=== PATIENT | female | born 1950 | race Caucasian/White ===

== ENCOUNTER 2025-05-13 05:54 | Day surgery (SDC) | payer MEDICARE, MEDICAID, SELFPAY ==
--- NOTE | 2025-05-10 12:17 | EKG12_ITS ---
Test Reason : PREOP Blood Pressure : */* mmHG Vent. Rate : 63 BPM Atrial Rate : 63 BPM P-R Int : 158 ms QRS Dur : 86 ms QT Int : 434 ms P-R-T Axes : 72 12 44 degrees QTcB Int : 444 ms Normal sinus rhythm Normal ECG Confirmed by DENEEN CHU, SUNSHINE ([id number]), sound editor MARIA GUADALUPE GUALLPA ([id number]) on 05/11/2025 8:25:26 AM Referred By: Yung Villatoro Confirmed By: SUNSHINE BROTHERS MD
[2025-05-10 13:34] LABS: Hematocrit 35.2 % (37-47); Hemoglobin 11.2 g/dL (12.0-15.0); Immature Granulocytes Count 0.010 X10^3/uL (0.0-0.0); Mean Corp Hgb Conc 31.8 g/dL (32-36); Mean Corpuscular Volume 93.9 fL (81-99); Mean Platelet Vol. 10.9 fl (6.2-12.0); NRBC Flagged by Analyzer 0 % (0-5); Platelet Count 247 K/mm3 (150-450); RBC Distribution Width CV 14.0 % (11.6-14.6); RBC Distribution Width SD 48.1 fl (35.1-43.9); Red Blood Count 3.75 M/mm3 (4.2-5.4); White Blood Count 6.9 K/mm3 (4.4-11.0)
[2025-05-10 13:59] LABS: AST(SGOT) 32 U/L (<=31); Alanine Aminotransfer ALT/SGPT 22 U/L (<=34); Albumin, Serum 4.1 g/dL (3.4-4.8); Alkaline Phosphatase 115 U/L (35-104); Anion Gap 8 (5-15); BUN 9 mg/dL (4-19); BUN/Creat Ratio 11.4 RATIO (10-20); Calcium,Total 9.2 mg/dL (7.6-11.0); Carbon Dioxide 26.4 mmol/L (21.0-32.0); Chloride 106 mmol/L (98-108); Globulin 2.6 g/dL (2.2-4.2); Glucose 82 mg/dL (70-99); Potassium 4.1 mmol/L (3.3-5.1)
--- NOTE | 2025-05-11 17:47 | PAT.ANE_ITS ---
Pre-Assessment Diagnosis/Proposed Procedure Planned Operative Procedure(s): (R) Osteotomy of the right first digit, Arthrodesis of the right second digit with possible arthroplasty, Right foot hardware removal. 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 When Was Last Pacemaker Check QUESTION #4 FULL TEXT: You/Your Family Experience fever (hyperthermia) with Anesthesia Last Oral Intake Last Oral intake: Last Oral Intake NPO since Meds taken in AM with sips of water? Meds patient instructed to take am of surgery PONV PONV - etl software engineer: PONV - etl software engineer Female Yes 05/09/25 11:43 HX of Motion Sickness No 05/09/25 11:43 HX of N/V After Surgery No 05/09/25 11:43 Non-Smoker Yes 05/09/25 11:43 Duration of Surgery greater No 05/09/25 11:43 than 60 minutes Number of Risk Factors 2 05/09/25 11:43 PONV Score Moderate Risk 05/09/25 11:43 Height & Weight Height & Weight: Anesthesia: Height & Weight Height 5 ft 2 in 08/26/13 13:52 Respiratory Assessment Respiratory Assessment - etl software engineer: Respiratory Tract Infection Hx - etl software engineer Hx Respiratory Tract Infection No 05/09/25 11:43 STOP Sleep Apnea STOP Sleep Apnea - etl software engineer: STOP Sleep Apnea - etl software engineer Hx Hypertension No 05/09/25 11:43 Hx Sleep Apnea No 05/09/25 11:43 CPAP No 08/19/13 11:15 BIPAP No 08/19/13 11:15 Do you snore loudly (louder No 05/09/25 11:43 than talking or can be heard Do you often feel tired/ No 05/09/25 11:43 fatigued/ sleepy during daytime? Has anyone observed you stop No 05/09/25 11:43 breathing during sleep? STOP Results Negative 05/09/25 11:43 QUESTION #5 FULL TEXT : Do you snore loudly (louder than talking or can be heard through closed doors)? 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 Specify any problems Hx of Preganancy in last 3 N/A 05/09/25 11:43 Months Nurse Filling Out Transfusion NBUCHER 05/09/25 11:43 & Questions: Date: 05/09/25 05/09/25 11:43 Time: 11:44 05/09/25 11:43 Patient unable to answer at this time (ie. confused, unrespo /Reproduction History /Reproductive History - etl software engineer: /Reproductive Hx- etl software engineer Hx Now No 05/09/25 11:43 Gestational Age (in weeks): EDC: Hx Hx Para Hx Section SAB No 05/09/25 11:43 Does the father of the baby or his family experience fever w Father of the baby Malignant Hypertension history comment [facility] Medical History (Updated 05/09/25 @ 11:52 by Krystle Hassan) Wears glasses Depression Anxiety Arthritis Wears dentures History of hiatal hernia History of IBS Non-smoker History of stress test Cardiology follow-up encounter Home Medications ?Medication ?Instructions ?Recorded ?Last Taken ?Type Bifidobacterium longum 10 million 10,000,000 cell PO D AILY 05/09/25 Unknown History cell capsule (Align (B.longum)) citalopram 40 mg tablet 40 mg PO DAILY 05/09/25 Unkn own History hydroxyzine HCl 25 mg tablet 25 mg PO TID PRN anxiety 05/09/25 Unknown History metoprolol succinate 25 mg 25 mg PO DAILY 12/15/25 Unk nown History tablet,extended release 24 hr pregabalin 100 mg capsule 100 mg PO TID 05/09/25 Unkno wn History vit C 250 mg-vit E 90 mg-zinc 40 1 tab PO BID 05/09/25 Unknown History mg-copper 1 [id number] capsule ([facility] AREDS-2) Allergy/AdvReac Type Severity Reaction Status Date / Time No Known Allergies Allergy Verified 05/09/25 11:36 Surgical History (Updated 05/09/25 @ 11:52 by Krystle Hassan) History of bilateral cataract extraction History of esophagogastroduodenoscopy (EGD) History of colonoscopy History of cholecystectomy History of ankle surgery History of back surgery History of foot surgery (~2021) History of brachioplasty (~2013) Social History Smoking Status: Never smoker Audit: Pertinent Findings Pertinent Findings EKG Perinent findings: 05/10/2025. Normal sinus rhythm Stress test pertinent findings: January 17, 2023. EF of 76%. No evidence for inducible ischemia. No evidence of scarred myocardium. Consult pertinent findings: 12/05/2022. Dr. Goss?cardiology. 1. Palpitations-likely secondary to PVCs. Continue Toprol-XL. 2. Generalized anxiety disorder?on Wellbutrin. 3. Dyspnea on exertion-questionable anginal equivalent. Holter monitor indicated a 2% burden. Will proceed with a nuclear stress test. Additional pertinent findings: August 2022. Holter monitor. Sinus rhythm. Occasional PVCs equals 2% burden. Sinus tachycardia for 18% of the time. 2 runs of nonsustained supraventricular tachycardia. Recommendation Anesthesia Recommendation Anesthesia recommendation: OPTIMIZED for anesthesia
[2025-05-13] VITALS (8 sets, daily range): BP systolic 90–145; BP diastolic 57–94; PULSE 68–80; RESP 12–18; TEMP 36.6–36.8; O2SAT 95–96; BMI 25.0
--- OUTSIDE RECORDS SUMMARY | 2025-05-13 05:58 | XMS RPT_ITS | CCD ---
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 Name Role Phone RODERICK HIDALGO Unavailable Unavailable CHAY PRECIADO Unavailable Unavailable ESTEFANY PRECIADO Unavailable Unavailable CHAY PRECIADO Unavailable Unavailable ESTEFANY PRECIADO Unavailable Unavailable ESTEFANY PRECIADO Primary Care Unavailable CHARITY HUANG Attending Unavailable CHARITY HUANG Admitting Unavailable Estefany Preciado MD Primary Care Provider Estefany Preciado MD Primary Care Provider Franko Wiley DO Unavailable Roderick Hidalgo DO Unavailable [phone] Dorita Cabrera DO Unavailable Chay Preciado MD Unavailable Estefany Preciado MD Unavailable Gagan Goodrich MD Unavailable SasEben ferreira DO Unavailable [phone] [place], [place] Unavailable Sagar Stout DO Unavailable Markel BARAHONA, Elis Unavailable Unavailable Markel BARAHONA, Elis Unavailable Unavailable Roderick Hidalgo DO Unavailable Moc, [place] Unavailable Estefany Preciado MD Primary Care Provider Franko Wiley DO Unavailable Roderick Hidalgo DO Unavailable Deborah DOE Dorita Unavailable Chay Preciado MD Unavailable Estefany Preciado MD Unavailable [phone] Gagan Goodrich MD Unavailable Sashanna DO River Unavailable [phone] [place], [place] Unavailable Girish DO Sagar K Unavailable GwenRoderick kan DO Unavailable [phone] [place], [place] Unavailable Markel BARAHONA, Elis Unavailable Unavailable Franko Wiley DO Unavailable [phone] Roderick Hidalgo DO Unavailable Deborah DOE Dorita Unavailable Chay Preciado MD Unavailable Estefany Preciado MD Unavailable [phone] Gagan Goodrich MD Unavailable Dakota Eben DOE Unavailable [phone] Girish DOE Sagar K Unavailable [place], [place] Unavailable Markel BARAHONA, Elis Unavailable Unavailable FRANKO MAURO Admitting Unavailable FRANKO MAURO Attending Unavailable ESTEFANY PRECIADO Primary Care Unavailable Ny DO, [place] [facility] Primary Care [facility] er PROVIDER, UNKNOWN Referring Unavailable PROVIDER, UNKNOWN Primary Care Unavailable [facility] er Susan King RN Unavailable Unavailable Estefany Preciado MD Primary Care Provider [facility] [place] [facility] Primary Care Unavai lable [facility], [facility] Referring Unav[place]able [place], [facility] Primary Care Unavai lable SELF Referring Unavailable DEVORAH SALAZAR Attending Unavailable [facility], [place] Primary Care Unavai labSTEPHEN Egan Referring Unavailable [facility], [facility] Primary Care Unavai PÉREZ Tovar Attending Unavailable STEPHEN RIZO Referring Unavailable [place], [facility] Primary [facility] UnaSTEPHEN Lima Referring Unavailable [place], [facility] Primary Care STEPHEN Paulino Referring Unavailable [place] WRIGHT Referring Unavailable [place], [facility] Primary Care UnaSTEPHEN Lima Referring Unavailable [place] [facility] [place] [facility] Primary Care Unavai labkaren SANTIAGO CAITLIN Y Attending Unavailable STEPHEN RIZO Referring Unavailable [place], [facility] Primary Care [place] [facility] Referring [place]able [place], [facility] Primary Care STEPHEN Paulino Referring Unavailable [place], [facility] Care Unavai labCAITLIN Dawson Y Referring Unavailable [place], [facility] Primary Care DEVORAH Keita Referring Unavailable [place] [facility] Primary Care UnavaCAITLIN Hylton Y Referring Unavailable [place] [facility] Primary Care DEVORAH Keita Referring Unavailable KALKADEVORAH Referring Unavailable [place] [facility] Primary Care [place]as[place]able [place] [facility] Primary Care ZI Colbert [facility] ZI Colbert Referring Unavailable [place] [facility] Primary Care [place]able [place] [facility] Referring [place]able [place] [facility] Primary Care DEVORAH Keita Referring Unavailable [place] [facility] Primary Care DEVORAH Keita Referring Unavailable MADAN WEBER Attending Unavailable [place] [facility] Primary Care DEVORAH Keita Referring Unavailable [place] [facility] Primary Care ZI Colbert Referring Unavailable Yung Villatoro Attending Unavailable JACK, CAITLIN Y Referring Unavailable [place] [facility] Primary Care Unavai labJELANI DawsonA Y Referring Unavailable [place] [facility] Primary Care UnavaDEVORAH Coleman Referring Unavailable [place] [facility] [place] [facility] Primary Care Unavai lable [facility] [place] [facility] Attending [place]able [place] [facility] Primary Care WILLAM Mejia Attending Unavailable ZI STANTON Referring Unavailable [place] [facility] Primary Care [place]able [place] [facility] Primary Care STEPHEN Paulino Attending Unavailable ZI STANTON Attending Unavailable [facility] Primary Care WILLAM Mejia Attending Unavailable ZI STANTON Referring Unavailable [place] [facility] Primary Care WILLAM Mejia Attending Unavailable ZI STANTON Referring [place]available [place] [facility] Primary [place] [facility] Primary Care STEPHEN Paulino Attending Unavailable [facility] Primary Care STEPHEN Paulino Attending Unavailable WILLAM MCHUGH Attending Unavailable ZI STANTON Referring Unavailable [place] [facility] Primary Care [place]able [place] [facility] Primary Care ZI Colbert Attending Unavailable ZI STANTON Referring Unavailable WILLAM MCHUGH Attending Unavailable [facility] Primary Care ZI Colbert Referring Unavailable [facility] Primary Care EBEN Umanzor Referring Unavailable ZI STANTON Attending Unavailable [facility] Attending Kipi lable [facility], [facility] Primary Care STEPHEN Paulino Attending Unavailable [facility] Primary Care ZI Colbert Referring Unavailable [facility] Primary Care WILLAM Mejia Attending Unavailable [facility] Primary Care STEPHEN Paulino Attending Unavailable [facility] Primary Care [place] [facility] Attending [place]able [place] [facility] Primary Care [place] [facility] Attending [place] [facility] Primary Care Unavai lable JEISON, WILLAM Attending Unavailable ZI STANTON Referring Unavailable [place] [facility] Primary [facility] kassie Medications Current Medications Medication Drug Class(es) Dates Sig (Normalized) Sig (Original) TYSHAWN B.LONGUM, 10 million cell cap (20 sources) Start: 12-28-2024 take 1 capsule by mouth once daily ALIGN, B.LONGUM, 10 million cell cap TAKE ONE CAPSULE BY MOUTH EVERY DAY 42 capsule 1 12/28/2024 Active Start: 09-27-2024 End: 12-28-2024 take 1 capsule by mouth once daily ALIGN, B.LONGUM, 10 million cell cap TAKE ONE CAPSULE BY MOUTH EVERY DAY 42 capsule 1 09/27/2024 12/28/2024 Discontinued Start: 09-27-2024 take 1 capsule by mo [facility] once daily ALIGN, B.LONGUM, 10 million cell cap TAKE ONE CAPSULE BY MOUTH EVERY DAY 42 capsule 1 09/27/2024 Active amoxicillin 500 mg oral capsule (20 sources) Penicillin-class Antibacterial Start: 09-22-2024 amoxicillin (AMOXIL) 500 mg capsule 09/22/2024 Active ascorbic acid 500 mg oral tablet (20 sources) Vitamin C Start: 02-14-2023 take 1 tablet by mouth once daily in the evening ascorbic acid, vitamin C, (VITAMIN C) 500 mg tablet Take 1 tablet by mouth once daily. 30 tablet 02/14/2023 3:01 PM EDT 02/14/2023 Active Comment on above: Take 1 tablet by sadia once daily. atorvastatin 20 mg oral tablet (20 sources) HMG-CoA Reductase Inhibitor Start: 07-02-2024 End: 07-02-2025 take 1 tablet by mouth once daily atorvastatin (LIPITOR) 20 mg tablet Indications: Lipids abnormal Take 1 tablet by mouth once daily. 90 tablet 3 07/02/2024 07/02/2025 Active bifidobacterium infantis 4 mg oral capsule (20 sources) Start: 01-14-2023 End: 06-21-2024 take 1 capsule by mouth once daily Bifidobacterium Infantis (ALIGN, B.INFANTIS,) 4 mg cap Indications: Other irritable bowel syndrome Take 1 capsule by mouth once daily. 42 capsule 1 06/21/2024 Active Comment on above: Take 1 capsule by mo ut once daily. take one capsule by mouth once daily budesonide 3 mg delayed release oral capsule (4 sources) Corticosteroid Start: 11-19-2022 End: 02-11-2023 take 3 capsules by mouth once daily, then take 2 capsules by mouth once daily, then take 1 capsule by mouth once daily budesonide, enteric coated (ENTOCORT EC) 3 mg 24 hr capsule Indications: Lymphocytic colitis Take 3 capsules by mouth once daily for 56 days, THEN 2 capsules once daily for 14 days, THEN 1 capsule once daily for 14 days. 210 capsule 0 11/19/2022 02/11/2023 Active Comment on above: Take 3 capsules by m outh once daily for 56 days, THEN 2 capsules once daily for 14 days, THEN 1 capsule once daily for 14 days. chlorhexidine gluconate 1.2 mg/ml mouthwash (20 sources) Start: 09-22-2024 Chlorhexidine Gluconate (PERIDEX) 0.12 % solution 09/22/2024 Active citalopram 20 mg oral tablet (5 sources) Serotonin Reuptake Inhibitor Start: 01-25-2025 End: 05-09-2025 take 1 tablet by mouth once daily, then take 2 tablets by mouth once daily citalopram (CELEXA) 20 mg tablet Take 1 tablet by mouth once daily for 14 days, THEN 2 tablets once daily. 194 tablet 01/25/2025 05/09/2025 Active docusate sodium 50 mg / sennosides, assisted 8.6 mg oral tablet (2 sources) Start: 11-21-2023 End: 12-01-2023 take 1 tablet by mouth twice daily senna-docusate (SENNA-S) 8.6-50 mg per tablet Take 1 tablet by mouth two times a day for 10 days. Hold for loose stool 20 tablet 0 11/21/2023 12/01/2023 Active hydrOXYzine hydrochloride 25 mg oral tablet (20 sources) Antihistamine Start: 03-22-2024 End: 01-28-2025 take 1 tablet by mouth three times daily as needed hydrOXYzine HCl (ATARAX) 25 mg tablet Indications: Anxiety with depression TAKE ONE TABLET BY MOUTH THREE TIMES A DAY NEEDED 90 tablet 01/28/2025 Active Start: 05-31-2023 End: 01-12-2024 take 1 tablet by mouth every eight hours as needed hydrOXYzine HCl (ATARAX) 25 mg tablet Take 1 tablet by mouth three times a day as needed. 30 tablet 2 10/14/2023 01/12/2024 Active Start: 09-04-2022 End: 11-12-2022 take 1 tablet by mouth once daily at bedtime hydrOXYzine HCl (ATARAX) 25 mg tablet Take 1 tablet by mouth daily at bedtime. 30 tablet 09/04/2022 11/12/2022 Discontinued Comment on above: Take 1 tablet by sadia th daily at bedtime. TAKE ONE TABLET BY M OUTH EVERY DAY AT BEDTIME prn ibuprofen 600 mg oral tablet (20 sources) Nonsteroidal Anti-inflammatory Drug Start: 09-22-2024 ibuprofen (MOTRIN) 600 mg tablet 09/22/2024 Active iv contrast (will be provided with radiology test) (3 sources) Start: 08-10-2024 End: 08-11-2024 iv contrast (will be provided with radiology test) MRI LSP Inject, intravenously, once for 1 dose. No IV access, insert saline lock prior to the beginning of sedation, infusion, injection of imaging exam. Discontinue saline lock post exam. If Pt. has a central line or IVAD, may access for administration according to line specific nursing protocol. Once exam is complete flush line and de-access according to line specific nursing protocol in the MR contrast administration guidelines link. 1 Each 08/10/2024 08/11/2024 Active Start: 07-16-2024 End: 07-17-2024 iv contrast (will be provide d with radiology test) Indications: Abnormal liver enzymes , Abnormal results of liver function studies CT LIVER W IVCON Inject, intravenously, once for 1 dose. No IV access, insert saline lock prior to the beginning of sedation, infusion, injection of imaging exam. Discontinue saline lock post exam. If Pt. has a central line or IVAD, may access for administration according to line specific nursing protocol. Once exam is complete flush line and de-access according to line specific nursing protocol in the CT contrast administration guidelines link. 1 Each 07/16/2024 07/17/2024 24 hr metoprolol succinate 25 mg extended release oral tablet (20 sources) beta-Adrenergic Alfonzo Start: 04-15-2024 End: 01-11-2025 take 1 tablet by mouth every hour metoprolol succinate ER (TOPROL XL) 25 mg 24 hr tablet TAKE ONE TABLET BY MOUTH EVERY AFTERNOON 90 tablet 1 01/11/2025 Active Start: 09-25-2022 End: 04-14-2024 take 1 tablet by mouth once daily metoprolol succinate ER (TOPROL XL) 25 mg 24 hr tablet take one tablet by mouth every day 90 tablet 01/15/2024 04/14/2024 Discontinued Comment on above: Take 1 tablet by sadia once daily. take one tablet by [facility] every day oxyCODONE hydrochloride 5 mg oral tablet (2 sources) Opioid Agonist Start: 11-21-2023 End: 11-28-2023 take 1 tablet by mouth every six hours as needed oxyCODONE IR (ROXICODONE) 5 mg immediate release tablet Indications: S/P lumbar fusion Take 1 tablet by mouth every 6 hours as needed for up to 7 days. 28 tablet 0 11/21/2023 11/28/2023 Active vit C/E/Zn/coppr/lutein/aad jennifer (PRESERVISION AREDS-2 ORAL) (20 sources) take 1 tablet by mouth twice daily vit C/E/Zn/coppr/lutein /zeaxan (PRESERVISION AREDS-2 ORAL) Take 1 tablet by mouth twice daily. Active take 1 tablet by sadia twice daily vit C/E/Zn/coppr/lutein/zeaxan (PRESERVI JAYMIE AREDS-2 ORAL) Take 1 tablet by mouth twice daily. 0 Active vit C/E/Zn/coppr /lutein/zeaxan (PRESERVISION AREDS-2 ORAL) Take by mouth. 0 Active Comment on above: Take by mouth. Take 1 tablet by sadia twice daily. Completed/Discontinued Medications Medication Drug Class(es) Dates Sig (Normalized) Sig (Original) acetaminophen 325 mg / oxyCODONE hydrochloride 5 mg oral tablet (10 sources) Opioid Agonist Start: 02-14-2023 End: 08-01-2023 take 1 tablet by mouth every six hours as needed for pain oxyCODONE-acetamin ophen (PERCOCET) 5-325 mg tablet Indications: Postoperative pain Take 1 tablet by mouth every 6 hours as needed for pain. 18 tablet 0 02/14/2023 08/01/2023 Discontinued Comment on above: Take 1 tablet by sadia every 6 hours as needed for pain. ALPRAZolam 0.5 mg disintegrating oral tablet (3 sources) Benzodiazepine Start: 12-03-2024 End: 12-03-2024 ALPRAZolam 0.5 mg dissolvable tablet Indications: ACUTE PROCEDURE-RELATED ANXIETY BRING 2 TABLETS TO PROCEDURE LOCATION ON THE DAY OF PROCEDURE, TO BE ADMINISTERED BY STAFF 1 tablet 12/03/2024 12/03/2024 Discontinued 24 hr buPROPion hydrochloride 150 mg extended release oral tablet (20 sources) Aminoketone Start: 07-11-2021 End: 02-13-2023 take 1 tablet by mouth once daily buPROPion XL (WELLBUTRIN XL) 150 mg 24 hr tablet Take 1 tablet by mouth once daily. 90 tablet 3 08/28/2022 02/13/2023 Discontinued Comment on above: Take 1 tablet by [facility] once daily. 12 hr carBAMazepine 100 mg extended release oral tablet (20 sources) Mood Stabilizer Start: 06-10-2024 End: 09-15-2024 take 1 tablet by mouth twice daily, then take 2 tablets by mouth twice daily carBAMazepine XR (TEGRETOL XR) 100 mg 12 hr tablet Indications: Trigeminal neuralgia Take 1 tablet by mouth two times a day for 7 days, THEN 2 tablets two times a day. 374 tablet 06/10/2024 09/07/2024 Discontinued colestipol hydrochloride 1000 mg oral tablet (4 sources) Bile Acid Sequestrant Start: 10-31-2022 End: 01-29-2023 take 1 tablet by mouth twice daily colestipol (COLESTID) 1 gram tablet Indications: Chronic diarrhea Take 1 tablet by mouth twice daily. 180 tablet 10/31/2022 01/14/2023 Discontinued (Discontinued by Patient) Comment on above: Take 1 tablet by [facility] twice daily. 1 ml dexamethasone phosphate 10 mg/ml injection (2 sources) Corticosteroid Start: 09-23-2024 End: 09-23-2024 dexAMETHasone sodium phosphate 10 mg injection (DECADRON) Start: 09-23-2024 End: 09-23-2024 10 mg, OTHER, ONCE, 1 dose, On [facility] 09/23/24 at 1400, Administer over 5 minutes. dicyclomine hydrochloride 20 mg oral tablet (8 sources) Anticholinergic Start: 09-04-2022 End: 01-14-2023 take 1 tablet by mouth at bedtime dicyclomine (BENTYL) 20 mg tablet Take 1 tablet by mouth before meals and at bedtime. 90 tablet 09/04/2022 01/14/2023 Discontinued (Discontinued by Patient) Comment on above: Take 1 tablet by sadia before meals and at bedtime. DULoxetine 60 mg delayed release oral capsule (20 sources) Serotonin and Norepinephrine Reuptake Inhibitor Start: 07-11-2021 End: 01-25-2025 take 1 capsule by mouth once daily DULoxetine (CYMBALTA) 60 mg capsule TAKE ONE CAPSULE BY MOUTH EVERY DAY 90 capsule 3 08/18/2024 01/25/2025 Discontinued (Course of therapy completed) Comment on above: Take 1 capsule by mo [facility] once daily. 12 hr hyoscyamine sulfate 0.375 mg extended release oral tablet (5 sources) Start: 08-28-2022 End: 09-04-2022 take 1 tablet by mouth twice daily hyoscyamine SR (LEVBID) 0.375 mg 12 hr tablet Take 1 tablet by mouth twice daily. 60 tablet 2 08/28/2022 09/04/2022 Discontinued (Course of therapy completed) Comment on above: Take 1 tablet by sadia twice daily. iohexol 300 mg injection (OMNIPAQUE 300) (4 sources) Start: 01-06-2025 End: 01-06-2025 iohexol 300 mg injection (OMNIPAQUE 300) Start: 01-06-2025 End: 01-06-2025 300 mg, OTHER, ONCE, 1 dose, On Jennifer 01/06/25 at 0830 Start: 09-23-2024 End: 09-23-2024 iohexol 300 mg injection (OM NIPAQUE 300) Start: 09-23-2024 End: 09-23-2024 300 mg, OTHER, ONCE, 1 dose, On Jennifer 09/23/24 at 1400 Lidocaine (6 sources) Antiarrhythmic, Amide Local Anesthetic Start: 01-06-2025 End: 01-06-2025 lidocaine 10 mg/mL (1 %) 100 mg injection (XYLOCAINE) Start: 01-06-2025 End: 01-06-2025 lidocaine 20 mg/mL (2 %) 200 mg injection (XYLOCAINE) Start: 01-06-2025 End: 01-06-2025 200 mg (10 mL), OTHER, ONCE, 1 dose, On Jennifer 01/06/25 at 0830 Start: 01-06-2025 End: 01-06-2025 100 mg (10 mL), OTHER, ONCE, 1 dose, On Jennifer 01/06/25 at 0830 Start: 09-23-2024 End: 09-23-2024 lidocaine (PF) 10 mg/mL (1 % ) 100 mg injection (XYLOCAINE) Start: 09-23-2024 End: 09-23-2024 100 mg, OTHER, ONCE, 1 dose, On Jennifer 09/23/24 at 1400 1 ml methylPREDNISolone acetate 40 mg/ml injection (2 sources) Corticosteroid Start: 01-06-2025 End: 01-06-2025 methylPREDNISolone acetate 40 mg injection (DEPO-Medrol) Start: 01-06-2025 End: 01-06-2025 40 mg, OTHER, ONCE, 1 dose, On Jennifer 01/06/25 at 0830 nabumetone 500 mg oral tablet (14 sources) Nonsteroidal Anti-inflammatory Drug Start: 10-02-2022 End: 01-14-2023 take 1 tablet by mouth twice daily as needed nabumetone (RELAFEN) 500 mg tablet TAKE ONE TABLET BY MOUTH TWICE A DAY NEEDED 60 tablet 1 10/02/2022 01/14/2023 Discontinued (Discontinued by Patient) Start: 07-11-2021 End: 08-28-2022 take 1 tablet by mouth twice daily as needed nabumetone (RELAFEN) 500 mg tablet TAKE ONE TABLET BY MOUTH TWICE A DAY NEEDED 60 tablet 1 06/27/2022 08/28/2022 Discontinued (Course of therapy completed) Comment on above: TAKE ONE TABLET BY M OUTH TWICE A DAY NEEDED Take 1 tablet by sadia th twice daily as needed. nitrofurantoin, macrocrystals 25 mg / nitrofurantoin, monohydrate 75 mg oral capsule (3 sources) Nitrofuran Antibacterial Start: 09-03-19 End: 09-08-19 take 1 capsule by mouth twice daily nitrofurantoin monohydrate and macrocrystal (MACROBID) 100 mg capsule Take 1 capsule by mouth twice daily for 5 days. 10 capsule 0 09/02/2022 09/07/2022 Comment on above: Take 1 capsule by mo [facility] twice daily for 5 days. perflutren lipid microspheres 1.3 mL in NaCl (PF) 0.9% 10 mL injection (DEFINITY) (20 sources) Start: 09-05-19 End: 12-04-19 24 perflutren lipid microspheres 1.3 mL in NaCl (PF) 0.9% 10 mL injection (DEFINITY) predniSONE 10 mg oral tablet (2 sources) Start: 06-10-19 End: 06-21-19 predniSONE (DELTASONE) 10 mg tablet Take 3 tablets by mouth for 3 days, then take 2 tablets by mouth for 3 days, then take 1 tablet by mouth for 3 days. 18 tablet 06/10/2024 06/21/2024 Discontinued pregabalin 100 mg oral capsule (20 sources) Start: 07-21-19 End: 05-03-20 take 1 capsule by mouth three times daily pregabalin (LYRICA) 100 mg capsule Indications: Fibromyalgia Take 1 capsule by mouth three times a day. 270 capsule 3 05/03/2024 09/07/2024 Discontinued Start: 06-12-2023 End: 06-11-2024 take 1 capsule by mouth three times daily pregabalin (LYRICA) 50 mg capsule Indications: Fibromyalgia Take 1 capsule by mouth three times a day. 270 capsule 3 06/12/2023 08/01/2023 Discontinued take 1 capsule by mo [facility] twice daily pregabalin (LYRICA) 75 mg capsule Take 75 mg by mouth two times a day. Active Comment on above: Take 1 capsule by [facility] three times a day. 125 ml sodium chloride 9 mg/ml prefilled syringe (20 sources) Start: 3 End: 4 sodium chloride 0.9 % (flush) 10 mL (BD POSIFLUSH) tiZANidine 2 mg oral tablet (8 sources) Central alpha-2 Adrenergic Agonist Start: 4 End: 4 take 1 tablet by mouth every eight hours as needed tiZANidine (ZANAFLEX) 2 mg tablet Indications: S/P lumbar fusion , Lumbar radiculopathy Take 1 tablet by mouth every 8 hours as needed for up to 21 doses. 21 tablet 0 11/21/2023 12/12/2023 Discontinued Problems Active Problems Problem Classification Problem Date Documented Da te Episodic/Chronic Anxiety disorders (20 sources) Generalized anxiety disorder; Translations: [Generalized anxiety disorder] Onset: 07-11-2021 Resolved: 07-15-2023 07-11-2021 Chronic Cardiac dysrhythmias (20 sources) Multiple premature ventricular complexes; Translations: [Ventricular premature depolarization] Onset: 01-17-2023 12-05-2022 Chronic Conditions associated with dizziness or vertigo (2 sources) Dizziness and giddiness; Translations: [Benign paroxysmal vertigo, unspecified ear] Onset: 03-10-2025 Episodic E Codes: Natural/environment (1 source) Overexertion from prolonged static or awkward postures, initial encounter; Translations: [OVEREXERT PROLNG STAT/AWK PST INIT] Onset: 07-23-2021 Episodic E Codes: Overexertion (1 source) Other slipping, tripping and stumbling without falling, initial encounter; Translations: [OTH SLIP TRIP STUMBL NO FALL INIT] Onset: 07-23-2021 Episodic Esophageal disorders (1 source) Gastro-esophageal reflux disease without esophagitis; Translations: [Gastroesophageal reflux disease, unspecified whether esophagitis present] Onset: 07-05-2024 Chronic Gastritis and duodenitis (20 sources) Chronic gastritis; Translations: [Unspecified chronic gastritis without bleeding] Onset: 07-05-2024 07-05-2024 Chronic Genitourinary symptoms and ill-defined conditions (1 source) Pat hematuria; Translations: [Gross hematuria] Episodic Malaise and fatigue (1 source) Fatigue; Translations: [Other fatigue] Episodic Noninfectious gastroenteritis (4 sources) Lymphocytic colitis; Translations: [Other and unspecified noninfectious gastroenteritis and colitis] 07-08-2023 Chronic Noninfectious gastroenteritis (3 sources) Chronic diarrhea; Translations: [Noninfective gastroenteritis and colitis, unspecified] Episodic Osteoarthritis (20 sources) Degenerative joint disease involving multiple joints; Translations: [Polyosteoarthritis, unspecified] Onset: 08-04-2023 07-15-2023 Chronic Other connective tissue disease (3 sources) Other symptoms and signs involving the musculoskeletal system; Translations: [Other musculoskeletal symptoms referable to limbs] Onset: 07-24-2023 07-24-2023 Episodic Other gastrointestinal disorders (1 source) Irritable bowel syndrome; Translations: [Other irritable bowel syndrome] 06-21-2024 Chronic Other gastrointestinal disorders (2 sources) Esophageal dysphagia; Translations: [Other dysphagia] 06-21-2024 Episodic Other gastrointestinal disorders (1 source) Altered bowel function; Translations: [Change in bowel habit] 01-25-2025 Episodic Other gastrointestinal disorders (1 source) Change in bowel habit; Translations: [Change in bowel habits] Onset: 01-25-2025 Episodic Other liver diseases (3 sources) Alkaline phosphatase raised; Translations: [Abnormal levels of other serum enzymes] 06-21-2024 Episodic Other liver diseases (2 sources) Liver enzymes abnormal; Translations: [Abnormal levels of other serum enzymes] 08-11-2024 Episodic Other nervous system disorders (1 source) Other chronic pain; Translations: [Chronic bilateral low back pain without sciatica] Onset: 02-18-2025 Chronic Other nervous system disorders (1 source) Other acute postprocedural pain; Translations: [Postoperative pain] Onset: 02-14-2023 Episodic Other nervous system disorders (13 sources) Impairment of balance; Translations: [Other abnormalities of gait and mobility] 12-03-2024 Episodic Other nervous system disorders (5 sources) Abnormal gait; Translations: [Unspecified abnormalities of gait and mobility] 01-28-2025 Episodic Other nervous system disorders (2 sources) Unspecified abnormalities of gait and mobility; Translations: [Gait abnormality] Onset: 03-10-2025 Episodic Other nervous system disorders (3 sources) Other abnormalities of gait and mobility; Translations: [Impairment of balance] Onset: 12-03-2024 Episodic Other non-traumatic joint disorders (1 source) Pain in right ankle and joints of right foot; Translations: [PAIN IN RIGHT ANKLE] Onset: 07-23-2021 Episodic Other nutritional; endocrine; and metabolic disorders (3 sources) Obesity; Translations: [Obesity, unspecified] 07-21-2023 Chronic Other nutritional; endocrine; and metabolic disorders (1 source) Body mass index 30+ - obesity; Translations: [Body mass index (BMI) 34.0-34.9, adult] 06-10-2024 Chronic Other nutritional; endocrine; and metabolic disorders (2 sources) Body mass index (BMI) 34.0-34.9, adult; Translations: [Class 1 obesity with body mass index (BMI) of 34.0 to 34.9 in adult, unspecified obesity type, unspecified whether serious comorbidity present] Onset: 06-10-2024 Chronic Other nutritional; endocrine; and metabolic disorders (1 source) Overweight in adulthood with body mass index of 25 or more but less than 30; Translations: [Overweight] 01-25-2025 Episodic Other nutritional; endocrine; and metabolic disorders (1 source) Overweight; Translations: [Overweight with body mass index (BMI) of 25 to 25.9 in adult] Onset: 01-25-2025 Episodic Other nutritional; endocrine; and metabolic disorders (1 source) Body mass index (BMI) 25.0-25.9, adult; Translations: [Overweight with body mass index (BMI) of 25 to 25.9 in adult] Onset: 01-25-2025 Episodic Other screening for suspected conditions (not mental disorders or infectious disease) (20 sources) Patient encounter status; Translations: [Encounter for screening mammogram for malignant neoplasm of breast] Onset: 06-10-2024 Episodic Spondylosis; intervertebral disc disorders; other back problems (18 sources) Inflammation of sacroiliac joint; Translations: [Sacroiliitis, not elsewhere classified] Onset: 10-08-2024 10-08-2024 Chronic Sprains and strains (1 source) Strain of unspecified muscle and tendon at ankle and foot level, right foot, initial encounter; Translations: [STRAIN UNS MANDT ANK FT LEVL RT INIT] Onset: 07-23-2021 Episodic Unclassified (1 source) Unknown / UNK(Unknown) Onset: 04-22-2017 Unclassified (1 source) Acute midline low back pain without sciatica; Translations: [Acute midline low back pain without sciatica] Onset: 07-24-2023 Unclassified (1 source) Chronic bilateral low back pain without sciatica; Translations: [Chronic bilateral low back pain without sciatica] Onset: 02-18-2025 Unclassified (1 source) Class 1 obesity with body mass index (BMI) of 34.0 to 34.9 in adult, unspecified obesity type, unspecified whether serious comorbidity present; Translations: [Class 1 obesity with body mass index (BMI) of 34.0 to 34.9 in adult, unspecified obesity type, unspecified whether serious comorbidity present] Onset: 06-21-2024 Past or Other Problems Problem Classification Problem Date Documented Da te Episodic/Chronic Abdominal hernia (20 sources) Hiatal hernia; Translations: [Diaphragmatic hernia without obstruction or gangrene] Onset: 07-05-2024 07-05-2024 Episodic Cardiac dysrhythmias (20 sources) Palpitations; Translations: [Palpitations] Onset: 12-05-2022 Episodic Other connective tissue disease (20 sources) Pain in right foot; Translations: [Pain in right foot] Onset: 08-28-2022 Resolved: 07-15-2023 Episodic Other connective tissue disease (20 sources) Fibromyalgia; Translations: [Fibromyalgia] Onset: 05-20-2023 05-20-2023 Episodic Other connective tissue disease (20 sources) Recurrent falls ; Translations: [Repeated falls] Onset: 08-04-2023 07-15-2023 Episodic Other connective tissue disease (20 sources) History of lumbar fusion; Translations: [Arthrodesis status] Onset: 11-20-2023 11-20-2023 Episodic Other connective tissue disease (1 source) Repeated falls; Translations: [Recurrent falls while walking] Onset: 08-04-2023 Episodic Other connective tissue disease (1 source) Arthrodesis status; Translations: [S/P lumbar fusion] Onset: 11-20-2023 Episodic Other connective tissue disease (1 source) Fibromyalgia; Translations: [Fibromyalgia] Onset: 05-20-2023 Episodic Other gastrointestinal disorders (2 sources) Other dysphagia; Translations: [Esophageal dysphagia] Onset: 06-24-2024 Episodic Other liver diseases (20 sources) Elevated liver enzymes level; Translations: [Abnormal levels of other serum enzymes] Onset: 05-20-2023 Episodic Other liver diseases (2 sources) Abnormal levels of other serum enzymes; Translations: [Abnormal liver enzymes] Onset: 07-13-2024 Episodic Other lower respiratory disease (1 source) Dyspnea, unspecified Onset: 04-22-2017 Episodic Other lower respiratory disease (20 sources) Dyspnea on exertion; Translations: [Other forms of dyspnea] Onset: 01-17-2023 12-05-2022 Episodic Other nervous system disorders (20 sources) Postoperative pain ; Translations: [Other acute postprocedural pain] Onset: 02-14-2023 Resolved: 07-15-2023 02-14-2023 Episodic Other nervous system disorders (20 sources) Trigeminal neuralgia; Translations: [Trigeminal neuralgia] Onset: 06-20-2024 06-10-2024 Episodic Other nervous system disorders (1 source) Trigeminal neuralgia; Translations: [Trigeminal neuralgia] Onset: 06-20-2024 Episodic Other non-traumatic joint disorders (20 sources) Chronic pain of left upper limb; Translations: [Pain in left shoulder] Onset: 07-11-2021 07-11-2021 Episodic Other non-traumatic joint disorders (20 sources) Joint pain; Translations: [Pain in unspecified joint] Onset: 07-27-2023 07-21-2023 Episodic Spondylosis; intervertebral disc disorders; other back problems (20 sources) Acute low back pain; Translations: [Acute midline low back pain without sciatica] Onset: 07-24-2023 07-24-2023 Episodic Superficial injury; contusion (20 sources) Contusion of coccyx; Translations: [Contusion of lower back and pelvis, initial encounter] Onset: 07-11-2021 Resolved: 07-15-2023 07-11-2021 Episodic Unclassified (1 source) History of lumbar fusion 08-10-2024 Unclassified (2 sources) Patient encounter status 08-31-2024 Results Test Name Value Interpretation Reference Range Facility [facility] 03-31-2025 CNOV Office Visit (AGSPIN E3) BRENT MOSQUEDA ([id number]) 1950 F Date Time Provider Department 03/31/25 11:30 AM WILLAM MCHUGH AGSPINE3 During your visit today, we recorded the following information about you: Willam Mchugh DC 03/31/2025 1:50 PM Signed Chiropractor Progress/Procedure Note Brent Mosqueda is a 74 year old female who presents for Chiropractic follow up for Low Back Pain [facility] 12/22 [facility] Have you noticed any improvement since your last visit? Has had continuous reduction of symptoms since the previous visit. Patient is currently having no pain today. Have you done any home exercises that Dr. Mchugh gave you? None given per insurance coverage What is your response to the home exercises? N/A What aggravates your pain? 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 0/10 How low has your pain level been on the pain scale since your last visit? 0/10 How high has your pain level been on the pain scale since your last visit? /. Since your last visit with Dr. Mchugh have you had any Images or injections? None REVIEW OF SYSTEMS: The patient reports weakness in both legs. PHYSICAL EXAM: The patient is alert and oriented in no acute distress. There is moderate hypertonicity through the lumbar paraspinal muscles. Range of motion: improved Pain on extension and rotation. Motor Strength: reduced Neurovascular intact. Orthopedic testing: NA. Spinal segmental dysfunction: na The patient is alert and oriented in no acute distress. I have confirmed and edited as necessary the HPI and ROS obtained by others. IMPRESSION AND PLAN: (M54.50, G89.29) Chronic bilateral low back pain without sciatica (primary encounter diagnosis) No orders found for this visit on 03/31/25. Treatments: SEATED Acupuncture: 38 minutes, lumbar spine, needles re-inserted every 15 minutes. Time in: 11:34 Time out: 12:34 Plan/Goal: Continue care until goal of standing/walking with less pain, less severe pain overall, and less pain in daily activity. Home Exercise Program has not been given. Return: 2 times, month Patient responded well, instructed to call with problems or concerns, responded well to all treatments. I personally performed treatments/procedures listed. Dr. Willam Mchguh, [place] Referring Provider: ZI STANTON [[id number]] Allergies As of Date: 03/31/2025 (No Known Allergies) Date Reviewed: 03/31/2025 Reviewed by: Kan Flores LMT - Fully Assessed Reason for Visit: Low Back Pain [126] Primary Visit Diagnosis:Chronic bilateral low back pain without sciatica [M54.50, G89.29] Order(s):ACUPUNCT W/O STIMUL 15 MIN [[id number]] Order #: [id number] ACUPUNCT W/O STIMUL ADDL 15M [[id number]] Order #: [id number]: 2 Prescriptions as of 03/31/2025 - hydrOXYzine HCl (ATARAX) 25 mg tablet TAKE ONE TABLET BY MOUTH THREE TIMES A DAY NEEDED - citalopram (CELEXA) 40 mg tablet Take 1 tablet by mouth once daily. - citalopram (CELEXA) 20 mg tablet Take 1 tablet by mouth once daily for 14 days, THEN 2 tablets once daily. - metoprolol succinate ER (TOPROL XL) 25 mg 24 hr tablet TAKE ONE TABLET BY MOUTH EVERY AFTERNOON - ALIGN, B.LONGUM, 10 million cell cap TAKE ONE CAPSULE BY MOUTH EVERY DAY - amoxicillin (AMOXIL) 500 mg capsule - Chlorhexidine Gluconate (PERIDEX) 0.12 % solution - ibuprofen (MOTRIN) 600 mg tablet - pregabalin (LYRICA) 75 mg capsule Take 75 mg by mouth two times a day. - Bifidobacterium Infantis (TYSHAWN B.INFANTSHAHRIAR,) 4 mg cap Take 1 capsule by mouth once daily. - vit C/E/Zn/coppr/lutein/ada jennifer (PRESERVISION AREDS-2 ORAL) Take 1 tablet by mouth twice daily. Problem List As Of Date 03/31/2025 Noted Resolved MERLYN (generalized anxiety disorder) [F41.1] 07/11/2021 07/15/2023 Contusion of coccyx [S30.0XXA] 07/11/2021 07/15/2023 Chronic left shoulder pain [M25.512, G89.29] 07/11/2021 Foot pain, right [M79.671] 08/28/2022 07/15/2023 Palpitations [R00.2] 12/05/2022 VELÁZQUEZ (dyspnea on exertion) [R06.09] 01/17/2023 PVC (premature ventricular contraction) [I49.3] 01/17/2023 Postoperative pain [G89.18] 02/14/2023 07/15/2023 Anxiety with depression [F41.8] 05/20/2023 Fibromyalgia [M79.7] 05/20/2023 Elevated liver enzymes [R74.8] 05/20/2023 Chronic joint pain [M25.50, G89.29] 07/27/2023 Spinal stenosis of lumbar region with neurogeni*07/27/2023 Generalized osteoarthrosis [M15.9] 08/04/2023 Recurrent falls while walking [R29.6] 08/04/2023 Lumbar radiculopathy [M54.16] 08/24/2023 Preop examination [Z01.818] 11/07/2023 S/P lumbar fusion [Z98.1] 11/20/2023 Trigeminal neuralgia [G50.0] 06/20/2024 Elevated LFTs [R79.89] 06/28/2024 Hiatal hernia [K44.9] 07/05/2024 Chronic gastritis without bleeding [K29.50] 07/05/2024 Generalized arthritis [M19.90] 01/30/2025 Arthritis of both hands [M19.041, M19.042] 01/30/2025 G (more content not included)... Normal [facility] CNTHERAPYon 03-17-2025 CNTHERAPY OT/PT/Speech Visit (LDPT) BRENT MOSQUEDA ([id number]) 1950 F Date Time Provider Department 03/17/25 11:30 AM MAGNOLIA BANKS LDPT Date Time Provider Department Center 03/17/2025 11:30 AM [id number], CHRISTI LDPT [facility] Reason for Visit: Physical Therapy [503] Primary Visit Diagnosis:Imbalance [R26.89] Other Visit Diagnoses:Recurrent falls while walking [R29.6] Lumbar radiculopathy [M54.16] Gait abnormality [R26.9] Dizziness [R42] Benign paroxysmal positional vertigo, unspecified laterality [H81.10] Allergies As of Date: 03/17/2025 (No Known Allergies) Date Reviewed: 03/11/2025 Reviewed by: Alejo Ibarra LMT - Fully Assessed Prescriptions as of 03/17/2025 - hydrOXYzine HCl (ATARAX) 25 mg tablet TAKE ONE TABLET BY MOUTH THREE TIMES A DAY NEEDED - citalopram (CELEXA) 40 mg tablet Take 1 tablet by mouth once daily. - citalopram (CELEXA) 20 mg tablet Take 1 tablet by mouth once daily for 14 days, THEN 2 tablets once daily. - metoprolol succinate ER (TOPROL XL) 25 mg 24 hr tablet TAKE ONE TABLET BY MOUTH EVERY AFTERNOON - ALIGN, B.LONGUM, 10 million cell cap TAKE ONE CAPSULE BY MOUTH EVERY DAY - amoxicillin (AMOXIL) 500 mg capsule - Chlorhexidine Gluconate (PERIDEX) 0.12 % solution - ibuprofen (MOTRIN) 600 mg tablet - pregabalin (LYRICA) 75 mg capsule Take 75 mg by mouth two times a day. - Bifidobacterium Infantis (TYSHAWN B.INFANTIS,) 4 mg cap Take 1 capsule by mouth once daily. - vit C/E/Zn/coppr/lutein/ada jennifer (PRESERVISION AREDS-2 ORAL) Take 1 tablet by mouth twice daily. Normal [facility] THERAPY NTon 03-17-2025 THERAPY NT HNO ID: [id number] Author: MAGNOLIA BANKS, PT Service: ? Author Type: Physical Therapist Type: Therapy (PT/OT/Speech/Resp) Filed: 03/17/2025 12:30 Note Text: Program_ID:[id number] Access Code: [email or web address] URL: [email or web address] Date: 03-17-2025 Prepared By: Magnolia Banks Program Notes Exercises - Romberg Stance - 3-5 x daily - 7 x weekly - 1 sets - 3 reps - 30 hold - Tandem Stance with Support - 3-5 x daily - 7 x weekly - 1 sets - 3 reps - 30 hold Normal [facility] CNOVon 03-11-2025 CNOV Office Visit (AGSPIN E3) BRENT MOSQUEDA ([id number]) 1950 F Date Time Provider Department 03/11/25 12:00 PM WILLAM MCHUGH AGSPINE3 During your visit today, we recorded the following information about you: Willam Mchugh DC 03/11/2025 2:02 PM Signed Chiropractor Progress/Procedure Note Brent Mosqueda is a 74 year old female who presents for Chiropractic follow up for Low Back Pain AO 11/22 acu Have you noticed any improvement since your last visit? Less pain for 1-2 days Have you done any home exercises that Dr. Mchugh gave you? None given What is your response to the home exercises? N/A What aggravates your pain? Non-specific ADLs What makes your pain better? Chiro care Current pain level? 2/10 How low has your pain level been on the pain scale since your last visit? 0/10 How high has your pain level been on the pain scale since your last visit? 5/10. Since your last visit with Dr. Mchugh have you had any Images or injections? No REVIEW OF SYSTEMS: The patient reports numbness or tingling. PHYSICAL EXAM: The patient is alert and oriented in no acute distress. There is moderate hypertonicity through the lumbar paraspinal muscles and gluteal muscles. Range of motion: improved Pain on extension, side bend, and rotation. Motor Strength: normal Neurovascular intact. Orthopedic testing: NA. Spinal segmental dysfunction: N/A. The patient is alert and oriented in no acute distress. I have confirmed and edited as necessary the HPI and ROS obtained by others. IMPRESSION AND PLAN: (M54.50, G89.29) Chronic bilateral low back pain without sciatica (primary encounter diagnosis) No orders found for this visit on 03/11/25. Treatments: Acupuncture: 38 minutes, lumbar spine, needles re-inserted every 15 minutes. MASSAGE CHAIR Time in: 12:01 Time out: 12:40 Plan/Goal: Continue care until goal of standing/walking with less pain, less severe pain overall, and less pain in daily activity. Return: 2 times, month Patient responded well, instructed to call with problems or concerns, responded well to all treatments. I personally performed treatments/procedures listed. Dr. Willam Mchugh, [place] Referring Provider: ZI STANTON [[id number]] Allergies As of Date: 03/11/2025 (No Known Allergies) Date Reviewed: 03/11/2025 Reviewed by: Alejo Ibarra LMT - Fully Assessed Reason for Visit: Low Back Pain [126] Primary Visit Diagnosis:Chronic bilateral low back pain without sciatica [M54.50, G89.29] Order(s):ACUPUNCT W/O STIMUL ADDL 15M [[id number]] Order #: [id number]: 2 ACUPUNCT W/O STIMUL 15 MIN [[id number]] Order #: [id number] Prescriptions as of 03/11/2025 - citalopram (CELEXA) 40 mg tablet Take 1 tablet by mouth once daily. - hydrOXYzine HCl (ATARAX) 25 mg tablet TAKE ONE TABLET BY MOUTH THREE TIMES A DAY NEEDED - citalopram (CELEXA) 20 mg tablet Take 1 tablet by mouth once daily for 14 days, THEN 2 tablets once daily. - metoprolol succinate ER (TOPROL XL) 25 mg 24 hr tablet TAKE ONE TABLET BY MOUTH EVERY AFTERNOON - TYSHAWN, B.LONGUM, 10 million cell cap TAKE ONE CAPSULE BY MOUTH EVERY DAY - amoxicillin (AMOXIL) 500 mg capsule - Chlorhexidine Gluconate (PERIDEX) 0.12 % solution - ibuprofen (MOTRIN) 600 mg tablet - pregabalin (LYRICA) 75 mg capsule Take 75 mg by mouth two times a day. - Bifidobacterium Infantis (TYSHAWN, B.INFANTIS,) 4 mg cap Take 1 capsule by mouth once daily. - vit C/E/Zn/coppr/lutein/ada jennifer (PRESERVISION AREDS-2 ORAL) Take 1 tablet by mouth twice daily. Problem List As Of Date 03/11/2025 Noted Resolved MERLYN (generalized anxiety disorder) [F41.1] 07/11/2021 07/15/2023 Contusion of coccyx [S30.0XXA] 07/11/2021 07/15/2023 Chronic left shoulder pain [M25.512, G89.29] 07/11/2021 Foot pain, right [M79.671] 08/28/2022 07/15/2023 Palpitations [R00.2] 12/05/2022 VELÁZQUEZ (dyspnea on exertion) [R06.09] 01/17/2023 PVC (premature ventricular contraction) [I49.3] 01/17/2023 Postoperative pain [G89.18] 02/14/2023 07/15/2023 Anxiety with depression [F41.8] 05/20/2023 Fibromyalgia [M79.7] 05/20/2023 Elevated liver enzymes [R74.8] 05/20/2023 Chronic joint pain [M25.50, G89.29] 07/27/2023 Spinal stenosis of lumbar region with neurogeni*07/27/2023 Generalized osteoarthrosis [M15.9] 08/04/2023 Recurrent falls while walking [R29.6] 08/04/2023 Lumbar radiculopathy [M54.16] 08/24/2023 Preop examination [Z01.818] 11/07/2023 S/P lumbar fusion [Z98.1] 11/20/2023 Trigeminal neuralgia [G50.0] 06/20/2024 Elevated LFTs [R79.89] 06/28/2024 Hiatal hernia [K44.9] 07/05/2024 Chronic gastritis without bleeding [K29.50] 07/05/2024 Generalized arthritis [M19.90] 01/30/2025 Arthritis of both hands [M19.041, M19.042] 01/30/2025 Gait abnormality [R26.9] 03/10/2025 Dizziness [R42] 03/10/2025 Benign paroxysmal positional vertigo [H81.10] 03/10/2025 Imbal (more content not included)... Normal [facility] [id number] 03-10-2025 [id number] HNO ID: [id number] Author: MAGNOLIA BANKS PT Service: ? Author Type: Physical Therapist Type: [id number] Filed: 03/10/2025 18:05 Note Text: [facility] Physical Therapy Plan of Care Certification Patient Name: Brent Mosqueda : 1950 [facility] #: [id number] Date: 03/10/2025 To: Caitlin Santiago MD From Therapist: Magnolia Banks PT RE: Patient Certification/ Recertification Your review, approval and electronic signature are required in order to comply with Payor: [facility] MEDICARE / Plan: [facility] MEDICARE / Product Type: Medicare / regulations. The identified Physical Therapy PLAN OF CARE for the patient is as follows: H81.10 Benign paroxysmal positional vertigo, unspecified laterality (primary encounter diagnosis) R26.9 Gait abnormality M54.16 Lumbar radiculopathy R26.89 Imbalance R42 Dizziness PLAN OF CARE: Assessment: Brent Mosqueda presents with chief complaint of imbalance that interferes with walking, stair negotiation . The patient presents with impairments in balance, overall function, posture, strength, and tissue tenderness. PROMIS? (Patient-Reported Outcomes Measurement Information System) scores were reviewed and identified as within normal limits. Prognosis for therapy is Good due to: current objective clinical presentation . Patient with balance deficits and possible left HC BPPV, cupulolithiasis. Demonstrates vestibular dysfunction with loss of balance with CTSIB testing, cervical spine also to be assessed. The patient will benefit from skilled therapy services to meet the goals established for this plan of care as noted below. Goals for Episode of Care: established 03/10/25 Patient will be able to correct postural deviations independently in order to allow for normal mechanics, to decrease current pain and prevent future recurrence. Patient will perform Romberg stance on firm surface with eyes closed for 30 seconds without LOB. Patient will improve FGA to WNL - no fall risk - in order to perform functional tasks with improved stability. Baseline to be determined next session. Patient will have negative positional testing for BPPV. Patient/family member will be independent in performing self PRT. Patient will verbalize the understanding of the diagnosis BPPV, how to recognize symptoms and what to do if they return. Patient will demonstrate normal active cervical spine range of motion to restore posture and complete ADLS with trace report of dizziness/imbalance. Patient will be independent with home exercise program and progression. Patient will return to prior level of function with all activities of daily living with trace reports of dizziness. Patient will demonstrate the ability to complete VOR in static and dynamic positions with trace report of dizziness. Patient Goals: to not be so wbbly and drunklike. Time Frame for Goals and Treatment : 06/08/25 Planned Interventions, Frequency, and Duration: Current Frequency: 1x/week Duration: 12 weeks Total Number of Visits Planned: 8 Planned Treatment Interventions: Therapeutic exercise (74330), Neuromuscular re-education (45467), Manual therapy (40606), Therapeutic activities (03287), Canalith Repositioning Maneuvers (46483) PLAN FOR NEXT VISIT: retest for HC BPPV and treat with appropriate CRM, assess c-spine and complete FGA Patient demonstrates good understanding of plan of care and treatment. The above goals and plan of care were discussed and agreed upon by patient/family. For further details regarding this patient refer to the Physical Therapy electronically documented visit dated 03/10/2025. Provider Attestation I have reviewed the treatment plan for Brent Mosqueda, [facility]# [id number] for the period of 03/10/25 -- 06/08/25, established on 03/10/2025. Signature certifies the need for therapy services. Normal [facility] CNTHERAPYon 03-10-2025 CNTHERAPY OT/PT/Speech Visit (LDPT) BRENT MOSQUEDA ([id number]) 1950 F Date Time Provider Department 03/10/25 10:00 AM MAGNOLIA BANKS LDPT Date Time Provider Department Center 03/10/2025 10:00 AM [id number], CHRISTI LDPT [facility] Reason for Visit: PT Eval [747] Primary Visit Diagnosis:Benign paroxysmal positional vertigo, unspecified laterality [H81.10] Other Visit Diagnoses:Gait abnormality [R26.9] Lumbar radiculopathy [M54.16] Imbalance [R26.89] Dizziness [R42] Allergies As of Date: 03/10/2025 (No Known Allergies) Date Reviewed: 02/22/2025 Reviewed by: Susan Beth MA - Fully Assessed Prescriptions as of 03/10/2025 - citalopram (CELEXA) 40 mg tablet Take 1 tablet by mouth once daily. - hydrOXYzine HCl (ATARAX) 25 mg tablet TAKE ONE TABLET BY MOUTH THREE TIMES A DAY NEEDED - citalopram (CELEXA) 20 mg tablet Take 1 tablet by mouth once daily for 14 days, THEN 2 tablets once daily. - metoprolol succinate ER (TOPROL XL) 25 mg 24 hr tablet TAKE ONE TABLET BY MOUTH EVERY AFTERNOON - TYSHAWN, B.LONGUM, 10 million cell cap TAKE ONE CAPSULE BY MOUTH EVERY DAY - amoxicillin (AMOXIL) 500 mg capsule - Chlorhexidine Gluconate (PERIDEX) 0.12 % solution - ibuprofen (MOTRIN) 600 mg tablet - pregabalin (LYRICA) 75 mg capsule Take 75 mg by mouth two times a day. - Bifidobacterium Infantis (TYSHAWN B.INFANTSHAHRIAR,) 4 mg cap Take 1 capsule by mouth once daily. - vit C/E/Zn/coppr/lutein/ada jennifer (PRESERVISION AREDS-2 ORAL) Take 1 tablet by mouth twice daily. Normal [facility] CNOVon 03-08-[address] [facility] Office Visit (FPDOYL ) BRENT MOSQUEDA ([id number]) 1950 F Date Time Provider Department 03/08/25 2:30 PM PORTIA CALHOUN FPDOYL During your visit today, we recorded the following information about you: Pulse Blood pressure Weight Height 60/minute 130/60 61.2 kg 1.575 m Portia Calhoun DO 03/13/2025 7:22 PM Signed Subjective The patient is a 74-year-old female with depression, presenting for follow-up and evaluation of citalopram efficacy and side effects. Brent Mosqueda is a 74-year-old female with a history of depression, presenting for follow-up. Depression: - Follow-up visit, last seen 6 weeks ago. - Started on citalopram 40 mg at last visit; reports some improvement in mood. - Experiences brain zaps occasionally, believes they are related to serotonin level fluctuations. - Denies missing doses of medication. - Lives with a narcissist who is very controlling; recent conflicts over personal finances. - Expresses desire to continue current medication for a longer period to assess effectiveness. Weight Loss: - Intentional weight loss from 188 lbs to 135 lbs over 8 months. - Practices intermittent fasting, eating only between 12:00 and 20:00. 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 Rizo REMOVAL GALLBLADDER FAMILY HISTORY Problem Relation Age of Onset other (multiple myeloma) Mother COPD Father No Known Problems Sister No Known Problems Brother No Known Problems Brother Colon Cancer No Family History SOCIAL HISTORY[1] Current Outpatient Medications Medication Sig hydrOXYzine HCl (ATARAX) 25 mg tablet TAKE ONE TABLET BY MOUTH THREE TIMES A DAY NEEDED citalopram (CELEXA) 20 mg tablet Take 1 tablet by mouth once daily for 14 days, THEN 2 tablets once daily. metoprolol succinate ER (TOPROL XL) 25 mg 24 hr tablet TAKE ONE TABLET BY MOUTH EVERY AFTERNOON Deborah VILLAGRAN.LONGUM, 10 million cell cap TAKE ONE CAPSULE BY MOUTH EVERY DAY amoxicillin (AMOXIL) 500 mg capsule Chlorhexidine Gluconate (PERIDEX) 0.12 % solution ibuprofen (MOTRIN) 600 mg tablet pregabalin (LYRICA) 75 mg capsule Take 75 mg by mouth two times a day. Bifidobacterium Infantis (TYSHAWN BCHANTELL,) 4 mg cap Take 1 capsule by mouth once daily. vit C/E/Zn/coppr/lutein/ada jennifer (PRESERVISION AREDS-2 ORAL) Take 1 tablet by mouth twice daily. citalopram (CELEXA) 40 mg tablet Take 1 tablet by mouth once daily. No current facility-administered medications for this visit. Objective BP 130/60 (BP Site: Right Arm, BP Position: Sitting) Pulse 60 Ht 5' 2 (1.575 m) Wt 135 lb (61.2 kg) SpO2 98% BMI 24.69 kg/m? Physical Exam GENERAL: NAD, alert and oriented SKIN: unremarkable, no rash or skin lesions. HEAD: normocephalic EYES: PERRLA, EOMI, conjunctiva clear EARS: external ears normal, canals clear, TM's normal. NOSE/SINUSES: Nares normal. Septum midline. OROPHARYNX: lips, mucosa, and tongue normal, good dentition. No oral lesions noted. NECK: Supple, no lymphadenopathy, normal thyroid, no carotid bruits. LUNGS: Clear to auscultation bilaterally, no wheezes/rhonchi/rales. HEART: Regular rate and rhythm, no murmurs. No ectopy. EXTREMITIES: Normal, No deformities, No skin discoloration, No edema. NEURO: Awake, alert and oriented x3, cranial nerves II-XII grossly intact, normal gait, no involuntary motions Assessment AND Plan 1. Anxiety with depression (F41.8) - On citalopram 40 mg daily; reports some improvement in mood but continues to experience intermittent brain zaps. - Discussed option to change medication; patient prefers to continue current regimen and reassess at a later date. 2. Lumbar radiculopathy (M54.16) 3. Encounter for screening mammogram for malignant neoplasm of breast (Z12.31) - Mammogram performed yesterday. Portia Calhoun, DO Return in about 6 months (around 09/06/2025). Recording using [employer] software for draft documentation of the visit was discussed with the patient/authorized physician representative; all questions welcomed and answered. Patient/authorized physician representative agreed to proceed (more content not included)... Normal [facility] ARIAN SCREENING W TOMOon 03-07 ARIAN SCREENING W TUCKER * * *Final Report* * * DATE OF EXAM: Mar 07 2025 1:46PM [id number] - ARIAN SCREENING W TUCKER / PROCEDURE REASON: Encounter for screening mammogram for breast cancer * * * * Physician Interpretation * * * * RESULT: [facility] [address] [place] [address] #[id number] - ARIAN SCREENING W TUCKER HISTORY: 74 year-old patient presents for screening. Patient is asymptomatic in both breasts. Patient states no personal history of breast cancer. COMPARISON STUDIES: This is a baseline study. MAMMOGRAM TECHNIQUE: The study was acquired using full field digital technology and interpreted from soft copy. Digital Breast Tomosynthesis (DBT) images were obtained and used to assist in the interpretation of this examination. MAMMOGRAM FINDINGS: There are scattered areas of fibroglandular density. No suspicious masses, calcifications or other abnormalities are seen in either breast. IMPRESSION: There is no mammographic evidence of malignancy in either breast. Routine screening mammogram is recommended. Annual mammogram will be due in 1 year. BI-RADS Category 1: Negative RISK: Based on the Tyrer-Cuzick (TC) risk assessment model, this patient has a 1.3% lifetime risk of developing breast cancer, meaning they are at average risk for developing breast cancer. However, this is only an estimate based on available history provided on the patient's questionnaire. We encourage all patients to talk with their providers about these results, further recommendations for managing breast health, and appropriate supplemental screening options if the patient has dense breast tissue. Interpreting Radiologist: Jose Sanchez M.D. Electronically signed on: 03/12/2025 Fiberglass Model Maker: AMARA Transcribe Date/Time: Mar 07 2025 1:26P Dictated by: JOSE SANCHEZ MD This examination was interpreted and the report reviewed and electronically signed by: JOSE SANCHEZ MD on Mar 12 2025 10:31AM EST [id number] Normal [facility] HbA1c (Bld)on 02-24-2025 Average glucose Estimated from glycated hemoglobin (Bld) [Mass/Vol] 105 mg/dL Normal [facility] Comment on above: Order Comment: Speci men Type: BLOOD SPECIMENOrdering Facility: [facility] Address: [address] [place], [place] [address] Result Comment: eAG: (Estimated average glucose) is a calculated value from HgbA1c and is physician representative of the average blood glucose level in the last 2-3 month period. Performed By: #### 5 5454-3 ####[facility] LABCLIA [id number] [place] [address] [place] HbA1c (Bld) [Mass fraction] 5.3 % Normal 4.3-5.6 [facility] Comment on above: Order Comment: Speci men Type: BLOOD SPECIMENOrdering Facility: [facility] Address: [address] [place] [address] Result Comment: Amer ican Diabetes Association guidelines indicate that patients with HgbA1c in the range 5.7-6.4% are at increased risk for development of diabetes, and intervention by lifestyle modification may be beneficial. HgbA1c greater or equal to 6.5% is considered diagnostic of diabetes. Performed By: #### 5 5454-3 ####[facility] LABCLIA [id number] [place] [address] [place] Magnesium SerPl-mCncon 02-24 Magnesium [Mass/Vol] 1.9 mg/dL Normal 1.7-2.3 [facility] Comment on above: Order Comment: Speci men Type: BLOOD SPECIMENOrdering Facility: [facility] Address: [address] [place] [address] Performed By: #### 1 9123-9 ####[facility] [id number] [place] [address] [place] TSH W/REFLEX FT4on 5 TSH Qn 1.980 m[IU]/L Normal 0.270-4.200 [facility] Comment on above: Order Comment: Speci men Type: BLOOD SPECIMENOrdering Facility: [facility] Address: [address] [place] [address] Performed By: #### 2 132-9, TSHRF ####[facility] LABIA [id number] [place] [id number] [place] Vit [facility] Cobalamin (Vitamin B12) [Mass/Vol] 339 pg/mL Normal 232-1245 [facility] Comment on above: Order Comment: Speci men Type: BLOOD SPECIMENOrdering Facility: [facility] Address: [address] [place] [address] Performed By: #### 2 132-9, TSHRF ####[facility] [id number] [place] [id number] [place] CNOVon 02-22-2025 CN[facility] Office Visit (NEURMM ) BRENT MOSQUEDA ([id number]) 1950 F Date Time Provider Department 02/22/25 8:00 AM CAITLIN SANTIAGO NEURMM During your visit today, we recorded the following information about you: Pulse Respiration Blood pressure Weight 64/minute 16/minute 124/75 62.4 kg Caitlin Santiago MD 02/22/2025 5:13 PM Signed 02/16/2025 Sleep Apnea Probability Snores loudly: No Tired, fatigued or sleepy in daytime: Yes Stops breathing or choking/gasping during sleep: No High blood pressure: No Sleep Apnea Probability Score: 28 (Sleep study not recommended) Neurological [place] February 22, 2025 Consultation My final recommendations will be communicated back to the requesting physician by way of shared medical record or letter via US mail. Referring physician:Stephen Aguila Main Level [facility] [id number] Patient presents with: Consult: Abnormality of gait Accompanied by Self. Referred by Stephen Aguila Main [facility] [id number]. HISTORY AND PHYSICAL Brent is a 74-year-old rpcxu-mjhv-eooopass female with a history of cervical and lumbar spine surgery, chronic back and neck pain, and right ankle arthrodesis, presenting for evaluation of chronic imbalance and falls. Brent reports a history of chronic imbalance and unsteady gait for well over a year. She describes difficulty walking in a straight line and frequently needing to push herself off dahl when walking down hallways. She characterizes her gait as walking like a drunk. She also reports intermittent dizziness, which she describes as a swinging sensation rather than true vertigo. The dizziness is not constant and is not associated with any hearing problems, tinnitus, or ear pain. She does not experience dizziness when lying in bed or turning over. She reports frequent falls, sometimes due to imbalance and sometimes due to mechanical factors such as tripping over objects or being knocked over by her dog. The most recent fall due to imbalance occurred a couple of weeks ago. She reports difficulty getting up after falls, though she notes that she is now able to get up off the ground more easily than before. She expresses fear of falling in public and describes her symptoms as very unsettling. She reports that her leg strength is improving, but her walking continues to worsen. Her medical history is significant for chronic back and neck pain, as well as right ankle arthrodesis performed in 2001 following a compound fracture from a horse-riding accident. She also reports numbness in her left foot following surgery approximately 2 years ago. She has a history of hypertension and is currently taking metoprolol 25 mg daily at noon. She previously took Lipitor but discontinued it due to side effects. She also takes Lyrica, which she currently takes in the morning. She has not undergone any nerve testing on her legs and has not participated in vestibular therapy. She has completed physical therapy a couple of times, most recently after her left foot surgery, but has not participated in therapy specifically for balance. She does not use any assistive devices for walking, such as a cane or walker, though she has considered using a walking stick. She reports drinking Pepsi Zero regularly and does not drink much water. She denies any personal or family history of diabetes or neurological disorders. 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 194 tablet 0 metoprolol succinate ER (TOPROL XL) 25 mg 24 hr tablet TAKE ONE TABLET BY MOUTH EVERY AFTERNOON 90 tablet 1 ibuprofen (MOTRIN) 600 mg tablet pregabalin (LYRICA) 75 mg capsule Take 75 mg by mouth two times a day. vit C/E/Zn/coppr/lutein/ada jennifer (PRESERVISION AREDS-2 ORAL) Take 1 tablet by mouth twice daily. ALIGN, B.LONGUM, 10 million cell cap TAKE ONE CAPSULE BY MOUTH EVERY DAY (Patient not taking: Reported on 01/28/2025) 42 capsule 1 amoxicillin (AMOXIL) 500 mg capsule (Patient not taking: Reported on 01/28/2025) Chlorhexidine Gluconate (PERIDEX) 0.12 % solution (Patient not taking: Reported on 02/22/2025) atorvastatin (LIPITOR) 20 mg tablet Take 1 tablet by mouth once daily. 90 tablet 3 Bifidobacterium (more content not included)... Normal [facility] CNOVon 02-18-2025 CNOV Office Visit (AGSPIN E3) BRENT MOSQUEDA ([id number]) 1950 F Date Time Provider Department 02/18/25 1:00 PM WILLAM MCHUGH AGSPINE3 During your visit today, we recorded the following information about you: Willam Mchugh DC 02/18/2025 1:54 PM Signed Chiropractor Progress/Procedure Note Brent Mosqueda is a 74 year old female who presents for Chiropractic follow up for Low Back Pain VN 10/22 ACU Have you noticed any improvement since your last visit? Yes patient states she has had little to no pain at all following visit. Have you done any home exercises that Dr. Mchugh gave you? No What is your response to the home exercises? N/A What aggravates your pain? ADL's What makes your pain better? Chiro care Current pain level? 2/10 How low has your pain level been on the pain scale since your last visit? 0/10 How high has your pain level been on the pain scale since your last visit? 7/10. Since your last visit with Dr. Mchugh have you had any Images or injections? MRI on 02/08 REVIEW OF SYSTEMS: The patient reports numbness or tingling. PHYSICAL EXAM: The patient is alert and oriented in no acute distress. There is mild to moderate hypertonicity through the lumbar paraspinal muscles and gluteal muscles. Range of motion: improved Pain on flexion and extension. Motor Strength: normal Neurovascular intact. Orthopedic testing: NA. Spinal segmental dysfunction: na The patient is alert and oriented in no acute distress. I have confirmed and edited as necessary the HPI and ROS obtained by others. IMPRESSION AND PLAN: (M54.50, G89.29) Chronic bilateral low back pain without sciatica (primary encounter diagnosis) No orders found for this visit on 02/18/25. Treatments: Acupuncture: 38 minutes, lumbar spine, needles re-inserted every 15 minutes. MASSAGE CHAIR Time in: 12:47 Time out: 1:25 Plan/Goal: Continue care until goal of less severe pain overall. Return: 2 times, month Patient responded well, instructed to call with problems or concerns, responded well to all treatments. I personally performed treatments/procedures listed. Dr. Willam Mchugh, TERI Referring Provider: ZI STANTON [[id number]] Allergies As of Date: 02/18/2025 (No Known Allergies) Date Reviewed: 02/18/2025 Reviewed by: Puja Cornejo LMT - Fully Assessed Reason for Visit: Low Back Pain [126] Primary Visit Diagnosis:Chronic bilateral low back pain without sciatica [M54.50, G89.29] Order(s):ACUPUNCT W/O STIMUL 15 MIN [[id number]] Order #: [id number] ACUPUNCT W/O STIMUL ADDL 15M [[id number]] Order #: [id number]: 2 Prescriptions as of 02/18/2025 - hydrOXYzine HCl (ATARAX) 25 mg tablet TAKE ONE TABLET BY MOUTH THREE TIMES A DAY NEEDED - citalopram (CELEXA) 20 mg tablet Take 1 tablet by mouth once daily for 14 days, THEN 2 tablets once daily. - metoprolol succinate ER (TOPROL XL) 25 mg 24 hr tablet TAKE ONE TABLET BY MOUTH EVERY AFTERNOON - ALIGN, B.LONGUM, 10 million cell cap TAKE ONE CAPSULE BY MOUTH EVERY DAY - amoxicillin (AMOXIL) 500 mg capsule - Chlorhexidine Gluconate (PERIDEX) 0.12 % solution - ibuprofen (MOTRIN) 600 mg tablet - pregabalin (LYRICA) 75 mg capsule Take 75 mg by mouth two times a day. - atorvastatin (LIPITOR) 20 mg tablet Take 1 tablet by mouth once daily. - Bifidobacterium Infantis (TYSHAWN, B.INFANTIS,) 4 mg cap Take 1 capsule by mouth once daily. - ascorbic acid, vitamin C, (VITAMIN C) 500 mg tablet Take 1 tablet by mouth once daily. - vit C/E/Zn/coppr/lutein/ada jennifer (PRESERVISION AREDS-2 ORAL) Take 1 tablet by mouth twice daily. Problem List As Of Date 02/18/2025 Noted Resolved MERLYN (generalized anxiety disorder) [F41.1] 07/11/2021 07/15/2023 Contusion of coccyx [S30.0XXA] 07/11/2021 07/15/2023 Chronic left shoulder pain [M25.512, G89.29] 07/11/2021 Foot pain, right [M79.671] 08/28/2022 07/15/2023 Palpitations [R00.2] 12/05/2022 VELÁZQUEZ (dyspnea on exertion) [R06.09] 01/17/2023 PVC (premature ventricular contraction) [I49.3] 01/17/2023 Postoperative pain [G89.18] 02/14/2023 07/15/2023 Anxiety with depression [F41.8] 05/20/2023 Fibromyalgia [M79.7] 05/20/2023 Elevated liver enzymes [R74.8] 05/20/2023 Chronic joint pain [M25.50, G89.29] 07/27/2023 Spinal stenosis of lumbar region with neurogeni*07/27/2023 Generalized osteoarthrosis [M15.9] 08/04/2023 Recurrent falls while walking [R29.6] 08/04/2023 Lumbar radiculopathy [M54.16] 08/24/2023 Preop examination [Z01.818] 11/07/2023 S/P lumbar fusion [Z98.1] 11/20/2023 Trigeminal neuralgia [G50.0] 06/20/2024 Elevated LFTs [R79.89] 06/28/2024 Hiatal hernia [K44.9] 07/05/2024 Chronic gastritis without bleeding [K29.50] 07/05/2024 Generalized arthritis [M19.90] 01/30/2025 Arthritis of both hands [M19.041, M19.042] 01/30/2025 Encounter Status:Closed by WILLAM MCHUGH (more content not included)... [facility] BR[facility] MOSQUEDA ([id number]) 1950 F Date Time Provider Department 02/10/25 DEVORAH SALAZAR GSTNOR During your visit today, we recorded the following information about you: Linette Rizo MA 02/10/2025 11:52 AM Signed PA submitted in Cover my meds for Align. Waiting for response from insurance. STEVO Price Erin M, MA 02/10/2025 2:56 PM Signed Align was denied by insurance. Pt notified Linette Rizo MA Allergies As of Date: 02/10/2025 (No Known Allergies) Date Reviewed: 02/04/2025 Reviewed by: Alejo Ibarra LMT - Fully Assessed Reason for Visit: Medication Authorization [1249] Prescriptions as of 02/10/2025 - hydrOXYzine HCl (ATARAX) 25 mg tablet TAKE ONE TABLET BY MOUTH THREE TIMES A DAY NEEDED - citalopram (CELEXA) 20 mg tablet Take 1 tablet by mouth once daily for 14 days, THEN 2 tablets once daily. - metoprolol succinate ER (TOPROL XL) 25 mg 24 hr tablet TAKE ONE TABLET BY MOUTH EVERY AFTERNOON - ALIGN, B.LONGUM, 10 million cell cap TAKE ONE CAPSULE BY MOUTH EVERY DAY - amoxicillin (AMOXIL) 500 mg capsule - Chlorhexidine Gluconate (PERIDEX) 0.12 % solution - ibuprofen (MOTRIN) 600 mg tablet - pregabalin (LYRICA) 75 mg capsule Take 75 mg by mouth two times a day. - atorvastatin (LIPITOR) 20 mg tablet Take 1 tablet by mouth once daily. - Bifidobacterium Infantis (ALIGN, B.INFANTIS,) 4 mg cap Take 1 capsule by mouth once daily. - ascorbic acid, vitamin C, (VITAMIN C) 500 mg tablet Take 1 tablet by mouth once daily. - vit C/E/Zn/coppr/lutein/ada jennifer (PRESERVISION AREDS-2 ORAL) Take 1 tablet by mouth twice daily. Problem List As Of Date 02/10/2025 Noted Resolved MERLYN (generalized anxiety disorder) [F41.1] 07/11/2021 07/15/2023 Contusion of coccyx [S30.0XXA] 07/11/2021 07/15/2023 Chronic left shoulder pain [M25.512, G89.29] 07/11/2021 Foot pain, right [M79.671] 08/28/2022 07/15/2023 Palpitations [R00.2] 12/05/2022 VELÁZQUEZ (dyspnea on exertion) [R06.09] 01/17/2023 PVC (premature ventricular contraction) [I49.3] 01/17/2023 Postoperative pain [G89.18] 02/14/2023 07/15/2023 Anxiety with depression [F41.8] 05/20/2023 Fibromyalgia [M79.7] 05/20/2023 Elevated liver enzymes [R74.8] 05/20/2023 Chronic joint pain [M25.50, G89.29] 07/27/2023 Spinal stenosis of lumbar region with neurogeni*07/27/2023 Generalized osteoarthrosis [M15.9] 08/04/2023 Recurrent falls while walking [R29.6] 08/04/2023 Lumbar radiculopathy [M54.16] 08/24/2023 Preop examination [Z01.818] 11/07/2023 S/P lumbar fusion [Z98.1] 11/20/2023 Trigeminal neuralgia [G50.0] 06/20/2024 Elevated LFTs [R79.89] 06/28/2024 Hiatal hernia [K44.9] 07/05/2024 Chronic gastritis without bleeding [K29.50] 07/05/2024 Generalized arthritis [M19.90] 01/30/2025 Arthritis of both hands [M19.041, M19.042] 01/30/2025 Encounter Status:Closed by LINETTE RIZO on 02/10/25 Normal [facility] MR Thoracic spine WO contras ton 02-08-2025 IMPRESSION: Preserved vertebral heights. No suspicious marrow signal intensity. No high-grade spinal canal or foraminal stenosis. Anatomic Thoracic/Lumbar Variant: None. L4-5 is considered the level of the iliac crest and assume there are 5 lumbar-type vertebrae. Fiberglass Model Maker: DESTIN Transcribe Date/Time: Feb 08 2025 6:32P Dictated by : ANGELES BARONE MD This examination was interpreted and the report reviewed and electronically signed by: ANGELES BARONE MD on Feb 08 2025 6:47PM [facility] DIVISION OF RADIOLOGY * * *Final Report* * * DATE OF EXAM: Feb 08 2025 4:00PM [facility] 0325 - MRI THORACIC SPINE WO IVCON / PROCEDURE REASON: Gait abnormality * * * * Physician Interpretation * * * * EXAMINATION: MRI THORACIC SPINE WO IVCON CLINICAL HISTORY: Gait abnormality TECHNIQUE: Routine thoracic spine MR protocol. MQ: [id number] COMPARISON: None. RESULT: Counting reference: Craniocervical and lumbosacral junctions. For the purposes of this report, L4-5 is considered the level of the iliac crest and assume there are 5 lumbar-type vertebrae. Anatomic variant: None. Localizer images: Degenerative changes of bilateral glenohumeral joints. Multilevel degenerative changes of the cervical spine. Refer to prior dedicated MRI cervical spine 12/12/2024 redemonstrated evaluation. Degenerative changes of cervical spine. Postsurgical changes and susceptibility artifacts from posterior fusion hardware at L4-L5. Refer to recent dedicated MRI and CT lumbar spine 08/31/2024 for a more detailed evaluation. Parapelvic and cortical T2 signal hyperintensities likely secondary to cysts. These findings could be further with dedicated nonemergent ultrasound studies if clinically appropriate. Alignment: Dextrocurvature of thoracolumbar spine centered at T10-T11. Mild straightening of the normal thoracic kyphosis. Marginal anterolisthesis of T2 over T3. Otherwise, no significant listhesis. Cord: The visualized cord is within normal limits of signal intensity and morphology. Bone marrow signal/fracture: Slight T1/T2 heterogeneous marrow signal intensity likely secondary to decreased osseous mineralization and fatty marrow conversion. T1/T2/STIR hyperintense lesion involving T11 vertebral body (such as sagittal image 10). Corresponding to the trabeculated lesion on prior CT lumbar spine 08/31/2024. No aggressive MR imaging features. 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 In case of high clinical concern continued follow-up with MRI and/or CT to spine could be obtained for reassurance of the stability. T1/T2 hyperintense STIR isointense lesion involving T6 vertebral body (such as sagittal image 10) consistent with that typical intraosseous hemangioma. No evidence of pathologic marrow infiltration. No evidence of prior fracture. Mild endplate marrow edema at T9-T10 on the left, considered degenerative and likely secondary to sclerotic curvature Thoracic paraspinal soft tissues: The paraspinal soft tissues are within normal limits. Canal and foramina: Multilevel mild degenerative changes. No high-grade spinal canal or foraminal stenosis. Multilevel up to mild to moderate foraminal stenosis. DIVISION OF RADIOLOGY Provider, Gilberto Coto [facility] - 02/08/2025 * * *Final Report* * * DATE OF EXAM: Feb 08 2025 4:00PM [facility] 0325 - MRI THORACIC SPINE WO IVCON / PROCEDURE REASON: Gait abnormality * * * * Physician Interpretation * * * * EXAMINATION: MRI THORACIC SPINE WO IVCON CLINICAL HISTORY: Gait abnormality TECHNIQUE: Routine thoracic spine MR protocol. MQ: [id number]_3 COMPARISON: None. RESULT: Counting reference: Craniocervical and lumbosacral junctions. For the purposes of this report, L4-5 is considered the level of the iliac crest and assume there are 5 lumbar-type vertebrae. Anatomic variant: None. Localizer images: Degenerative changes of bilateral glenohumeral joints. Multilevel degenerative changes of the cervical spine. Refer to prior dedicated MRI cervical spine 12/12/2024 redemonstrated evaluation. Degenerative changes of cervical spine. Postsurgical changes and susceptibility artifacts from posterior fusion hardware at L4-L5. Refer to recent dedicated MRI and CT lumbar spine 08/31/2024 for a more detailed evaluation. Parapelvic and cortical T2 signal hyperintensities likely secondary to cysts. These findings could be further with dedicated nonemergent ultrasound studies if clinically appropriate. Alignment: Dextrocurvature of thoracolumbar spine centered at T10-T11. Mild straightening of the normal thoracic kyphosis. Marginal anterolisthesis of T2 over T3. Otherwise, no significant listhesis. Cord: The visualized cord is within normal limits of signal intensity and morphology. Bone marrow signal/fracture: Slight T1/T2 heterogeneous marrow signal intensity likely secondary to decreased osseous mineralization and fatty marrow conversion. T1/T2/STIR hyperintense lesion involving T11 vertebral body (such as sagittal image 10). Corresponding to the trabeculated lesion on prior CT lumbar spine 08/31/2024. No aggressive MR imaging features. 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 In case of high clinical concern continued follow-up with MRI and/or CT to spine could be obtained for reassurance of the stability. T1/T2 hyperintense STIR isointense lesion involving T6 vertebral body (such as sagittal image 10) consistent with that typical intraosseous hemangioma. No evidence of pathologic marrow infiltration. No evidence of prior fracture. Mild endplate marrow edema at T9-T10 on the left, considered degenerative and likely secondary to sclerotic curvature Thoracic paraspinal soft tissues: The paraspinal soft tissues are within normal limits. Canal and foramina: Multilevel mild degenerative changes. No high-grade spinal canal or foraminal stenosis. Multilevel up to mild to moderate foraminal stenosis. IMPRESSION IMPRESSION: Preserved vertebral heights. No suspicious marrow signal intensity. No high-grade spinal canal or foraminal stenosis. Anatomic Thoracic/Lumbar Variant: None. L4-5 is considered the level of the iliac crest and assume there are 5 lumbar-type vertebrae. Fiberglass Model Maker: DESTIN Transcribe Date/Time: Feb 08 2025 6:32P Dictated by : ANGELES BARONE MD This examination was interpreted and the report reviewed and electronically signed by: ANGELES BARONE MD on Feb 08 2025 6:47PM EST [facility] Radiology Study observation (narrative) [facility] MR Thoracic spine WO contras tOrdered By: [facility] Provider on 02-08-2025 [facility] MRI THORACIC SPINE WO IVCONo n 02-08-2025 MRI THORACIC SPINE WO IVCON * * *Final Report* * * DATE OF EXAM: Feb 08 2025 4:00PM [facility] 0325 - MRI THORACIC SPINE WO IVCON / PROCEDURE REASON: Gait abnormality * * * * Physician Interpretation * * * * EXAMINATION: MRI THORACIC SPINE WO IVCON CLINICAL HISTORY: Gait abnormality TECHNIQUE: Routine thoracic spine MR protocol. MQ: [id number]_3 COMPARISON: None. RESULT: Counting reference: Craniocervical and lumbosacral junctions. For the purposes of this report, L4-5 is considered the level of the iliac crest and assume there are 5 lumbar-type vertebrae. Anatomic variant: None. Localizer images: Degenerative changes of bilateral glenohumeral joints. Multilevel degenerative changes of the cervical spine. Refer to prior dedicated MRI cervical spine 12/12/2024 redemonstrated evaluation. Degenerative changes of cervical spine. Postsurgical changes and susceptibility artifacts from posterior fusion hardware at L4-L5. Refer to recent dedicated MRI and CT lumbar spine 08/31/2024 for a more detailed evaluation. Parapelvic and cortical T2 signal hyperintensities likely secondary to cysts. These findings could be further with dedicated nonemergent ultrasound studies if clinically appropriate. Alignment: Dextrocurvature of thoracolumbar spine centered at T10-T11. Mild straightening of the normal thoracic kyphosis. Marginal anterolisthesis of T2 over T3. Otherwise, no significant listhesis. Cord: The visualized cord is within normal limits of signal intensity and morphology. Bone marrow signal/fracture: Slight T1/T2 heterogeneous marrow signal intensity likely secondary to decreased osseous mineralization and fatty marrow conversion. T1/T2/STIR hyperintense lesion involving T11 vertebral body (such as sagittal image 10). Corresponding to the trabeculated lesion on prior CT lumbar spine 08/31/2024. No aggressive MR imaging features. 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 In case of high clinical concern continued follow-up with MRI and/or CT to spine could be obtained for reassurance of the stability. T1/T2 hyperintense STIR isointense lesion involving T6 vertebral body (such as sagittal image 10) consistent with that typical intraosseous hemangioma. No evidence of pathologic marrow infiltration. No evidence of prior fracture. Mild endplate marrow edema at T9-T10 on the left, considered degenerative and likely secondary to sclerotic curvature Thoracic paraspinal soft tissues: The paraspinal soft tissues are within normal limits. Canal and foramina: Multilevel mild degenerative changes. No high-grade spinal canal or foraminal stenosis. Multilevel up to mild to moderate foraminal stenosis. IMPRESSION: Preserved vertebral heights. No suspicious marrow signal intensity. No high-grade spinal canal or foraminal stenosis. Anatomic Thoracic/Lumbar Variant: None. L4-5 is considered the level of the iliac crest and assume there are 5 lumbar-type vertebrae. Fiberglass Model Maker: PSCB Transcribe Date/Time: Feb 08 2025 6:32P Dictated by : ANGELES BARONE MD This examination was interpreted and the report reviewed and electronically signed by: ANGELES BARONE MD on Feb 08 2025 6:47PM EST [id number] Normal [facility] CNOVon 02-04-2025 CNOV Office Visit (AGSPIN E3) BRENT MOSQUEDA ([id number]) 1950 F Date Time Provider Department 02/04/25 1:00 PM WILLAM MCHUGH AGSPINE3 During your visit today, we recorded the following information about you: Willam Mchugh DC 02/04/2025 1:33 PM Signed Chiropractor Progress/Procedure Note Brent Mosqueda is a 74 year old female who presents for Chiropractic follow up for Low Back Pain AO 09/22 acu Have you noticed any improvement since your last visit? Less pain for 1-2 weeks Have you done any home exercises that Dr. Mchugh gave you? None given What is your response to the home exercises? N/A What aggravates your pain? Non-specific ADLs What makes your pain better? Chiro care Current pain level? 0/10 How low has your pain level been on the pain scale since your last visit? 0/10 How high has your pain level been on the pain scale since your last visit? 12/02. Since your last visit with Dr. Mchugh have you had any Images or injections? No REVIEW OF SYSTEMS: The patient reports numbness or tingling. PHYSICAL EXAM: The patient is alert and oriented in no acute distress. There is mild to moderate hypertonicity through the lumbar paraspinal muscles and gluteal muscles. Range of motion: improved Pain on flexion and extension. Motor Strength: normal Neurovascular intact. Orthopedic testing: NA. Spinal segmental dysfunction: na The patient is alert and oriented in no acute distress. I have confirmed and edited as necessary the HPI and ROS obtained by others. IMPRESSION AND PLAN: (M54.50, G89.29) Chronic bilateral low back pain without sciatica (primary encounter diagnosis) No orders found for this visit on 02/04/25. Treatments: Acupuncture: 38 minutes, lumbar spine, needles re-inserted every 15 minutes. MASSAGE CHAIR Time in: 12:48 Time out: 1:30 Plan/Goal: Continue care until goal of standing/walking with less pain, less severe pain overall, and less pain in daily activity. Return: 2 times, month Patient responded well, instructed to call with problems or concerns, responded well to all treatments. I personally performed treatments/procedures listed. Dr. Willam Mchugh DC Referring Provider: ZI STANTON [[id number]] Allergies As of Date: 02/04/2025 (No Known Allergies) Date Reviewed: 02/04/2025 Reviewed by: Alejo Ibarra LMT - Fully Assessed Reason for Visit: Low Back Pain [126] Primary Visit Diagnosis:Chronic bilateral low back pain without sciatica [M54.50, G89.29] Order(s):ACUPUNCT W/O STIMUL ADDL 15M [25448XPM] Order #: [id number]: 2 ACUPUNCT W/O STIMUL 15 MIN [[id number]] Order #: [id number] Prescriptions as of 02/04/2025 - hydrOXYzine HCl (ATARAX) 25 mg tablet TAKE ONE TABLET BY MOUTH THREE TIMES A DAY NEEDED - citalopram (CELEXA) 20 mg tablet Take 1 tablet by mouth once daily for 14 days, THEN 2 tablets once daily. - metoprolol succinate ER (TOPROL XL) 25 mg 24 hr tablet TAKE ONE TABLET BY MOUTH EVERY AFTERNOON - ALIGN, B.LONGUM, 10 million cell cap TAKE ONE CAPSULE BY MOUTH EVERY DAY - amoxicillin (AMOXIL) 500 mg capsule - Chlorhexidine Gluconate (PERIDEX) 0.12 % solution - ibuprofen (MOTRIN) 600 mg tablet - pregabalin (LYRICA) 75 mg capsule Take 75 mg by mouth two times a day. - atorvastatin (LIPITOR) 20 mg tablet Take 1 tablet by mouth once daily. - Bifidobacterium Infantis (ALIGN, B.INFANTIS,) 4 mg cap Take 1 capsule by mouth once daily. - ascorbic acid, vitamin C, (VITAMIN C) 500 mg tablet Take 1 tablet by mouth once daily. - vit C/E/Zn/coppr/lutein/ada jennifer (PRESERVISION AREDS-2 ORAL) Take 1 tablet by mouth twice daily. Problem List As Of Date 02/04/2025 Noted Resolved MERLYN (generalized anxiety disorder) [F41.1] 07/11/2021 07/15/2023 Contusion of coccyx [S30.0XXA] 07/11/2021 07/15/2023 Chronic left shoulder pain [M25.512, G89.29] 07/11/2021 Foot pain, right [M79.671] 08/28/2022 07/15/2023 Palpitations [R00.2] 12/05/2022 VELÁZQUEZ (dyspnea on exertion) [R06.09] 01/17/2023 PVC (premature ventricular contraction) [I49.3] 01/17/2023 Postoperative pain [G89.18] 02/14/2023 07/15/2023 Anxiety with depression [F41.8] 05/20/2023 Fibromyalgia [M79.7] 05/20/2023 Elevated liver enzymes [R74.8] 05/20/2023 Chronic joint pain [M25.50, G89.29] 07/27/2023 Spinal stenosis of lumbar region with neurogeni*07/27/2023 Generalized osteoarthrosis [M15.9] 08/04/2023 Recurrent falls while walking [R29.6] 08/04/2023 Lumbar radiculopathy [M54.16] 08/24/2023 Preop examination [Z01.818] 11/07/2023 S/P lumbar fusion [Z98.1] 11/20/2023 Trigeminal neuralgia [G50.0] 06/20/2024 Elevated LFTs [R79.89] 06/28/2024 Hiatal hernia [K44.9] 07/05/2024 Chronic gastritis without bleeding [K29.50] 07/05/2024 Generalized arthritis [M19.90] 01/30/2025 Arthritis of both hands [M19.041, M19.042] 01/30/2025 Encounter Statu (more content not included)... Normal [facility] CNOVon 01-28-2025 CNOV Office Visit (AGOCMR ) BRENT MOSQUEDA ([id number]) 1950 F Date Time Provider Department 01/28/25 12:45 PM STEPHEN RIZO AGOHeriberto During your visit today, we recorded the following information about you: Pulse Respiration Blood pressure Weight 64/minute 16/minute 112/74 63.3 kg Stephen Rizo DO 01/28/2025 12:58 PM Signed Stephen Rizo DO [facility] Orthopedics - Orthopedic Spine Surgeon [address] [facility] [id number] [facility] [place] [address] Phone: [phone] FAX: [phone] SPINE SURGERY OUTPATIENT CONSULT SERVICE DATE: 01/28/2025 LAST OFFICE VISIT: 10/25/2024 DATE OF : 1950 REFERRING PROVIDER: No referring provider defined for this encounter. CHIEF COMPLAINT: Gait and balance, low back pain HISTORY OF PRESENT ILLNESS Brent Mosqueda is a 74 year old female presenting alone. She has a past medical history of fibromyalgia, arthritis, palpitations, lumbar radiculopathy and hyperlipidemia. She was last evaluated in office on 08/10/2024 for follow-up. She reported worsening pain since participating in physical therapy. She noted pain started in her bilateral sides of low back with radiation to entire bilateral lower extremities, left side worse than right. She stated she felt her left leg was giving out when ambulating. Endorsed bilateral lower extremity weakness. She reported falling down two steps due to her left leg giving out. She stated she was having difficulty sleeping at night due to her leg pain. She noted the worst pain was in her low back. Denied any paresthesia. Denied loss of bowel or bladder function. Radiographic imaging of the lumbar spine displayed an L4-5 posterolateral fusion with hardware in stable position. It was recommended to obtain an MRI of the lumbar spine with and without contrast, in addition to a CT scan of the lumbar spine. It was recommended to follow-up once completed. At her last visit on 09/07/2024 she reported that her symptoms were the same. Continued to have bad low back pain. Stated the back pain was only present when she was up standing and walking. Stated that when she was sitting it was completely gone. Stated that the pain she had in her legs was in her anterior thighs. Stated that she felt weak and she cannot get up off the floor. Stated that physical therapy made her pain significantly worse. I believe her low back pain could be caused by a pseudoarthrosis in her lumbar spine. Her stenosis in her lumbar spine was not severe enough that I am convinced that it was the cause of her symptoms. Recommend pain management consult for injection at L3-4 to see if did not improve her bilateral anterior thigh pain. She will follow-up in 2 weeks after this injection, prompting her visit today. Today she states that her balance continues to get worse. States that she had a recent cervical MRI which ruled out severe stenosis. States that her injections in her low back have greatly improved her low back pain. Denies any radicular symptoms. She presents for imaging review, evaluation and plan of care. PREVIOUS CONSERVATIVE TREATMENTS: Lyrica Flexeril Tylenol Physical Therapy- 06/04/2024, 06/23/2024, 06/25/2024, 06/29/2024 Sacroiliac Joint injection under fluoroscopic guidance BILATERAL SIDES - 01/06/2025 PREVIOUS SURGERY: SURGERY #1: L4-L5 posterior spinal fusion 11/20/2023 PREOPERATIVE SYMPTOMS: Severe bilateral leg pain Smoker: Denies Diabetic: Denies Anticoagulants / Antiplatelets: Denies Occupation: n/a PAST MEDICAL HISTORY Diagnosis Date Arthritis Bug bites scratched open mosquito bites Contact lens/glasses fitting right eye contact for reading Fibromyalgia PCP follows History of cardiovascular stress test normal Hyperlipemia Lumbar radiculopathy 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 Rizo REMOVAL GALLBLADDER FAMILY HISTORY Problem Relation Age of Onset other (multiple myeloma) Mother COPD Father No Known Problems Sister No Known Problems Brother No Known Problems Brother Colon Cancer No Family History SOCIAL HISTORY[1] ALLERGIES No Known Allergies MEDICATIONS: metoprolol succinate ER (TOPROL XL) 25 mg 24 hr tablet TAKE ONE TABLET BY MOUTH EVERY AFTERNOON CECILIA VILLAGRAN, 10 million cell cap TAKE ONE CAPSULE BY MOUTH EVERY DAY hydrOXYzine HCl (ATARAX) 25 mg tablet TAKE ONE TABLET BY MOUTH THREE TIMES A DAY NEEDED amoxicillin (AMOXIL) 500 mg (more content not included)... Normal [facility] CNOVon 01-25-2025 CNOV Office Visit (FPDOYL ) BRENT MOSQUEDA ([id number]) 1950 F Date Time Provider Department 01/25/25 2:15 PM PORTIA CALHOUN During your visit today, we recorded the following information about you: Temperature Pulse Blood pressure Weight 98.6 degrees 72/minute 102/58 64.4 kg Height 1.575 m Portia Calhoun, 01/30/2025 6:46 PM Signed Brent Mosqueda is a 74 year old female here for a Medicare wellness visit. Medicare Health Risk Assessment General Health Very good Exercise: Minutes/Day 0 min Exercise: Days/Week 0 days Alcohol: Daily Use Monthly or less Alcohol: Drinks/Day 1 or 2 Alcohol: 6 or more drinks Never Feel off balance Yes Concerns: Teeth/Dentures Yes Concerns: Sexual function No Troubled by feelings Anxious; Stressed; Lonely Frequency: Eating healthy diet Several days ADLs requiring help None of the above Safety precautions in home/vehicle No Smoke, vape, chews tobacco No Difficulty hearing No Difficulty seeing No Current Providers Specialists: I have reviewed specialist-related care of the patient in the medical record. Medical/Family history review Reviewed and updated problem list, medical/surgical/family /social history, medications, and allergies. Opioid use review Opioid Medications (last 90 days) No data to display Anxiety/Depression screening PHQ-2 Score: 4 (Higher risk for depression. PHQ-9 Recommended) Recommendation: no further intervention at this time Cognitive screening Mini Cog Score: 5 Cognitive screening reviewed and No further action needed (score 3-5). Functional Observation Was the patient's Timed Up AND Go test unsteady or >= 12 seconds? No Advance Care Planning Surrogate decision maker and/or advance care plan documented Measurements BP 102/58 (BP Site: Left Arm, BP Position: Sitting) Pulse 72 Temp 37 ?C (98.6 ?F) Ht 5' 2 (1.575 m) Wt 142 lb (64.4 kg) SpO2 97% BMI 25.97 kg/m? Vision Screening: Follows with optometry/ophthalmology Assessment/Plan Medicare annual wellness visit, subsequent (Z00.00) ASSESSMENT/PLAN: 1. Medicare annual wellness visit, subsequent - ICD9: V70.0, ICD10: Z00.00 (primary diagnosis) - Counseled on healthy diet and regular exercise - Follow up for annual exam in one year 2. Encounter for screening mammogram for breast cancer - ICD9: V76.12, ICD10: Z12.31 - ARIAN SCREENING W TUCKER 3. Change in bowel habits - ICD9: 787.99, ICD10: R19.4 - Chronic, Managed by Gastroenterology. 4. Generalized arthritis - ICD9: 716.90, ICD10: M19.90 5. Anxiety with depression - ICD9: 300.4, ICD10: F41.8 - Chronic. Not managed by medications. - Discontinue Cymbalta at this time and Start Citalopram. - Patient is not suicidal - increased stress at home causing anxiety. 6. Arthritis of both hands - ICD9: 716.94, ICD10: M19.041, M19.042 - managed by ibuprofen as needed 7. Overweight with body mass index (BMI) of 25 to 25.9 in adult - ICD9: 278.02, V85.21, ICD10: E66.3, Z68.25 Portia Calhoun DO Provider Attestation: I, Portia Calhoun DO personally performed the services described in this documentation. All medical record entries made by the scribe were at my direction and in my presence. I have reviewed the chart and discharge instructions (if applicable) and agree that the record reflects my personal performance and is accurate and complete. Electronically Signed: Portia Calhoun DO, January 25, 2025 2:37 PMScribe Attestation: The patient is seen and examined by Dr. Calhoun and the following reflects his/her service. Scribed by Alex Yu January 28, 2025 4:20 PM Portia Calhoun DO 01/25/2025 2:37 PM Signed Screening schedule The following prevention plan is recommended: DTaP,Tdap,Td Vaccine(1 - Tdap) Never done Mammogram Screening Never done Colorectal Cancer Screening due on 11/13/2023 Advance Directive Discussion Never done Medicare Advantage Annual Wellness Visit Never done WHAT YOU CAN DO TO PREVENT FALLS Many falls can be prevented. By making some changes, you can lower your chances of falling. Four things YOU can do to prevent falls for you* and your caregiver 1. Begin a regular exercise program Exercise is one of the most important ways to lower your chances of falling. It makes you stronger and helps you feel better. Exercises that improve balance and coordination (like Jose Luis Chi) are the most helpful. Lack of exercise leads to weakness and increases your chances of falling. Ask your doctor or health care provider about the best type of exercise program for you. 2. Have your health care provider review your medicines Have your doctor or pharmacist review all the medicines you take, even [id number] medicines. As you get older, the way medicines work in your body can change. Some medicines, or combinations of (more content not included)... Normal [facility] CNOVon 01-20-2025 CNOV Office Visit (AGSPIN E3) BRENT MOSQUEDA ([id number]) 1950 F Date Time Provider Department 01/20/25 1:30 PM WILLAM MCHUGH AGSPINE3 During your visit today, we recorded the following information about you: Willam Mchugh DC 01/20/2025 2:31 PM Signed Chiropractor Progress/Procedure Note Brent Mosqueda is a 74 year old female who presents for Chiropractic follow up for Low Back Pain [facility] 08/22 ACU Have you noticed any improvement since your last visit? Had less pain/symptoms for approximately 2 weeks after the previous visit. Have you done any home exercises that Dr. Mchugh gave you? None given per insurance What is your response to the home exercises? N/A What aggravates your pain? 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 0/10 How low has your pain level been on the pain scale since your last visit? 0/10 How high has your pain level been on the pain scale since your last visit? 11/02 Since your last visit with Dr. Mchugh have you had any Images or injections? Yes, images and injections (X-ray dated 01/12/25 and SI Joint injection dated 01/06/25) REVIEW OF SYSTEMS: The patient reports numbness and tingling. PHYSICAL EXAM: The patient is alert and oriented in no acute distress. There is moderate hypertonicity through the lumbar paraspinal muscles and gluteal muscles. Range of motion: improved Pain on flexion and extension. Motor Strength: normal Neurovascular intact. Orthopedic testing: NA. Spinal segmental dysfunction: n/a The patient is alert and oriented in no acute distress. I have confirmed and edited as necessary the HPI and ROS obtained by others. IMPRESSION AND PLAN: (M54.50, G89.29) Chronic bilateral low back pain without sciatica (primary encounter diagnosis) No orders found for this visit on 01/20/25. Treatments: SEATED: Acupuncture: 38 minutes, lumbar spine, needles re-inserted every 15 minutes. Time in: 1:30 Time out: 2:15 Plan/Goal: Continue care until goal of less severe pain overall. Home Exercise Program of None has been given per insurance. Return: 1 time, 4 weeks Patient responded well, instructed to call with problems or concerns, responded well to all treatments. I personally performed treatments/procedures listed. Dr. Willam Mchugh, [place] Referring Provider: ZI STANTON [[id number]] Allergies As of Date: 01/20/2025 (No Known Allergies) Date Reviewed: 01/20/2025 Reviewed by: Kan Flores LMT - Fully Assessed Reason for Visit: Low Back Pain [126] Primary Visit Diagnosis:Chronic bilateral low back pain without sciatica [M54.50, G89.29] Order(s):ACUPUNCT W/O STIMUL 15 MIN [[id number]] Order #: [id number] ACUPUNCT W/O STIMUL ADDL 15M [[id number]] Order #: [id number]: 2 Prescriptions as of 01/20/2025 - metoprolol succinate ER (TOPROL XL) 25 mg 24 hr tablet TAKE ONE TABLET BY MOUTH EVERY AFTERNOON - ALIGN, B.LONGUM, 10 million cell cap TAKE ONE CAPSULE BY MOUTH EVERY DAY - hydrOXYzine HCl (ATARAX) 25 mg tablet TAKE ONE TABLET BY MOUTH THREE TIMES A DAY NEEDED - amoxicillin (AMOXIL) 500 mg capsule - Chlorhexidine Gluconate (PERIDEX) 0.12 % solution - ibuprofen (MOTRIN) 600 mg tablet - pregabalin (LYRICA) 75 mg capsule Take 75 mg by mouth two times a day. - DULoxetine (CYMBALTA) 60 mg capsule TAKE ONE CAPSULE BY MOUTH EVERY DAY - atorvastatin (LIPITOR) 20 mg tablet Take 1 tablet by mouth once daily. - Bifidobacterium Infantis (ALIGN, B.INFANTIS,) 4 mg cap Take 1 capsule by mouth once daily. - ascorbic acid, vitamin C, (VITAMIN C) 500 mg tablet Take 1 tablet by mouth once daily. - vit C/E/Zn/coppr/lutein/ada jennifer (PRESERVISION AREDS-2 ORAL) Take 1 tablet by mouth twice daily. Problem List As Of Date 01/20/2025 Noted Resolved MERLYN (generalized anxiety disorder) [F41.1] 07/11/2021 07/15/2023 Contusion of coccyx [S30.0XXA] 07/11/2021 07/15/2023 Chronic left shoulder pain [M25.512, G89.29] 07/11/2021 Foot pain, right [M79.671] 08/28/2022 07/15/2023 Palpitations [R00.2] 12/05/2022 VELÁZQUEZ (dyspnea on exertion) [R06.09] 01/17/2023 PVC (premature ventricular contraction) [I49.3] 01/17/2023 Postoperative pain [G89.18] 02/14/2023 07/15/2023 Anxiety with depression [F41.8] 05/20/2023 Fibromyalgia [M79.7] 05/20/2023 Elevated liver enzymes [R74.8] 05/20/2023 Chronic joint pain [M25.50, G89.29] 07/27/2023 Spinal stenosis of lumbar region with neurogeni*07/27/2023 Generalized osteoarthrosis [M15.9] 08/04/2023 Recurrent falls while walking [R29.6] 08/04/2023 Lumbar radiculopathy [M54.16] 08/24/2023 Preop examination [Z01.818] 11/07/2023 S/P lumbar fusion [Z98.1] 11/20/2023 Trigeminal neuralgia [G50.0] 06/20/2024 Elevated LFTs [R79.89] 06/28/2024 Hiatal hernia [K44.9] 07/05/2024 Chronic gastritis without bleeding [K29.50] 07/05/2024 En (more content not included)... Normal [facility] XR CERVICAL 2V FLEX/EXTon XR CERVICAL 2V FLEX/EXT * * *Final Report* * * DATE OF EXAM: Jan 12 2025 1:55PM [id number] - XR CERVICAL 2V FLEX/EXT / PROCEDURE REASON: multiple diagnoses * * * * Physician Interpretation * * * * PROCEDURE: Cervical spine INDICATION: Degenerative disc disease, cervical Spinal stenosis of cervical region Impairment of balance .PT STATES ADDITIONAL IMAGING FOR DDD TECHNIQUE: XR CERVICAL 2V FLEX/EXT COMPARISON: 12/13/2024 FINDINGS: Moderate C5-6 and C6-7 degenerative disc disease. Mild L5 degenerative disc disease. Mild C5-C6 retrolisthesis. This is greater with extension and reduces with flexion. Lower facet arthrosis. Prevertebral soft tissues are within normal limits. IMPRESSION: Degenerative changes with mild instability at C5-6 Fiberglass Model Maker: PSCB Transcribe Date/Time: Jan 19 2025 9:08A Dictated by : HILARY BRANCH MD This examination was interpreted and the report reviewed and electronically signed by: HILARY BRANCH MD on Jan 19 2025 9:10AM EST [id number] [facility] BRENT MOSQUEDA ([id number]) 1950 F Date Time Provider Department 01/07/25 [facility] During your visit today, we recorded the following information about you: Cynthia Tsang LPN 01/07/2025 9:39 AM Signed Attempted to call patient to follow-up from procedure, no answer. Message left to return call with any questions or concerns. Cynthia Tsang LPN Allergies As of Date: 01/07/2025 (No Known Allergies) Date Reviewed: 01/06/2025 Reviewed by: Cynthia Tsang LPN - Fully Assessed Reason for Visit: Procedure Follow Up [1139] Cmt: RACHEL SI JOINT INJ Prescriptions as of 01/07/2025 - ALIGN, B.LONGUM, 10 million cell cap TAKE ONE CAPSULE BY MOUTH EVERY DAY - hydrOXYzine HCl (ATARAX) 25 mg tablet TAKE ONE TABLET BY MOUTH THREE TIMES A DAY NEEDED - metoprolol succinate ER (TOPROL XL) 25 mg 24 hr tablet TAKE 1 TABLET BY MOUTH EVERY AFTERNOON - amoxicillin (AMOXIL) 500 mg capsule - Chlorhexidine Gluconate (PERIDEX) 0.12 % solution - ibuprofen (MOTRIN) 600 mg tablet - pregabalin (LYRICA) 75 mg capsule Take 75 mg by mouth two times a day. - DULoxetine (CYMBALTA) 60 mg capsule TAKE ONE CAPSULE BY MOUTH EVERY DAY - atorvastatin (LIPITOR) 20 mg tablet Take 1 tablet by mouth once daily. - Bifidobacterium Infantis (ALIGN, B.INFANTIS,) 4 mg cap Take 1 capsule by mouth once daily. - ascorbic acid, vitamin C, (VITAMIN C) 500 mg tablet Take 1 tablet by mouth once daily. - vit C/E/Zn/coppr/lutein/ada jennifer (PRESERVISION AREDS-2 ORAL) Take 1 tablet by mouth twice daily. Problem List As Of Date 01/07/2025 Noted Resolved MERLYN (generalized anxiety disorder) [F41.1] 07/11/2021 07/15/2023 Contusion of coccyx [S30.0XXA] 07/11/2021 07/15/2023 Chronic left shoulder pain [M25.512, G89.29] 07/11/2021 Foot pain, right [M79.671] 08/28/2022 07/15/2023 Palpitations [R00.2] 12/05/2022 VELÁZQUEZ (dyspnea on exertion) [R06.09] 01/17/2023 PVC (premature ventricular contraction) [I49.3] 01/17/2023 Postoperative pain [G89.18] 02/14/2023 07/15/2023 Anxiety with depression [F41.8] 05/20/2023 Fibromyalgia [M79.7] 05/20/2023 Elevated liver enzymes [R74.8] 05/20/2023 Chronic joint pain [M25.50, G89.29] 07/27/2023 Spinal stenosis of lumbar region with neurogeni*07/27/2023 Generalized osteoarthrosis [M15.9] 08/04/2023 Recurrent falls while walking [R29.6] 08/04/2023 Lumbar radiculopathy [M54.16] 08/24/2023 Preop examination [Z01.818] 11/07/2023 S/P lumbar fusion [Z98.1] 11/20/2023 Trigeminal neuralgia [G50.0] 06/20/2024 Elevated LFTs [R79.89] 06/28/2024 Hiatal hernia [K44.9] 07/05/2024 Chronic gastritis without bleeding [K29.50] 07/05/2024 Encounter Status:Closed by CYNTHIA TSANG on 01/07/25 [facility] CNOVrenetta 12-27-2024 CNOV Office Visit (AGSPIN E3) BRENT MOSQUEDA ([id number]) 1950 F Date Time Provider Department 12/27/24 9:00 AM WILLAM MCHUGH AGSPINE3 During your visit today, we recorded the following information about you: Willam Mchugh DC 12/27/2024 10:09 AM Signed Chiropractor Progress/Procedure Note Brent L Toshamichael is a 74 year old female who presents for Chiropractic follow up for Low Back Pain VN NO LIMIT MP ACU Have you noticed any improvement since your last visit? Yes patient states she got 2 days of pain relief following visit. Have you done any home exercises that Dr. Mchugh gave you? No What is your response to the home exercises? N/A What aggravates your pain? ADL's What makes your pain better? Chiro care Current pain level? 310 How low has your pain level been on the pain scale since your last visit? 2/10 How high has your pain level been on the pain scale since your last visit? /10. Since your last visit with Dr. Mchugh have you had any Images or injections? No REVIEW OF SYSTEMS: The patient reports numbness or tingling. PHYSICAL EXAM: The patient is alert and oriented in no acute distress. There is moderate hypertonicity through the lumbar paraspinal muscles and gluteal muscles. Range of motion: improved Pain on flexion, extension, and rotation. Motor Strength: normal Neurovascular intact. Orthopedic testing: NA. Spinal segmental dysfunction: n/a. The patient is alert and oriented in no acute distress. I have confirmed and edited as necessary the HPI and ROS obtained by others. IMPRESSION AND PLAN: (M54.50, G89.29) Chronic bilateral low back pain without sciatica (primary encounter diagnosis) No orders found for this visit on 12/27/24. Treatments: Acupuncture: 38 minutes, lumbar spine, needles re-inserted every 15 minutes.(Chair position) Time in: 9:00 Time out: 10:07 Plan/Goal: Continue care until goal of less severe pain overall. Return: 2 times, 4 weeks Patient responded well, instructed to call with problems or concerns, responded well to all treatments. I personally performed treatments/procedures listed. Dr. Willam Mchugh, TERI Referring Provider: ZI STANTON [[id number]] Allergies As of Date: 12/27/2024 (No Known Allergies) Date Reviewed: 12/27/2024 Reviewed by: Puja Cornejo LMT - Fully Assessed Reason for Visit: Low Back Pain [126] Primary Visit Diagnosis:Chronic bilateral low back pain without sciatica [M54.50, G89.29] Order(s):ACUPUNCT W/O STIMUL 15 MIN [[id number]] Order #: [id number] ACUPUNCT W/O STIMUL ADDL 15M [[id number]] Order #: [id number]: 2 Prescriptions as of 12/27/2024 - hydrOXYzine HCl (ATARAX) 25 mg tablet TAKE ONE TABLET BY MOUTH THREE TIMES A DAY NEEDED - metoprolol succinate ER (TOPROL XL) 25 mg 24 hr tablet TAKE 1 TABLET BY MOUTH EVERY AFTERNOON - amoxicillin (AMOXIL) 500 mg capsule - Chlorhexidine Gluconate (PERIDEX) 0.12 % solution - ibuprofen (MOTRIN) 600 mg tablet - ALIGN, B.LONGUM, 10 million cell cap TAKE ONE CAPSULE BY MOUTH EVERY DAY - pregabalin (LYRICA) 75 mg capsule Take 75 mg by mouth two times a day. - DULoxetine (CYMBALTA) 60 mg capsule TAKE ONE CAPSULE BY MOUTH EVERY DAY - atorvastatin (LIPITOR) 20 mg tablet Take 1 tablet by mouth once daily. - Bifidobacterium Infantis (ALIGN, B.INFANTIS,) 4 mg cap Take 1 capsule by mouth once daily. - ascorbic acid, vitamin C, (VITAMIN C) 500 mg tablet Take 1 tablet by mouth once daily. - vit C/E/Zn/coppr/lutein/ada jennifer (PRESERVISION AREDS-2 ORAL) Take 1 tablet by mouth twice daily. Problem List As Of Date 12/27/2024 Noted Resolved MERLYN (generalized anxiety disorder) [F41.1] 07/11/2021 07/15/2023 Contusion of coccyx [S30.0XXA] 07/11/2021 07/15/2023 Chronic left shoulder pain [M25.512, G89.29] 07/11/2021 Foot pain, right [M79.671] 08/28/2022 07/15/2023 Palpitations [R00.2] 12/05/2022 VELÁZQUEZ (dyspnea on exertion) [R06.09] 01/17/2023 PVC (premature ventricular contraction) [I49.3] 01/17/2023 Postoperative pain [G89.18] 02/14/2023 07/15/2023 Anxiety with depression [F41.8] 05/20/2023 Fibromyalgia [M79.7] 05/20/2023 Elevated liver enzymes [R74.8] 05/20/2023 Chronic joint pain [M25.50, G89.29] 07/27/2023 Spinal stenosis of lumbar region with neurogeni*07/27/2023 Generalized osteoarthrosis [M15.9] 08/04/2023 Recurrent falls while walking [R29.6] 08/04/2023 Lumbar radiculopathy [M54.16] 08/24/2023 Preop examination [Z01.818] 11/07/2023 S/P lumbar fusion [Z98.1] 11/20/2023 Trigeminal neuralgia [G50.0] 06/20/2024 Elevated LFTs [R79.89] 06/28/2024 Hiatal hernia [K44.9] 07/05/2024 Chronic gastritis without bleeding [K29.50] 07/05/2024 Encounter Status:Closed by WILLAM MCHUGH on 12/27/24 [facility] MR Cervical spine WO contras ton 12-20-2024 IMPRESSION: Multilevel cervical spondylosis with degenerative changes greatest at C5-C6. Linear STIR hyperintensity within the C4-C5 midline cord, favoring artifact given lack of correlate on the remainder of the pulse sequences although early edema or central canal prominence are considered. Mild cord deformity at C5-C6 with slight ventral flattening. Multilevel neural foraminal stenosis as detailed level by level in the body the report. Anatomic Variant: None. Assume 7 cervical vertebrae with counting from the craniocervical junction. Fiberglass Model Maker: DESTIN Transcribe Date/Time: Dec 20 2024 3:21P Dictated by : DELLA BELL MD This examination was interpreted and the report reviewed and electronically signed by: DELLA BELL MD on Dec 20 2024 3:31PM [facility] DIVISION OF RADIOLOGY * * *Final Report* * * DATE OF EXAM: Dec 20 2024 1:31PM [facility] 0297 - MRI CERVICAL SPINE WO IVCON / PROCEDURE REASON: multiple diagnoses * * * * Physician Interpretation * * * * EXAMINATION: MRI CERVICAL SPINE WO IVCON CLINICAL HISTORY: Spinal stenosis of cervical region Impairment of balance TECHNIQUE: Routine cervical spine MR protocol without gadolinium. MQ: [id number] COMPARISON: CT brain 06/16/2023. RESULT: Counting reference: Craniocervical junction. Anatomic Variants: None. Localizer images: Right temporal probably arachnoid cyst anteriorly causing mild mass effect on the anterior temporal lobe. Polypoidal mucosal changes in the maxillary sinuses inferiorly. Alignment: Straightening of the normal cervical lordosis. Minimal anterolisthesis of C4 on C5. Slight retrolisthesis of C5 on C6. Craniocervical junction: Craniocervical junction is normal. Partially of the sella configuration. Mildly prominent retrocerebellar space at the midline. Cord: There is linear STIR hyperintensity within the C4-C5 midline cord favoring artifact given given lack of correlate on sagittal T2 and axial T2 images, less likely representing early edema or central canal prominence. Mild deformity at C5-C6 with slight ventral flattening (series 4, image 10). Bone marrow signal/fracture: No evidence of pathologic marrow infiltration. No evidence of prior fracture. Partial osseous fusion of the articulating facets at C4-C5 on the left Cervical soft tissues: The paraspinal soft tissues are within normal limits. C2-C3: Canal and foramina are patent. C3-C4: Spinal canal is patent. Facet and uncinate hypertrophy contributes to moderate right and mild left neural foraminal stenosis. C4-C5: Spinal canal is patent. Facet and uncinate hypertrophy contributes to mild bilateral neural foraminal stenosis. C5-C6: Disc height loss, endplate spurring/osteophyte complex, and mild dorsal ligamentous infolding causing mild to moderate spinal canal stenosis with preservation of CSF signal intensity along the ventral and dorsal cord. Facet and uncinate hypertrophy contributes to moderate to severe right and up to moderate left neural foraminal stenosis. C6-C7: Disc height loss, endplate spurring, ligamentous and dorsal element hypertrophy causing mild spinal canal stenosis with facet and uncinate hypertrophy contributing to moderate to severe right and mild left neural foraminal stenosis C7-T1: Canal and foramina are patent. DIVISION OF RADIOLOGY Provider, [facility] - 12/20/2024 * * *Final Report* * * DATE OF EXAM: Dec 20 2024 1:31PM [facility] 0297 - MRI CERVICAL SPINE WO IVCON / PROCEDURE REASON: multiple diagnoses * * * * Physician Interpretation * * * * EXAMINATION: MRI CERVICAL SPINE WO IVCON CLINICAL HISTORY: Spinal stenosis of cervical region Impairment of balance TECHNIQUE: Routine cervical spine MR protocol without gadolinium. MQ: [id number] COMPARISON: CT brain 06/16/2023. RESULT: Counting reference: Craniocervical junction. Anatomic Variants: None. Localizer images: Right temporal probably arachnoid cyst anteriorly causing mild mass effect on the anterior temporal lobe. Polypoidal mucosal changes in the maxillary sinuses inferiorly. Alignment: Straightening of the normal cervical lordosis. Minimal anterolisthesis of C4 on C5. Slight retrolisthesis of C5 on C6. Craniocervical junction: Craniocervical junction is normal. Partially of the sella configuration. Mildly prominent retrocerebellar space at the midline. Cord: There is linear STIR hyperintensity within the C4-C5 midline cord favoring artifact given given lack of correlate on sagittal T2 and axial T2 images, less likely representing early edema or central canal prominence. Mild deformity at C5-C6 with slight ventral flattening (series 4, image 10). Bone marrow signal/fracture: No evidence of pathologic marrow infiltration. No evidence of prior fracture. Partial osseous fusion of the articulating facets at C4-C5 on the left Cervical soft tissues: The paraspinal soft tissues are within normal limits. C2-C3: Canal and foramina are patent. C3-C4: Spinal canal is patent. Facet and uncinate hypertrophy contributes to moderate right and mild left neural foraminal stenosis. C4-C5: Spinal canal is patent. Facet and uncinate hypertrophy contributes to mild bilateral neural foraminal stenosis. C5-C6: Disc height loss, endplate spurring/osteophyte complex, and mild dorsal ligamentous infolding causing mild to moderate spinal canal stenosis with preservation of CSF signal intensity along the ventral and dorsal cord. Facet and uncinate hypertrophy contributes to moderate to severe right and up to moderate left neural foraminal stenosis. C6-C7: Disc height loss, endplate spurring, ligamentous and dorsal element hypertrophy causing mild spinal canal stenosis with facet and uncinate hypertrophy contributing to moderate to severe right and mild left neural foraminal stenosis C7-T1: Canal and foramina are patent. IMPRESSION IMPRESSION: Multilevel cervical spondylosis with degenerative changes greatest at C5-C6. Linear STIR hyperintensity within the C4-C5 midline cord, favoring artifact given lack of correlate on the remainder of the pulse sequences although early edema or central canal prominence are considered. Mild cord deformity at C5-C6 with slight ventral flattening. Multilevel neural foraminal stenosis as detailed level by level in the body the report. Anatomic Variant: None. Assume 7 cervical vertebrae with counting from the craniocervical junction. Fiberglass Model Maker: DESTIN Transcribe Date/Time: Dec 20 2024 3:21P Dictated by : DELLA BELL MD This examination was interpreted and the report reviewed and electronically signed by: DELLA BELL MD on Dec 20 2024 3:31PM EST [facility] Radiology Study observation (narrative) [facility] MR Cervical spine WO contras tOrdered By: [facility] Provider on 12-20-2024 [facility] MRI CERVICAL SPINE WO IVCONo n 12-20-2024 MRI CERVICAL SPINE WO IVCON * * *Final Report* * * DATE OF EXAM: Dec 20 2024 1:31PM [id number] - MRI CERVICAL SPINE WO IVCON / PROCEDURE REASON: multiple diagnoses * * * * Physician Interpretation * * * * EXAMINATION: MRI CERVICAL SPINE WO IVCON CLINICAL HISTORY: Spinal stenosis of cervical region Impairment of balance TECHNIQUE: Routine cervical spine MR protocol without gadolinium. MQ: [id number] COMPARISON: CT brain 06/16/2023. RESULT: Counting reference: Craniocervical junction. Anatomic Variants: None. Localizer images: Right temporal probably arachnoid cyst anteriorly causing mild mass effect on the anterior temporal lobe. Polypoidal mucosal changes in the maxillary sinuses inferiorly. Alignment: Straightening of the normal cervical lordosis. Minimal anterolisthesis of C4 on C5. Slight retrolisthesis of C5 on C6. Craniocervical junction: Craniocervical junction is normal. Partially of the sella configuration. Mildly prominent retrocerebellar space at the midline. Cord: There is linear STIR hyperintensity within the C4-C5 midline cord favoring artifact given given lack of correlate on sagittal T2 and axial T2 images, less likely representing early edema or central canal prominence. Mild deformity at C5-C6 with slight ventral flattening (series 4, image 10). Bone marrow signal/fracture: No evidence of pathologic marrow infiltration. No evidence of prior fracture. Partial osseous fusion of the articulating facets at C4-C5 on the left Cervical soft tissues: The paraspinal soft tissues are within normal limits. C2-C3: Canal and foramina are patent. C3-C4: Spinal canal is patent. Facet and uncinate hypertrophy contributes to moderate right and mild left neural foraminal stenosis. C4-C5: Spinal canal is patent. Facet and uncinate hypertrophy contributes to mild bilateral neural foraminal stenosis. C5-C6: Disc height loss, endplate spurring/osteophyte complex, and mild dorsal ligamentous infolding causing mild to moderate spinal canal stenosis with preservation of CSF signal intensity along the ventral and dorsal cord. Facet and uncinate hypertrophy contributes to moderate to severe right and up to moderate left neural foraminal stenosis. C6-C7: Disc height loss, endplate spurring, ligamentous and dorsal element hypertrophy causing mild spinal canal stenosis with facet and uncinate hypertrophy contributing to moderate to severe right and mild left neural foraminal stenosis C7-T1: Canal and foramina are patent. IMPRESSION: Multilevel cervical spondylosis with degenerative changes greatest at C5-C6. Linear STIR hyperintensity within the C4-C5 midline cord, favoring artifact given lack of correlate on the remainder of the pulse sequences although early edema or central canal prominence are considered. Mild cord deformity at C5-C6 with slight ventral flattening. Multilevel neural foraminal stenosis as detailed level by level in the body the report. Anatomic Variant: None. Assume 7 cervical vertebrae with counting from the craniocervical junction. Fiberglass Model Maker: DESTIN Transcribe Date/Time: Dec 20 2024 3:21P Dictated by : DELLA BELL MD This examination was interpreted and the report reviewed and electronically signed by: DELLA BELL MD on Dec 20 2024 3:31PM EST [id number] Normal [facility] XR CERVICAL 4V AP/LAT/OBLon 12-13-2024 XR CERVICAL 4V AP/LAT/OBL * * *Final Report* * * DATE OF EXAM: Dec 13 2024 11:43AM [id number] - XR CERVICAL 4V AP/LAT/OBL / PROCEDURE REASON: multiple diagnoses * * * * Physician Interpretation * * * * PROCEDURE: Cervical spine INDICATION: Spinal stenosis of cervical region Degenerative disc disease, cervical Impairment of balance .PT STATES LOWER BACK WEAKNESS TECHNIQUE: XR CERVICAL 4V AP/LAT/OBL COMPARISON: None FINDINGS: Slight retrolisthesis at C5-6. Moderate to advanced C5-6 and C6-7 degenerative disc disease. Mild bilateral facet arthrosis at multiple levels. Mild right-sided bony neural foraminal narrowing at C5-6 with minimal bony neural foraminal narrowing bilaterally at C6-7. Prevertebral soft tissues are within normal limits. IMPRESSION: Degenerative changes. Fiberglass Model Maker: DESTIN Transcribe Date/Time: Dec 18 2024 3:30P Dictated by : HILARY BRANCH MD This examination was interpreted and the report reviewed and electronically signed by: HILARY BRANCH MD on Dec 18 2024 3:31PM EST [id number] Normal [facility] CNOVon 12-09-2024 CNOV Office Visit (AGSPIN E3) BRENT MOSQUEDA ([id number]) 1950 F Date Time Provider Department 12/09/24 1:00 PM WILLAM MCHUGH AGSPINE3 During your visit today, we recorded the following information about you: Willam Mchugh DC 12/09/2024 2:34 PM Addendum New Patient Chiropractor Progress Note Brent Mosqueda is a 74 year old female who presents today with complaints of low back pain, bilateral radiating leg pain, and bilateral knee pain. She describes the pain as being an intermittent aching and rates the pain as a 7/10. The pain began 3 years ago as a result of no significant SEAN, although patient mentions having a fall from a horse in the . The pain is exacerbated by clothing, ADLs, bending, squatting, twisting, seated to standing, driving (prolonged), and prolonged standing/walking. Previous treatments have included surgery which included spinal surgery fusion L3-L5 dated 2023 , intermittent use of [id number] NSAIDs, Physical therapy, steroid injections, and manipulation . She complains of radiation to the both legs and both knees. She denies numbness, tingling, or electric shocks. She reports occasional popping in spine. She reports difficulty with walking (instability) and muscle weakness in legs. JAB No Limit MP 30 acu (Medicaid) Pain Intensity 2 - The pain is moderate at the moment Personal Care (Washing/Dressing) 0 - I can look after myself normally without causing extra pain Lifting 3 - Pain prevents me from lifting heavy weights but I can manage light/medium weights if conveniently positioned (e.g. on a table) Walking 2 - Pain prevents me from walking more than 1/2 mile Sitting 0 - I can sit in any chair as long as I like Standing 3 - Pain prevents me from standing more than 1/2 hour Sleeping 0 - Pain does not prevent me from sleeping well Sex Life 0 - My sex life is normal and causes no pain Social Life 1 - My social life is normal but increases the degree of pain Traveling 2 - Pain is bad but I manage journeys over 2 hours Total Score 26 Interpretation 21% - 40% - moderate disability HISTORY: FAMILY HISTORY Problem Relation Age of Onset other (multiple myeloma) Mother COPD Father No Known Problems Sister No Known Problems Brother No Known Problems Brother Colon Cancer No Family History Social Connections: Not on file Problem List Noted Noted By Resolved Resolved By Hiatal hernia 07/05/2024 Madan Weber MD No Chronic gastritis without bleeding 07/05/2024 Madan Weber MD No Elevated LFTs 06/28/2024 Portia Calhoun, DO No Trigeminal neuralgia 06/20/2024 Portia Calhoun, DO No S/P lumbar fusion 11/20/2023 Bright Soria MD No Preop examination 11/07/2023 Flaca Tate APRN.FURNACE BUILDER No Lumbar radiculopathy 08/24/2023 Portia Calhoun, DO No Generalized osteoarthrosis 08/04/2023 Sagar Calero, PT No Recurrent falls while walking 08/04/2023 Sagar Calero, PT No Chronic joint pain 07/27/2023 Portia Calhoun, DO No Spinal stenosis of lumbar region with neurogenic claudication 07/27/2023 Portia Calhoun, DO No Anxiety with depression 05/20/2023 Portia Calhoun, DO No Fibromyalgia 05/20/2023 Portia Calhoun, DO No Elevated liver enzymes 05/20/2023 Portia Calhoun, DO No VELÁZQUEZ (dyspnea on exertion) 01/17/2023 Penny Gomez, Auto Specialty Services Manager No PVC (premature ventricular contraction) 01/17/2023 Penny Gomez, Auto Specialty Services Manager No Palpitations 12/05/2022 Leonardo Goss MD No Chronic left shoulder pain 07/11/2021 Estefany Preciado MD No Postoperative pain 02/14/2023 Marcia Cifuentes, DPM 07/15/2023 Rito Adam MD Foot pain, right 08/28/2022 Estefany Preciado MD 07/15/2023 Rito Adam MD MERLYN (generalized anxiety disorder) 07/11/2021 Estefany Preciado MD 07/15/2023 Rito Adam MD Contusion of coccyx 07/11/2021 Estefany Preciado MD 07/15/2023 Rito Adam MD MEDICATIONS: Current Outpatient Medications Medication Sig metoprolol succinate ER (TOPROL XL) 25 mg 24 hr tablet TAKE 1 TABLET BY MOUTH EVERY AFTERNOON amoxicillin (AMOXIL) 500 mg capsule Chlorhexidine Gluconate (PERIDEX) 0.12 % solution (Patient not taking: Reported on 12/03/2024) ibuprofen (MOTRIN) 600 mg tablet TYSHAWN B.LONGUM, 10 million cell cap TAKE ONE CAPSULE BY MOUTH EVERY DAY pregabalin (LYRICA) 75 mg capsule Take 75 mg by mouth two times a day. DULoxetine (CYMBALTA) 60 mg capsule TAKE ONE CAPSULE BY MOUTH EVERY DAY hydrOXYzine HCl (ATARAX) 25 mg tablet TAKE ONE TABLET BY MOUTH THREE TIMES A DAY NEEDED atorvastatin (LIPITOR) 20 mg tablet Take 1 tablet by mouth once daily. Bifidobacterium Infantis (TYSHAWN B.INFANTIS,) 4 mg cap Take 1 capsule by mouth once daily. ascorbic acid, vitamin C, (VITAMIN C) 500 mg tablet Take 1 tablet by mouth once daily. vit C/E/Zn/coppr/lut (more content not included)... Normal [facility] Carlos 12-07-2024 VALN Telephone (AGSPINE2) BRENT MOSQUEDA ([id number]) 1950 F Date Time Provider Department 12/07/24 CYNTHIA MONREAL AGSPINE2 During your visit today, we recorded the following information about you: Cynthia Monreal, TALIB 12/07/2024 12:04 PM Signed INSURANCE CO. ID # GROUP # [id number] DEDUCTIBLE COINSUR. OUT OF POCKET MAX PRIOR AUTH REQU'D LIMITATIONS REFERENCE # SPOKE TO: [employer] MEDICARE/MEDICAID [id number] - - 100% - AFTER ACU VISIT LIMIT NO LIMIT MP 30 ACU [id number] ALEXANDER B Is this a Medicare or Medicaid product? YES Does this follow Medicare guidelines? Yes and No -Medicare will not cover acupuncture when performed by a chiropractor -Medicaid will cover acupuncture when following guidelines listed below Is this a [employer] product? N Does this require clinical submission through [employer]? N Chiropractor: Dr. Mchugh Contracted: Y Chiropractic benefits: In network Are the billable benefits a HARD LIMIT? N If NO, how do we ask for more visits? If a PA is required, where do we send it? : Fax: Mail: Phone: Website: I'm calling today to verify a patient's chiropractic benefits and I have multiple CPT codes I need verified that they are valid and billable by the chiropractor, I also need to know if these codes need prior auth Also inform physician representative that the PHYSICAL THERAPY codes are being billed by a CHIROPRACTOR NOT A PHYSICAL THERAPIST CPT CODE NAME COVERED? 52366 Manual manipulations spine 1-2 Y 24864 53413 Manual manipulations spine 3-4 Manual manipulations spine 5 Y Y 53192 Manual manipulations of extremities Y 86590 Hot/cold packs 55204 Mechanical traction 03077 Electrical stimulation 69621 Therapeutic exercises 27449 Neuromuscular re-education 24847 24546 Dry needling 1-2 Muscles Dry needling 3-4 muscles 92470 Massage therapy 54474 Manual therapy 82748 Acupuncture < 15 minutes Y-LB, NECK, MIGRAINE PAIN ONLY [id number] Acupuncture > 15 minutes Acupuncture with stim < 15 minutes Acupuncture with stim > 15 minutes Y-LB, NECK, MIGRAINE PAIN ONLY Cynthia Monreal LMT Allergies As of Date: 12/07/2024 (No Known Allergies) Date Reviewed: 12/03/2024 Reviewed by: Franko Avalos LPN - Fully Assessed Reason for Visit: Insurance Authorization [[id number]] Cmt: CHIRO 2024 Prescriptions as of 12/07/2024 - metoprolol succinate ER (TOPROL XL) 25 mg 24 hr tablet TAKE 1 TABLET BY MOUTH EVERY AFTERNOON - amoxicillin (AMOXIL) 500 mg capsule - Chlorhexidine Gluconate (PERIDEX) 0.12 % solution - ibuprofen (MOTRIN) 600 mg tablet - ALIGN, B.LONGUM, 10 million cell cap TAKE ONE CAPSULE BY MOUTH EVERY DAY - pregabalin (LYRICA) 75 mg capsule Take 75 mg by mouth two times a day. - DULoxetine (CYMBALTA) 60 mg capsule TAKE ONE CAPSULE BY MOUTH EVERY DAY - hydrOXYzine HCl (ATARAX) 25 mg tablet TAKE ONE TABLET BY MOUTH THREE TIMES A DAY NEEDED - atorvastatin (LIPITOR) 20 mg tablet Take 1 tablet by mouth once daily. - Bifidobacterium Infantis (ALIGN, B.INFANTIS,) 4 mg cap Take 1 capsule by mouth once daily. - ascorbic acid, vitamin C, (VITAMIN C) 500 mg tablet Take 1 tablet by mouth once daily. - vit C/E/Zn/coppr/lutein/ada jennifer (PRESERVISION AREDS-2 ORAL) Take 1 tablet by mouth twice daily. Problem List As Of Date 12/07/2024 Noted Resolved MERLYN (generalized anxiety disorder) [F41.1] 07/11/2021 07/15/2023 Contusion of coccyx [S30.0XXA] 07/11/2021 07/15/2023 Chronic left shoulder pain [M25.512, G89.29] 07/11/2021 Foot pain, right [M79.671] 08/28/2022 07/15/2023 Palpitations [R00.2] 12/05/2022 VELÁZQUEZ (dyspnea on exertion) [R06.09] 01/17/2023 PVC (premature ventricular contraction) [I49.3] 01/17/2023 Postoperative pain [G89.18] 02/14/2023 07/15/2023 Anxiety with depression [F41.8] 05/20/2023 Fibromyalgia [M79.7] 05/20/2023 Elevated liver enzymes [R74.8] 05/20/2023 Chronic joint pain [M25.50, G89.29] 07/27/2023 Spinal stenosis of lumbar region with neurogeni*07/27/2023 Generalized osteoarthrosis [M15.9] 08/04/2023 Recurrent falls while walking [R29.6] 08/04/2023 Lumbar radiculopathy [M54.16] 08/24/2023 Preop examination [Z01.818] 11/07/2023 S/P lumbar fusion [Z98.1] 11/20/2023 Trigeminal neuralgia [G50.0] 06/20/2024 Elevated LFTs [R79.89] 06/28/2024 Hiatal hernia [K44.9] 07/05/2024 Chronic gastritis without bleeding [K29.50] 07/05/2024 Encounter Status:Closed by CYNTHIA MONREAL on 12/07/24 [facility] CNCOon 12-03-2024 CNCO Letter Text [facility] CNOVon 12-03-2024 CNOV Office Visit (STEWARTPIN E3) BRENT MOSQUEDA ([id number]) 1950 F Date Time Provider Department 12/03/24 9:00 AM ZI STANTONRED ROCK3 During your visit today, we recorded the following information about you: Pulse Respiration Normal [facility] CNPNon 12-03-2024 CNPN Telephone (AGSPINE2) PANDABRENT ([id number]) 1950 F Date Time Provider Department 12/03/24 ZI STANTON AGSPINE2 During your visit today, we recorded the following information about you: Lucille Alba MA 12/03/2024 11:47 AM Signed Patient pharmacy called stating that the alprazolam script directions is for 2 tablets and the quantity is for 2 please send a new script. 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] Order(s):ALPRAZolam 0.5 mg dissolvable tabletBRING 2 TABLETS TO PROCEDURE LOCATION ON THE DAY OF PROCEDURE, TO BE ADMINISTERED BY STAFFDisp: 2 tabletRfl: 0 Prescriptions as of 12/03/2024 - ALPRAZolam 0.5 mg dissolvable tablet BRING 2 TABLETS TO PROCEDURE LOCATION ON THE DAY OF PROCEDURE, TO BE ADMINISTERED BY STAFF - metoprolol succinate ER (TOPROL XL) 25 mg 24 hr tablet TAKE 1 TABLET BY MOUTH EVERY AFTERNOON - amoxicillin (AMOXIL) 500 mg capsule - Chlorhexidine Gluconate (PERIDEX) 0.12 % solution - ibuprofen (MOTRIN) 600 mg tablet - ALIGN, B.LONGUM, 10 million cell cap TAKE ONE CAPSULE BY MOUTH EVERY DAY - pregabalin (LYRICA) 75 mg capsule Take 75 mg by mouth two times a day. - DULoxetine (CYMBALTA) 60 mg capsule TAKE ONE CAPSULE BY MOUTH EVERY DAY - hydrOXYzine HCl (ATARAX) 25 mg tablet TAKE ONE TABLET BY MOUTH THREE TIMES A DAY NEEDED - atorvastatin (LIPITOR) 20 mg tablet Take 1 tablet by mouth once daily. - Bifidobacterium Infantis (ALIGN, B.INFANTIS,) 4 mg cap Take 1 capsule by mouth once daily. - ascorbic acid, vitamin C, (VITAMIN C) 500 mg tablet Take 1 tablet by mouth once daily. - vit C/E/Zn/coppr/lutein/ada jennifer (PRESERVISION AREDS-2 ORAL) Take 1 tablet by mouth twice daily. Problem List As Of Date 12/03/2024 Noted Resolved MERLYN (generalized anxiety disorder) [F41.1] 07/11/2021 07/15/2023 Contusion of coccyx [S30.0XXA] 07/11/2021 07/15/2023 Chronic left shoulder pain [M25.512, G89.29] 07/11/2021 Foot pain, right [M79.671] 08/28/2022 07/15/2023 Palpitations [R00.2] 12/05/2022 VELÁZQUEZ (dyspnea on exertion) [R06.09] 01/17/2023 PVC (premature ventricular contraction) [I49.3] 01/17/2023 Postoperative pain [G89.18] 02/14/2023 07/15/2023 Anxiety with depression [F41.8] 05/20/2023 Fibromyalgia [M79.7] 05/20/2023 Elevated liver enzymes [R74.8] 05/20/2023 Chronic joint pain [M25.50, G89.29] 07/27/2023 Spinal stenosis of lumbar region with neurogeni*07/27/2023 Generalized osteoarthrosis [M15.9] 08/04/2023 Recurrent falls while walking [R29.6] 08/04/2023 Lumbar radiculopathy [M54.16] 08/24/2023 Preop examination [Z01.818] 11/07/2023 S/P lumbar fusion [Z98.1] 11/20/2023 Trigeminal neuralgia [G50.0] 06/20/2024 Elevated LFTs [R79.89] 06/28/2024 Hiatal hernia [K44.9] 07/05/2024 Chronic gastritis without bleeding [K29.50] 07/05/2024 Prescriptions ordered this encounter Disp Refills Start End ALPRAZOLAM 0.5 MG DISINTEGRATING TAB* 2 ta* 0 12/03/2024 12/03/2024 Sig: BRING 2 TABLETS TO PROCEDURE LOCATION ON THE DAY OF PROCEDURE, TO BE ADMINISTERED BY STAFF Medications Discontinued During This Encounter Prescriptions - ALPRAZolam 0.5 mg dissolvable tablet (Discontinued) BRING 2 TABLETS TO PROCEDURE LOCATION ON THE DAY OF PROCEDURE, TO BE ADMINISTERED BY STAFF Encounter Status:Closed by LUCILLE ALBA on 12/03/24 [facility] ([id number]) 1950 F Date Time Provider Department 10/25/24 [facility] During your visit today, we recorded the following information about you: Krystle Juárez RN 10/25/2024 2:33 PM Signed Patient contacted the office stating she is not able to be seen by Pain Management until 12/03/2024 and was inqu[address] if Dr. Rizo had any further recommendations. I educated that I would discuss this with Dr. Rizo and follow-up as able. She was very appreciative. BROOKLYN Dalton Nicole C, RN 10/26/2024 11:[address] Rizo aware of patient's pain management appointment on 12/03/2024. Dr. Rizo continues to recommended pain management for an SI joint injection and to follow-up in 2 weeks after injection. Education provided on symptoms that would warrant further evaluation in the ED. Patient voiced understanding. Advised patient to contact our office with new or worsening symptoms. She was appreciative of the assistance. BROOKLYN Dalton Allergies As of Date: 10/25/2024 (No Known Allergies) Date Reviewed: 10/08/2024 Reviewed by: Yenifer Taveras MA - Fully Assessed Prescriptions as of 10/26/2024 - metoprolol succinate ER (TOPROL XL) 25 mg 24 hr tablet TAKE 1 TABLET BY MOUTH EVERY AFTERNOON - amoxicillin (AMOXIL) 500 mg capsule - Chlorhexidine Gluconate (PERIDEX) 0.12 % solution - ibuprofen (MOTRIN) 600 mg tablet - ALIGN, B.LONGUM, 10 million cell cap TAKE ONE CAPSULE BY MOUTH EVERY DAY - pregabalin (LYRICA) 75 mg capsule Take 75 mg by mouth two times a day. - DULoxetine (CYMBALTA) 60 mg capsule TAKE ONE CAPSULE BY MOUTH EVERY DAY - hydrOXYzine HCl (ATARAX) 25 mg tablet TAKE ONE TABLET BY MOUTH THREE TIMES A DAY NEEDED - atorvastatin (LIPITOR) 20 mg tablet Take 1 tablet by mouth once daily. - Bifidobacterium Infantis (ALIGN, B.INFANTIS,) 4 mg cap Take 1 capsule by mouth once daily. - ascorbic acid, vitamin C, (VITAMIN C) 500 mg tablet Take 1 tablet by mouth once daily. - vit C/E/Zn/coppr/lutein/ada jennifer (PRESERVISION AREDS-2 ORAL) Take 1 tablet by mouth twice daily. Problem List As Of Date 10/25/2024 Noted Resolved MERLYN (generalized anxiety disorder) [F41.1] 07/11/2021 07/15/2023 Contusion of coccyx [S30.0XXA] 07/11/2021 07/15/2023 Chronic left shoulder pain [M25.512, G89.29] 07/11/2021 Foot pain, right [M79.671] 08/28/2022 07/15/2023 Palpitations [R00.2] 12/05/2022 VELÁZQUEZ (dyspnea on exertion) [R06.09] 01/17/2023 PVC (premature ventricular contraction) [I49.3] 01/17/2023 Postoperative pain [G89.18] 02/14/2023 07/15/2023 Anxiety with depression [F41.8] 05/20/2023 Fibromyalgia [M79.7] 05/20/2023 Elevated liver enzymes [R74.8] 05/20/2023 Chronic joint pain [M25.50, G89.29] 07/27/2023 Spinal stenosis of lumbar region with neurogeni*07/27/2023 Generalized osteoarthrosis [M15.9] 08/04/2023 Recurrent falls while walking [R29.6] 08/04/2023 Lumbar radiculopathy [M54.16] 08/24/2023 Preop examination [Z01.818] 11/07/2023 S/P lumbar fusion [Z98.1] 11/20/2023 Trigeminal neuralgia [G50.0] 06/20/2024 Elevated LFTs [R79.89] 06/28/2024 Hiatal hernia [K44.9] 07/05/2024 Chronic gastritis without bleeding [K29.50] 07/05/2024 Encounter Status:Closed by KRYSTLE JUÁREZ on 10/25/24 [facility] CNPN Telephone (AGSPINE2) BRENT MOSQUEDA ([id number]) 1950 F Date Time Provider Department 10/25/24 ARNOLDO BARRIOS AGSPINE2 During your visit today, we recorded the following information about you: Saritha Bailon 10/25/2024 9:40 AM Addendum [facility] for for the below information Patient has already had the injection that Dr Rizo ordered- if she wants another injection she needs to be scheduled as a new patient with our department Aisha Casillas 10/25/2024 1:55 PM Signed Brent Mosqueda has been scheduled for an Office visit on 12/03 at 9am , [place] [address] [place] [address]. Aishabay Rosa Allergies As of Date: 10/25/2024 (No Known Allergies) Date Reviewed: 10/08/2024 Reviewed by: Yenifer Taveras MA - Fully Assessed Prescriptions as of 10/26/2024 - metoprolol succinate ER (TOPROL XL) 25 mg 24 hr tablet TAKE 1 TABLET BY MOUTH EVERY AFTERNOON - amoxicillin (AMOXIL) 500 mg capsule - Chlorhexidine Gluconate (PERIDEX) 0.12 % solution - ibuprofen (MOTRIN) 600 mg tablet - ALIGN, B.LONGUM, 10 million cell cap TAKE ONE CAPSULE BY MOUTH EVERY DAY - pregabalin (LYRICA) 75 mg capsule Take 75 mg by mouth two times a day. - DULoxetine (CYMBALTA) 60 mg capsule TAKE ONE CAPSULE BY MOUTH EVERY DAY - hydrOXYzine HCl (ATARAX) 25 mg tablet TAKE ONE TABLET BY MOUTH THREE TIMES A DAY NEEDED - atorvastatin (LIPITOR) 20 mg tablet Take 1 tablet by mouth once daily. - Bifidobacterium Infantis (ALIGN, B.INFANTIS,) 4 mg cap Take 1 capsule by mouth once daily. - ascorbic acid, vitamin C, (VITAMIN C) 500 mg tablet Take 1 tablet by mouth once daily. - vit C/E/Zn/coppr/lutein/ada jennifer (PRESERVISION AREDS-2 ORAL) Take 1 tablet by mouth twice daily. Problem List As Of Date 10/25/2024 Noted Resolved MERLYN (generalized anxiety disorder) [F41.1] 07/11/2021 07/15/2023 Contusion of coccyx [S30.0XXA] 07/11/2021 07/15/2023 Chronic left shoulder pain [M25.512, G89.29] 07/11/2021 Foot pain, right [M79.671] 08/28/2022 07/15/2023 Palpitations [R00.2] 12/05/2022 VELÁZQUEZ (dyspnea on exertion) [R06.09] 01/17/2023 PVC (premature ventricular contraction) [I49.3] 01/17/2023 Postoperative pain [G89.18] 02/14/2023 07/15/2023 Anxiety with depression [F41.8] 05/20/2023 Fibromyalgia [M79.7] 05/20/2023 Elevated liver enzymes [R74.8] 05/20/2023 Chronic joint pain [M25.50, G89.29] 07/27/2023 Spinal stenosis of lumbar region with neurogeni*07/27/2023 Generalized osteoarthrosis [M15.9] 08/04/2023 Recurrent falls while walking [R29.6] 08/04/2023 Lumbar radiculopathy [M54.16] 08/24/2023 Preop examination [Z01.818] 11/07/2023 S/P lumbar fusion [Z98.1] 11/20/2023 Trigeminal neuralgia [G50.0] 06/20/2024 Elevated LFTs [R79.89] 06/28/2024 Hiatal hernia [K44.9] 07/05/2024 Chronic gastritis without bleeding [K29.50] 07/05/2024 Encounter Status:Closed by SARITHA BAILON on 10/25/24 [facility] 10-21-2024 CNPN Telephone (NEAGCLM) BRENT MOSQUEDA ([id number]) 1950 F Date Time Provider Department 10/21/24 STEPHEN RIZO NEAGCLM During your visit today, we recorded the following information about you: Jos Morin 10/21/2024 1:20 PM Signed Patient called in stated she called PM for inj and they were supposed to call patient back to schedule and patient has not heard from them. I informed patient our office is unable to schedule for that department she would have to call the PM she went o for previous inj and schedule with them Allergies As of Date: 10/21/2024 (No Known Allergies) Date Reviewed: 10/08/2024 Reviewed by: Yenifer Taveras MA - Fully Assessed Prescriptions as of 10/21/2024 - metoprolol succinate ER (TOPROL XL) 25 mg 24 hr tablet TAKE 1 TABLET BY MOUTH EVERY AFTERNOON - amoxicillin (AMOXIL) 500 mg capsule - Chlorhexidine Gluconate (PERIDEX) 0.12 % solution - ibuprofen (MOTRIN) 600 mg tablet - ALIGN, B.LONGUM, 10 million cell cap TAKE ONE CAPSULE BY MOUTH EVERY DAY - pregabalin (LYRICA) 75 mg capsule Take 75 mg by mouth two times a day. - DULoxetine (CYMBALTA) 60 mg capsule TAKE ONE CAPSULE BY MOUTH EVERY DAY - hydrOXYzine HCl (ATARAX) 25 mg tablet TAKE ONE TABLET BY MOUTH THREE TIMES A DAY NEEDED - atorvastatin (LIPITOR) 20 mg tablet Take 1 tablet by mouth once daily. - Bifidobacterium Infantis (ALIGN, B.INFANTIS,) 4 mg cap Take 1 capsule by mouth once daily. - ascorbic acid, vitamin C, (VITAMIN C) 500 mg tablet Take 1 tablet by mouth once daily. - vit C/E/Zn/coppr/lutein/ada jennifer (PRESERVISION AREDS-2 ORAL) Take 1 tablet by mouth twice daily. Problem List As Of Date 10/21/2024 Noted Resolved MERLYN (generalized anxiety disorder) [F41.1] 07/11/2021 07/15/2023 Contusion of coccyx [S30.0XXA] 07/11/2021 07/15/2023 Chronic left shoulder pain [M25.512, G89.29] 07/11/2021 Foot pain, right [M79.671] 08/28/2022 07/15/2023 Palpitations [R00.2] 12/05/2022 VELÁZQUEZ (dyspnea on exertion) [R06.09] 01/17/2023 PVC (premature ventricular contraction) [I49.3] 01/17/2023 Postoperative pain [G89.18] 02/14/2023 07/15/2023 Anxiety with depression [F41.8] 05/20/2023 Fibromyalgia [M79.7] 05/20/2023 Elevated liver enzymes [R74.8] 05/20/2023 Chronic joint pain [M25.50, G89.29] 07/27/2023 Spinal stenosis of lumbar region with neurogeni*07/27/2023 Generalized osteoarthrosis [M15.9] 08/04/2023 Recurrent falls while walking [R29.6] 08/04/2023 Lumbar radiculopathy [M54.16] 08/24/2023 Preop examination [Z01.818] 11/07/2023 S/P lumbar fusion [Z98.1] 11/20/2023 Trigeminal neuralgia [G50.0] 06/20/2024 Elevated LFTs [R79.89] 06/28/2024 Hiatal hernia [K44.9] 07/05/2024 Chronic gastritis without bleeding [K29.50] 07/05/2024 Encounter Status:Closed by JOS MORIN on 10/21/24 [facility] CNOVon 10-08-2024 CN Office Visit (AGOR ) BRENT MOSQUEDA ([id number]) 1950 F Date Time Provider Department 10/08/24 11:45 AM STEPHEN RIZO AGOR During your visit today, we recorded the following information about you: Pulse Respiration Blood pressure Weight 80/minute 16/minute 95/63 74.8 kg Stephen Rizo DO 10/08/2024 1:16 PM Signed Stephen Rizo DO [facility] Orthopedics - Orthopedic Spine Surgeon [facility] [id number] [place] [address] Phone: [phone] FAX: [phone] SPINE SURGERY OUTPATIENT CONSULT SERVICE DATE: 10/08/2024 LAST OFFICE VISIT: 09/07/2024 DATE OF : 1950 REFERRING PROVIDER: No referring provider defined for this encounter. CHIEF COMPLAINT: Low back pain, bilateral leg pain HISTORY OF PRESENT ILLNESS Brent Mosqueda is a 74 year old female presenting alone. She has a past medical history of fibromyalgia, arthritis, palpitations, lumbar radiculopathy and hyperlipidemia. Today she reports that her symptoms are the same as previous visit. She continued to have bad low back pain. She stated the back pain was only present when she was up standing and walking. She noted her pain was completely gone when sitting. She reported pain in her anterior thighs. She endorsed weakness in her bilateral lower extremities and stated she felt weak and cannot get up off the floor. She reported physical therapy made her pain significantly worse. CT scan of the lumbar spine displayed possible pseudoarthrosis with loosening of the L5 screws bilaterally. MRI of the lumbar spine displayed mild to moderate canal stenosis L3-4. It was discussed I believed her low back pain could be caused of a pseudoarthrosis in her lumbar spine. It was recommended for pain management consult for an injection at L3-4 and follow-up 2 weeks after the injection. Today she reports that her symptoms are the same. States that the injection gave her very mild relief. She states that she did not notice a huge change in her pain from the injection. Her pain still located on her bilateral low back as a deep pressure which extends down into her legs. This pain does not go past her knees. She presents for evaluation and plan of care. 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 Rizo REMOVAL GALLBLADDER FAMILY HISTORY Problem Relation Age of Onset other (multiple myeloma) Mother COPD Father No Known Problems Sister No Known Problems Brother No Known Problems Brother Colon Cancer No Family History Social History Tobacco Use Smoking status: Never Passive exposure: Never Smokeless tobacco: Never Vaping Use Vaping status: Never Used Substance Use Topics Alcohol use: Not Currently Comment: rare occassion Drug use: Never ALLERGIES No Known Allergies MEDICATIONS: ALIGN, B.LONGUM, 10 million cell cap TAKE ONE CAPSULE BY MOUTH EVERY DAY pregabalin (LYRICA) 75 mg capsule Take 75 mg by mouth two times a day. DULoxetine (CYMBALTA) 60 mg capsule TAKE ONE CAPSULE BY MOUTH EVERY DAY hydrOXYzine HCl (ATARAX) 25 mg tablet TAKE ONE TABLET BY MOUTH THREE TIMES A DAY NEEDED atorvastatin (LIPITOR) 20 mg tablet Take 1 tablet by mouth once daily. (Patient not taking: Reported on 09/23/2024) Bifidobacterium Infantis (TYSHAWN, BMatthewINFANTSHAHRIAR,) 4 mg cap Take 1 capsule by mouth once daily. metoprolol succinate ER (TOPROL XL) 25 mg 24 hr tablet Take 1 tablet by mouth every afternoon. ascorbic acid, vitamin C, (VITAMIN C) 500 mg tablet Take 1 tablet by mouth once daily. vit C/E/Zn/coppr/lutein/ada jennifer (PRESERVISION AREDS-2 ORAL) Take 1 tablet by mouth twice daily. REVIEW OF SYSTEMS Review of Systems OBJECTIVE: There were no vitals taken for this visit. PHYSICAL EXAM GENERAL APPEARANCE: Well nourished, well developed, and no apparent distress. (more content not included)... Normal [facility] 09-24-2024 [facility] Telephone (AGSPINE3) BRENT MOSQUEDA ([id number]) 1950 F Date Time Provider Department 09/24/24 [facility] During your visit today, we recorded the following information about you: Allison Fairchild LPN 09/24/2024 9:45 AM Signed Attempted to contact patient to follow up from procedure. Left a voicemail asking patient to return call if they have any questions or concerns. Allison Fairchild LPN Allergies As of Date: 09/24/2024 (No Known Allergies) Date Reviewed: 09/23/2024 Reviewed by: Cynthia Tsang LPN - Fully Assessed Prescriptions as of 09/24/2024 - pregabalin (LYRICA) 75 mg capsule Take 75 mg by mouth two times a day. - DULoxetine (CYMBALTA) 60 mg capsule TAKE ONE CAPSULE BY MOUTH EVERY DAY - hydrOXYzine HCl (ATARAX) 25 mg tablet TAKE ONE TABLET BY MOUTH THREE TIMES A DAY NEEDED - atorvastatin (LIPITOR) 20 mg tablet Take 1 tablet by mouth once daily. - Bifidobacterium Infantis (ALIGN, B.INFANTIS,) 4 mg cap Take 1 capsule by mouth once daily. - metoprolol succinate ER (TOPROL XL) 25 mg 24 hr tablet Take 1 tablet by mouth every afternoon. - ascorbic acid, vitamin C, (VITAMIN C) 500 mg tablet Take 1 tablet by mouth once daily. - vit C/E/Zn/coppr/lutein/ada jennifer (PRESERVISION AREDS-2 ORAL) Take 1 tablet by mouth twice daily. Problem List As Of Date 09/24/2024 Noted Resolved MERLYN (generalized anxiety disorder) [F41.1] 07/11/2021 07/15/2023 Contusion of coccyx [S30.0XXA] 07/11/2021 07/15/2023 Chronic left shoulder pain [M25.512, G89.29] 07/11/2021 Foot pain, right [M79.671] 08/28/2022 07/15/2023 Palpitations [R00.2] 12/05/2022 VELÁZQUEZ (dyspnea on exertion) [R06.09] 01/17/2023 PVC (premature ventricular contraction) [I49.3] 01/17/2023 Postoperative pain [G89.18] 02/14/2023 07/15/2023 Anxiety with depression [F41.8] 05/20/2023 Fibromyalgia [M79.7] 05/20/2023 Elevated liver enzymes [R74.8] 05/20/2023 Chronic joint pain [M25.50, G89.29] 07/27/2023 Spinal stenosis of lumbar region with neurogeni*07/27/2023 Generalized osteoarthrosis [M15.9] 08/04/2023 Recurrent falls while walking [R29.6] 08/04/2023 Lumbar radiculopathy [M54.16] 08/24/2023 Preop examination [Z01.818] 11/07/2023 S/P lumbar fusion [Z98.1] 11/20/2023 Trigeminal neuralgia [G50.0] 06/20/2024 Elevated LFTs [R79.89] 06/28/2024 Hiatal hernia [K44.9] 07/05/2024 Chronic gastritis without bleeding [K29.50] 07/05/2024 Encounter Status:Closed by ALLISON FAIRCHILD on 09/24/24 [facility] CNCOon 09-16-2024 CNCO Letter Text [facility] CNPNon 09-16-2024 CNPN Telephone (SPAGBA) BRENT MOSQUEDA ([id number]) 1950 F Date Time Provider Department 09/16/24 EBEN JONAS SPAGBA During your visit today, we recorded the following information about you: Jael Andre PSS 09/16/2024 3:01 PM Signed Procedure(s) being scheduled: Bilateral L3-4 TFESI under fluoroscopic guidance 1.Are you diabetic No 2. Are you on any blood thinners? No If yes, does it require a hold? No If yes, was approval letter sent? No 3. Are you taking any aspirin? No 4. Are you currently taking any antibiotics? No If yes, is it prophylactic or for treatment of an infection? 5. Do you have any allergies to latex? No 6. Do you have any allergies to seafood or shellfish? No 7. Do you have any allergies to x-ray dye? No 8. Does this procedure require a nascar driver? Yes If yes, has patient been notified that a nascar driver is needed and must be present at check in? yes 9. Were the pre-procedure instructions explained and provided to the patient? Yes 10. Do you have a pacemaker? No 11. Do you have an internal stimulator of any kind? No If yes, please bring the remote with you to your procedure visit. DIPTI Lincoln Allergies As of Date: 09/16/2024 (No Known Allergies) Date Reviewed: 09/07/2024 Reviewed by: Kayla Barkley MA - Fully Assessed Reason for Visit: Injections [199] Prescriptions as of 09/16/2024 - pregabalin (LYRICA) 75 mg capsule Take 75 mg by mouth two times a day. - DULoxetine (CYMBALTA) 60 mg capsule TAKE ONE CAPSULE BY MOUTH EVERY DAY - hydrOXYzine HCl (ATARAX) 25 mg tablet TAKE ONE TABLET BY MOUTH THREE TIMES A DAY NEEDED - atorvastatin (LIPITOR) 20 mg tablet Take 1 tablet by mouth once daily. - Bifidobacterium Infantis (ALIGN, B.INFANTIS,) 4 mg cap Take 1 capsule by mouth once daily. - metoprolol succinate ER (TOPROL XL) 25 mg 24 hr tablet Take 1 tablet by mouth every afternoon. - ascorbic acid, vitamin C, (VITAMIN C) 500 mg tablet Take 1 tablet by mouth once daily. - vit C/E/Zn/coppr/lutein/ada jennifer (PRESERVISION AREDS-2 ORAL) Take 1 tablet by mouth twice daily. Problem List As Of Date 09/16/2024 Noted Resolved MERLYN (generalized anxiety disorder) [F41.1] 07/11/2021 07/15/2023 Contusion of coccyx [S30.0XXA] 07/11/2021 07/15/2023 Chronic left shoulder pain [M25.512, G89.29] 07/11/2021 Foot pain, right [M79.671] 08/28/2022 07/15/2023 Palpitations [R00.2] 12/05/2022 VELÁZQUEZ (dyspnea on exertion) [R06.09] 01/17/2023 PVC (premature ventricular contraction) [I49.3] 01/17/2023 Postoperative pain [G89.18] 02/14/2023 07/15/2023 Anxiety with depression [F41.8] 05/20/2023 Fibromyalgia [M79.7] 05/20/2023 Elevated liver enzymes [R74.8] 05/20/2023 Chronic joint pain [M25.50, G89.29] 07/27/2023 Spinal stenosis of lumbar region with neurogeni*07/27/2023 Generalized osteoarthrosis [M15.9] 08/04/2023 Recurrent falls while walking [R29.6] 08/04/2023 Lumbar radiculopathy [M54.16] 08/24/2023 Preop examination [Z01.818] 11/07/2023 S/P lumbar fusion [Z98.1] 11/20/2023 Trigeminal neuralgia [G50.0] 06/20/2024 Elevated LFTs [R79.89] 06/28/2024 Hiatal hernia [K44.9] 07/05/2024 Chronic gastritis without bleeding [K29.50] 07/05/2024 Encounter Status:Closed by JAEL ANDRE on 09/16/24 Normal [facility] CNOVon 09-07-2024 CNOV Office Visit (AGOR ) BRENT MOSQUEDA ([id number]) 1950 F Date Time Provider Department 09/07/24 8:15 AM [facility] your visit today, we recorded the following information about you: Pulse Blood pressure Weight Height 66/minute 114/74 79.5 kg 1.575 m Stephen Rizo DO 09/07/2024 9:33 AM Signed Stephen Rizo DO [facility] Orthopedics - Orth[facility] Spine Surgeon [facility] [address] [place] [address] Phone: [phone] ([phone] FAX: [phone] SPINE SURGERY OUTPATIENT CONSULT SERVICE DATE: 09/07/2024 LAST OFFICE VISIT: 08/10/2024 DATE OF : 1950 REFERRING PROVIDER: No referring provider defined for this encounter. CHIEF COMPLAINT: Low back pain, bilateral leg pain SURGERY: L4-L5 posterior spinal fusion 11/20/2023 PREOPERATIVE SYMPTOMS: Severe bilateral leg pain HISTORY OF PRESENT ILLNESS Brent Mosqueda is a 74 year old female presenting alone. She has a past medical history of fibromyalgia, arthritis, palpitations, lumbar radiculopathy and hyperlipidemia. She was last evaluated in office on 08/10/2024 for follow-up. She reported worsening pain since participating in physical therapy. She noted pain started in her bilateral sides of low back with radiation to entire bilateral lower extremities, left side worse than right. She stated she felt her left leg was giving out when ambulating. Endorsed bilateral lower extremity weakness. She reported falling down two steps due to her left leg giving out. She stated she was having difficulty sleeping at night due to her leg pain. She noted the worst pain was in her low back. Denied any paresthesia. Denied loss of bowel or bladder function. Radiographic imaging of the lumbar spine displayed an L4-5 posterolateral fusion with hardware in stable position. It was recommended to obtain an MRI of the lumbar spine with and without contrast, in addition to a CT scan of the lumbar spine. It was recommended to follow-up once completed. Today she reports that her symptoms are the same. Continues to have bad low back pain. States the back pain is only present when she is up standing and walking. States that when she is sitting it is completely gone. States that the pain she has in her legs is in her anterior thighs. States that she feels weak and she cannot get up off the floor. States that physical therapy made her pain significantly worse. She presents for evaluation, image review and plan of care. 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 Rizo REMOVAL GALLBLADDER FAMILY HISTORY Problem Relation Age of Onset other (multiple myeloma) Mother COPD Father No Known Problems Sister No Known Problems Brother No Known Problems Brother Colon Cancer No Family History Social History Tobacco Use Smoking status: Never Passive exposure: Never Smokeless tobacco: Never Vaping Use Vaping status: Never Used Substance Use Topics Alcohol use: Not Currently Comment: rare occassion Drug use: Never ALLERGIES No Known Allergies MEDICATIONS: DULoxetine (CYMBALTA) 60 mg capsule TAKE ONE CAPSULE BY MOUTH EVERY DAY hydrOXYzine HCl (ATARAX) 25 mg tablet TAKE ONE TABLET BY MOUTH THREE TIMES A DAY NEEDED atorvastatin (LIPITOR) 20 mg tablet Take 1 tablet by mouth once daily. Bifidobacterium Infantis (ALIGN, B.INFANTIS,) 4 mg cap Take 1 capsule by mouth once daily. carBAMazepine XR (TEGRETOL XR) 100 mg 12 hr tablet Take 1 tablet by mouth two times a day for 7 days, THEN 2 tablets two times a day. pregabalin (LYRICA) 100 mg capsule Take 1 capsule by mouth three times a day. metoprolol succinate ER (TOPROL XL) 25 mg 24 hr tablet Take 1 tablet by mouth every afternoon. ascorbic acid, vitamin C, (VITAMIN C) 500 mg tablet Take 1 tablet by mouth once daily. vit C/E/Zn/coppr/lutein/ada jennifer (PRESERVISION AREDS-2 ORAL) (more content not included)... Normal [facility] BRENT MOSQUED[facility] ([id number]) 1950 F Date Time Provider Department 09/07/24 EBEN JONAS AGSPINE3 During your visit today, we recorded the following information about you: Elis Alvarez 09/07/2024 9:02 AM Signed Received a referral from Stephen Rizo DO for patient to have Needs an injection at L3-4 Imaging- 08/31/24- Lumbar MRI Anticoag- NONE Please review and advise Elis Alvarez [facility] [place] [id number] [facility] [place] [address] P: [phone] F: [phone] Eben Jonas MD 09/07/2024 11:56 AM Signed Fast Track Injection Request: Referring Surgeon: Stephen Rizo DO, Spine Surgeon Injection Requested: Bilateral L3-4 TFESI under fluoroscopic guidance Imaging reviewed: MRI lumbar Anti-Coagulants: No Relevant Allergies: NKDA Other notable: None Patient appropriate for the requested procedure. Order placed. Staff informed to assist patient with scheduling. Eben Solorzano MD, MD 09/07/2024 11:56 AM Signed Addended by: EBEN JONAS on: 09/07/2024 11:56 AM Modules accepted: Orders Elis Alvarez 09/07/2024 12:49 PM Signed Submitted via [employer] web portal Reference #: [id number] Elis Alvarez 09/09/2024 8:45 AM Signed Checked status- still pending Elis Alvarez 09/14/2024 9:49 AM Signed Checked status- still pending Saritha Bailon 09/14/2024 1:46 PM Signed Pt called to ask about her fast trach injections. I informed the pt that its still pending and someone will reach out to her as soon as we hear back from the insurance. Elis Bolden 09/16/2024 9:27 AM Signed Auth is good. Referral is updated. Patient ok to schedule. [facility] Jael Andre PSS 09/16/2024 2:34 PM Signed Lvm to call back to schedule Jael Andre Seth to Dr. Arnoldo Barrios,PhD, Dr. Earl Rogers DO, Timothy Lyn, TELEVISION NEWS PHOTOGRAPHER,FURNACE BUILDER [facility] P: [phone] / F: [phone] Jael Andre PSS 09/16/2024 3:11 PM Signed Patient is scheduled for 09/[address] [place] [address] Ghulam Andre Seth to Dr. Arnoldo Barrios,PhD, Dr. Earl Rogers DO, Timothy Lyn, TELEVISION NEWS PHOTOGRAPHER,FURNACE BUILDER [facility] P: [phone] / F: [phone] Allergies As of Date: 09/07/2024 (No Known Allergies) Date Reviewed: 09/07/2024 Reviewed by: Kayla Barkley MA - Fully Assessed Reason for Visit: Fast Track [Other] Primary Visit Diagnosis:Lumbar radiculopathy [M54.16] Order(s):PRE-CERT ORDER (AG) [[id number]] Order #: [id number]: 1 Prescriptions as of 09/16/2024 - pregabalin (LYRICA) 75 mg capsule Take 75 mg by mouth two times a day. - DULoxetine (CYMBALTA) 60 mg capsule TAKE ONE CAPSULE BY MOUTH EVERY DAY - hydrOXYzine HCl (ATARAX) 25 mg tablet TAKE ONE TABLET BY MOUTH THREE TIMES A DAY NEEDED - atorvastatin (LIPITOR) 20 mg tablet Take 1 tablet by mouth once daily. - Bifidobacterium Infantis (ALIGN, B.INFANTIS,) 4 mg cap Take 1 capsule by mouth once daily. - metoprolol succinate ER (TOPROL XL) 25 mg 24 hr tablet Take 1 tablet by mouth every afternoon. - ascorbic acid, vitamin C, (VITAMIN C) 500 mg tablet Take 1 tablet by mouth once daily. - vit C/E/Zn/coppr/lutein/ada jennifer (PRESERVISION AREDS-2 ORAL) Take 1 tablet by mouth twice daily. Problem List As Of Date 09/07/2024 Noted Resolved MERLYN (generalized anxiety disorder) [F41.1] 07/11/2021 07/15/2023 Contusion of coccyx [S30.0XXA] 07/11/2021 07/15/2023 Chronic left shoulder pain [M25.512, G89.29] 07/11/2021 Foot pain, right [M79.671] 08/28/2022 07/15/2023 Palpitations [R00.2] 12/05/2022 VELÁZQUEZ (dyspnea on exertion) [R06.09] 01/17/2023 PVC (premature ventricular contraction) [I49.3] 01/17/2023 Postoperative pain [G89.18] 02/14/2023 07/15/2023 Anxiety with depression [F41.8] 05/20/2023 Fibromyalgia [M79.7] 05/20/2023 Elevated liver enzymes [R74.8] 05/20/2023 Chronic joint pain [M25.50, G89.29] 07/27/2023 Spinal stenosis of lumbar region with neurogeni*07/27/2023 Generalized osteoarthrosis [M15.9] 08/04/2023 Recurrent falls while walking [R29.6] 08/04/2023 Lumbar radiculopathy [M54.16] 08/24/2023 Preop examination [Z01.818] 11/07/2023 S/P lumbar fusion [Z98.1] 11/20/2023 Trigeminal neuralgia [G50.0] 06/20/2024 Elevated LFTs [R79.89] 06/28/2024 Hiatal hernia [K44.9] 07/05/2024 Chronic gastritis without bleeding [K29.50] 07/05/2024 Encounter Status:Closed by RIDDLE, ELIS on 09/07/[address] [facility] [address] LUMBAR SPINE WO IVCONon 0 08-31-2024 CT LUMBAR SPINE WO IVCON * * *Final Report* * * DATE OF EXAM: Aug 31 2024 2:15PM [facility] 0[facility] - CT LUMBAR SPINE WO IVCON / PROCEDURE REASON: Radiculopathy of lumbar region * * * * Physician Interpretation * * * * EXAMINATION: CT LUMBAR SPINE WO IVCON CLINICAL HISTORY: Radiculopathy of lumbar region TECHNIQUE: Spiral, high resolution axial unenhanced images were obtained from the thoracolumbar junction to the sacrum with sagittal and coronal planar reconstructions. MQ: CTLSPWO_3 CT Radiation dose: Integrated Dose-Length Product (DLP) for this visit = 1205 mGy*cm. CT Dose Reduction Employed: Automated exposure control(AEC) and iterative recon COMPARISON: Lumbar spine CT 11/20/2023.. RESULT: Counting reference: Lumbosacral junction. For the purposes of this report, L4-5 is considered the level of the iliac crest and assume there are 5 lumbar-type vertebrae. Anatomic variant: None. Postoperative change: There are postoperative findings related to decompressive laminectomy at L4-5 and posterior fusion with transpedicular screws and vertical fusion rods at L4-5. There is subtle lucency around the left L5 transpedicular screw, which may represent loosening. The hardware is intact without fracture. Poultry Scientist (topogram) images: No significant findings. Alignment: There is minimal grade 1 anterolisthesis of L4 on L5. There is minimal retrolisthesis of L2 on L3. There is mild degenerative loss of interval disc space height at L1-L2, L2-3 and L5-S1 with vacuum disc phenomena at L5-S1 and mild degenerative loss at L4-5. Bone marrow /fracture: There is a intraosseous hemangioma in the T11 vertebral body. No evidence of a lytic or blastic process in the visualized spine. No evidence of acute or chronic fracture. Paraspinal soft tissues: The paraspinal soft tissues planes are maintained. Lower thoracic spine: The visualized lower thoracic bony canal and foramina are patent. L1-L2: Canal and foramina are patent. L2-L3: Canal and foramina are patent L3-L4: There is mild diffuse disc bulge and ligamentum flavum thickening resulting in at least mild spinal canal stenosis. There is no significant neural foraminal narrowing. L4-L5: The spinal canal is decompressed and appears patent. There is questionable mild bilateral neural foraminal narrowing, secondary to mild facet arthropathy and mild diffuse disc bulge. L5-S1: There is mild asymmetric diffuse disc bulge resulting in partial effacement of the right subarticular zone, and at least mild left and mild to moderate right neural foraminal narrowing. Sacrum and iliac wings: There is an intraosseous hemangioma in the mid aspect of the L1 sacrum. The visualized sacrum and iliac wings are otherwise within normal limits. IMPRESSION: Postoperative changes and multilevel degenerative changes of the lumbar spine, as detailed. Subtle lucency around the left L5 transpedicular screw, which may represent loosening. The hardware is intact without fracture. Anatomic Lumbar Variant: None. L4-5 is considered the level of the iliac crest and assume there are 5 lumbar-type vertebrae. Fiberglass Model Maker: [facility] Transcribe Date/Time: Aug 31 2024 2:48P Dictated by : LUCILA PICKENS MD This examination was interpreted and the report reviewed and electronically signed by: LUCILA PICKENS MD on Aug 31 2024 3:01PM EST [id number] Normal [facility] CT Lumbar spine WO contrasto n 08-31-2024 IMPRESSION: Postoperative changes and multilevel degenerative changes of the lumbar spine, as detailed. Subtle lucency around the left L5 transpedicular screw, which may represent loosening. The hardware is intact without fracture. Anatomic Lumbar Variant: None. L4-5 is considered the level of the iliac crest and assume there are 5 lumbar-type vertebrae. Fiberglass Model Maker: [facility] Transcribe Date/Time: Aug 31 2024 2:48P Dictated by : LUCILA PICKENS MD This examination was interpreted and the report reviewed and electronically signed by: LUCILA PICKENS MD on Aug 31 2024 3:01PM EST DIVISION OF RADIOLOGY * * *Final Report* * * DATE OF EXAM: Aug 31 2024 2:15PM [facility] 0508 - CT LUMBAR SPINE WO IVCON / PROCEDURE REASON: Radiculopathy of lumbar region * * * * Physician Interpretation * * * * EXAMINATION: CT LUMBAR SPINE WO IVCON CLINICAL HISTORY: Radiculopathy of lumbar region TECHNIQUE: Spiral, high resolution axial unenhanced images were obtained from the thoracolumbar junction to the sacrum with sagittal and coronal planar reconstructions. MQ: CTLSPWO_3 CT Radiation dose: Integrated Dose-Length Product (DLP) for this visit = 1205 mGy*cm. CT Dose Reduction Employed: Automated exposure control(AEC) and iterative recon COMPARISON: Lumbar spine CT 11/20/2023.. RESULT: Counting reference: Lumbosacral junction. For the purposes of this report, L4-5 is considered the level of the iliac crest and assume there are 5 lumbar-type vertebrae. Anatomic variant: None. Postoperative change: There are postoperative findings related to decompressive laminectomy at L4-5 and posterior fusion with transpedicular screws and vertical fusion rods at L4-5. There is subtle lucency around the left L5 transpedicular screw, which may represent loosening. The hardware is intact without fracture. Poultry Scientist (topogram) images: No significant findings. Alignment: There is minimal grade 1 anterolisthesis of L4 on L5. There is minimal retrolisthesis of L2 on L3. There is mild degenerative loss of interval disc space height at L1-L2, L2-3 and L5-S1 with vacuum disc phenomena at L5-S1 and mild degenerative loss at L4-5. Bone marrow /fracture: There is a intraosseous hemangioma in the T11 vertebral body. No evidence of a lytic or blastic process in the visualized spine. No evidence of acute or chronic fracture. Paraspinal soft tissues: The paraspinal soft tissues planes are maintained. Lower thoracic spine: The visualized lower thoracic bony canal and foramina are patent. L1-L2: Canal and foramina are patent. L2-L3: Canal and foramina are patent L3-L4: There is mild diffuse disc bulge and ligamentum flavum thickening resulting in at least mild spinal canal stenosis. There is no significant neural foraminal narrowing. L4-L5: The spinal canal is decompressed and appears patent. There is questionable mild bilateral neural foraminal narrowing, secondary to mild facet arthropathy and mild diffuse disc bulge. L5-S1: There is mild asymmetric diffuse disc bulge resulting in partial effacement of the right subarticular zone, and at least mild left and mild to moderate right neural foraminal narrowing. Sacrum and iliac wings: There is an intraosseous hemangioma in the mid aspect of the L1 sacrum. The visualized sacrum and iliac wings are otherwise within normal limits. DIVISION OF RADIOLOGY Provider, [facility] - 08/31/2024 * * *Final Report* * * DATE OF EXAM: Aug 31 2024 2:15PM [facility] 0508 - CT LUMBAR SPINE WO IVCON / PROCEDURE REASON: Radiculopathy of lumbar region * * * * Physician Interpretation * * * * EXAMINATION: CT LUMBAR SPINE WO IVCON CLINICAL HISTORY: Radiculopathy of lumbar region TECHNIQUE: Spiral, high resolution axial unenhanced images were obtained from the thoracolumbar junction to the sacrum with sagittal and coronal planar reconstructions. MQ: [id number] CT Radiation dose: Integrated Dose-Length Product (DLP) for this visit = 1205 mGy*cm. CT Dose Reduction Employed: Automated exposure control(AEC) and iterative recon COMPARISON: Lumbar spine CT 11/20/2023.. RESULT: Counting reference: Lumbosacral junction. For the purposes of this report, L4-5 is considered the level of the iliac crest and assume there are 5 lumbar-type vertebrae. Anatomic variant: None. Postoperative change: There are postoperative findings related to decompressive laminectomy at L4-5 and posterior fusion with transpedicular screws and vertical fusion rods at L4-5. There is subtle lucency around the left L5 transpedicular screw, which may represent loosening. The hardware is intact without fracture. Poultry Scientist (topogram) images: No significant findings. Alignment: There is minimal grade 1 anterolisthesis of L4 on L5. There is minimal retrolisthesis of L2 on L3. There is mild degenerative loss of interval disc space height at L1-L2, L2-3 and L5-S1 with vacuum disc phenomena at L5-S1 and mild degenerative loss at L4-5. Bone marrow /fracture: There is a intraosseous hemangioma in the T11 vertebral body. No evidence of a lytic or blastic process in the visualized spine. No evidence of acute or chronic fracture. Paraspinal soft tissues: The paraspinal soft tissues planes are maintained. Lower thoracic spine: The visualized lower thoracic bony canal and foramina are patent. L1-L2: Canal and foramina are patent. L2-L3: Canal and foramina are patent L3-L4: There is mild diffuse disc bulge and ligamentum flavum thickening resulting in at least mild spinal canal stenosis. There is no significant neural foraminal narrowing. L4-L5: The spinal canal is decompressed and appears patent. There is questionable mild bilateral neural foraminal narrowing, secondary to mild facet arthropathy and mild diffuse disc bulge. L5-S1: There is mild asymmetric diffuse disc bulge resulting in partial effacement of the right subarticular zone, and at least mild left and mild to moderate right neural foraminal narrowing. Sacrum and iliac wings: There is an intraosseous hemangioma in the mid aspect of the L1 sacrum. The visualized sacrum and iliac wings are otherwise within normal limits. IMPRESSION IMPRESSION: Postoperative changes and multilevel degenerative changes of the lumbar spine, as detailed. Subtle lucency around the left L5 transpedicular screw, which may represent loosening. The hardware is intact without fracture. Anatomic Lumbar Variant: None. L4-5 is considered the level of the iliac crest and assume there are 5 lumbar-type vertebrae. Fiberglass Model Maker: [facility] Transcribe Date/Time: Aug 31 2024 2:48P Dictated by : LUCILA PICKENS MD This examination was interpreted and the report reviewed and electronically signed by: LUCILA PICKENS MD on Aug 31 2024 3:01PM EST [facility] CT Lumbar spine WO contrastO rdered By: [facility] Provider on 08-31-2024 [facility] MR Lumbar spine WO and W con trast Obdulia 08-31-2024 IMPRESSION: Postoperative changes with decompressive laminectomy and fusion L4-L5. Edema and heterogeneous enhancing tissue in the paraspinal subcutaneous tissues, likely postoperative. No organized collection.. Multilevel degenerative changes of lumbar spine, as detailed. Anatomic Lumbar Variant: None. L4-5 is considered the level of the iliac crest and assume there are 5 lumbar-type vertebrae. Fiberglass Model Maker: [facility] Transcribe Date/Time: Aug 31 2024 3:10P Dictated by : WILLIAM CARNEY DO This examination was interpreted and the report reviewed and electronically signed by: LUCILA PICKENS MD on Aug 31 2024 3:48PM [facility] DIVISION OF RADIOLOGY * * *Final Report* * * DATE OF EXAM: Aug 31 2024 2:43PM [facility] 0304 - MRI LUMBAR SPINE WO/W IVCON / PROCEDURE REASON: Radiculopathy of lumbar region * * * * Physician Interpretation * * * * EXAMINATION: MRI LUMBAR SPINE WO/W IVCON CLINICAL HISTORY: Radiculopathy of lumbar region, status post L4-L5 fusion 10/2023 TECHNIQUE: Routine lumbosacral spine MR protocol without gadolinium. MQ: [id number] COMPARISON: Same day CT lumbar spine, 07/24/2023 MRI lumbar spine RESULT: Postoperative change: There is redemonstration of postoperative findings related to L4-L5 decompressive laminectomy and posterior fusion with transpedicular screws and vertical fusion rods, with associated susceptibility. Counting reference: Lumbosacral junction. For the purposes of this report, L4-5 is considered the level of the iliac crest and assume there are 5 lumbar-type vertebrae. Anatomic variant: None. Localizer images: Multiple left greater than right parapelvic cysts. Alignment: Alignment is anatomic. Normal lordosis. Minimal grade 1 anterolisthesis of L4 and L5. Bone marrow signal/fracture: No evidence of pathologic marrow infiltration. No evidence of prior fracture. Vertebral body heights are maintained. Mild disc space height loss at L2-L5 sequential levels and mild to moderate disc height loss at L5-S1. T11 vertebral body hemangioma which is partially imaged. Conus: The conus is within normal limits of signal intensity and morphology. Trace enhancement of the visualized nerve roots beyond the conus, notably the bilateral L4-S1 nerve roots, possibly postsurgical. Paraspinal soft tissues: Ill-defined edema and enhancing soft tissue within the posterior paraspinal subcutaneous tissues adjacent to the surgical bed, with additional intramuscular paraspinal edema spanning inferiorly from L4-S1. No organized collections. Lower thoracic spine: Visualized lower thoracic canal and foramina are patent. L1-L2: Canal and foramina are patent. L2-L3: Canal and foramina are patent. Broad posterior disc bulge and mild facet arthropathy. L3-L4: Posterior disc bulge with facet/ligamentous hypertrophy resulting in mild to moderate spinal canal stenosis, slightly progressed. There is no neural foraminal narrowing. L4-L5: Spinal canal is decompressed and patent. There is mild bilateral neural foraminal narrowing likely due to posterior disc uncovering and diffuse disc bulge as well as facet arthropathy L5-S1: Posterior disc bulge slightly eccentric to the left. This along with facet/ligament hypertrophy and diffuse disc bulge slightly eccentric to the right resulting in partial effacement of the right subarticular zone and contact of the right greater than left S1 descending nerve roots, mild left and mild to moderate right neural foraminal narrowing. No canal stenosis Sacrum and iliac wings: There is an S1 intraosseous hemangioma. The visualized sacrum and iliac wings are otherwise within normal limits. DIVISION OF RADIOLOGY Provider, [facility] - 08/31/2024 * * *Final Report* * * DATE OF EXAM: Aug 31 2024 2:43PM [facility] 0304 - MRI LUMBAR SPINE WO/W IVCON / PROCEDURE REASON: Radiculopathy of lumbar region * * * * Physician Interpretation * * * * EXAMINATION: MRI LUMBAR SPINE WO/W IVCON CLINICAL HISTORY: Radiculopathy of lumbar region, status post L4-L5 fusion 10/2023 TECHNIQUE: Routine lumbosacral spine MR protocol without gadolinium. MQ: [email or web address] COMPARISON: Same day CT lumbar spine, 07/24/2023 MRI lumbar spine RESULT: Postoperative change: There is redemonstration of postoperative findings related to L4-L5 decompressive laminectomy and posterior fusion with transpedicular screws and vertical fusion rods, with associated susceptibility. Counting reference: Lumbosacral junction. For the purposes of this report, L4-5 is considered the level of the iliac crest and assume there are 5 lumbar-type vertebrae. Anatomic variant: None. Localizer images: Multiple left greater than right parapelvic cysts. Alignment: Alignment is anatomic. Normal lordosis. Minimal grade 1 anterolisthesis of L4 and L5. Bone marrow signal/fracture: No evidence of pathologic marrow infiltration. No evidence of prior fracture. Vertebral body heights are maintained. Mild disc space height loss at L2-L5 sequential levels and mild to moderate disc height loss at L5-S1. T11 vertebral body hemangioma which is partially imaged. Conus: The conus is within normal limits of signal intensity and morphology. Trace enhancement of the visualized nerve roots beyond the conus, notably the bilateral L4-S1 nerve roots, possibly postsurgical. Paraspinal soft tissues: Ill-defined edema and enhancing soft tissue within the posterior paraspinal subcutaneous tissues adjacent to the surgical bed, with additional intramuscular paraspinal edema spanning inferiorly from L4-S1. No organized collections. Lower thoracic spine: Visualized lower thoracic canal and foramina are patent. L1-L2: Canal and foramina are patent. L2-L3: Canal and foramina are patent. Broad posterior disc bulge and mild facet arthropathy. L3-L4: Posterior disc bulge with facet/ligamentous hypertrophy resulting in mild to moderate spinal canal stenosis, slightly progressed. There is no neural foraminal narrowing. L4-L5: Spinal canal is decompressed and patent. There is mild bilateral neural foraminal narrowing likely due to posterior disc uncovering and diffuse disc bulge as well as facet arthropathy L5-S1: Posterior disc bulge slightly eccentric to the left. This along with facet/ligament hypertrophy and diffuse disc bulge slightly eccentric to the right resulting in partial effacement of the right subarticular zone and contact of the right greater than left S1 descending nerve roots, mild left and mild to moderate right neural foraminal narrowing. No canal stenosis Sacrum and iliac wings: There is an S1 intraosseous hemangioma. The visualized sacrum and iliac wings are otherwise within normal limits. IMPRESSION IMPRESSION: Postoperative changes with decompressive laminectomy and fusion L4-L5. Edema and heterogeneous enhancing tissue in the paraspinal subcutaneous tissues, likely postoperative. No organized collection.. Multilevel degenerative changes of lumbar spine, as detailed. Anatomic Lumbar Variant: None. L4-5 is considered the level of the iliac crest and assume there are 5 lumbar-type vertebrae. Fiberglass Model Maker: [facility] Transcribe Date/Time: Aug 31 2024 3:10P Dictated by : WILLIAM CARNEY DO This examination was interpreted and the report reviewed and electronically signed by: LUCILA PICKENS MD on Aug 31 2024 3:48PM EST [facility] MR Lumbar spine WO and W con trast IVOrdered By: [facility] Provider on 08-31-2024 [facility] MRI LUMBAR SPINE WO/W IVCONo n 08-31-2024 MRI LUMBAR SPINE WO/W IVCON * * *Final Report* * * DATE OF EXAM: Aug 31 2024 2:43PM [facility] 0304 - MRI LUMBAR SPINE WO/W IVCON / PROCEDURE REASON: Radiculopathy of lumbar region * * * * Physician Interpretation * * * * EXAMINATION: MRI LUMBAR SPINE WO/W IVCON CLINICAL HISTORY: Radiculopathy of lumbar region, status post L4-L5 fusion 10/2023 TECHNIQUE: Routine lumbosacral spine MR protocol without gadolinium. MQ: [email or web address] COMPARISON: Same day CT lumbar spine, 07/24/2023 MRI lumbar spine RESULT: Postoperative change: There is redemonstration of postoperative findings related to L4-L5 decompressive laminectomy and posterior fusion with transpedicular screws and vertical fusion rods, with associated susceptibility. Counting reference: Lumbosacral junction. For the purposes of this report, L4-5 is considered the level of the iliac crest and assume there are 5 lumbar-type vertebrae. Anatomic variant: None. Localizer images: Multiple left greater than right parapelvic cysts. Alignment: Alignment is anatomic. Normal lordosis. Minimal grade 1 anterolisthesis of L4 and L5. Bone marrow signal/fracture: No evidence of pathologic marrow infiltration. No evidence of prior fracture. Vertebral body heights are maintained. Mild disc space height loss at L2-L5 sequential levels and mild to moderate disc height loss at L5-S1. T11 vertebral body hemangioma which is partially imaged. Conus: The conus is within normal limits of signal intensity and morphology. Trace enhancement of the visualized nerve roots beyond the conus, notably the bilateral L4-S1 nerve roots, possibly postsurgical. Paraspinal soft tissues: Ill-defined edema and enhancing soft tissue within the posterior paraspinal subcutaneous tissues adjacent to the surgical bed, with additional intramuscular paraspinal edema spanning inferiorly from L4-S1. No organized collections. Lower thoracic spine: Visualized lower thoracic canal and foramina are patent. L1-L2: Canal and foramina are patent. L2-L3: Canal and foramina are patent. Broad posterior disc bulge and mild facet arthropathy. L3-L4: Posterior disc bulge with facet/ligamentous hypertrophy resulting in mild to moderate spinal canal stenosis, slightly progressed. There is no neural foraminal narrowing. L4-L5: Spinal canal is decompressed and patent. There is mild bilateral neural foraminal narrowing likely due to posterior disc uncovering and diffuse disc bulge as well as facet arthropathy L5-S1: Posterior disc bulge slightly eccentric to the left. This along with facet/ligament hypertrophy and diffuse disc bulge slightly eccentric to the right resulting in partial effacement of the right subarticular zone and contact of the right greater than left S1 descending nerve roots, mild left and mild to moderate right neural foraminal narrowing. No canal stenosis Sacrum and iliac wings: There is an S1 intraosseous hemangioma. The visualized sacrum and iliac wings are otherwise within normal limits. IMPRESSION: Postoperative changes with decompressive laminectomy and fusion L4-L5. Edema and heterogeneous enhancing tissue in the paraspinal subcutaneous tissues, likely postoperative. No organized collection.. Multilevel degenerative changes of lumbar spine, as detailed. Anatomic Lumbar Variant: None. L4-5 is considered the level of the iliac crest and assume there are 5 lumbar-type vertebrae. Fiberglass Model Maker: [employer] Transcribe Date/Time: Aug 31 2024 3:10P Dictated by : WILLIAM CARNEY, DO This examination was interpreted and the report reviewed and electronically signed by: LUCILA PICKENS MD on Aug 31 2024 3:48PM EST [id number] Normal [facility] No Panel Informationon 08-31 Radiology Study observation (narrative) [facility] CT Liver W contrast Obdulia IMPRESSION: No suspicious mass or adenopathy in the abdomen Mild intrahepatic and extrahepatic biliary dilatation. Likely due to prior cholecystectomy Fiberglass Model Maker: [facility] Transcribe Date/Time: Aug 18 2024 1:29P Dictated by : SARAH LENZ MD This examination was interpreted and the report reviewed and electronically signed by: SARAH LENZ MD on Aug 18 2024 1:38PM [facility] DIVISION OF RADIOLOGY * * *Final Report* * * DATE OF EXAM: Aug 11 2024 3:11PM [id number] - CT LIVER W IVCON / PROCEDURE REASON: multiple diagnoses * * * * Physician Interpretation * * * * EXAMINATION: CT ABDOMEN WITH IV CONTRAST (LIVER) CLINICAL HISTORY: Abnormal LFTs TECHNIQUE: Multiphase imaging of the abdomen was performed utilizing IV contrast. Contrast: IV: 125 ml of Omnipaque 350 Oral: none CT Radiation dose: Integrated Dose-length product (DLP) for this visit = 1111 mGy*cm. CT Dose Reduction Employed: Automated exposure control(AEC) and iterative recon COMPARISON: Ultrasound of 09/06/2022. RESULT: Liver: No focal abnormality or mass Pancreas: No mass or duct dilation. Biliary: Cholecystectomy. Mild intrahepatic and extrahepatic biliary dilatation. Common duct is 0.8 cm. Adrenals: No mass. Kidneys: Peripelvic renal cysts left greater than right. No suspicious renal lesion or gross obstructive uropathy GI tract: No dilation or wall thickening. Lymph nodes: No abdominal lymphadenopathy. Mesentery/Peritoneum: No ascites. No mass. Retroperitoneum: No mass. Vasculature: Patent. Atherosclerotic calcifications without aneurysm. SMA and BETTE are patent. Portal vein, splenic vein and superior mesenteric vein are patent. IVC and hepatic veins are patent Bones/Soft Tissues: T11 hemangioma. Bony structures are grossly intact. Pedicle plate and screw device transfixes L4 and L5. Lower thorax: Unremarkable. Localizer images: No additional findings. DIVISION OF RADIOLOGY Provider, [facility] Nnamdi [facility] - 08/18/2024 * * *Final Report* * * DATE OF EXAM: Aug 11 2024 3:11PM [facility] 0548 - CT LIVER W IVCON / PROCEDURE REASON: multiple diagnoses * * * * Physician Interpretation * * * * EXAMINATION: CT ABDOMEN WITH IV CONTRAST (LIVER) CLINICAL HISTORY: Abnormal LFTs TECHNIQUE: Multiphase imaging of the abdomen was performed utilizing IV contrast. Contrast: IV: 125 ml of Omnipaque 350 Oral: none CT Radiation dose: Integrated Dose-length product (DLP) for this visit = 1111 mGy*cm. CT Dose Reduction Employed: Automated exposure control(AEC) and iterative recon COMPARISON: Ultrasound of 09/06/2022. RESULT: Liver: No focal abnormality or mass Pancreas: No mass or duct dilation. Biliary: Cholecystectomy. Mild intrahepatic and extrahepatic biliary dilatation. Common duct is 0.8 cm. Adrenals: No mass. Kidneys: Peripelvic renal cysts left greater than right. No suspicious renal lesion or gross obstructive uropathy GI tract: No dilation or wall thickening. Lymph nodes: No abdominal lymphadenopathy. Mesentery/Peritoneum: No ascites. No mass. Retroperitoneum: No mass. Vasculature: Patent. Atherosclerotic calcifications without aneurysm. SMA and BETTE are patent. Portal vein, splenic vein and superior mesenteric vein are patent. IVC and hepatic veins are patent Bones/Soft Tissues: T11 hemangioma. Bony structures are grossly intact. Pedicle plate and screw device transfixes L4 and L5. Lower thorax: Unremarkable. Localizer images: No additional findings. IMPRESSION IMPRESSION: No suspicious mass or adenopathy in the abdomen Mild intrahepatic and extrahepatic biliary dilatation. Likely due to prior cholecystectomy Fiberglass Model [facility] Transcribe Date/Time: Aug 18 2024 1:29P Dictated by : SARAH LENZ MD This examination was interpreted and the report reviewed and electronically signed by: SARAH LENZ MD on Aug 18 2024 1:38PM EST [facility] CT Liver W contrast IVOrdere d By: [facility] Provider on 08-18-2024 [facility] Carlos [facility]20[facility] BRENT MOSQUEDA ([id number]) 1950 F Date Time Provider Department 08/17/24 DEVORAH SALAZAR GSTNOR During your visit today, we recorded the following information about you: Puneet Gaspar 08/17/2024 9:33 AM Signed Our office received a referral through page hospital portal for a consult for Alkaline phosphatase elevation from Dr. Ny LM Allergies As of Date: 08/17/2024 (No Known Allergies) Date Reviewed: 08/10/2024 Reviewed by: Kayla Barkley MA - Fully Assessed Reason for Visit: Appointment [[id number]] Prescriptions as of 09/01/2024 - DULoxetine (CYMBALTA) 60 mg capsule TAKE ONE CAPSULE BY MOUTH EVERY DAY - hydrOXYzine HCl (ATARAX) 25 mg tablet TAKE ONE TABLET BY MOUTH THREE TIMES A DAY NEEDED - atorvastatin (LIPITOR) 20 mg tablet Take 1 tablet by mouth once daily. - Bifidobacterium Infantis (ALIGN, B.INFANTIS,) 4 mg cap Take 1 capsule by mouth once daily. - carBAMazepine XR (TEGRETOL XR) 100 mg 12 hr tablet Take 1 tablet by mouth two times a day for 7 days, THEN 2 tablets two times a day. - pregabalin (LYRICA) 100 mg capsule Take 1 capsule by mouth three times a day. - metoprolol succinate ER (TOPROL XL) 25 mg 24 hr tablet Take 1 tablet by mouth every afternoon. - ascorbic acid, vitamin C, (VITAMIN C) 500 mg tablet Take 1 tablet by mouth once daily. - vit C/E/Zn/coppr/lutein/ada jennifer (PRESERVISION AREDS-2 ORAL) Take 1 tablet by mouth twice daily. Problem List As Of Date 08/17/2024 Noted Resolved MERLYN (generalized anxiety disorder) [F41.1] 07/11/2021 07/15/2023 Contusion of coccyx [S30.0XXA] 07/11/2021 07/15/2023 Chronic left shoulder pain [M25.512, G89.29] 07/11/2021 Foot pain, right [M79.671] 08/28/2022 07/15/2023 Palpitations [R00.2] 12/05/2022 VELÁZQUEZ (dyspnea on exertion) [R06.09] 01/17/2023 PVC (premature ventricular contraction) [I49.3] 01/17/2023 Postoperative pain [G89.18] 02/14/2023 07/15/2023 Anxiety with depression [F41.8] 05/20/2023 Fibromyalgia [M79.7] 05/20/2023 Elevated liver enzymes [R74.8] 05/20/2023 Chronic joint pain [M25.50, G89.29] 07/27/2023 Spinal stenosis of lumbar region with neurogeni*07/27/2023 Generalized osteoarthrosis [M15.9] 08/04/2023 Recurrent falls while walking [R29.6] 08/04/2023 Lumbar radiculopathy [M54.16] 08/24/2023 Preop examination [Z01.818] 11/07/2023 S/P lumbar fusion [Z98.1] 11/20/2023 Trigeminal neuralgia [G50.0] 06/20/2024 Elevated LFTs [R79.89] 06/28/2024 Hiatal hernia [K44.9] 07/05/2024 Chronic gastritis without bleeding [K29.50] 07/05/2024 Encounter Status:Closed by PUNEET GASPAR on 09/01/24 [facility] 08-13-2024 [facility] BRENT MOSQUEDA ([id number]) 1950 F Date Time Provider Department 08/13/24 PORTIA CALHOUN FPDOYL During your visit today, we recorded the following information about you: Karson Harper 08/13/2024 10:25 AM Signed Consult to Gastroenterology Alkaline phosphatase elevation Confirmation number: [id number] Karson Harper Allergies As of Date: 08/13/2024 (No Known Allergies) Date Reviewed: 08/10/2024 Reviewed by: Kayla Barkley MA - Fully Assessed Reason for Visit: Consult [502] Cmt: Consult to Gastroenterology Alkaline phosphatase elevation Confirmation number: [id number] Prescriptions as of 08/13/2024 - hydrOXYzine HCl (ATARAX) 25 mg tablet TAKE ONE TABLET BY MOUTH THREE TIMES A DAY NEEDED - atorvastatin (LIPITOR) 20 mg tablet Take 1 tablet by mouth once daily. - Bifidobacterium Infantis (ALIGN, B.INFANTIS,) 4 mg cap Take 1 capsule by mouth once daily. - carBAMazepine XR (TEGRETOL XR) 100 mg 12 hr tablet Take 1 tablet by mouth two times a day for 7 days, THEN 2 tablets two times a day. - pregabalin (LYRICA) 100 mg capsule Take 1 capsule by mouth three times a day. - metoprolol succinate ER (TOPROL XL) 25 mg 24 hr tablet Take 1 tablet by mouth every afternoon. - DULoxetine (CYMBALTA) 60 mg capsule Take 1 capsule by mouth once daily. - ascorbic acid, vitamin C, (VITAMIN C) 500 mg tablet Take 1 tablet by mouth once daily. - vit C/E/Zn/coppr/lutein/ada jennifer (PRESERVISION AREDS-2 ORAL) Take 1 tablet by mouth twice daily. Problem List As Of Date 08/13/2024 Noted Resolved MERLYN (generalized anxiety disorder) [F41.1] 07/11/2021 07/15/2023 Contusion of coccyx [S30.0XXA] 07/11/2021 07/15/2023 Chronic left shoulder pain [M25.512, G89.29] 07/11/2021 Foot pain, right [M79.671] 08/28/2022 07/15/2023 Palpitations [R00.2] 12/05/2022 VELÁZQUEZ (dyspnea on exertion) [R06.09] 01/17/2023 PVC (premature ventricular contraction) [I49.3] 01/17/2023 Postoperative pain [G89.18] 02/14/2023 07/15/2023 Anxiety with depression [F41.8] 05/20/2023 Fibromyalgia [M79.7] 05/20/2023 Elevated liver enzymes [R74.8] 05/20/2023 Chronic joint pain [M25.50, G89.29] 07/27/2023 Spinal stenosis of lumbar region with neurogeni*07/27/2023 Generalized osteoarthrosis [M15.9] 08/04/2023 Recurrent falls while walking [R29.6] 08/04/2023 Lumbar radiculopathy [M54.16] 08/24/2023 Preop examination [Z01.818] 11/07/2023 S/P lumbar fusion [Z98.1] 11/20/2023 Trigeminal neuralgia [G50.0] 06/20/2024 Elevated LFTs [R79.89] 06/28/2024 Hiatal hernia [K44.9] 07/05/2024 Chronic gastritis without bleeding [K29.50] 07/05/2024 Encounter Status:Closed by KARSON HARPER on 08/13/24 Normal [facility] ALKALINE PHOSPHATASE ISOENZY MES (P)on 08-11-2024 ALK PHOS BONE % 32.2 % Normal 10.7-68.3 [facility] Comment on above: Order Comment: Speci men Type: BLOOD SPECIMENOrdering Facility: [facility] Address: [address] [place] [address] Performed By: #### A LKISOP ####[facility] [facility] [id number] [place] [address] [place] ALK PHOS LIVER % 67.8 % Normal 26.0-86.2 [facility] Comment on above: Order Comment: Speci men Type: BLOOD SPECIMENOrdering Facility: [facility] Address: [address] [place] [address] Performed By: #### A LKISOP ####[facility] LABCLIA [id number] [place] [address] [place] BONE FRACTION 56.4 U/L High 12.9-52.6 [facility] Comment on above: Order Comment: Speci men Type: BLOOD SPECIMENOrdering Facility: [facility] Address: [address] [place] [address] Performed By: #### A LKISOP ####[facility] LABIA [id number] [place] [address] [place] INTESTINE FRACTION 0.0 U/L Normal 0.0-16.3 [facility] Comment on above: Order Comment: Speci men Type: BLOOD SPECIMENOrdering Facility: [facility] Address: [address] [place] [address] Performed By: #### A LKISOP ####[facility] LABCLIA [id number] [place] [address] [place] LIVER FRACTION 118.7 U/L High 16.0-69.3 [facility] Comment on above: Order Comment: Speci men Type: BLOOD SPECIMENOrdering Facility: [facility] Address: [address] [place] [address] Performed By: #### A LKISOP ####[facility] LABCLIA [id number] [place] [address] [place] Neutrophils/100 WBC (Bld) 0.0 % Normal 0.0-24.2 [facility] Comment on above: Order Comment: Speci men Type: BLOOD SPECIMENOrdering Facility: [facility] Address: [address] [place] [address] Performed By: #### A LKISOP ####[facility] LABCLIA [id number] [place] [address] [place] ALP SerPl-cCncon 08-11-2024 ALP [Catalytic activity/Vol] 175 U/L High 34-123 [facility] Comment on above: Order Comment: Speci men Type: BLOOD SPECIMENOrdering Facility: [facility] Address: [address] [place] [address] Performed By: #### 6 768-6 ####[facility] LABIA [id number] [place] [address] [place] CREATININE BLDon 08-11-2024 Creatinine [Mass/Vol] 0.62 mg/dL Normal 0.58-0.96 [facility] Comment on above: Order Comment: Speci men Type: BLOOD SPECIMENOrdering Facility: [facility] Address: [address] [place] [address] Performed By: #### C RET1 ####[facility] [id number] [place] [address] [place] Creatinine and Glomerular filtration rate.predicted panel (S/P/Bld) 95 mL/min/1.73m??? Normal >=60 [facility] Comment on above: Order Comment: Speci men Type: BLOOD SPECIMENOrdering Facility: [facility] Address: [address] [place] [address] Result Comment: Angelica mated Glomerular Filtration Rate (eGFR) is calculated using the 2020 CKD-EPI creatinine equation. This equation utilizes serum creatinine, sex, and age as parameters. The creatinine assay has traceable calibration to isotope dilution-mass spectrometry. Refer to KDIGO guidelines for clinical interpretation. In patients with unstable renal function, e.g. those with acute kidney injury, the eGFR may not accurately reflect actual GFR. Performed By: #### C RET1 ####[facility] [id number] [place] [address] [place] CT LIVER W IVCONon 5 CT LIVER W IVCON * * *Final Report* * * DATE OF EXAM: Aug 11 2024 3:11PM [facility] 0548 - CT LIVER W IVCON / PROCEDURE REASON: multiple diagnoses * * * * Physician Interpretation * * * * EXAMINATION: CT ABDOMEN WITH IV CONTRAST (LIVER) CLINICAL HISTORY: Abnormal LFTs TECHNIQUE: Multiphase imaging of the abdomen was performed utilizing IV contrast. Contrast: IV: 125 ml of Omnipaque 350 Oral: none CT Radiation dose: Integrated Dose-length product (DLP) for this visit = 1111 mGy*cm. CT Dose Reduction Employed: Automated exposure control(AEC) and iterative recon COMPARISON: Ultrasound of 09/06/2022. RESULT: Liver: No focal abnormality or mass Pancreas: No mass or duct dilation. Biliary: Cholecystectomy. Mild intrahepatic and extrahepatic biliary dilatation. Common duct is 0.8 cm. Adrenals: No mass. Kidneys: Peripelvic renal cysts left greater than right. No suspicious renal lesion or gross obstructive uropathy GI tract: No dilation or wall thickening. Lymph nodes: No abdominal lymphadenopathy. Mesentery/Peritoneum: No ascites. No mass. Retroperitoneum: No mass. Vasculature: Patent. Atherosclerotic calcifications without aneurysm. SMA and BETTE are patent. Portal vein, splenic vein and superior mesenteric vein are patent. IVC and hepatic veins are patent Bones/Soft Tissues: T11 hemangioma. Bony structures are grossly intact. Pedicle plate and screw device transfixes L4 and L5. Lower thorax: Unremarkable. Localizer images: No additional findings. IMPRESSION: No suspicious mass or adenopathy in the abdomen Mild intrahepatic and extrahepatic biliary dilatation. Likely due to prior cholecystectomy Fiberglass Model Maker: PSCB Transcribe Date/Time: Aug 18 2024 1:29P Dictated by : SARAH LENZ MD This examination was interpreted and the report reviewed and electronically signed by: SARAH LENZ MD on Aug 18 2024 1:38PM EST [id number] Normal [facility] CT Liver W contrast Obdulia Radiology Study observation (narrative) [facility] Creatinine and Glomerular fi ltration rate.predicted panel (S/P/Bld)Ordered By: Linda Armstrong on 08-11-2024 Creatinine [Mass/Vol] 0.62 mg/dL 0.58 - 0.96 mg/dL [facility] GFR/1.73 sq M.predicted among non-blacks MDRD (S/P/Bld) [Vol rate/Area] 95 mL/min/{1.73_m2} - PINF [facility] Comment on above: Estimated Glomerular Filtration Rate (eGFR) is calculated using the 2020 CKD-EPI creatinine equation. This equation utilizes serum creatinine, sex, and age as parameters. The creatinine assay has traceable calibration to isotope dilution-mass spectrometry. Refer to KDIGO guidelines for clinical interpretation. In patients with unstable renal function, e.g. those with acute kidney injury, the eGFR may not accurately reflect actual GFR. Interpretation and review of laboratory results Normal [facility] CNOVon 08-10-2024 CNOV Office Visit (AGOCMR ) BRENT MOSQUEDA ([id number]) 1950 F Date Time Provider Department 08/10/24 1:15 PM STEPHEN RIZO [facility] During your visit today, we recorded the following information about you: Pulse Blood pressure Weight Height 74/minute 114/75 82.5 kg 1.575 m Stephen Rizo DO 08/10/2024 2:07 PM Signed Stephen Rizo DO [facility] Orthopedics - Orthopedic Spine Surgeon [address] [facility] [address] [address] [place] [address] Phone: [phone] ([phone]) FAX: [phone] SPINE SURGERY OUTPATIENT CONSULT SERVICE DATE: 08/10/2024 LAST OFFICE VISIT: 05/11/2024 DATE OF : 1950 REFERRING PROVIDER: No referring provider defined for this encounter. CHIEF COMPLAINT: SURGERY: L4-L5 posterior spinal fusion 11/20/2023 PREOPERATIVE SYMPTOMS: severe bilateral leg pain HISTORY OF PRESENT ILLNESS Brent Mosqueda is a 74 year old female presenting alone. She was last evaluated in office on 05/11/2024 for ongoing bilateral low back pain that worsened over the last 3 months. She stated pain started in her bilateral low back with radiation down the anterior aspect of her bilateral thighs extending to the knees. She stated today the lateral aspect of her right hip was most bothersome. She reported the pain was across her back and not centered over the SI joints. She noted her left knee felt weak at times and felt like it was going to give out when ambulating. She denied any loss of bowel or bladder function. She reported treating her symptoms with oral medications with minimal relief. Radiographic imaging of the lumbar spine displayed an L4-5 posterolateral fusion with hardware in stable position. Early fusion mass is seen bilaterally. Radiographic imaging showed early fusion mass forming bilaterally at L4-5. It was discussed that it is still possible she could be developing a pseudoarthrosis at the L4-5 segment. It was recommended for a full course of physical therapy to treat her back pain and bilateral leg pain and to follow-up once completed. Today she reports worsening pain since participating in physical therapy. She notes pain starts in her bilateral low back with radiation to entire bilateral lower extremities, left side worse than right. She states it feels like her left leg is giving out when ambulating. Endorses bilateral lower extremity weakness. She reported falling down 2 steps due to her left leg giving out. She states she is having difficulty sleeping at night due to her leg pain. Denies any paresthesia. Denies loss of bowel or bladder function. She states that the pain starts in her low back and travels down her legs. States that the worst pain is in her low back. She presents for evaluation, image review and plan of care. 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 Rizo REMOVAL GALLBLADDER FAMILY HISTORY Problem Relation Age of Onset other (multiple myeloma) Mother COPD Father No Known Problems Sister No Known Problems Brother No Known Problems Brother Colon Cancer No Family History Social History Tobacco Use Smoking status: Never Passive exposure: Never Smokeless tobacco: Never Vaping Use Vaping status: Never Used Substance Use Topics Alcohol use: Not Currently Comment: rare occassion Drug use: Never ALLERGIES No Known Allergies MEDICATIONS: hydrOXYzine HCl (ATARAX) 25 mg tablet TAKE ONE TABLET BY MOUTH THREE TIMES A DAY NEEDED atorvastatin (LIPITOR) 20 mg tablet Take 1 tablet by mouth once daily. Bifidobacterium Infantis (ALIGN, B.INFANTIS,) 4 mg cap Take 1 capsule by mouth once daily. carBAMazepine XR (TEGRETOL XR) 100 mg 12 hr tablet Take 1 tablet by mouth two times a day for 7 days, THEN 2 tablets two times a day. pregabalin (LYRICA) 100 mg capsule Take 1 capsule by mouth three times a day. metoprolol succinate ER (TOPROL XL) 25 mg 24 hr (more content not included)... Normal [facility] XR LUMBAR 2V AP/LATon 2024 XR LUMBAR 2V AP/LAT * * *Final Report* * * DATE OF EXAM: Aug 10 2024 1:09PM A1X 5229 - XR LUMBAR 2V AP/LAT / PROCEDURE REASON: S/P lumbar fusion * * * * Physician Interpretation * * * * EXAMINATION: XR LUMBAR 2V AP/LAT HISTORY: S/P OP 11/20/2023, increased low back pain, leg weakness ans pain S/P lumbar fusion . COMPARISON: Lumbar spine radiographs 05/11/2024 TECHNIQUE: XR LUMBAR 2V AP/LAT Laterality: NOT APPLICABLE Number of different views (projections): 2 M: XB_1 FINDINGS: Postsurgical changes of L4-5 posterior fusion. Stable alignment. Vertebral body heights are maintained. IMPRESSION: L4-5 fusion. Fiberglass Model Maker: DESTIN Transcribe Date/Time: Aug 13 2024 1:50P Dictated by : JOURDAN ISBELL MD This examination was interpreted and the report reviewed and electronically signed by: JOURDAN ISBELL MD on Aug 13 2024 1:55PM EST [id number] Normal [facility] CNCOon 07-21-2024 CNCO Letter Text Normal [facility] CNPNon 07-19-2024 CNPN Telephone (GSTNOR) BRENT MOSQUEDA ([id number]) 1950 F Date Time Provider Department 07/19/24 DEVORAH SALAZAR During your visit today, we recorded the following information about you: Cyndi Carlin Tech 07/19/2024 4:00 PM Signed Patient would like a call back regarding her lab results. Leann Ling MA 07/20/2024 11:02 AM Signed LVMTCB Leann Ling MA 07/21/2024 10:05 AM Signed LVMTCB Leann Ling MA 07/21/2024 4:18 PM Signed Letter sent Allergies As of Date: 07/19/2024 (No Known Allergies) Date Reviewed: 07/05/2024 Reviewed by: Susan Rao RN - Fully Assessed Reason for Visit: Results [95] Cmt: Lab results Prescriptions as of 07/21/2024 - atorvastatin (LIPITOR) 20 mg tablet Take 1 tablet by mouth once daily. - Bifidobacterium Infantis (ALIGN, B.INFANTIS,) 4 mg cap Take 1 capsule by mouth once daily. - carBAMazepine XR (TEGRETOL XR) 100 mg 12 hr tablet Take 1 tablet by mouth two times a day for 7 days, THEN 2 tablets two times a day. - pregabalin (LYRICA) 100 mg capsule Take 1 capsule by mouth three times a day. - metoprolol succinate ER (TOPROL XL) 25 mg 24 hr tablet Take 1 tablet by mouth every afternoon. - hydrOXYzine HCl (ATARAX) 25 mg tablet take one tablet by mouth three times a day as needed - DULoxetine (CYMBALTA) 60 mg capsule Take 1 capsule by mouth once daily. - ascorbic acid, vitamin C, (VITAMIN C) 500 mg tablet Take 1 tablet by mouth once daily. - vit C/E/Zn/coppr/lutein/ada jennifer (PRESERVISION AREDS-2 ORAL) Take 1 tablet by mouth twice daily. Problem List As Of Date 07/19/2024 Noted Resolved MERLYN (generalized anxiety disorder) [F41.1] 07/11/2021 07/15/2023 Contusion of coccyx [S30.0XXA] 07/11/2021 07/15/2023 Chronic left shoulder pain [M25.512, G89.29] 07/11/2021 Foot pain, right [M79.671] 08/28/2022 07/15/2023 Palpitations [R00.2] 12/05/2022 VELÁZQUEZ (dyspnea on exertion) [R06.09] 01/17/2023 PVC (premature ventricular contraction) [I49.3] 01/17/2023 Postoperative pain [G89.18] 02/14/2023 07/15/2023 Anxiety with depression [F41.8] 05/20/2023 Fibromyalgia [M79.7] 05/20/2023 Elevated liver enzymes [R74.8] 05/20/2023 Chronic joint pain [M25.50, G89.29] 07/27/2023 Spinal stenosis of lumbar region with neurogeni*07/27/2023 Generalized osteoarthrosis [M15.9] 08/04/2023 Recurrent falls while walking [R29.6] 08/04/2023 Lumbar radiculopathy [M54.16] 08/24/2023 Preop examination [Z01.818] 11/07/2023 S/P lumbar fusion [Z98.1] 11/20/2023 Trigeminal neuralgia [G50.0] 06/20/2024 Elevated LFTs [R79.89] 06/28/2024 Hiatal hernia [K44.9] 07/05/2024 Chronic gastritis without bleeding [K29.50] 07/05/2024 Encounter Status:Closed by LEANN LING on 07/21/24 Normal [facility] ALKALINE PHOSPHATASE ISOENZY MES (P)on 07-13-2024 ALK PHOS BONE % 26.4 % Normal 10.7-68.3 [facility] Comment on above: Order Comment: Speci men Type: BLOOD SPECIMENOrdering Facility: [facility] Address: [address] [place] [address] Performed By: #### A LKISOP ####[facility] LABCLIA [id number] [place] [address] [place] ALK PHOS LIVER % 73.6 % Normal 26.0-86.2 [facility] Comment on above: Order Comment: Speci men Type: BLOOD SPECIMENOrdering Facility: [facility] Address: [address] [place] [address] Performed By: #### A LKISOP ####[facility] LABCLIA [id number] [address] [place] BONE FRACTION 45.4 U/L Normal 12.9-52.6 [facility] Comment on above: Order Comment: Speci men Type: BLOOD SPECIMENOrdering Facility: [facility] Address: [address] [place] [address] Performed By: #### A LKISOP ####[facility] LABIA [id number] [place] [address] [place] INTESTINE FRACTION 0.0 U/L Normal 0.0-16.3 [facility] Comment on above: Order Comment: Speci men Type: BLOOD SPECIMENOrdering Facility: [facility] Address: [address] [place] [address] Performed By: #### A LKISOP ####[facility] LABIA [id number] [place] [address] [place] LIVER FRACTION 126.6 U/L High 16.0-69.3 [facility] Comment on above: Order Comment: Speci men Type: BLOOD SPECIMENOrdering Facility: [facility] Address: [address] [place] [address] Performed By: #### A LKISOP ####[facility] LABIA [id number] [address] [place] Neutrophils/100 WBC (Bld) 0.0 % Normal 0.0-24.2 [facility] Comment on above: Order Comment: Speci men Type: BLOOD SPECIMENOrdering Facility: [facility] Address: [address] [place] [address] Performed By: #### A LKISOP ####[facility] LABIA [id number] [place] [address] [place] ALP SerPl-cCncon 07-13-2024 ALP [Catalytic activity/Vol] 174 U/L High 34-123 [facility] Comment on above: Order Comment: Speci men Type: BLOOD SPECIMENOrdering Facility: [facility] Address: [address] [place] [address] Performed By: #### 6 768-6 ####[facility] LABCLIA [id number] [facility] [id number] [place] CNPNon 07-13-2024 CNPN Telephone (AGGASTACC ) BRENT MOSQUEDA ([id number]) 1950 F Date Time Provider Department 07/13/24 [facility] PROVIDER AGGASTACC During your visit today, we recorded the following information about you: Chantell, Joana 07/13/2024 3:30 PM Signed Pt. Update 07.13.24- Gastro. Call left message Note: consult to GI: Abnormal liver enzymes Chantell Joana 07/14/2024 11:29 AM Signed Pt. Update 07.14.24- 2nd call left message Allergies As of Date: 07/13/2024 (No Known Allergies) Date Reviewed: 07/05/2024 Reviewed by: Susan Rao RN - Fully Assessed Reason for Visit: Patient Update [1234] Prescriptions as of 07/14/2024 - atorvastatin (LIPITOR) 20 mg tablet Take 1 tablet by mouth once daily. - Bifidobacterium Infantis (ALIGN, B.INFANTIS,) 4 mg cap Take 1 capsule by mouth once daily. - carBAMazepine XR (TEGRETOL XR) 100 mg 12 hr tablet Take 1 tablet by mouth two times a day for 7 days, THEN 2 tablets two times a day. - pregabalin (LYRICA) 100 mg capsule Take 1 capsule by mouth three times a day. - metoprolol succinate ER (TOPROL XL) 25 mg 24 hr tablet Take 1 tablet by mouth every afternoon. - hydrOXYzine HCl (ATARAX) 25 mg tablet take one tablet by mouth three times a day as needed - DULoxetine (CYMBALTA) 60 mg capsule Take 1 capsule by mouth once daily. - ascorbic acid, vitamin C, (VITAMIN C) 500 mg tablet Take 1 tablet by mouth once daily. - vit C/E/Zn/coppr/lutein/ada jennifer (PRESERVISION AREDS-2 ORAL) Take 1 tablet by mouth twice daily. Problem List As Of Date 07/13/2024 Noted Resolved MERLYN (generalized anxiety disorder) [F41.1] 07/11/2021 07/15/2023 Contusion of coccyx [S30.0XXA] 07/11/2021 07/15/2023 Chronic left shoulder pain [M25.512, G89.29] 07/11/2021 Foot pain, right [M79.671] 08/28/2022 07/15/2023 Palpitations [R00.2] 12/05/2022 VELÁZQUEZ (dyspnea on exertion) [R06.09] 01/17/2023 PVC (premature ventricular contraction) [I49.3] 01/17/2023 Postoperative pain [G89.18] 02/14/2023 07/15/2023 Anxiety with depression [F41.8] 05/20/2023 Fibromyalgia [M79.7] 05/20/2023 Elevated liver enzymes [R74.8] 05/20/2023 Chronic joint pain [M25.50, G89.29] 07/27/2023 Spinal stenosis of lumbar region with neurogeni*07/27/2023 Generalized osteoarthrosis [M15.9] 08/04/2023 Recurrent falls while walking [R29.6] 08/04/2023 Lumbar radiculopathy [M54.16] 08/24/2023 Preop examination [Z01.818] 11/07/2023 S/P lumbar fusion [Z98.1] 11/20/2023 Trigeminal neuralgia [G50.0] 06/20/2024 Elevated LFTs [R79.89] 06/28/2024 Hiatal hernia [K44.9] 07/05/2024 Chronic gastritis without bleeding [K29.50] 07/05/2024 Encounter Status:Closed by JOANA ABDUL on 07/13/24 [facility] CNPN Telephone ([facility]) BRENT MOQSUEDA ([id number]) 1950 F Date Time Provider Department 07/13/24 PORTIA CALHOUN [facility] During your visit today, we recorded the following information about you: Karson Harper 07/13/2024 12:15 PM Signed Consult to Gastroenterology Abnormal liver enzymes Confirmation number: [id number] Karson Harper Allergies As of Date: 07/13/2024 (No Known Allergies) Date Reviewed: 07/05/2024 Reviewed by: Susan Rao, RN - Fully Assessed Reason for Visit: Consult [502] Cmt: Consult to Gastroenterology Abnormal liver enzymes Confirmation number: [id number] Prescriptions as of 07/13/2024 - atorvastatin (LIPITOR) 20 mg tablet Take 1 tablet by mouth once daily. - Bifidobacterium Infantis (ALIGN, B.INFANTIS,) 4 mg cap Take 1 capsule by mouth once daily. - carBAMazepine XR (TEGRETOL XR) 100 mg 12 hr tablet Take 1 tablet by mouth two times a day for 7 days, THEN 2 tablets two times a day. - pregabalin (LYRICA) 100 mg capsule Take 1 capsule by mouth three times a day. - metoprolol succinate ER (TOPROL XL) 25 mg 24 hr tablet Take 1 tablet by mouth every afternoon. - hydrOXYzine HCl (ATARAX) 25 mg tablet take one tablet by mouth three times a day as needed - DULoxetine (CYMBALTA) 60 mg capsule Take 1 capsule by mouth once daily. - ascorbic acid, vitamin C, (VITAMIN C) 500 mg tablet Take 1 tablet by mouth once daily. - vit C/E/Zn/coppr/lutein/ada jennifer (PRESERVISION AREDS-2 ORAL) Take 1 tablet by mouth twice daily. Problem List As Of Date 07/13/2024 Noted Resolved MERLYN (generalized anxiety disorder) [F41.1] 07/11/2021 07/15/2023 Contusion of coccyx [S30.0XXA] 07/11/2021 07/15/2023 Chronic left shoulder pain [M25.512, G89.29] 07/11/2021 Foot pain, right [M79.671] 08/28/2022 07/15/2023 Palpitations [R00.2] 12/05/2022 VELÁZQUEZ (dyspnea on exertion) [R06.09] 01/17/2023 PVC (premature ventricular contraction) [I49.3] 01/17/2023 Postoperative pain [G89.18] 02/14/2023 07/15/2023 Anxiety with depression [F41.8] 05/20/2023 Fibromyalgia [M79.7] 05/20/2023 Elevated liver enzymes [R74.8] 05/20/2023 Chronic joint pain [M25.50, G89.29] 07/27/2023 Spinal stenosis of lumbar region with neurogeni*07/27/2023 Generalized osteoarthrosis [M15.9] 08/04/2023 Recurrent falls while walking [R29.6] 08/04/2023 Lumbar radiculopathy [M54.16] 08/24/2023 Preop examination [Z01.818] 11/07/2023 S/P lumbar fusion [Z98.1] 11/20/2023 Trigeminal neuralgia [G50.0] 06/20/2024 Elevated LFTs [R79.89] 06/28/2024 Hiatal hernia [K44.9] 07/05/2024 Chronic gastritis without bleeding [K29.50] 07/05/2024 Encounter Status:Closed by KARSON HARPER on 07/13/24 Normal [facility] CORTISOL BY LC-MS/MS, SERUM OR PLASMAon 07-13-2024 CORTISOL BY LC-MS/MS, SERUM OR PLASMA 8.2 ug/dL Normal [facility] Comment on above: Order Comment: Speci men Type: BLOOD SPECIMENOrdering Facility: [facility] Address: [facility] [place] [facility] [place] [address] Result Comment: INTE RPRETIVE INFORMATION: Cortisol by LC-MS/MS, Serum or Plasma Adult, Male and Female, Reference Ranges for Cortisol, Serum, ug/dL AM..................... 4.6-20.6 PM..................... 1.8-13.6 Stimulation 30-60 Minutes Post 0.25 mg Cosyntropin IV ....................... Greater than 20.0 Pediatric Reference Ranges for Cortisol, Serum, ug/dL - AM 1-12 months............ 4.6-23.0 1-5 years.............. 6.0-25.0 6-17 years............. 4.6-15.0 Stimulation 30-60 Minutes Post 0.25 mg Cosyntropin IV 1-12 months............ 32.0-60.0 1-5 years.............. 22.0-40.0 6-17 years............. 17.0-28.0 This test was developed and its performance characteristics determined by [employer] It has not been cleared or approved by the [place] Food and Drug Administration. This test was performed in a CLIA certified laboratory and is intended for clinical purposes. Performed By: [facility] [employer] [address] [place] [address] Straight Pin Making Machine Operator: Didier Hendricks MD, PhD CLIA Number: [id number] Performed By: #### P BAN ####[facility] [id number] [place] [address] Hepatic function 2000 panelo n 07-13-2024 Albumin [Mass/Vol] 4.2 g/dL Normal 3.9-4.9 [facility] Comment on above: Order Comment: Speci men Type: BLOOD SPECIMENOrdering Facility: [facility] Address: [address] [place] [address] Performed By: #### 2 4325-3 ####[facility] MARY KATE RUDOLPHTOWNCLIA [id number] [place] [address] [place] ALP [Catalytic activity/Vol] 172 U/L High 34-123 [facility] Comment on above: Order Comment: Speci men Type: BLOOD SPECIMENOrdering Facility: [facility] Address: [address] [place] [address] Performed By: #### 2 4325-3 ####[facility] MARY KATE MILLTOWNCLIA [id number] [place] [address] [place] ALT [Catalytic activity/Vol] 17 U/L Normal 7-38 [facility] Comment on above: Order Comment: Speci men Type: BLOOD SPECIMENOrdering Facility: [facility] Address: [address] [place] [address] Performed By: #### 2 4325-3 ####[facility] ALEXWNCLIA [id number] [place] [address] [place] AST [Catalytic activity/Vol] 21 U/L Normal 13-35 [facility] Comment on above: Order Comment: Speci men Type: BLOOD SPECIMENOrdering Facility: [facility] Address: [address] [place] [address] Performed By: #### 2 4325-3 ####[facility] MARY KATE MILLTOWNCLIA [id number] [place] [address] [place] Bilirubin [Mass/Vol] 0.3 mg/dL Normal 0.2-1.3 [facility] Comment on above: Order Comment: Speci men Type: BLOOD SPECIMENOrdering Facility: [facility] Address: [address] [place] [address] Performed By: #### 2 4325-3 ####[facility] [id number] [place] [address] [place] Bilirubin.conjugated [Mass/Vol] 0.1 mg/dL Normal <0.3 [facility] Comment on above: Order Comment: Speci men Type: BLOOD SPECIMENOrdering Facility: [facility] Address: [address] [place] [address] Performed By: #### 2 4325-3 ####[facility] [id number] [place] [address] [place] Protein [Mass/Vol] 7.2 g/dL Normal 6.3-8.0 [facility] Comment on above: Order Comment: Speci men Type: BLOOD SPECIMENOrdering Facility: [facility] Address: [address] [place] [address] Performed By: #### 2 4325-3 ####[facility] [id number] [place] [address] [place] [id number] 07-05-2024 [id number] HNO ID: [id number] Author: SUSAN RAO RN Service: ? Author Type: Registered Nurse Type: [id number] Filed: 07/05/2024 15:15 Note Text: The patient received a copy of EGD discharge instructions that contain information for how to contact the physician who performed the procedure and when to seek medical care. Normal [facility] ANES POSTPROC EVALon 025 ANES POSTPROC EVAL HNO ID: [id number] Author: SUSAN BELL APRN.CRNA Service: Anesthesiology Author Type: Nurse Duplicating Machine Servicer Type: Anesthesia Postprocedure Evaluation Filed: 07/05/2024 15:11 Note Text: POST ANESTHESIA EVALUATION NOTE : 1950 Procedure Summary Date: 07/05/24 Room / Location: Ambulatory Surgery Anesthesia Start: 1456 Anesthesia Stop: 1511 Procedure: EGD DIAGNOSTIC Diagnosis: Esophageal dysphagia Gastroesophageal reflux disease, unspecified whether esophagitis present (Dysphagia) Scheduled Providers: Madan Weber MD Responsible Provider: Susan Bell APRN.CRNA Anesthesia Type: MAC ASA Status: 2 Anesthesia Type: MAC Last Vitals Vitals Value Taken Time BP 116/66 07/05/24 1510 Temp 36.6 ?C (97.8 ?F) 07/05/24 1510 Pulse 70 07/05/24 1510 Resp 16 07/05/24 1510 SpO2 95 % 07/05/24 1510 Post Anesthesia Patient Status Patient Evaluation: PACU. PACU/ICU Patient Condition: stable. Anticipated Disposition: phase 2 then home. Neurological Status: aware and responsive. Pulmonary Status: breathing comfortably on room air Airway Control: returned to baseline unsupported. Cardiovascular Status: stable. Pain Management: clinically adequate Postoperative Hydration: acceptable. Intraoperative Events: no significant anesthesia events Post Operative Nausea/Vomiting Status: no significant post operative nausea or vomiting Recommendation: continue current plan of care. Anesthesia Observations No Documentation SIGNATURE: Susan Bell APRN.CRNA PATIENT NAME: Brent Mosqueda DATE: July 05, 2024 TIME: 3:11 PM CSN: [id number] Normal [facility] ANE POSTPROC EVAL HNO ID: [id number] Author: SUSAN BELL APRN.CRNA Service: Anesthesiology Author Type: Nurse Duplicating Machine Servicer Type: Anesthesia Postprocedure Evaluation Filed: 07/05/2024 15:11 Note Text: POST ANESTHESIA EVALUATION NOTE : 1950 Procedure Summary Date: 07/05/24 Room / Location: Ambulatory Surgery Anesthesia Start: 1456 Anesthesia Stop: 1510 Procedure: EGD DIAGNOSTIC Diagnosis: Esophageal dysphagia Gastroesophageal reflux disease, unspecified whether esophagitis present (Dysphagia) Scheduled Providers: Madan Weber MD Responsible Provider: Susan Bell APRN.CRNA Anesthesia Type: MAC ASA Status: 2 Anesthesia Type: MAC Last Vitals Vitals Value Taken Time BP 116/66 07/05/24 1511 Temp 97.8 07/05/24 1511 Pulse 64 07/05/24 1511 Resp 15 07/05/24 1511 SpO2 95 07/05/24 1511 [facility] AN POST OP NOTE Anesthesia Observations No Documentation SIGNATURE: Susan Bell APRN.CRNA PATIENT NAME: Brent Mosqueda DATE: July 05, 2024 TIME: 3:11 PM CSN: [id number] Normal [facility] HISTORY PHYSICALon HISTORY PHYSICAL HNO ID: [id number] Author: MADAN WEBER MD Service: Gastroenterology Author Type: Physician Type: H&P Filed: 07/05/2024 14:47 Note Text: Endoscopy pre-operative HANDP HANDP completed prior to the start time of the procedure. IMPRESSION AND PLAN HPI: This is a 74 year old female. For EGD. Hard to push down liquids and solids and pills at times Esophagram showed gerd and small hiatal hernia Pertinent Review of Systems: GI: See HPI All other reviewed and negative other than HPI. PAST MEDICAL HISTORY: 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 [place] PAST SURGICAL HISTORY: PAST SURGICAL HISTORY Procedure Laterality Date ANKLE SURGERY HX Left x3 COLONOSCOPY SCREENING within the last 18 years per patient COLONOSCOPY SCREENING 11/12/2022 Lymphocytic colitis FOOT SURGERY HX Right 01/2023 PAST SURGICAL HISTORY OF 11/20/2023 spinal fusion l4 and l5 Dr. Rizo REMOVAL GALLBLADDER OBJECTIVE: PHYSICAL EXAM: VITALS: BP 130/87 Pulse 85 Temp 36.9 ?C (98.5 ?F) (Temporal) Resp 16 Ht 157.5 cm (5' 2) Wt 85.3 kg (188 lb) SpO2 95% BMI 34.39 kg/m? General appearance: AANDOx3 Respiratory: Normal chest expansion. No audible wheezes. CVS: No shortness of breath, no extremity edema. Regular pulse. Plan: OK to proceed with endoscopy. SIGNATURE: Madan Boo MD PATIENT NAME: Brent Mosqueda Normal [facility] Pathology biopsy report Yuval (Tiss)on 07-05-2024 CASE REPORT Normal [facility] Comment on above: Order Comment: Speci men Type: TISSUE SPECIMEN [facility] Address: [address] [place] [address] Result Comment: Surg ica Pathology Report Case: [id number] Authorizing Provider: Madan Weber MD Collected: 07/05/2024 03:01 PM Ordering Location: Ambulatory Surgery Received: 07/05/2024 08:31 PM Pathologist: Carmen Barker MD Specimens: A) - Stomach, Antrum, Biopsy, r/o H-pylori B) - Esophagus, Distal, Biopsy, r/o EOE C) - Esophagus, Proximal, Biopsy, r/o EOE Performed By: #### 6 6121-5 #### [facility] CLIA [id number] [address] [place] [address] LAB CLIA [id number] [address] [place] [address] STATES OF [facility] DIAGNOSIS COMMENT A. No microorganisms morphologically compatible with Helicobacter pylori are identified on routine H AND E stained slides. Normal [facility] Comment on above: Order Comment: Speci men Type: TISSUE SPECIMEN [facility] Address: [address] [place] [address] Performed By: #### 6 6121-5 #### [facility] CLIA [id number] [address] [place] [address] LAB CLIA [id number] [address] [place] [address] [place] FINAL DIAGNOSIS Normal [facility] Comment on above: Order Comment: Speci men Type: TISSUE SPECIMEN [facility] Address: [address] [place] [address] Result Comment: Vance blandach, antrum, biopsy: - Gastric antral body type mucosa with mild chronic inactive gastritis; see comment. B. Esophagus, distal, biopsy: - Squamous mucosa with no pathologic diagnostic abnormality; negative for intraepithelial eosinophils. C. Esophagus, proximal, biopsy: - Squamous mucosa with no pathologic diagnostic abnormality; negative for intraepithelial eosinophils. at 0950 EST Performed By: #### 6 6121-5 #### [facility] CLIA [id number] [address] [place] [address] [place] [facility] CLIA [id number] [address] [place] [address] [place] FINAL PERFORMING LAB Normal [facility] Comment on above: Order Comment: Speci men Type: TISSUE SPECIMEN [facility] Address: [address] [place] [address] Result Comment: Diag nostic interpretation performed at: [facility], [place] [address] CLIA# [id number] Straight Pin Making Machine Operator: Carmen Barker MD Performed By: #### 6 6121-5 #### [facility] CLIA [id number] [place] [address] [place] [facility] CLIA [id number] [address] [place] [address] [place] GROSS DESCRIPTION Normal [facility] Comment on above: Order Comment: Speci men Type: TISSUE SPECIMEN [facility] Address: [address] [place] [address] Result Comment: A. S tomach, Antrum, Biopsy Received in formalin are two pieces of balderas-brown, soft tissue aggregating to 0.7 x 0.3 x 0.2 cm. Totally submitted in one cassette. B. Esophagus, Distal, Biopsy Received in formalin are multiple pieces of balderas, soft tissue aggregating to 1.2 x 0.3 x 0.2 cm. Totally submitted in one cassette. C. Esophagus, Proximal, Biopsy Received in formalin are multiple pieces of balderas, soft tissue aggregating to 1.0 x 0.4 x 0.1 cm. Totally submitted in one cassette. DL July 06, 2024 1:15 AM Gross examination performed at [facility], [address] [place] [address] Performed By: #### 6 6121-5 #### [facility] CLIA [id number] [place] [address] [place] [facility] CLIA [id number] [address] [place] [address] [place] Upper GI endoscopyon 025 Upper GI endoscopy [facility] Patient Name: Brent Mosqueda Procedure Date: 07/05/2024 2:21 PM Date of : 1950 Admit Type: Outpatient Age: 74 Room: [place] [address] Gender: Female Note Status: Finalized Attending MD: Madan Weber MD, [id number] Procedure: Upper GI endoscopy Indications: Dysphagia Providers: Madan Weber MD Patient Profile: Refer to note in patient chart for documentation of history and physical. Referring Physician: Devorah Salazar (pa) (Referring MD) Medicines: Monitored Anesthesia Care Complications: No immediate complications. Estimated blood loss: Minimal. Requesting Provider: Procedure: Pre-Anesthesia Assessment: - Prior to the procedure, a History and Physical was performed, and patient medications and allergies were reviewed. The patient's tolerance of previous anesthesia was also reviewed. The risks and benefits of the procedure and the sedation options and risks were discussed with the patient. All questions were answered, and informed consent was obtained. Prior Anticoagulants: The patient has taken no anticoagulant or antiplatelet agents. ASA Grade Assessment: See anesthesia record. After reviewing the risks and benefits, the patient was deemed in satisfactory condition to undergo the procedure. After obtaining informed consent, the endoscope was passed under direct vision. Throughout the procedure, the patient's blood pressure, pulse, and oxygen saturations were monitored continuously. The Endoscope was introduced through the mouth, and advanced to the third part of duodenum. I was present and participated during the entire procedure, including non-germain portions, and during the administration and monitoring of Moderate Sedation. The upper GI endoscopy was accomplished without difficulty. The patient tolerated the procedure well. Moderate Sedation: MAC anesthesia was administered by the anesthesia team. Findings: The Z-line was regular and was found 35 cm from the incisors. The examined esophagus was normal. Biopsies were obtained from the proximal and distal esophagus with cold forceps for histology of suspected eosinophilic esophagitis. The pathology specimens from the distal esophagus were placed into Bottle Number 2. The pathology specimens from the proximal esophagus were placed into Bottle Number 3. A 1 cm hiatal hernia was present. The Z-line was at 35 cm and the diaphragmatic pinch was at 36 cm. Patchy mild inflammation characterized by erosions and erythema was found in the gastric body and in the gastric antrum. Biopsies were taken from the antrum with a cold forceps for histology. The pathology specimen was placed into Bottle Number 1. The cardia and gastric fundus were normal on retroflexion. The duodenal bulb, second portion of the duodenum and third portion of the duodenum were normal. Impression: - Z-line regular, 35 cm from the incisors. - Normal esophagus. - 1 cm hiatal hernia. - Gastritis, characterized by erosions and erythema. Biopsied. - Normal duodenal bulb, second portion of the duodenum and third portion of the duodenum. - Biopsies were taken with a cold forceps for evaluation of eosinophilic esophagitis. Recommendation: - Patient has a contact number available for emergencies. The signs and symptoms of potential delayed complications were discussed with the patient. Return to normal activities tomorrow. Written discharge instructions were provided to the patient. - Resume previous diet. - Continue present medications. - Resume anticoagulant medication and antiplatelet medication at prior doses today. Procedure Code(s): --- Professional --- 47192, Esophagogastroduodenosc opy, flexible, transoral; with biopsy, single or multiple CPT copyright 2020 [place] [employer]. All rights reserved. The codes documented in this report are preliminary and upon gun synchronizer review may be revised to meet current compliance requirements. Attending Participation: I was present and participated during the entire procedure from insertion to removal of the endoscope. Scope In: 3:00:48 PM Scope Out: 3:04:01 PM MD Madan Mcintyre MD 07/05/2024 3:07:37 PM This report has been signed electronically by Madan Weber MD Number of Addenda: 0 Note Initiated On: 07/05/2024 2:21 PM Estimated Blood Loss: Estimated blood loss was minimal. Normal [facility] CNTHERAPYon 06-29-2024 CNTHERAPY OT/PT/Speech Visit (PTWS) TOSHABRENT STUBBS ([id number]) 1950 F Date Time Provider Department 06/29/24 2:00 PM POONAM JOHN PTWS Date Time Provider Department [place] 06/29/2024 2:00 PM [id number], MARIAH PTWS Mary Kate Ronni Reason for Visit: Physical Therapy [503] PT Discharge [752] Primary Visit Diagnosis:Lumbar radiculopathy [M54.16] Allergies As of Date: 06/29/2024 (No Known Allergies) Date Reviewed: 06/21/2024 Reviewed by: Denisse Proctor LPN - Fully Assessed Prescriptions as of 03/03/2025 - hydrOXYzine HCl (ATARAX) 25 mg tablet TAKE ONE TABLET BY MOUTH THREE TIMES A DAY NEEDED - citalopram (CELEXA) 20 mg tablet Take 1 tablet by mouth once daily for 14 days, THEN 2 tablets once daily. - metoprolol succinate ER (TOPROL XL) 25 mg 24 hr tablet TAKE ONE TABLET BY MOUTH EVERY AFTERNOON - ALIGN, B.LONGUM, 10 million cell cap TAKE ONE CAPSULE BY MOUTH EVERY DAY - amoxicillin (AMOXIL) 500 mg capsule - Chlorhexidine Gluconate (PERIDEX) 0.12 % solution - ibuprofen (MOTRIN) 600 mg tablet - pregabalin (LYRICA) 75 mg capsule Take 75 mg by mouth two times a day. - atorvastatin (LIPITOR) 20 mg tablet Take 1 tablet by mouth once daily. - Bifidobacterium Infantis (TYSHAWN, B.INFANTIS,) 4 mg cap Take 1 capsule by mouth once daily. - ascorbic acid, vitamin C, (VITAMIN C) 500 mg tablet Take 1 tablet by mouth once daily. - vit C/E/Zn/coppr/lutein/ada jennifer (PRESERVISION AREDS-2 ORAL) Take 1 tablet by mouth twice daily. Normal [facility] ANES PRE-OPon 06-28-2024 ANES PRE-OP HNO ID: [id number] Author: SUSAN BELL APRN.MAINTENANCE OF WAY CLERK Service: Anesthesiology Author Type: Nurse Duplicating Machine Servicer Type: Anesthesia Preprocedure Evaluation Filed: 07/05/2024 14:55 Note Text: ANESTHESIOLOGY DAY OF SURGERY NOTE : 1950 Procedure Information Date/Time: 07/05/24 1430 Scheduled providers: Madan Weber MD Procedure: EGD DIAGNOSTIC Location: Ambulatory Surgery Estimated body mass index is 34.75 kg/m? as calculated from the following: Height as of 06/21/24: 157.5 cm (5' 2). Weight as of 06/21/24: 86.2 kg (190 lb). Most recent hematocrit and potassium results: Hematocrit 40.8 06/17/2024 Potassium 4.2 06/17/2024 Relevant Problems CARDIO (+) VELÁZQUEZ (dyspnea on exertion) (+) PVC (premature ventricular contraction) PULMONARY (+) VELÁZQUEZ (dyspnea on exertion) I - PHYSICAL EVALUATION AIRWAY Patient intubated: No. Tracheostomy tube not present Mallampati: II. TM distance: >3 FB. Neck ROM: full ROM without neurological symptoms. Mouth opening: adequate. Short neck: no. Thick neck: no Microretrognathia/Micro nagthia/Recessed Chin: No DENTAL Dental findings: teeth intact. Dentures, lower: partial. Additional exam findings: no II - ANESTHESIA PLAN ASA Score: 2 Anesthetic Plan: MAC The patient is not a current smoker. NPO Status: adequate Beta Alfonzo Monitoring Plan Monitoring plan: standard ASA. Post Procedure Analgesic Plan Postoperative analgesic plan: parenteral or oral opioids. Informed Consent Anesthetic risks, benefits, alternatives, personnel and consent discussed: yes. Patient / Responsible Republican agrees to proceed: yes Patient / Surrogate agrees to blood products: blood products not planned DNR status not reviewed with patient and/or family prior to surgery. Significant changes in the patient condition since the History and Physical, not otherwise documented in primary service progress note: no. Potential Anesthesia issues that may suggest increased risk of complications or contraindication to planned procedure: none. Discussed the possibility of lip / dental damage: yes No vitals data found for the desired time range. Outpatient Medications as of 07/05/2024 Medication Sig Bifidobacterium Infantis (ALIGN, B.INFANTIS,) 4 mg cap Take 1 capsule by mouth once daily. carBAMazepine XR (TEGRETOL XR) 100 mg 12 hr tablet Take 1 tablet by mouth two times a day for 7 days, THEN 2 tablets two times a day. pregabalin (LYRICA) 100 mg capsule Take 1 capsule by mouth three times a day. metoprolol succinate ER (TOPROL XL) 25 mg 24 hr tablet Take 1 tablet by mouth every afternoon. hydrOXYzine HCl (ATARAX) 25 mg tablet take one tablet by mouth three times a day as needed DULoxetine (CYMBALTA) 60 mg capsule Take 1 capsule by mouth once daily. ascorbic acid, vitamin C, (VITAMIN C) 500 mg tablet Take 1 tablet by mouth once daily. vit C/E/Zn/coppr/lutein/ada jennifer (PRESERVISION AREDS-2 ORAL) Take 1 tablet by mouth twice daily. No current facility-administered medications on file as of 07/05/2024. I have interviewed and examined the patient. I have reviewed the medical record and/or the pre-anesthesia evaluation, pertinent labs, and test results. This contains updated information obtained within 48 hours of Surgery/Procedure. SIGNATURE: Vanessa Nielsen APRN.CRNA PATIENT NAME: Brent Mosqueda DATE: June 28, 2024 TIME: 4:05 PM CSN: [id number] Normal [facility] [id number] 06-25-2024 [id number] HNO ID: [id number] Author: PÉREZ LING PT Service: ? Author Type: Physical Therapist Type: [id number] Filed: 06/25/2024 13:07 Note Text: [facility] Therapy Physical Therapy Plan of Care Certification Patient Name: Brent Mosqueda : 1950 [facility] #: [id number] Date: 06/04/2024 To: Stephen Rizo, DO From Therapist: Pérez Ling PT RE: Patient Certification/ Recertification Your review, approval and electronic signature are required in order to comply with Payor: [facility] MEDICARE / Plan: [facility] MEDICARE / Product Type: Medicare / regulations. The identified Physical Therapy PLAN OF CARE for the patient is as follows: M54.16 Lumbar radiculopathy PLAN OF CARE: Assessment: Brent Mosqueda presents with chief complaint of LBP and BLE pain that interferes with walking, stair negotiation . The patient presents with impairments in ADL's, independence in exercise, joint mobility, overall function, and strength. PROMIS? (Patient-Reported Outcomes Measurement Information System) scores were reviewed and identified as a rehabilitation concern. Prognosis for therapy is Good due to: current objective clinical presentation . Pt demonstrates hypermobility at L3 with poor core control seen via using the [place] Stabilizer cuff. The patient will benefit from skilled therapy services to meet the goals established for this plan of care as noted below. Classification Pain Mechanism Classification: Neuropathic Low Back Pain Classification: Movement Control Goals for Episode of Care: established 06/04/24 Pt will be able to stand/walk for 1 hour without pain [place] in home exercise program. Perform all therapeutic exercises without pain. Pt will report no pain with sleeping Patient Goals: Get rid of the pain Time Frame for Goals and Treatment : 07/30/24 Planned Interventions, Frequency, and Duration: Current Frequency: 1x/week Duration: 8 weeks Total Number of Visits Planned: 8 Planned Treatment Interventions: Therapeutic exercise (80309), Neuromuscular re-education (42818), Manual therapy (68482), Therapeutic activities (78780), Self-usp management (63506), Patient/Family/Caregive r Education PLAN FOR NEXT VISIT: Core stability exercises Patient demonstrates good understanding of plan of care and treatment. The above goals and plan of care were discussed and agreed upon by patient/family. For further details regarding this patient refer to the Physical Therapy electronically documented visit dated 06/04/2024. Provider Attestation I have reviewed the treatment plan for Brent Mosqueda, [facility]# [id number] for the period of 06/04/24 -- 07/09/24, established on 06/04/2024. Signature certifies the need for therapy services. Normal [facility] [id number] HNO ID: [id number] Author: PÉREZ LING PT Service: ? Author Type: Physical Therapist Type: [id number] Filed: 06/25/2024 13:06 Note Text: [facility] Physical Therapy Plan of Care Certification Patient Name: Brent Mosqueda : 1950 [facility] #: [id number] Date: 06/04/2024 To: Stephen Rizo, DO From Therapist: Pérez Ling PT RE: Patient Certification/ Recertification Your review, approval and electronic signature are required in order to comply with Payor: [facility] MEDICARE / Plan: [employer] MEDICARE / Product Type: Medicare / regulations. The identified Physical Therapy PLAN OF CARE for the patient is as follows: M54.16 Lumbar radiculopathy PLAN OF CARE: Assessment: Brent Mosqueda presents with chief complaint of LBP and BLE pain that interferes with walking, stair negotiation . The patient presents with impairments in ADL's, independence in exercise, joint mobility, overall function, and strength. PROMIS? (Patient-Reported Outcomes Measurement Information System) scores were reviewed and identified as a rehabilitation concern. Prognosis for therapy is Good due to: current objective clinical presentation . Pt demonstrates hypermobility at L3 with poor core control seen via using the [place] Stabilizer cuff. The patient will benefit from skilled therapy services to meet the goals established for this plan of care as noted below. Classification Pain Mechanism Classification: Neuropathic Low Back Pain Classification: Movement Control Goals for Episode of Care: established 06/04/24 Pt will be able to stand/walk for 1 hour without pain [place] in home exercise program. Perform all therapeutic exercises without pain. Pt will report no pain with sleeping Patient Goals: Get rid of the pain Time Frame for Goals and Treatment : 07/30/24 Planned Interventions, Frequency, and Duration: Current Frequency: 1x/week Duration: 8 weeks Total Number of Visits Planned: 8 Planned Treatment Interventions: Therapeutic exercise (16549), Neuromuscular re-education (42542), Manual therapy (09766), Therapeutic activities (38882), Self-usp management (12373), Patient/Family/Caregive r Education, Gait Training (23395) PLAN FOR NEXT VISIT: Core stability exercises Patient demonstrates good understanding of plan of care and treatment. The above goals and plan of care were discussed and agreed upon by patient/family. For further details regarding this patient refer to the Physical Therapy electronically documented visit dated 06/04/2024. Provider Attestation I have reviewed the treatment plan for Brent Mosqueda, [facility]# [id number] for the period of 06/04/24 -- 07/09/24, established on 06/04/2024. Signature certifies the need for therapy services. Normal [facility] ANTI-SP100 AND ANTI-GP210 AN TIBODIES, IGGon 06-25-2024 ANTI-GP210 ANTIBODY, IGG 1.8 Units Normal 0.0-24.9 [facility] Comment on above: Order Comment: Gume fagan Type: BLOOD SPECIMENOrdering Facility: [facility] Address: [address] [place] [address] Result Comment: REFE RENCE INTERVAL: Anti-gp210 Antibody, IgG 20.0 Units or less........Negative 20.1-24.9 Units...........Equivocal 25.0 Units or greater.....Positive GP210 IgG antibodies can be detected in patients with primary biliary cholangitis (PBC) and may be of diagnostic relevance in a subset of patients with PBC who are negative for anti-mitochondrial antibodies (AMA). These antibodies have a relatively low sensitivity with excellent specificity for PBC. A negative result does not rule out PBC. Performed By: [employer] [address] [place] [address] Straight Pin Making Machine Operator: Didier Hendricks MD, PhD CLIA Number: [id number] Performed By: #### A NSPGP ####[facility] Avantis Medical SystemsIA [id number] [place] [id number] ANTI-SP100 ANTIBODY, IGG 3.8 Units Normal 0.0-24.9 [facility] Comment on above: Order Comment: Gume fagan Type: BLOOD SPECIMENOrdering Facility: [facility] Address: [address] [place] [address] Result Comment: REFE RENCE INTERVAL: Anti-sp100 Antibody, IgG 20.0 Units or less........Negative 20.1-24.9 Units...........Equivocal 25.0 Units or greater.....Positive SP100 IgG antibodies can be detected in patients with primary biliary cholangitis (PBC) and may be of diagnostic relevance in a subset of patients with PBC who are negative for anti-mitochondrial antibodies (AMA). These antibodies have a relatively low sensitivity with excellent specificity for PBC. A negative result does not rule out PBC. Performed By: #### A NSPGP ####[facility] Avantis Medical SystemsIA [id number] [place] [address] CNTHERAPYon 06-25-2024 CNTHERAPY OT/PT/Speech Visit (PTWS) TOSHABRENT STUBBS ([id number]) 1950 F Date Time Provider Department 06/25/24 8:00 AM POONAM JOHN PTWS Date Time Provider Department [place] 06/25/2024 8:00 AM [id number], MARIAH PTWS Mary Kate [place] Reason for Visit: Physical Therapy [503] Primary Visit Diagnosis:Lumbar radiculopathy [M54.16] Other Visit Diagnosis:Recurrent falls while walking [R29.6] Allergies As of Date: 06/25/2024 (No Known Allergies) Date Reviewed: 06/21/2024 Reviewed by: Denisse Proctor LPN - Fully Assessed Prescriptions as of 06/25/2024 - Bifidobacterium Infantis (ALIGN, B.INFANTIS,) 4 mg cap Take 1 capsule by mouth once daily. - carBAMazepine XR (TEGRETOL XR) 100 mg 12 hr tablet Take 1 tablet by mouth two times a day for 7 days, THEN 2 tablets two times a day. - pregabalin (LYRICA) 100 mg capsule Take 1 capsule by mouth three times a day. - metoprolol succinate ER (TOPROL XL) 25 mg 24 hr tablet Take 1 tablet by mouth every afternoon. - hydrOXYzine HCl (ATARAX) 25 mg tablet take one tablet by mouth three times a day as needed - DULoxetine (CYMBALTA) 60 mg capsule Take 1 capsule by mouth once daily. - ascorbic acid, vitamin C, (VITAMIN C) 500 mg tablet Take 1 tablet by mouth once daily. - vit C/E/Zn/coppr/lutein/ada jennifer (PRESERVISION AREDS-2 ORAL) Take 1 tablet by mouth twice daily. Internet Network Specialist: Therapy (PT/OT/Speech/Resp) ID: [id number] 06/25/2024 8:36 AM Author: POONAM JOHN Signed by POONAM JOHN STRIKER OFF on 06/25/2024 at 8:37 AM Document text: Program_ID:[id number] Access Code: [email or web address] URL: [email or web address] [employer]/ Date: 06-25-2024 Prepared By: Sagar Calero Program Notes Exercises - Supine Double Knee to Chest - 1 x daily - 7 x weekly - 3 sets - 3 reps - Hooklying Single Knee to Chest - 1 x daily - 7 x weekly - 3 sets - 3 reps - Sidelying Hip Abduction - 1 x daily - 7 x weekly - 3 sets - 10 reps - Supine 90/90 Alternating Toe Touch - 1 x daily - 7 x weekly - 3 sets - 10 reps - Bent Knee Fallouts - 1 x daily - 7 x weekly - 3 sets - 10 reps - Supine Transversus Abdominis Bracing - Hands on Ground - 1 x daily - 7 x weekly - 3 sets - 10 reps - Quadruped Cat Cow - 1 x daily - 7 x weekly - 3 sets - 10 reps - Supine Transversus Abdominis Bracing - Hands on Ground - 2-3 x daily - 7 x weekly - 2 sets - 10 reps - Supine Piriformis Stretch with Foot on Ground - 1 x daily - 7 x weekly - 1 sets - 3 reps - Seated Piriformis Stretch - 1 x daily - 7 x weekly - 1 sets - 3 reps Normal [facility] Hepatic function 2000 panelo n 06-25-2024 Albumin [Mass/Vol] 3.9 g/dL Normal 3.9-4.9 [facility] Comment on above: Order Comment: Speci men Type: BLOOD SPECIMENOrdering Facility: [facility] Address: [address] [place] [address] Performed By: #### 2 4325-3 ####[facility] [id number] [place] [address] [place] ALP [Catalytic activity/Vol] 174 U/L High 34-123 [facility] Comment on above: Order Comment: Speci men Type: BLOOD SPECIMENOrdering Facility: [facility] Address: [address] [place] [address] Performed By: #### 2 4325-3 ####[facility] [id number] [place] [address] [place] ALT [Catalytic activity/Vol] 18 U/L Normal 7-38 [facility] Comment on above: Order Comment: Speci men Type: BLOOD SPECIMENOrdering Facility: [facility] Address: [address] [place] [address] Performed By: #### 2 4325-3 ####[facility] [id number] [place] [address] [place] AST [Catalytic activity/Vol] 18 U/L Normal 13-35 [facility] Comment on above: Order Comment: Speci men Type: BLOOD SPECIMENOrdering Facility: [facility] Address: [address] [place] [address] Performed By: #### 2 4325-3 ####[facility] [id number] [place] [address] [place] Bilirubin [Mass/Vol] 0.2 mg/dL Normal 0.2-1.3 [facility] Comment on above: Order Comment: Speci men Type: BLOOD SPECIMENOrdering Facility: [facility] Address: [address] [place], [place] [address] Performed By: #### 2 4325-3 ####[facility] [id number] [place] [address] [place] Bilirubin.conjugated [Mass/Vol] 0.1 mg/dL Normal <0.3 [facility] Comment on above: Order Comment: Speci men Type: BLOOD SPECIMENOrdering Facility: [facility] Address: [address] [place] [address] Performed By: #### 2 4325-3 ####[facility] [id number] [place] [address] [place] Protein [Mass/Vol] 7.0 g/dL Normal 6.3-8.0 [facility] Comment on above: Order Comment: Speci men Type: BLOOD SPECIMENOrdering Facility: [facility] Address: [address] [place] [address] Performed By: #### 2 4325-3 ####[facility] [id number] [address] [place] Mitochondria Ab IF Ql (S)on 06-25-2024 Mitochondria M2 Ab IA Qn (S) 12.7 Units Normal <=20.0 [facility] Comment on above: Order Comment: Speci men Type: BLOOD SPECIMENOrdering Facility: [facility] Address: [address] [place] [address] Performed By: #### 1 7284-1 ####[facility] LABCLIA [id number] [address] Mitochondria M2 Ab Ql (S) Negative Normal Negative [facility] Comment on above: Order Comment: Speci men Type: BLOOD SPECIMENOrdering Facility: [facility] Address: [address] [place] [address] Result Comment: Anti -mitochondrial antibody test is used as an aid in diagnosis of primary biliary cholangitis. Clinical correlation is required. Performed By: #### 1 7284-1 ####[facility] LABCLIA [id number] [place] [address] [place] THERAPY NTon 06-25-2024 THERAPY NT HNO ID: [id number] Author: POONAM JOHN PTA Service: ? Author Type: Veterinarian Epidemiologist Type: Therapy (PT/OT/Speech/Resp) Filed: 06/25/2024 08:37 Note Text: Program_ID:[id number] Access Code: [email or web address] URL: [email or web address]/ Date: 06-25-2024 Prepared By: Sagar Calero Program Notes Exercises - Supine Double Knee to Chest - 1 x daily - 7 x weekly - 3 sets - 3 reps - Hooklying Single Knee to Chest - 1 x daily - 7 x weekly - 3 sets - 3 reps - Sidelying Hip Abduction - 1 x daily - 7 x weekly - 3 sets - 10 reps - Supine 90/90 Alternating Toe Touch - 1 x daily - 7 x weekly - 3 sets - 10 reps - Bent Knee Fallouts - 1 x daily - 7 x weekly - 3 sets - 10 reps - Supine Transversus Abdominis Bracing - Hands on Ground - 1 x daily - 7 x weekly - 3 sets - 10 reps - Quadruped Cat Cow - 1 x daily - 7 x weekly - 3 sets - 10 reps - Supine Transversus Abdominis Bracing - Hands on Ground - 2-3 x daily - 7 x weekly - 2 sets - 10 reps - Supine Piriformis Stretch with Foot on Ground - 1 x daily - 7 x weekly - 1 sets - 3 reps - Seated Piriformis Stretch - 1 x daily - 7 x weekly - 1 sets - 3 reps Normal [facility] US ABD RIGHT UPPER QUADRANTo n 06-25-2024 US ABD RIGHT UPPER QUADRANT * * *Final Report* * * DATE OF EXAM: Jun 25 2024 9:54AM WRU 1032 - US ABD RIGHT UPPER QUADRANT / PROCEDURE REASON: Elevated LFTs * * * * Physician Interpretation * * * * EXAMINATION: RIGHT UPPER QUADRANT ULTRASOUND CLINICAL HISTORY: Elevated LFTs TECHNIQUE: Sonography of the right upper quadrant was performed. Images were obtained and stored in a permanent archive. MQ: URUQ_2 COMPARISON: 09/06/2022 ultrasound. RESULT: Pancreas: Normal sonographic appearance. Portions obscured: tail Liver: Echotexture: Normal, homogeneous. Echogenicity: Normal Surface contour: Smooth Lesions: None. Biliary: No intrahepatic biliary duct dilation. CBD: 0.3 cm at the hilum. Gallbladder: Prior cholecystectomy Right Kidney: No hydronephrosis. Ascites: None. IMPRESSION: Normal sonographic appearance of the right upper quadrant. Fiberglass Model Maker: PSCB Transcribe Date/Time: Jun 25 2024 2:42P Dictated by : SARAH LENZ MD This examination was interpreted and the report reviewed and electronically signed by: SARAH LENZ MD on Jun 25 2024 2:45PM EST [id number] Normal [facility] US Abdomen RUQon 06-25-2024 IMPRESSION: Normal sonographic appearance of the right upper quadrant. Fiberglass Model Maker: PSCDeborah Transcribe Date/Time: Jun 25 2024 2:42P Dictated by : SARAH LENZ MD This examination was interpreted and the report reviewed and electronically signed by: SARAH LENZ MD on Jun 25 2024 2:45PM EST DIVISION OF RADIOLOGY * * *Final Report* * * DATE OF EXAM: Jun 25 2024 9:54AM WRU 1032 - US ABD RIGHT UPPER QUADRANT / PROCEDURE REASON: Elevated LFTs * * * * Physician Interpretation * * * * EXAMINATION: RIGHT UPPER QUADRANT ULTRASOUND CLINICAL HISTORY: Elevated LFTs TECHNIQUE: Sonography of the right upper quadrant was performed. Images were obtained and stored in a permanent archive. MQ: URUQ_2 COMPARISON: 09/06/2022 ultrasound. RESULT: Pancreas: Normal sonographic appearance. Portions obscured: tail Liver: Echotexture: Normal, homogeneous. Echogenicity: Normal Surface contour: Smooth Lesions: None. Biliary: No intrahepatic biliary duct dilation. CBD: 0.3 cm at the hilum. Gallbladder: Prior cholecystectomy Right Kidney: No hydronephrosis. Ascites: None. DIVISION OF RADIOLOGY Provider, [facility] - 06/25/2024 * * *Final Report* * * DATE OF EXAM: Jun 25 2024 9:54AM WRU 1032 - US ABD RIGHT UPPER QUADRANT / PROCEDURE REASON: Elevated LFTs * * * * Physician Interpretation * * * * EXAMINATION: RIGHT UPPER QUADRANT ULTRASOUND CLINICAL HISTORY: Elevated LFTs TECHNIQUE: Sonography of the right upper quadrant was performed. Images were obtained and stored in a permanent archive. MQ: URUQ_2 COMPARISON: 09/06/2022 ultrasound. RESULT: Pancreas: Normal sonographic appearance. Portions obscured: tail Liver: Echotexture: Normal, homogeneous. Echogenicity: Normal Surface contour: Smooth Lesions: None. Biliary: No intrahepatic biliary duct dilation. CBD: 0.3 cm at the hilum. Gallbladder: Prior cholecystectomy Right Kidney: No hydronephrosis. Ascites: None. IMPRESSION IMPRESSION: Normal sonographic appearance of the right upper quadrant. Fiberglass Model Maker: DESTIN Transcribe Date/Time: Jun 25 2024 2:42P Dictated by : SARAH LENZ MD This examination was interpreted and the report reviewed and electronically signed by: SARAH LENZ MD on Jun 25 2024 2:45PM EST [facility] Radiology Study observation (narrative) [facility] US Abdomen RUQOrdered By: Cc f Provider on 06-25-2024 [facility] XR ESOPHAGRAMon 06-24-2024 XR ESOPHAGRAM * * *Final Report* * * DATE OF EXAM: Jun 24 2024 2:58PM AWX 5378 - XR ESOPHAGRAM / PROCEDURE REASON: Esophageal dysphagia * * * * Physician Interpretation * * * * EXAM TITLE: XR ESOPHAGRAM DATE: 06/24/2024 3:13 PM INDICATION: Dysphagia COMPARISON: None. FINDINGS: Fluoroscopy was performed by the radiology physician's commercial loan assistant. 1 minute 31 seconds of fluoroscopy time. 75 images. The patient swallowed barium without difficulty. Esophagus demonstrates normal caliber and motility. There is a small sliding-type hiatal hernia. Gastroesophageal reflux to the level of the upper esophagus was witnessed. No mucosal ulceration. IMPRESSION: Small hiatal hernia. Gastroesophageal reflux to the level of the upper esophagus. Fiberglass Model Maker: [facility] Transcribe Date/Time: Jun 24 2024 3:13P Dictated by : NAN GARG MD This examination was interpreted and the report reviewed and electronically signed by: NAN GARG MD on Jun 24 2024 3:14PM EST [id number] Normal [facility] XR Esophagus Views W contras t Mario 06-24-2024 IMPRESSION: Small hiatal hernia. Gastroesophageal reflux to the level of the upper esophagus. Fiberglass Model Maker: [facility] Transcribe Date/Time: Jun 24 2024 3:13P Dictated by : NAN GARG MD This examination was interpreted and the report reviewed and electronically signed by: NAN GARG MD on Jun 24 2024 3:14PM EST [facility] * * *Final Report* * * DATE OF EXAM: Jun 24 2024 2:58PM AWX 5378 - XR ESOPHAGRAM / PROCEDURE REASON: Esophageal dysphagia * * * * Physician Interpretation * * * * EXAM TITLE: XR ESOPHAGRAM DATE: 06/24/2024 3:13 PM INDICATION: Dysphagia COMPARISON: None. FINDINGS: Fluoroscopy was performed by the radiology physician's commercial loan assistant. 1 minute 31 seconds of fluoroscopy time. 75 images. The patient swallowed barium without difficulty. Esophagus demonstrates normal caliber and motility. There is a small sliding-type hiatal hernia. Gastroesophageal reflux to the level of the upper esophagus was witnessed. No mucosal ulceration. [facility] Provider, [place] Nnamdi Lombard - 06/24/2024 * * *Final Report* * * DATE OF EXAM: Jun 24 2024 2:58PM AWX [id number] - XR ESOPHAGRAM / PROCEDURE REASON: Esophageal dysphagia * * * * Physician Interpretation * * * * EXAM TITLE: XR ESOPHAGRAM DATE: 06/24/2024 3:13 PM INDICATION: Dysphagia COMPARISON: None. FINDINGS: Fluoroscopy was performed by the radiology physician's commercial loan assistant. 1 minute 31 seconds of fluoroscopy time. 75 images. The patient swallowed barium without difficulty. Esophagus demonstrates normal caliber and motility. There is a small sliding-type hiatal hernia. Gastroesophageal reflux to the level of the upper esophagus was witnessed. No mucosal ulceration. IMPRESSION IMPRESSION: Small hiatal hernia. Gastroesophageal reflux to the level of the upper esophagus. Fiberglass Model Maker: [facility] Transcribe Date/Time: Jun 24 2024 3:13P Dictated by : NAN GARG MD This examination was interpreted and the report reviewed and electronically signed by: NAN GARG MD on Jun 24 2024 3:14PM EST [facility] Radiology Study observation (narrative) [facility] XR Esophagus Views W rosemarie garcia POOrdered By: Ccf Provider on 06-24-2024 [facility] CNTHERAPYon 06-23-2024 CNTHERAPY OT/PT/Speech Visit (PTWS) PANDABRENT ([id number]) 1950 F Date Time Provider Department 06/23/24 5:15 PM POONAM JOHN PTWS Date Time Provider Department Center 06/23/2024 5:15 PM [id number], MARIAH PTWS Mary Kate [place] Reason for Visit: Physical Therapy [503] Primary Visit Diagnosis:Lumbar radiculopathy [M54.16] Allergies As of Date: 06/23/2024 (No Known Allergies) Date Reviewed: 06/21/2024 Reviewed by: Denisse Proctor LPN - Fully Assessed Prescriptions as of 06/23/2024 - Bifidobacterium Infantis (ALIGN, B.INFANTIS,) 4 mg cap Take 1 capsule by mouth once daily. - carBAMazepine XR (TEGRETOL XR) 100 mg 12 hr tablet Take 1 tablet by mouth two times a day for 7 days, THEN 2 tablets two times a day. - pregabalin (LYRICA) 100 mg capsule Take 1 capsule by mouth three times a day. - metoprolol succinate ER (TOPROL XL) 25 mg 24 hr tablet Take 1 tablet by mouth every afternoon. - hydrOXYzine HCl (ATARAX) 25 mg tablet take one tablet by mouth three times a day as needed - DULoxetine (CYMBALTA) 60 mg capsule Take 1 capsule by mouth once daily. - ascorbic acid, vitamin C, (VITAMIN C) 500 mg tablet Take 1 tablet by mouth once daily. - vit C/E/Zn/coppr/lutein/ada jennifer (PRESERVISION AREDS-2 ORAL) Take 1 tablet by mouth twice daily. Internet Network Specialist: Therapy (PT/OT/Speech/Resp) ID: [id number] 06/23/2024 5:48 PM Author: POONAM JOHN Signed by POONAM JOHN STRIKER OFF on 06/23/2024 at 5:48 PM Document text: Program_ID:[id number] Access Code: [email or web address] URL: [email or web address]/ Date: 06-23-2024 Prepared By: Sagar Calero Program Notes Exercises - Supine Double Knee to Chest - 1 x daily - 7 x weekly - 3 sets - 3 reps - Hooklying Single Knee to Chest - 1 x daily - 7 x weekly - 3 sets - 3 reps - Sidelying Hip Abduction - 1 x daily - 7 x weekly - 3 sets - 10 reps - Supine 90/90 Alternating Toe Touch - 1 x daily - 7 x weekly - 3 sets - 10 reps - Bent Knee Fallouts - 1 x daily - 7 x weekly - 3 sets - 10 reps - Supine Transversus Abdominis Bracing - Hands on Ground - 1 x daily - 7 x weekly - 3 sets - 10 reps - Quadruped Cat Cow - 1 x daily - 7 x weekly - 3 sets - 10 reps - Supine Transversus Abdominis Bracing - Hands on Ground - 2-3 x daily - 7 x weekly - 2 sets - 10 reps Normal [facility] THERAPY NTon 06-23-2024 THERAPY NT HNO ID: [id number] Author: POONMA JOHN PTA Service: ? Author Type: Veterinarian Epidemiologist Type: Therapy (PT/OT/Speech/Resp) Filed: 06/23/2024 17:48 Note Text: Program_ID:[id number] Access Code: [email or web address] URL: [email or web address]/ Date: 06-23-2024 Prepared By: Sagar Calero Program Notes Exercises - Supine Double Knee to Chest - 1 x daily - 7 x weekly - 3 sets - 3 reps - Hooklying Single Knee to Chest - 1 x daily - 7 x weekly - 3 sets - 3 reps - Sidelying Hip Abduction - 1 x daily - 7 x weekly - 3 sets - 10 reps - Supine 90/90 Alternating Toe Touch - 1 x daily - 7 x weekly - 3 sets - 10 reps - Bent Knee Fallouts - 1 x daily - 7 x weekly - 3 sets - 10 reps - Supine Transversus Abdominis Bracing - Hands on Ground - 1 x daily - 7 x weekly - 3 sets - 10 reps - Quadruped Cat Cow - 1 x daily - 7 x weekly - 3 sets - 10 reps - Supine Transversus Abdominis Bracing - Hands on Ground - 2-3 x daily - 7 x weekly - 2 sets - 10 reps Normal [facility] CNOVon 06-21-2024 CNOV Office Visit (FPDOYL ) BRENT MOSQUEDA ([id number]) 1950 F Date Time Provider Department 06/21/24 4:15 PM PORTIA CALHOUN FPDOYL During your visit today, we recorded the following information about you: Temperature Pulse Blood pressure 98.6 degrees 80/minute 118/66 Portia Calhoun DO 06/28/2024 7:21 PM Signed [facility] DO [address] [place] [address] Date of Evaluation: 06/21/2024 Patient Name: Brent Mosqueda : 1950 Chief Complaint: Patient presents with: Trigeminal Neuralgia: Started taking Tegretol - patient states this is helping Results: Lab results Subjective Ms. Mosqueda is a 73 year old female who presents with the following complaint(s): Patient presents to follow up after starting Tegretol last week. Patient doing well on medication states that pain is almost resolved. Review of Systems Constitutional: Negative for fatigue and unexpected weight change. HENT: Negative for nosebleeds. Eyes: Negative for redness and visual disturbance. Respiratory: Negative for apnea, cough and shortness of breath. Cardiovascular: Negative for chest pain, palpitations and leg swelling. Genitourinary: Negative for hematuria. Neurological: Negative for dizziness, weakness, light-headedness, numbness and headaches. Hematological: Does not bruise/bleed easily. Psychiatric/Behavioral: The patient is not nervous/anxious. 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 Rizo REMOVAL GALLBLADDER FAMILY HISTORY Problem Relation Age of Onset other (multiple myeloma) Mother COPD Father No Known Problems Sister No Known Problems Brother No Known Problems Brother Colon Cancer No Family History Social History Tobacco Use Smoking status: Never Passive exposure: Never Smokeless tobacco: Never Vaping Use Vaping status: Never Used Substance Use Topics Alcohol use: Not Currently Comment: rare occassion Drug use: Never Current Outpatient Medications Medication Sig Bifidobacterium Infantis (ALIGN, B.INFANTIS,) 4 mg cap Take 1 capsule by mouth once daily. carBAMazepine XR (TEGRETOL XR) 100 mg 12 hr tablet Take 1 tablet by mouth two times a day for 7 days, THEN 2 tablets two times a day. pregabalin (LYRICA) 100 mg capsule Take 1 capsule by mouth three times a day. metoprolol succinate ER (TOPROL XL) 25 mg 24 hr tablet Take 1 tablet by mouth every afternoon. hydrOXYzine HCl (ATARAX) 25 mg tablet take one tablet by mouth three times a day as needed DULoxetine (CYMBALTA) 60 mg capsule Take 1 capsule by mouth once daily. ascorbic acid, vitamin C, (VITAMIN C) 500 mg tablet Take 1 tablet by mouth once daily. vit C/E/Zn/coppr/lutein/ada jennifer (PRESERVISION AREDS-2 ORAL) Take 1 tablet by mouth twice daily. No current facility-administered medications for this visit. I have confirmed and edited as necessary the past medical, family and social histories, HPI, and ROS obtained by others. Objective BP 118/66 Pulse 80 Temp 98.6 SpO2 96% Physical Exam Vitals and nursing note reviewed. Constitutional: General: She is not in acute distress. Appearance: Normal appearance. She is well-developed. She is obese. She is not ill-appearing. HENT: Head: Normocephalic. Nose: Nose normal. Mouth/Throat: Pharynx: Oropharynx is clear. Uvula midline. Eyes: General: Lids are normal. Vision grossly intact. Gaze aligned appropriately. Extraocular Movements: Extraocular movements intact. Conjunctiva/sclera: Conjunctivae normal. Pupils: Pupils are equal, round, and reactive to light. Neck: Thyroid: No thyroid mass, thyromegaly or thyroid tenderness. Trachea: Trachea and phonation normal. Cardiovascular: Rate and Rhythm: Normal rate and regular rhythm. Pulses: Normal pulses. Heart sounds: Normal heart sounds. Pulmonary: Effort: Pulmonary effort is normal. Breath sounds: Normal breath sounds. Abdominal: General: Abdomen is flat. Bowel sounds are normal. Palpations: Abdomen is soft. Musculoskeletal: General: Normal range of motion. Right shoulder: Normal. Left shoulder: Normal. Cervical back: Normal, full passive range of motion without pain and neck (more content not included)... Normal [facility] CNOV Office Visit (GSTNOR ) TOSHABRENT STUBBS ([id number]) 1950 F Date Time Provider Department 06/21/24 1:50 PM DEVORAH SALAZAR GSTNOR During your visit today, we recorded the following information about you: Pulse Blood pressure Weight Height 100/minute 122/68 86.2 kg 1.575 m Devorah Salazar PA-C 06/21/2024 2:18 PM Signed CHIEF COMPLAINT: Patient presents with: Lymphocytic colitis: No concerns HPI Brent Mosqueda is a 73 year old female here today for Lymphocytic colitis (No concerns). Surg hx pos for bea. Bms are daily/every several days, soft consistency, no blood. Taking Align daily. Did not start Miralax as needed as recommended last office visit. Admits to chronic issues with dysphagia, states episodes are rare and is not sure exactly how often this occurs. States episodes are worse when she experiences postnasal drainage. Denies gas, bloating, abd pain, N/V, GERD, weight loss. 10/2022 AMA neg 10/2022 Celiac negative Colon 10/2022 Impression: - The examined portion of the ileum was normal. - The entire examined colon is normal. Biopsied. FINAL DIAGNOSIS A. Colon, random, biopsy: -Lymphocytic colitis. US 08/2022 IMPRESSION: Mild right hydronephrosis versus multiple peripelvic cysts. Otherwise normal sonographic appearance of the right upper quadrant. Latest Ref Rng 11/04/2022 Transglutaminase Ab, IgA <20 Units 11 Transglutaminase IgA Qualitative Negative, Test not Indicated Negative Interpretation (Celiac Screen) No serological evidence of celiac disease, however, if celiac disease is clinically suspected and patient is not on gluten-free diet, histological diagnosis may be considered. HLA testing may help with risk assessment. Gliadin Ab, IgA <20 Units 7 Gliad Deamidated IgA Qual Negative, Test not Indicated Negative Mitochondrial Ab Screen Negative Negative Mitochondrial M2 IgG Quantitative <=20.0 Units 11.9 IgA 70 - 400 mg/dL 267 OV 2022 Brent Mosqueda is a 72 year old female here today for Procedure Follow Up (Colon 11/12/22 Labs 11/04/22). Seen last for chronic diarrhea, elevated alk phos. Colon 10/2022 showed MC. Started on Entocort 10/2022 which she is not due to finish until 02/11. Bms are currently 1-2 per week, some intermittent constipation, no blood. Trying to cut back on NSAID usage. Current Outpatient Medications Medication Sig carBAMazepine XR (TEGRETOL XR) 100 mg 12 hr tablet Take 1 tablet by mouth two times a day for 7 days, THEN 2 tablets two times a day. pregabalin (LYRICA) 100 mg capsule Take 1 capsule by mouth three times a day. metoprolol succinate ER (TOPROL XL) 25 mg 24 hr tablet Take 1 tablet by mouth every afternoon. ALIGN 4 mg cap TAKE ONE CAPSULE BY MOUTH ONCE DAILY` hydrOXYzine HCl (ATARAX) 25 mg tablet take one tablet by mouth three times a day as needed DULoxetine (CYMBALTA) 60 mg capsule Take 1 capsule by mouth once daily. ascorbic acid, vitamin C, (VITAMIN C) 500 mg tablet Take 1 tablet by mouth once daily. vit C/E/Zn/coppr/lutein/ada jennifer (PRESERVISION AREDS-2 ORAL) Take 1 tablet by mouth twice daily. No current facility-administered medications for this visit. ALLERGIES No Known Allergies Social History Tobacco Use Smoking status: Never Passive exposure: Never Smokeless tobacco: Never Vaping Use Vaping status: Never Used Substance Use Topics Alcohol use: Not Currently Comment: rare occassion Drug use: Never 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 [place] PAST SURGICAL HISTORY Procedure Laterality Date ANKLE SURGERY HX Left x3 COLONOSCOPY SCREENING within the last 18 years per patient COLONOSCOPY SCREENING 11/12/2022 Lymphocytic colitis FOOT SURGERY HX Right 01/2023 PAST SURGICAL HISTORY OF 11/20/2023 spinal fusion l4 and l5 Dr. Rizo REMOVAL GALLBLADDER FAMILY HISTORY Problem Relation Age of Onset other (multiple myeloma) Mother COPD Father No Known Problems Sister No Known Problems Brother No Known Problems Brother Colon Cancer No Family History REVIEW OF SYSTEMS Review of Systems Respiratory: Positive for choking. All other systems reviewed and are negative. PHYSICAL EXAM BP 122/68 Pulse 100 Ht 157.5 cm (5' 2) Wt 86.2 kg (190 lb) BMI 34.75 kg/m? Physical Exam Constitutional: General: She is not in acute distress. Appearance: Normal appearance. She is normal weight. She is not ill-appearing, toxic-appearing or diaphoretic. HENT: Head: Normocephalic and atraumatic. Nose: Nose normal. Eyes: General: No scleral icterus. Right eye: No discharge. Left eye: No discharge. Extraocular (more content not included)... [facility] (ESTERDOYL) BRENT MOSQUEDA ([id number]) 1950 F Date Time Provider Department 06/21/24 PORTIA CALHOUN FPDOYL During your visit today, we recorded the following information about you: Kavin Frank LPN 06/21/2024 3:39 PM Signed ----- Message from Portia Calhoun DO sent at 06/21/2024 3:24 PM EST ----- Will take statin lipids up Kavin Frank LPN 06/24/2024 8:46 AM Signed Patient was seen in office 06/21/24. Kavin Frank LPN 07/02/2024 8:37 AM Signed Mychart message sent to patient and then patient was seen in office same day after mychart message was sent to patient. See office note from 06/21/24. Anything further. Portia Calhoun DO 07/02/2024 10:28 AM Signed Statin sent Portia Calhoun DO 07/02/2024 10:28 AM Signed Addended by: PORTIA CALHOUN on: 07/02/2024 10:28 AM Modules accepted: Orders Allergies As of Date: 06/21/2024 (No Known Allergies) Date Reviewed: 06/21/2024 Reviewed by: Denisse Proctor LPN - Fully Assessed Reason for Visit: Results [95] Primary Visit Diagnosis:Lipids abnormal [E78.89] Order(s):atorvastatin (LIPITOR) 20 mg tabletTake 1 tablet by mouth once daily.Disp: 90 tabletRfl: 3 LIPID PANEL BASIC [SQLIPB] Order #: [id number] FUTURE HEPATIC FUNCTION PNL [SQHFP] Order #: [id number] FUTURE Prescriptions as of 07/02/2024 - atorvastatin (LIPITOR) 20 mg tablet Take 1 tablet by mouth once daily. - Bifidobacterium Infantis (ALIGN, B.INFANTIS,) 4 mg cap Take 1 capsule by mouth once daily. - carBAMazepine XR (TEGRETOL XR) 100 mg 12 hr tablet Take 1 tablet by mouth two times a day for 7 days, THEN 2 tablets two times a day. - pregabalin (LYRICA) 100 mg capsule Take 1 capsule by mouth three times a day. - metoprolol succinate ER (TOPROL XL) 25 mg 24 hr tablet Take 1 tablet by mouth every afternoon. - hydrOXYzine HCl (ATARAX) 25 mg tablet take one tablet by mouth three times a day as needed - DULoxetine (CYMBALTA) 60 mg capsule Take 1 capsule by mouth once daily. - ascorbic acid, vitamin C, (VITAMIN C) 500 mg tablet Take 1 tablet by mouth once daily. - vit C/E/Zn/coppr/lutein/ada jennifer (PRESERVISION AREDS-2 ORAL) Take 1 tablet by mouth twice daily. Problem List As Of Date 06/21/2024 Noted Resolved MERLYN (generalized anxiety disorder) [F41.1] 07/11/2021 07/15/2023 Contusion of coccyx [S30.0XXA] 07/11/2021 07/15/2023 Chronic left shoulder pain [M25.512, G89.29] 07/11/2021 Foot pain, right [M79.671] 08/28/2022 07/15/2023 Palpitations [R00.2] 12/05/2022 VELÁZQUEZ (dyspnea on exertion) [R06.09] 01/17/2023 PVC (premature ventricular contraction) [I49.3] 01/17/2023 Postoperative pain [G89.18] 02/14/2023 07/15/2023 Anxiety with depression [F41.8] 05/20/2023 Fibromyalgia [M79.7] 05/20/2023 Elevated liver enzymes [R74.8] 05/20/2023 Chronic joint pain [M25.50, G89.29] 07/27/2023 Spinal stenosis of lumbar region with neurogeni*07/27/2023 Generalized osteoarthrosis [M15.9] 08/04/2023 Recurrent falls while walking [R29.6] 08/04/2023 Lumbar radiculopathy [M54.16] 08/24/2023 Preop examination [Z01.818] 11/07/2023 S/P lumbar fusion [Z98.1] 11/20/2023 Trigeminal neuralgia [G50.0] 06/20/2024 Prescriptions ordered this encounter Disp Refills Start End ATORVASTATIN 20 MG TABLET 90 t* 3 07/02/2024 07/02/2025 Route: ORAL Sig: Take 1 tablet by mouth once daily. Encounter Status:Closed by KAVIN FRANK on 06/21/24 Normal [facility] Lipid 1996 panelon 5 Cholesterol [Mass/Vol] 231 mg/dL High NINF - 200 mg/dL [facility] Comment on above: <200 mg/dL, Desirabl e 200-239 mg/dL, Borderline high >239 mg/dL, High Cholesterol in HDL [Mass/Vol] 64 mg/dL 39 - PINF mg/dL [facility] Comment on above: 40-59 mg/dL, Accepta ble >59 mg/dL, High: Negative risk factor for coronary heart disease <40 mg/dL, Low: Positive risk factor for coronary heart disease Cholesterol in LDL [Mass/Vol] 135 mg/dL High NINF - 100 mg/dL [facility] Comment on above: <100 mg/dL, Optimal 100-129 mg/dL, Near optimal/above optimal 130-159 mg/dL, Borderline high 160-189 mg/dL, High >189 mg/dL, Very high Secondary prevention optimal LDL Cholesterol levels are recommended to be < 70 mg/dL Cholesterol in LDL/Cholesterol in HDL [Mass ratio] 2.11 {ratio} NINF - 2.54 [facility] Comment on above: Reference: 1. National Cholesterol Education Program ATP III Guideline At-A-Glance Quick Desk Reference: National Heart, Lung, and Blood [place]. National Institutes of Health. 2001: NIH Publication No. 01-3305. 2. An International Atherosclerosis Society position paper: global recommendations for the management of dyslipidemia: executive summary, Atherosclerosis. 2014: 232(2):410-413. Cholesterol in VLDL [Mass/Vol] 32 mg/dL High NINF - 30 mg/dL [facility] Cholesterol non HDL [Mass/Vol] 167 mg/dL High NINF - 130 mg/dL [facility] Comment on above: <130 mg/dL, Optimal 130-159 mg/dL, Near optimal/above optimal 160-189 mg/dL, Borderline high 190-219 mg/dL, High >219 mg/dL, Very high Secondary prevention optimal non HDL Cholesterol levels are recommended to be <100 mg/dL Cholesterol.total/Cho lesterol in HDL [Mass ratio] 3.61 {ratio} NINF - 5.10 [facility] Fasting Time 12 hrs [facility] Interpretation and review of laboratory results Abnormal [facility] Triglyceride [Mass/Vol] 161 mg/dL High NINF - 150 mg/dL [facility] Comment on above: <150 mg/dL, Normal 150-199 mg/dL, Borderline high 200-499 mg/dL, High >499 mg/dL, Very high [facility] THYROID STIMULATING HORMONEo n 06-18-2024 TSH Qn 2.320 m[IU]/L [facility] TSH Qnon 06-18-2024 Interpretation and review of laboratory results Normal [facility] CBC W Auto Differential pane l (Bld)on 06-17-2024 Basophils (Bld) [#/Vol] 0.09 10*3/uL [facility] Basophils/100 WBC (Bld) 0.8 % [facility] Differential cell count method Nom (Bld) Auto [facility] Eosinophils (Bld) [#/Vol] 0.27 10*3/uL [facility] Eosinophils/100 WBC (Bld) 2.5 % [facility] Erythrocyte distribution width (RBC) [Ratio] 14.8 % 11.5 - 15.0 % [facility] Hematocrit (Bld) [Volume fraction] 40.8 % 36.0 - 46.0 % [facility] Hemoglobin (Bld) [Mass/Vol] 13.7 g/dL 11.5 - 15.5 g/dL [facility] Immature granulocytes (Bld) [#/Vol] 0.04 10*3/uL [facility] Immature granulocytes/100 WBC (Bld) 0.4 % [facility] Lymphocytes (Bld) [#/Vol] 2.36 10*3/uL [facility] Lymphocytes/100 WBC (Bld) 21.6 % [facility] MCH (RBC) [Entitic mass] 29.7 pg 26.0 - 34.0 pg [facility] MCHC (RBC) [Mass/Vol] 33.6 g/dL 30.5 - 36.0 g/dL [facility] MCV (RBC) [Entitic vol] 88.3 fL 80.0 - 100.0 fL [facility] Monocytes (Bld) [#/Vol] 0.85 10*3/uL [facility] Monocytes/100 WBC (Bld) 7.8 % [facility] Neutrophils (Bld) [#/Vol] 7.33 10*3/uL [facility] Neutrophils/100 WBC (Bld) 66.9 % [facility] Nucleated RBC (Bld) [#/Vol] NINF [facility] Nucleated RBC/100 WBC (Bld) [Ratio] 0.0 % /100 WBC [facility] Platelet mean volume (Bld) [Entitic vol] 9.6 fL 9.0 - 12.7 fL [facility] Platelets (Bld) [#/Vol] 286 10*3/uL [facility] RBC (Bld) [#/Vol] 4.62 10*6/uL 3.90 - 5.2 0 m/uL [facility] WBC (Bld) [#/Vol] 10.94 10*3/uL [facility] Basophils (Bld) [#/Vol] 0.09 10*3/uL Normal <0.11 [facility] Comment on above: Order Comment: Speci men Type: BLOOD SPECIMENOrdering Facility: [facility] Address: [address] [place] [address] Performed By: #### 5 7021-8 ####[facility] [id number] [address] [place] Basophils/100 WBC (Bld) 0.8 % Normal [facility] Comment on above: Order Comment: Speci men Type: BLOOD SPECIMENOrdering Facility: [facility] Address: [address] [place] [address] Performed By: #### 5 7021-8 ####[facility] [id number] [address] [place] Differential cell count method Nom (Bld) Auto Normal [facility] Comment on above: Order Comment: Speci men Type: BLOOD SPECIMENOrdering Facility: [facility] Address: [address] [place] [address] Performed By: #### 5 7021-8 ####[facility] [id number] [place] [address] [place] Eosinophils (Bld) [#/Vol] 0.27 10*3/uL Normal <0.46 [facility] Comment on above: Order Comment: Speci men Type: BLOOD SPECIMENOrdering Facility: [facility] Address: [address] [place] [address] Performed By: #### 5 7021-8 ####[facility] [id number] [place] [address] [place] Eosinophils/100 WBC (Bld) 2.5 % Normal [facility] Comment on above: Order Comment: Speci men Type: BLOOD SPECIMENOrdering Facility: [facility] Address: [address] [place] [address] Performed By: #### 5 7021-8 ####[facility] [id number] [place] [address] [place] Erythrocyte distribution width (RBC) [Ratio] 14.8 % Normal 11.5-15.0 [facility] Comment on above: Order Comment: Speci men Type: BLOOD SPECIMENOrdering Facility: [facility] Address: [address] [place] [address] Performed By: #### 5 7021-8 ####[facility] [id number] [place] [address] [place] Hematocrit (Bld) [Volume fraction] 40.8 % Normal 36.0-46.0 [facility] Comment on above: Order Comment: Speci men Type: BLOOD SPECIMENOrdering Facility: [facility] Address: [address] [place] [address] Performed By: #### 5 7021-8 ####[facility] [id number] [place] [address] [place] Hemoglobin (Bld) [Mass/Vol] 13.7 g/dL Normal 11.5-15.5 [facility] Comment on above: Order Comment: Speci men Type: BLOOD SPECIMENOrdering Facility: [facility] Address: [address] [place] [address] Performed By: #### 5 7021-8 ####[facility] [id number] [place] [address] [place] Immature granulocytes (Bld) [#/Vol] 0.04 10*3/uL Normal <0.10 [facility] Comment on above: Order Comment: Speci men Type: BLOOD SPECIMENOrdering Facility: [facility] Address: [address] [place] [address] Performed By: #### 5 7021-8 ####[facility] [id number] [place] [address] [place] Immature granulocytes/100 WBC (Bld) 0.4 % Normal [facility] Comment on above: Order Comment: Speci men Type: BLOOD SPECIMENOrdering Facility: [facility] Address: [address] [place] [address] Performed By: #### 5 7021-8 ####[facility] [id number] [place] [address] [place] Lymphocytes (Bld) [#/Vol] 2.36 10*3/uL Normal 1.00-4.00 [facility] Comment on above: Order Comment: Speci men Type: BLOOD SPECIMENOrdering Facility: [facility] Address: [address] [place] [address] Performed By: #### 5 7021-8 ####[facility] [id number] [place] [address] [place] Lymphocytes/100 WBC (Bld) 21.6 % Normal [facility] Comment on above: Order Comment: Speci men Type: BLOOD SPECIMENOrdering Facility: [facility] Address: [address] [place] [address] Performed By: #### 5 7021-8 ####[facility] [id number] [place] [address] [place] MCH (RBC) [Entitic mass] 29.7 pg Normal 26.0-34.0 [facility] Comment on above: Order Comment: Speci men Type: BLOOD SPECIMENOrdering Facility: [facility] Address: [address] [place] [address] Performed By: #### 5 7021-8 ####[facility] [id number] [place] [address] [place] MCHC (RBC) [Mass/Vol] 33.6 g/dL Normal 30.5-36.0 [facility] Comment on above: Order Comment: Speci men Type: BLOOD SPECIMENOrdering Facility: [facility] Address: [address] [place] [address] Performed By: #### 5 7021-8 ####[facility] [id number] [place] [address] [place] MCV (RBC) [Entitic vol] 88.3 fL Normal 80.0-100.0 [facility] Comment on above: Order Comment: Speci men Type: BLOOD SPECIMENOrdering Facility: [facility] Address: [address] [place] [address] Performed By: #### 5 7021-8 ####[facility] [id number] [place] [address] [place] Monocytes (Bld) [#/Vol] 0.85 10*3/uL Normal <0.87 [facility] Comment on above: Order Comment: Speci men Type: BLOOD SPECIMENOrdering Facility: [facility] Address: [address] [place] [address] Performed By: #### 5 7021-8 ####[facility] [id number] [place] [address] [place] Monocytes/100 WBC (Bld) 7.8 % Normal [facility] Comment on above: Order Comment: Speci men Type: BLOOD SPECIMENOrdering Facility: [facility] Address: [address] [place] [address] Performed By: #### 5 7021-8 ####[facility] [id number] [place] [address] [place] Neutrophils (Bld) [#/Vol] 7.33 10*3/uL Normal 1.45-7.50 [facility] Comment on above: Order Comment: Speci men Type: BLOOD SPECIMENOrdering Facility: [facility] Address: [address] [place] [address] Performed By: #### 5 7021-8 ####[facility] [id number] [place] [address] [place] Neutrophils/100 WBC (Bld) 66.9 % Normal [facility] Comment on above: Order Comment: Speci men Type: BLOOD SPECIMENOrdering Facility: [facility] Address: [address] [place] [address] Performed By: #### 5 7021-8 ####[facility] [id number] [place] [address] [place] Nucleated RBC (Bld) [#/Vol] 10*3/uL Normal <0.01 [facility] Comment on above: Order Comment: Speci men Type: BLOOD SPECIMENOrdering Facility: [facility] Address: [address] [place] [address] Performed By: #### 5 7021-8 ####[facility] [id number] [place] [address] [place] Nucleated RBC/100 WBC (Bld) [Ratio] 0.0 /100 WBC Normal [facility] Comment on above: Order Comment: Speci men Type: BLOOD SPECIMENOrdering Facility: [facility] Address: [address] [place] [address] Performed By: #### 5 7021-8 ####[facility] JOSI [id number] [place] [address] [place] Platelet mean volume (Bld) [Entitic vol] 9.6 fL Normal 9.0-12.7 [facility] Comment on above: Order Comment: Speci men Type: BLOOD SPECIMENOrdering Facility: [facility] Address: [address] [place] [address] Performed By: #### 5 7021-8 ####[facility] RONNINASHVILLELOBITODean [id number] [place] [address] [place] Platelets (Bld) [#/Vol] 286 10*3/uL Normal 150-400 [facility] Comment on above: Order Comment: Speci men Type: BLOOD SPECIMENOrdering Facility: [facility] Address: [address] [place] [address] Performed By: #### 5 7021-8 ####[facility] [id number] [place] [address] [place] RBC (Bld) [#/Vol] 4.62 10*6/uL Normal 3.90-5.20 [facility] Comment on above: Order Comment: Speci men Type: BLOOD SPECIMENOrdering Facility: [facility] Address: [address] [place] [address] Performed By: #### 5 7021-8 ####[facility] [id number] [place] [address] [place] WBC (Bld) [#/Vol] 10.94 10*3/uL Normal 3.70-11.00 [facility] Comment on above: Order Comment: Speci men Type: BLOOD SPECIMENOrdering Facility: [facility] Address: [address] [place] [address] Performed By: #### 5 7021-8 ####[facility] [id number] [place] [id number] [place] Comprehensive metabolic 2000 panelOrdered By: Felicity Lo on 06-17-2024 Albumin [Mass/Vol] 4.2 g/dL 3.9 - 4.9 g/dL [facility] ALP [Catalytic activity/Vol] 130 U/L High 34 - 123 U/L [facility] ALT [Catalytic activity/Vol] 17 U/L 7 - 38 U/L [facility] Anion gap [Moles/Vol] 8 mmol/L 8 - 15 mmol/L [facility] AST [Catalytic activity/Vol] 18 U/L 13 - 35 U/L [facility] Bilirubin [Mass/Vol] 0.3 mg/dL 0.2 - 1 .3 mg/dL [facility] Calcium [Mass/Vol] 8.9 mg/dL 8.5 - 10. 2 mg/dL [facility] Chloride [Moles/Vol] 103 mmol/L 98 - 10 7 mmol/L [facility] CO2 [Moles/Vol] 25 mmol/L 22 - 30 mmol/L [facility] Creatinine [Mass/Vol] 0.77 mg/dL 0.58 - 0.96 mg/dL [facility] GFR/1.73 sq M.predicted among non-blacks MDRD (S/P/Bld) [Vol rate/Area] 83 mL/min/{1.73_m2} - PINF [facility] Comment on above: Estimated Glomerular Filtration Rate (eGFR) is calculated using the 2020 CKD-EPI creatinine equation. This equation utilizes serum creatinine, sex, and age as parameters. The creatinine assay has traceable calibration to isotope dilution-mass spectrometry. Refer to KDIGO guidelines for clinical interpretation. In patients with unstable renal function, e.g. those with acute kidney injury, the eGFR may not accurately reflect actual GFR. Glucose [Mass/Vol] 103 mg/dL High 74 - 99 mg/dL [facility] Comment on above: The [place] Diabete s Association (ADA) provides guidance for cutoff values for fasting glucose and random glucose. The ADA defines fasting as no caloric intake for at least 8 hours. Fasting plasma glucose results between 100 to 125 mg/dL indicate increased risk for diabetes (prediabetes). Fasting plasma glucose results greater than or equal to 126 mg/dL meet the criteria for diagnosis of diabetes. In the absence of unequivocal hyperglycemia, results should be confirmed by repeat testing. In a patient with classic symptoms of hyperglycemia or hyperglycemic crisis, random plasma glucose results greater than or equal to 200 mg/dL meet the criteria for diagnosis of diabetes. Reference: Standards of Medical Care in Diabetes 2016, [place] Diabetes Association. Diabetes Care. 2016.39(Suppl 1). Interpretation and review of laboratory results Abnormal [facility] Potassium [Moles/Vol] 4.2 mmol/L 3.7 - 5.1 mmol/L [facility] Protein [Mass/Vol] 7.2 g/dL 6.3 - 8.0 g/dL [facility] Sodium [Moles/Vol] 136 mmol/L 136 - 144 mmol/L [facility] Urea nitrogen [Mass/Vol] 22 mg/dL High 7 - 21 mg/dL [facility] Comprehensive metabolic 2000 panelon 06-17-2024 Albumin [Mass/Vol] 4.2 g/dL Normal 3.9-4.9 [facility] Comment on above: Order Comment: Speci men Type: BLOOD SPECIMENOrdering Facility: [facility] Address: [address] [place] [address] Performed By: #### 2 4323-8 ####[facility] [id number] [place] [address] [place] ALP [Catalytic activity/Vol] 130 U/L High 34-123 [facility] Comment on above: Order Comment: Speci men Type: BLOOD SPECIMENOrdering Facility: [facility] Address: [address] [place] [address] Performed By: #### 2 4323-8 ####[facility] [id number] [place] [address] [place] ALT [Catalytic activity/Vol] 17 U/L Normal 7-38 [facility] Comment on above: Order Comment: Speci men Type: BLOOD SPECIMENOrdering Facility: [facility] Address: [address] [place] [address] Performed By: #### 2 4323-8 ####[facility] MARY KATE MILLTOWNCLIA [id number] [place] [address] [place] Anion gap [Moles/Vol] 8 mmol/L Normal 8-15 [facility] Comment on above: Order Comment: Speci men Type: BLOOD SPECIMENOrdering Facility: [facility] Address: [address] [place] [address] Performed By: #### 2 4323-8 ####[facility] MILLTOWNCLIA [id number] [place] [address] [place] AST [Catalytic activity/Vol] 18 U/L Normal 13-35 [facility] Comment on above: Order Comment: Speci men Type: BLOOD SPECIMENOrdering Facility: [facility] Address: [address] [place] [address] Performed By: #### 2 4323-8 ####[facility] MILLWNCLIA [id number] [place] [address] [place] Bilirubin [Mass/Vol] 0.3 mg/dL Normal 0.2-1.3 [facility] Comment on above: Order Comment: Speci men Type: BLOOD SPECIMENOrdering Facility: [facility] Address: [facility] [place] [facility] [place] [address] Performed By: #### 2 4323-8 ####[facility] MILLTOWNCLIA [id number] [place] [address] [place] Calcium [Mass/Vol] 8.9 mg/dL Normal 8.5-10.2 [facility] Comment on above: Order Comment: Speci men Type: BLOOD SPECIMENOrdering Facility: [facility] Address: [facility] [place] [facility] [place] [id number] Performed By: #### 2 4323-8 ####[facility] MILLTOWNCLIA [id number] [place] [address] [place] Chloride [Moles/Vol] 103 mmol/L Normal 98-107 [facility] Comment on above: Order Comment: Speci men Type: BLOOD SPECIMENOrdering Facility: [facility] Address: [address] [place] [address] Performed By: #### 2 4323-8 ####[facility] [id number] [place] [address] [place] CO2 [Moles/Vol] 25 mmol/L Normal 22-30 [facility] Comment on above: Order Comment: Speci men Type: BLOOD SPECIMENOrdering Facility: [facility] Address: [address] [place] [address] Performed By: #### 2 4323-8 ####[facility] [id number] [place] [address] [place] Creatinine [Mass/Vol] 0.77 mg/dL Normal 0.58-0.96 [facility] Comment on above: Order Comment: Speci men Type: BLOOD SPECIMENOrdering Facility: [facility] Address: [address] [place] [address] Performed By: #### 2 4323-8 ####[facility] [id number] [place] [address] [facility] Creatinine and Glomerular filtration rate.predicted panel (S/P/Bld) 83 mL/min/1.73m??? Normal >=60 [facility] Comment on above: Order Comment: Speci men Type: BLOOD SPECIMENOrdering Facility: [facility] Address: [address] [place] [address] Result Comment: Angelica mated Glomerular Filtration Rate (eGFR) is calculated using the 2020 CKD-EPI creatinine equation. This equation utilizes serum creatinine, sex, and age as parameters. The creatinine assay has traceable calibration to isotope dilution-mass spectrometry. Refer to KDIGO guidelines for clinical interpretation. In patients with unstable renal function, e.g. those with acute kidney injury, the eGFR may not accurately reflect actual GFR. Performed By: #### 2 4323-8 ####[facility] HOSPITALWNCLIA [id number] [place] [address] [place] Glucose [Mass/Vol] 103 mg/dL High 74-99 [facility] Comment on above: Order Comment: Speci men Type: BLOOD SPECIMENOrdering Facility: [facility] Address: [address] [place] [address] Result Comment: The [place] Diabetes Association (ADA) provides guidance for cutoff values for fasting glucose and random glucose. The ADA defines fasting as no caloric intake for at least 8 hours. Fasting plasma glucose results between 100 to 125 mg/dL indicate increased risk for diabetes (prediabetes). Fasting plasma glucose results greater than or equal to 126 mg/dL meet the criteria for diagnosis of diabetes. In the absence of unequivocal hyperglycemia, results should be confirmed by repeat testing. In a patient with classic symptoms of hyperglycemia or hyperglycemic crisis, random plasma glucose results greater than or equal to 200 mg/dL meet the criteria for diagnosis of diabetes. Reference: Standards of Medical Care in Diabetes 2016, [place] Diabetes Association. Diabetes Care. 2016.39(Suppl 1). Performed By: #### 2 4323-8 ####[facility] [id number] [place] [address] [place] Potassium [Moles/Vol] 4.2 mmol/L Normal 3.7-5.1 [facility] Comment on above: Order Comment: Reggiei men Type: BLOOD SPECIMENOrdering Facility: [facility] Address: [address] [place] [address] Performed By: #### 2 4323-8 ####[facility] [id number] [place] [address] [place] Protein [Mass/Vol] 7.2 g/dL Normal 6.3-8.0 [facility] Comment on above: Order Comment: Reggiei men Type: BLOOD SPECIMENOrdering Facility: [facility] Address: [address] [place] [address] Performed By: #### 2 4323-8 ####[facility] [id number] [place] [address] [place] Sodium [Moles/Vol] 136 mmol/L Normal 136-144 [facility] Comment on above: Order Comment: Speci men Type: BLOOD SPECIMENOrdering Facility: [facility] Address: [address] [place] [address] Performed By: #### 2 4323-8 ####[facility] [id number] [place] [address] [place] Urea nitrogen [Mass/Vol] 22 mg/dL High 7- [facility] Comment on above: Order Comment: Speci men Type: BLOOD SPECIMENOrdering Facility: [facility] Address: [address] [place] [address] Performed By: #### 2 4323-8 ####[facility] [id number] [place] [address] [place] Lipid 1996 panelon 5 Cholesterol [Mass/Vol] 231 mg/dL High <200 [facility] Comment on above: Order Comment: Speci men Type: BLOOD SPECIMENOrdering Facility: [facility] Address: [address] [place] [address] Result Comment: <200 mg/dL, Desirable 200-239 mg/dL, Borderline high >239 mg/dL, High Performed By: #### 2 4331-1 ####[facility] LABCLIA [id number] [place] [address] [place] [facility] [id number] [place] [address] [place]#### 3016-3 ####[facility] LABCLIA [id number] [place] [address] [place] Cholesterol in HDL [Mass/Vol] 64 mg/dL Normal >39 [facility] Comment on above: Order Comment: Speci men Type: BLOOD SPECIMENOrdering Facility: [facility] Address: [facility] [place] [address] Result Comment: 40-5 9 mg/dL, Acceptable >59 mg/dL, High: Negative risk factor for coronary heart disease <40 mg/dL, Low: Positive risk factor for coronary heart disease Performed By: #### 2 4331-1 ####[facility] LABCLIA [id number] [address] [id number] [place] [address] [place]#### 3016-3 ####[facility] LABCLIA [id number] [address] [place] Cholesterol in LDL [Mass/Vol] 135 mg/dL High <100 [facility] Comment on above: Order Comment: Speci men Type: BLOOD SPECIMENOrdering Facility: [facility] Address: [address] [place] [address] Result Comment: <100 mg/dL, Optimal 100-129 mg/dL, Near optimal/above optimal 130-159 mg/dL, Borderline high 160-189 mg/dL, High >189 mg/dL, Very high Secondary prevention optimal LDL Cholesterol levels are recommended to be < 70 mg/dL Performed By: #### 2 4331-1 ####[facility] LABCLIA [id number] [place] [id number] [facility] [id number] [place] [address] [place]#### 3016-3 ####[facility] LABCLIA [id number] [place] [id number] [place] Cholesterol in LDL/Cholesterol in HDL [Mass ratio] 2.11 {ratio} Normal <2.54 [facility] Comment on above: Order Comment: Speci men Type: BLOOD SPECIMENOrdering Facility: [facility] Address: [address] [place] [address] Result Comment: Alia brenner: 1. National Cholesterol Education Program ATP III Guideline At-A-Glance Quick Desk Reference: National Heart, Lung, and Blood [place]. National Institutes of Health. 2001: NIH Publication No. 01-3305. 2. An International Atherosclerosis Society position paper: global recommendations for the management of dyslipidemia: executive summary, Atherosclerosis. 2014: 232(2):410-413. Performed By: #### 2 4331-1 ####[facility] LABCLIA [id number] [address] STATES [facility] [id number] [place] [address] [place]#### 3016-3 ####[facility] LABCLIA [id number] [place] [address] [place] Cholesterol in VLDL [Mass/Vol] 32 mg/dL High <30 [facility] Comment on above: Order Comment: Speci men Type: BLOOD SPECIMENOrdering Facility: [facility] Address: [address] [place] [address] Performed By: #### 2 4331-1 ####[facility] LABCLIA [id number] [address] STATES OF [facility] [id number] [place] [address] [place]#### 3016-3 ####[facility] LABCLIA [id number] [place] [address] [place] Cholesterol non HDL [Mass/Vol] 167 mg/dL High <130 [facility] Comment on above: Order Comment: Speci men Type: BLOOD SPECIMENOrdering Facility: [facility] Address: [address] [place] [address] Result Comment: <130 mg/dL, Optimal 130-159 mg/dL, Near optimal/above optimal 160-189 mg/dL, Borderline high 190-219 mg/dL, High >219 mg/dL, Very high Secondary prevention optimal non HDL Cholesterol levels are recommended to be <100 mg/dL Performed By: #### 2 4331-1 ####[facility] LABCLIA [id number] [place] [id number] [place] [address] [place]#### 3016-3 ####[facility] LABCLIA [id number] [place] [address] [place] Cholesterol.total/Cho lesterol in HDL [Mass ratio] 3.61 {ratio} Normal <5.10 [facility] Comment on above: Order Comment: Speci men Type: BLOOD SPECIMENOrdering Facility: [facility] Address: [address] [place] [address] Performed By: #### 2 4331-1 ####[facility] LABCLIA [id number] [place] [id number] [place] [address] [place]#### 3016-3 ####[facility] LABCLIA [id number] [place] [address] [place] FASTING TIME 12 hrs Normal [facility] Comment on above: Order Comment: Speci men Type: BLOOD SPECIMENOrdering Facility: [facility] Address: [address] [place], [place] [address] Performed By: #### 2 4331-1 ####[facility] LABCLIA [id number] [address]CL[address] [id number] [place] [address] [place]#### 3016-3 ####[facility] LABCLIA [id number] [place] [address] [place] Triglyceride [Mass/Vol] 161 mg/dL High <150 [facility] Comment on above: Order Comment: Speci men Type: BLOOD SPECIMENOrdering Facility: [facility] Address: [address] [place] [address] Result Comment: <150 mg/dL, Normal 150-199 mg/dL, Borderline high 200-499 mg/dL, High >499 mg/dL, Very high Performed By: #### 2 4331-1 ####[facility] LABCLIA [id number] [id number] [place] [address] [place]#### 3016-3 ####[facility] LABCLIA [id number] [place] [address] [place] TSH SerPl-aCncon 06-17-2024 TSH Qn 2.320 m[IU]/L Normal 0.270-4.200 [facility] Comment on above: Order Comment: Speci men Type: BLOOD SPECIMENOrdering Facility: [facility] Address: [address] [place] [address] Performed By: #### 2 4331-1 ####[facility] LABCLIA [id number] [address] [id number] [place] [address] [place]#### 3016-3 ####[facility] LABCLIA [id number] [place] [address] [place] Urinalysis complete panel (U )on 06-17-2024 Bacteria LM.HPF (Urine sed) [#/Area] Negative Negative /HPF [facility] Bilirubin Ql (U) Negative Negative [facility] Clarity (Unsp spec) Clear Clear [facility] Color (U) Yellow Yellow [facility] Epithelial cells LM.HPF (Urine sed) [#/Area] None Seen /HPF [facility] Glucose Test strip (U) [Mass/Vol] Negative Negative [facility] Hemoglobin Ql (U) Negative Negative [facility] Hyaline casts (Urine sed) [#/Area] 0 /[LPF] 0 /LPF [facility] Ketones Ql (U) Negative Negative [facility] Leukocyte esterase Test strip Ql (U) Negative Negative [facility] Nitrite Ql (U) Negative Negative [facility] pH (U) 5.5 [pH] NINF - 8.5 [facility] Protein (U) [Mass/Vol] Negative Negative [facility] RBC LM.HPF (Urine sed) [#/Area] 0-2 /HPF 0-2 /HPF [facility] Specific gravity (U) [Rel density] 1.019 1.005 - 1.030 [facility] Urobilinogen Ql (U) 0.2 EU/dL 0.2-1.0 EU/dL [facility] WBC LM.HPF (Urine sed) [#/Area] 0-5 /HPF 0-5 /HPF [facility] This test was devkeyuro ped and its performance characteristics determined by [facility]'s [facility] Pathology and Laboratory Medicine [place] (RT-PLMI). It has not been cleared or approved by the FDA. RT-PLLA is regulated under CLIA as qualified to perform high-complexity testing. This test is used for clinical purposes. It should not be regarded as investigational or for research. [facility] Bacteria LM.HPF (Urine sed) [#/Area] Negative Normal Negative [facility] Comment on above: Order Comment: Speci men Type: URINE SPECIMENOrdering Facility: [facility] Address: [address] [place] [address] Performed By: #### 2 4356-8 ####[facility] LABCLIA [id number] [place] [address] [place] Bilirubin Ql (U) Negative Normal Negative [facility] Comment on above: Order Comment: Speci men Type: URINE SPECIMENOrdering Facility: [facility] Address: [address] [place] [address] Performed By: #### 2 4356-8 ####[facility] LABCLIA [id number] [place] [address] [place] Clarity (Unsp spec) Clear Normal Clear [facility] Comment on above: Order Comment: Speci men Type: URINE SPECIMENOrdering Facility: [facility] Address: [address] [place] [address] Performed By: #### 2 4356-8 ####[facility] LABCLIA [id number] [place] [address] [place] Color (U) Yellow Normal Yellow [facility] Comment on above: Order Comment: Speci men Type: URINE SPECIMENOrdering Facility: [facility] Address: [address] [place] [address] Performed By: #### 2 4356-8 ####[facility] LABCLIA [id number] [place] [address] [place] Epithelial cells LM.HPF (Urine sed) [#/Area] None Seen Normal [facility] Comment on above: Order Comment: Speci men Type: URINE SPECIMENOrdering Facility: [facility] Address: [address] [place] [address] Performed By: #### 2 4356-8 ####[facility] LABCLIA [id number] [place] [address] [place] Glucose Test strip (U) [Mass/Vol] Negative Normal Negative [facility] Comment on above: Order Comment: Speci men Type: URINE SPECIMENOrdering Facility: [facility] Address: [address] [place] [address] Performed By: #### 2 4356-8 ####[facility] LABCLIA [id number] [place] [address] [place] Hemoglobin Ql (U) Negative Normal Negative [facility] Comment on above: Order Comment: Speci men Type: URINE SPECIMENOrdering Facility: [facility] Address: [address] [place] [address] Performed By: #### 2 4356-8 ####[facility] LABCLIA [id number] [place] [address] [place] Hyaline casts (Urine sed) [#/Area] 0 /[LPF] Normal 0 /LPF [facility] Comment on above: Order Comment: Speci men Type: URINE SPECIMENOrdering Facility: [facility] Address: [address] [place] [address] Performed By: #### 2 4356-8 ####[facility] LABCLIA [id number] [place] [address] [place] Ketones Ql (U) Negative Normal Negative [facility] Comment on above: Order Comment: Speci men Type: URINE SPECIMENOrdering Facility: [facility] Address: [address] [place] [address] Performed By: #### 2 4356-8 ####[facility] LABCLIA [id number] [place] [address] [place] Leukocyte esterase Test strip Ql (U) Negative Normal Negative [facility] Comment on above: Order Comment: Speci men Type: URINE SPECIMENOrdering Facility: [facility] Address: [address] [place] [address] Performed By: #### 2 4356-8 ####[facility] LABCLIA [id number] [place] [address] [place] Nitrite Ql (U) Negative Normal Negative [facility] Comment on above: Order Comment: Speci men Type: URINE SPECIMENOrdering Facility: [facility] Address: [address] [place] [address] Performed By: #### 2 4356-8 ####[facility] LABCLIA [id number] [place] [address] [place] pH (U) 5.5 [pH] Normal <8.5 [facility] Comment on above: Order Comment: Speci men Type: URINE SPECIMENOrdering Facility: [facility] Address: [address] [place] [address] Performed By: #### 2 4356-8 ####[facility] LABIA [id number] [place] [address] [place] Protein (U) [Mass/Vol] Negative Normal Negative [facility] Comment on above: Order Comment: Speci men Type: URINE SPECIMENOrdering Facility: [facility] Address: [address] [place] [address] Performed By: #### 2 4356-8 ####[facility] LABIA [id number] [place] [address] [place] RBC LM.HPF (Urine sed) [#/Area] 0-2 /HPF Normal 0-2 /HPF [facility] Comment on above: Order Comment: Speci men Type: URINE SPECIMENOrdering Facility: [facility] Address: [address] [place] [address] Performed By: #### 2 4356-8 ####[facility] LABIA [id number] [place] [address] [place] Specific gravity (U) [Rel density] 1.019 Normal 1.005-1.030 [facility] Comment on above: Order Comment: Speci men Type: URINE SPECIMENOrdering Facility: [facility] Address: [address] [place] [address] Performed By: #### 2 4356-8 ####[facility] LABIA [id number] [place] [address] [place] Urobilinogen Ql (U) 0.2 EU/dL Normal 0.2-1.0 EU/dL Cl [facility] Comment on above: Order Comment: Speci men Type: URINE SPECIMENOrdering Facility: [facility] Address: [address] [place] [address] Performed By: #### 2 4356-8 ####[facility] LABIA [id number] [place] [address] [place] WBC LM.HPF (Urine sed) [#/Area] 0-5 /HPF Normal 0-5 /HPF [facility] Comment on above: Order Comment: Speci men Type: URINE SPECIMENOrdering Facility: [facility] Address: [address] [place] [address] Performed By: #### 2 4356-8 ####[facility] LABIA [id number] [address] [place] CNOVon 06-10-2024 CNOV Office Visit (FPDOYL ) BRENT MOSQUEDA ([id number]) 1950 F Date Time Provider Department 06/10/24 2:15 PM PORTIA CALHOUN FPDOYL During your visit today, we recorded the following information about you: Temperature Pulse Blood pressure Weight 98.2 degrees 77/minute 130/80 85.3 kg Height 1.575 m Portia Calhoun DO 06/20/2024 10:53 PM Signed [facility] Family Medicine Reji Calhoun DO [address] [place] [address] Date of Evaluation: 06/10/2024 Patient Name: Brent Mosqueda : 1950 Chief Complaint: Patient presents with: Wellness: Yearly. Headache: Sharp pain. Intermittent. Left side. X 1 week Subjective Ms. Mosqueda is a 73 year old female who presents with the following complaint(s): The history is provided by the patient. No sign language instructor was used. Headache This is a new problem. The current episode started more than 1 week ago. The problem has not changed since onset.The headache is associated with nothing. The pain is located in the Left unilateral and temporal region. The quality of the pain is described as sharp (sharp fast ice pick type pain.). The pain is moderate. The pain does not radiate. Pertinent negatives include no palpitations and no shortness of breath. Anxiety Pertinent negatives include no weakness. This is a chronic problem. Progression since onset: Stable. Depression Pertinent negatives include no weakness. This is a chronic problem. Progression since onset: Stable. Review of Systems Constitutional: Negative for fatigue and unexpected weight change. HENT: Negative for nosebleeds. Eyes: Negative for redness and visual disturbance. Respiratory: Negative for apnea, cough and shortness of breath. Cardiovascular: Negative for chest pain, palpitations and leg swelling. Genitourinary: Negative for hematuria. Musculoskeletal: Positive for back pain. Neurological: Positive for headaches. Negative for dizziness, weakness, light-headedness and numbness. Hematological: Does not bruise/bleed easily. Psychiatric/Behavioral: Positive for depression. The patient is nervous/anxious. 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 Rizo REMOVAL GALLBLADDER FAMILY HISTORY Problem Relation Age of Onset other (multiple myeloma) Mother COPD Father No Known Problems Sister No Known Problems Brother No Known Problems Brother Colon Cancer No Family History Social History Tobacco Use Smoking status: Never Passive exposure: Never Smokeless tobacco: Never Vaping Use Vaping status: Never Used Substance Use Topics Alcohol use: Yes Comment: rare occassion Drug use: Never Current Outpatient Medications Medication Sig pregabalin (LYRICA) 100 mg capsule Take 1 capsule by mouth three times a day. metoprolol succinate ER (TOPROL XL) 25 mg 24 hr tablet Take 1 tablet by mouth every afternoon. ALIGN 4 mg cap TAKE ONE CAPSULE BY MOUTH ONCE DAILY` hydrOXYzine HCl (ATARAX) 25 mg tablet take one tablet by mouth three times a day as needed DULoxetine (CYMBALTA) 60 mg capsule Take 1 capsule by mouth once daily. ascorbic acid, vitamin C, (VITAMIN C) 500 mg tablet Take 1 tablet by mouth once daily. vit C/E/Zn/coppr/lutein/ada jennifer (PRESERVISION AREDS-2 ORAL) Take 1 tablet by mouth twice daily. No current facility-administered medications for this visit. I have confirmed and edited as necessary the past medical, family and social histories, HPI, and ROS obtained by others. Objective BP 142/84 Pulse 77 Temp 98.2 Ht 5' 2 (1.58m) Wt 188 lb (85.3kg) SpO2 97% BMI 34.38 kg/(m2). Physical Exam Vitals and nursing note reviewed. Constitutional: General: She is not in acute distress. Appearance: Normal appearance. She is well-developed. She is obese. She is not ill-appearing. HENT: Head: Normocephalic. Nose: Nose normal. Mouth/Throat: Pharynx: Uvula midline. Eyes: General: Lids are normal. Vision grossly intact. Gaze aligned appropriately. Extraocular Movements: Extraocular movements intact. Conjunctiva/sclera: Conjunctivae normal. Pupils: Pupils are equal, round, and reactive to light. Neck: Thyroid: No thyroid mass, thyromegaly or thyr (more content not included)... Normal [facility] CNTHERAPYon 06-04-2024 CNTHERAPY OT/PT/Speech Visit (PTWS) BRENT MOSQUEDA ([id number]) 1950 F Date Time Provider Department 06/04/24 8:00 AM PÉREZ LING PTWS Date Time Provider Department Center 06/04/2024 8:00 AM [id number], COREY PTWS Mary Kate Ronni Reason for Visit: PT Eval [747] Visit Diagnosis:Lumbar radiculopathy [M54.16] Allergies As of Date: 06/04/2024 (No Known Allergies) Date Reviewed: 05/11/2024 Reviewed by: Kayla Barkley MA - Fully Assessed Prescriptions as of 06/25/2024 - Bifidobacterium Infantis (ALIGN, B.INFANTSHAHRIAR,) 4 mg cap Take 1 capsule by mouth once daily. - carBAMazepine XR (TEGRETOL XR) 100 mg 12 hr tablet Take 1 tablet by mouth two times a day for 7 days, THEN 2 tablets two times a day. - pregabalin (LYRICA) 100 mg capsule Take 1 capsule by mouth three times a day. - metoprolol succinate ER (TOPROL XL) 25 mg 24 hr tablet Take 1 tablet by mouth every afternoon. - hydrOXYzine HCl (ATARAX) 25 mg tablet take one tablet by mouth three times a day as needed - DULoxetine (CYMBALTA) 60 mg capsule Take 1 capsule by mouth once daily. - ascorbic acid, vitamin C, (VITAMIN C) 500 mg tablet Take 1 tablet by mouth once daily. - vit C/E/Zn/coppr/lutein/ada jennifer (PRESERVISION AREDS-2 ORAL) Take 1 tablet by mouth twice daily. Normal [facility] CNOVon 05-11-2024 CNOV Office Visit (AGOCMR ) BRENT MOSQUEDA ([id number]) 1950 F Date Time Provider Department 05/11/24 1:30 PM STEPHEN RIZO AGOR During your visit today, we recorded the following information about you: Pulse Blood pressure Weight Height 76/minute 126/77 83.8 kg 1.575 m Stephen Rizo DO 05/11/2024 2:21 PM Signed [facility] DO [facility] Spine Surgeon [address], [place] [address] [address] [place] [address] Phone: [phone] FAX: [phone] SPINE SURGERY OUTPATIENT CONSULT SERVICE DATE: 05/11/2024 LAST OFFICE VISIT: 02/17/2024 DATE OF : 1950 REFERRING PROVIDER: No referring provider defined for this encounter. CHIEF COMPLAINT: Low back pain, bilateral leg pain SURGERY: L4-L5 posterior spinal fusion 11/20/2023 PREOPERATIVE SYMPTOMS: severe bilateral leg pain HISTORY OF PRESENT ILLNESS Brent Mosqueda is a 73 year old female presenting alone. She was last evaluated in office on 02/17/2024 for her 3 month post operative appointment. She reported she continued to improve. She stated she occasionally had leg pain from time to time but it quickly resolved. She noted her constant leg pain resolved. She reported her back pain was continuing to improve. Radiographic imaging of the lumbar spine displayed an L4-5 posterolateral fusion with hardware in stable position. It was discussed for patient to possibly participate in physical therapy, patient stated she did not think she needed t his. It was recommended to follow-up in 3 months for her 6 month appointment prompting today's visit. Today she reports ongoing bilateral low back pain that has worsened over the last 3 months. She states pain starts in her bilateral low back with radiation down the anterior aspect of her bilateral thighs extending to the knees. She states today the lateral aspect of her right hip is most bothersome. She notes her left knee feels weak at times and feels like it is going to give out when ambulating. She denies any loss of bowel or bladder function. She reports treating her symptoms with oral medications with minimal relief. States that the back pain is across her back and not centered over the SI joints. She presents for evaluation, image review and plan of care. 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 Rizo REMOVAL GALLBLADDER FAMILY HISTORY Problem Relation Age of Onset other (multiple myeloma) Mother COPD Father No Known Problems Sister No Known Problems Brother No Known Problems Brother Colon Cancer No Family History Social History Tobacco Use Smoking status: Never Passive exposure: Never Smokeless tobacco: Never Vaping Use Vaping status: Never Used Substance Use Topics Alcohol use: Yes Comment: rare occassion Drug use: Never ALLERGIES No Known Allergies MEDICATIONS: pregabalin (LYRICA) 100 mg capsule Take 1 capsule by mouth three times a day. metoprolol succinate ER (TOPROL XL) 25 mg 24 hr tablet Take 1 tablet by mouth every afternoon. ALIGN 4 mg cap TAKE ONE CAPSULE BY MOUTH ONCE DAILY` hydrOXYzine HCl (ATARAX) 25 mg tablet take one tablet by mouth three times a day as needed DULoxetine (CYMBALTA) 60 mg capsule Take 1 capsule by mouth once daily. ascorbic acid, vitamin C, (VITAMIN C) 500 mg tablet Take 1 tablet by mouth once daily. vit C/E/Zn/coppr/lutein/ada jennifer (PRESERVISION AREDS-2 ORAL) Take 1 tablet by mouth twice daily. REVIEW OF SYSTEMS Review of Systems OBJECTIVE: There were no vitals taken for this visit. PHYSICAL EXAM GENERAL APPEARANCE: Well nourished, well developed, and no apparent distress. NEURO PSYCH: Patient oriented to person, place, and time. Mood pleasant. Benign affect. CARDIOVASCULAR: Palpable pulses. No edema noted. No varicosities. SKIN: Head, neck, trunk, and extremities dry, intact and without lesions. LYMPHATICS: No palpable nodes in axillae areas. Groin exam deferred MUSCULOSKELETAL PALPATION: SPINOUS PROCESS: No pain. PARASP (more content not included)... Normal [facility] XR LUMBAR 2V AP/LATon 2023 XR LUMBAR 2V AP/LAT * * *Final Report* * * DATE OF EXAM: May 11 2024 1:25PM A1X 5229 - XR LUMBAR 2V AP/LAT / PROCEDURE REASON: S/P lumbar fusion * * * * Physician Interpretation * * * * EXAMINATION / TECHNIQUE: XR LUMBAR 2V AP/LAT HISTORY: s/p L4-5 fusion c/o gradually worsening bilat hip pain radiating down both legs, worse now than before surgery S/P lumbar fusion . COMPARISON: 02/16/2024 RESULT: L4-5 posterior spinal hardware is similar to prior. Stable mild lucency adjacent to the right L4 screw and left L5 screw. Lumbar vertebrae demonstrate normal height. Grade 1 retrolisthesis L2-3 and L3-4 and grade 1 anterolisthesis L4-5, unchanged. Disc space narrowing L5-S1. Scattered facet arthrosis. Scattered osteophytes. Right upper quadrant clips. Counting reference: Lumbosacral junction. For the purposes of this report, L4-5 is considered the level of the iliac crest and assume there are 5 lumbar-type vertebrae. Anatomic variant: None. IMPRESSION: Stable mild lucency adjacent to the right L4 screw and left L5 screw. Fiberglass Model Maker: PSCB Transcribe Date/Time: May 15 2024 4:35A Dictated by : DAVI DENNEY MD This examination was interpreted and the report reviewed and electronically signed by: DAVI DENNEY MD on May 15 2024 4:37AM EST [id number] Normal [facility] CONFIRM BLOOD TYPEon 024 ABO group Nom (Bld) A [facility] Rh Nom (Bld) Positive [facility] B. burgdorferi IgG and IgM p vijay (S)on 07-24-2023 B. burgdorferi IgG+IgM Qn (S) Negative Negative [facility] MR Lumbar spine WO contrasto n 07-24-2023 [facility] MRI LUMBAR SPINE WO IVCONon 07-24-2023 MRI LUMBAR SPINE WO IVCON * * *Final Report* * * DATE OF EXAM: Jul 24 2023 7:43PM MDM 0303 - MRI LUMBAR SPINE WO IVCON / PROCEDURE REASON: multiple diagnoses * * * * Physician Interpretation * * * * EXAMINATION: MRI LUMBAR SPINE WO IVCON CLINICAL HISTORY: Leg weakness, bilateral Acute midline low back pain without sciatica Spinal stenosis of lumbar region with neurogenic claudication TECHNIQUE: Routine lumbosacral spine MR protocol without gadolinium. MQ: [id number] COMPARISON: None. RESULT: Counting reference: Lumbosacral junction. For the purposes of this report, L4-5 is considered the level of the iliac crest and assume there are 5 lumbar-type vertebrae. Anatomic variant: None. Localizer images: No additional findings. Alignment: There is anterolisthesis of L4 on 5. Bone marrow signal/fracture: No evidence of pathologic marrow infiltration. Hemangioma at the T11 level noted. Conus: The conus is within normal limits of signal intensity and morphology. Paraspinal soft tissues: Paraspinal soft tissues are unremarkable. Left-sided parapelvic renal cysts noted. Lower thoracic spine: Visualized lower thoracic canal and foramina are patent. T12-L1: There is no significant central canal or foraminal stenosis. L1-L2: Canal and foramina are patent. L2-L3: There is a broad disc bulge and facet arthropathy. There is no significant central canal or foraminal stenosis. L3-L4: There is a slight disc bulge and facet arthropathy. There is no significant central canal stenosis. There is mild left foraminal narrowing. L4-L5: There is degenerative spondylolisthesis with facet arthropathy and ligamentum flavum hypertrophy. There is moderate central spinal canal stenosis. There is mild right and [id number]-[id number] left foraminal narrowing. L5-S1: There is bilateral facet arthropathy and a broad posterior disc protrusion. The disc protrusion abuts but does not appear to compress the traversing S1 nerve roots. There is minimal narrowing of the central canal. There is moderate to severe right and mild left foraminal narrowing. Sacrum and iliac wings: The visualized sacrum and iliac wings are within normal limits. IMPRESSION: 1. Moderate central spinal canal stenosis at L4-5 secondary to degenerative spondylolisthesis, ligamentum flavum hypertrophy and facet hypertrophy. 2. Right foraminal stenosis at L5-S1 3. Broad central disc protrusion at L5-S1 4. Lesser degrees of degenerative changes at other levels as detailed above. Anatomic Lumbar Variant: None. L4-5 is considered the level of the iliac crest and assume there are 5 lumbar-type vertebrae. For this patient, the iliac crests are at the mid L5 level. Fiberglass Model Maker: DESTIN Transcribe Date/Time: Jul 24 2023 11:20P Dictated by : TERE SANABRIA MD This examination was interpreted and the report reviewed and electronically signed by: TERE SANABRIA MD on Jul 24 2023 11:27PM EST [id number] [facility] OPERATIVE NOon 02-19-2023 OPERATIVE NO HNO ID: [id number] Author: Franko Mauro DPM Service: Podiatry Author Type: Physician Type: Operative Report Filed: 02/27/2023 10:08 PM Note Text: [facility] - Operative Notes [facility] 1950 AGE: 72 SEX: F CSN: [id number] [facility]: LOCATION: [place] [address] ATTENDING PHYSICIAN: FRANKO MAURO DATE OF SERVICE: 02/14/2023 PREOPERATIVE DIAGNOSES: 1. Midfoot arthritis multiple joints, right foot. 2. Tarsal bone instability with subluxation. 3. Pain, right foot. 4. Flail joint, right foot. 5. Contracture, right great toe. POSTOPERATIVE DIAGNOSES: 1. Midfoot arthritis multiple joints, right foot. 2. Tarsal bone instability with subluxation. 3. Pain, right foot. 4. Flail joint, right foot. 5. Contracture, right great toe. OPERATION: 1. Midfoot arthrodesis multiple joints, right foot. 2. Tarsal bone subluxation, right foot. 3. [place] bone graft large right calcaneus. 4. Stress views, right foot. 5. Moss bunionectomy with lateral release, right foot. SURGEON: Franko Mauro DPM TRANSFORMER BUILDER: Marcia Cifuentes DPM, PGY-2 ANESTHESIA: General with popliteal block and adductor canal block. HEMOSTASIS: Maintained by pneumatic tourniquet about the right thigh for 1 hour total work time. ESTIMATED BLOOD LOSS: Minimal. MATERIALS: [employer] plates and screws along with SpeedPlate and a 4.0 cannulated screw measuring 40 in length. INJECTABLES: Ten mL of 0.25% Marcaine plain preoperatively. BRIEF INDICATION FOR PROCEDURE: This patient is a very well-known patient of mine at [facility] with a complaint of having a painful right foot deformity. She had an injury when she was younger. She has had a significant hallux abductovalgus deformity that is causing significant pain to her right foot. She has had what appears to be instability or subluxation between the 1st cuneiform and the intermediate cuneiform as seen on x-ray. She was also noted to have tarsal bone instability, a flail joint and midfoot arthritis with subchondral cyst. At this point I recommended surgical intervention since she failed all conservative methods consisting of injections, anti-inflammatories, orthotics, shoe gear modifications and would like to undergo surgical procedure. DESCRIPTION OF PROCEDURE: The patient was seen in the preoperative holding area, chart reviewed and consent was signed. Patient was then taken back to the operating room, placed on the operating table in normal supine position. Once general anesthetic was then obtained, a local block of 0.25% Marcaine plain was injected about the right foot. The patient had a popliteal block and adductor canal block. After this was then performed, the local was then performed. A tourniquet was placed about the right thigh but not yet inflated. At that point then attention was then directed to the right lower extremity in which the timeout was then performed. Esmarch was applied. Tourniquet was inflated to 250 mmHg about the right thigh. Attention was then directed to the lateral aspect of the right calcaneus in which a 2 cm incision was made along the lateral aspect of the calcaneal wall down into including subcutaneous tissue and a puncture wound was then made into the calcaneal wall. After the puncture was then made, I scooped out a significant amount of bone graft as well as a bone trephine was then inserted to remove any other bone grafting of the right calcaneus. After removing this, it was then sent off to the back table to be used at a later date and later in the procedure. At this point then the incision was then flushed and closed with 3-0 Prolene. Attention was then directed to the dorsal aspect of the 1st tarsometatarsal joint in which a 4.5 cm linear longitudinal incision was made along the dorsal aspect of the 1st tarsometatarsal joint, along the dorsal medial aspect of the right foot. It was incised down to including subcutaneous tissue in such a way that we opened up the joint and then then periosteum was reflected off the 1st tarsometatarsal joint. After the periosteum was reflected, then we cut the ligament and then I inserted a sagittal saw to plane the joint. After planing it, there was significant arthritis within the joint. I then released the Lisfranc ligament as well as the lateral side of the 1st metatarsal and the intersection between the 1st metatarsal and the intermediate cuneiform. After releasing it, I then released the plantar ligament to the tarsometaarsal joint and the valgus deformiity and therefore the bone had rotation. At that point I inserted a guide pin to help with rotation. At that point then a Moss bunionectomy was then performed with lateral release. I made a 2 cm incision at the level of the 1st metatarsophalangeal joint at the level of the joint surface, incised at (more content not included)... [facility] ANES POSTPROC EVALon 023 ANES POSTPROC EVAL HNO ID: [id number] Author: Rd Kennedy DO Service: Anesthesiology Author Type: Physician Type: Anesthesia Postprocedure Evaluation Filed: 02/14/2023 2:36 PM Note Text: POST ANESTHESIA EVALUATION NOTE : 1950 Procedure Summary Date: 02/14/23 Room / Location: [place] [address] / OR Anesthesia Start: 1234 Anesthesia Stop: 1409 Procedures: ARTHRODESIS MIDTARSAL MULTIPLE/TRANSVERSE (Right: Foot) GRAFT BONE EXTREMITY LOWER (Right: Foot) INTERNAL FIXATION TARSAL DISLOCATION OPEN (Right: Foot) BUNIONECTOMY MODIFIED MOSS (Right: Foot) Diagnosis: Dislocation of tarsometatarsal joint of right foot, initial encounter Arthritis of right ankle Right ankle pain, unspecified chronicity (Dislocation of tarsometatarsal joint of right foot, initial encounter [S93.324A]) (Arthritis of right ankle [M19.071]) (Right ankle pain, unspecified chronicity [M25.571]) Surgeons: Franko Mauro DPM Responsible Provider: Rd Kennedy DO Anesthesia Type: general, regional ASA Status: 2 Anesthesia Type: general, regional Airway Type: LMA Last Vitals Vitals Value Taken Time BP 126/66 02/14/23 1430 Temp 36.9 ?C (98.4 ?F) 02/14/23 1406 Pulse 79 02/14/23 1434 Resp 18 02/14/23 1430 SpO2 94 % 02/14/23 1434 Vitals shown include unvalidated device data. Post Anesthesia Patient Status Patient Evaluation: PACU. PACU/ICU Patient Condition: stable. Anticipated Disposition: phase 2 then home. Neurological Status: aware and responsive. Pulmonary Status: breathing comfortably on room air Airway Control: returned to baseline unsupported. Cardiovascular Status: stable. Pain Management: clinically adequate Postoperative Hydration: acceptable. Intraoperative Events: no significant anesthesia events Post Operative Nausea/Vomiting Status: no significant post operative nausea or vomiting Recommendation: further care per PACU/ICU/floor team. 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 [place] History of cardiovascular stress test normal Bug bites scratched open mosquito bites Contact lens/glasses fitting right eye contact for reading Pertinent Negatives Comments No pertinent negative medical history recorded Surgical History Current as of 02/14/23 1206 History Comments COLONOSCOPY SCREENING within the last 18 years per patient REMOVAL GALLBLADDER ANKLE SURGERY HX x3 COLONOSCOPY SCREENING Lymphocytic colitis Anesthesia Family History Current as of 02/14/23 1206 Colon Cancer No Family History Substance History Current as of 02/14/23 1206 Smoking Status: Never Passive Exposure: Never Smokeless Tobacco Status: Never Alcohol use: No Drug use: Never lens maker Status? LMP: Unknown lens maker Status: Postmenopausal Other Labs? ?(Last 90 days) ALT AST 20 01/20/23 1213 25 01/20/23 1213 All Postprocedure Notes No postoperative notes have been written. Procedure Information Date/Time: 02/14/23 1035 Procedures: ARTHRODESIS MIDTARSAL MULTIPLE/TRANSVERSE (Right: Foot) GRAFT BONE EXTREMITY LOWER (Right: Foot) INTERNAL FIXATION TARSAL DISLOCATION OPEN (Right: Foot) Location: MR OR 10 / MR OR Surgeons: Franko Mauro DPM Estimated body mass index is 31.2 kg/m? as calculated from the following: Height as of this encounter: 157.5 cm (5' 2). Weight as of this encounter: 77.4 kg (170 lb 9.6 oz). Most recent hematocrit and potassium results: Hematocrit 43.1 08/28/2022 Potassium 4.0 08/28/2022 Relevant Problems CARDIO (+) VELÁZQUEZ (dyspnea on exertion) (+) PVC (premature ventricular contraction) PULMONARY (+) VELÁZQUEZ (dyspnea on exertion) I - PHYSICAL EVALUATION AIRWAY Patient intubated: No. Tracheostomy tube not present Mallampati: II. TM distance: >3 FB. Neck ROM: full ROM without neurological symptoms. Mouth opening: adequate. Short neck: no. Thick neck: no Montano present: no Additional exam findings: yes. CARDIOVASCULAR Rhythm: regular Rate: normal Murmur not present. PULMONARY Breath sounds clear to auscultation. Rhonchi not present. ABDOMINAL Abdomen: soft. Bowel sounds: normal. II - ANESTHESIA PLAN ASA Score: 2 Anesthetic Plan: general and regional Airway type: LMA The patient is not a current smoker. NPO Status: adequate Anesthetic plan additional comments: Right adductor canal nerve block and right popliteal nerve block, for postop pain per surgeon request. . Beta Alfonzo Administration of chronic beta alfonzo medication not planned. Monitoring Plan Monitoring plan: standard ASA. Post Procedure Analgesic Plan Postoperative analgesic plan: parenteral or oral opioids, multimodal analgesia and peripheral nerve block. Informed Consent Anesthetic risks, benefits, alternatives, personnel and consent discussed: yes. Patient / Responsible Republican agrees to proceed: yes Patient / Surrogate agrees to blood products: blood products not planned DNR status not reviewed with patient and/or family prior to surgery. Significant changes in the patient condition since the History and Physical, not otherwise documented in primary service progress note: no. Potential Anesthesia issues that may suggest increased risk of complications or contraindication to planned procedure: none. Discussed the possibility of lip / dental damage: yes Vitals Value Taken Time BP 124/60 02/14/23 1200 Pulse 87 02/14/23 1204 Resp 14 02/14/23 1150 Temp 36.7 ?C (98.1 ?F) 02/14/23 0822 SpO2 89 % 02/14/23 1204 Vitals shown include unvalidated device data. Facility-Administered Medications as of 02/14/2023 Medication Dose Route Frequency - ceFAZolin iv piggyback 2 g in D5W (iso-osmotic) 100 mL (ANCEF) 2 g INTRAVENOUS ONCE - [COMPLETED] lidocaine (PF) 10 mg/mL (1 %) 1-2 mg injection (XYLOCAINE) 0.1-0.2 mL INTRADERMAL PRN - lactated ringers iv infusion 75 mL/hr INTRAVENOUS CONTINUOUS - [COMPLETED] midazolam (PF) 2 mg injection (VERSED) 2 mg INTRAVENOUS ONCE - lidocaine (PF) 10 mg/mL (1 %) 1-2 mg injection (XYLOCAINE) 0.1-0.2 mL INTRADERMAL PRN - lactated ringers iv infusion 30 mL/hr INTRAVENOUS CONTINUOUS Outpatient Medications as of 02/14/2023 Medication Sig - DULoxetine (CYMBALTA) 60 mg capsule Take 1 capsule by mouth once daily. (Patient taking differently: Take 60 mg by mouth every morning.) - [] budesonide, enteric coated (ENTOCORT EC) 3 mg 24 hr capsule Take 3 capsules by mouth once daily for 56 days, THEN 2 capsules once daily for 14 days, THEN 1 capsule once daily for 14 days. I have interviewed and examined the patient. I have reviewed the medical record and (more content not included)... [facility] HISTORY PHYSICALon 3 HISTORY PHYSICAL HNO ID: [id number] Author: aMrcia Cifuentes DPM Service: Podiatry Author Type: Resident Type: HANDP Filed: 02/14/2023 9:01 AM Note Text: Attestation signed by Franko Mauro DPM at 02/14/2023 12:06 PM Patient was seen and evaluated and they understand all risks and complications at hand. HISTORY AND PHYSICAL EXAMINATION SERVICE DATE: 02/14/2023 SERVICE TIME: 9:00 AM PRIMARY CARE PHYSICIAN: Estefany Preciado MD Brent Jasso is a 72yo female who presents to [facility] for outpatient surgical intervention today. Denies any discomfort or pain other than the right foot. Denies N/V/D/C/F/SoB/Abdominal or chest pain today. 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 [place] PAST SURGICAL HISTORY Procedure Laterality Date ANKLE SURGERY HX Left x3 COLONOSCOPY SCREENING within the last 18 years per patient COLONOSCOPY SCREENING 11/12/2022 Lymphocytic colitis REMOVAL GALLBLADDER FAMILY HISTORY Problem Relation Age of Onset Colon Cancer No Family History Social History Tobacco Use Smoking status: Never Passive exposure: Never Smokeless tobacco: Never Vaping Use Vaping Use: Never used Substance Use Topics Alcohol use: No Drug use: Never perflutren lipid microspheres 1.3 mL in NaCl (PF) 0.9% 10 mL injection (DEFINITY), , INTRAVENOUS, DIRECTED PRNOzzy Peter T, MD sodium chloride 0.9 % (flush) 10 mL (BD POSIFLUSH), 10 mL, INTRAVENOUS, DIRECTED PRNOzzy Peter T, MD vit C/E/Zn/coppr/lutein/ada jennifer (PRESERVISION AREDS-2 ORAL), Take 1 tablet by mouth twice daily., Disp: , Rfl: metoprolol succinate ER (TOPROL XL) 25 mg 24 hr tablet, Take 1 tablet by mouth once daily. (Patient taking differently: Take 25 mg by mouth every morning.), Disp: 30 tablet, Rfl: 2, 02/14/2023 DULoxetine (CYMBALTA) 60 mg capsule, Take 1 capsule by mouth once daily. (Patient taking differently: Take 60 mg by mouth every morning.), Disp: 90 capsule, Rfl: 3 Bifidobacterium Infantis (ALIGN) 4 mg cap, Take 1 capsule by mouth once daily., Disp: 42 capsule, Rfl: 1 ALLERGIES No Known Allergies COMPLETE REVIEW OF SYSTEMS: Review of Systems All other systems reviewed and are negative. Objective PHYSICAL EXAM: Physical Exam Vitals reviewed. HENT: Head: Atraumatic. Eyes: Pupils: Pupils are equal, round, and reactive to light. Neurological: Mental Status: She is alert and oriented to person, place, and time. Psychiatric: Behavior: Behavior normal. BP 153/74 Temp 36.7 ?C (98.1 ?F) (Temporal) Resp 17 Ht 157.5 cm (5' 2) Wt 77.4 kg (170 lb 9.6 oz) SpO2 96% BMI 31.20 kg/m? Body mass index is 31.2 kg/m?. DATA: Diagnostic tests reviewed for today's visit: Most recent labs and imaging results. Assessment/Plan Surgical intervention planned for today: Right - ARTHRODESIS MIDTARSAL MULTIPLE/TRANSVERSE Right - GRAFT BONE EXTREMITY LOWER Right - INTERNAL FIXATION TARSAL DISLOCATION OPEN SIGNATURE: Marcia Cifuentes DPM PATIENT NAME: Brent Mosqueda DATE: February 14, 2023 TIME: 9:00 AM [facility] NURSING PROGon 02-14-2023 NURSING PROG HNO ID: [id number] Author: Francy Mahan RN Service: Nursing Author Type: Registered Nurse Type: Nursing Progress Note Filed: 02/14/2023 11:50 AM Note Text: Summary: Blocks Right Popliteal and Adductor Canal Block with ultrasound per Dr. Morin. Tolerated well. [facility] XR FLUOROSCOPYon 02-14-2023 XR FLUOROSCOPY * * *Final Report* * * DATE OF EXAM: Feb 14 2023 1:37PM RHX [id number] - XR FLUOROSCOPY / PROCEDURE REASON: dislocation of transmetatarsal joint of right foot * * * * Physician Interpretation * * * * XR FLUOROSCOPY Ordering Physician: FRANKO MAURO FLUOROSCOPY AND RADIOGRAPHIC UTILIZED IN THE OR Clinical Statement: Dislocation of transmetatarsal joint right foot FINDINGS: 79.1 second fluoroscopy time utilized. A total of 6 5 images were obtained during arthrodesis at the first tarsometatarsal joint with cannulated screw placement extending into the intermediate cuneiform IMPRESSION: Documentation of fluoroscopy and radiographs utilized in the OR. Please see operative report for complete details Fiberglass Model Maker: PSCB Transcribe Date/Time: Feb 14 2023 2:58P Dictated by : EMILY DIAZ MD This examination was interpreted and the report reviewed and electronically signed by: EMILY DIAZ MD on Feb 14 2023 2:59PM EST [id number] [facility] NURSING PROGon 02-13-2023 NURSING PROG HNO ID: [id number] Author: Jose Jimenez RN Service: Nursing Author Type: Registered Nurse Type: Nursing Progress Note Filed: 02/13/2023 5:48 PM Note Text: PRE-PROCEDURE INSTRUCTIONS TO PREPARE FOR YOUR PROCEDURE: Your arrival time for your procedure is 0800. Do NOT eat any solid foods after MIDNIGHT the night prior to your procedure - this includes gum or mints. You can drink clear liquids* up until 0600, which is 2 hours before your arrival time. *Clear liquids = water, carbohydrate drink (sports drink that is clear or yellow in color), Ensure Pre-Surgery (given by AIME or your ), fruit juice without pulp (apple/cranberry), clear tea, black coffee (no cream). NO CARBONATED BEVERAGES AND NO ALCOHOL. Shower the morning of the procedure, put on clean clothes, and have clean sheets for your bed to help prevent infection after your procedure. Leave all valuables such as jewelry including rings, piercings, wallets, and purses at home. Wear comfortable, loose-fitting clothing. If you wear glasses or contacts, please bring a case. SPECIAL INSTRUCTIONS: If instructed, bring your first voided urine specimen with you. If you were provided skin preparation to use prior to your procedure, complete this as directed. If you were provided Ensure Pre-Surgery drink, you need to drink this at NA. This should be consumed quickly (in less than 5 minutes, rather than sipped over time) If you use crutches or a walker, bring them with you. If you have a home CPAP/BIPAP machine, bring it with you. If you were instructed to complete a fleets enema or bowel prep, complete as directed. Bring copy of Living Will/Power of [employer] Technician. Do not smoke or chew. If you use tobacco, quit or at least cut down before surgery. Do not smoke or chew after midnight the day before your surgery. This effects bleeding, infection, healing, and so much more. Do not take any Diet or Herbal Supplements 2 weeks prior to your surgery date. Please notify your physician if there is any change in your physical condition such as a cold, cough, fever, sore throat, or skin irritation near the surgical site. Visitors under the age of 14 are restricted in the Surgery Center. UPON ARRIVAL: Access to [facility] ([facility]) is located on [address] [employer] parking is available for your convenience from 5am-5pm- there is a $5.00 charge for this service. Take the elevators directly inside the entrance to the 1st Floor Surgery Lobby. Sign in at the podium located to the left when you get off the elevators. A payment may be expected at the time of service. One visitor may come back to the preoperative area with you. The preoperative staff will be reviewing your medical history, please let them know if you prefer not to have a visitor with you during this time. Once you are ready for surgery, two visitors at a time are permitted in your preoperative room. [facility] NM CARDIAC PERF STRESS/EXERC ISEon 01-17-2023 [facility] SURGICAL PATHOLOGYOrdered By : Noel Paniagua on 11-13-2022 Case Report Surgical Pathology Report Case: [id number] Authorizing Provider: Shy Barrios MD Collected: 11/12/2022 01:41 PM Ordering Location: Ambulatory Surgery Received: 11/12/2022 09:15 PM Pathologist: Noel Paniagua MD Specimen: COLON BIOPSY, random [facility] Work Phone: FINAL DIAGNOSIS a1yktHPvAIFemJViBQFc NVx kxaDqTAIfvBTfJ2QrjbddIA lrLH6iGF0bxYzbwUCtwFTfD AHoRtLzf0ykg351cJUik1bc ZJWYotoiiCr7qAclW54db9Y 5IxhvX09qpEFfGDV4LRIcRC JlhIMaVOAxJOZ4STUdiCJtM 2xnCJYxNH6oubjmNJnzAVwz PYCrqNV8UNOifDZuR6BeTHY qJUiuCDUsccc0MnQqSb1lyU VyeTcyMFxwYXJkXHBsYWluX NTcFgOiSB6tM89pw92gQLPo edAtbTrkWqvrlXJ3CuvaFYZ oDRb9eDFbm0D9lTjfXSPxcL a6xLJlJOLcam6= [facility] Work Phone: Gross Description n1amtWZcMJEtoRLmDCJs NVx ugmGuYNZwyHLlR5FbqvwrBD afSN2oPH6fbZerwICzzALqN VKiAqFca4tvp057fRLtv7px GZMBmbpctQe6jLanU43jh7A 4ZhsnH84wfWUpHVD4KQDdQU QvtCOfPFHtZUO8KGSosDPmY 2ztXBWuQS7toamyNFimWBxn WRQnyUN4GXHcrXVpF8TwNIT hQDzhMAGytml2DeTcUl7pqQ XgbHbhOTwuQxtuvAqzu2Iut CBcXGlkIDUxMDAwIFxcbmgg FFz5WUWfJSrcsCStJR8rsSz cQzvqrZvrc8QzyXYkGHxqVB HiEPHlILftPGOsX7HVJOEeQ wG1Nek5KjIeRZc1OSn4BH2I XdTbTWPfSxV7Wqx6HrCbIIh 3TNlsHR1UMWGnKVi1YvH2BR I0ZCE6DSg2HPspzOJlAUblF mwgXFxmIEFyaWFsIFxcbmN9 QGWnehXztJpwfV9dJiVyFSU FXdSTN4xCLmTYUG6WC9siwW UaLPCdClUiJnXsGCr1WZJlf X4iHv2daAKrrM6fXCKxRO23 bHRpcGxlIHBpZWNlcyBvZiB 1WC6yLIMyUuTleSpvv6HlJE IkP0UuK7L3lY0nHIYcMEDeV OD2WZYnAUI7PLIpRwOowI9w TN65JKgjsUGenMJalAP7RVH xuJ4wzEyeBCAxe2JalXMmfz 6eTKNcnpiyQFDbT1Dzb7CoG QykaPuuXWCsn37loNDoHh4w yJToCRU0MOMvFHTptNIfRTA DgBidiBGpMNt7ZIVmWWVvtR rbJIS9DE6cXKGnUFOpzNMcD KtrJ0quGFOrIVLyuMMbXQJx peTJZBLjFw6cNJ6xARImEOT 3EcGfIF5bjSDyy9afvDuup6 OzcMWgBM41GLKuhVXnFJC7Z H0ogAdoDAP8 [facility] Work Phone: Performing Lab l0zjpFQrBCJszRGiDoXf MDA aTPTup1vuOXJbqJDtZqIoDr NcZnRuYmpcdWMxXGRlZmYwe 2xfo773fAHdv3jeDXKiEtD9 gZKcXGYzeMKjD325TBOkGTv iq8flw2DnIYIicXVxk0S8UZ ADdcookQr6mPbhN13bi3T4V wdmP9gjIPEtAOCkS4NiTT9s WERjBjt3ILW1FKH2ARXhLVD sA7UtHI3iZUVhdXZbXVp4j3 meyPimYSFzVYB1l2jhYOsip pMmGQ6egi0dtQn9h7iuqnUt GRFfOTAyiJWPBUNiT7TlkLg lHr5jdUg7xHffCugaCUP3As r5XV0exu33pci5wPanGARqm vfjGvZ9CTzzSOMbzywsHCr5 AWthKGCubKQ1QTUyiZGmF4V dVBzwHK0ukia2PWX7OFzuPN HwEbL7ZCOltJXqVHAfkTzsZ Eefl705ZSX1MwEpNF1xR4Ep x5H7eN5ruOOmJNLcmHGmYcV rPSIjhh9ghPVrYKcbu6JfWH N8piD3qOQmuXSjSLHzXH06L dncr9CcKvvjm1LfB16lmTK9 TFkuu8liLP1bYgA3myRmHZn ce3qacE5jAxP0EGgdVP7zLP 7wTSUrjJ4idhktHNGoUmJho mitSCEvhRudccIsLl6gbZhy XZR6WUfiC0fabK4oVrU2PUb mV4bcuT9jOOc6YKxzhOI6JN RvpS5aHG2eivutg9lxPGntF BdfCFJafvO8ghGtBSIieGWd F0IhiR1lMLJrRZ5fgvhyz3u zRYJ6RTowZAAkDIK8AjKjTO Xgl5Psesy1PuYfq5SbkKUmW IwtF80qp162OXPpygMoG3sv bGFpblxwbGFpblxmMFxmczI 0XHFsXHBsYWluXGYxXGZzMj JcbGFuZzEwMzNcaGljaFxmM HnjFgHiBQWxSWrkT5onGqXr LeXnAnVKwIRatk0vdVorQUw lvIJhxNLnqKZ2pO5tGZPcin Rrpf1dLONyhSYMqDJ0FKfjo pUbI3bsxewdZSN1CYJvIWW4 U6hvMWPNyoMkRFTvBAScpIZ qIWEPYBY0TGD2BILuSCQOXW GjCZE6BWK9DBDkWEWxnTBlA HBhclxwYXJkXHBsYWluXGYw OGLkAdYsgKaumI1aYtUoVyY xAkvgNW8yRILzR1hduKZhXF PrIKZcD1yuVpJajZ6czNeeM VxjZjJcZnMyMlxsdHJjaCBM HLXmdmB2l3O1RBvivOUtses mMVxmczIyXGxhbmcxMDMzXG ppA1ikMkDgTYTraEtcDPwzg 2ReQWXkMYAeGmToNSwkNJX0 r4S8VQfghSNddgDLPuFKEQ9 vdBTuuttwRZ6SQmxkLYM5 [facility] Work Phone: [facility] Work Phone: Flexible sigmoidoscopy study on 11-12-2022 [facility] Gastrointestinal Endoscopy Patient Name: Brent Mosqueda Procedure Date: 11/12/2022 1:27 PM Date of : 1950 Admit Type: Outpatient Age: 72 Room: [place] [address] Gender: Female Note Status: Finalized Attending MD: Shy Barrios MD Procedure: Colonoscopy Indications: Chronic diarrhea Providers: Shy Barrios MD Patient Profile: Last Colonoscopy: more than 10 years ago. Referring Physician: Devorah Salazar (pa) (Referring MD) Medicines: Propofol per Anesthesia Complications: No immediate complications. Requesting Provider: Procedure: Pre-Anesthesia Assessment: - Prior to the procedure, a History and Physical was performed, and patient medications and allergies were reviewed. The patient's tolerance of previous anesthesia was also reviewed. The risks and benefits of the procedure and the sedation options and risks were discussed with the patient. All questions were answered, and informed consent was obtained. Prior Anticoagulants: The patient has taken no anticoagulant or antiplatelet agents. ASA Grade Assessment: II - A patient with mild systemic disease. After reviewing the risks and benefits, the patient was deemed in satisfactory condition to undergo the procedure. After I obtained informed consent, the scope was passed under direct vision. Throughout the procedure, the patient's blood pressure, pulse, and oxygen saturations were monitored continuously. The Colonoscope was introduced through the anus and advanced to the cecum, identified by appendiceal orifice and ileocecal valve. I was present and participated during the entire procedure, including non-germain portions, and during the administration and monitoring of Moderate Sedation. The colonoscopy was performed without difficulty. The patient tolerated the procedure well. The quality of the bowel preparation was good. The ileocecal valve, appendiceal orifice, and rectum were photographed. Moderate Sedation: MAC anesthesia was administered by the anesthesia team. Findings: The terminal ileum appeared normal. The colon (entire examined portion) appeared normal. Biopsies for histology were taken with a cold forceps from the random colon biopsies for evaluation of microscopic colitis. Impression: - The examined portion of the ileum was normal. - The entire examined colon is normal. Biopsied. Recommendation: - Resume previous diet. - Continue present medications. - Await pathology results. - Repeat colonoscopy in 10 years for screening purposes. - The patient is not currently taking anticoagulant or antiplatelet agents. - Return to GI office at appointment to be scheduled. - Patient has a contact number available for emergencies. The signs and symptoms of potential delayed complications were discussed with the patient. Return to normal activities tomorrow. Written discharge instructions were provided to the patient. Procedure Code(s): --- Professional --- 53393, Colonoscopy, flexible; with biopsy, single or multiple CPT copyright 2020 [employer] [place] [employer]. All rights reserved. The codes documented in this report are preliminary and upon gun synchronizer review may be revised to meet current compliance requirements. Attending Participation: I personally performed the entire procedure. Scope In: 1:30:17 PM Scope Out: 1:46:38 PM MD Shy Villalta MD 11/12/2022 1:57:57 PM This report has been signed electronically by Shy Barrios MD Number of Addenda: 0 Note Initiated On: 11/12/2022 1:27 PM Estimated Blood Loss: Estimated blood loss: none. PROVATION [facility] Radiology Study observation (narrative) [facility] US ABD RIGHT UPPER QUADRANTo n 09-06-2022 [facility] C-REACTIVE PROTEIN (CRP)on 0 08-28-2022 CRP [Mass/Vol] 0.9 mg/dL High <0.9 mg/dL [facility] CBC W Auto Differential pane l (Bld)on 08-28-2022 Basophils (Bld) [#/Vol] 0.05 10*3/uL <0.11 k/uL [facility] Basophils/100 WBC (Bld) 0.6 % [facility] Differential cell count method Nom (Bld) Auto [facility] Eosinophils (Bld) [#/Vol] 0.25 10*3/uL <0.46 k/uL [facility] Eosinophils/100 WBC (Bld) 3.2 % [facility] Erythrocyte distribution width (RBC) [Ratio] 13.2 % 11.5 - 15.0 % [facility] Hematocrit (Bld) [Volume fraction] 43.1 % 36.0 - 46.0 % [facility] Hemoglobin (Bld) [Mass/Vol] 14.2 g/dL 11.5 - 15.5 g/dL [facility] Immature granulocytes (Bld) [#/Vol] <0.10 k/uL [facility] Immature granulocytes/100 WBC (Bld) 0.3 % [facility] Lymphocytes (Bld) [#/Vol] 2.11 10*3/uL 1.00 - 4.00 k/uL [facility] Lymphocytes/100 WBC (Bld) 26.9 % [facility] MCH (RBC) [Entitic mass] 30.3 pg 26.0 - 34.0 pg [facility] MCHC (RBC) [Mass/Vol] 32.9 g/dL 30.5 - 36.0 g/dL [facility] MCV (RBC) [Entitic vol] 92.1 fL 80.0 - 100.0 fL [facility] Monocytes (Bld) [#/Vol] 1.11 10*3/uL High <0.87 k/uL [facility] Monocytes/100 WBC (Bld) 14.2 % [facility] Neutrophils (Bld) [#/Vol] 4.30 10*3/uL 1.45 - 7.50 k/uL [facility] Neutrophils/100 WBC (Bld) 54.8 % [facility] Nucleated RBC (Bld) [#/Vol] <0.01 k/uL [facility] Nucleated RBC/100 WBC (Bld) [Ratio] 0.0 /100 WBC [facility] Platelet mean volume (Bld) [Entitic vol] 10.5 fL 9.0 - 12.7 fL [facility] Platelets (Bld) [#/Vol] 309 10*3/uL 150 - 400 k/uL [facility] RBC (Bld) [#/Vol] 4.68 10*6/uL 3.90 - 5.2 0 m/uL [facility] WBC (Bld) [#/Vol] 7.84 10*3/uL 3.70 - 11. 00 k/uL [facility] TSH BLDon 08-28-2022 TSH Qn 1.350 m[IU]/L 0.270 - 4.200 mIU/L [facility] VITAMIN B12 BLOODon 08-29-19 Cobalamin (Vitamin B12) [Mass/Vol] 973 pg/mL 232 - 1,245 pg/mL [facility] XR Ankle right 3 viewson XR Ankle right 3 views Right ankle three views HISTORY: Injury, pain No fracture or dislocation. Right foot three views No fracture or dislocation. IMPRESSION: Normal examinations. Report Dictated on Authenticated by: Karel Zaldivar On: 07/16/2021 17:23 Read by: KAREL ZALDIVAR MD, MD Date: 07/16/2021 17:23 [facility] XR Foot Right complete 3 plu s viewson 07-16-2021 XR Foot Right complete 3 plus views Right ankle three views HISTORY: Injury, pain No fracture or dislocation. Right foot three views No fracture or dislocation. IMPRESSION: Normal examinations. Report Dictated on Authenticated by: Karel Zaldivar On: 07/16/2021 17:23 Read by: KAREL ZALDIVAR MD, MD Date: 07/16/2021 17:23 [facility] CHEST 2 VIEWSon 04-22-2017 CHEST 2 VIEWS Performed at [facility] APPROVED BY: NIKOLE ENGEL MD EXAMINATION: CHEST RADIOGRAPH (2 VIEW FRONTAL & LATERAL) Clinical History: Abnormal EKG. Left-sided chest heaviness.M: XC2_3Comparison: None. RESULT: There is hyperinflation of the lungs. The heart is normal in size. There is no pat pulmonary consolidation, pleural effusion, pneumothorax, or pulmonary vascular redistribution. Mild pleural thickening is seen within the costophrenic angles, bilaterally. There is mild scoliosis, osteopenia, and mild multilevel degenerative change seen within the thoracic spine. Surgical clips are incidentally seen within the right upper quadrant. IMPRESSION: No acute pulmonary process is identified. Normal [facility] Comprehensive Panelon 2016 Alanine aminotransferase (ALT) 67 U/L Normal 12-78 [facility] Comment on above: Performed By: #### P 14 ####[facility] [place], [place] [address] Alkaline phosphatase (ALP) 147 U/L High 46-116 [facility] Comment on above: Performed By: #### P 14 ####[facility] [place], [place] [address] Protein 7.1 g/dL Normal 6.4-8.2 [facility] Comment on above: Performed By: #### P 14 ####[facility] [place], [place] [address] Bilirubin Ql (U) 0.5 mg/dL Normal 0.2-1.0 [facility] [place] [facility] Comment on above: Performed By: #### P 14 ####[facility] [place], [place] [address] Aspartate aminotransferase (AST) 40 U/L High 9-37 [facility] Comment on above: Performed By: #### P 14 ####[address] [address] Creatinine 0.73 mg/dL Normal 0.51-0.95 [facility] Comment on above: Performed By: #### P 14 ####[facility] [place], [place] [address] Glucose mass conc 84 mg/dL Normal 70-99 [facility] Comment on above: Performed By: #### P 14 ####[facility] [place], [place] [address] Albumin 3.9 g/dL Normal 3.4-5.0 [facility] Comment on above: Performed By: #### P 14 ####[facility] [place] [address] Anion gap 10 mmol/L Normal 8-16 [facility] Comment on above: Performed By: #### P 14 ####[place] [address] CO2 27 mmol/L Normal 21-32 [facility] Comment on above: Performed By: #### P 14 ####[address] [address] Calcium 8.8 mg/dL Normal 8.5-10.1 [facility] Comment on above: Performed By: #### P 14 ####[place] [address] Urea nitrogen 17 mg/dL Normal 7-18 [facility] Comment on above: Performed By: #### P 14 ####[address] [address] Chloride 106 mmol/L Normal 98-107 [facility] Comment on above: Performed By: #### P 14 ####[address] [address] Potassium molar conc 3.8 mmol/L Normal 3.5-5.1 [facility] Comment on above: Performed By: #### P 14 ####[place] [address] Sodium 139 mmol/L Normal 136-145 [facility] Comment on above: Performed By: #### P 14 ####[place] [address] D-Dimer Quantitativeon 04-22 D-Dimer Quantitative 362 ng/mL(FEU) Normal <450 [facility] Comment on above: Result Comment: The cutoff level recommended for the exclusion of deep veinthrombosis (DVT) or pulmonary embolism (PE) is 450 ng/mL(FEU).It is recommended that DVT or PE exclusion be restricted tosuspected outpatients with a low to moderate pretest probabilitymodel. Performed By: #### S DDM ####[place] [address] Direct Bilirubinon 7 Bilirubin (total) 0.13 mg/dL Normal 0.00-0.20 [facility] Comment on above: Performed By: #### D RACHEL ####[place] [address] Folateon 04-22-2017 Folate 19.10 ng/mL High 3.10-17.50 [facility] Comment on above: Performed By: #### F OL ####[place] [address] Hemogram/Diffon 04-22-2017 Abs Immature Grans 0.01 thou/cmm Normal 0.00-0.05 [facility] Comment on above: Performed By: #### C BCD1 ####[place] [address] Abs. Baso 0.06 thou/cmm Normal 0.01-0.08 [facility] Comment on above: Performed By: #### C BCD1 ####[place] [address] Abs. [place] 0.48 thou/cmm Normal 0.27-0.70 [facility] Comment on above: Performed By: #### C BCD1 ####[place] [address] Abs. Neut 4.35 thou/cmm Normal 1.56-6.13 [facility] Comment on above: Performed By: #### C BCD1 ####[place] [address] Basophils/100 WBC Auto (Bld) 0.9 % Normal [facility] Comment on above: Performed By: #### C BCD1 ####[facility] [place], [place] [address] Eosinophils 0.10 thou/cmm Normal 0.00-0.31 [facility] Comment on above: Performed By: #### C BCD1 ####[address] [address] Eosinophils/100 leukocytes 1.5 % Normal [facility] Comment on above: Performed By: #### C BCD1 ####[address] [address] Erythrocyte distribution width Auto Ratio (RBC) 13.0 % Normal 11.7-14.4 [facility] Comment on above: Performed By: #### C BCD1 ####[address] [address] Erythrocytes (RBC) 4.27 mil/cmm Normal 3.93-5.22 [facility] Comment on above: Performed By: #### C BCD1 ####[address] [address] Hematocrit (HCT) 39.7 % Normal 34.1-44.9 [facility] [place] [facility] Comment on above: Performed By: #### C BCD1 ####[address] [address] Hemoglobin mass conc (Bld) 13.3 g/dL Normal 11.2-15.7 [facility] Comment on above: Performed By: #### C BCD1 ####[address] [address] Immature Grans 0.10 % Normal [facility] Comment on above: Performed By: #### C BCD1 ####[address] [address] Lymphocytes 1.86 thou/cmm Normal 1.18-3.74 [facility] Comment on above: Performed By: #### C BCD1 ####[address] [address] Lymphocytes/100 leukocytes 27.1 % Normal [facility] Comment on above: Performed By: #### C BCD1 ####[facility] [place], [place] [address] MCH 31.1 pg Normal 25.6-32.2 [facility] Comment on above: Performed By: #### C BCD1 ####[facility] [place], [place] [address] MCHC mass conc (RBC) 33.5 % Normal 31.6-34.8 [facility] Comment on above: Performed By: #### C BCD1 ####[address] [address] MCV 93.0 fL Normal 79.4-94.8 [facility] Comment on above: Performed By: #### C BCD1 ####[address] [address] Monocytes/100 leukocytes 7.0 % Normal [facility] Comment on above: Performed By: #### C BCD1 ####[address] [address] Platelet mean volume (PMV) 10.4 fL Normal 9.4-12.3 [facility] Comment on above: Performed By: #### C BCD1 ####[address] [address] Platelets 263 thou/cmm Normal 182-369 [facility] Comment on above: Performed By: #### C BCD1 ####[address] [address] RDW SD 44.2 fl Normal 36.4-46.3 [facility] Comment on above: Performed By: #### C BCD1 ####[address] [address] Seg Neutrophil 63.4 % Normal [facility] Comment on above: Performed By: #### C BCD1 ####[address] [address] WBC (Leukocytes) 6.86 thou/cmm Normal 3.98-10.04 [facility] Comment on above: Performed By: #### C BCD1 ####[facility] [place], [place] [address] Lipid Profileon 04-22-2017 Cholesterol to HDL Ratio 3.1 {ratio} Normal 1.8-5.3 [facility] Comment on above: Performed By: #### L IPD2 ####[facility] [place], [place] [address] HDL Cholesterol 62 mg/dL Normal >40 [facility] Comment on above: Performed By: #### L IPD2 ####[address] [address] LDL Cholesterol 103 mg/dL Normal [facility] Comment on above: Result Comment: No C AD and with fewer than 2 CAD risk factors <160 mg/dlNo CAD but with 2 or more CAD risk factors <130 mg/dlDefinite CAD or other atherosclerotic disease <100 mg/dl Performed By: #### L IPD2 ####[address] [address] LDL to HDL Ratio 1.7 Normal 0.6-3.6 [facility] [place] [facility] Comment on above: Result Comment: LDL, VLDL,LDL/HDL, Invalid if Triglyceride >400 Performed By: #### L IPD2 ####[address] [address] Cholesterol 191 mg/dL Normal 0-199 [facility] Comment on above: Result Comment: <200 [id number] Borderline>240 High Performed By: #### L IPD2 ####[address] [address] Cholesterol in VLDL mass conc 26 mg/dL Normal <50 Desired [facility] Comment on above: Performed By: #### L IPD2 ####[address] [address] Triglyceride 130 mg/dL Normal 0-149 [facility] Comment on above: Result Comment: < 20 0 DesirableResult invalid if not a fasting specimen. Performed By: #### L IPD2 ####[address] [address] MDRD GFRon 04-22-2017 eGFR (non-black) mL/min/{1.73_m2} Normal >60mL/m in/1.7 3m2 [facility] Comment on above: Result Comment: If t he patient is , multiply the result by 1.210. Performed By: #### G FR ####[address] [address] TSH, 3rd generationon 2016 TSH, 3rd generation 1.960 uIU/mL Normal 0.358-3.740 [facility] Comment on above: Performed By: #### T SH3 ####[address] [address] Troponin Ion 04-22-2017 Troponin I.cardiac mass conc ng/mL Normal 0.015-0.045 [facility] Comment on above: Performed By: #### T ROP ####[address] [address] Vitamin B12on 04-22-2017 Cobalamins (Vitamin B12) 369 pg/mL Normal 193-986 [facility] Comment on above: Performed By: #### B 12 ####[address] [address] ECG B/O W INTERP (MED OFFICE ) [facility] Vital Signs Date Time Vital Sign Value Performing Clinician Lynn squires 01-28-2025 12:45-0400 Body mass index (BMI) [Ratio] 25.52 kg/m2 [employer] DO Work Phone: [facility] 01-28-2025 12:45-0400 Body weight 63.3 kg [employer] DO Work Phone: [facility] 01-28-2025 12:45-0400 Diastolic blood pressure 74 mm[Hg] [employer] Phoenix DO Work Phone: [facility] 01-28-2025 12:45-0400 Heart rate 64 /min Stephen Phoenix DO Work Phone: [facility] 01-28-2025 12:45-0400 Respiratory rate 16 /min [employer] DO Work Phone: [facility] 01-28-2025 12:45-0400 SaO2% (BldA) [Mass fraction] 98 % Stephen Phoenix DO Work Phone: [facility] 01-28-2025 12:45-0400 Systolic blood pressure 112 mm[Hg] Stephen Phoenix DO Work Phone: [facility] 01-25-2025 14:10-0400 Body height 157.5 cm Portia Ny DO Work Phone: [facility] 01-25-2025 14:10-0400 Body mass index (BMI) [Ratio] 25.97 kg/m2 [place] Ny DO Work Phone: [facility] 01-25-2025 14:10-0400 Body temperature 98.6 [degF] [place] Ny DO Work Phone: [facility] 01-25-2025 14:10-0400 Body weight 64.41 kg [place] Ny DO Work Phone: [facility] 01-25-2025 14:10-0400 Diastolic blood pressure 58 mm[Hg] [place] Ny DO Work Phone: [facility] 01-25-2025 14:10-0400 Heart rate 72 /min Portia Ny DO Work Phone: [facility] 01-25-2025 14:10-0400 SaO2% (BldA) [Mass fraction] 97 % [place] Ny DO Work Phone: [facility] 01-25-2025 14:10-0400 Systolic blood pressure 102 mm[Hg] [place] Ny DO Work Phone: [facility] 01-06-2025 08:18-0400 Diastolic blood pressure 75 mm[Hg] Zi Tineoskrystyna DO Work Phone: [facility] 01-06-2025 08:18-0400 Heart rate 65 /min Zi Stanton DO Work Phone: [facility] 01-06-2025 08:18-0400 Respiratory rate 16 /min Zi Tineosner DO Work Phone: [facility] 01-06-2025 08:18-0400 SaO2% (BldA) [Mass fraction] 96 % Zi Tineosner DO Work Phone: [facility] 01-06-2025 08:18-0400 Systolic blood pressure 129 mm[Hg] Zi Tineosner DO Work Phone: [facility] 12-03-2024 09:03-0400 Heart rate 68 /min Zi Tineosner DO Work Phone: [facility] 12-03-2024 09:03-0400 Respiratory rate 17 /min Zi Tineosner DO Work Phone: [facility] 12-03-2024 09:03-0400 SaO2% (BldA) [Mass fraction] 99 % Zi Tineosner DO Work Phone: [facility] 10-08-2024 11:34-0400 Body mass index (BMI) [Ratio] 30.16 kg/m2 Stephen Phoenix DO Work Phone: [facility] 10-08-2024 11:34-0400 Body weight 74.8 kg Stephen Phoenix DO Work Phone: [facility] 10-08-2024 11:34-0400 Diastolic blood pressure 63 mm[Hg] Stephen Phoenix DO Work Phone: [facility] 10-08-2024 11:34-0400 Heart rate 80 /min Stephen Phoenix DO Work Phone: [facility] 10-08-2024 11:34-0400 Respiratory rate 16 /min Stephen Phoenix DO Work Phone: [facility] 10-08-2024 11:34-0400 SaO2% (BldA) [Mass fraction] 95 % Stephen Phoenix DO Work Phone: [facility] 10-08-2024 11:34-0400 Systolic blood pressure 95 mm[Hg] Stephen Phoenix DO Work Phone: [facility] 09-23-2024 14:10-0400 Diastolic blood pressure 70 mm[Hg] Zi Tineosner DO Work Phone: [facility] 09-23-2024 14:10-0400 Heart rate 77 /min Zi Tineosner DO Work Phone: [facility] 09-23-2024 14:10-0400 Respiratory rate 18 /min Zi Tineosner DO Work Phone: [facility] 09-23-2024 14:10-0400 SaO2% (BldA) [Mass fraction] 96 % Zi Tineosner DO Work Phone: [facility] 09-23-2024 14:10-0400 Systolic blood pressure 110 mm[Hg] Zi Rivkasner DO Work Phone: [facility] 09-07-2024 08:15-0400 Body height 157.5 cm Stephen Phoenix DO Work Phone: [facility] 09-07-2024 08:15-0400 Body mass index (BMI) [Ratio] 32.06 kg/m2 Stephen Phoenix DO Work Phone: [facility] 09-07-2024 08:15-0400 Body weight 79.5 kg Stephen Phoenix DO Work Phone: [facility] 09-07-2024 08:15-0400 Diastolic blood pressure 74 mm[Hg] Stephen Phoenix DO Work Phone: [facility] 09-07-2024 08:15-0400 Heart rate 66 /min Stephen Phoenix DO Work Phone: [facility] 09-07-2024 08:15-0400 SaO2% (BldA) [Mass fraction] 93 % Stephen Phoenix DO Work Phone: [facility] 09-07-2024 08:15-0400 Systolic blood pressure 114 mm[Hg] Stephen Phoenix DO Work Phone: [facility] 08-10-2024 13:14-0400 Body height 157.5 cm Stephen Phoenix DO Work Phone: [facility] 08-10-2024 13:14-0400 Body mass index (BMI) [Ratio] 33.27 kg/m2 Stephen Phoenix DO Work Phone: [facility] 08-10-2024 13:14-0400 Body weight 82.5 kg Stephen Phoenix DO Work Phone: [facility] 08-10-2024 13:14-0400 Diastolic blood pressure 75 mm[Hg] Stephen Phoenix DO Work Phone: [facility] 08-10-2024 13:14-0400 Heart rate 74 /min Stephen Phoenix DO Work Phone: [facility] 08-10-2024 13:14-0400 SaO2% (BldA) [Mass fraction] 95 % Stephen Phoenix DO Work Phone: [facility] 08-10-2024 13:14-0400 Systolic blood pressure 114 mm[Hg] Stephen Phoenix DO Work Phone: [facility] 06-21-2024 16:23-0500 Body temperature 98.6 [degF] [place] Ny DO Work Phone: [facility] 06-21-2024 16:23-0500 Diastolic blood pressure 66 mm[Hg] [place] Ny DO Work Phone: [facility] 06-21-2024 16:23-0500 Heart rate 80 /min [place] Ny DO Work Phone: [facility] 06-21-2024 16:23-0500 SaO2% (BldA) [Mass fraction] 96 % Portia Ny DO Work Phone: [facility] 06-21-2024 16:23-0500 Systolic blood pressure 118 mm[Hg] [place] Ny DO Work Phone: [facility] 06-21-2024 13:50-0500 Body height 157.5 cm Devorah Salazar PA-C Work Phone: [facility] 06-21-2024 13:50-0500 Body mass index (BMI) [Ratio] 34.75 kg/m2 Devorah Kalka PA-C Work Phone: [facility] 06-21-2024 13:50-0500 Body weight 86.18 kg Devorah Kalka PA-C Work Phone: [facility] 06-21-2024 13:50-0500 Diastolic blood pressure 68 mm[Hg] Devorah Kalka PA-C Work Phone: [facility] 06-21-2024 13:50-0500 Heart rate 100 /min Devorah Kalka PA-C Work Phone: [facility] 06-21-2024 13:50-0500 Systolic blood pressure 122 mm[Hg] Devorah Kalka PA-C Work Phone: [facility] 06-10-2024 14:41-0500 Diastolic blood pressure 80 mm[Hg] Portia Ny DO Work Phone: [facility] 06-10-2024 14:41-0500 Systolic blood pressure 130 mm[Hg] Portia Ny DO Work Phone: [facility] 06-10-2024 14:10-0500 Body height 157.5 cm [place] Ny DO Work Phone: [facility] 06-10-2024 14:10-0500 Body mass index (BMI) [Ratio] 34.39 kg/m2 [place] Ny DO Work Phone: [facility] 06-10-2024 14:10-0500 Body temperature 98.2 [degF] Portia Ny DO Work Phone: [facility] 06-10-2024 14:10-0500 Body weight 85.28 kg Portia Ny DO Work Phone: [facility] 06-10-2024 14:10-0500 Heart rate 77 /min [place] Ny DO Work Phone: [facility] 01-16-2025 14:10-0500 SaO2% (BldA) [Mass fraction] 97 % Portia Schaeferrio DO Work Phone: [facility] 05-11-2024 13:38-0500 Body height 157.5 cm Stephen Phoenix DO Work Phone: [facility] 05-11-2024 13:38-0500 Body mass index (BMI) [Ratio] 33.79 kg/m2 Stephen Phoenix DO Work Phone: [facility] 05-11-2024 13:38-0500 Body weight 83.8 kg Stephen Phoenix DO Work Phone: [facility] 05-11-2024 13:38-0500 Diastolic blood pressure 77 mm[Hg] Stephen Phoenix DO Work Phone: [facility] 05-11-2024 13:38-0500 Heart rate 76 /min Stephen Phoenix DO Work Phone: [facility] 05-11-2024 13:38-0500 SaO2% (BldA) [Mass fraction] 96 % Stephen Phoenix DO Work Phone: [facility] 05-11-2024 13:38-0500 Systolic blood pressure 126 mm[Hg] Stephen Phoenix DO Work Phone: [facility] 02-17-2024 08:48-0400 Body height 157.5 cm Stephen Phoenix DO Work Phone: [facility] 02-17-2024 08:48-0400 Body mass index (BMI) [Ratio] 34.6 kg/m2 Stephen Phoenix DO Work Phone: [facility] 02-17-2024 08:48-0400 Body weight 85.8 kg Stephen Phoenix DO Work Phone: [facility] 02-17-2024 08:48-0400 Diastolic blood pressure 72 mm[Hg] Stephen Phoenix DO Work Phone: [facility] 02-17-2024 08:48-0400 Heart rate 76 /min Stephen Phoenix DO Work Phone: [facility] 02-17-2024 08:48-0400 SaO2% (BldA) [Mass fraction] 96 % Stephen Phoenix DO Work Phone: [facility] 02-17-2024 08:48-0400 Systolic blood pressure 115 mm[Hg] Stephen Phoenix DO Work Phone: [facility] 01-06-2024 14:25-0400 Body height 157.5 cm Stephen Phoenix DO Work Phone: [facility] 01-06-2024 14:25-0400 Body mass index (BMI) [Ratio] 33.11 kg/m2 Stephen Phoenix DO Work Phone: [facility] 01-06-2024 14:25-0400 Body weight 82.1 kg Stephen Phoenix DO Work Phone: [facility] 01-06-2024 14:25-0400 Diastolic blood pressure 83 mm[Hg] Stephen Phoenix DO Work Phone: [facility] 01-06-2024 14:25-0400 Heart rate 73 /min Stephen Phoenix DO Work Phone: [facility] 01-06-2024 14:25-0400 SaO2% (BldA) [Mass fraction] 96 % Stephen Phoenix DO Work Phone: [facility] 01-06-2024 14:25-0400 Systolic blood pressure 132 mm[Hg] Stephen Phoenix DO Work Phone: [facility] 12-09-2023 16:08-0400 Body height 157.5 cm Portia Ny DO Work Phone: [facility] 12-09-2023 16:08-0400 Body mass index (BMI) [Ratio] 33.11 kg/m2 [place] Ny DO Work Phone: [facility] 12-09-2023 16:08-0400 Body weight 82.1 kg Portia Ny DO Work Phone: [facility] 12-09-2023 16:08-0400 Diastolic blood pressure 60 mm[Hg] [place] Ny DO Work Phone: [facility] 12-09-2023 16:08-0400 Heart rate 71 /min [place] Ny DO Work Phone: [facility] 12-09-2023 16:08-0400 SaO2% (BldA) [Mass fraction] 96 % [place] Ny DO Work Phone: [facility] 12-09-2023 16:08-0400 Systolic blood pressure 100 mm[Hg] Portia Ny DO Work Phone: [facility] 12-05-2023 11:12-0400 Body mass index (BMI) [Ratio] 33.71 kg/m2 Stephen Phoenix DO Work Phone: [facility] 12-05-2023 11:12-0400 Body weight 83.6 kg Stephen Phoenix DO Work Phone: [facility] 12-05-2023 11:12-0400 Diastolic blood pressure 72 mm[Hg] Stephen Phoenix DO Work Phone: [facility] 12-05-2023 11:12-0400 Heart rate 68 /min Stephen Phoenix DO Work Phone: [facility] 12-05-2023 11:12-0400 Respiratory rate 16 /min Stephen Phoenix DO Work Phone: [facility] 12-05-2023 11:12-0400 SaO2% (BldA) [Mass fraction] 95 % Stephen Phoenix DO Work Phone: [facility] 12-05-2023 11:12-0400 Systolic blood pressure 114 mm[Hg] Stephen Phoenix DO Work Phone: [facility] 11-07-2023 15:23-0400 Body height 157.5 cm Pst 1 [facility] 11-07-2023 15:23-0400 Body mass index (BMI) [Ratio] 32.92 kg/m2 Pst 1 [facility] 11-07-2023 15:23-0400 Body temperature 98.8 [degF] Pst 1 [facility] 11-07-2023 [id number] Body weight 81.65 kg Pst 1 [facility] 11-07-2023 15:230400 Diastolic blood pressure 73 mm[Hg] Pst 1 [facility] 11-07-2023 15:230400 Heart rate 66 /min Pst 1 [facility] 11-07-2023 15:230400 Respiratory rate 16 /min Pst 1 [facility] 11-07-2023 15:23-0400 SaO2% (BldA) [Mass fraction] 96 % Pst 1 [facility] 11-07-2023 15:230400 Systolic blood pressure 119 mm[Hg] Pst 1 [facility] 10-24-2023 12:13-0400 Body mass index (BMI) [Ratio] 35.08 kg/m2 Stephen Phoenix DO Work Phone: [facility] 10-24-2023 12:13-0400 Body weight 87 kg Stephen Phoenix DO Work Phone: [facility] 10-24-2023 12:13-0400 Diastolic blood pressure 80 mm[Hg] Stephen Phoenix DO Work Phone: [facility] 10-24-2023 12:13-0400 Heart rate 73 /min Stephen Phoenix DO Work Phone: [facility] 10-24-2023 12:13-0400 Respiratory rate 16 /min Stephen Phoenix DO Work Phone: [facility] 10-24-2023 12:13-0400 SaO2% (BldA) [Mass fraction] 94 % Stephen Phoenix DO Work Phone: [facility] 10-24-2023 12:13-0400 Systolic blood pressure 132 mm[Hg] Stephen Phoenix DO Work Phone: [facility] 08-01-2023 10:12-0500 Body height 157.5 cm Stephen Phoenix DO Work Phone: [facility] 08-01-2023 10:12-0500 Body weight 85.4 kg Stephen Phoenix DO Work Phone: [facility] 08-01-2023 10:12-0500 Diastolic blood pressure 77 mm[Hg] Stephen Phoenix DO Work Phone: [facility] 08-01-2023 10:12-0500 Heart rate 67 /min Stephen Phoenix DO Work Phone: [facility] 08-01-2023 10:12-0500 Respiratory rate 16 /min Stephen Phoenix DO Work Phone: [facility] 08-01-2023 10:12-0500 SaO2% (BldA) [Mass fraction] 95 % Stephen Phoenix DO Work Phone: [facility] 08-01-2023 10:12-0500 Systolic blood pressure 124 mm[Hg] Stephen Phoenix DO Work Phone: [facility] 07-21-2023 11:55-0500 Diastolic blood pressure 80 mm[Hg] [place] Ny DO Work Phone: [facility] 07-21-2023 11:55-0500 Systolic blood pressure 136 mm[Hg] [place] Ny DO Work Phone: [facility] 07-21-2023 11:26-0500 Body height 157.5 cm Portia Ny DO Work Phone: [facility] 07-21-2023 11:26-0500 Body temperature 98.2 [degF] [place] Ny DO Work Phone: [facility] 07-21-2023 11:26-0500 Body weight 83.01 kg Portia Ny DO Work Phone: [facility] 07-21-2023 11:26-0500 Heart rate 73 /min Portia Ny DO Work Phone: [facility] [facility] 07-21-2023 11:26-0500 SaO2% (BldA) [Mass fraction] 92 % [place] Ny DO Work Phone: [facility] 07-15-2023 08:28-0500 Body height 157.5 cm Rito Adam MD Work Phone: [facility] 07-15-2023 08:28-0500 Body temperature 98.4 [degF] Rito Adam MD Work Phone: [facility] 07-15-2023 08:28-0500 Body weight 83.96 kg Rito Adam MD Work Phone: [facility] 07-15-2023 08:28-0500 Diastolic blood pressure 59 mm[Hg] Rito Adam MD Work Phone: [facility] 07-15-2023 08:28-0500 Systolic blood pressure 130 mm[Hg] Rito Adam MD Work Phone: [facility] 12-05-2022 09:27-0400 Body height 157.5 cm Leonardo Goss MD Work Phone: [facility] 12-05-2022 09:27-0400 Body weight 72.58 kg Leonardo Goss MD Work Phone: [facility] 12-05-2022 09:27-0400 Diastolic blood pressure 74 mm[Hg] Leonardo Goss MD Work Phone: [facility] 12-05-2022 09:27-0400 Heart rate 66 /min Leonardo Goss MD Work Phone: [facility] 12-05-2022 09:27-0400 Respiratory rate 12 /min Leonardo Goss MD Work Phone: [facility] 12-05-2022 09:27-0400 SaO2% (BldA) [Mass fraction] 96 % Leonardo Goss MD Work Phone: [facility] 12-05-2022 09:27-0400 Systolic blood pressure 125 mm[Hg] Leonardo Goss MD Work Phone: [facility] 11-12-2022 14:06-0400 Diastolic blood pressure 69 mm[Hg] Shy Barrios MD Work Phone: [facility] 11-12-2022 14:06-0400 Heart rate 70 /min Shy Barrios MD Work Phone: [facility] 11-12-2022 14:06-0400 Respiratory rate 16 /min Shy Barrios MD Work Phone: [facility] 11-12-2022 14:06-0400 SaO2% (BldA) [Mass fraction] 95 % Shy Barrios MD Work Phone: [facility] 11-12-2022 14:06-0400 Systolic blood pressure 142 mm[Hg] Shy Barrios MD Work Phone: [facility] 11-12-2022 13:51-0400 Body temperature 97.3 [degF] Shy Barrios MD Work Phone: [facility] 11-12-2022 13:07-0400 Body height 157.5 cm Shy Barrios MD Work Phone: [facility] 11-12-2022 13:07-0400 Body mass index (BMI) [Ratio] 29.08 kg/m2 Shy Barrios MD Work Phone: [facility] 11-12-2022 13:07-0400 Body weight 72.12 kg Shy Barrios MD Work Phone: [facility] 08-28-2022 15:36-0400 Body height 157.5 cm Estefany Preciado MD Work Phone: [facility] 08-28-2022 15:36-0400 Body temperature 97 [degF] Estefany Preciado MD Work Phone: [facility] 08-28-2022 15:36-0400 Body weight 72.58 kg Estefany Preciado MD Work Phone: [facility] 08-28-2022 15:36-0400 Diastolic blood pressure 88 mm[Hg] Estefany Preciado MD Work Phone: [facility] 08-28-2022 15:36-0400 Heart rate 88 /min Estefany Preciado MD Work Phone: [facility] 08-28-2022 15:36-0400 SaO2% (BldA) [Mass fraction] 95 % Estefany Preciado MD Work Phone: [facility] 08-28-2022 15:36-0400 Systolic blood pressure 124 mm[Hg] Estefany Preciado MD Work Phone: [facility] Encounters Encounter Date Encounter Type Care Provider Facility Start: 05-13-2025 ambulatory Yung Villatoro Facilit y:[facility] Start: 03-31-2025 End: 03-31-2025 ambulatory WILLAM JEISON [facility] Start: 03-28-2025 End: 03-28-2025 ambulatory PORTIA JARAD [place] Facility:[facility] Start: 03-17-2025 End: 03-17-2025 ambulatory CAITLIN Y JACK [facility] Start: 03-11-2025 End: 03-11-2025 ambulatory WILLAM JEISON [facility] Start: 03-10-2025 End: 03-10-2025 ambulatory CAITLIN Y JACK [facility] Start: 03-08-2025 End: 03-08-2025 ambulatory PORTIA JARAD [place] Facility[facility] Start: 03-07-2025 ambulatory ASHVILLE GERAR D [place] Facility:[facility] Start: 02-24-2025 End: 02-24-2025 ambulatory A[place] JARAD [place] Facility:[facility] Start: 02-22-2025 End: 02-22-2025 ambulatory A[place] JARAD [place] Facility:[facility] Start: 02-18-2025 End: 02-18-2025 ambulatory WILLAM JEISON Facility[facility] Start: 02-08-2025 ambulatory ASHVILLE GERAR D [place] Facility:[facility] Start: 02-08-2025 End: 02-08-2025 Subsequent hospital visit by physician Mri Radio [facility] Wstr (I-Stat/1.5t) Work Phone: Radiology Comment on above: Gait abnormality [R2 6.9] Start: 02-04-2025 End: 02-04-2025 Patient encounter procedure Willam Mchugh DC Work Phone: [facility] Comment on above: Chronic bilateral lo w back pain without sciatica (Primary Dx) Start: 02-04-2025 End: 02-04-2025 ambulatory ZI STANTON Facility:[facility] Start: 01-28-2025 End: 01-28-2025 Office outpatient visit 15 minutes Stephen Rizo DO Work Phone: [facility] Comment on above: Gait abnormality (Pr imary Dx) Start: 01-28-2025 End: 01-28-2025 ambulatory STEPHEN RIZO [facility] Start: 01-27-2025 End: 01-28-2025 Refill Portiamelissa Calhoun DO Work Phone: [facility] Comment on above: Refill Request Start: 01-25-2025 End: 01-25-2025 ambulatory PORTIA CALHOUN Facility:[facility] Start: 01-25-2025 End: 01-25-2025 Patient encounter procedure Portia Calhoun DO Work Phone: [facility] Comment on above: Medicare annual well ness visit, subsequent (Primary Dx); Encounter for screening mammogram for breast cancer; Change in bowel habits; Generalized arthritis; Anxiety with depression; Arthritis of both hands; Overweight with body mass index (BMI) of 25 to 25.9 in adult Start: 01-20-2025 End: 01-20-2025 ambulatory WILLAM MCHUGH Facility:[facility] Start: 01-20-2025 End: 01-20-2025 Patient encounter procedure Willam Mchugh DC Work Phone: [facility] Comment on above: Chronic bilateral lo w back pain without sciatica (Primary Dx) Start: 01-12-2025 ambulatory PORTIA CALHOUN Facility:[facility] Start: 01-12-2025 End: 01-12-2025 Subsequent hospital visit by physician Brandy [facility] Mary Akte Mob Work Phone: Radiology Comment on above: Degenerative disc di sease, cervical [M50.30] Start: 01-10-2025 End: 01-11-2025 Refill Portiamelissa Calhoun DO Work Phone: [facility] Comment on above: Refill Request Start: 01-07-2025 End: 01-07-2025 Telephone encounter Zi Stanton DO Work Phone: [facility] Comment on above: Procedure Follow Up (RACHEL SI JOINT INJ) Start: 01-06-2025 End: 01-06-2025 Patient encounter procedure Zi Stanton DO Work Phone: [facility] Start: 01-06-2025 End: 01-06-2025 ambulatory Zi Stanton DO Work Phone: [facility] Comment on above: Back Pain; Hip Pain; Leg Pain (Pain to lower back , right hip , radiating down right leg, bialt. knees) Start: 12-28-2024 End: 12-28-2024 Refill Devorah Salazar PA-C Work Phone: [facility] [place] Comment on above: Refill Request Start: 12-27-2024 End: 12-27-2024 ambulatory WILLAM MCHUGH Facility:[facility] Start: 12-27-2024 End: 12-27-2024 Patient encounter procedure Willam Mchugh DC Work Phone: [facility] Comment on above: Chronic bilateral lo w back pain without sciatica (Primary Dx) Start: 12-20-2024 ambulatory PORTIA CALHOUN Facility:[facility] Start: 12-20-2024 End: 12-20-2024 Subsequent hospital visit by physician Mri Radio [facility] Wstr (I-Stat/1.5t) Work Phone: Radiology Comment on above: Spinal stenosis of c ervical region [M48.02] Start: 12-17-2024 End: 12-17-2024 Refill [place] Jaradlety Calhoun DO Work Phone: [facility] [place] Comment on above: Refill Request Start: 12-13-2024 ambulatory PORTIA CALHOUN Facility:[facility] Start: 12-13-2024 End: 12-13-2024 Subsequent hospital visit by physician Brandy [facility] Mary Kate Hobbs Work Phone: Radiology Comment on above: Spinal stenosis of c ervical region [M48.02] Start: 12-09-2024 End: 12-09-2024 Patient encounter procedure Willam Mchugh DC Work Phone: [facility] Comment on above: Chronic bilateral lo w back pain without sciatica (Primary Dx); Impairment of balance; Post laminectomy syndrome Start: 12-09-2024 End: 12-09-2024 ambulatory WILLAM MCHUGH [facility] Start: 12-07-2024 End: 12-07-2024 Telephone encounter Cynthia Monreal LMT [facility] Comment on above: Insurance Authorizat ion (CHIRO 2024) Start: 12-03-2024 End: 12-03-2024 Telephone encounter Zi Stanton DO Work Phone: [facility] Comment on above: Medication Problem Start: 12-03-2024 End: 12-03-2024 Office outpatient new 45 minutes Zi Stanton DO Work Phone: [facility] Comment on above: Spinal stenosis of c ervical region (Primary Dx); Degenerative disc disease, cervical; Impairment of balance; Post laminectomy syndrome; Sacroiliitis Start: 12-03-2024 End: 12-03-2024 ambulatory ZI STANTON Facility[facility] Start: 10-25-2024 End: 10-25-2024 Telephone encounter Arnoldo Barrios MD, PhD Work Phone: [facility] Start: 10-21-2024 End: 10-21-2024 Telephone encounter Stephen Rizo DO Work Phone: [facility] Start: 10-12-2024 End: 10-12-2024 Refill Portia Jarad Calhoun DO Work Phone: [facility] [place] Comment on above: Refill Request Start: 10-08-2024 End: 10-08-2024 Patient encounter procedure Stephen Rizo DO Work Phone: [facility] Comment on above: Sacroiliitis (Primar y Dx) Start: 10-08-2024 End: 10-08-2024 ambulatory [facility] Facility:[facility] Start: 09-27-2024 End: 09-27-2024 Refill Devorah Salazar PA-C Work Phone: [facility] [place] Comment on above: Refill Request Start: 09-24-2024 End: 09-24-2024 Telephone encounter Zi Stanton DO Work Phone: [facility] Start: 09-23-2024 End: 09-23-2024 ambulatory Zi Stanton DO Work Phone: [facility] Comment on above: Procedure (tfesi); B ack Pain (Lower - bilateral - left is worse) Start: 09-23-2024 End: 09-23-2024 Patient encounter procedure Zi Stanton DO Work Phone: [facility] Start: 09-23-2024 End: 09-23-2024 [facility] Start: 09-07-2024 End: 09-07-2024 Telephone encounter Eben Jonas MD Work Phone: [facility] Comment on above: Fast Track Start: 09-07-2024 End: 09-07-2024 Patient encounter procedure Stephen Rizo DO Work Phone: [facility] Comment on above: Radiculopathy, lumba r region (Primary Dx) Start: 09-07-2024 End: 09-07-2024 ambulatory [facility] Facility:[facility] Start: 08-31-2024 End: 10-01-2024 Patient encounter procedure Portia Calhoun DO Work Phone: [facility] Start: 08-31-2024 End: 10-01-2024 ambulatory Portia Calhoun DO Work Phone: [facility] Start: 08-31-2024 End: 08-31-2024 Subsequent hospital visit by physician Mri Radio [facility] Wstr (I-Stat/1.5t) Work Phone: Radiology Comment on above: Radiculopathy of lum bar region [M54.16] Start: 08-20-2024 End: 10-20-2024 Follow-up encounter Devorah Salazar PA-C Work Phone: [facility] [place] Start: 08-17-2024 End: 08-18-2024 Refill Portia Calhoun DO Work Phone: [facility] Comment on above: Refill Request Start: 08-17-2024 End: 09-01-2024 Telephone encounter Devorah Salazar PA-C Work Phone: [facility] [place] Comment on above: Appointment Start: 08-13-2024 End: 08-13-2024 Follow-up encounter Portia Calhoun DO Work Phone: [facility] Comment on above: Results Start: 08-13-2024 End: 08-13-2024 Telephone encounter Portia Calhoun DO Work Phone: [facility] Comment on above: Consult (Consult to Gastroenterology //Alkaline phosphatase elevation //Confirmation number: [id number]/) Start: 08-11-2024 End: 08-11-2024 ambulatory PORTIA CALHOUN Facility:[facility] Start: 08-11-2024 End: 08-11-2024 Subsequent hospital visit by physician Ct [facility] Wstr (I-Stat) Work Phone: [facility] Comment on above: Abnormal liver enzym es [R74.8] Start: 08-10-2024 End: 08-10-2024 Patient encounter procedure Stephen Rizo DO Work Phone: [facility] Comment on above: S/P lumbar fusion (P rimary Dx); Radiculopathy of lumbar region Start: 08-10-2024 End: 08-10-2024 ambulatory PORTIA CALHOUN Facility:[facility] Start: 08-10-2024 End: 08-10-2024 Subsequent hospital visit by physician [facility] 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 Comment on above: S/P lumbar fusion [Z 98.1] Start: 08-01-2024 End: 08-02-2024 Refill Portia Calhoun DO Work Phone: [facility] Comment on above: Refill Request Start: 07-19-2024 End: 07-21-2024 Telephone encounter Devorah Salazar PA-C Work Phone: [facility] [place] Comment on above: Results (Lab results ) Start: 07-13-2024 End: 07-15-2024 E-mail encounter from caregiver Pérez Ling PT Work Phone: [facility] Start: 07-13-2024 End: 09-12-2024 Follow-up encounter Portia Calhoun DO Work Phone: [facility] Comment on above: Consult (GI consult placed for pt /D/t abnormal labs) Start: 07-13-2024 End: 07-13-2024 Telephone encounter Portia Calhoun DO Work Phone: [facility] Comment on above: Consult (Consult to Gastroenterology //Abnormal liver enzymes //Confirmation number: [id number]) Patient Update Start: 07-13-2024 End: 07-15-2024 ambulatory Pérez Ling PT Work Phone: [facility] Comment on above: Physical Therapy Start: 07-12-2024 ambulatory PORTIA YONAS CALHOUN Facility:[facility] Start: 07-07-2024 End: 09-06-2024 Follow-up encounter Madan Weber MD Work Phone: [facility] [place] Start: 07-05-2024 End: 07-05-2024 ambulatory PORTIA JARAD CALHOUN Facility:[facility] Start: 06-29-2024 End: 06-29-2024 ambulatory Poonam John STRIKER OFF Work Phone: [facility] Comment on above: Lumbar radiculopathy (Primary Dx) Start: 06-25-2024 End: 06-25-2024 ambulatory Poonam John STRIKER OFF Work Phone: [facility] Comment on above: Lumbar radiculopathy (Primary Dx); Recurrent falls while walking Start: 06-25-2024 End: 06-25-2024 Subsequent hospital visit by physician [facility] Mob 2 Work Phone: Radiology Comment on above: Elevated LFTs [R79.8 9] Start: 06-24-2024 ambulatory DEVORAH SALAZAR Facility: [facility] Start: 06-24-2024 End: 06-24-2024 Subsequent hospital visit by physician Gi/Gu 1 [facility] Comment on above: Esophageal dysphagia [R13.19] Start: 06-23-2024 End: 06-23-2024 ambulatory Poonam John STRIKER OFF Work Phone: [facility] Comment on above: Lumbar radiculopathy (Primary Dx) Start: 06-21-2024 End: 06-21-2024 Patient encounter procedure Portia Calhoun DO Work Phone: [facility] [place] Comment on above: Trigeminal neuralgia (Primary Dx); Elevated LFTs; Class 1 obesity with body mass index (BMI) of 34.0 to 34.9 in adult, unspecified obesity type, unspecified whether serious comorbidity present Start: 06-21-2024 End: 06-21-2024 ambulatory PORTIA SCHAEFERRIO Facility:[facility] Start: 06-21-2024 End: 06-21-2024 Telephone encounter Portia Calhoun DO Work Phone: [facility] Comment on above: Results Start: 06-21-2024 End: 06-21-2024 ambulatory PORTIA JARAD CAL[place]N Facility:[facility] Start: 06-21-2024 End: 06-21-2024 Patient encounter procedure Devorah Salazar PA-C Work Phone: [facility] [place] Comment on above: Elevated alkaline ph osphatase level (Primary Dx); Other irritable bowel syndrome; Esophageal dysphagia Start: 06-17-2024 End: 06-17-2024 ambulatory PORTIA JARAD CALHOUN Facility:[facility] Start: 06-10-2024 End: 06-10-2024 Patient encounter procedure Portia Calhoun DO Work Phone: [facility] Comment on above: S/P lumbar fusion (P rimary Dx); Anxiety with depression; Lumbar radiculopathy; Fibromyalgia; Trigeminal neuralgia; Screening for hyperlipidemia; Screening for thyroid disorder; BMI 34.0-34.9,adult Start: 06-10-2024 End: 06-10-2024 ambulatory PORTIA CALHOUN Facility:[facility] Start: 06-04-2024 End: 06-04-2024 ambulatory Pérez Ling PT Work Phone: [facility] Comment on above: Lumbar radiculopathy Start: 05-11-2024 End: 05-11-2024 Patient encounter procedure Stephen Rizo DO Work Phone: [facility] Comment on above: Lumbar radiculopathy (Primary Dx) Start: 05-11-2024 End: 05-11-2024 ambulatory STEPHEN RIZO Facility:[facility] Start: 05-11-2024 End: 05-11-2024 Subsequent hospital visit by physician [facility] Comment on above: S/P lumbar fusion [Z 98.1] Start: 05-03-2024 End: 05-03-2024 Refill Portia Calhoun DO Work Phone: [facility] Comment on above: Refill Request Start: 04-14-2024 End: 04-15-2024 ambulatory Portia Calhoun DO [facility] Start: 04-14-2024 End: 04-15-2024 Patient encounter procedure Portia Calhoun DO Work Phone: [facility] Comment on above: Metaprolol Start: 04-06-2024 End: 04-06-2024 Refill [facility] Kalka [facility]-C [facility] Comment on above: Refill Request Start: 03-21-2024 End: 03-22-2024 Refill Portia Calhoun DO Work Phone: [facility] Comment on above: Refill Request Start: 02-17-2024 End: 02-17-2024 Patient encounter procedure Stephen Rizo DO Work Phone: [facility] Comment on above: S/P lumbar fusion (P rimary Dx) Start: 02-16-2024 End: 02-16-2024 Subsequent hospital visit by physician Brandy [facility] Mary Kate Hobbs Work Phone: Radiology Comment on above: S/P lumbar fusion [Z 98.1] Start: 01-14-2024 End: 01-15-2024 Refill Portia Calhoun DO Work Phone: [facility] Comment on above: Refill Request Start: 01-09-2024 Refill Devorah Kalka PA-C [facility] Comment on above: Refill Request Start: 01-06-2024 End: 01-06-2024 Patient encounter procedure Stephen Kenton DO Work Phone: [facility] Comment on above: S/P lumbar fusion (P rimary Dx) Start: 01-05-2024 End: 01-05-2024 Subsequent hospital visit by physician Xr [facility] [place] Mob Work Phone: Radiology Comment on above: S/P lumbar fusion [Z 98.1] Start: 12-29-2023 Telephone encounter Stephen P P reston DO Work Phone: [facility] Comment on above: Appointment Start: 12-12-2023 Refill Stephen Alanis Prest on DO Work Phone: [facility] Comment on above: Refill Request Start: 12-09-2023 End: 12-09-2023 Patient encounter procedure Portia Calhoun DO Work Phone: [facility] [place] Comment on above: S/P lumbar fusion (P rimary Dx); Lumbar radiculopathy; Class 1 obesity with body mass index (BMI) of 33.0 to 33.9 in adult, unspecified obesity type, unspecified whether serious comorbidity present Start: 12-05-2023 End: 12-05-2023 Patient encounter procedure Stephen Alanis Phoenix DO Work Phone: [facility] Comment on above: Lumbar radiculopathy (Primary Dx) Start: 12-04-2023 End: 12-04-2023 Subsequent hospital visit by physician Xr [facility] Mary Kate Hobbs Work Phone: Radiology Comment on above: S/P lumbar fusion [Z 98.1] Start: 12-04-2023 Telephone encounter Stephen P P reston DO Work Phone: [facility] Comment on above: Appointment Start: 11-26-2023 Telephone encounter Stephen P P reston DO Work Phone: [facility] Start: 11-24-2023 ambulatory Susan SHEETS Senior Java J2E[employer] Developer Start: 11-24-2023 Home visit Susan Valente lm, RN AG Senior Java J2Ee Developer Comment on above: Transition Of Care ( AG D/C 11/23/23) Initial phone contact for Transitional Care Management Start: 11-07-2023 End: 11-07-2023 Subsequent hospital visit by physician Brandy Carter [facility] Comment on above: Lumbar radiculopathy [M54.16] Start: 11-07-2023 End: 11-07-2023 Admission to [facility] Bath 1 Pre Surgical Testing Start: 11-07-2023 End: 11-07-[address] 1 Pre Surgical Testing Comment on above: Preop examination (P rimary Dx); Lumbar radiculopathy; Palpitations Start: 11-07-2023 End: 11-07-2023 Preprocedural examination done Pst 1 [facility] Work Phone: Start: 10-27-2023 Orders Only Stephen Kent on DO Work Phone: [facility] Comment on above: Lumbar radiculopathy (Primary Dx) Start: 10-24-2023 End: 10-24-2023 Patient encounter procedure Stephen Rizo DO Work Phone: [facility] Comment on above: Lumbar radiculopathy (Primary Dx) Start: 10-14-2023 ambulatory Portia Calhoun DO Work Phone: [facility] Start: 10-14-2023 Patient encounter procedure Portia Calhoun DO Work Phone: [facility] [place] Comment on above: My Prescriptions for hydroxyzine and metoprolol. Start: 10-13-2023 Refill Portia carter Ny DO Work Phone: [facility] Comment on above: Refill Request Start: 10-06-2023 Refill Devorah Salazar PA-C Work Phone: [facility] [place] Comment on above: Refill Request Start: 09-30-2023 Telephone encounter Stephen martel DO Work Phone: [facility] Comment on above: Director Medical - O ther Start: 09-18-2023 End: 09-18-2023 ambulatory Sagar Olivia [facility] Comment on above: Recurrent falls whil e walking (Primary Dx); Fibromyalgia; Generalized osteoarthrosis Start: 09-11-2023 End: 09-11-2023 ambulatory Sagar Calero [facility] Comment on above: Recurrent falls whil e walking (Primary Dx); Fibromyalgia; Generalized osteoarthrosis Start: 08-28-2023 End: 08-28-2023 ambulatory Sagar Calero [facility] Comment on above: Recurrent falls whil e walking (Primary Dx); Fibromyalgia; Generalized osteoarthrosis Start: 08-22-2023 Refill Portia Calhoun DO Work Phone: [facility] Comment on above: Refill Request (dulo xetine) Start: 08-21-2023 End: 08-21-2023 ambulatory Sagar Olivia [facility] Comment on above: Recurrent falls whil e walking (Primary Dx); Fibromyalgia; Generalized osteoarthrosis Start: 08-04-2023 End: 08-04-2023 ambulatory Sagar Calero [facility] Comment on above: Generalized osteoart hrosis (Primary Dx); Fibromyalgia; Recurrent falls while walking Start: 08-01-2023 Telephone encounter Portia Calhoun DO Work Phone: [facility] [place] Comment on above: Consult (Consult to [facility], spondylosis and allied disorders confirm [id number]) Consult (Consult to spine medical center, spinal stenosis of lumbar region, confirm [id number]) Start: 08-01-2023 End: 08-01-2023 Patient encounter procedure Stephen Rizo DO Work Phone: [facility] Comment on above: Lumbar radiculopathy (Primary Dx) Start: 08-01-2023 End: 08-01-2023 Subsequent hospital visit by physician Brandy Kwan Palliative Medicine Physician [facility] [place] 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 Start: 07-31-2023 Telephone encounter Portia Calhoun DO Work Phone: [facility] Start: 07-24-2023 ambulatory UNKNOWN PROVIDER Facili ty:[facility] Start: 07-24-2023 End: 07-24-2023 Subsequent hospital visit by physician Mri [facility] (1.5t) Radiology Comment on above: Leg weakness, bilate ral [R29.898] Start: 07-21-2023 End: 07-21-2023 Patient encounter procedure Portia Calhoun DO Work Phone: [facility] [place] Comment on above: Fibromyalgia (Primar y Dx); Leg weakness, bilateral; Chronic joint pain; Acute midline low back pain without sciatica; Spinal stenosis of lumbar region with neurogenic claudication; Encounter for screening mammogram for breast cancer; Class 1 obesity with body mass index (BMI) of 33.0 to 33.9 in adult, unspecified obesity type, unspecified whether serious comorbidity present Start: 07-15-2023 End: 07-15-2023 Patient encounter procedure Rito Adam MD Work Phone: [facility] Comment on above: Generalized osteoart hrosis (Primary Dx); Fibromyalgia; Recurrent falls while walking Start: 07-08-2023 Refill Devorah Salazar PA-C Work Phone: [facility] [place] Comment on above: Refill Request Start: 07-03-2023 Refill Susan Padron APRN.CNP Work Phone: [facility] Comment on above: Refill Request Start: 03-25-2023 Refill Adali Grier PA-C Work Phone: [facility] [place] Comment on above: Refill Request Start: 02-14-2023 End: 02-14-2023 ambulatory FRANKO MAURO Facility:[id number] Start: 01-20-2023 Telephone encounter Leonardo Goss MD Work Phone: [facility] [place] Start: 01-17-2023 End: 01-17-2023 Subsequent hospital visit by physician Card Lab [facility] [place] [facility] Comment on above: VELÁZQUEZ (dyspnea on exer tion) [R06.09] Start: 12-24-2022 Refill Estefany Preciado MD Work Phone: [facility] [place] Comment on above: Refill Request Start: 12-05-2022 End: 12-05-2022 Patient encounter procedure Leonardo Goss MD Work Phone: [facility] [place] Comment on above: Palpitations (Primar y Dx); MERLYN (generalized anxiety disorder); VELÁZQUEZ (dyspnea on exertion); PVC (premature ventricular contraction) Start: 11-12-2022 Telephone encounter Estefany Saenz MD Work Phone: [facility] [place] Comment on above: Medication Authoriza tion (hydroxyzine) Start: 11-12-2022 End: 11-12-2022 Subsequent hospital visit by physician Shy Barrios MD Work Phone: Ambulatory Surgery Comment on above: Chronic diarrhea [K5 2.9] Start: 10-02-2022 Refill Adali Grier PA-C Work Phone: Internal Medicine [facility] [place] Comment on above: Refill Request Start: 09-25-2022 Telephone encounter Estefany Saenz MD Work Phone: [facility] [place] Comment on above: Results Start: 09-06-2022 End: 09-06-2022 Subsequent hospital visit by physician [facility] Work Phone: Radiology Comment on above: Elevated liver enzym es [R74.8] Start: 09-04-2022 Telephone encounter Estefany Saenz MD Work Phone: [facility] [place] Comment on above: Results Phlebotomy Start: 08-30-2022 End: 08-30-2022 Nursing evaluation of patient and report Nurse Sonal Singleton [facility] Work Phone: [facility] [place] Comment on above: Palpitations (Primar y Dx) Start: 08-30-2022 Telephone encounter Estefany Saenz MD Work Phone: [facility] Comment on above: Results Start: 08-29-2022 Telephone encounter Estefany Saenz MD Work Phone: [facility] Comment on above: Patient Update Start: 08-28-2022 End: 08-28-2022 Patient encounter procedure Estefany Preciado MD Work Phone: [facility] Comment on above: Macroscopic hematuri a (Primary Dx); Chronic diarrhea; Foot pain, right; Other fatigue; Palpitations Start: 08-23-2022 Refill Estefany Preciado MD Work Phone: [facility] Comment on above: Refill Request Start: 06-27-2022 Refill Laury Magila vy TELEVISION NEWS PHOTOGRAPHER.FURNACE BUILDER Work Phone: [facility] Comment on above: Refill Request Start: 06-19-2022 ambulatory Estefany Preciado MD Work Phone: [facility] Start: 02-22-2022 Refill Laury Magila vy TELEVISION NEWS PHOTOGRAPHER.FURNACE BUILDER Work Phone: [facility] Comment on above: Refill Request Start: 11-06-2021 Refill Estefany Preciado MD Work Phone: [facility] Comment on above: Refill Request Start: 07-16-2021 End: 07-16-2021 [facility] department [facility] Start: 05-02-2017 End: 05-03-2017 Ambulatory [facility] Facility:[facility] Start: 04-22-2017 End: 04-23-2017 Ambulatory [facility] Facility:[facility] Procedures Date Procedure Procedure Detail Performing Clinician Start: 02-08-2025 Mri spinal canal tho racic w/o contrast matrl Stephen Rizo DO Work Phone: Start: 12-20-2024 Mri spinal canal cer vical w/o contrast matrl Zi Stanton DO Work Phone: Start: 08-31-2024 Mri spinal canal lum bar w/o & w/contr matrl Stephen Alanis Phoenix DO Work Phone: Start: 08-31-2024 Ct lumbar spine w/o contrast material Stephen Alanis Phoenix DO Work Phone: Start: 06-25-2024 Us abdominal real ti me w/image limited Portia Jarad Ny DO Work Phone: Start: 06-24-2024 Radiologic exam esop hagus single contrast study Devorah Salazar PA-C Work Phone: Start: 06-17-2024 Lipid 1996 panel - S nuha or Plasma [place] Ny DO Work Phone: Start: 07-24-2023 Mri spinal canal lum bar w/o contrast material [place] Jarad Ny DO Work Phone: Start: 05-16-2023 Lipid 1996 panel - S nuha or Plasma Susan Padron APRN.FURNACE BUILDER Work Phone: Start: 01-17-2023 Myocardial spect mul tiple studies Leonardo Goss MD Work Phone: Start: 12-05-2022 Ecg routine ecg w/le ast 12 lds w/i&r Leonardo Goss MD Work Phone: Start: 11-12-2022 Level iv surg pathol ogy gross&microscopic exam Shy Barrios MD Work Phone: Start: 11-12-2022 Colonoscopy flx dx w /collj spec when pfrmd Devorah Salazar PA-C Work Phone: Start: 11-12-2022 Colonoscopy Estefany marshall MD Work Phone: Start: 09-06-2022 Us abdominal real ti me w/image limited Estefany Preciado MD Work Phone: Start: 08-28-2022 Lipid 1996 panel - S nuha or Plasma Adali Grier PA-C Work Phone: Plan of Treatment Date Care Activity Detail Author Start: 06-17-2029 Lipid panel Lipid Screening [facility] Start: 05-16-2028 Lipid panel Lipid Screening [facility] Start: 08-29-2027 Lipid 1996 panel - Serum or Plasma Lipid Screening [facility] Start: 08-29-2027 LIPID SCREEN LIPID SCREEN [facility] Start: 06-17-2027 Diabetes Screening Diabetes Screening [facility] Start: 11-20-2026 Diabetes Screening Diabetes Screening [facility] Start: 11-06-2026 Diabetes Screening Diabetes Screening [facility] Start: 05-16-2026 Diabetes Screening Diabetes Screening [facility] Start: 01-25-2026 Pneumococcal Vaccine: 50+ (1 of 1 - PCV) Pneumococcal Vaccine: 50+ (1 of 1 - PCV) [facility] Comment on above: Postponed from 2002 (Declined at t his time) Start: 01-25-2026 RSV Vaccine (1 - Risk 60-74 years 1-dose series) RSV Vaccine (1 - Risk 60-74 years 1-dose series) [facility] Comment on above: Postponed from 2012 (Declined at t his time) Start: 01-25-2026 Shingrix Vaccine (1 of 2) Shingrix Vaccine (1 of 2) [facility] Comment on above: Postponed from 2002 (Declined at t his time) Start: 08-28-2025 DIABETES SCREEN DIABETES SCREEN [facility] Start: 08-28-2025 Diabetes Screening Diabetes Screening [facility] Start: 03-28-2025 End: 03-28-2025 Patient encounter procedure 03/28/2025 2:00 PM EST Office Visit Neurology [address] [address] Caitlin Santiago MD [address] [place] [address] Abnormality of Gait and Mobility Neurology Comment on above: Abnormality of Gait and Mobility Start: 03-08-2025 End: 03-08-2025 Patient encounter procedure 03/08/2025 2:30 PM EDT Office Visit [facility] [place] [address] [place] [address] Portia Calhoun DO [address] [place] [address] f/u 6 weeks medication recheck [facility] [place] Comment on above: f/u 6 weeks medication recheck Start: 03-07-2025 End: 03-07-2025 Patient encounter procedure 03/07/2025 1:30 PM EDT Appointment Mammogram [address] [place], [place] [id number] Mammogram Start: 02-22-2025 End: 02-22-2025 Patient encounter procedure 02/22/2025 8:00 AM EDT Office Visit Neurology [address] [id number] Caitlin Santiago MD [address] [place] [address] Abnormality of Gait and Mobility Neurology Comment on above: Abnormality of Gait and Mobility Start: 02-18-2025 End: 02-18-2025 Patient encounter procedure 02/18/2025 1:00 PM EDT Office [facility] [address] [address] Willam Mchugh [place] [address] [address] auc and manip [facility] Comment on above: auc and manip Start: 02-15-2025 End: 02-15-2025 Patient encounter procedure [facility] 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 Comment on above: xrays-GP 6 wk fu with xrays t kori Start: 02-08-2025 End: 02-08-2025 Patient encounter procedure 02/08/2025 3:30 PM EDT Appointment Radiology [address] [place], [place] [address] Gait abnormality [R26.9] Radiology Comment on above: Gait abnormality [R26.9] Start: 02-04-2025 End: 02-04-2025 Patient encounter procedure 02/04/2025 1:00 PM EDT Office Visit [facility] [address] [place] [address] Willam Mchugh [place] [address] [place] [address] acu and manip [facility] Comment on above: acu and manip Start: 01-25-2025 End: 01-25-2025 Patient encounter procedure 01/25/2025 2:15 PM EDT Office Visit [facility] [address] [place] [address] Portia Calhoun [address] [place] [address] medicare wellness [facility] Comment on above: medicare wellness Start: 01-21-2025 End: 01-21-2025 Patient encounter procedure 01/21/2025 1:45 PM EDT Office Visit [facility] [address] [facility] [place] [phone] Stephen Rizo [address] [place] [phone] 2 wk f/u after injection [facility] Comment on above: 2 wk f/u after injection Start: 01-21-2025 End: 01-21-2025 Patient encounter procedure 01/21/2025 8:45 AM EDT Office Visit [facility] [address] [place] [address] Conrado Barba APRN.[facility] [address] [place] [address] INJECTION FOLLOW UP [facility] Comment on above: INJECTION FOLLOW UP Start: 01-20-2025 End: 01-20-2025 Patient encounter procedure 01/20/2025 1:30 PM EDT Office Visit [facility] [address] [place], [place] [phone] Willam Mchugh DC [address] [place], [place] [address] acu and manip [facility] Comment on above: acu and manip Start: 01-18-2025 End: 01-18-2025 Patient encounter procedure 01/18/2025 1:30 PM EDT Office Visit [facility] [address] [place] [address] Portia Calhoun DO [address] [place] [address] medicare wellness [facility] Comment on above: medicare wellness Start: 01-11-2025 End: 01-11-2025 Patient encounter procedure 01/11/2025 2:30 PM EDT Office Visit [facility] [address] [place] [address] Portia Calhoun, DO [address] [place] [address] medicare wellness [facility] Comment on above: medicare wellness Start: 01-06-2025 End: 01-06-2025 Patient encounter procedure 01/06/2025 1:30 PM EDT Office Visit [facility] [address] [place] [address] Willam Mchugh DC [address] [place], [place] [phone] acu and manip [facility] Comment on above: acu and manip Start: 01-06-2025 End: 01-06-2025 ambulatory 01/06/2025 7:50 AM EDT Procedure [facility] [address] [place] [address] Zi Stanton DO [address] [facility] [address] [place] [address] Bilateral SIJ injection [facility] Comment on above: Bilateral SIJ injection Start: 12-23-2024 End: 12-23-2024 Patient encounter procedure [facility] Comment on above: acu and manip acu Start: 12-20-2024 End: 12-20-2024 Patient encounter procedure 12/20/2024 1:30 PM EDT Appointment Radiology [address] [place] [address] Spinal stenosis of cervical region [M48.02] Radiology Comment on above: Spinal stenosis of cervical region [M48. 02] Start: 12-09-2024 End: 12-09-2024 Patient encounter procedure [facility] Comment on above: NEW PATIENT NEW PATIENT *acu/man ip* Start: 12-03-2024 End: 12-03-2024 Patient encounter procedure 12/03/2024 9:00 AM EDT Office Visit [facility] [address] [facility] [address] [place] [address] Zi Stanton DO [address] [facility] [address] [place] [address] new back pain [facility] Comment on above: new back pain Start: 10-08-2024 End: 10-08-2024 Patient encounter procedure 10/08/2024 11:45 AM EDT Office Visit [facility] [address] [place] [address] Stephen Rizo DO [address] [place] [phone] 2 wk fu after injection [facility] Comment on above: 2 wk fu after injection Start: 09-29-2024 End: 09-29-2024 ambulatory 09/29/2024 2:45 PM EDT Results Only Mary Kate Bishopwn [facility] [address] [place] [address] Mary Kate Nielsenn [facility] Start: 09-07-2024 End: 09-07-2024 Patient encounter procedure 09/07/2024 8:15 AM EDT [facility] [address] [address] Stephen Rizo DO [address] [place] [address] follow up after imaging [facility] Comment on above: follow up after imaging Start: 08-31-2024 End: 08-31-2024 Patient encounter procedure 08/31/2024 7:15 AM EDT Office Visit [facility] [address] [address] Stephen Rizo DO [address] [place] [phone] follow up after imaging [facility] Comment on above: follow up after imaging Start: 08-24-2024 End: 08-24-2024 Patient encounter procedure 08/24/2024 9:30 AM EDT Appointment Radiology [address] [place] [address] MRI Radiology Comment on above: MRI Start: 08-24-2024 End: 08-24-2024 Patient encounter procedure 08/24/2024 8:20 AM EDT Appointment Cat Scan [address] [place] [address] CT LUMBAR SPINE WO IVCON Cat Scan Comment on above: CT LUMBAR SPINE WO IVCON Start: 08-11-2024 End: 08-11-2024 Patient encounter procedure 08/11/2024 2:20 PM EDT Appointment Cat Scan [address] [place] [address] Abnormal liver enzymes [R74.8]; Abnormal results of liver function studies [R94.5] Cat Scan Comment on above: Abnormal liver enzymes [R74.8]; Abnormal results of liver function studies [R94.5] Start: 08-10-2024 End: 08-10-2024 Patient encounter procedure [facility] 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 Comment on above: lumbar xr Called left VM to re tong (FL) X 2 Follow-up after 6 weeks of PT XR LUMBAR AP/LAT Start: 07-23-2024 End: 07-23-2024 Patient encounter procedure [facility] Comment on above: Follow-up after 6 weeks of PT Called left VM to re tong (FL) Follow-up after 6 weeks of PT Start: 07-21-2024 Pneumococcal Vaccine: 50+ (1 of 1 - PCV) Pneumococcal Vaccine: 50+ (1 of 1 - PCV) [facility] Comment on above: Postponed from 2002 (Declined at t his time) Start: 07-21-2024 Pneumococcal Vaccine: 65+ (1 of 1 - PCV) Pneumococcal Vaccine: 65+ (1 of 1 - PCV) [facility] Comment on above: Postponed from 2017 (Declined at t his time) Start: 07-21-2024 RSV Vaccine (1 - 1-dose 60+ series) RSV Vaccine (1 - 1-dose 60+ series) [facility] Comment on above: Postponed from 2012 (Declined at t his time) Start: 07-21-2024 RSV Vaccine (1 - Risk 60-74 years 1-dose series) RSV Vaccine (1 - Risk 60-74 years 1-dose series) [facility] Comment on above: Postponed from 2012 (Declined at t his time) Start: 07-21-2024 Shingrix Vaccine (1 of 2) Shingrix Vaccine (1 of 2) [facility] Comment on above: Postponed from 2002 (Declined at t his time) Start: 07-21-2024 Urine microalbumin profile DTaP,Tdap,Td Vaccine (1 - Tdap) [facility] Comment on above: Postponed from 1971 (Declined at t his time) Start: 07-19-2024 LIPID SCREEN LIPID SCREEN [facility] Start: 07-15-2024 End: 07-15-2024 ambulatory 07/15/2024 3:00 PM EST OT/PT/Speech Visit [facility] [address] [place] [address] Pérez Ling, PT [address] [place] [phone] back pain [facility] Comment on above: back pain Start: 07-13-2024 End: 07-13-2024 ambulatory 07/13/2024 3:00 PM EST OT/PT/Speech Visit [facility] [address] [place] [address] Pérez Ling, PT [address] [place] [address] back pain [facility] Comment on above: back pain Start: 07-09-2024 End: 07-09-2024 ambulatory 07/09/2024 2:45 PM EST OT/PT/Speech Visit [facility] [address] [place] [address] Poonam John, STRIKER OFF [address] [place] [address] back pain [facility] Comment on above: back pain Start: 07-06-2024 End: 07-06-2024 ambulatory 07/06/2024 2:00 PM EST OT/PT/Speech Visit [facility] [address] [place] [address] Poonam John, STRIKER OFF [address] [place] [address] back pain [facility] Comment on above: back pain Start: 07-05-2024 End: 07-05-2024 Patient encounter procedure 07/05/2024 2:30 PM EST Appointment Ambulatory Surgery [address] [place] [phone] Madan Weber MD [address] [place] [address] EGD Diagnostic Ambulatory Surgery Comment on above: EGD Diagnostic Start: 07-02-2024 End: 07-02-2024 ambulatory 07/02/2024 2:00 PM EST OT/PT/Speech Visit [facility] [address] [place] [address] oPonam John, [facility] [address] [address] back pain [facility] Comment on above: back pain Start: 06-29-2024 End: 06-29-2024 ambulatory 06/29/2024 2:00 PM EST OT/PT/Speech Visit [facility] [address] [place] [address] Poonam John, [facility] [address] [place] [address] back pain [facility] Comment on above: back pain Start: 06-28-2024 End: 06-28-2024 Anesthesia consultation 06/28/2024 11:59 PM EST Anesthesia Event Ambulatory Surgery [address] [place] [phone] Vanessa Nielsen APRN.MAINTENANCE OF WAY CLERK [address] [place] [address] Ambulatory Surgery Start: 06-25-2024 End: 06-25-2024 Patient encounter procedure 06/25/2024 9:15 AM EST Appointment Radiology [address] [place], [place] [address] US ABD RIGHT UPPER QUADRANT Radiology Comment on above: US ABD RIGHT UPPER QUADRANT Start: 06-25-2024 End: 06-25-2024 ambulatory 06/25/2024 8:00 AM EST OT/PT/Speech Visit [facility] [address] [place] [address] Poonam John, STRIKER OFF [address] [address] back pain [facility] Comment on above: back pain Start: 06-24-2024 End: 06-24-2024 Patient encounter procedure 06/24/2024 2:30 PM EST Appointment [facility] [address] [place] [address] Esophageal dysphagia [R13.19] [facility] Comment on above: Esophageal dysphagia [R13.19] Start: 06-23-2024 End: 06-23-2024 ambulatory 06/23/2024 5:15 PM EST OT/PT/Speech Visit [facility] [address] [place] [address] Poonam John, STRIKER OFF [address] [place] [address] back pain [facility] Comment on above: back pain Start: 06-21-2024 End: 06-21-2024 Patient encounter procedure 06/21/2024 4:15 [place] [address] [place] [address] f/u 1 week medication [facility] Comment on above: f/u 1 week medication Start: 06-21-2024 End: 09-20-2024 ANTI-SP100 AND ANTI-GP210 ANTIBODIES, IGG ANTI-SP100 AND ANTI-GP210 ANTIBODIES, IGG Lab Routine Elevated alkaline phosphatase level Expected: 06/21/2024, Expires: 09/20/2024 [facility] Comment on above: Expected: 06/21/2024, Expires: Start: 06-21-2024 End: 09-20-2024 Hepatic function 2000 panel - Serum or Plasma HEPATIC FUNCTION PNL Lab Routine Elevated alkaline phosphatase level Expected: 06/21/2024, Expires: 09/20/2024 [facility] Work Phone: Comment on above: Expected: 06/21/2024, Expires: Start: 06-21-2024 End: 09-20-2024 Mitochondria Ab [Presence] in Serum by Immunofluorescence MITOCHONDRIAL M2 IGG SERUM Lab Routine Elevated alkaline phosphatase level Expected: 06/21/2024, Expires: 09/20/2024 [facility] Comment on above: Expected: 06/21/2024, Expires: Start: 06-21-2024 End: 06-21-2024 Patient encounter procedure 06/21/2024 1:50 PM EST Office Visit [facility] [place] [address] [place] [address] Devorah Salazar PA-C [address] [place] [place] [address] yearly follow up; mychart request [facility] Comment on above: yearly follow up; mychart request Start: 06-10-2024 End: 06-10-2024 Patient encounter procedure 06/10/2024 2:15 PM EST Office Visit [facility] [address] [place] [address] Portia Calhoun DO [address] [place] [address] f/u 6 months [facility] Comment on above: f/u 6 months Start: 06-04-2024 End: 06-04-2024 ambulatory 06/04/2024 8:00 AM EST OT/PT/Speech Visit [place] [facility] Physical Therapy [address] [place] [address] Pérez Ling, PT [address] [place] [address] Lumbar radiculopathy [M54.16] [facility] [facility] Comment on above: Lumbar radiculopathy [M54.16] Start: 05-26-2024 Advance Directive Discussion Advance Directive Discussion [facility] Start: 05-26-2024 Medicare Advantage Annual Wellness Visit Medicare Advantage Annual Wellness Visit [facility] Start: 05-11-2024 End: 05-11-2024 Patient encounter procedure [facility] [place] 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 [address] [place] [phone] Stephen Rizo DO [address] [place] [phone] 4 week follow up [facility] Comment on above: 4 week follow up Start: 12-09-2023 End: 12-09-2023 Patient encounter procedure 12/09/2023 4:00 PM EDT Office Visit [facility] [place] [address] Portia Calhoun DO [address] [place] [id number] TCM AG D/C 11/23/23 - Lumbar radiculopathy with surgery [facility] Comment on above: TCM AG D/C 11/23/23 - Lumbar radiculopath y with surgery Start: 12-05-2023 End: 12-05-2023 Patient encounter procedure 12/05/2023 11:00 AM EDT Office Visit [facility] [address] [place] [phone] Stephen Rizo P, DO [address] [place] [address] 1st post op [facility] Comment on above: 1st post op Start: 12-04-2023 End: 12-04-2023 Patient encounter procedure 12/04/2023 4:50 PM EDT Appointment Radiology [address] [place] [address] S/P lumbar fusion [Z98.1] Radiology Comment on above: S/P lumbar fusion [Z98.1] Start: 11-20-2023 End: 11-20-2023 Admission to [facility] Comment on above: FUSION LUMBAR POSTERIOR LEVEL 1--L4-5 La minectomy and Fusion Start: 11-20-2023 End: 11-20-2023 Allograft for spine surgery only morselized ALLOGRAFT FOR SPINE SURGERY MORSELIZED Lumbar radiculopathy 11/20/2023 8:00 AM EDT [facility] Start: 11-20-2023 End: 11-20-2023 Arthrodesis posterior/posterolateral lumbar FUSION LUMBAR POSTERIOR LEVEL 1 Lumbar radiculopathy 11/20/2023 8:00 AM EDT [facility] Start: 11-20-2023 End: 11-20-2023 Autograft spine surgery local from same incision AUTOGRAFT FOR SPINE SURGERY ONLY, OBTAINED FROM SAME INCISION Lumbar radiculopathy 11/20/2023 8:00 AM EDT [facility] Start: 11-20-2023 End: 11-20-2023 Corea facetectomy & foramotomy 1 segment lumbar DECOMPRESSION LAMINECTOMY LUMBAR POSTERIOR LEVEL 1 Lumbar radiculopathy 11/20/2023 8:00 AM EDT [facility] Start: 11-20-2023 End: 11-20-2023 Posterior non-segmental instrumentation POSTERIOR NON-SEGMENTAL INSTRUMENTATION FOLLOWING LUMBAR FUSION 1 LEVEL PDFI Lumbar radiculopathy 11/20/2023 8:00 AM EDT [facility] Start: 11-20-2023 End: 11-20-2023 Stereotactic computer assisted px spinal [facility] Start: 11-20-2023 Subsequent hospital visit by physician 11/20/2023 8:00 AM EDT Hospital Encounter [facility] [address] [place] [address] Stephen Rizo, [address] [place] [phone] Lumbar radiculopathy [M54.16] [facility] Comment on above: Lumbar radiculopathy [M54.16] Start: 11-13-2023 Colonoscopy COLONOSCOPY [facility] Start: 11-13-2023 COLORECTAL CANCER SCREENING COLORECTAL CANCER SCREENING [facility] Start: 11-13-2023 Screening for malignant neoplasm of colon [facility] Start: 11-07-2023 End: 11-07-2023 ambulatory 11/07/2023 3:00 PM EDT PAT Pre Surgical Testing [address] [place] [address] sx 11/19 Pre Surgical Testing Comment on above: sx 11/19 Start: 10-24-2023 End: 10-24-2023 Patient encounter procedure 10/24/2023 12:00 PM EDT Office Visit [facility] [address] [place] [phone] Stephen Rizo DO [address] [place] [phone] Lumbar pain follow up [facility] Comment on above: Lumbar pain follow up Start: 09-30-2023 End: 09-30-2023 Patient encounter procedure 09/30/2023 10:45 AM EDT Office Visit [facility] [address] [place] [phone] Stephen Rizo DO [address] [place] [phone] Lum[facility] Comment on above: Lumbar pain follow up Start: 09-25-2023 End: 09-25-2023 ambulatory 09/25/2023 1:15 PM EDT OT/PT/Speech Visit [facility] [address] [place] [address] Sagar Calero, PT : Generalized osteoarthrosis [M15.9 (ICD-10-CM)]; Fibromyalgia [M79.7 (ICD-10-CM)]; Recurrent falls while walking [R29.6 (ICD-10-CM)] [facility] Comment on above: : Generalized osteoarthrosis [M15.9 (ICD -10-CM)]; Fibromyalgia [M79.7 (ICD-10-CM)]; Recurrent falls while walking [R29.6 (ICD-10-CM)] Start: 05-26-2023 Advance Directive Discussion Advance Directive Discussion [facility] Start: 01-24-2023 Influenza vaccination [facility] Start: 09-04-2022 End: 11-04-2022 ALK PHOS ISOENZYM BL ALK PHOS ISOENZYM BL Lab Routine Elevated LFTs Expected: 09/04/2022, Expires: 11/04/2022 [facility] Work Phone: Comment on above: Expected: 09/04/2022, Expires: 3 Start: 08-30-2022 End: 10-30-2022 ALK PHOS ISOENZYM BL ALK PHOS ISOENZYM BL Lab Routine Elevated liver enzymes Expected: 08/30/2022, Expires: 10/30/2022 [facility] Work Phone: Comment on above: Expected: 08/30/2022, Expires: 3 Start: 08-28-2022 End: 10-28-2022 Bacteria identified in Urine by Culture URINE CULTURE Microbiology Routine Macroscopic hematuria Expected: 08/28/2022, Expires: 10/28/2022 [facility] Work Phone: Comment on above: Expected: 08/28/2022, Expires: 3 Start: 08-28-2022 End: 10-28-2022 Comprehensive metabolic 2000 panel - Serum or Plasma [facility] Work Phone: Comment on above: Expected: 08/28/2022, Expires: 3 Start: 08-28-2022 End: 10-28-2022 LIPID PANEL, NONFASTING [facility] Work Phone: Comment on above: Expected: 08/28/2022, Expires: 3 Start: 08-28-2022 End: 10-28-2022 Thyroxine (T4) free [Mass/volume] in Serum or Plasma [facility] Work Phone: Comment on above: Expected: 08/28/2022, Expires: 3 Start: 08-28-2022 End: 10-28-2022 Triiodothyronine (T3) Free [Mass/volume] in Serum or Plasma [facility] Work Phone: Comment on above: Expected: 08/28/2022, Expires: 3 Start: 07-19-2022 DIABETES SCREEN DIABETES SCREEN [facility] Start: 05-26-2022 ADVANCE DIRECTIVE DISCUSSION ADVANCE DIRECTIVE DISCUSSION [facility] Start: 05-26-2022 DEPRESSION ASSESSMENT DEPRESSION ASSESSMENT [facility] Start: 01-24-2022 Influenza vaccination [facility] Start: 05-26-2021 ADVANCE DIRECTIVE DISCUSSION ADVANCE DIRECTIVE DISCUSSION [facility] Start: 05-26-2021 DEPRESSION ASSESSMENT DEPRESSION ASSESSMENT [facility] Start: 2017 BONE DENSITY BONE DENSITY [facility] Start: 2017 Bone Density Screening Bone Density Screening [facility] Start: 2017 Pneumococcal Vaccine: 65+ (1 - PCV) Pneumococcal Vaccine: 65+ (1 - PCV) [facility] Start: 2017 Pneumococcal Vaccine: 65+ (1 of 1 - PCV) Pneumococcal Vaccine: 65+ (1 of 1 - PCV) [facility] Start: 2017 PNEUMOCOCCAL: 65+ (1 - PCV) PNEUMOCOCCAL: 65+ (1 - PCV) [facility] Start: 2012 RSV Vaccine (1 - 1-dose 60+ series) RSV Vaccine (1 - 1-dose 60+ series) [facility] Start: 2012 RSV Vaccine (1 - Risk 60-74 years 1-dose series) RSV Vaccine (1 - Risk 60-74 years 1-dose series) [facility] Start: 2002 Pneumococcal Vaccine: 50+ (1 of 1 - PCV) Pneumococcal Vaccine: 50+ (1 of 1 - PCV) [facility] Start: 2002 SHINGRIX VACCINE (1 of 2) SHINGRIX VACCINE (1 of 2) [facility] Start: 1997 COLOGUARD (FIT-DNA) COLOGUARD (FIT-DNA) [facility] Start: 1997 Colonoscopy COLONOSCOPY [facility] Start: 1997 COLORECTAL CANCER SCREENING COLORECTAL CANCER SCREENING [facility] Start: [address] COLONOGRAPHY [facility] Start: 1997 FECAL OCCULT BLOOD FECAL OCCULT BLOOD [facility] Start: 1997 Screening for malignant neoplasm of colon [facility] Start: 1997 SIGMOIDOSCOPY SIGMOIDOSCOPY [facility] Start: 1992 Mammography [facility] Start: 1992 Screening for malignant neoplasm of breast Mammogram Screening [facility] Start: 1971 Urine microalbumin profile [facility] Start: 1964 Adult depression screening assessment DEPRESSION SCREENING [facility] Start: 1957 COVID-19 VACCINE (#1) COVID-19 VACCINE (#1) [facility] Start: 1952 COVID-19 VACCINE (#1) COVID-19 VACCINE (#1) [facility] Acupuncture 1/> ndle s w/o elec stimj init 15 min ACUPUNCT W/O STIMUL 15 MIN Procedures Routine Chronic bilateral low back pain without sciatica Ordered: 12/09/2024 [facility] Work Phone: Comment on above: Ordered: 12/09/2024 Acupuncture 1/> ndle s w/o elec stimj init 15 min ACUPUNCT W/O STIMUL 15 MIN Procedures Routine Chronic bilateral low back pain without sciatica Ordered: 12/27/2024 [facility] Work Phone: Comment on above: Ordered: 12/27/2024 Acupuncture 1/> ndle s w/o elec stimj init 15 min ACUPUNCT W/O STIMUL 15 MIN Procedures Routine Chronic bilateral low back pain without sciatica Ordered: 01/20/2025 [facility] Work Phone: Comment on above: Ordered: 01/20/2025 Acupuncture 1/> ndle s w/o elec stimj init 15 min ACUPUNCT W/O STIMUL 15 MIN Procedures Routine Chronic bilateral low back pain without sciatica Ordered: 02/04/2025 [facility] Comment on above: Ordered: 02/04/2025 Acupuncture 1/> ndls w/o elec stimj ea 15 min ACUPUNCT W/O STIMUL ADDL 15M Procedures Routine Chronic bilateral low back pain without sciatica Ordered: 12/09/2024 [facility] Comment on above: Ordered: 12/09/2024 Acupuncture 1/> ndls w/o elec stimj ea 15 min ACUPUNCT W/O STIMUL ADDL 15M Procedures Routine Chronic bilateral low back pain without sciatica Ordered: 12/27/2024 [facility] Comment on above: Ordered: 12/27/2024 Acupuncture 1/> ndls w/o elec stimj ea 15 min ACUPUNCT W/O STIMUL ADDL 15M Procedures Routine Chronic bilateral low back pain without sciatica Ordered: 01/20/2025 [facility] Comment on above: Ordered: 01/20/2025 Acupuncture 1/> ndls w/o elec stimj ea 15 min ACUPUNCT W/O STIMUL ADDL 15M Procedures Routine Chronic bilateral low back pain without sciatica Ordered: 02/04/2025 [facility] Work Phone: Comment on above: Ordered: 02/04/2025 ALK PHOS ISOENZYM BL ALK PHOS IS OENZYM BL Lab Routine Elevated LFTs 09/06/2022 2:04 PM EDT [facility] Work Phone: Clostridioides diffi cile toxin genes [Presence] in Stool by LENY with probe detection C. DIFFICILE PCR Lab Routine Chronic diarrhea Ordered: 08/28/2022 [facility] Work Phone: Comment on above: Ordered: 08/28/2022 CT Liver W contrast IV CT LIVER W IVCON Radiology Routine Abnormal liver enzymes Abnormal results of liver function studies 08/11/2024 3:11 PM EDT [facility] Work Phone: End: 09-09-2025 CT Lumbar spine WO contrast CT LUMBAR SPINE WO IVCON Radiology Routine Radiculopathy of lumbar region 1 Occurrences starting 08/10/2024 until 09/09/2025 [facility] Comment on above: 1 Occurrences starting 08/10/2024 until 09/09/2025 End: 09-30-2025 DBT Breast - bilateral screening ARIAN SCREENING W TUCKER Radiology Routine Encounter for screening mammogram for breast cancer 1 Occurrences starting 08/31/2024 until 09/30/2025 [facility] Work Phone: Comment on above: 1 Occurrences starting 08/31/2024 until 09/30/2025 End: 02-24-2026 DBT Breast - bilateral screening ARIAN SCREENING W TUCKER Radiology Routine Encounter for screening mammogram for breast cancer 1 Occurrences starting 01/25/2025 until 02/24/2026 [facility] Work Phone: Comment on above: 1 Occurrences starting 01/25/2025 until 02/24/2026 End: 09-05-2023 Echocardiography ECHO Cardiology Routine Palpitations 1 Occurrences starting 09/04/2022 until 09/05/2023 [facility] Work Phone: Comment on above: 1 Occurrences starting 09/04/2022 until 09/05/2023 ENTERIC BACTERIAL PA QUINTON BY PCR ENTERIC BACTERIAL PANEL BY PCR Lab Routine Chronic diarrhea Ordered: 08/28/2022 [facility] Work Phone: Comment on above: Ordered: 08/28/2022 End: 08-29-2023 HOLTER MONITOR 48 HOUR HOLTER MONITOR 48 HOUR ECG Routine Palpitations 1 Occurrences starting 08/28/2022 until 08/29/2023 [facility] Work Phone: Comment on above: 1 Occurrences starting 08/28/2022 until 08/29/2023 Inject si joint arthrgrphy&/anes/steroid w/bette INJECTION PROCEDURE FOR SACROILIAC Procedures Routine Sacroiliitis Ordered: 10/08/2024 [facility] Work Phone: Comment on above: Ordered: 10/08/2024 Inject si joint arthrgrphy&/anes/steroid w/bette INJECTION PROCEDURE FOR SACROILIAC Procedures Routine Sacroiliitis Ordered: 01/06/2025 [facility] Work Phone: Comment on above: Ordered: 01/06/2025 End: 07-19-2023 ARIAN SCREENING ARIAN SCREENING Radiology Routine Encounter for screening mammogram for breast cancer 1 Occurrences starting 06/19/2022 until 07/19/2023 [facility] Work Phone: Comment on above: 1 Occurrences starting 06/19/2022 until 07/19/2023 End: 08-19-2024 MG Breast Screening ARIAN SCREENING Radiology Routine Encounter for screening mammogram for breast cancer 1 Occurrences starting 07/21/2023 until 08/19/2024 [facility] Work Phone: Comment on above: 1 Occurrences starting 07/21/2023 until 08/19/2024 End: 01-02-2026 MR Cervical spine WO contrast MRI CERVICAL SPINE WO IVCON Radiology Routine Spinal stenosis of cervical region Impairment of balance 1 Occurrences starting 12/03/2024 until 01/02/2026 [facility] Work Phone: Comment on above: 1 Occurrences starting 12/03/2024 until 01/02/2026 End: 09-09-2025 MR Lumbar spine WO and W contrast IV MRI LUMBAR SPINE WO/W IVCON Radiology Routine Radiculopathy of lumbar region 1 Occurrences starting 08/10/2024 until 09/09/2025 [facility] Comment on above: 1 Occurrences starting 08/10/2024 until 09/09/2025 End: 02-27-2026 MR Thoracic spine WO contrast MRI THORACIC SPINE WO IVCON Radiology Routine Gait abnormality 1 Occurrences starting 01/28/2025 until 02/27/2026 [facility] Work Phone: Comment on above: 1 Occurrences starting 01/28/2025 until 02/27/2026 Njx anes&/strd w/img tfrml edrl lmbr/sac 1 lvl INJ TRANSFORAMINAL EPID ANES/STER LS SINGL Procedures Routine Radiculopathy, lumbar region Lumbar radiculopathy Ordered: 09/23/2024 [facility] Work Phone: Comment on above: Ordered: 09/23/2024 End: 01-04-2024 NM CARDIAC PERF STRESS/EXERCISE NM CARDIAC PERF STRESS/EXERCISE Radiology Routine VELÁZQUEZ (dyspnea on exertion) PVC (premature ventricular contraction) 1 Occurrences starting 12/05/2022 until 01/04/2024 [facility] Work Phone: Comment on above: 1 Occurrences starting 12/05/2022 until 01/04/2024 Ova and parasites identified in Unspecified specimen by Light microscopy OVA + PARA MICROSCOPIC Microbiology Routine Chronic diarrhea Ordered: 08/28/2022 [facility] Work Phone: Comment on above: Ordered: 08/28/2022 End: 09-29-2023 US ABD RIGHT UPPER QUADRANT US ABD RIGHT UPPER QUADRANT Radiology Routine Elevated liver enzymes 1 Occurrences starting 08/30/2022 until 09/29/2023 [facility] Work Phone: Comment on above: 1 Occurrences starting 08/30/2022 until 09/29/2023 End: 08-12-2025 US Abdomen RUQ US ABD RIGHT UPPER QUADRANT Radiology Routine Abnormal liver enzymes 1 Occurrences starting 07/13/2024 until 08/12/2025 [facility] Work Phone: Comment on above: 1 Occurrences starting 07/13/2024 until 08/12/2025 End: 02-05-2026 XR Cervical spine 2 or 3 views and (Views W flexion and W extension) XR CERVICAL 2V FLEX/EXT Radiology Routine Degenerative disc disease, cervical Spinal stenosis of cervical region Impairment of balance 1 Occurrences starting 01/06/2025 until 02/05/2026 [facility] Comment on above: 1 Occurrences starting 01/06/2025 until 02/05/2026 XR Cervical spine 2 or 3 views and (Views W flexion and W extension) XR CERVICAL 2V FLEX/EXT Radiology Routine Degenerative disc disease, cervical Spinal stenosis of cervical region Impairment of balance 01/12/2025 1:55 PM EDT [facility] Work Phone: End: 01-02-2026 XR Cervical spine AP and Lateral and oblique XR CERV OTHER 4V AP/LAT/OBL Radiology Routine Spinal stenosis of cervical region Degenerative disc disease, cervical Impairment of balance 1 Occurrences starting 12/03/2024 until 01/02/2026 [facility] Comment on above: 1 Occurrences starting 12/03/2024 until 01/02/2026 XR Cervical spine AP and Lateral and oblique XR CERV OTHER 4V AP/LAT/OBL Radiology Routine Spinal stenosis of cervical region Degenerative disc disease, cervical Impairment of balance 12/13/2024 11:43 AM EDT [facility] Work Phone: XR Chest PA and Lateral XR CHEST 2V FRONTAL/LAT Radiology Routine Lumbar radiculopathy 11/07/2023 4:19 PM EDT [facility] Work Phone: End: 07-21-2025 XR Esophagus Views W contrast PO XR ESOPHAGRAM Radiology Routine Esophageal dysphagia 1 Occurrences starting 06/21/2024 until 07/21/2025 [facility] Comment on above: 1 Occurrences starting 06/21/2024 until 07/21/2025 End: 12-25-2024 XR Lumbar spine AP and Lateral XR LUMBAR LIMITED 2V AP/LAT Radiology Routine S/P lumbar fusion 1 Occurrences starting 11/26/2023 until 12/25/2024 [facility] Work Phone: Comment on above: 1 Occurrences starting 11/26/2023 until 12/25/2024 XR Lumbar spine AP a nd Lateral XR LUMBAR LIMITED 2V AP/LAT Radiology Routine S/P lumbar fusion 12/04/2023 4:54 PM EDT [facility] Work Phone: XR Lumbar spine AP a nd Lateral XR LUMBAR LIMITED 2V AP/LAT Radiology Routine S/P lumbar fusion 01/05/2024 12:48 PM EDT [facility] Work Phone: End: 01-21-2025 XR Lumbar spine AP and Lateral [facility] Work Phone: Comment on above: 1 Occurrences starting 12/23/2023 until 01/21/2025 1 Occurrences starti ng 01/06/2024 until 01/21/2025 End: 03-17-2025 XR Lumbar spine AP and Lateral XR LUMBAR LIMITED 2V AP/LAT Radiology Routine S/P lumbar fusion 1 Occurrences starting 02/17/2024 until 03/17/2025 [facility] Work Phone: Comment on above: 1 Occurrences starting 02/17/2024 until 03/17/2025 XR Lumbar spine AP a nd Lateral XR LUMBAR LIMITED 2V AP/LAT Radiology Routine S/P lumbar fusion 02/16/2024 3:49 PM EDT [facility] Work Phone: XR Lumbar spine AP a nd Lateral XR LUMBAR LIMITED 2V AP/LAT Radiology Routine S/P lumbar fusion 05/11/2024 1:26 PM EST [facility] Work Phone: End: 08-25-2025 XR Lumbar spine AP and Lateral XR LUMBAR LIMITED 2V AP/LAT Radiology Routine S/P lumbar fusion 1 Occurrences starting 07/26/2024 until 08/25/2025 [facility] Work Phone: Comment on above: 1 Occurrences starting 07/26/2024 until 08/25/2025 XR Lumbar spine AP a nd Lateral XR LUMBAR LIMITED 2V AP/LAT Radiology Routine S/P lumbar fusion 08/10/2024 1:09 PM EDT [facility] End: 08-28-2024 XR Lumbar spine Views W flexion and W extension XR LUMBAR MOTION 4V AP/LAT/ FLEX/EXT Radiology Routine 1 Occurrences starting 07/30/2023 until 08/28/2024 [facility] Work Phone: Comment on above: 1 Occurrences starting 07/30/2023 until 08/28/2024 XR Lumbar spine View s W flexion and W extension XR LUMBAR MOTION 4V AP/LAT/ FLEX/EXT Radiology Routine 08/01/2023 10:05 AM EST [facility] Work Phone: [facility] Payers Date Payer Category Payer Self-pay 2021 Medicare (Managed Care) [employer] [id number] 2021 Medicare [id number] 2020 Medicaid MEDICAID [facility] MEDICAID [id number] 2020-Present [phone] [address] [place] [address] Medicaid [id number] 2020 Medicaid [id number] 2017 Medicare MEDICARE MEDICAR E A AND B [id number] 2017-Present [phone] [place] [address] Medicare [id number] 2017 Medicare [id number] 1959 Medicaid [id number] 1959 Medicare [id number] 1952 Unknown [id number] Unknown [id number] Social History Date Type Detail Facility Start: 07-19-2019 End: 02-13-2023 Tobacco smoking status NEIS Never smoked tobacco [facility] Start: 07-19-2019 End: 02-13-2023 Tobacco use and exposure Smokeless tobacco non-user [facility] Start: 07-11-2021 End: 10-31-2022 Alcohol intake Current non-drinker of alcohol (finding) [facility] Start: 1950 Sex Assigned At Not on file C [facility] Start: 12-05-2022 End: 05-11-2024 History of Social function [facility] Start: 12-05-2022 End: 05-11-2024 Tobacco use panel [facility] Start: 04-26-2012 National Score (1-100), lower number is lower risk 79 [facility] Start: 11-07-2023 End: 02-04-2025 Alcohol intake Current drinker of alcohol (finding) [facility] Start: 11-06-2023 Alcohol Comment rare occassion [facility] Has the [employer], or water [employer] threatened to shut off services in your home in past 12Mo No [facility] Work Phone: (I/We) worried shiv garcia (my/our) food would run out before (I/we) got money to buy more. Never true [facility] Start: 06-21-2024 End: 01-06-2025 Alcoholic beverage intake Ex-drinker (finding) [facility] How often to you hav e a drink containing alcohol? Monthly or less [facility] How many standard drinks containing alcohol do you have on a typical day? 1 or 2 [facility] How often do you hav e 6 or more drinks on 1 occasion? Never [facility] Start: 1950 Sex assigned at Female C [facility] Start: 02-07-2025 Gender identity Identifies as female gender (finding) [facility] Start: 02-07-2025 Sexual orientation Heterosexual (louis brewster) [facility] NEGATED: Highlighted rowStart: JESÚS History of tobacco use Passive smoker [facility] Medical Equipment Procedure Code Equipment Code Equipment Origin al Text Equipment Identifier Dates Lapiplasty 4.0mm Headless Screws [id number] Start: 02-14-2023 Lapiplasty Speed plate Rapid Compression Implants [id number] Start: 02-14-2023 Ksl-[id number] Im plant - [id number] Start: 02-14-2023 Lapiplasty Speed plate Rapid Compression Implants [id number] Start: 02-14-2023 Graft Bone Sub D bm Putty Osteosurge - [id number] Start: 11-20-2023 Chips Bone Graft Cancellous Bone 4-10 Mm Container 15 Cc Volume - [id number] Start: 11-20-2023 Graft Bone Sub D bm Putty Osteosurge - [id number] Start: 11-20-2023 Creo Thread 6.5 X 4cm Polyaxial Screw [id number] Start: 11-20-2023 Creo Thread 6.5 X 45mm Polyaxial Screw [id number] Start: 11-20-2023 5.5mm Curved Hung Ti Alloy 4cm [id number] Start: 11-20-2023 Thread Locking C ap Creo [id number] Start: 11-20-2023 Functional Status Date Assessment Result Facility 01-10-2025 Total score [AUDIT-C] 1 01/11/20 8:00 PM Liz Uribe [facility] 01-10-2025 How often to you hav e a drink containing alcohol? Monthly or less 01/10/2025 8:00 PM Liz Uribe Monthly or less [facility] 01-10-[address] inks containing alcohol do you have on a typical day? 1 or 2 01/10/2025 8:00 PM Liz Uribe 1 or 2 [facility] 01-10-2025 How often do you hav e 6 or more drinks on 1 occasion? Never 01/10/2025 8:00 PM Liz Uribe Never [facility] 11-23-2023 Are you deaf, or do you have serious difficulty hearing No 11/23/2023 10:41 AM Meng Merchant RN No [facility] 11-23-2023 Are you blind, or do you have serious difficulty seeing, even when wearing glasses No 11/23/2023 10:41 AM Meng Merchant RN No [facility] 11-23-2023 Do you have serious difficulty walking or climbing stairs No 11/23/2023 10:41 AM Meng Merchant RN No [facility] 11-23-2023 Do you have difficul ty dressing or bathing No 11/23/2023 10:41 AM Meng Merchant RN No [facility] 11-23-2023 Because of a physica l, mental, or emotional condition, do you have difficulty doing errands alone such as visiting a physician's office or shopping Yes 11/23/2023 10:41 AM Meng Merchant RN Yes [facility] Mental Status Date Assessment Result Facility 11-23-2023 Because of a physica l, mental, or emotional condition, do you have serious difficulty concentrating, remembering, or making decisions No 11/23/2023 10:41 AM Meng Merchant RN No [facility] Clinical Notes 11-06-2021 to 03-31-2025 Sj Mcneil, RT(R) - 02/08/2025 3:30 PM Willam Mckeon DC - 02/04/2025 12:48 PM Stephen Choi DO - 01/28/2025 12:45 PM EDTPatient InstructionsPatient Instructions Note Date & Type Note Facility 03-31-2025 Note HNO ID: [id number] Author: WILLAM MCHUGH DC Service: ? Author Type: Chiropractor Type: Progress Notes Filed: 03/31/2025 13:50 Note Text: Chiropractor Progress/Procedure Note Brent Mosqueda is a 74 year old female who presents for Chiropractic follow up for Low Back Pain [facility] 12/22 ACU Have you noticed any improvement since your last visit? Has had continuous reduction of symptoms since the previous visit. Patient is currently having no pain today. Have you done any home exercises that Dr. Mchugh gave you? None given per insurance coverage What is your response to the home exercises? N/A What aggravates your pain? 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 0/10 How low has your pain level been on the pain scale since your last visit? 0/10 How high has your pain level been on the pain scale since your last visit? 6/10. Since your last visit with Dr. Mchugh have you had any Images or injections? None REVIEW OF SYSTEMS: The patient reports weakness in both legs. PHYSICAL EXAM: The patient is alert and oriented in no acute distress. There is moderate hypertonicity through the lumbar paraspinal muscles. Range of motion: improved Pain on extension and rotation. Motor Strength: reduced Neurovascular intact. Orthopedic testing: NA. Spinal segmental dysfunction: na The patient is alert and oriented in no acute distress. I have confirmed and edited as necessary the HPI and ROS obtained by others. IMPRESSION AND PLAN: (M54.50, G89.29) Chronic bilateral low back pain without sciatica (primary encounter diagnosis) No orders found for this visit on 03/31/25. Treatments: SEATED Acupuncture: 38 minutes, lumbar spine, needles re-inserted every 15 minutes. Time in: 11:34 Time out: 12:34 Plan/Goal: Continue care until goal of standing/walking with less pain, less severe pain overall, and less pain in daily activity. Home Exercise Program has not been given. Return: 2 times, month Patient responded well, instructed to call with problems or concerns, responded well to all treatments. I personally performed treatments/procedures listed. Dr. Willam Mchugh, TERI [facility] 03-28-2025 Note HNO ID: [id number] Author: LISA VEGA MD Service: ? Author Type: Physician Type: Progress Notes Filed: 03/28/2025 13:56 Note Text: UNIVERSAL PROTOCOL / SAFETY CHECKLIST Procedure to be Performed: EMG Sign In: A Moment of CARE was completed. Personnel directly involved with the procedure wore the appropriate PPE (Personal Protective Equipment). Patient/Surrogate Stated/Verified: Patient name, Date of , Relevant allergies, and The intended procedure Time Out Communication: Intended patient and procedure match the source documents. Correct side/site marked and visible. Sign Out: SIGN OUT (optional for EMERGENT procedures): Post-procedure follow-up management communicated and Plan of Care Visit completed when applicable. Rafael Vega MD [facility] 03-17-2025 Note HNO ID: [id number] Author: MAGNOLIA BANKS PT Service: ? Author Type: Physical Therapist Type: Progress Notes Filed: 03/17/2025 16:41 Note Text: Episode Visit Count: 2 Therapist That Will Accept/Oversee The Plan Of Care: Surya Banks Start of Care Date: 03/10/25 Onset Date: 03/10/24 Plan of Care Certification Date: 03/10/25 Next Certification Due Date: 06/08/25 Patient Identified by Name and Date of : Yes REHABILITATION AND SPORTS THERAPY PHYSICAL THERAPY TREATMENT NOTE ASSESSMENT: Brent Mosqueda tolerated the session with general imbalance. She demonstrated difficulty with balance static and dynamic in standing. Patient noted with LLD which may be impacting her balance as she stands on left lower extremity with right lower extremity flexed. Imbalance/dizziness symptoms appear cervicagenic but will continue to monitor for BPPV. The patient will continue to benefit from ongoing skilled physical therapy to progress toward set goals. PLAN FOR NEXT VISIT: monitor for BPPV as needed. Address cervical STR and strength deficits, address static and dynamic balance. Assess reponse to heel lift SUBJECTIVE: was able complete short arm virbration. No change in symptoms Pain: Pain Pain Level: 0 Post Treatment Pain Post Treatment Pain Level: No Change OBJECTIVE MEASURES WITH LEVEL OF FUNCTION: Posture / Alignment Posture: Hip asymmetry (LLD noted, stands with R LE flexed, apparent > 1/4 inch LLD with L LE shortened vs R) Positional Testing Right Ear Down: Left beat, Asymptomatic Left Ear Down: Right beat, Asymptomatic [place] Test: Left beat Lean Test: Right beat Positional Test Comments: mild inconsistent nystagmus more likely due to other causes vs true HC BPPV Neurological Screen Finger to Nose: Normal Rapid Alternating Movement: Normal Spine Joint Mobility Upper Cervical Rotation : Bilateral restriction Upper Cervical Flexion: Bilateral restriction UE and Cervical Strength Strength Tested: Cervical Cervical Strength: fair+ Deep Neck Flexor Endurance: 8 sec LE Strength Trunk Strength: fair+ Special Tests - Cervical Vertebral Artery Test: Negative Special Tests Spine and Hip Vertebral Artery Test: Negative Functional Gait Assessment Gait level surface : 3 - Normal- walks 20' no assist device, good speed, no imbalance, normal gait pattern Change in gait speed: 3 - Normal- albe to smoothly change walking speed without loss of balance or gait deivations. Shows significant difference in walking speeds Gait and horizontal head turns: 0 - Severe impairment- performs task with severe disruption of gait, staggers outside 15 path, loses balance, stops, reaches for wall Gait and vertical head turns: 1 - Moderate impairment- performs R/L head turns with moderate change in gait velocity, slows down, staggers but recovers, can continue to walk Gait and pivot: 2 - Mild impairment- pivot turns safely in >3 sec, stops, no loss of balance Step over obstacle: 2 - Mild impairment- is able to step over box, but must slow down and adjust steps to clear box Gait with narrow base of support : 0 - Severe impairment- ambulates less than 4 steps heel to toe or cannot perform without assistance Gait with eyes closed : 1 - Moderate impairment- walks 20', slow speed, abnormal gait pattern, evidence for imbalance, deviates 10-15 outside 12 [address], requires more than 9 sec to ambulate 20 Ambulates backward : 3 - Normal- walks 20' no assist device, good speed, no imbalance, normal gait pattern, deviates no more than 6 outside 12 walk[address] Steps: 2 - Mild impairment- alternating feet, must use rail Functional Gait Assessment Total : 17 TREATMENT: Manual Therapy: 1: supine sub occ release 2: supine B UT release 3: cervical assessmnet per objective measures Skilled Intervention: Manual skills to improve joint mobility, ROM, and decrease pain. Utilized anatomy knowledge of the clinician, and assessment of patient's response to intervention. Therapeutic Activity: 1: fit with heel lift to L shoe due to noted LLD on L, explained impact on standing posture and balance. Skilled Intervention: Education need for heel lift and benfit of symmentrical leg length for improved balance. Neuromuscular Re-Education: 1: *supine head deweights 10 sec 5x 2 2: *modified tandem 30 sec 3: BPPV testing per objective measures 4: balance testing per objective measures Skilled Intervention: Skilled judgment used to assess appropriate program for balance and coordination activity. Ensured patient safety with use of stand by assist to contact guard assist with balance testing. Reviewed and educated patient on additions/changes for home program as noted above with an (*). Provided written instruction for home program to facilitate proper performance and compliance. Correct performance of home program was facilitated with verbal, visual, and tactile cuein (more content not included)... [facility] 03-11-2025 Note HNO ID: [id number] Author: WILLAM MCHUGH DC Service: ? Author Type: Chiropractor Type: Progress Notes Filed: 03/11/2025 14:02 Note Text: Chiropractor Progress/Procedure Note Brent Mosqueda is a 74 year old female who presents for Chiropractic follow up for Low Back Pain [facility] 11/22 acu Have you noticed any improvement since your last visit? Less pain for 1-2 days Have you done any home exercises that Dr. Mchugh gave you? None given What is your response to the home exercises? N/A What aggravates your pain? Non-specific ADLs What makes your pain better? Chiro care Current pain level? 2/10 How low has your pain level been on the pain scale since your last visit? 0/10 How high has your pain level been on the pain scale since your last visit? 10/02. Since your last visit with Dr. Mchugh have you had any Images or injections? No REVIEW OF SYSTEMS: The patient reports numbness or tingling. PHYSICAL EXAM: The patient is alert and oriented in no acute distress. There is moderate hypertonicity through the lumbar paraspinal muscles and gluteal muscles. Range of motion: improved Pain on extension, side bend, and rotation. Motor Strength: normal Neurovascular intact. Orthopedic testing: NA. Spinal segmental dysfunction: N/A. The patient is alert and oriented in no acute distress. I have confirmed and edited as necessary the HPI and ROS obtained by others. IMPRESSION AND PLAN: (M54.50, G89.29) Chronic bilateral low back pain without sciatica (primary encounter diagnosis) No orders found for this visit on 03/11/25. Treatments: Acupuncture: 38 minutes, lumbar spine, needles re-inserted every 15 minutes. MASSAGE CHAIR Time in: 12:01 Time out: 12:40 Plan/Goal: Continue care until goal of standing/walking with less pain, less severe pain overall, and less pain in daily activity. Return: 2 times, month Patient responded well, instructed to call with problems or concerns, responded well to all treatments. I personally performed treatments/procedures listed. Dr. Willam Mchugh, TERI [facility] 03-11-2025 Note HNO ID: [id number] Author: PORTIA CALHOUN, DO Service: ? Author Type: Physician Type: Progress Notes Filed: 03/13/2025 19:22 Note Text: Subjective The patient is a 74-year-old female with depression, presenting for follow-up and evaluation of citalopram efficacy and side effects. Brent Mosqueda is a 74-year-old female with a history of depression, presenting for follow-up. Depression: - Follow-up visit, last seen 6 weeks ago. - Started on citalopram 40 mg at last visit; reports some improvement in mood. - Experiences brain zaps occasionally, believes they are related to serotonin level fluctuations. - Denies missing doses of medication. - Lives with a narcissist who is very controlling; recent conflicts over personal finances. - Expresses desire to continue current medication for a longer period to assess effectiveness. Weight Loss: - Intentional weight loss from 188 lbs to 135 lbs over 8 months. - Practices intermittent fasting, eating only between 12:00 and 20:00. 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 Rizo REMOVAL GALLBLADDER FAMILY HISTORY Problem Relation Age of Onset other (multiple myeloma) Mother COPD Father No Known Problems Sister No Known Problems Brother No Known Problems Brother Colon Cancer No Family History SOCIAL HISTORY[1] Current Outpatient Medications Medication Sig hydrOXYzine HCl (ATARAX) 25 mg tablet TAKE ONE TABLET BY MOUTH THREE TIMES A DAY NEEDED citalopram (CELEXA) 20 mg tablet Take 1 tablet by mouth once daily for 14 days, THEN 2 tablets once daily. metoprolol succinate ER (TOPROL XL) 25 mg 24 hr tablet TAKE ONE TABLET BY MOUTH EVERY AFTERNOON ALIGN, B.LONGUM, 10 million cell cap TAKE ONE CAPSULE BY MOUTH EVERY DAY amoxicillin (AMOXIL) 500 mg capsule Chlorhexidine Gluconate (PERIDEX) 0.12 % solution ibuprofen (MOTRIN) 600 mg tablet pregabalin (LYRICA) 75 mg capsule Take 75 mg by mouth two times a day. Bifidobacterium Infantis (ALIGN, B.INFANTIS,) 4 mg cap Take 1 capsule by mouth once daily. vit C/E/Zn/coppr/lutein/zeaxan (PRESERVISION AREDS-2 ORAL) Take 1 tablet by mouth twice daily. citalopram (CELEXA) 40 mg tablet Take 1 tablet by mouth once daily. No current facility-administered medications for this visit. Objective BP 130/60 (BP Site: Right Arm, BP Position: Sitting) Pulse 60 Ht 5' 2 (1.575 m) Wt 135 lb (61.2 kg) SpO2 98% BMI 24.69 kg/m? Physical Exam GENERAL: NAD, alert and oriented SKIN: unremarkable, no rash or skin lesions. HEAD: normocephalic EYES: PERRLA, EOMI, conjunctiva clear EARS: external ears normal, canals clear, TM's normal. NOSE/SINUSES: Nares normal. Septum midline. OROPHARYNX: lips, mucosa, and tongue normal, good dentition. No oral lesions noted. NECK: Supple, no lymphadenopathy, normal thyroid, no carotid bruits. LUNGS: Clear to auscultation bilaterally, no wheezes/rhonchi/rales. HEART: Regular rate and rhythm, no murmurs. No ectopy. EXTREMITIES: Normal, No deformities, No skin discoloration, No edema. NEURO: Awake, alert and oriented x3, cranial nerves II-XII grossly intact, normal gait, no involuntary motions Assessment AND Plan 1. Anxiety with depression (F41.8) - On citalopram 40 mg daily; reports some improvement in mood but continues to experience intermittent brain zaps. - Discussed option to change medication; patient prefers to continue current regimen and reassess at a later date. 2. Lumbar radiculopathy (M54.16) 3. Encounter for screening mammogram for malignant neoplasm of breast (Z12.31) - Mammogram performed yesterday. Portia Calhoun DO Return in about 6 months (around 09/06/2025). Recording using [employer] software for draft documentation of the visit was discussed with the patient/authorized physician representative; all questions welcomed and answered. Patient/authorized physician representative agreed to proceed [1] Social History Tobacco Use Smoking status: Never Passive exposure: Never Smokeless tobacco: Never Vaping Use Vaping status: Never Used Substance Use Topics Alcohol use: Yes Alcohol/week: 0.0 - 1.0 standard drinks of alcohol Comment: rare occassion Drug use (more content not included)... [facility] 03-10-2025 Note HNO ID: [id number] Author: MAGNOLIA BANKS PT Service: ? Author Type: Physical Therapist Type: Progress Notes Filed: 03/10/2025 18:07 Note Text: Summary: PT eval Episode Visit Count: 1 Therapist That Will Accept/Oversee The Plan Of Care: Surya Banks Start of Care Date: 03/10/25 Onset Date: 03/10/24 Plan of Care Certification Date: 03/10/25 Next Certification Due Date: 06/08/25 Patient Identified by Name and Date of : Yes REHABILITATION AND SPORTS THERAPY PHYSICAL THERAPY EVALUATION PLAN OF CARE: Assessment: Brent Mosqueda presents with chief complaint of imbalance that interferes with walking, stair negotiation . The patient presents with impairments in balance, overall function, posture, strength, and tissue tenderness. PROMIS? (Patient-Reported Outcomes Measurement Information System) scores were reviewed and identified as within normal limits. Prognosis for therapy is Good due to: current objective clinical presentation . Patient with balance deficits and possible left HC BPPV, cupulolithiasis. Demonstrates vestibular dysfunction with loss of balance with CTSIB testing, cervical spine also to be assessed. The patient will benefit from skilled therapy services to meet the goals established for this plan of care as noted below. Goals for Episode of Care: established 03/10/25 Patient will be able to correct postural deviations independently in order to allow for normal mechanics, to decrease current pain and prevent future recurrence. Patient will perform Romberg stance on firm surface with eyes closed for 30 seconds without LOB. Patient will improve FGA to WNL - no fall risk - in order to perform functional tasks with improved stability. Baseline to be determined next session. Patient will have negative positional testing for BPPV. Patient/family member will be independent in performing self PRT. Patient will verbalize the understanding of the diagnosis BPPV, how to recognize symptoms and what to do if they return. Patient will demonstrate normal active cervical spine range of motion to restore posture and complete ADLS with trace report of dizziness/imbalance. Patient will be independent with home exercise program and progression. Patient will return to prior level of function with all activities of daily living with trace reports of dizziness. Patient will demonstrate the ability to complete VOR in static and dynamic positions with trace report of dizziness. Patient Goals: to not be so wbbly and drunklike. Time Frame for Goals and Treatment : 06/08/25 Planned Interventions, Frequency, and Duration: Current Frequency: 1x/week Duration: 12 weeks Total Number of Visits Planned: 8 Planned Treatment Interventions: Therapeutic exercise (37474), Neuromuscular re-education (43246), Manual therapy (39077), Therapeutic activities (40040), Canalith Repositioning Maneuvers (00215) PLAN FOR NEXT VISIT: retest for HC BPPV and treat with appropriate CRM, assess c-spine and complete FGA Patient demonstrates good understanding of plan of care and treatment. The above goals and plan of care were discussed and agreed upon by patient/family. SUBJECTIVE: imbalance and frequent falls reported with some dizziness Patient Goals: to not be so wbbly and drunklike. Functional Limitations: walking, stair negotiation Prior Level of Function: Independent without limitations Relevant History Past Relevant Medical Conditions: Fibromyalgia, Arthritis Past Relevant Surgical Conditions: Spine fusion - Lumbar (lumbar fusion L4/5 2023, L ankle fused years ago.) Intake Information: Prescription present Previous Treatment: Physical Therapy (no vestibular PT) Falls Interview: Two or more falls in the last year (reports ~ 1-2x per month) Falls Intervention: More thorough falls assessment to be performed Concussion History of Concussion: No Vestibular Symptoms present for: years Symptom onset: gradual Dizziness: Yes Description: woozy, light headed Frequency: Intermittent Duration: seconds Symptoms worsened by: bending (standing up) Symptoms improved by: being still Imbalance: Yes Imbalance triggered by: Unstable surface (open hallway at home, veers R sometimes L) Fall Assessment: History of falls Frequency of falls: Monthly When was your most recent fall?: few weeks ago Did the fall occur inside or outside?: inside How did the fall occur?: in the basement, going through items in basement Injuries resulting from fall? : no Dizziness during fall?: unsure How often do you lose your balance?: frequently Nausea: no Motion Sickness: None Headache: No Neck Symptoms: Yes Description: aching Location: posterior neck Location comment: tight muscles, MRI, C5-6 spondylosis, Symptoms wo (more content not included)... [facility] 03-07-2025 Note HNO ID: [id number] Author: JORDAN WARREN Mammo Tech Service: ? Author Type: Jeeper Operator Type: Progress Notes Filed: 03/07/2025 15:22 Note Text: Radiology Service Progress Note PATIENT NAME: Brent Mosqueda DATE OF SERVICE: March 07, 2025 TIME: 3:22 PM PATIENT IDENTITY VERIFICATION COMPLETED USING TWO (2) IDENTIFIERS: Name and Date of confirmed by patient verbally. FALL SCREENING: Has the patient had 2 falls in the last year or 1 fall with injury or currently using an Ambulatory Assistive Device (Walker, Cane, Wheelchair, Crutches, etc.)? No PATIENT GENDER DATA: Assigned female at . status: : No status: NO. PATIENT RELEVANT IMPLANT DATA REVIEWED: Not Applicable PATIENT PRESENTS WITH AN IMPLANTABLE OR ATTACHED NIGHT FILLER: No RADIOLOGY DEPARTMENT: Mammography PERIPHERAL IV DATA: Not applicable SIGNED BY: Natacha Resendiz March 07, 2025 3:22 PM [facility] 03-03-2025 Note HNO ID: [id number] Author: PÉREZ LING, PT Service: ? Author Type: Physical Therapist Type: Progress Notes Filed: 03/03/2025 08:52 Note Text: 03/03/2025 [facility] PHYSICAL THERAPY DISCONTINUANCE OF CARE Plan of Care Period: Start of Care Date: 06/04/24 Last Visit Date: 06/29/2024 Therapy Program: The following is a summary of the interventions provided for this episode of care; Therapeutic exercise and Manual therapy Assessment: Based on most recent visit, patient was progressing as expected toward functional goals based on home exercise program compliance, pain levels, and documented subjective information on progress. Unable to formally assess goal achievement, as patient has not returned to therapy or scheduled additional follow-up appointments. Reason for Discontinuation of Care: Patient has not returned to therapy or scheduled additional follow-up appointments. Pérez Ling PT [facility] 02-22-2025 Note HNO ID: [id number] Author: CAITLIN SANTIAGO MD Service: ? Author Type: Physician Type: Progress Notes Filed: 02/22/2025 17:13 Note Text: 02/16/2025 Sleep Apnea Probability Snores loudly: No Tired, fatigued or sleepy in daytime: Yes Stops breathing or choking/gasping during sleep: No High blood pressure: No Sleep Apnea Probability Score: 28 (Sleep study not recommended) [facility] [place] February 22, 2025 Consultation My final recommendations will be communicated back to the requesting physician by way of shared medical record or letter via US mail. Referring physician:Stephen Aguila [address] [facility] [address] Patient presents with: Consult: Abnormality of gait Accompanied by Self. Referred by [facility] [address] [facility] [id number]. HISTORY AND PHYSICAL Brent is a 74-year-old gmkwq-zodq-zoczbpsd female with a history of cervical and lumbar spine surgery, chronic back and neck pain, and right ankle arthrodesis, presenting for evaluation of chronic imbalance and falls. Brent reports a history of chronic imbalance and unsteady gait for well over a year. She describes difficulty walking in a straight line and frequently needing to push herself off dahl when walking down hallways. She characterizes her gait as walking like a drunk. She also reports intermittent dizziness, which she describes as a swinging sensation rather than true vertigo. The dizziness is not constant and is not associated with any hearing problems, tinnitus, or ear pain. She does not experience dizziness when lying in bed or turning over. She reports frequent falls, sometimes due to imbalance and sometimes due to mechanical factors such as tripping over objects or being knocked over by her dog. The most recent fall due to imbalance occurred a couple of weeks ago. She reports difficulty getting up after falls, though she notes that she is now able to get up off the ground more easily than before. She expresses fear of falling in public and describes her symptoms as very unsettling. She reports that her leg strength is improving, but her walking continues to worsen. Her medical history is significant for chronic back and neck pain, as well as right ankle arthrodesis performed in 2001 following a compound fracture from a horse-riding accident. She also reports numbness in her left foot following surgery approximately 2 years ago. She has a history of hypertension and is currently taking metoprolol 25 mg daily at noon. She previously took Lipitor but discontinued it due to side effects. She also takes Lyrica, which she currently takes in the morning. She has not undergone any nerve testing on her legs and has not participated in vestibular therapy. She has completed physical therapy a couple of times, most recently after her left foot surgery, but has not participated in therapy specifically for balance. She does not use any assistive devices for walking, such as a cane or walker, though she has considered using a walking stick. She reports drinking Pepsi Zero regularly and does not drink much water. She denies any personal or family history of diabetes or neurological disorders. 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 194 tablet 0 metoprolol succinate ER (TOPROL XL) 25 mg 24 hr tablet TAKE ONE TABLET BY MOUTH EVERY AFTERNOON 90 tablet 1 ibuprofen (MOTRIN) 600 mg tablet pregabalin (LYRICA) 75 mg capsule Take 75 mg by mouth two times a day. vit C/E/Zn/coppr/lutein/zeaxan (PRESERVISION AREDS-2 ORAL) Take 1 tablet by mouth twice daily. ALIGN, B.LONGUM, 10 million cell cap TAKE ONE CAPSULE BY MOUTH EVERY DAY (Patient not taking: Reported on 01/28/2025) 42 capsule 1 amoxicillin (AMOXIL) 500 mg capsule (Patient not taking: Reported on 01/28/2025) Chlorhexidine Gluconate (PERIDEX) 0.12 % solution (Patient not taking: Reported on 02/22/2025) atorvastatin (LIPITOR) 20 mg tablet Take 1 tablet by mouth once daily. 90 tablet 3 Bifidobacterium Infantis (ALIGN, B.INFANTIS,) 4 mg cap Take 1 capsule by mouth once daily. (Patient not taking: Reported on 02/22/2025) 42 capsule 1 ascorbic acid, vitamin C, (VITAMIN C) 500 mg tablet Take 1 tablet by mouth once daily. 30 tablet 0 No current facility-administered medicat (more content not included)... [facility] 02-18-2025 Note HNO ID: [id number] Author: WILLAM MCHUGH DC Service: ? Author Type: Chiropractor Type: Progress Notes Filed: 02/18/2025 13:54 Note Text: Chiropractor Progress/Procedure Note Brent Mosqueda is a 74 year old female who presents for Chiropractic follow up for Low Back Pain VN 10/22 ACU Have you noticed any improvement since your last visit? Yes patient states she has had little to no pain at all following visit. Have you done any home exercises that Dr. Mchugh gave you? No What is your response to the home exercises? N/A What aggravates your pain? ADL's What makes your pain better? Chiro care Current pain level? 2/10 How low has your pain level been on the pain scale since your last visit? 0/10 How high has your pain level been on the pain scale since your last visit? 7/10. Since your last visit with Dr. Mchugh have you had any Images or injections? MRI on 02/08 REVIEW OF SYSTEMS: The patient reports numbness or tingling. PHYSICAL EXAM: The patient is alert and oriented in no acute distress. There is mild to moderate hypertonicity through the lumbar paraspinal muscles and gluteal muscles. Range of motion: improved Pain on flexion and extension. Motor Strength: normal Neurovascular intact. Orthopedic testing: NA. Spinal segmental dysfunction: na The patient is alert and oriented in no acute distress. I have confirmed and edited as necessary the HPI and ROS obtained by others. IMPRESSION AND PLAN: (M54.50, G89.29) Chronic bilateral low back pain without sciatica (primary encounter diagnosis) No orders found for this visit on 02/18/25. Treatments: Acupuncture: 38 minutes, lumbar spine, needles re-inserted every 15 minutes. MASSAGE CHAIR Time in: 12:47 Time out: 1:25 Plan/Goal: Continue care until goal of less severe pain overall. Return: 2 times, month Patient responded well, instructed to call with problems or concerns, responded well to all treatments. I personally performed treatments/procedures listed. Dr. Willam Mchugh, [facility] 02-08-2025 History of Presen t illness Narrative Radiology Service Progress Note PATIENT NAME: Brent Mosqueda DATE OF SERVICE: February 08, 2025 TIME: 3:38 PM PATIENT IDENTITY VERIFICATION COMPLETED USING TWO (2) IDENTIFIERS: Name and Date of confirmed by patient verbally. FALL SCREENING: Has the patient had 2 falls in the last year or 1 fall with injury or currently using an Ambulatory Assistive Device (Walker, Cane, Wheelchair, Crutches, etc.)? No PATIENT GENDER DATA: Assigned female at . status: : No status: NO. PATIENT RELEVANT IMPLANT DATA REVIEWED: Yes PATIENT PRESENTS WITH AN IMPLANTABLE OR ATTACHED NIGHT FILLER: No RADIOLOGY DEPARTMENT: MR; Exam(s) Completed: Spine: Thoracic spine. Anesthesia: No. Aromatherapy Administered: No PERIPHERAL IV DATA: Not applicable SIGNED BY: RT Kaycee(R) February 08, 2025 3:38 PM documented in this encounter [facility] 02-08-2025 Note HNO ID: [id number] Author: SJ MCNEIL RT(Heriberto) Service: ? Author Type: Technologist Type: Progress Notes Filed: 02/08/2025 15:39 Note Text: Radiology Service Progress Note PATIENT NAME: Brent Mosqueda DATE OF SERVICE: February 08, 2025 TIME: 3:38 PM PATIENT IDENTITY VERIFICATION COMPLETED USING TWO (2) IDENTIFIERS: Name and Date of confirmed by patient verbally. FALL SCREENING: Has the patient had 2 falls in the last year or 1 fall with injury or currently using an Ambulatory Assistive Device (Walker, Cane, Wheelchair, Crutches, etc.)? No PATIENT GENDER DATA: Assigned female at . status: : No status: NO. PATIENT RELEVANT IMPLANT DATA REVIEWED: Yes PATIENT PRESENTS WITH AN IMPLANTABLE OR ATTACHED NIGHT FILLER: No RADIOLOGY DEPARTMENT: MR; Exam(s) Completed: Spine: Thoracic spine. Anesthesia: No. Aromatherapy Administered: No PERIPHERAL IV DATA: Not applicable SIGNED BY: Sj Mcneil, RT(R) February 08, 2025 3:38 PM [facility] 02-04-2025 History of Presen t illness Narrative Chiropractor Progress/Procedure Note Brent Mosqueda is a 74 year old female who presents for Chiropractic follow up for Low Back Pain AO 09/22 acu Have you noticed any improvement since your last visit? Less pain for 1-2 weeks Have you done any home exercises that Dr. Mchugh gave you? None given What is your response to the home exercises? N/A What aggravates your pain? Non-specific ADLs What makes your pain better? Chiro care Current pain level? 0/10 How low has your pain level been on the pain scale since your last visit? 0/10 How high has your pain level been on the pain scale since your last visit? 7/10. Since your last visit with Dr. Mchugh have you had any Images or injections? No REVIEW OF SYSTEMS: The patient reports numbness or tingling. PHYSICAL EXAM: The patient is alert and oriented in no acute distress. There is mild to moderate hypertonicity through the lumbar paraspinal muscles and gluteal muscles. Range of motion: improved Pain on flexion and extension. Motor Strength: normal Neurovascular intact. Orthopedic testing: NA. Spinal segmental dysfunction: na The patient is alert and oriented in no acute distress. I have confirmed and edited as necessary the HPI and ROS obtained by others. IMPRESSION & PLAN: (M54.50, G89.29) Chronic bilateral low back pain without sciatica (primary encounter diagnosis) No orders found for this visit on 02/04/25. Treatments: Acupuncture: 38 minutes, lumbar spine, needles re-inserted every 15 minutes. MASSAGE CHAIR Time in: 12:48 Time out: 1:30 Plan/Goal: Continue care until goal of standing/walking with less pain, less severe pain overall, and less pain in daily activity. Return: 2 times, month Patient responded well, instructed to call with problems or concerns, responded well to all treatments. I personally performed treatments/procedures listed. Dr. Willam Mchugh DC documented in this encounter [facility] 02-04-2025 Note HNO ID: [id number] Author: WILLAM MCHUGH DC Service: ? Author Type: Chiropractor Type: Progress Notes Filed: 02/04/2025 13:33 Note Text: Chiropractor Progress/Procedure Note Brent Mosqueda is a 74 year old female who presents for Chiropractic follow up for Low Back Pain AO 09/22 acu Have you noticed any improvement since your last visit? Less pain for 1-2 weeks Have you done any home exercises that Dr. Mchugh gave you? None given What is your response to the home exercises? N/A What aggravates your pain? Non-specific ADLs What makes your pain better? Chiro care Current pain level? 0/10 How low has your pain level been on the pain scale since your last visit? 0/10 How high has your pain level been on the pain scale since your last visit? 7/10. Since your last visit with Dr. Mchugh have you had any Images or injections? No REVIEW OF SYSTEMS: The patient reports numbness or tingling. PHYSICAL EXAM: The patient is alert and oriented in no acute distress. There is mild to moderate hypertonicity through the lumbar paraspinal muscles and gluteal muscles. Range of motion: improved Pain on flexion and extension. Motor Strength: normal Neurovascular intact. Orthopedic testing: NA. Spinal segmental dysfunction: na The patient is alert and oriented in no acute distress. I have confirmed and edited as necessary the HPI and ROS obtained by others. IMPRESSION AND PLAN: (M54.50, G89.29) Chronic bilateral low back pain without sciatica (primary encounter diagnosis) No orders found for this visit on 02/04/25. Treatments: Acupuncture: 38 minutes, lumbar spine, needles re-inserted every 15 minutes. MASSAGE CHAIR Time in: 12:48 Time out: 1:30 Plan/Goal: Continue care until goal of standing/walking with less pain, less severe pain overall, and less pain in daily activity. Return: 2 times, month Patient responded well, instructed to call with problems or concerns, responded well to all treatments. I personally performed treatments/procedures listed. Dr. Willam Mchugh, [facility] 01-28-2025 History of Presen t illness Narrative Images from the original note were not included. Stephen Rizo DO [facility] Orthopedics - Orthopedic Spine Surgeon [address] [facility] [id number] [place] [address] Phone: [phone] FAX: [phone] SPINE SURGERY OUTPATIENT CONSULT SERVICE DATE: 01/28/2025 LAST OFFICE VISIT: 10/25/2024 DATE OF : 1950 REFERRING PROVIDER: No referring provider defined for this encounter. CHIEF COMPLAINT: Gait and balance, low back pain HISTORY OF PRESENT ILLNESS Brent Mosqueda is a 74 year old female presenting alone. She has a past medical history of fibromyalgia, arthritis, palpitations, lumbar radiculopathy and hyperlipidemia. She was last evaluated in office on 08/10/2024 for follow-up. She reported worsening pain since participating in physical therapy. She noted pain started in her bilateral sides of low back with radiation to entire bilateral lower extremities, left side worse than right. She stated she felt her left leg was giving out when ambulating. Endorsed bilateral lower extremity weakness. She reported falling down two steps due to her left leg giving out. She stated she was having difficulty sleeping at night due to her leg pain. She noted the worst pain was in her low back. Denied any paresthesia. Denied loss of bowel or bladder function. Radiographic imaging of the lumbar spine displayed an L4-5 posterolateral fusion with hardware in stable position. It was recommended to obtain an MRI of the lumbar spine with and without contrast, in addition to a CT scan of the lumbar spine. It was recommended to follow-up once completed. At her last visit on 09/07/2024 she reported that her symptoms were the same. Continued to have bad low back pain. Stated the back pain was only present when she was up standing and walking. Stated that when she was sitting it was completely gone. Stated that the pain she had in her legs was in her anterior thighs. Stated that she felt weak and she cannot get up off the floor. Stated that physical therapy made her pain significantly worse. I believe her low back pain could be caused by a pseudoarthrosis in her lumbar spine. Her stenosis in her lumbar spine was not severe enough that I am convinced that it was the cause of her symptoms. Recommend pain management consult for injection at L3-4 to see if did not improve her bilateral anterior thigh pain. She will follow-up in 2 weeks after this injection, prompting her visit today. Today she states that her balance continues to get worse. States that she had a recent cervical MRI which ruled out severe stenosis. States that her injections in her low back have greatly improved her low back pain. Denies any radicular symptoms. She presents for imaging review, evaluation and plan of care. PREVIOUS CONSERVATIVE TREATMENTS: Lyrica Flexeril Tylenol Physical Therapy- 06/04/2024, 06/23/2024, 06/25/2024, 06/29/2024 Sacroiliac Joint injection under fluoroscopic guidance BILATERAL SIDES - 01/06/2025 PREVIOUS SURGERY: SURGERY #1: L4-L5 posterior spinal fusion 11/20/2023 PREOPERATIVE SYMPTOMS: Severe bilateral leg pain Smoker: Denies Diabetic: Denies Anticoagulants / Antiplatelets: Denies Occupation: n/a PAST MEDICAL HISTORY Diagnosis Date Arthritis Bug bites scratched open mosquito bites Contact lens/glasses fitting right eye contact for reading Fibromyalgia PCP follows History of cardiovascular stress test normal Hyperlipemia Lumbar radiculopathy 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 Rizo REMOVAL GALLBLADDER FAMILY HISTORY Problem Relation Age of Onset other (multiple myeloma) Mother COPD Father No Known Problems Sister No Known Problems Brother No Known Problems Brother Colon Cancer No Family History SOCIAL HISTORY[1] ALLERGIES No Known Allergies MEDICATIONS: metoprolol succinate ER (TOPROL XL) 25 mg 24 hr tablet TAKE ONE TABLET BY MOUTH EVERY AFTERNOON TYSHAWN, B.LONGUM, 10 million cell cap TAKE ONE CAPSULE BY MOUTH EVERY DAY hydrOXYzine HCl (ATARAX) 25 mg tablet TAKE ONE TABLET BY MOUTH THREE TIMES A DAY NEEDED amoxicillin (AMOXIL) 500 mg capsule Chlorhexidine Gluconate (PERIDEX) 0.12 % solution ibuprofen (MOTRIN) 600 mg tablet pregabalin (LYRICA) 75 mg capsule Take 75 mg by mouth two times a day. DULoxetine (CYMBALTA) 60 mg capsule TAKE ONE CAPSULE BY MOUTH EVERY DAY atorvastatin (LIPITOR) 20 mg tablet Take 1 tablet by mouth once daily. Bifidobacterium Infantis (TYSHAWN B.INFANTIS,) 4 mg cap Take 1 capsule by mouth once daily. ascorbic acid, vitamin C, (VITAMIN C) 500 mg tablet Take 1 tablet by mouth once daily. vit C/E/Zn/coppr/lutein/zeaxan (PRESERVISION AREDS-2 ORAL) Take 1 tablet by mouth twice daily. REVIEW OF SYSTEMS Review of Systems OBJECTIVE: There were no vitals taken for this visit. PHYSICAL EXAM GENERAL APPEARANCE: Well nourished, well developed, and no apparent distress. NEURO PSYCH: Patient oriented to person, place, and time. Mood pleasant. Benign affect. CARDIOVASCULAR: Palpable pulses. No edema noted. No varicosities. SKIN: Head, neck, trunk, and extremities dry, intact and without lesions. LYMPHATICS: No palpable nodes in axillae areas. Groin exam deferred MUSCULOSKELETAL PALPATION: SPINOUS PROCESS: No pain. PARASPINALS: No pain. MUSCLE TONE and BULK: Symmetrical in the lower extremities. MOTOR: Left Right Lower Extremity Hip Flexors 5/5 5/5 Quadriceps 5/5 5/5 Dorsiflexion 5/5 5/5 EHL/EDC 5/5 5/5 Plantar Flexion 5/5 5/5 SENSORY: Sensation intact to light touch L1-S1 GAIT: Able to perform toe and heel walk. Able to perform tandem gait. LONG TRACT SIGNS: No clonus. REFLEXES: symmetric non-brisk DATA REView MRI cervical spine 12/20/2024: My interpretation no severe central stenosis or cord compression ASSESSMENT/PLAN Brent Mosqueda is a 74-year-old female with low back pain and gait imbalance. - I had a long discussion today with the patient. I reviewed her imaging. Recommend neurology for her gait issues. Recommend continuing pain management for low back pain. Will order an MRI of the thoracic spine as well to rule out any thoracic myelopathy. MRI of thoracic spine will provide diagnostic evaluation of neural compression contributing to symptoms. MRI results will provide diagnostic guidance with continued conservative treatment measures such as potential epidural steroid injections versus surgical plan The following portions of the patient's history were reviewed, confirmed, and updated as necessary: allergies, current medications, past family history, past medical history, past social history, past surgical history, problem list, HPI, and ROS obtained by others. Some elements may be copied from a previous office note and have been reviewed/updated where appropriate. All portions reflect current medical decision making from today. The clinical and radiographic findings as well as the risks, benefits and alternatives of treatment have been reviewed in detail with the patient. Advised to call the office if symptoms worsen or new symptoms develop. Patient expressed understanding and is in agreement with plan. Stephen Rizo DO This note was partially generated using [employer] voice recognition system, and there may be some incorrect words, spellings, and punctuation that were not noted in checking the note before saving. [1] Social History Tobacco Use Smoking status: Never Passive exposure: Never Smokeless tobacco: Never Vaping Use Vaping status: Never Used Substance Use Topics Alcohol use: Yes Alcohol/week: 0.0 - 1.0 standard drinks of alcohol Comment: rare occassion Drug use: Never documented in this encounter [facility] 01-28-2025 Note HNO ID: [id number] Author: STEPHEN RIZO DO Service: ? Author Type: Physician Type: Progress Notes Filed: 01/28/2025 12:58 Note Text: Stephen Rizo DO [facility] [place] [facility] - Orthopedic Spine Surgeon [address] [facility] [address], [place] [address] [place] [id number] Phone: [phone] FAX: [phone] SPINE SURGERY OUTPATIENT CONSULT SERVICE DATE: 01/28/2025 LAST OFFICE VISIT: 10/25/2024 DATE OF : 1950 REFERRING PROVIDER: No referring provider defined for this encounter. CHIEF COMPLAINT: Gait and balance, low back pain HISTORY OF PRESENT ILLNESS Brent Mosqueda is a 74 year old female presenting alone. She has a past medical history of fibromyalgia, arthritis, palpitations, lumbar radiculopathy and hyperlipidemia. She was last evaluated in office on 08/10/2024 for follow-up. She reported worsening pain since participating in physical therapy. She noted pain started in her bilateral sides of low back with radiation to entire bilateral lower extremities, left side worse than right. She stated she felt her left leg was giving out when ambulating. Endorsed bilateral lower extremity weakness. She reported falling down two steps due to her left leg giving out. She stated she was having difficulty sleeping at night due to her leg pain. She noted the worst pain was in her low back. Denied any paresthesia. Denied loss of bowel or bladder function. Radiographic imaging of the lumbar spine displayed an L4-5 posterolateral fusion with hardware in stable position. It was recommended to obtain an MRI of the lumbar spine with and without contrast, in addition to a CT scan of the lumbar spine. It was recommended to follow-up once completed. At her last visit on 09/07/2024 she reported that her symptoms were the same. Continued to have bad low back pain. Stated the back pain was only present when she was up standing and walking. Stated that when she was sitting it was completely gone. Stated that the pain she had in her legs was in her anterior thighs. Stated that she felt weak and she cannot get up off the floor. Stated that physical therapy made her pain significantly worse. I believe her low back pain could be caused by a pseudoarthrosis in her lumbar spine. Her stenosis in her lumbar spine was not severe enough that I am convinced that it was the cause of her symptoms. Recommend pain management consult for injection at L3-4 to seeif did not improve her bilateral anterior thigh pain. She will follow-up in 2 weeks after this injection, prompting her visit today. Today she states that her balance continues to get worse. States that she had a recent cervical MRI which ruled out severe stenosis. States that her injections in her low back have greatly improved her low back pain. Denies any radicular symptoms. She presents for imaging review, evaluation and plan of care. PREVIOUS CONSERVATIVE TREATMENTS: [place] Flexeril Tylenol Physical Therapy- 06/04/2024, 06/23/2024, 06/25/2024, 06/29/2024 Sacroiliac Joint injection under fluoroscopic guidance BILATERAL SIDES - 01/06/2025 PREVIOUS SURGERY: SURGERY #1: L4-L5 posterior spinal fusion 11/20/2023 PREOPERATIVE SYMPTOMS: Severe bilateral leg pain Smoker: Denies Diabetic: Denies Anticoagulants / Antiplatelets: Denies Occupation: n/a PAST MEDICAL HISTORY Diagnosis Date Arthritis Bug bites scratched open mosquito bites Contact lens/glasses fitting right eye contact for reading Fibromyalgia PCP follows History of cardiovascular stress test normal Hyperlipemia Lumbar radiculopathy 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 Rizo REMOVAL GALLBLADDER FAMILY HISTORY Problem Relation Age of Onset other (multiple myeloma) Mother COPD Father No Known Problems Sister No Known Problems Brother No Known Problems Brother Colon Cancer No Family History SOCIAL HISTORY[1] ALLERGIES No Known Allergies MEDICATIONS: metoprolol succinate ER (TOPROL XL) 25 mg 24 hr tablet TAKE ONE TABLET BY MOUTH EVERY AFTERNOON CECILIA VILLAGRAN, 10 million cell cap TAKE ONE CAPSULE BY MOUTH EVERY DAY hydrOXYzine HCl (ATARAX) 25 mg tablet TAKE ONE TABLET BY MOUTH THREE TIMES A DAY NEEDED amoxicillin (AMOXIL) 500 mg capsule Chlorhexidine Gluconate (PERIDEX) 0.12 % solution ibuprofen (MOTRIN) 600 mg tablet pregabalin (LYRICA) 75 mg capsule Take 75 mg by mouth two times a day. DULoxetine (CYMBALTA) 60 mg capsule TAKE ONE CAPSULE BY MOUTH EVERY DAY atorvastatin (LIPITOR) 20 mg tabl (more content not included)... [facility] 01-27-2025 Telephone encounter Note Pharmacy faxed requesting the following refill Refill(s) Requested: Requested Prescriptions Pending Prescriptions Disp Refills hydrOXYzine HCl (ATARAX) 25 mg tablet [Pharmacy Med Name: HYDROXYZINE HCL 25MG TABS] 90 tablet 0 Sig: TAKE ONE TABLET BY MOUTH THREE TIMES A DAY NEEDED ALLERGIES No Known Allergies (home) [phone] (cell) Last Office Visit Date: 01/25/2025 Last Distance Health Visit: Visit date not found Future Appointment: 03/08/2025 The patients preferred pharmacy has been captured for this encounter? yes Request is for script(s) to be escript to pharmacy. Denisse Proctor LPN [facility] 01-27-2025 Miscellaneous Notes Pharmacy faxed requesting the following refill Refill(s) Requested: Requested Prescriptions Pending Prescriptions Disp Refills hydrOXYzine HCl (ATARAX) 25 mg tablet [Pharmacy Med Name: HYDROXYZINE HCL 25MG TABS] 90 tablet 0 Sig: TAKE ONE TABLET BY MOUTH THREE TIMES A DAY NEEDED ALLERGIES No Known Allergies (home) [phone] (cell) Last Office Visit Date: 01/25/2025 Last Distance Health Visit: Visit date not found Future Appointment: 03/08/2025 The patients preferred pharmacy has been captured for this encounter? yes Request is for script(s) to be escript to pharmacy. Dneisse Proctor LPN documented in this encounter [facility] 01-25-2025 Note HNO ID: [id number] Author: PORTIA CALHOUN, DO Service: ? Author Type: Physician Type: Progress Notes Filed: 01/30/2025 18:46 Note Text: Brent Mosqueda is a 74 year old female here for a Medicare wellness visit. Medicare Health Risk Assessment General Health Very good Exercise: Minutes/Day 0 min Exercise: Days/Week 0 days Alcohol: Daily Use Monthly or less Alcohol: Drinks/Day 1 or 2 Alcohol: 6 or more drinks Never Feel off balance Yes Concerns: Teeth/Dentures Yes Concerns: Sexual function No Troubled by feelings Anxious; Stressed; Lonely Frequency: Eating healthy diet Several days ADLs requiring help None of the above Safety precautions in home/vehicle No Smoke, vape, chews tobacco No Difficulty hearing No Difficulty seeing No Current Providers Specialists: I have reviewed specialist-related care of the patient in the medical record. Medical/Family history review Reviewed and updated problem list, medical/surgical/family/social history, medications, and allergies. Opioid use review Opioid Medications (last 90 days) No data to display Anxiety/Depression screening PHQ-2 Score: 4 (Higher risk for depression. PHQ-9 Recommended) Recommendation: no further intervention at this time Cognitive screening Mini Cog Score: 5 Cognitive screening reviewed and No further action needed (score 3-5). Functional Observation Was the patient's Timed Up AND Go test unsteady or >= 12 seconds? No Advance Care Planning Surrogate decision maker and/or advance care plan documented Measurements BP 102/58 (BP Site: Left Arm, BP Position: Sitting) Pulse 72 Temp 37 ?C (98.6 ?F) Ht 5' 2 (1.575 m) Wt 142 lb (64.4 kg) SpO2 97% BMI 25.97 kg/m? Vision Screening: Follows with optometry/ophthalmology Assessment/Plan Medicare annual wellness visit, subsequent (Z00.00) ASSESSMENT/PLAN: 1. Medicare annual wellness visit, subsequent - ICD9: V70.0, ICD10: Z00.00 (primary diagnosis) - Counseled on healthy diet and regular exercise - Follow up for annual exam in one year 2. Encounter for screening mammogram for breast cancer - ICD9: V76.12, ICD10: Z12.31 - ARIAN SCREENING W TUCKER 3. Change in bowel habits - ICD9: 787.99, ICD10: R19.4 - Chronic, Managed by Gastroenterology. 4. Generalized arthritis - ICD9: 716.90, ICD10: M19.90 5. Anxiety with depression - ICD9: 300.4, ICD10: F41.8 - Chronic. Not managed by medications. - Discontinue Cymbalta at this time and Start Citalopram. - Patient is not suicidal - increased stress at home causing anxiety. 6. Arthritis of both hands - ICD9: 716.94, ICD10: M19.041, M19.042 - managed by ibuprofen as needed 7. Overweight with body mass index (BMI) of 25 to 25.9 in adult - ICD9: 278.02, V85.21, ICD10: E66.3, Z68.25 Portia Calhoun DO Provider Attestation: I, Portia Calhoun DO personally performed the services described in this documentation. All medical record entries made by the scribe were at my direction and in my presence. I have reviewed the chart and discharge instructions (if applicable) and agree that the record reflects my personal performance and is accurate and complete. Electronically Signed: Portia Calhoun DO, January 25, 2025 2:37 PMScribe Attestation: The patient is seen and examined by Dr. Calhoun and the following reflects his/her service. Scribed by Alex Yu January 28, 2025 4:20 PM [facility] 01-25-2025 History of Presen t illness Narrative Images from the original note were not included. Brent Mosqueda is a 74 year old female here for a Medicare wellness visit. Medicare Health Risk Assessment General Health Very good Exercise: Minutes/Day 0 min Exercise: Days/Week 0 days Alcohol: Daily Use Monthly or less Alcohol: Drinks/Day 1 or 2 Alcohol: 6 or more drinks Never Feel off balance Yes Concerns: Teeth/Dentures Yes Concerns: Sexual function No Troubled by feelings Anxious; Stressed; Lonely Frequency: Eating healthy diet Several days ADLs requiring help None of the above Safety precautions in home/vehicle No Smoke, vape, chews tobacco No Difficulty hearing No Difficulty seeing No Current Providers Specialists: I have reviewed specialist-related care of the patient in the medical record. Medical/Family history review Reviewed and updated problem list, medical/surgical/family/social history, medications, and allergies. Opioid use review Opioid Medications (last 90 days) No data to display Anxiety/Depression screening PHQ-2 Score: 4 (Higher risk for depression. PHQ-9 Recommended) Recommendation: no further intervention at this time Cognitive screening Mini Cog Score: 5 Cognitive screening reviewed and No further action needed (score 3-5). Functional Observation Was the patient's Timed Up & Go test unsteady or >= 12 seconds? No Advance Care Planning Surrogate decision maker and/or advance care plan documented Measurements BP 102/58 (BP Site: Left Arm, BP Position: Sitting) Pulse 72 Temp 37 C (98.6 F) Ht 5' 2 (1.575 m) Wt 142 lb (64.4 kg) SpO2 97% BMI 25.97 kg/m Vision Screening: Follows with optometry/ophthalmology Assessment/Plan Medicare annual wellness visit, subsequent (Z00.) ASSESSMENT/PLAN: 1. Medicare annual wellness visit, subsequent - ICD9: V70.0, ICD10: Z00.00 (primary diagnosis) - Counseled on healthy diet and regular exercise - Follow up for annual exam in one year 2. Encounter for screening mammogram for breast cancer - ICD9: V76.12, ICD10: Z12.31 - ARIAN SCREENING W TUCKER 3. Change in bowel habits - ICD9: 787.99, ICD10: R19.4 - Chronic, Managed by Gastroenterology. 4. Generalized arthritis - ICD9: 716.90, ICD10: M19.90 5. Anxiety with depression - ICD9: 300.4, ICD10: F41.8 - Chronic. Not managed by medications. - Discontinue Cymbalta at this time and Start Citalopram. - Patient is not suicidal - increased stress at home causing anxiety. 6. Arthritis of both hands - ICD9: 716.94, ICD10: M19.041, M19.042 - managed by ibuprofen as needed 7. Overweight with body mass index (BMI) of 25 to 25.9 in adult - ICD9: 278.02, V85.21, ICD10: E66.3, Z68.25 Portia Calhoun DO Provider Attestation: I, Portia Calhoun DO personally performed the services described in this documentation. All medical record entries made by the scribe were at my direction and in my presence. I have reviewed the chart and discharge instructions (if applicable) and agree that the record reflects my personal performance and is accurate and complete. Electronically Signed: Portia Calhoun DO, January 25, 2025 2:37 PMScribe Attestation: The patient is seen and examined by Dr. Calhoun and the following reflects his/her service. Scribed by Alex Yu January 28, 2025 4:20 PM documented in this encounter [facility] 01-25-2025 Instructions Portia Calhoun DO - 01/25/2025 2:37 PM EDT Screening schedule The following prevention plan is recommended: DTaP,Tdap,Td Vaccine(1 - Tdap) Never done Mammogram Screening Never done Colorectal Cancer Screening due on 11/13/2023 Advance Directive Discussion Never done Medicare Advantage Annual Wellness Visit Never done WHAT YOU CAN DO TO PREVENT FALLS Many falls can be prevented. By making some changes, you can lower your chances of falling. Four things YOU can do to prevent falls for you* and your caregiver 1. Begin a regular exercise program Exercise is one of the most important ways to lower your chances of falling. It makes you stronger and helps you feel better. Exercises that improve balance and coordination (like Jose Luis Chi) are the most helpful. Lack of exercise leads to weakness and increases your chances of falling. Ask your doctor or health care provider about the best type of exercise program for you. 2. Have your health care provider review your medicines Have your doctor or pharmacist review all the medicines you take, even [id number] medicines. As you get older, the way medicines work in your body can change. Some medicines, or combinations of medicines, can make you sleepy or dizzy and can cause you to fall. 3. Have your vision checked Have your eyes checked by an eye doctor at least once a year. You may be wearing the wrong glasses or have a condition like glaucoma or cataracts that limits your vision. Poor vision can increase your chances of falling. 4. Make your home safer About half of all falls happen at home. To make your home safer: Remove things you can trip over (like papers, books, clothes, and shoes) from stairs and places where you walk. Remove small throw rugs or use double-sided tape to keep the rugs from slipping. Keep items you use often in cabinets you can reach easily without using a step stool. Have grab bars put in next to your toilet and in the tub or shower. Use non-slip mats in the bathtub and on shower floors. Improve the lighting in your home. As you get older, you need brighter lights to see well. Hang light-weight curtains or shades to reduce glare. Have handrails and lights put in on all staircases. Wear shoes both inside and outside the house. Avoid going barefoot or wearing slippers. For more information, contact: Centers for Disease Control and Prevention www.cdc.gov/injury * This information may not apply if you have certain medical conditions. documented in this encounter [facility] 01-20-2025 History of Presen t illness Narrative Chiropractor Progress/Procedure Note Brent Mosqueda is a 74 year old female who presents for Chiropractic follow up for Low Back Pain [facility] 08/22 ACU Have you noticed any improvement since your last visit? Had less pain/symptoms for approximately 2 weeks after the previous visit. Have you done any home exercises that Dr. Mchugh gave you? None given per insurance What is your response to the home exercises? N/A What aggravates your pain? 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 0/10 How low has your pain level been on the pain scale since your last visit? 0/10 How high has your pain level been on the pain scale since your last visit? /10 Since your last visit with Dr. Mchugh have you had any Images or injections? Yes, images and injections (X-ray dated 01/12/25 and SI Joint injection dated 01/06/25) REVIEW OF SYSTEMS: The patient reports numbness and tingling. PHYSICAL EXAM: The patient is alert and oriented in no acute distress. There is moderate hypertonicity through the lumbar paraspinal muscles and gluteal muscles. Range of motion: improved Pain on flexion and extension. Motor Strength: normal Neurovascular intact. Orthopedic testing: NA. Spinal segmental dysfunction: n/a The patient is alert and oriented in no acute distress. I have confirmed and edited as necessary the HPI and ROS obtained by others. IMPRESSION & PLAN: (M54.50, G89.29) Chronic bilateral low back pain without sciatica (primary encounter diagnosis) No orders found for this visit on 01/20/25. Treatments: SEATED: Acupuncture: 38 minutes, lumbar spine, needles re-inserted every 15 minutes. Time in: 1:30 Time out: 2:15 Plan/Goal: Continue care until goal of less severe pain overall. Home Exercise Program of None has been given per insurance. Return: 1 time, 4 weeks Patient responded well, instructed to call with problems or concerns, responded well to all treatments. I personally performed treatments/procedures listed. Dr. Willam Mchugh DC documented in this encounter [facility] 01-20-2025 Note HNO ID: [id number] Author: WILLAM MCHUGH DC Service: ? Author Type: Chiropractor Type: Progress Notes Filed: 01/20/2025 14:31 Note Text: Chiropractor Progress/Procedure Note Brent Mosqueda is a 74 year old female who presents for Chiropractic follow up for Low Back Pain [facility] 08/22 ACU Have you noticed any improvement since your last visit? Had less pain/symptoms for approximately 2 weeks after the previous visit. Have you done any home exercises that Dr. Mchugh gave you? None given per insurance What is your response to the home exercises? N/A What aggravates your pain? 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 0/10 How low has your pain level been on the pain scale since your last visit? 0/10 How high has your pain level been on the pain scale since your last visit? 6/10 Since your last visit with Dr. Mchugh have you had any Images or injections? Yes, images and injections (X-ray dated 01/12/25 and SI Joint injection dated 01/06/25) REVIEW OF SYSTEMS: The patient reports numbness and tingling. PHYSICAL EXAM: The patient is alert and oriented in no acute distress. There is moderate hypertonicity through the lumbar paraspinal muscles and gluteal muscles. Range of motion: improved Pain on flexion and extension. Motor Strength: normal Neurovascular intact. Orthopedic testing: NA. Spinal segmental dysfunction: n/a The patient is alert and oriented in no acute distress. I have confirmed and edited as necessary the HPI and ROS obtained by others. IMPRESSION AND PLAN: (M54.50, G89.29) Chronic bilateral low back pain without sciatica (primary encounter diagnosis) No orders found for this visit on 01/20/25. Treatments: SEATED: Acupuncture: 38 minutes, lumbar spine, needles re-inserted every 15 minutes. Time in: 1:30 Time out: 2:15 Plan/Goal: Continue care until goal of less severe pain overall. Home Exercise Program of None has been given per insurance. Return: 1 time, 4 weeks Patient responded well, instructed to call with problems or concerns, responded well to all treatments. I personally performed treatments/procedures listed. Dr. Willam Mchugh, [facility] 01-10-2025 Telephone encounter Note Pharmacy faxed requesting the following refill Refill(s) Requested: Requested Prescriptions Pending Prescriptions Disp Refills metoprolol succinate ER (TOPROL XL) 25 mg 24 hr tablet [Pharmacy Med Name: METOPROLOL SUCCINATE ER 25MG TB24] 90 tablet 0 Sig: TAKE ONE TABLET BY MOUTH EVERY AFTERNOON ALLERGIES No Known Allergies (home) [phone] (cell) Last Office Visit Date: 06/21/2024 Last Distance Health Visit: Visit date not found Future Appointment: 01/11/2025 The patients preferred pharmacy has been captured for this encounter? yes Request is for script(s) to be escript to pharmacy. Janell Becker LPN [facility] 01-10-2025 Miscellaneous Notes Pharmacy faxed requesting the following refill Refill(s) Requested: Requested Prescriptions Pending Prescriptions Disp Refills metoprolol succinate ER (TOPROL XL) 25 mg 24 hr tablet [Pharmacy Med Name: METOPROLOL SUCCINATE ER 25MG TB24] 90 tablet 0 Sig: TAKE ONE TABLET BY MOUTH EVERY AFTERNOON ALLERGIES No Known Allergies (home) [phone] (cell) Last Office Visit Date: 06/21/2024 Last Distance Health Visit: Visit date not found Future Appointment: 01/11/2025 The patients preferred pharmacy has been captured for this encounter? yes Request is for script(s) to be escript to pharmacy. Janell Becker LPN documented in this encounter [facility] 01-07-2025 Telephone encounter Note Attempted to call patient to follow-up from procedure, no answer. Message left to return call with any questions or concerns. Cynthia Tsang LPN [facility] 01-07-2025 Miscellaneous Notes Attempted to call patient to follow-up from procedure, no answer. Message left to return call with any questions or concerns. Cynthia Tsang LPN documented in this encounter [facility] 01-06-2025 Note HNO ID: [id number] Author: ZI STANTON DO Service: ? Author Type: Physician Type: Progress Notes Filed: 01/06/2025 11:31 Note Text: [facility] Date: 01/06/2025 Patient name: Brent Mosqueda Physician performing procedure: Zi Stanton DO Diagnosis: (M46.1) Sacroiliitis (primary encounter diagnosis) (M50.30) Degenerative disc disease, cervical (M48.02) Spinal stenosis of cervical region (R26.89) Impairment of balance Procedure: Sacroiliac Joint injection under fluoroscopic guidance BILATERAL SIDES Injectate: A total of 4 ml volume was injected The injectate consisted of: 2 ml of Depo-Medrol (40mg/ml), The remainder consisting of 2% Lidocaine Comments: None Improvement after today's procedure: as per nursing report HPI: Brent Mosqueda is an 74 year old FEMALE who presents today, in pain, for the procedure noted above. Review of Systems: Pertinent Positives: MSK: pain in the region being treated Neuro: weakness or numbness in the region being treated Skin: Negative (No itching) Eyes: Negative (No blurred or double vision) Respiratory: Negative (No Cough, [id number], Dyspnea on exertion, wheezing) Cardiovascular: Negative (No Chest Pain, Tightness, Pressure, Palpitations) Gastrointestinal: Negative (No Abdominal pain, Nausea, Vomiting, Constipation, Diarrhea) Genitourinary: Negative (No dysuria) Hematologic: Negative (No bleeding, bruising) OB: is Denied or Not Applicable Endocrine: Negative (No hot/cold intolerance) Psychiatric: Negative (No depression, anxiety or suicidal ideation) PAST MEDICAL HISTORY Diagnosis Date Arthritis Bug bites scratched open mosquito bites Contact lens/glasses fitting right eye contact for reading Fibromyalgia PCP follows History of cardiovascular stress test normal Hyperlipemia Lumbar radiculopathy 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 Rizo REMOVAL GALLBLADDER FAMILY HISTORY Problem Relation Age of Onset other (multiple myeloma) Mother COPD Father No Known Problems Sister No Known Problems Brother No Known Problems Brother Colon Cancer No Family History SOCIAL HISTORY[1] Current Outpatient Medications on File Prior to Visit Medication Sig ALIGN, B.LONGUM, 10 million cell cap TAKE ONE CAPSULE BY MOUTH EVERY DAY hydrOXYzine HCl (ATARAX) 25 mg tablet TAKE ONE TABLET BY MOUTH THREE TIMES A DAY NEEDED metoprolol succinate ER (TOPROL XL) 25 mg 24 hr tablet TAKE 1 TABLET BY MOUTH EVERY AFTERNOON amoxicillin (AMOXIL) 500 mg capsule Chlorhexidine Gluconate (PERIDEX) 0.12 % solution ibuprofen (MOTRIN) 600 mg tablet pregabalin (LYRICA) 75 mg capsule Take 75 mg by mouth two times a day. DULoxetine (CYMBALTA) 60 mg capsule TAKE ONE CAPSULE BY MOUTH EVERY DAY atorvastatin (LIPITOR) 20 mg tablet Take 1 tablet by mouth once daily. Bifidobacterium Infantis (ALIGN, B.INFANTIS,) 4 mg cap Take 1 capsule by mouth once daily. vit C/E/Zn/coppr/lutein/zeaxan (PRESERVISION AREDS-2 ORAL) Take 1 tablet by mouth twice daily. ascorbic acid, vitamin C, (VITAMIN C) 500 mg tablet Take 1 tablet by mouth once daily. No current facility-administered medications on file prior to visit. Objective Exam: Vitals: As per nursing documentation Constitutional: Normal Appearance, Oriented to Time, Place and Person Head: No lacerations, no external signs of trauma Eyes: Conjunctiva clear. No discharge from the eyes Cardiovascular: Appears well-perfused Pulmonary: Non-labored respirations Abdominal: Non-distended Skin: No visible rashes or ecchymosis Psychiatric: Mood appropriate for given condition Neurological: Gross movements are limited by pain, but otherwise unremarkable Data Reviewed: Nursing note and vitals reviewed. Additional imaging reviewed as appropriate Assessment and Plan: As noted above Spring protocol documentation / Pre-Procedure Checklist: Consent: Obtained in writing prior to procedure I had a nice discussion with the patient today about their current pain and the pathology that could be causing it We discussed different treatment options, including risks, benefits and alternatives. We agreed to proceed as previously discussed, or the plan was modified in accordance with the comments noted above Unless stated otherwise in the procedure note, the risks include but are not limited to infection, allergic reaction, increased pain, lack of therapeutic benefit, steroid reaction, nerve damage, paralys (more content not included)... [facility] 01-06-2025 History of Presen t illness Narrative [facility] Date: 01/06/2025 Patient name: Brent Mosqueda Physician performing procedure: Zi Stanton DO Diagnosis: (M46.1) Sacroiliitis (primary encounter diagnosis) (M50.30) Degenerative disc disease, cervical (M48.02) Spinal stenosis of cervical region (R26.89) Impairment of balance Procedure: Sacroiliac Joint injection under fluoroscopic guidance BILATERAL SIDES Injectate: A total of 4 ml volume was injected The injectate consisted of: 2 ml of Depo-Medrol (40mg/ml), The remainder consisting of 2% Lidocaine Comments: None Improvement after today's procedure: as per nursing report HPI: Brent Mosqueda is an 74 year old FEMALE who presents today, in pain, for the procedure noted above. Review of Systems: Pertinent Positives: MSK: pain in the region being treated Neuro: weakness or numbness in the region being treated Skin: Negative (No itching) Eyes: Negative (No blurred or double vision) Respiratory: Negative (No Cough, [id number], Dyspnea on exertion, wheezing) Cardiovascular: Negative (No Chest Pain, Tightness, Pressure, Palpitations) Gastrointestinal: Negative (No Abdominal pain, Nausea, Vomiting, Constipation, Diarrhea) Genitourinary: Negative (No dysuria) Hematologic: Negative (No bleeding, bruising) OB: is Denied or Not Applicable Endocrine: Negative (No hot/cold intolerance) Psychiatric: Negative (No depression, anxiety or suicidal ideation) PAST MEDICAL HISTORY Diagnosis Date Arthritis Bug bites scratched open mosquito bites Contact lens/glasses fitting right eye contact for reading Fibromyalgia PCP follows History of cardiovascular stress test normal Hyperlipemia Lumbar radiculopathy 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 Rizo [employer] FAMILY HISTORY Problem Relation Age of Onset other (multiple myeloma) Mother COPD Father No Known Problems Sister No Known Problems Brother No Known Problems Brother Colon Cancer No Family History SOCIAL HISTORY[1] Current Outpatient Medications on File Prior to Visit Medication Sig TYSHAWN, B.LONGUM, 10 million cell cap TAKE ONE CAPSULE BY MOUTH EVERY DAY hydrOXYzine HCl (ATARAX) 25 mg tablet TAKE ONE TABLET BY MOUTH THREE TIMES A DAY NEEDED metoprolol succinate ER (TOPROL XL) 25 mg 24 hr tablet TAKE 1 TABLET BY MOUTH EVERY AFTERNOON amoxicillin (AMOXIL) 500 mg capsule Chlorhexidine Gluconate (PERIDEX) 0.12 % solution ibuprofen (MOTRIN) 600 mg tablet pregabalin (LYRICA) 75 mg capsule Take 75 mg by mouth two times a day. DULoxetine (CYMBALTA) 60 mg capsule TAKE ONE CAPSULE BY MOUTH EVERY DAY atorvastatin (LIPITOR) 20 mg tablet Take 1 tablet by mouth once daily. Bifidobacterium Infantis (TYSHAWN B.INFANTIS,) 4 mg cap Take 1 capsule by mouth once daily. vit C/E/Zn/coppr/lutein/zeaxan (PRESERVISION AREDS-2 ORAL) Take 1 tablet by mouth twice daily. ascorbic acid, vitamin C, (VITAMIN C) 500 mg tablet Take 1 tablet by mouth once daily. No current facility-administered medications on file prior to visit. Objective Exam: Vitals: As per nursing documentation Constitutional: Normal Appearance, Oriented to Time, Place and Person Head: No lacerations, no external signs of trauma Eyes: Conjunctiva clear. No discharge from the eyes Cardiovascular: Appears well-perfused Pulmonary: Non-labored respirations Abdominal: Non-distended Skin: No visible rashes or ecchymosis Psychiatric: Mood appropriate for given condition Neurological: Gross movements are limited by pain, but otherwise unremarkable Data Reviewed: Nursing note and vitals reviewed. Additional imaging reviewed as appropriate Assessment and Plan: As noted above Spring protocol documentation / Pre-Procedure Checklist: Consent: Obtained in writing prior to procedure I had a nice discussion with the patient today about their current pain and the pathology that could be causing it We discussed different treatment options, including risks, benefits and alternatives. We agreed to proceed as previously discussed, or the plan was modified in accordance with the comments noted above Unless stated otherwise in the procedure note, the risks include but are not limited to infection, allergic reaction, increased pain, lack of therapeutic benefit, steroid reaction, nerve damage, paralysis, stroke, epidural hematoma, syncope, headache, respiratory or cardiac arrest, pneumothorax, and scar formation Once the plan was agreed upon, the patient gave written consent to proceed and was transported into the procedure room Surgical/Procedure pause or Time Out : Time Out was led by the physician in the procedure room, with the patient and all staff present and participating The following information was verified during the Time Out process: Patient name, patient date of , procedure site (marked), laterality, anticoagulants and allergies Procedure: The patient was prepped and draped in a sterile fashion in the prone position after informed consent was signed and all patient questions were answered including the risks, benefits, alternative treatment options, and prognosis. The risks are as mentioned above, except for pneumothorax. The fluoroscopic C-arm was positioned for optimal visualization of the sacroiliac (SI) joint. The inferior portion of the above SI joint was localized under fluoroscopic visualization and 3cc of 1% Lidocaine without Epinephrine was utilized for soft tissue local anesthesia. A 22 gauge, 3.5 inch spinal needle was inserted into the fluoroscopically hyperlucent region within the SI joint. A 0.5 cc. volume of Omnipaque 300 was injected into the joint and an articular flow pattern was obtained. Spot films were obtained. The solution noted above was then injected into the SI joint. Please see the nursing note for exact times (time out, procedure start, procedure end). After careful removal of the needle, there was minimal bleeding. The injection site was covered with appropriate sterile dressing. The patient was noted to have tolerated the procedure well and was discharged after an appropriate period of post-procedure observation. The patient was instructed to contact us if there were any complications. The patient was advised to follow-up with the requesting physician within one to two weeks or as per their requested follow-up plan. Post procedure visit summary with written instructions was offered to the patient. Zi Stanton DO Pain Management [facility] [1] Social History Tobacco Use Smoking status: Never Passive exposure: Never Smokeless tobacco: Never Vaping Use Vaping status: Never Used Substance Use Topics Alcohol use: Not Currently Comment: rare occassion Drug use: Never Order has been placed in the patient's chart with the following parameters for discharge from the physician: Patient is alert and oriented Vitals: Diastolic/Systolic +/- 20mmHg Respirations: 12-18 Pulse: 60-100 SpO2 is greater than or equal to 90% Patient has no nausea or vomiting Patient has no dizziness Pain level is +/- 2 from initial evaluation Dressing, dry and intact with no evidence of bleeding Criteria has been met, patient is okay to be discharged per the physician. Physician has gone in and evaluated the patient. Dressing dry and intact. No drainage noted. The patient denies nausea, numbness, tingling, weakness, shortness of breath, dizziness, or headache. Pain level 3/10. Vital signs within normal limits. Patient denied needing walked out by clinical staff and denied needing a wheelchair. Patient given discharge instructions and sent to transportation via ambulatory method. Patient left in good condition. Procedure to be performed: Bilateral Sacroiliac Joint Steroid Injection Patient was wheeled on stretcher from pre op bay to procedure room and assisted onto the procedure tablePatient s procedure was performed in an [facility] Procedure room. Pause completed at each level by provider to verify correct level and laterality placement Pressure was applied to patient s injection site(s) and bleeding was minimal. Patient had no complaint of shortness of breath, dizziness, headache, numbness, tingling, weakness or complications from procedure. Patient was assisted from the procedure table onto the stretcher and wheeled into a post op bay. Patient was advised a clinician will be to obtain another set of vitals. Time Out: 802 Confirmed patient name, date of , procedure site, laterality, and allergies Procedure Start: 805 Procedure End: 811 Review of Systems Constitutional: Negative for activity change, chills, fever and unexpected weight change. Genitourinary: Negative for difficulty urinating. Musculoskeletal: Positive for arthralgias, back pain, gait problem, joint swelling and neck pain. Negative for myalgias and neck stiffness. Neurological: Positive for weakness. Negative for numbness and headaches. Psychiatric/Behavioral: Positive for dysphoric mood. Negative for sleep disturbance and suicidal ideas. The patient is nervous/anxious. [employer]'s Name: mary Are you on a blood thinner: n If yes, is a hold required: n Last dose of blood thinner: n INR Result today: n Do you require a Lovenox bridge:n Are you a diabetic:n Are you/or could you be : n Are you taking Xanax for the procedure: n Are you currently on a steroid? n Are you currently on an antibiotic: n documented in this encounter [facility] 01-06-2025 Instructions Frida An LPN - 01/06/2025 8:17 AM EDT PROCEDURE DISCHARGE INSTRUCTIONS 01/06/2025 Brent Mosqueda 1950 Physician: Zi Stanton DO Procedure: Shoulder/Knee/Sacroiliac/Hip joint injection Post Procedure Instructions: If sedation not given, no driving for 3 hours after the procedure., Rest the day of the procedure., You may resume normal activities the day after the procedure, as tolerated., Pain should gradually subside over the next 2-3 weeks., Avoid movements that may aggravate pain., Apply cold compresses to injection site if needed., If medically acceptable, take over the counter anti-inflammatories such as ibuprofen or Aleve if needed for post procedure discomfort., and No hot baths, hot tubs or hot compresses for 24 hours. If you have any of the following signs or symptoms, please call our office at Fever and/or chills Swelling and/or drainage from injection site New pain that is different than your normal pain (other than soreness at the site of the procedure) Stiff neck Shortness of breath Severe increase in pain Motor dysfunctions, such as difficulty walking, bowel or bladder dysfunction and/or incontinence Headache that is severe, light sensitive or develops when changing positions (positional headache) Nausea and/or vomiting accompanied by headache that started 24-48 hours after the procedure If you have any emergent concerns, please call 911 or go to your local emergency room. Please also contact our office to let us know you will be seeking emergency care and why. documented in this encounter [facility] 01-06-2025 Note HNO ID: [id number] Author: FRIDA AN LPN Service: ? Author Type: LICENSED NURSE Type: Progress Notes Filed: 01/06/2025 11:31 Note Text: Order has been placed in the patient's chart with the following parameters for discharge from the physician: Patient is alert and oriented Vitals: Diastolic/Systolic +/- 20mmHg Respirations: 12-18 Pulse: 60-100 SpO2 is greater than or equal to 90% Patient has no nausea or vomiting Patient has no dizziness Pain level is +/- 2 from initial evaluation Dressing, dry and intact with no evidence of bleeding Criteria has been met, patient is okay to be discharged per the physician. Physician has gone in and evaluated the patient. Dressing dry and intact. No drainage noted. The patient denies nausea, numbness, tingling, weakness, shortness of breath, dizziness, or headache. Pain level 3/10. Vital signs within normal limits. Patient denied needing walked out by clinical staff and denied needing a wheelchair. Patient given discharge instructions and sent to transportation via ambulatory method. Patient left in good condition. [facility] 01-06-2025 Note HNO ID: [id number] Author: CYNTHIA TSANG LPN Service: ? Author Type: LICENSED NURSE Type: Progress Notes Filed: 01/06/2025 11:31 Note Text: Procedure to be performed: Bilateral Sacroiliac Joint Steroid Injection Patient was wheeled on stretcher from pre op bay to procedure room and assisted onto the procedure tablePatient?s procedure was performed in an [facility] Procedure room. Pause completed at each level by provider to verify correct level and laterality placement Pressure was applied to patient?s injection site(s) and bleeding was minimal. Patient had no complaint of shortness of breath, dizziness, headache, numbness, tingling, weakness or complications from procedure. Patient was assisted from the procedure table onto the stretcher and wheeled into a post op bay. Patient was advised a clinician will be to obtain another set of vitals. Time Out: 802 Confirmed patient name, date of , procedure site, laterality, and allergies Procedure Start: 805 Procedure End: 811 [facility] 01-06-2025 Note HNO ID: [id number] Author: ALLISON FAIRCHILD LPN Service: ? Author Type: LICENSED NURSE Type: Progress Notes Filed: 01/06/2025 11:31 Note Text: Review of Systems Constitutional: Negative for activity change, chills, fever and unexpected weight change. Genitourinary: Negative for difficulty urinating. Musculoskeletal: Positive for arthralgias, back pain, gait problem, joint swelling and neck pain. Negative for myalgias and neck stiffness. Neurological: Positive for weakness. Negative for numbness and headaches. Psychiatric/Behavioral: Positive for dysphoric mood. Negative for sleep disturbance and suicidal ideas. The patient is nervous/anxious. [employer]'s Name: mary Are you on a blood thinner: n If yes, is a hold required: n Last dose of blood thinner: n INR Result today: n Do you require a Lovenox bridge:n Are you a diabetic:n Are you/or could you be : n Are you taking Xanax for the procedure: n Are you currently on a steroid? n Are you currently on an antibiotic: n [facility] 12-28-2024 Telephone encounter Note [facility] 06/21/24 Patient phones requesting refills as follows: Requested Prescriptions Pending Prescriptions Disp Refills Deborah VILLAGRANGURWINDERMARQUES, 10 million cell cap [Pharmacy Med Name: ALIGN 10MG CAPS] 42 capsule 1 Sig: TAKE ONE CAPSULE BY MOUTH EVERY DAY Last sent 09/27/24 with 1 refill Order pended [facility] 12-28-2024 Miscellaneous Notes [facility] 06/21/24 Patient phones requesting refills as follows: Requested Prescriptions Pending Prescriptions Disp Refills TYSHAWN DeborahKANDIS, 10 million cell cap [Pharmacy Med Name: ALIGN 10MG CAPS] 42 capsule 1 Sig: TAKE ONE CAPSULE BY MOUTH EVERY DAY Last sent 09/27/24 with 1 refill Order pended documented in this encounter [facility] 12-27-2024 History of Presen t illness Narrative Chiropractor Progress/Procedure Note Brent Mosqueda is a 74 year old female who presents for Chiropractic follow up for Low Back Pain VN NO LIMIT MP ACU Have you noticed any improvement since your last visit? Yes patient states she got 2 days of pain relief following visit. Have you done any home exercises that Dr. Mchugh gave you? No What is your response to the home exercises? N/A What aggravates your pain? ADL's What makes your pain better? Chiro care Current pain level? 3/10 How low has your pain level been on the pain scale since your last visit? 2/10 How high has your pain level been on the pain scale since your last visit? 8/10. Since your last visit with Dr. Mchugh have you had any Images or injections? No REVIEW OF SYSTEMS: The patient reports numbness or tingling. PHYSICAL EXAM: The patient is alert and oriented in no acute distress. There is moderate hypertonicity through the lumbar paraspinal muscles and gluteal muscles. Range of motion: improved Pain on flexion, extension, and rotation. Motor Strength: normal Neurovascular intact. Orthopedic testing: NA. Spinal segmental dysfunction: n/a. The patient is alert and oriented in no acute distress. I have confirmed and edited as necessary the HPI and ROS obtained by others. IMPRESSION & PLAN: (M54.50, G89.29) Chronic bilateral low back pain without sciatica (primary encounter diagnosis) No orders found for this visit on 12/27/24. Treatments: Acupuncture: 38 minutes, lumbar spine, needles re-inserted every 15 minutes.(Chair position) Time in: 9:00 Time out: 10:07 Plan/Goal: Continue care until goal of less severe pain overall. Return: 2 times, 4 weeks Patient responded well, instructed to call with problems or concerns, responded well to all treatments. I personally performed treatments/procedures listed. Dr. Willam Mchugh DC documented in this encounter [facility] 12-27-2024 Note HNO ID: [id number] Author: WILLAM MCHUGH DC Service: ? Author Type: Chiropractor Type: Progress Notes Filed: 12/27/2024 10:09 Note Text: Chiropractor Progress/Procedure Note Brent Mosqueda is a 74 year old female who presents for Chiropractic follow up for Low Back Pain VN NO LIMIT MP ACU Have you noticed any improvement since your last visit? Yes patient states she got 2 days of pain relief following visit. Have you done any home exercises that Dr. Mchugh gave you? No What is your response to the home exercises? N/A What aggravates your pain? ADL's What makes your pain better? Chiro care Current pain level? 10 How low has your pain level been on the pain scale since your last visit? 2/10 How high has your pain level been on the pain scale since your last visit? 01/02. Since your last visit with Dr. Mchugh have you had any Images or injections? No REVIEW OF SYSTEMS: The patient reports numbness or tingling. PHYSICAL EXAM: The patient is alert and oriented in no acute distress. There is moderate hypertonicity through the lumbar paraspinal muscles and gluteal muscles. Range of motion: improved Pain on flexion, extension, and rotation. Motor Strength: normal Neurovascular intact. Orthopedic testing: NA. Spinal segmental dysfunction: n/a. The patient is alert and oriented in no acute distress. I have confirmed and edited as necessary the HPI and ROS obtained by others. IMPRESSION AND PLAN: (M54.50, G89.29) Chronic bilateral low back pain without sciatica (primary encounter diagnosis) No orders found for this visit on 12/27/24. Treatments: Acupuncture: 38 minutes, lumbar spine, needles re-inserted every 15 minutes.(Chair position) Time in: 9:00 Time out: 10:07 Plan/Goal: Continue care until goal of less severe pain overall. Return: 2 times, 4 weeks Patient responded well, instructed to call with problems or concerns, responded well to all treatments. I personally performed treatments/procedures listed. Dr. Willam Mchugh, [facility] 12-20-2024 History of Presen t illness Narrative Radiology Service Progress Note PATIENT NAME: Brent Mosqueda DATE OF SERVICE: December 20, 2024 TIME: 1:14 PM PATIENT IDENTITY VERIFICATION COMPLETED USING TWO (2) IDENTIFIERS: Name and Date of confirmed by patient verbally. FALL SCREENING: Has the patient had 2 falls in the last year or 1 fall with injury or currently using an Ambulatory Assistive Device (Walker, Cane, Wheelchair, Crutches, etc.)? No PATIENT GENDER DATA: Assigned female at . status: : No status: NO. PATIENT RELEVANT IMPLANT DATA REVIEWED: Yes PATIENT PRESENTS WITH AN IMPLANTABLE OR ATTACHED NIGHT FILLER: No RADIOLOGY DEPARTMENT: MR; Exam(s) Completed: Spine: Cervical spine. Aromatherapy Administered: No PERIPHERAL IV DATA: Not applicable SIGNED BY: RT Sekou(R) December 20, 2024 1:14 PM documented in this encounter [facility] 12-20-2024 Note HNO ID: [id number] Author: CONRADO SANTOS RT(R) Service: ? Author Type: Technologist Type: Progress Notes Filed: 12/20/2024 13:15 Note Text: Radiology Service Progress Note PATIENT NAME: Brent Mosqueda DATE OF SERVICE: December 20, 2024 TIME: 1:14 PM PATIENT IDENTITY VERIFICATION COMPLETED USING TWO (2) IDENTIFIERS: Name and Date of confirmed by patient verbally. FALL SCREENING: Has the patient had 2 falls in the last year or 1 fall with injury or currently using an Ambulatory Assistive Device (Walker, Cane, Wheelchair, Crutches, etc.)? No PATIENT GENDER DATA: Assigned female at . status: : No status: NO. PATIENT RELEVANT IMPLANT DATA REVIEWED: Yes PATIENT PRESENTS WITH AN IMPLANTABLE OR ATTACHED NIGHT FILLER: No RADIOLOGY DEPARTMENT: MR; Exam(s) Completed: Spine: Cervical spine. Aromatherapy Administered: No PERIPHERAL IV DATA: Not applicable SIGNED BY: RT Sekou(R) December 20, 2024 1:14 PM [facility] 12-17-2024 Telephone encounter Note Pharmacy requesting refill. Okay to refill? [facility] 12-17-2024 Miscellaneous Notes Pharmacy requesting refill. Okay to refill? documented in this encounter [facility] 12-09-2024 Note HNO ID: [id number] Author: KAN FLORES LMT Service: ? Author Type: Chiropractor Type: Progress Notes Filed: 12/09/2024 16:41 Note Text: New Patient Chiropractor Progress Note Brent Mosqueda is a 74 year old female who presents today with complaints of low back pain, bilateral radiating leg pain, and bilateral knee pain. She describes the pain as being an intermittent aching and rates the pain as a 7/10. The pain began 3 years ago as a result of no significant SEAN, although patient mentions having a fall from a horse in the . The pain is exacerbated by clothing, ADLs, bending, squatting, twisting, seated to standing, driving (prolonged), and prolonged standing/walking. Previous treatments have included surgery which included spinal surgery fusion L3-L5 dated 2023 , intermittent use of ldec-aic-racywas NSAIDs, Physical therapy, steroid injections, and manipulation . She complains of radiation to the both legs and both knees. She denies numbness, tingling, or electric shocks. She reports occasional popping in spine. She reports difficulty with walking (instability) and muscle weakness in legs. JAB No Limit MP 30 acu (Medicaid) Pain Intensity 2 - The pain is moderate at the moment Personal Care (Washing/Dressing) 0 - I can look after myself normally without causing extra pain Lifting 3 - Pain prevents me from lifting heavy weights but I can manage light/medium weights if conveniently positioned (e.g. on a table) Walking 2 - Pain prevents me from walking more than 1/2 mile Sitting 0 - I can sit in any chair as long as I like Standing 3 - Pain prevents me from standing more than 1/2 hour Sleeping 0 - Pain does not prevent me from sleeping well Sex Life 0 - My sex life is normal and causes no pain Social Life 1 - My social life is normal but increases the degree of pain Traveling 2 - Pain is bad but I manage journeys over 2 hours Total Score 26 Interpretation 21% - 40% - moderate disability HISTORY: FAMILY HISTORY Problem Relation Age of Onset other (multiple myeloma) Mother COPD Father No Known Problems Sister No Known Problems Brother No Known Problems Brother Colon Cancer No Family History Social Connections: Not on file Problem List Noted Noted By Resolved Resolved By Hiatal hernia 07/05/2024 Madan Weber MD No Chronic gastritis without bleeding 07/05/2024 Madan Weber MD No Elevated LFTs 06/28/2024 Portia Calhoun DO No Trigeminal neuralgia 06/20/2024 Portia Calhoun DO No S/P lumbar fusion 11/20/2023 Bright Soria MD No Preop examination 11/07/2023 Flaca Tate APRN.FURNACE BUILDER No Lumbar radiculopathy 08/24/2023 Portia Calhoun DO No Generalized osteoarthrosis 08/04/2023 Sagar Calero, PT No Recurrent falls while walking 08/04/2023 Sagar Calero, PT No Chronic joint pain 07/27/2023 Portia Calhoun DO No Spinal stenosis of lumbar region with neurogenic claudication 07/27/2023 Portia Calhoun, DO No Anxiety with depression 05/20/2023 Portia Calhoun, DO No Fibromyalgia 05/20/2023 Portia Calhoun, DO No Elevated liver enzymes 05/20/2023 Portia Calhoun, DO No VELÁZQUEZ (dyspnea on exertion) 01/17/2023 Penny Gomez, Auto Specialty Services Manager No PVC (premature ventricular contraction) 01/17/2023 Penny Gomez, Auto Specialty Services Manager No Palpitations 12/05/2022 eLonardo Goss MD No Chronic left shoulder pain 07/11/2021 Estefany Preciado MD No Postoperative pain 02/14/2023 Marcia Cifuentes DPM 07/15/2023 Rito Adam MD Foot pain, right 08/28/2022 Estefany Preciado MD 07/15/2023 Rito Adam MD MERLYN (generalized anxiety disorder) 07/11/2021 Estefany Preciado MD 07/15/2023 iRto Adam MD Contusion of coccyx 07/11/2021 Estefany Preciado MD 07/15/2023 Rito Adam MD MEDICATIONS: Current Outpatient Medications Medication Sig metoprolol succinate ER (TOPROL XL) 25 mg 24 hr tablet TAKE 1 TABLET BY MOUTH EVERY AFTERNOON amoxicillin (AMOXIL) 500 mg capsule Chlorhexidine Gluconate (PERIDEX) 0.12 % solution (Patient not taking: Reported on 12/03/2024) ibuprofen (MOTRIN) 600 mg tablet Deborah VILLAGRAN.LONGUM, 10 million cell cap TAKE ONE CAPSULE BY MOUTH EVERY DAY pregabalin (LYRICA) 75 mg capsule Take 75 mg by mouth two times a day. DULoxetine (CYMBALTA) 60 mg capsule TAKE ONE CAPSULE BY MOUTH EVERY DAY hydrOXYzine HCl (ATARAX) 25 mg tablet TAKE ONE TABLET BY MOUTH THREE TIMES A DAY NEEDED atorvastatin (LIPITOR) 20 mg tablet Take 1 tablet by mouth once daily. Bifidobacterium Infantis (TYSHAWN B.INFANTIS,) 4 mg cap Take 1 capsule by mouth once daily. ascorbic acid, vitamin C, (VITAMIN C) 500 mg tablet Take 1 tablet by mouth once daily. vit C/E/Zn/coppr/lutein/zeaxan (PRESERVISION AREDS-2 ORAL) Take 1 tablet by mouth twice daily. No current facility-administered medications for this visit. REVIEW OF SYSTEMS: Constitutional: Negative for fever and c (more content not included)... [facility] 12-09-2024 History of Presen t illness Narrative New Patient Chiropractor Progress Note Brent Mosqueda is a 74 year old female who presents today with complaints of low back pain, bilateral radiating leg pain, and bilateral knee pain. She describes the pain as being an intermittent aching and rates the pain as a 7/10. The pain began 3 years ago as a result of no significant SEAN, although patient mentions having a fall from a horse in the . The pain is exacerbated by clothing, ADLs, bending, squatting, twisting, seated to standing, driving (prolonged), and prolonged standing/walking. Previous treatments have included surgery which included spinal surgery fusion L3-L5 dated 2023 , intermittent use of [id number] NSAIDs, Physical therapy, steroid injections, and manipulation . She complains of radiation to the both legs and both knees. She denies numbness, tingling, or electric shocks. She reports occasional popping in spine. She reports difficulty with walking (instability) and muscle weakness in legs. JAB No Limit MP 30 acu (Medicaid) Pain Intensity 2 - The pain is moderate at the moment Personal Care (Washing/Dressing) 0 - I can look after myself normally without causing extra pain Lifting 3 - Pain prevents me from lifting heavy weights but I can manage light/medium weights if conveniently positioned (e.g. on a table) Walking 2 - Pain prevents me from walking more than 1/2 mile Sitting 0 - I can sit in any chair as long as I like Standing 3 - Pain prevents me from standing more than 1/2 hour Sleeping 0 - Pain does not prevent me from sleeping well Sex Life 0 - My sex life is normal and causes no pain Social Life 1 - My social life is normal but increases the degree of pain Traveling 2 - Pain is bad but I manage journeys over 2 hours Total Score 26 Interpretation 21% - 40% - moderate disability HISTORY: FAMILY HISTORY Problem Relation Age of Onset other (multiple myeloma) Mother COPD Father No Known Problems Sister No Known Problems Brother No Known Problems Brother Colon Cancer No Family History Social Connections: Not on file Problem List Noted Noted By Resolved Resolved By Hiatal hernia 07/05/2024 Madan Weber MD No Chronic gastritis without bleeding 07/05/2024 Madan Weber MD No Elevated LFTs 06/28/2024 Portia Calhoun, DO No Trigeminal neuralgia 06/20/2024 Portia Calhoun, DO No S/P lumbar fusion 11/20/2023 Bright Soria MD No Preop examination 11/07/2023 Flaca Tate, TELEVISION NEWS PHOTOGRAPHER.FURNACE BUILDER No Lumbar radiculopathy 08/24/2023 Portia Calhoun, DO No Generalized osteoarthrosis 08/04/2023 Sagar Calero, PT No Recurrent falls while walking 08/04/2023 Sagar Calero, PT No Chronic joint pain 07/27/2023 Portia Calhoun, DO No Spinal stenosis of lumbar region with neurogenic claudication 07/27/2023 Portia Calhoun, DO No Anxiety with depression 05/20/2023 Portia Calhoun, DO No Fibromyalgia 05/20/2023 Portia Calhoun, DO No Elevated liver enzymes 05/20/2023 Potria Calhoun, DO No VELÁZQUEZ (dyspnea on exertion) 01/17/2023 Penny Gomez, Auto Specialty Services Manager No PVC (premature ventricular contraction) 01/17/2023 Penny Gomez, Auto Specialty Services Manager No Palpitations 12/05/2022 Leonardo Goss MD No Chronic left shoulder pain 07/11/2021 Estefany Preciado MD No Postoperative pain 02/14/2023 Marcia Cifuentes, DPM 07/15/2023 Rito Adam MD Foot pain, right 08/28/2022 Estefany Preciado MD 07/15/2023 Rito Adam MD MERLYN (generalized anxiety disorder) 07/11/2021 Estefany Preciado MD 07/15/2023 Rito Adam MD Contusion of coccyx 07/11/2021 Estefany Preciado MD 07/15/2023 Rito Adam MD MEDICATIONS: Current Outpatient Medications Medication Sig metoprolol succinate ER (TOPROL XL) 25 mg 24 hr tablet TAKE 1 TABLET BY MOUTH EVERY AFTERNOON amoxicillin (AMOXIL) 500 mg capsule Chlorhexidine Gluconate (PERIDEX) 0.12 % solution (Patient not taking: Reported on 12/03/2024) ibuprofen (MOTRIN) 600 mg tablet TYSHAWN B.LONGUM, 10 million cell cap TAKE ONE CAPSULE BY MOUTH EVERY DAY pregabalin (LYRICA) 75 mg capsule Take 75 mg by mouth two times a day. DULoxetine (CYMBALTA) 60 mg capsule TAKE ONE CAPSULE BY MOUTH EVERY DAY hydrOXYzine HCl (ATARAX) 25 mg tablet TAKE ONE TABLET BY MOUTH THREE TIMES A DAY NEEDED atorvastatin (LIPITOR) 20 mg tablet Take 1 tablet by mouth once daily. Bifidobacterium Infantis (TYSHAWN, B.INFANTIS,) 4 mg cap Take 1 capsule by mouth once daily. ascorbic acid, vitamin C, (VITAMIN C) 500 mg tablet Take 1 tablet by mouth once daily. vit C/E/Zn/coppr/lutein/zeaxan (PRESERVISION AREDS-2 ORAL) Take 1 tablet by mouth twice daily. No current facility-administered medications for this visit. REVIEW OF SYSTEMS: Constitutional: Negative for fever and chills. Eyes: Negative for blurred vision and double vision. Respiratory: Negative for shortness of breath. Cardiovascular: Negative for chest pain and leg swelling. Gastrointestinal: Negative for nausea. Genitourinary: Negative for dysuria. Neurological: Negative for tingling, weakness and headaches. Endo/Heme/Allergies: Does bruise/Does not bleed easily. Psychiatric/Behavioral: Negative for suicidal ideas and substance abuse. OBSERVATION/PHYSICAL EXAM: A&Ox3 Antalgic: Mildly Flexed Bilateral DTR: 2/4 to UE and LE MOTOR : 5/5 to upper extremity and lower extremity (only gets weak in upright/extended positions, and has occasional drop-attacks) SENSORY: Pin prick/light touch intact RANGE OF MOTION: lumbar limited/painful @ 15 degrees extension, 70 degrees rotation bilaterally HEEL WALK: WNL TOE WALK: WNL ORTHO EXAM: +Fabers, +gaenslens, -SLR, -Slumps test PROVACITIVE TESTING: N/A PALPATION:+++taut/hypertonic L paraspinals Tenderness: SI and midline lumbar tenderness LEG LENGTH: N/A wnl PERIPHERAL PULSES: Palpable PERIPHERAL EDEMA: na Segmental dysfunction : none The patient is alert and oriented in no acute distress. I have confirmed and edited as necessary the HPI and ROS obtained by others. IMPRESSION & PLAN: (R26.89) Impairment of balance Plan: CONSULT TO CHIROPRACTOR, CONSULT FOR ACUPUNCTURE (M96.1) Post laminectomy syndrome Plan: CONSULT TO CHIROPRACTOR, CONSULT FOR ACUPUNCTURE Appointment on 12/09/24 CONSULT TO CHIROPRACTOR CONSULT FOR ACUPUNCTURE Discussed with patient previous surgery in [place] and how it has worsened her symptoms. I explained I do not feel she is a manipulation candidate at this time and would like to trial acupuncture. I noted her symptoms in her Lower extremities are brought on by extension positioning (standing, laying on stomach) and relieved by sitting/flexion positions:considering LSS (in extension positions) Treatments Acupuncture : lumbar spine pain points, sacral, and pelvic, 3 units, 38 minutes-Chair position Time in: 12:59 Time out: 2:35 Return: 2 times, 4 weeks Patient responded well, instructed to call with problems or concerns I personally performed treatments/procedures listed above. Plan/Goal: Continue care until goal of standing/walking with less pain., less severe pain overall., and less pain in daily activities. Dr. Willam Mchugh DC documented in this encounter [facility] 12-07-2024 Telephone encounter Note INSURANCE CO. ID # GROUP # CO-PAY DEDUCTIBLE COINSUR. OUT OF POCKET MAX PRIOR AUTH REQU'D LIMITATIONS REFERENCE # SPOKE TO: [employer] MEDICARE/MEDICAID [id number] - - 100% - AFTER ACU VISIT LIMIT NO LIMIT MP 30 ACU [id number] ALEXANDER B Is this a Medicare or Medicaid product? YES Does this follow Medicare guidelines? Yes and No -Medicare will not cover acupuncture when performed by a chiropractor -Medicaid will cover acupuncture when following guidelines listed below Is this a [employer] product? N Does this require clinical submission through [employer]? N Chiropractor: Dr. Mchugh Contracted: Y Chiropractic benefits: In network Are the billable benefits a HARD LIMIT? N If NO, how do we ask for more visits? If a PA is required, where do we send it? : Fax: Mail: Phone: Website: I'm calling today to verify a patient's chiropractic benefits and I have multiple CPT codes I need verified that they are valid and billable by the chiropractor, I also need to know if these codes need prior auth Also inform physician representative that the PHYSICAL THERAPY codes are being billed by a CHIROPRACTOR NOT A PHYSICAL THERAPIST CPT CODE NAME COVERED? 02026 Manual manipulations spine 1-2 Y 47386 74675 Manual manipulations spine 3-4 Manual manipulations spine 5 Y Y 23795 Manual manipulations of extremities Y 03892 Hot/cold packs 83688 Mechanical traction 24255 Electrical stimulation 96946 Therapeutic exercises 34151 Neuromuscular re-education 95786 87078 Dry needling 1-2 Muscles Dry needling 3-4 muscles 79664 Massage therapy 34702 Manual therapy 43417 Acupuncture < 15 minutes Y-LB, NECK, MIGRAINE PAIN ONLY [id number] Acupuncture > 15 minutes Acupuncture with stim < 15 minutes Acupuncture with stim > 15 minutes Y-LB, NECK, MIGRAINE PAIN ONLY Cynthia Monreal LMT [facility] 12-07-2024 Miscellaneous Notes INSURANCE CO. ID # GROUP # CO-PAY DEDUCTIBLE COINSUR. OUT OF POCKET MAX PRIOR AUTH REQU'D LIMITATIONS REFERENCE # SPOKE TO: [employer]IC[employer]/MEDICAID [id number] - - 100% - AFTER ACU VISIT LIMIT NO LIMIT MP 30 ACU [id number] ALEXANDER B Is this a Medicare or Medicaid product? YES Does this follow Medicare guidelines? Yes and No -Medicare will not cover acupuncture when performed by a chiropractor -Medicaid will cover acupuncture when following guidelines listed below Is this a [employer] product? N Does this require clinical submission through [employer]? N Chiropractor: Dr. Mchugh Contracted: Y Chiropractic benefits: In network Are the billable benefits a HARD LIMIT? N If NO, how do we ask for more visits? If a PA is required, where do we send it? : Fax: Mail: Phone: Website: I'm calling today to verify a patient's chiropractic benefits and I have multiple CPT codes I need verified that they are valid and billable by the chiropractor, I also need to know if these codes need prior auth Also inform physician representative that the PHYSICAL THERAPY codes are being billed by a CHIROPRACTOR NOT A PHYSICAL THERAPIST CPT CODE NAME COVERED? 19903 Manual manipulations spine 1-2 Y 57985 81809 Manual manipulations spine 3-4 Manual manipulations spine 5 Y Y 65878 Manual manipulations of extremities Y 91020 Hot/cold packs 92481 Mechanical traction 75065 Electrical stimulation 30285 Therapeutic exercises 48623 Neuromuscular re-education 70387 80040 Dry needling 1-2 Muscles Dry needling 3-4 muscles 86945 Massage therapy 30723 Manual therapy 53573 Acupuncture < 15 minutes Y-LB, NECK, MIGRAINE PAIN ONLY [id number] [phone] Acupuncture > 15 minutes Acupuncture with stim < 15 minutes Acupuncture with stim > 15 minutes Y-LB, NECK, MIGRAINE PAIN ONLY Cynthia Monreal LMT documented in this encounter [facility] 12-03-2024 Note Addended by: ZI STANTON on: 12/03/2024 04:48 PM Modules accepted: Orders [facility] 12-03-2024 Miscellaneous Notes Addended by: ZI STANTON on: 12/03/2024 04:48 PM Modules accepted: Orders Patient pharmacy called stating that the alprazolam script directions is for 2 tablets and the quantity is for 2 please send a new script. documented in this encounter [address]11-2025 Telephone encounter Note Patient pharmacy called stating that the alprazolam script directions is for 2 tablets and the quantity is for 2 please send a new script. [facility] 12-03-2024 Instructions Zi Stanton DO - 12/03/2024 9:42 AM EDT We discussed your low back pain, leg pain, and balance issues: - I recommend proceeding with an SI (sacroiliac) joint injection to address your low back pain. This is a steroid injection targeting the area where your pelvis and spine meet, which may help reduce your pain and improve your ability to tolerate physical therapy. I will also prescribe a medication to help you relax before the procedure. Please let us know if you decide to proceed with this option. - If the SI joint injection does not provide relief, we may consider additional diagnostic injections or nerve blocks at the facet joints in your spine. - I recommend restarting physical therapy (PT) with a focus on strengthening your gluteal muscles and back. This will help improve your balance and functional strength. I will also place orders for clinical manager home care and acupuncture, which may provide additional pain relief and support. I encourage you to see our rehab team here at the spine center, as they work closely with us to address these issues comprehensively. - We will also evaluate your balance issues further. I have ordered an x-ray and MRI of your neck to rule out any cervical spine issues that could be contributing to your symptoms. Please complete the x-ray first, as it is required for insurance approval of the MRI. You can walk in for the x-ray at your convenience, and the MRI can be scheduled afterward. Next steps: - Complete the x-ray of your neck within the next few days. Once the x-ray is done, schedule the MRI of your neck. - Decide if you would like to proceed with the SI joint injection. If you choose to move forward, we will coordinate the procedure and provide a prescription for a medication to help you relax beforehand. - Begin physical therapy, clinical manager home care, and acupuncture with our rehab team here at the spine center. If you prefer to go to a location closer to home, please let us know, but we recommend starting with our team for a more integrated approach. - Monitor your symptoms, including pain, balance, and leg weakness. If your symptoms worsen or you experience new issues, such as bowel or bladder incontinence, please contact our office immediately. Please call our office if you have any questions or need assistance scheduling your tests or therapy appointments. documented in this encounter [facility] 12-03-2024 Note HNO ID: [id number] Author: FRANKO AVALOS LPN Service: ? Author Type: LICENSED NURSE Type: Progress Notes Filed: 12/03/2024 13:08 Note Text: Review of Systems Constitutional: Negative for activity change, appetite change, chills and fever. Genitourinary: Negative for difficulty urinating. Musculoskeletal: Positive for arthralgias, back pain, gait problem, neck pain and neck stiffness. Negative for joint swelling and myalgias. Neurological: Negative for weakness, numbness and headaches. Psychiatric/Behavioral: Negative for dysphoric mood, sleep disturbance and suicidal ideas. The patient is nervous/anxious. [facility] 12-03-2024 History of Presen t illness Narrative Review of Systems Constitutional: Negative for activity change, appetite change, chills and fever. Genitourinary: Negative for difficulty urinating. Musculoskeletal: Positive for arthralgias, back pain, gait problem, neck pain and neck stiffness. Negative for joint swelling and myalgias. Neurological: Negative for weakness, numbness and headaches. Psychiatric/Behavioral: Negative for dysphoric mood, sleep disturbance and suicidal ideas. The patient is nervous/anxious. Images from the original note were not included. [facility] Today's Date: 12/03/2024 Name: Brent Mosqueda : 1950 Purpose: New Patient Consultation Chief complaint: Radiculopathy, lumbar region Referring Clinician: Phoenix, Stephen P, DO Pertinent Past Medical History: Fibromyalgia, PVC, Chronic gastritis, Spinal stenosis of lumbar, MERLYN, MDD, Pertinent Past Surgeries: Spinal fusion L4 and L5 (Dr. Rizo), Foot surgery (Right), Ankle surgery (Left) x3, Pertinent Social History: None History of Present Illness (HPI): 11/25/2024 - Initial HPI (Obtained by Zi Stanton D.O.). Chronic Low Back Pain and Bilateral Leg Pain: - Predominantly left-sided low back pain, occasionally on the right. - Pain radiates down the anterior aspect of both legs, primarily to the knees; occasionally extends further. - Describes leg pain as intense rather than sharp. - Aggravated by bending, vacuuming, and carpet cleaning; alleviated by sitting. - Denies sciatic pain, numbness, or tingling in the legs. - Denies bowel or bladder incontinence. - Reports significant weakness in the legs, causing balance issues and difficulty walking. - Describes balance issues as feeling wobbly and drunk when walking. - Balance issues and leg weakness began before surgery in October of last year. - Denies neck pain, numbness, or tingling in the neck or arms. - Denies improvement in pain or balance issues after surgery. - Denies improvement in leg pain after previous physical therapy sessions. - Reports a history of ankle fusions, possibly affecting balance. Current Pain Medications: Neuropathics: Cymbalta 60mg, Lyrica 75mg NSAIDS: Motrin 600mg Muscle Relaxants: Topicals: Other Prescription or OTC Pain Medications: Opioids (when applicable): Anti-depressants or Mood-Stabilizers: None Anti-Coagulants: None Therapies Attended (Current or Most Recent): Physical Therapy 4 visits, treatment dates between 06/04/2024 and 06/29/2024 12/03/2024 AG SPINE COMBINATION Questionnaire GREENLIGHT Completed Date 12/03/2024 Questionnaire Opiod Risk Tool Completed Date 12/03/2024 Greenlight Questionnaire GREENLIGHT Completed Date 12/03/2024 Opioid Risk Tool Opiod Risk Tool Date Completed 12/03/2024 MERLYN-7 Anxiety Score 9 Completed Date 12/03/2024 PHQ9P Score 9 Completed Date 12/03/2024 (All drug screens are appropriate unless indicated otherwise) Treatment History: PAIN PROCEDURES: DATE PROCEDURE IMPROVEMENT 09/23/2024 TFESI L3/4 0% MEDICATIONS Taken TO DATE (for the chief complaint(s)): Neuropathics: Lyrica (Prebabalin), Cymbalta (Duloxetine), Effexor (Venlafaxine) NSAIDS: Motrin (Ibuprofen), Relafen (Nabumetone) Muscle Relaxants: Zanaflex (Tizanidine) Topicals: None Other Prescription or OTC Pain Medications: None Opioids: Oxycodone (eg Percocet) Data Reviewed Today: Allergies: ALLERGIES No Known Allergies Social History Tobacco Use Smoking status: Never Passive exposure: Never Smokeless tobacco: Never Vaping Use Vaping status: Never Used Substance Use Topics Alcohol use: Not Currently Comment: rare occassion Drug use: Never 10/08/2024 12/02/2024 INTAKE PAIN ASSESSMENT Are you having pain associated with your visit today? Yes, Provider notified Yes, Provider notified Pain Level 5 Pain Location Back-Lower Back-Lower Description Aching;Dull Aching Duration Units Months Frequency Intermittent Intervention/Comfort measure Medication;Relaxation;Positionin g Compliance: PDMP website checked and validated on 12/03/2024 by All prescriptions have been APPROPRIATELY filled. No suspicious activity was identified. Risk Assessment: MERLYN-7: 12/03/2024 MERLYN - 7 SCORES Score 9 (0-4) minimal anxiety, (5-9) mild anxiety, (10-14) moderate anxiety, (15-21) severe anxiety PHQ-9: 05/15/2023 01/05/2024 12/03/2024 PHQ-9 Score 15 13 9 (0-4) minimal depression, (5-9) mild depression, (10-14) moderate depression, (15-19) moderately severe depression, (20-27) severe depression Diagnostic Studies: Relevant Imaging: MRI Spine Report MRI LUMBAR SPINE WO/W IVCON Exam End: 08/31/2024 2:51 PM (Final result) Narrative: * * *Final Report* * * DATE OF EXAM: Aug 31 2024 2:43PM [facility] [id number] - MRI LUMBAR SPINE WO/W IVCON / PROCEDURE REASON: Radiculopathy of lumbar region * * * * Physician Interpretation * * * * EXAMINATION: MRI LUMBAR SPINE WO/W IVCON CLINICAL HISTORY: Radiculopathy of lumbar region, status post L4-L5 fusion 10/2023 TECHNIQUE: Routine lumbosacral spine MR protocol without gadolinium. MQ: [id number] COMPARISON: Same day CT lumbar spine, 07/24/2023 MRI lumbar spine RESULT: Postoperative change: There is redemonstration of postoperative findings related to L4-L5 decompressive laminectomy and posterior fusion with transpedicular screws and vertical fusion rods, with associated susceptibility. Counting reference: Lumbosacral junction. For the purposes of this report, L4-5 is considered the level of the iliac crest and assume there are 5 lumbar-type vertebrae. Anatomic variant: None. Localizer images: Multiple left greater than right parapelvic cysts. Alignment: Alignment is anatomic. Normal lordosis. Minimal grade 1 anterolisthesis of L4 and L5. Bone marrow signal/fracture: No evidence of pathologic marrow infiltration. No evidence of prior fracture. Vertebral body heights are maintained. Mild disc space height loss at L2-L5 sequential levels and mild to moderate disc height loss at L5-S1. T11 vertebral body hemangioma which is partially imaged. Conus: The conus is within normal limits of signal intensity and morphology. Trace enhancement of the visualized nerve roots beyond the conus, notably the bilateral L4-S1 nerve roots, possibly postsurgical. Paraspinal soft tissues: Ill-defined edema and enhancing soft tissue within the posterior paraspinal subcutaneous tissues adjacent to the surgical bed, with additional intramuscular paraspinal edema spanning inferiorly from L4-S1. No organized collections. Lower thoracic spine: Visualized lower thoracic canal and foramina are patent. L1-L2: Canal and foramina are patent. L2-L3: Canal and foramina are patent. Broad posterior disc bulge and mild facet arthropathy. L3-L4: Posterior disc bulge with facet/ligamentous hypertrophy resulting in mild to moderate spinal canal stenosis, slightly progressed. There is no neural foraminal narrowing. L4-L5: Spinal canal is decompressed and patent. There is mild bilateral neural foraminal narrowing likely due to posterior disc uncovering and diffuse disc bulge as well as facet arthropathy L5-S1: Posterior disc bulge slightly eccentric to the left. This along with facet/ligament hypertrophy and diffuse disc bulge slightly eccentric to the right resulting in partial effacement of the right subarticular zone and contact of the right greater than left S1 descending nerve roots, mild left and mild to moderate right neural foraminal narrowing. No canal stenosis Sacrum and iliac wings: There is an S1 intraosseous hemangioma. The visualized sacrum and iliac wings are otherwise within normal limits. Impression: IMPRESSION: Postoperative changes with decompressive laminectomy and fusion L4-L5. Edema and heterogeneous enhancing tissue in the paraspinal subcutaneous tissues, likely postoperative. No organized collection.. Multilevel degenerative changes of lumbar spine, as detailed. Anatomic Lumbar Variant: None. L4-5 is considered the level of the iliac crest and assume there are 5 lumbar-type vertebrae. Fiberglass Model Maker: DESTIN Transcribe Date/Time: Aug 31 2024 3:10P Dictated by : WILLIAM CARNEY DO This examination was interpreted and the report reviewed and electronically signed by: LUCILA PICKENS MD on Aug 31 2024 3:48PM EST CT Lumbar 08/2024 RESULT: Counting reference: Lumbosacral junction. For the purposes of this report, L4-5 is considered the level of the iliac crest and assume there are 5 lumbar-type vertebrae. Anatomic variant: None. Postoperative change: There are postoperative findings related to decompressive laminectomy at L4-5 and posterior fusion with transpedicular screws and vertical fusion rods at L4-5. There is subtle lucency around the left L5 transpedicular screw, which may represent loosening. The hardware is intact without fracture. Poultry Scientist (topogram) images: No significant findings. Alignment: There is minimal grade 1 anterolisthesis of L4 on L5. There is minimal retrolisthesis of L2 on L3. There is mild degenerative loss of interval disc space height at L1-L2, L2-3 and L5-S1 with vacuum disc phenomena at L5-S1 and mild degenerative loss at L4-5. Bone marrow /fracture: There is a intraosseous hemangioma in the T11 vertebral body. No evidence of a lytic or blastic process in the visualized spine. No evidence of acute or chronic fracture. Paraspinal soft tissues: The paraspinal soft tissues planes are maintained. Lower thoracic spine: The visualized lower thoracic bony canal and foramina are patent. L1-L2: Canal and foramina are patent. L2-L3: Canal and foramina are patent L3-L4: There is mild diffuse disc bulge and ligamentum flavum thickening resulting in at least mild spinal canal stenosis. There is no significant neural foraminal narrowing. L4-L5: The spinal canal is decompressed and appears patent. There is questionable mild bilateral neural foraminal narrowing, secondary to mild facet arthropathy and mild diffuse disc bulge. L5-S1: There is mild asymmetric diffuse disc bulge resulting in partial effacement of the right subarticular zone, and at least mild left and mild to moderate right neural foraminal narrowing. Sacrum and iliac wings: There is an intraosseous hemangioma in the mid aspect of the L1 sacrum. The visualized sacrum and iliac wings are otherwise within normal limits. IMPRESSION: Postoperative changes and multilevel degenerative changes of the lumbar spine, as detailed. Subtle lucency around the left L5 transpedicular screw, which may represent loosening. The hardware is intact without fracture. Anatomic Lumbar Variant: None. L4-5 is considered the level of the iliac crest and assume there are 5 lumbar-type vertebrae X-ray Lumbar 07/2024 FINDINGS: Postsurgical changes of L4-5 posterior fusion. Stable alignment. Vertebral body heights are maintained IMPRESSION: L4-5 fusion. X-ray Lumbar 04/2024 RESULT: L4-5 posterior spinal hardware is similar to prior. Stable mild lucency adjacent to the right L4 screw and left L5 screw. Lumbar vertebrae demonstrate normal height. Grade 1 retrolisthesis L2-3 and L3-4 and grade 1 anterolisthesis L4-5, unchanged. Disc space narrowing L5-S1. Scattered facet arthrosis. Scattered osteophytes. Right upper quadrant clips. Counting reference: Lumbosacral junction. For the purposes of this report, L4-5 is considered the level of the iliac crest and assume there are 5 lumbar-type vertebrae. Anatomic variant: None IMPRESSION: Stable mild lucency adjacent to the right L4 screw and left L5 screw. Electrodiagnostic Study (EMG): None Recent Labs: Creatinine Date Value Ref Range Status 08/11/2024 0.62 0.58 - 0.96 mg/dL Final eGFR Date Value Ref Range Status 04/22/2017 >60 >60mL/min/1.73m2 Final Comment: If the patient is , multiply the result by 1.210. No results found for: PCGLUCOSE Current Medications, Past Medical History, Past Surgical History, Family History, Social History and Review of Systems: On today's date, noted above, I have confirmed and edited as necessary, the PFSH and ROS obtained by others. Physical Exam: 12/03/24 0903 Pulse: 68 Resp: 17 SpO2: 99% General: Well appearing, well dressed Mental Status: Alert and Oriented x3. Speech is clear. Mood & Affect: Even Skin: Skin color, texture, turgor normal, no suspicious rashes or lesions HEENT: Pupils equal, round, reactive to light. Not pinpoint. Pulmonary: Breathing easily without tachypnea or bradypnea. Cardiac: No LE edema Abdomen: not distended Ambulation: Gait is normal. Neuro/Musculoskeletal: Lumbar Spine: flexion (normal 45): Painful, particularly in the upper lumbar region. extension (normal 25): Mild discomfort, not significant pain. Lateral Flexion Right (normal 25): Pain in the midline. Lateral Flexion Left (normal 25): Pain in the midline. Extension-Rotation Right: Pain in the midline. Extension-Rotation Left: Pain in the midline. Facet Palpation: Right Tender ; Left Tender Facet Loading: Right Tender ; Left Tender Straight Leg Raise: Right Negative; Left Negative Palpation: Tenderness noted, particularly in the upper lumbar region. Sacroiliac Joint: Thigh Thrust Test: Right Positive; Left Positive SOWMYA/Saurabh's Test (Flexion Abduction External Rotation): Right Positive; Left Positive Gaenselen's Test: Right Positive; Left Positive Lower Extremity: +Motor Strength Iliopsoas: 5/5 and 5/5 Quadriceps: 5/5 and 5/5 Hamstrings: 5/5 and 5/5 Ankle Dorsiflexion: 5/5 and 5/5 Ankle Plantarflexion: 5/5 and 5/5 +Reflexes Ankle (S1): Left: 2-3+ Right: 2-3+ Knee (L4): Left: 2-3+ Right: 2-3+ +Sensory Exam Right LE: Intact Left LE: Intact +ng bilaterally IMPRESSION: 74 year old female presents with complaint(s) of bilateral axial low back pain associated with leg weakness and balance impairment. Her greatest concern is regarding subjective lower extremity weakness and balance impairment. She clearly has gluteal weakness, and I recommended return to PT to focus on gluteal strengthening and balance. She does have brisk LE reflexes and positive ng bilaterally, we will obtain a cervical MRI to further evaluate balance impairment and rule out cervical myelopathy. Regarding her low back pain, she has significant facet disease and concern for pseudoarthrosis at L5 in addition to physical exam findings suggestive of sacroiliitis. She was offered bilateral SIJ injections to which she is agreeable. Can consider L5-S1 MBB/RFA if insufficient relief. Diagnoses: (M48.02) Spinal stenosis of cervical region (primary encounter diagnosis) (M50.30) Degenerative disc disease, cervical (R26.89) Impairment of balance (M96.1) Post laminectomy syndrome (M46.1) Sacroiliitis PLAN: Brent Mosqueda would benefit from the following to reach personal goals for decreasing pain, improving function and work participation, and/or improving quality of life: Medications: None Interventional Procedures: Sacroiliac Joint Injection (Therapeutic, with steroids) under fluoroscopic guidance BILATERAL SIDES at N/A Restaurant Management Internship Needed: Joint Injection - NO (Exception: SI Joint - YES) Anticoagulant - Hold Needed: NO HOLD REQUIRED FOR THIS PROCEDURE Anticoagulant - Currently Taking: None Allergies (relevant): None Scheduling - Mobility (Can Patient independently transfer on/off an OR or Procedure table?): YES (May schedule at any location) Scheduling - Additional Info: XANAX Prescribed - Needs to arrive 45 min prior to procedure; No driving 24 hours after injection; Bring to procedure (do not take in advance) Studies: X-ray: Cervical Spine MRI: Cervical Spine Functional Caodaism: Chiropractic Consultation Acupuncture Consultation (Chiropractic) Physical Therapy Consultation (Land-Based) Referrals: No additional considerations at present Follow-up: after injection and MRI Depending on response to the above plan, consider: Lumbar MBB Patient Education, Compliance and Clinic Policies Reviewed and/or Discussed Today: None Attribution: In addition to reviewing the information noted above, some elements copied from my most recent clinical note(s), including the physical exam (completed in entirety today), and the impression and plan sections, have been updated where appropriate. All reflect current medical decision making from today's date. Zi Stanton DO Pain Management [facility] documented in this encounter [facility] 11-25-2024 Note HNO ID: [id number] Author: ZI STANTON DO Service: ? Author Type: Physician Type: Progress Notes Filed: 12/03/2024 13:08 Note Text: [facility] Today's Date: 12/03/2024 Name: Brent Mosqueda : 1950 Purpose: New Patient Consultation Chief complaint: Radiculopathy, lumbar region Referring Clinician: Stephen Rizo DO Pertinent Past Medical History: Fibromyalgia, PVC, Chronic gastritis, Spinal stenosis of lumbar, MERLYN, MDD, Pertinent Past Surgeries: Spinal fusion L4 and L5 (Dr. Rizo), Foot surgery (Right), Ankle surgery (Left) x3, Pertinent Social History: None History of Present Illness (HPI): 11/25/2024 - Initial HPI (Obtained by Zi Stanton D.O.). Chronic Low Back Pain and Bilateral Leg Pain: - Predominantly left-sided low back pain, occasionally on the right. - Pain radiates down the anterior aspect of both legs, primarily to the knees; occasionally extends further. - Describes leg pain as intense rather than sharp. - Aggravated by bending, vacuuming, and carpet cleaning; alleviated by sitting. - Denies sciatic pain, numbness, or tingling in the legs. - Denies bowel or bladder incontinence. - Reports significant weakness in the legs, causing balance issues and difficulty walking. - Describes balance issues as feeling wobbly and drunk when walking. - Balance issues and leg weakness began before surgery in October of last year. - Denies neck pain, numbness, or tingling in the neck or arms. - Denies improvement in pain or balance issues after surgery. - Denies improvement in leg pain after previous physical therapy sessions. - Reports a history of ankle fusions, possibly affecting balance. Current Pain Medications: Neuropathics: Cymbalta 60mg, Lyrica 75mg NSAIDS: Motrin 600mg Muscle Relaxants: Topicals: Other Prescription or OTC Pain Medications: Opioids (when applicable): Anti-depressants or Mood-Stabilizers: None Anti-Coagulants: None Therapies Attended (Current or Most Recent): Physical Therapy 4 visits, treatment dates between 06/04/2024 and 06/29/2024 12/03/2024 AG SPINE COMBINATION Questionnaire GREENLIGHT Completed Date 12/03/2024 Questionnaire Opiod Risk Tool Completed Date 12/03/2024 Greenlight Questionnaire GREENLIGHT Completed Date 12/03/2024 Opioid Risk Tool Opiod Risk Tool Date Completed 12/03/2024 MERLYN-7 Anxiety Score 9 Completed Date 12/03/2024 PHQ9P Score 9 Completed Date 12/03/2024 (All drug screens are appropriate unless indicated otherwise) Treatment History: PAIN PROCEDURES: DATE PROCEDURE IMPROVEMENT 09/23/2024 TFESI L3/4 0% MEDICATIONS Taken TO DATE (for the chief complaint(s)): Neuropathics: Lyrica (Prebabalin), Cymbalta (Duloxetine), Effexor (Venlafaxine) NSAIDS: Motrin (Ibuprofen), Relafen (Nabumetone) Muscle Relaxants: Zanaflex (Tizanidine) Topicals: None Other Prescription or OTC Pain Medications: None Opioids: Oxycodone (eg Percocet) Data Reviewed Today: Allergies: ALLERGIES No Known Allergies Social History Tobacco Use Smoking status: Never Passive exposure: Never Smokeless tobacco: Never Vaping Use Vaping status: Never Used Substance Use Topics Alcohol use: Not Currently Comment: rare occassion Drug use: Never 10/08/2024 12/02/2024 INTAKE PAIN ASSESSMENT Are you having pain associated with your visit today? Yes, Provider notified Yes, Provider notified Pain Level 5 Pain Location Back-Lower Back-Lower Description Aching;Dull Aching Duration Units Months Frequency Intermittent Intervention/Comfort measure Medication;Relaxation;Positionin g Compliance: PDMP website checked and validated on 12/03/2024 by All prescriptions have been APPROPRIATELY filled. No suspicious activity was identified. Risk Assessment: MERLYN-7: 12/03/2024 MERLYN - 7 SCORES Score 9 (0-4) minimal anxiety, (5-9) mild anxiety, (10-14) moderate anxiety, (15-21) severe anxiety PHQ-9: 05/15/2023 01/05/2024 12/03/2024 PHQ-9 Score 15 13 9 (0-4) minimal depression, (5-9) mild depression, (10-14) moderate depression, (15-19) moderately severe depression, (20-27) severe depression Diagnostic Studies: Relevant Imaging: MRI Spine Report MRI LUMBAR SPINE WO/W IVCON Exam End: 08/31/2024 2:51 PM (Final result) Narrative: * * *Final Report* * * DATE OF EXAM: Aug 31 2024 2:43PM [facility] [id number] - MRI LUMBAR SPINE WO/W IVCON / PROCEDURE REASON: Radiculopathy of lumbar region * * * * Physician Interpretation * * * * EXAMINATION: MRI LUMBAR SPINE WO/W IVCON CLINICAL HISTORY: Radiculopathy of lumbar region, status post L4-L5 fusion 10/2023 TECHNIQUE: Routine lumbosacral spine MR protocol without gadolinium. MQ: MRLSP (more content not included)... [facility] 10-25-2024 Telephone encounter Note Patient contacted the office stating she is not able to be seen by Pain Management until 12/03/2024 and was inqu[address] if Dr. Rizo had any further recommendations. I educated that I would discuss this with Dr. Rizo and follow-up as able. She was very appreciative. BROOKLYN Dalton [facility] 10-25-2024 Miscellaneous Notes Patient contacted the office stating she is not able to be seen by Pain Management until 12/03/2024 and was inquiring if Dr. Rizo had any further recommendations. I educated that I would discuss this with Dr. Rizo and follow-up as able. She was very appreciative. BROOKLYN Dalton documented in this encounter [facility] 10-25-2024 Telephone encounter Note Brent Mosqueda has been scheduled for an Office visit on 12/03 at 9am , with Dr Stanton at [address], [place] [address]. Aisha Rosa [facility] 10-25-2024 Miscellaneous Notes Brent Mosqueda has been scheduled for an Office visit on 12/03 at 9am , with Dr Stanton at [address] [facility] [address], [place] [address]. Aisha Rosa LVM for for the below information This patient already had the injection that Dr Rizo ordered- if she wants another injection she needs to be scheduled as a new patient with our department - it looks like Dr Swanson office already told her that Saritha Bailon documented in this encounter [facility] 10-25-2024 Telephone encounter Note LVM for for the below information This patient already had the injection that Dr Rizo ordered- if she wants another injection she needs to be scheduled as a new patient with our department - it looks like Dr Swanson office already told her that Saritha Bailon [facility] 10-21-2024 Telephone encounter Note Patient called in stated she called PM for inj and they were supposed to call patient back to schedule and patient has not heard from them. I informed patient our office is unable to schedule for that department she would have to call the PM she went o for previous inj and schedule with them [facility] 10-21-2024 Miscellaneous Notes Patient called in stated she called PM for inj and they were supposed to call patient back to schedule and patient has not heard from them. I informed patient our office is unable to schedule for that department she would have to call the PM she went o for previous inj and schedule with them documented in this encounter [facility] 10-12-2024 Telephone encounter Note Pharmacy faxed requesting the following refill Refill(s) Requested: Requested Prescriptions Pending Prescriptions Disp Refills metoprolol succinate ER (TOPROL XL) 25 mg 24 hr tablet [Pharmacy Med Name: METOPROLOL SUCCINATE ER 25MG TB24] 90 tablet 0 Sig: TAKE 1 TABLET BY MOUTH EVERY AFTERNOON ALLERGIES No Known Allergies (home) [phone] (cell) Last Office Visit Date: 06/21/2024 Last Distance Health Visit: Visit date not found Future Appointment: Visit date not found The patients preferred pharmacy has been captured for this encounter? yes Request is for script(s) to be escript to pharmacy. Kavin Frank LPN [facility] 10-12-2024 Miscellaneous Notes Pharmacy faxed requesting the following refill Refill(s) Requested: Requested Prescriptions Pending Prescriptions Disp Refills metoprolol succinate ER (TOPROL XL) 25 mg 24 hr tablet [Pharmacy Med Name: METOPROLOL SUCCINATE ER 25MG TB24] 90 tablet 0 Sig: TAKE 1 TABLET BY MOUTH EVERY AFTERNOON ALLERGIES No Known Allergies (home) [phone] (cell) Last Office Visit Date: 06/21/2024 Last Distance Health Visit: Visit date not found Future Appointment: Visit date not found The patients preferred pharmacy has been captured for this encounter? yes Request is for script(s) to be escript to pharmacy. Kavin Frank LPN documented in this encounter [facility] 10-08-2024 History of Presen t illness Narrative Images from the original note were not included. Stephen Rizo DO [facility] - Orthopedic Spine Surgeon [address], [facility] [address] [address] [place] [address] Phone: [phone] FAX: [phone] SPINE SURGERY OUTPATIENT CONSULT SERVICE DATE: 10/08/2024 LAST OFFICE VISIT: 09/07/2024 DATE OF : 1950 REFERRING PROVIDER: No referring provider defined for this encounter. CHIEF COMPLAINT: Low back pain, bilateral leg pain HISTORY OF PRESENT ILLNESS Brent Mosqueda is a 74 year old female presenting alone. She has a past medical history of fibromyalgia, arthritis, palpitations, lumbar radiculopathy and hyperlipidemia. Today she reports that her symptoms are the same as previous visit. She continued to have bad low back pain. She stated the back pain was only present when she was up standing and walking. She noted her pain was completely gone when sitting. She reported pain in her anterior thighs. She endorsed weakness in her bilateral lower extremities and stated she felt weak and cannot get up off the floor. She reported physical therapy made her pain significantly worse. CT scan of the lumbar spine displayed possible pseudoarthrosis with loosening of the L5 screws bilaterally. MRI of the lumbar spine displayed mild to moderate canal stenosis L3-4. It was discussed I believed her low back pain could be caused of a pseudoarthrosis in her lumbar spine. It was recommended for pain management consult for an injection at L3-4 and follow-up 2 weeks after the injection. Today she reports that her symptoms are the same. States that the injection gave her very mild relief. She states that she did not notice a huge change in her pain from the injection. Her pain still located on her bilateral low back as a deep pressure which extends down into her legs. This pain does not go past her knees. She presents for evaluation and plan of care. 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 Rizo REMOVAL GALLBLADDER FAMILY HISTORY Problem Relation Age of Onset other (multiple myeloma) Mother COPD Father No Known Problems Sister No Known Problems Brother No Known Problems Brother Colon Cancer No Family History Social History Tobacco Use Smoking status: Never Passive exposure: Never Smokeless tobacco: Never Vaping Use Vaping status: Never Used Substance Use Topics Alcohol use: Not Currently Comment: rare occassion Drug use: Never ALLERGIES No Known Allergies MEDICATIONS: TYSHAWN, B.LONGUM, 10 million cell cap TAKE ONE CAPSULE BY MOUTH EVERY DAY pregabalin (LYRICA) 75 mg capsule Take 75 mg by mouth two times a day. DULoxetine (CYMBALTA) 60 mg capsule TAKE ONE CAPSULE BY MOUTH EVERY DAY hydrOXYzine HCl (ATARAX) 25 mg tablet TAKE ONE TABLET BY MOUTH THREE TIMES A DAY NEEDED atorvastatin (LIPITOR) 20 mg tablet Take 1 tablet by mouth once daily. (Patient not taking: Reported on 09/23/2024) Bifidobacterium Infantis (TYSHAWN B.INFANTIS,) 4 mg cap Take 1 capsule by mouth once daily. metoprolol succinate ER (TOPROL XL) 25 mg 24 hr tablet Take 1 tablet by mouth every afternoon. ascorbic acid, vitamin C, (VITAMIN C) 500 mg tablet Take 1 tablet by mouth once daily. vit C/E/Zn/coppr/lutein/zeaxan (PRESERVISION AREDS-2 ORAL) Take 1 tablet by mouth twice daily. REVIEW OF SYSTEMS Review of Systems OBJECTIVE: There were no vitals taken for this visit. PHYSICAL EXAM GENERAL APPEARANCE: Well nourished, well developed, and no apparent distress. NEURO PSYCH: Patient oriented to person, place, and time. Mood pleasant. Benign affect. CARDIOVASCULAR: Palpable pulses. No edema noted. No varicosities. SKIN: Head, neck, trunk, and extremities dry, intact and without lesions. LYMPHATICS: No palpable nodes in axillae areas. Groin exam deferred MUSCULOSKELETAL PALPATION: SPINOUS PROCESS: No pain. PARASPINALS: No pain. MUSCLE TONE and BULK: Symmetrical in the lower extremities. MOTOR: Left Right Lower Extremity Hip Flexors 5/5 5/5 Quadriceps 5/5 5/5 Dorsiflexion 5/5 5/5 EHL/EDC 5/5 5/5 Plantar Flexion 5/5 5/5 SENSORY: Sensation intact to light touch L1-S1 GAIT: Able to perform toe and heel walk. Able to perform tandem gait. LONG TRACT SIGNS: No clonus. REFLEXES: symmetric non-brisk ASSESSMENT/PLAN Brent Mosqueda is a 74-year-old female with low back pain and leg pain - I had a long discussion today with the patient. My differential for the patient's low back pain is pseudoarthrosis of her lumbar spine versus possible sacroiliitis. I discussed with the patient that since she is attempted conservative treatments we could proceed with a low back surgery where we would remove the old hardware and place new hardware with more bone graft. Recommend injection into the SI joint prior to proceeding with this since it is less invasive. Consult was placed today for an SI joint injection. She will follow-up with me 2 weeks after the SI joint injections. The following portions of the patient's history were reviewed, confirmed, and updated as necessary: allergies, current medications, past family history, past medical history, past social history, past surgical history, problem list, HPI, and ROS obtained by others. Some elements may be copied from a previous office note and have been reviewed/updated where appropriate. All portions reflect current medical decision making from today. The clinical and radiographic findings as well as the risks, benefits and alternatives of treatment have been reviewed in detail with the patient. Advised to call the office if symptoms worsen or new symptoms develop. Patient expressed understanding and is in agreement with plan. Stephen Rizo DO This note was partially generated using [employer] voice recognition system, and there may be some incorrect words, spellings, and punctuation that were not noted in checking the note before saving. documented in this encounter [facility] 10-08-2024 Note HNO ID: [id number] Author: STEPHEN RIZO DO Service: ? Author Type: Physician Type: Progress Notes Filed: 10/08/2024 13:16 Note Text: Stephen Rizo DO [facility] - Orthopedic Spine Surgeon [address] [place], [facility] [address] [place] [id number] Phone: [phone] FAX: [phone] SPINE SURGERY OUTPATIENT CONSULT SERVICE DATE: 10/08/2024 LAST OFFICE VISIT: 09/07/2024 DATE OF : 1950 REFERRING PROVIDER: No referring provider defined for this encounter. CHIEF COMPLAINT: Low back pain, bilateral leg pain HISTORY OF PRESENT ILLNESS Brent Mosqueda is a 74 year old female presenting alone. She has a past medical history of fibromyalgia, arthritis, palpitations, lumbar radiculopathy and hyperlipidemia. Today she reports that her symptoms are the same as previous visit. She continued to have bad low back pain. She stated the back pain was only present when she was up standing and walking. She noted her pain was completely gone when sitting. She reported pain in her anterior thighs. She endorsed weakness in her bilateral lower extremities and stated she felt weak and cannot get up off the floor. She reported physical therapy made her pain significantly worse. CT scan of the lumbar spine displayed possible pseudoarthrosis with loosening of the L5 screws bilaterally. MRI of the lumbar spine displayed mild to moderate canal stenosis L3-4. It was discussed I believed her low back pain could be caused of a pseudoarthrosis in her lumbar spine. It was recommended for pain management consult for an injection at L3-4 and follow-up 2 weeks after the injection. Today she reports that her symptoms are the same. States that the injection gave her very mild relief. She states that she did not notice a huge change in her pain from the injection. Her pain still located on her bilateral low back as a deep pressure which extends down into her legs. This pain does not go past her knees. She presents for evaluation and plan of care. 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 Rizo REMOVAL GALLBLADDER FAMILY HISTORY Problem Relation Age of Onset other (multiple myeloma) Mother COPD Father No Known Problems Sister No Known Problems Brother No Known Problems Brother Colon Cancer No Family History Social History Tobacco Use Smoking status: Never Passive exposure: Never Smokeless tobacco: Never Vaping Use Vaping status: Never Used Substance Use Topics Alcohol use: Not Currently Comment: rare occassion Drug use: Never ALLERGIES No Known Allergies MEDICATIONS: CECILIA VILLAGRAN, 10 million cell cap TAKE ONE CAPSULE BY MOUTH EVERY DAY pregabalin (LYRICA) 75 mg capsule Take 75 mg by mouth two times a day. DULoxetine (CYMBALTA) 60 mg capsule TAKE ONE CAPSULE BY MOUTH EVERY DAY hydrOXYzine HCl (ATARAX) 25 mg tablet TAKE ONE TABLET BY MOUTH THREE TIMES A DAY NEEDED atorvastatin (LIPITOR) 20 mg tablet Take 1 tablet by mouth once daily. (Patient not taking: Reported on 09/23/2024) Bifidobacterium Infantis (SKINNY VILLAGRAN,) 4 mg cap Take 1 capsule by mouth once daily. metoprolol succinate ER (TOPROL XL) 25 mg 24 hr tablet Take 1 tablet by mouth every afternoon. ascorbic acid, vitamin C, (VITAMIN C) 500 mg tablet Take 1 tablet by mouth once daily. vit C/E/Zn/coppr/lutein/zeaxan (PRESERVISION AREDS-2 ORAL) Take 1 tablet by mouth twice daily. REVIEW OF SYSTEMS Review of Systems OBJECTIVE: There were no vitals taken for this visit. PHYSICAL EXAM GENERAL APPEARANCE: Well nourished, well developed, and no apparent distress. NEURO PSYCH: Patient oriented to person, place, and time. Mood pleasant. Benign affect. CARDIOVASCULAR: Palpable pulses. No edema noted. No varicosities. SKIN: Head, neck, trunk, and extremities dry, intact and without lesions. LYMPHATICS: No palpable nodes in axilla (more content not included)... [facility] 09-27-2024 Telephone encounter Note Patient phones requesting refills as follows: Requested Prescriptions Pending Prescriptions Disp Refills TYSHAWN, B.LONGUM, 10 million cell cap [Pharmacy Med Name: ALIGN 10MG CAPS] 42 capsule 1 Sig: TAKE ONE CAPSULE BY MOUTH EVERY DAY Please review and advise. Leann Ling MA [facility] 09-27-2024 Miscellaneous Notes Patient phones requesting refills as follows: Requested Prescriptions Pending Prescriptions Disp Refills ALIGN, B.LONGUM, 10 million cell cap [Pharmacy Med Name: ALIGN 10MG CAPS] 42 capsule 1 Sig: TAKE ONE CAPSULE BY MOUTH EVERY DAY Please review and advise. Leann Ling MA documented in this encounter [facility] 09-24-2024 Telephone encounter Note Attempted to contact patient to follow up from procedure. Left a voicemail asking patient to return call if they have any questions or concerns. Allison Fairchild LPN [facility] 09-24-2024 Miscellaneous Notes Attempted to contact patient to follow up from procedure. Left a voicemail asking patient to return call if they have any questions or concerns. Allison Fairchild LPN documented in this encounter [facility] 09-23-2024 History of Presen t illness Narrative Order has been placed in the patient's chart with the following parameters for discharge from the physician: Patient is alert and oriented Vitals: Diastolic/Systolic +/- 20mmHg Respirations: 12-18 Pulse: 60-100 SpO2 is greater than or equal to 90% Patient has no nausea or vomiting Patient has no dizziness Pain level is +/- 2 from initial evaluation Dressing, dry and intact with no evidence of bleeding Criteria has been met, patient is okay to be discharged per the physician. Physician has gone in and evaluated the patient. Dressing dry and intact. No drainage noted. The patient denies nausea, numbness, tingling, weakness, shortness of breath, dizziness, or headache. Pain level 0/10. Vital signs within normal limits. Patient denied needing walked out by clinical staff and denied needing a wheelchair. Patient given discharge instructions and sent to transportation via ambulatory method. Patient left in good condition. Review of Systems Review of Systems Constitutional: Positive for activity change. Negative for chills, fever and unexpected weight change. Gastrointestinal: Negative for bowel retention or incontinence Genitourinary: Negative for difficulty urinating. Negative for bladder retention or incontinence Musculoskeletal: Positive for arthralgias, back pain, gait problem, joint swelling, neck pain and neck stiffness. Negative for myalgias. Neurological: Positive for weakness. Negative for numbness and headaches. Psychiatric/Behavioral: Positive for dysphoric mood. Negative for sleep disturbance and suicidal ideas. The patient is nervous/anxious. No active plans, not in treatment Procedure to be performed: L3/L4 Bilateral Transforaminal Epidural Steroid Injection Patient was wheeled on stretcher from pre op bay to procedure room and assisted onto the procedure tablePatient s procedure was performed in an [facility] Procedure room. Pause completed at each level by provider to verify correct level and laterality placement Pressure was applied to patient s injection site(s) and bleeding was minimal. Patient had no complaint of shortness of breath, dizziness, headache, numbness, tingling, weakness or complications from procedure. Patient was assisted from the procedure table onto the stretcher and wheeled into a post op bay. Patient was advised a clinician will be to obtain another set of vitals. Time Out: 1353 Confirmed patient name, date of , procedure site, laterality, and allergies Procedure Start: 1356 Procedure End: 1404 [facility] Date: 09/23/2024 Patient name: Brent Mosqueda Physician performing procedure: Zi Stanton DO Diagnosis: (M54.16) Lumbar radiculopathy (primary encounter diagnosis) (M54.16) Radiculopathy, lumbar region Procedure: Epidural Steroid Injection - Transforaminal Approach (TFESI) under fluoroscopic guidance BILATERAL SIDES at L3-4 Injectate: A total of 4 ml volume was injected The injectate consisted of: 2 ml of Dexamethasone (10mg/ml), 2cc lidocaine 1% . Each site received equal volumes of this injectate. Comments: None Improvement after today's procedure: as per nursing report HPI: Brent Mosqueda is an 74 year old FEMALE who presents today, in pain, for the procedure noted above. Review of Systems: Pertinent Positives: MSK: pain in the region being treated Neuro: weakness or numbness in the region being treated Skin: Negative (No itching) Eyes: Negative (No blurred or double vision) Respiratory: Negative (No Cough, [id number], Dyspnea on exertion, wheezing) Cardiovascular: Negative (No Chest Pain, Tightness, Pressure, Palpitations) Gastrointestinal: Negative (No Abdominal pain, Nausea, Vomiting, Constipation, Diarrhea) Genitourinary: Negative (No dysuria) Hematologic: Negative (No bleeding, bruising) OB: is Denied or Not Applicable Endocrine: Negative (No hot/cold intolerance) Psychiatric: Negative (No depression, anxiety or suicidal ideation) PAST MEDICAL HISTORY Diagnosis Date Arthritis Bug bites scratched open mosquito bites Contact lens/glasses fitting right eye contact for reading Fibromyalgia PCP follows History of cardiovascular stress test normal Hyperlipemia Lumbar radiculopathy 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 Rizo [employer] G[employer] FAMILY HISTORY Problem Relation Age of Onset other (multiple myeloma) Mother COPD Father No Known Problems Sister No Known Problems Brother No Known Problems Brother Colon Cancer No Family History Social History Tobacco Use Smoking status: Never Passive exposure: Never Smokeless tobacco: Never Vaping Use Vaping status: Never Used Substance Use Topics Alcohol use: Not Currently Comment: rare occassion Drug use: Never Current Outpatient Medications on File Prior to Visit Medication Sig pregabalin (LYRICA) 75 mg capsule Take 75 mg by mouth two times a day. DULoxetine (CYMBALTA) 60 mg capsule TAKE ONE CAPSULE BY MOUTH EVERY DAY hydrOXYzine HCl (ATARAX) 25 mg tablet TAKE ONE TABLET BY MOUTH THREE TIMES A DAY NEEDED atorvastatin (LIPITOR) 20 mg tablet Take 1 tablet by mouth once daily. Bifidobacterium Infantis (ALIGN, B.INFANTIS,) 4 mg cap Take 1 capsule by mouth once daily. metoprolol succinate ER (TOPROL XL) 25 mg 24 hr tablet Take 1 tablet by mouth every afternoon. ascorbic acid, vitamin C, (VITAMIN C) 500 mg tablet Take 1 tablet by mouth once daily. vit C/E/Zn/coppr/lutein/zeaxan (PRESERVISION AREDS-2 ORAL) Take 1 tablet by mouth twice daily. No current facility-administered medications on file prior to visit. Objective Exam: Vitals: As per nursing documentation Constitutional: Normal Appearance, Oriented to Time, Place and Person Head: No lacerations, no external signs of trauma Eyes: Conjunctiva clear. No discharge from the eyes Cardiovascular: Appears well-perfused Pulmonary: Non-labored respirations Abdominal: Non-distended Skin: No visible rashes or ecchymosis Psychiatric: Mood appropriate for given condition Neurological: Gross movements are limited by pain, but otherwise unremarkable Data Reviewed: Nursing note and vitals reviewed. Additional imaging reviewed as appropriate Assessment and Plan: As noted above Spring protocol documentation / Pre-Procedure Checklist: Consent: Obtained in writing prior to procedure I had a nice discussion with the patient today about their current pain and the pathology that could be causing it We discussed different treatment options, including risks, benefits and alternatives. We agreed to proceed as previously discussed, or the plan was modified in accordance with the comments noted above Unless stated otherwise in the procedure note, the risks include but are not limited to infection, allergic reaction, increased pain, lack of therapeutic benefit, steroid reaction, nerve damage, paralysis, stroke, epidural hematoma, syncope, headache, respiratory or cardiac arrest, pneumothorax, and scar formation Once the plan was agreed upon, the patient gave written consent to proceed and was transported into the procedure room Surgical/Procedure pause or Time Out : Time Out was led by the physician in the procedure room, with the patient and all staff present and participating The following information was verified during the Time Out process: Patient name, patient date of , procedure site (marked), laterality, anticoagulants and allergies Procedure: The patient was prepped and draped in a sterile fashion in the prone position after informed consent was signed and all patient questions were answered including the risks, benefits, alternative treatment options, and prognosis. The risks are as mentioned above, with the exception of Pneumothorax. The above-mentioned neural foramen were sequentially injected using the following technique: The C-arm was positioned so that an oblique view of the neural foramen as noted above was visualized. The soft tissues overlying this structure were infiltrated with 2-3 cc. of 1%Lidocaine without Epinephrine. A 22 gauge, 5 inch spinal needle was inserted toward the target using a trajectory view along the fluoroscope beam. Under AP and lateral visualization, the needle was advanced, so it did not puncture dura. Biplanar projections were used to confirm position. Aspiration was confirmed to be negative for CSF and/or blood. A 1-2 cc volume of Omnipaque 300 contrast was injected at this level. The contrast was observed to flow epidural (under the pedicle). Attention was then turned to the second level mentioned above. The C-arm was positioned so that an oblique view of the neural foramen as noted above was visualized. The soft tissues overlying this structure were infiltrated with 2-3 cc. of 1%Lidocaine without Epinephrine. The same length and gauge needle mentioned above was inserted toward the target using a trajectory view along the fluoroscope beam. Under AP and lateral visualization, the needle was advanced, so it did not puncture dura. Biplanar projections were used to confirm position. Aspiration was confirmed to be negative for CSF and/or blood. A 1-2 cc volume of Omnipaque 300 contrast was injected at this level. The contrast was observed to flow epidural (under the pedicle). The above noted injectate was then administered Please see the nursing note for exact times (time out, procedure start, procedure end). After careful removal of the needle, there was minimal bleeding. The injection site was covered with appropriate sterile dressing. The patient was noted to have tolerated the procedure well and was discharged after an appropriate period of post-procedure observation. The patient was instructed to contact us if there were any complications. The patient was advised to follow-up with the requesting physician within one to two weeks or as per their requested follow-up plan. Post procedure visit summary with written instructions was offered to the patient. Zi Stanton DO Pain Management [facility] [employer]'s Name: mary Are you on a blood thinner: n If yes, is a hold required: n Last dose of blood thinner: n INR Result today: n Do you require a Lovenox bridge:n Are you a diabetic:n Are you/or could you be : n Are you taking Xanax for the procedure: n Are you currently on a steroid? n Are you currently on an antibiotic: n documented in this encounter [facility] 09-23-2024 Note HNO ID: [id number] Author: CHATA DIAZ LPN Service: ? Author Type: LICENSED NURSE Type: Progress Notes Filed: 09/23/2024 14:19 Note Text: Order has been placed in the patient's chart with the following parameters for discharge from the physician: Patient is alert and oriented Vitals: Diastolic/Systolic +/- 20mmHg Respirations: 12-18 Pulse: 60-100 SpO2 is greater than or equal to 90% Patient has no nausea or vomiting Patient has no dizziness Pain level is +/- 2 from initial evaluation Dressing, dry and intact with no evidence of bleeding Criteria has been met, patient is okay to be discharged per the physician. Physician has gone in and evaluated the patient. Dressing dry and intact. No drainage noted. The patient denies nausea, numbness, tingling, weakness, shortness of breath, dizziness, or headache. Pain level 0/10. Vital signs within normal limits. Patient denied needing walked out by clinical staff and denied needing a wheelchair. Patient given discharge instructions and sent to transportation via ambulatory method. Patient left in good condition. Review of Systems [facility] 09-23-2024 Instructions Joe ChataNAHUM - 09/23/2024 1:56 PM EDT PROCEDURE DISCHARGE INSTRUCTIONS 09/23/2024 Brent Mosqueda 1950 Physician: Zi Stanton DO Procedure: Epidural Steroid Injection: Lumbar (transforaminal/Interlaminar/Cau mendel) Post Procedure Instructions: If sedation not given, no driving for 3 hours after the procedure., Rest the day of the procedure., You may resume normal activities the day after the procedure, as tolerated., Pain should gradually subside over the next 2-3 weeks., Avoid movements that may aggravate pain., Apply cold compresses to injection site if needed., If medically acceptable, take over the counter anti-inflammatories such as ibuprofen or Aleve if needed for post procedure discomfort., No hot baths, hot tubs or hot compresses for 24 hours., and Increased pain the day after the procedure may occur. If you have any of the following signs or symptoms, please call our office at Fever and/or chills Swelling and/or drainage from injection site New pain that is different than your normal pain (other than soreness at the site of the procedure) Stiff neck Shortness of breath Severe increase in pain Motor dysfunctions, such as difficulty walking, bowel or bladder dysfunction and/or incontinence Headache that is severe, light sensitive or develops when changing positions (positional headache) Nausea and/or vomiting accompanied by headache that started 24-48 hours after the procedure If you have any emergent concerns, please call 911 or go to your local emergency room. Please also contact our office to let us know you will be seeking emergency care and why. documented in this encounter [facility] 09-23-2024 Note HNO ID: [id number] Author: FRIDA AN LPN Service: ? Author Type: LICENSED NURSE Type: Progress Notes Filed: 09/23/2024 14:19 Note Text: Review of Systems Constitutional: Positive for activity change. Negative for chills, fever and unexpected weight change. Gastrointestinal: Negative for bowel retention or incontinence Genitourinary: Negative for difficulty urinating. Negative for bladder retention or incontinence Musculoskeletal: Positive for arthralgias, back pain, gait problem, joint swelling, neck pain and neck stiffness. Negative for myalgias. Neurological: Positive for weakness. Negative for numbness and headaches. Psychiatric/Behavioral: Positive for dysphoric mood. Negative for sleep disturbance and suicidal ideas. The patient is nervous/anxious. No active plans, not in treatment [facility] 09-23-2024 Note HNO ID: [id number] Author: CYNTHIA TSANG LPN Service: ? Author Type: LICENSED NURSE Type: Progress Notes Filed: 09/27/2024 14:45 Note Text: Procedure to be performed: L3/L4 Bilateral Transforaminal Epidural Steroid Injection Patient was wheeled on stretcher from pre op bay to procedure room and assisted onto the procedure tablePatient?s procedure was performed in an [facility] Procedure room. Pause completed at each level by provider to verify correct level and laterality placement Pressure was applied to patient?s injection site(s) and bleeding was minimal. Patient had no complaint of shortness of breath, dizziness, headache, numbness, tingling, weakness or complications from procedure. Patient was assisted from the procedure table onto the stretcher and wheeled into a post op bay. Patient was advised a clinician will be to obtain another set of vitals. Time Out: 1353 Confirmed patient name, date of , procedure site, laterality, and allergies Procedure Start: 1356 Procedure End: 1404 [facility] 09-23-2024 Note HNO ID: [id number] Author: ZI STANTON DO Service: ? Author Type: Physician Type: Progress Notes Filed: 09/23/2024 14:19 Note Text: [facility] Date: 09/23/2024 Patient name: Brent Mosqueda Physician performing procedure: Zi Stanton DO Diagnosis: (M54.16) Lumbar radiculopathy (primary encounter diagnosis) (M54.16) Radiculopathy, lumbar region Procedure: Epidural Steroid Injection - Transforaminal Approach (TFESI) under fluoroscopic guidance BILATERAL SIDES at L3-4 Injectate: A total of 4 ml volume was injected The injectate consisted of: 2 ml of Dexamethasone (10mg/ml), 2cc lidocaine 1% . Each site received equal volumes of this injectate. Comments: None Improvement after today's procedure: as per nursing report HPI: Brent Mosqueda is an 74 year old FEMALE who presents today, in pain, for the procedure noted above. Review of Systems: Pertinent Positives: MSK: pain in the region being treated Neuro: weakness or numbness in the region being treated Skin: Negative (No itching) Eyes: Negative (No blurred or double vision) Respiratory: Negative (No Cough, Mbbhmhwuu-gk-jhyayh, Dyspnea on exertion, wheezing) Cardiovascular: Negative (No Chest Pain, Tightness, Pressure, Palpitations) Gastrointestinal: Negative (No Abdominal pain, Nausea, Vomiting, Constipation, Diarrhea) Genitourinary: Negative (No dysuria) Hematologic: Negative (No bleeding, bruising) OB: is Denied or Not Applicable Endocrine: Negative (No hot/cold intolerance) Psychiatric: Negative (No depression, anxiety or suicidal ideation) PAST MEDICAL HISTORY Diagnosis Date Arthritis Bug bites scratched open mosquito bites Contact lens/glasses fitting right eye contact for reading Fibromyalgia PCP follows History of cardiovascular stress test normal Hyperlipemia Lumbar radiculopathy 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 Rizo REMOVAL GALLBLADDER FAMILY HISTORY Problem Relation Age of Onset other (multiple myeloma) Mother COPD Father No Known Problems Sister No Known Problems Brother No Known Problems Brother Colon Cancer No Family History Social History Tobacco Use Smoking status: Never Passive exposure: Never Smokeless tobacco: Never Vaping Use Vaping status: Never Used Substance Use Topics Alcohol use: Not Currently Comment: rare occassion Drug use: Never Current Outpatient Medications on File Prior to Visit Medication Sig pregabalin (LYRICA) 75 mg capsule Take 75 mg by mouth two times a day. DULoxetine (CYMBALTA) 60 mg capsule TAKE ONE CAPSULE BY MOUTH EVERY DAY hydrOXYzine HCl (ATARAX) 25 mg tablet TAKE ONE TABLET BY MOUTH THREE TIMES A DAY NEEDED atorvastatin (LIPITOR) 20 mg tablet Take 1 tablet by mouth once daily. Bifidobacterium Infantis (ALIGN, B.INFANTIS,) 4 mg cap Take 1 capsule by mouth once daily. metoprolol succinate ER (TOPROL XL) 25 mg 24 hr tablet Take 1 tablet by mouth every afternoon. ascorbic acid, vitamin C, (VITAMIN C) 500 mg tablet Take 1 tablet by mouth once daily. vit C/E/Zn/coppr/lutein/zeaxan (PRESERVISION AREDS-2 ORAL) Take 1 tablet by mouth twice daily. No current facility-administered medications on file prior to visit. Objective Exam: Vitals: As per nursing documentation Constitutional: Normal Appearance, Oriented to Time, Place and Person Head: No lacerations, no external signs of trauma Eyes: Conjunctiva clear. No discharge from the eyes Cardiovascular: Appears well-perfused Pulmonary: Non-labored respirations Abdominal: Non-distended Skin: No visible rashes or ecchymosis Psychiatric: Mood appropriate for given condition Neurological: Gross movements are limited by pain, but otherwise unremarkable Data Reviewed: Nursing note and vitals reviewed. Additional imaging reviewed as appropriate Assessment and Plan: As noted above Spring protocol documentation / Pre-Procedure Checklist: Consent: Obtained in writing prior to procedure I had a nice discussion with the patient today about their current pain and the pathology that could be causing it We discussed different treatment options, including risks, benefits and alternatives. We agreed to proceed as previously discussed, or the plan was modified in accordance with the comments noted above Unless stated otherwise in the procedure note, the risks include but are not limited to infection, allergic reaction, increased pain, lack of therapeutic benefit, steroid reaction, (more content not included)... [facility] 09-23-2024 Note HNO ID: [id number] Author: FRIDA AN LPN Service: ? Author Type: LICENSED NURSE Type: Progress Notes Filed: 09/23/2024 14:19 Note Text: [employer]'s Name: mary Are you on a blood thinner: n If yes, is a hold required: n Last dose of blood thinner: n INR Result today: n Do you require a Lovenox bridge:n Are you a diabetic:n Are you/or could you be : n Are you taking Xanax for the procedure: n Are you currently on a steroid? n Are you currently on an antibiotic: n [facility] 09-07-2024 Telephone encounter Note Submitted via [employer] Reference #: [id number] [facility] 09-07-2024 Miscellaneous Notes Submitted via [employer] portal Reference #: [id number] Addended by: EBEN JONAS on: 09/07/2024 11:56 AM Modules accepted: Orders Fast Track Injection Request: Referring Surgeon: Stephen Rizo DO, Spine Surgeon Injection Requested: Bilateral L3-4 TFESI under fluoroscopic guidance Imaging reviewed: MRI lumbar Anti-Coagulants: No Relevant Allergies: NKDA Other notable: None Patient appropriate for the requested procedure. Order placed. Staff informed to assist patient with scheduling. Eben Jonas MD Received a referral from Stephen Rizo DO for patient to have Needs an injection at L3-4 Imaging- 08/31/24- Lumbar MRI Anticoag- NONE Please review and advise Elis Alvarez [facility] [address] [place] [address] P: [phone] F: [phone] documented in this encounter [facility] 09-07-2024 Note Addended by: EBEN ARIAS on: 09/07/2024 11:56 AM Modules accepted: Orders [facility] 09-07-2024 Telephone encounter Note Fast Track Injection Request: Referring Surgeon: Stephen Rizo DO, Spine Surgeon Injection Requested: Bilateral L3-4 TFESI under fluoroscopic guidance Imaging reviewed: MRI lumbar Anti-Coagulants: No Relevant Allergies: NKDA Other notable: None Patient appropriate for the requested procedure. Order placed. Staff informed to assist patient with scheduling. Eben Jonas MD [facility] 09-07-2024 Telephone encounter Note Received a referral from Stephen Rizo DO for patient to have Needs an injection at L3-4 Imaging- 08/31/24- Lumbar MRI Anticoag- NONE Please review and advise Elis Alvarez [facility] [address] [place] [address] P: [phone] F: [phone] [facility] 09-07-2024 History of Presen t illness Narrative Images from the original note were not included. Stephen Rizo DO [facility] - Orthopedic Spine Surgeon [address], [facility] [id number] [address] [place] [address] Phone: [phone] ([phone] FAX: [phone] SPINE SURGERY OUTPATIENT CONSULT SERVICE DATE: 09/07/2024 LAST OFFICE VISIT: 08/10/2024 DATE OF : 1950 REFERRING PROVIDER: No referring provider defined for this encounter. CHIEF COMPLAINT: Low back pain, bilateral leg pain SURGERY: L4-L5 posterior spinal fusion 11/20/2023 PREOPERATIVE SYMPTOMS: Severe bilateral leg pain HISTORY OF PRESENT ILLNESS Brent Mosqueda is a 74 year old female presenting alone. She has a past medical history of fibromyalgia, arthritis, palpitations, lumbar radiculopathy and hyperlipidemia. She was last evaluated in office on 08/10/2024 for follow-up. She reported worsening pain since participating in physical therapy. She noted pain started in her bilateral sides of low back with radiation to entire bilateral lower extremities, left side worse than right. She stated she felt her left leg was giving out when ambulating. Endorsed bilateral lower extremity weakness. She reported falling down two steps due to her left leg giving out. She stated she was having difficulty sleeping at night due to her leg pain. She noted the worst pain was in her low back. Denied any paresthesia. Denied loss of bowel or bladder function. Radiographic imaging of the lumbar spine displayed an L4-5 posterolateral fusion with hardware in stable position. It was recommended to obtain an MRI of the lumbar spine with and without contrast, in addition to a CT scan of the lumbar spine. It was recommended to follow-up once completed. Today she reports that her symptoms are the same. Continues to have bad low back pain. States the back pain is only present when she is up standing and walking. States that when she is sitting it is completely gone. States that the pain she has in her legs is in her anterior thighs. States that she feels weak and she cannot get up off the floor. States that physical therapy made her pain significantly worse. She presents for evaluation, image review and plan of care. 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 Rizo REMOVAL GALLBLADDER FAMILY HISTORY Problem Relation Age of Onset other (multiple myeloma) Mother COPD Father No Known Problems Sister No Known Problems Brother No Known Problems Brother Colon Cancer No Family History Social History Tobacco Use Smoking status: Never Passive exposure: Never Smokeless tobacco: Never Vaping Use Vaping status: Never Used Substance Use Topics Alcohol use: Not Currently Comment: rare occassion Drug use: Never ALLERGIES No Known Allergies MEDICATIONS: DULoxetine (CYMBALTA) 60 mg capsule TAKE ONE CAPSULE BY MOUTH EVERY DAY hydrOXYzine HCl (ATARAX) 25 mg tablet TAKE ONE TABLET BY MOUTH THREE TIMES A DAY NEEDED atorvastatin (LIPITOR) 20 mg tablet Take 1 tablet by mouth once daily. Bifidobacterium Infantis (ALIGN, B.INFANTIS,) 4 mg cap Take 1 capsule by mouth once daily. carBAMazepine XR (TEGRETOL XR) 100 mg 12 hr tablet Take 1 tablet by mouth two times a day for 7 days, THEN 2 tablets two times a day. pregabalin (LYRICA) 100 mg capsule Take 1 capsule by mouth three times a day. metoprolol succinate ER (TOPROL XL) 25 mg 24 hr tablet Take 1 tablet by mouth every afternoon. ascorbic acid, vitamin C, (VITAMIN C) 500 mg tablet Take 1 tablet by mouth once daily. vit C/E/Zn/coppr/lutein/zeaxan (PRESERVISION AREDS-2 ORAL) Take 1 tablet by mouth twice daily. REVIEW OF SYSTEMS Review of Systems OBJECTIVE: There were no vitals taken for this visit. PHYSICAL EXAM GENERAL APPEARANCE: Well nourished, well developed, and no apparent distress. NEURO PSYCH: Patient oriented to person, place, and time. Mood pleasant. Benign affect. CARDIOVASCULAR: Palpable pulses. No edema noted. No varicosities. SKIN: Head, neck, trunk, and extremities dry, intact and without lesions. LYMPHATICS: No palpable nodes in axillae areas. Groin exam deferred MUSCULOSKELETAL PALPATION: SPINOUS PROCESS: No pain. PARASPINALS: No pain. MUSCLE TONE and BULK: Symmetrical in the lower extremities. MOTOR: Left Right Lower Extremity Hip Flexors 5/5 5/5 Quadriceps 5/5 5/5 Dorsiflexion 5/5 5/5 EHL/EDC 5/5 5/5 Plantar Flexion 5/5 5/5 SENSORY: Sensation intact to light touch L1-S1 GAIT: Able to perform toe and heel walk. Able to perform tandem gait. LONG TRACT SIGNS: No clonus. REFLEXES: symmetric non-brisk DATA REVIEW CT LUMBAR SPINE WO IVCON 08/31/2024 CT scan of the lumbar spine displays possible pseudoarthrosis with loosening of the L5 screws bilaterally MRI LUMBAR SPINE WO/W IVCON 08/31/2024 MRI lumbar spine displays mild to moderate canal stenosis L3-4 ASSESSMENT/PLAN Brent Mosqueda is a 74-year-old female with anterior thigh pain and low back pain - I had a long discussion today with the patient. I believe her low back pain could be caused by a pseudoarthrosis in her lumbar spine. Her stenosis in her lumbar spine is not severe enough that I am convinced that it is the cause of her symptoms. Recommend pain management consult for injection at L3-4 to see if does not improve her bilateral anterior thigh pain. She will follow-up in 2 weeks after this injection. The following portions of the patient's history were reviewed, confirmed, and updated as necessary: allergies, current medications, past family history, past medical history, past social history, past surgical history, problem list, HPI, and ROS obtained by others. Some elements may be copied from a previous office note and have been reviewed/updated where appropriate. All portions reflect current medical decision making from today. The clinical and radiographic findings as well as the risks, benefits and alternatives of treatment have been reviewed in detail with the patient. Advised to call the office if symptoms worsen or new symptoms develop. Patient expressed understanding and is in agreement with zach. Stephen Rizo DO This note was partially generated using [employer] voice recognition system, and there may be some incorrect words, spellings, and punctuation that were not noted in checking the note before saving. Will continue to monitor patient for Radiculopathy, lumbar region (primary encounter diagnosis), patient to schedule visit as per follow up discussed. documented in this encounter [facility] 09-07-2024 Note HNO ID: [id number] Author: STEPHEN RIZO DO Service: ? Author Type: Physician Type: Progress Notes Filed: 09/07/2024 09:33 Note Text: Stephen Rizo DO [facility] - Orthopedic Spine Surgeon [address], [facility] [id number] [address] [place] [address] Phone: [phone] FAX: [phone] SPINE SURGERY OUTPATIENT CONSULT SERVICE DATE: 09/07/2024 LAST OFFICE VISIT: 08/10/2024 DATE OF : 1950 REFERRING PROVIDER: No referring provider defined for this encounter. CHIEF COMPLAINT: Low back pain, bilateral leg pain SURGERY: L4-L5 posterior spinal fusion 11/20/2023 PREOPERATIVE SYMPTOMS: Severe bilateral leg pain HISTORY OF PRESENT ILLNESS Brent Mosqueda is a 74 year old female presenting alone. She has a past medical history of fibromyalgia, arthritis, palpitations, lumbar radiculopathy and hyperlipidemia. She was last evaluated in office on 08/10/2024 for follow-up. She reported worsening pain since participating in physical therapy. She noted pain started in her bilateral sides of low back with radiation to entire bilateral lower extremities, left side worse than right. She stated she felt her left leg was giving out when ambulating. Endorsed bilateral lower extremity weakness. She reported falling down two steps due to her left leg giving out. She stated she was having difficulty sleeping at night due to her leg pain. She noted the worst pain was in her low back. Denied any paresthesia. Denied loss of bowel or bladder function. Radiographic imaging of the lumbar spine displayed an L4-5 posterolateral fusion with hardware in stable position. It was recommended to obtain an MRI of the lumbar spine with and without contrast, in addition to a CT scan of the lumbar spine. It was recommended to follow-up once completed. Today she reports that her symptoms are the same. Continues to have bad low back pain. States the back pain is only present when she is up standing and walking. States that when she is sitting it is completely gone. States that the pain she has in her legs is in her anterior thighs. States that she feels weak and she cannot get up off the floor. States that physical therapy made her pain significantly worse. She presents for evaluation, image review and plan of care. PREVIOUS CONSERVATIVE TREATMENTS: [place] Joneril Tylenol Physical Therapy- 06/04/2024, 06/23/2024, 06/25/2024, 06/29/2024 PREVIOUS SURGERY: SURGERY #1: L4-L5 posterior spinal fusion 11/20/2023 Smoker: Denies Diabetic: Denies Anticoagulants / Antiplatelets: Denies Occupation: n/a PAST MEDICAL HISTORY Diagnosis Date Arthritis Bug bites scratched open mosquito bites Contact lens/glasses fitting right eye contact for reading Fibromyalgia PCP follows History of cardiovascular stress test normal Hyperlipemia Lumbar radiculopathy 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 Rizo REMOVAL GALLBLADDER FAMILY HISTORY Problem Relation Age of Onset other (multiple myeloma) Mother COPD Father No Known Problems Sister No Known Problems Brother No Known Problems Brother Colon Cancer No Family History Social History Tobacco Use Smoking status: Never Passive exposure: Never Smokeless tobacco: Never Vaping Use Vaping status: Never Used Substance Use Topics Alcohol use: Not Currently Comment: rare occassion Drug use: Never ALLERGIES No Known Allergies MEDICATIONS: DULoxetine (CYMBALTA) 60 mg capsule TAKE ONE CAPSULE BY MOUTH EVERY DAY hydrOXYzine HCl (ATARAX) 25 mg tablet TAKE ONE TABLET BY MOUTH THREE TIMES A DAY NEEDED atorvastatin (LIPITOR) 20 mg tablet Take 1 tablet by mouth once daily. Bifidobacterium Infantis (ALIGN, B.INFANTIS,) 4 mg cap Take 1 capsule by mouth once daily. carBAMazepine XR (TEGRETOL XR) 100 mg 12 hr tablet Take 1 tablet by mouth two times a day for 7 days, THEN 2 tablets two times a day. pregabalin (LYRICA) 100 mg capsule Take 1 capsule by mouth three times a day. metoprolol succinate ER (TOPROL XL) 25 mg 24 hr tablet Take 1 tablet by mouth every afternoon. ascorbic acid, vitamin C, (VITAMIN C) 500 mg tablet Take 1 tablet by mouth once daily. vit C/E/Zn/coppr/lutein/zeaxan (PRESERVISION AREDS-2 ORAL) Take 1 tablet by mouth twice daily. REVIEW OF SYSTEMS Review of Systems OBJECTIVE: There were no vitals taken for this visit. PHYSICAL EXAM GENERAL APPEARANCE: Well nourished, well developed, and no apparent distress. NEURO PSYCH: Patient oriented to per (more content not included)... [facility] 08-31-2024 History of Presen t illness Narrative Radiology Service Progress Note DATE OF SERVICE: August 31, 2024 TIME: 2:10 PM PATIENT IDENTITY VERIFICATION COMPLETED USING TWO (2) STANDARD IDENTIFIERS: Name and Date of confirmed by patient verbally. FALL SCREENING: Has the patient had 2 falls in the last year or 1 fall with injury or currently using an Ambulatory Assistive Device (Walker, Cane, Wheelchair, Crutches, etc.)? No PATIENT GENDER DATA: Assigned female at . status: : No status: NO. PATIENT RELEVANT IMPLANT DATA REVIEWED: Yes PATIENT PRESENTS WITH AN IMPLANTABLE OR ATTACHED NIGHT FILLER: No ALLERGIES: Reviewed and unchanged CONTRAST ALLERGY: NO. EXAM: MRI - CONTRAST TYPE: GROUP II PERIPHERAL IV DATA: Ambulatory: A peripheral IV was started in the Left forearm with a Angio cath: 22 gauge. RADIOLOGY DEPARTMENT: MR; Exam(s) Completed: Spine: Lumbar spine SIGNATURE: LISA Sapp) PATIENT NAME: Brent Mosqueda DATE: August 31, 2024 TIME: 2:10 PM documented in this encounter [facility] 08-31-2024 Note HNO ID: [id number] Author: CONRADO SANTOS RT(R) Service: ? Author Type: Technologist Type: Progress Notes Filed: 08/31/2024 14:17 Note Text: Radiology Service Progress Note DATE OF SERVICE: August 31, 2024 TIME: 2:10 PM PATIENT IDENTITY VERIFICATION COMPLETED USING TWO (2) STANDARD IDENTIFIERS: Name and Date of confirmed by patient verbally. FALL SCREENING: Has the patient had 2 falls in the last year or 1 fall with injury or currently using an Ambulatory Assistive Device (Walker, Cane, Wheelchair, Crutches, etc.)? No PATIENT GENDER DATA: Assigned female at . status: : No status: NO. PATIENT RELEVANT IMPLANT DATA REVIEWED: Yes PATIENT PRESENTS WITH AN IMPLANTABLE OR ATTACHED NIGHT FILLER: No ALLERGIES: Reviewed and unchanged CONTRAST ALLERGY: NO. EXAM: MRI - CONTRAST TYPE: GROUP II PERIPHERAL IV DATA: Ambulatory: A peripheral IV was started in the Left forearm with a Angio cath: 22 gauge. RADIOLOGY DEPARTMENT: MR; Exam(s) Completed: Spine: Lumbar spine SIGNATURE: RT Sekou(R) PATIENT NAME: Brent Short Toshakatrincy DATE: August 31, 2024 TIME: 2:10 PM [facility] 08-31-2024 Note Patient Outreach (FP DOYL) PANDABRENT Han ([id number]) 1950 F Date Time Provider Department 08/31/24 PORTIA CALHOUNYL During your visit today, we recorded the following information about you: Allergies As of Date: 08/31/2024 (No Known Allergies) Date Reviewed: 08/10/2024 Reviewed by: Kayla Barkley MA - Fully Assessed Visit Diagnosis:Encounter for screening mammogram for breast cancer [Z12.31] Order(s):[facility] SCREENING W TUCKER [[id number]] Order #: [id number] FUTURE Prescriptions as of 10/01/2024 - ALIGN, B.LONGUM, 10 million cell cap TAKE ONE CAPSULE BY MOUTH EVERY DAY - pregabalin (LYRICA) 75 mg capsule Take 75 mg by mouth two times a day. - DULoxetine (CYMBALTA) 60 mg capsule TAKE ONE CAPSULE BY MOUTH EVERY DAY - hydrOXYzine HCl (ATARAX) 25 mg tablet TAKE ONE TABLET BY MOUTH THREE TIMES A DAY NEEDED - atorvastatin (LIPITOR) 20 mg tablet Take 1 tablet by mouth once daily. - Bifidobacterium Infantis (ALIGN, B.INFANTIS,) 4 mg cap Take 1 capsule by mouth once daily. - metoprolol succinate ER (TOPROL XL) 25 mg 24 hr tablet Take 1 tablet by mouth every afternoon. - ascorbic acid, vitamin C, (VITAMIN C) 500 mg tablet Take 1 tablet by mouth once daily. - vit C/E/Zn/coppr/lutein/zeaxan (PRESERVISION AREDS-2 ORAL) Take 1 tablet by mouth twice daily. Problem List As Of Date 08/31/2024 Noted Resolved MERLYN (generalized anxiety disorder) [F41.1] 07/11/2021 07/15/2023 Contusion of coccyx [S30.0XXA] 07/11/2021 07/15/2023 Chronic left shoulder pain [M25.512, G89.29] 07/11/2021 Foot pain, right [M79.671] 08/28/2022 07/15/2023 Palpitations [R00.2] 12/05/2022 VELÁZQUEZ (dyspnea on exertion) [R06.09] 01/17/2023 PVC (premature ventricular contraction) [I49.3] 01/17/2023 Postoperative pain [G89.18] 02/14/2023 07/15/2023 Anxiety with depression [F41.8] 05/20/2023 Fibromyalgia [M79.7] 05/20/2023 Elevated liver enzymes [R74.8] 05/20/2023 Chronic joint pain [M25.50, G89.29] 07/27/2023 Spinal stenosis of lumbar region with neurogeni*07/27/2023 Generalized osteoarthrosis [M15.9] 08/04/2023 Recurrent falls while walking [R29.6] 08/04/2023 Lumbar radiculopathy [M54.16] 08/24/2023 Preop examination [Z01.818] 11/07/2023 S/P lumbar fusion [Z98.1] 11/20/2023 Trigeminal neuralgia [G50.0] 06/20/2024 Elevated LFTs [R79.89] 06/28/2024 Hiatal hernia [K44.9] 07/05/2024 Chronic gastritis without bleeding [K29.50] 07/05/2024 Encounter Status:Closed by MACO GRANT on 10/01/24 [facility] 08-17-2024 Telephone encounter Note Pharmacy faxed requesting the following refill Refill(s) Requested: Requested Prescriptions Pending Prescriptions Disp Refills DULoxetine (CYMBALTA) 60 mg capsule [Pharmacy Med Name: DULOXETINE HCL 60MG CPEP] 90 capsule 3 Sig: TAKE ONE CAPSULE BY MOUTH EVERY DAY ALLERGIES No Known Allergies (home) [phone] (cell) Last Office Visit Date: 06/21/2024 Last Distance Health Visit: Visit date not found Future Appointment: Visit date not found The patients preferred pharmacy has been captured for this encounter? yes Request is for script(s) to be escript to pharmacy. Denisse Proctor LPN [facility] 08-17-2024 Miscellaneous Notes Pharmacy faxed requesting the following refill Refill(s) Requested: Requested Prescriptions Pending Prescriptions Disp Refills DULoxetine (CYMBALTA) 60 mg capsule [Pharmacy Med Name: DULOXETINE HCL 60MG CPEP] 90 capsule 3 Sig: TAKE ONE CAPSULE BY MOUTH EVERY DAY ALLERGIES No Known Allergies (home) [phone] (cell) Last Office Visit Date: 06/21/2024 Last Distance Health Visit: Visit date not found Future Appointment: Visit date not found The patients preferred pharmacy has been captured for this encounter? yes Request is for script(s) to be escript to pharmacy. Denisse Proctor LPN documented in this encounter [facility] 08-17-2024 Telephone encounter Note Our office received a [facility] for a consult for Alkaline phosphatase elevation from Dr. Ny LM [facility] 08-17-2024 Miscellaneous Notes Our office received a referral through [facility] for a consult for Alkaline phosphatase elevation from Dr. Ny LM documented [facility] this encounter [facility] [facility] Telephone encounter Note ----- Message from Portia Calhoun DO sent at 08/13/2024 10:04 AM EDT ----- Gi consult elevated alk phos [facility] 08-13-2024 Miscellaneous Notes ----- Message from Portia Calhoun DO sent at 08/13/2024 10:04 AM EDT ----- Gi consult elevated alk phos documented in this encounter [facility] 08-13-2024 Telephone encounter Note Consult to Gastroenterology Alkaline phosphatase elevation Confirmation number: [id number] Karson Harper [facility] 08-13-2024 Miscellaneous Notes Consult to Gastroenterology Alkaline phosphatase elevation Confirmation number: [id number] Karson Harper documented in this encounter [facility] 08-10-2024 History of Presen t illness Narrative Images from the original note were not included. Stephen Rizo, [facility] [place] [facility] - Orthopedic Spine Surgeon [address] [address], [place] [address] [place] [id number] Phone: [phone] ([phone] FAX: [phone] SPINE SURGERY OUTPATIENT CONSULT SERVICE DATE: 08/10/2024 LAST OFFICE VISIT: 05/11/2024 DATE OF : 1950 REFERRING PROVIDER: No referring provider defined for this encounter. CHIEF COMPLAINT: SURGERY: L4-L5 posterior spinal fusion 11/20/2023 PREOPERATIVE SYMPTOMS: severe bilateral leg pain HISTORY OF PRESENT ILLNESS Brent Mosqueda is a 74 year old female presenting alone. She was last evaluated in office on 05/11/2024 for ongoing bilateral low back pain that worsened over the last 3 months. She stated pain started in her bilateral low back with radiation down the anterior aspect of her bilateral thighs extending to the knees. She stated today the lateral aspect of her right hip was most bothersome. She reported the pain was across her back and not centered over the SI joints. She noted her left knee felt weak at times and felt like it was going to give out when ambulating. She denied any loss of bowel or bladder function. She reported treating her symptoms with oral medications with minimal relief. Radiographic imaging of the lumbar spine displayed an L4-5 posterolateral fusion with hardware in stable position. Early fusion mass is seen bilaterally. Radiographic imaging showed early fusion mass forming bilaterally at L4-5. It was discussed that it is still possible she could be developing a pseudoarthrosis at the L4-5 segment. It was recommended for a full course of physical therapy to treat her back pain and bilateral leg pain and to follow-up once completed. Today she reports worsening pain since participating in physical therapy. She notes pain starts in her bilateral low back with radiation to entire bilateral lower extremities, left side worse than right. She states it feels like her left leg is giving out when ambulating. Endorses bilateral lower extremity weakness. She reported falling down 2 steps due to her left leg giving out. She states she is having difficulty sleeping at night due to her leg pain. Denies any paresthesia. Denies loss of bowel or bladder function. She states that the pain starts in her low back and travels down her legs. States that the worst pain is in her low back. She presents for evaluation, image review and plan of care. 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 Rizo REMOVAL GALLBLADDER FAMILY HISTORY Problem Relation Age of Onset other (multiple myeloma) Mother COPD Father No Known Problems Sister No Known Problems Brother No Known Problems Brother Colon Cancer No Family History Social History Tobacco Use Smoking status: Never Passive exposure: Never Smokeless tobacco: Never Vaping Use Vaping status: Never Used Substance Use Topics Alcohol use: Not Currently Comment: rare occassion Drug use: Never ALLERGIES No Known Allergies MEDICATIONS: hydrOXYzine HCl (ATARAX) 25 mg tablet TAKE ONE TABLET BY MOUTH THREE TIMES A DAY NEEDED atorvastatin (LIPITOR) 20 mg tablet Take 1 tablet by mouth once daily. Bifidobacterium Infantis (ALIGN, B.INFANTIS,) 4 mg cap Take 1 capsule by mouth once daily. carBAMazepine XR (TEGRETOL XR) 100 mg 12 hr tablet Take 1 tablet by mouth two times a day for 7 days, THEN 2 tablets two times a day. pregabalin (LYRICA) 100 mg capsule Take 1 capsule by mouth three times a day. metoprolol succinate ER (TOPROL XL) 25 mg 24 hr tablet Take 1 tablet by mouth every afternoon. DULoxetine (CYMBALTA) 60 mg capsule Take 1 capsule by mouth once daily. ascorbic acid, vitamin C, (VITAMIN C) 500 mg tablet Take 1 tablet by mouth once daily. vit C/E/Zn/coppr/lutein/zeaxan (PRESERVISION AREDS-2 ORAL) Take 1 tablet by mouth twice daily. iv contrast (will be provided with radiology test) MRI LSP Inject, intravenously, once for 1 dose. No IV access, insert saline lock prior to the beginning of sedation, infusion, injection of imaging exam. Discontinue saline lock post exam. If Pt. has a central line or IVAD, may access for administration according to line specific nursing protocol. Once exam is complete flush line and de-access according to line specific nursing protocol in the MR contrast administration guidelines link. REVIEW OF SYSTEMS Review of Systems Constitutional: Negative for chills, diaphoresis and fever. HENT: Negative for congestion, trouble swallowing and voice change. Eyes: Negative for pain, discharge and visual disturbance. Respiratory: Negative for cough, shortness of breath and wheezing. Cardiovascular: Negative for chest pain, palpitations and leg swelling. Gastrointestinal: Negative for constipation, diarrhea, nausea and vomiting. Endocrine: Negative for cold intolerance, heat intolerance and polyphagia. Genitourinary: Negative for difficulty urinating, frequency and urgency. Musculoskeletal: Positive for back pain. Negative for gait problem and neck pain. Skin: Negative for pallor, rash and wound. Allergic/Immunologic: Negative for environmental allergies, food allergies and immunocompromised state. Neurological: Positive for weakness. Negative for dizziness and numbness. Hematological: Does not bruise/bleed easily. Psychiatric/Behavioral: Negative for agitation and confusion. The patient is not nervous/anxious. OBJECTIVE: BP 114/75 (BP Site: Left Arm, BP Position: Sitting, BP Cuff Size: Extra Large Adult) Pulse 74 Ht 5' 2 (1.575 m) Wt 181 lb 14.1 oz (82.5 kg) SpO2 95% BMI 33.27 kg/m PHYSICAL EXAM GENERAL APPEARANCE: Well nourished, well developed, and no apparent distress. NEURO PSYCH: Patient oriented to person, place, and time. Mood pleasant. Benign affect. CARDIOVASCULAR: Palpable pulses. No edema noted. No varicosities. SKIN: Head, neck, trunk, and extremities dry, intact and without lesions. LYMPHATICS: No palpable nodes in axillae areas. Groin exam deferred MUSCULOSKELETAL PALPATION: SPINOUS PROCESS: No pain. PARASPINALS: No pain. MUSCLE TONE and BULK: Symmetrical in the lower extremities. MOTOR: Left Right Lower Extremity Hip Flexors 5/5 5/5 Quadriceps 5/5 5/5 Dorsiflexion 5/5 5/5 EHL/EDC 5/5 5/5 Plantar Flexion 5/5 5/5 SENSORY: Sensation intact to light touch L1-S1 GAIT: Walks with an antalgic gait LONG TRACT SIGNS: No clonus. REFLEXES: symmetric non-brisk DATA REVIEW XR LUMBAR LIMITED 2V AP/LAT 08/10/2024 AP lateral view of the lumbar spine displays an L4-5 posterolateral fusion with hardware in stable position ASSESSMENT/PLAN Brent Mosqueda 74-year-old female who is 9 months status post L4-5 laminectomy and fusion -I had a long discussion today with the patient. She has failed physical therapy. Recommend an MRI of the lumbar spine with and without contrast. Recommend a CT scan of the lumbar spine. We will evaluate her for pseudoarthrosis and possible adjacent segment disease. If both of these come back as negative we will evaluate her for possible sacroiliitis. MRI of lumbar spine will provide diagnostic evaluation of neural compression contributing to symptoms. MRI results will provide diagnostic guidance with continued conservative treatment measures such as potential epidural steroid injections versus surgical plan The following portions of the patient's history were reviewed, confirmed, and updated as necessary: allergies, current medications, past family history, past medical history, past social history, past surgical history, problem list, HPI, and ROS obtained by others. Some elements may be copied from a previous office note and have been reviewed/updated where appropriate. All portions reflect current medical decision making from today. The clinical and radiographic findings as well as the risks, benefits and alternatives of treatment have been reviewed in detail with the patient. Advised to call the office if symptoms worsen or new symptoms develop. Patient expressed understanding and is in agreement with plan. Stephen Rizo DO This note was partially generated using [employer] voice recognition system, and there may be some incorrect words, spellings, and punctuation that were not noted in checking the note before saving. documented in this encounter [facility] 08-10-2024 Note HNO ID: [id number] Author: STEPHEN RIZO DO Service: ? Author Type: Physician Type: Progress Notes Filed: 08/10/2024 14:07 Note Text: Stephen Rizo DO [facility] [place] [facility] - Orthopedic Spine Surgeon [address], [place] [address] [address] [place] [address] Phone: [phone] ([phone] FAX: [phone] SPINE SURGERY OUTPATIENT CONSULT SERVICE DATE: 08/10/2024 LAST OFFICE VISIT: 05/11/2024 DATE OF : 1950 REFERRING PROVIDER: No referring provider defined for this encounter. CHIEF COMPLAINT: SURGERY: L4-L5 posterior spinal fusion 11/20/2023 PREOPERATIVE SYMPTOMS: severe bilateral leg pain HISTORY OF PRESENT ILLNESS Brent Mosqueda is a 74 year old female presenting alone. She was last evaluated in office on 05/11/2024 for ongoing bilateral low back pain that worsened over the last 3 months. She stated pain started in her bilateral low back with radiation down the anterior aspect of her bilateral thighs extending to the knees. She stated today the lateral aspect of her right hip was most bothersome. She reported the pain was across her back and not centered over the SI joints. She noted her left knee felt weak at times and felt like it was going to give out when ambulating. She denied any loss of bowel or bladder function. She reported treating her symptoms with oral medications with minimal relief. Radiographic imaging of the lumbar spine displayed an L4-5 posterolateral fusion with hardware in stable position. Early fusion mass is seen bilaterally. Radiographic imaging showed early fusion mass forming bilaterally at L4-5. It was discussed that it is still possible she could be developing a pseudoarthrosis at the L4-5 segment. It was recommended for a full course of physical therapy to treat her back pain and bilateral leg pain and to follow-up once completed. Today she reports worsening pain since participating in physical therapy. She notes pain starts in her bilateral low back with radiation to entire bilateral lower extremities, left side worse than right. She states it feels like her left leg is giving out when ambulating. Endorses bilateral lower extremity weakness. She reported falling down 2 steps due to her left leg giving out. She states she is having difficulty sleeping at night due to her leg pain. Denies any paresthesia. Denies loss of bowel or bladder function. She states that the pain starts in her low back and travels down her legs. States that the worst pain is in her low back. She presents for evaluation, image review and plan of care. 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 Rizo REMOVAL GALLBLADDER FAMILY HISTORY Problem Relation Age of Onset other (multiple myeloma) Mother COPD Father No Known Problems Sister No Known Problems Brother No Known Problems Brother Colon Cancer No Family History Social History Tobacco Use Smoking status: Never Passive exposure: Never Smokeless tobacco: Never Vaping Use Vaping status: Never Used Substance Use Topics Alcohol use: Not Currently Comment: rare occassion Drug use: Never ALLERGIES No Known Allergies MEDICATIONS: hydrOXYzine HCl (ATARAX) 25 mg tablet TAKE ONE TABLET BY MOUTH THREE TIMES A DAY NEEDED atorvastatin (LIPITOR) 20 mg tablet Take 1 tablet by mouth once daily. Bifidobacterium Infantis (ALIGN, B.INFANTIS,) 4 mg cap Take 1 capsule by mouth once daily. carBAMazepine XR (TEGRETOL XR) 100 mg 12 hr tablet Take 1 tablet by mouth two times a day for 7 days, THEN 2 tablets two times a day. pregabalin (LYRICA) 100 mg capsule Take 1 capsule by mouth three times a day. metoprolol succinate ER (TOPROL XL) 25 mg 24 hr tablet Take 1 tablet by mouth every afternoon. DULoxetine (CYMBALTA) 60 mg capsule Take 1 capsule by mouth once daily. ascorbic acid, vitamin C, (VITAMIN C) 500 mg tablet Take 1 tablet by mouth once daily. vit C/E/Zn/coppr/lutein/zeaxan (PRESERVISION AREDS-2 (more content not included)... [facility] 08-10-2024 History of Presen t illness Narrative Radiology Service Progress Note PATIENT NAME: Brent Mosqueda DATE OF SERVICE: August 10, 2024 TIME: 1:10 PM PATIENT IDENTITY VERIFICATION COMPLETED USING TWO (2) IDENTIFIERS: Name and Date of confirmed by patient verbally. FALL SCREENING: Has the patient had 2 falls in the last year or 1 fall with injury or currently using an Ambulatory Assistive Device (Walker, Cane, Wheelchair, Crutches, etc.)? No PATIENT GENDER DATA: Assigned female at . status: : No status: NO. PATIENT RELEVANT IMPLANT DATA REVIEWED: Not Applicable PATIENT PRESENTS WITH AN IMPLANTABLE OR ATTACHED NIGHT FILLER: No RADIOLOGY DEPARTMENT: General X-ray: Exam(s) Completed: Spine X-Ray(s): Lumbar AP / LAT / L5-S1 PERIPHERAL IV DATA: Not applicable SIGNED BY: RT Debora(Heriberto) August 10, 2024 1:10 PM documented in this encounter [facility] 08-10-2024 Note HNO ID: [id number] Author: JANI CAMERON RT(R) Service: Radiology Author Type: Technologist Type: Progress Notes Filed: 08/10/2024 13:10 Note Text: Radiology Service Progress Note PATIENT NAME: Brnet Mosqueda DATE OF SERVICE: August 10, 2024 TIME: 1:10 PM PATIENT IDENTITY VERIFICATION COMPLETED USING TWO (2) IDENTIFIERS: Name and Date of confirmed by patient verbally. FALL SCREENING: Has the patient had 2 falls in the last year or 1 fall with injury or currently using an Ambulatory Assistive Device (Walker, Cane, Wheelchair, Crutches, etc.)? No PATIENT GENDER DATA: Assigned female at . status: : No status: NO. PATIENT RELEVANT IMPLANT DATA REVIEWED: Not Applicable PATIENT PRESENTS WITH AN IMPLANTABLE OR ATTACHED NIGHT FILLER: No RADIOLOGY DEPARTMENT: General X-ray: Exam(s) Completed: Spine X-Ray(s): Lumbar AP / LAT / L5-S1 PERIPHERAL IV DATA: Not applicable SIGNED BY: RT Debora(Heriberto) August 10, 2024 1:10 PM [facility] 08-02-2024 Telephone encounter Note 90 tablets with 2 refills given 03/22/24. Okay to refill? [facility] 08-02-2024 Miscellaneous Notes 90 tablets with 2 refills given 03/22/24. Okay to refill? documented in this encounter [facility] 07-21-2024 Telephone encounter Note Letter sent [facility] 07-21-2024 Miscellaneous Notes Letter sent LVMTCB LVMTCB Patient would like a call back regarding her lab results. documented in this encounter [facility] 07-21-2024 Telephone encounter Note LVMTCB [facility] 07-20-2024 Telephone encounter Note LVMTCB [facility] 07-19-2024 Telephone encounter Note Patient would like a call back regarding her lab results. [facility] 07-19-2024 Telephone encounter Note Per Chart, results note from Devorah Salazar concerning the patients alk phos. This does not look like it was sent to the patient. Please advise [facility] 07-19-2024 Miscellaneous Notes Per Chart, results note from Devorah Salazar concerning the patients alk phos. This does not look like it was sent to the patient. Please advise LM for pt to rtn call. Alk phos up needs liver us and gi consult alk phos isos ordered documented in this encounter [facility] 07-15-2024 Telephone encounter Note LM for pt to rtn call. [facility] 07-15-2024 Telephone encounter Note Need gi consult for inc alk phos consult written [facility] 07-15-2024 Miscellaneous Notes Need gi consult for inc alk phos consult written documented in this encounter [facility] 07-13-2024 Telephone encounter Note Pt. Update 07.13.24 Gastro. Call left message Note: consult to GI: Abnormal liver enzymes [facility] 07-13-2024 Miscellaneous Notes Pt. Update 07.13.24 Gastro. Call left message Note: consult to GI: Abnormal liver enzymes documented in this encounter [facility] 07-13-2024 Telephone encounter Note Consult to Gastroenterology Abnormal liver enzymes Confirmation number: [id number] Karson Harper [facility] 07-13-2024 Miscellaneous Notes Consult to Gastroenterology Abnormal liver enzymes Confirmation number: [id number] Karson Harper documented in this encounter [facility] 07-13-2024 Telephone encounter Note Alk phos up needs liver us and gi consult alk phos isos ordered [facility] 06-29-2024 Note HNO ID: [id number] Author: PÉREZ LING PT Service: ? Author Type: Physical Therapist Type: Progress Notes Filed: 06/29/2024 14:45 Note Text: Episode Visit Count: 4 Therapist That Will Accept/Oversee The Plan Of Care: Pérez Ling PT Start of Care Date: 06/04/24 Onset Date: 11/24/23 Plan of Care Certification Date: 06/04/24 Next Certification Due Date: 07/09/24 Patient Identified by Name and Date of : Yes REHABILITATION AND SPORTS THERAPY PHYSICAL THERAPY TREATMENT NOTE ASSESSMENT: Brent Mosqueda tolerated the session with fatigue and expected muscle soreness. She demonstrated difficulty with radicular pain with spinal flexion which is new. Pt has pain with multiple directions of movement. The patient will continue to benefit from ongoing skilled physical therapy to progress toward set goals. PLAN FOR NEXT VISIT: See what surgeon has to say. SUBJECTIVE: Pt reports that after last therapy visit, pt had and ultrasound and blood work and got in the car and went to go to [facility] and was in a lot of pain (8.5/9/10) and could barely walk. [place] okay doing the exercises in session. Pain has dimished since then, but has not gone away. Pain: Pain Pain Level: 0 (walking in today was 4/10.) Pain Location: Low Back/Lumbar Spine- Midline, Hip - Right, Hip - Left Post Treatment Pain Post Treatment Pain Location: Low Back/Lumbar Spine- Midline, Hip - Right, Hip - Left Post Treatment Symptoms: Tender OBJECTIVE MEASURES WITH LEVEL OF FUNCTION: Lumbar Spine AROM Lumbar Flexion: Normal, Peripheralizing Lumbar Extension: Minimal limitation, Increased pain PROM B hip flexion reduces LBP Active hip flexion B causes radicular symptoms bilaterally Hip ER and IR without pain for the R and L side Positive SLR testing on the R and L for nerve tension TREATMENT: Self-Fpc Management: 1: Education on use of heat to relax muscles or ice to calm it down if there is inflammation 2: Education on stopping movements that cause pain. Skilled Intervention: Skilled judgment in the selection of proper modification for activity of daily living/home management based on clinical presentation, deficits, and needs. Reviewed patient specific diagnosis in relation to activities of daily living/home management. Activity progression based on professional judgement. Billing Self-Care/Home Management Treatment Minutes: 20 Skilled Treatment Time Minutes (timed and untimed codes): 20 Total Session Time (minutes): 20 Session Start Time : 1400 Session Stop Time : 1420 GRAHAM Brown PT [facility] 06-29-2024 History of Presen t illness Narrative Episode Visit Count: 4 Therapist That Will Accept/Oversee The Plan Of Care: Pérez Ling PT Start of Care Date: 06/04/24 Onset Date: 11/24/23 Plan of Care Certification Date: 06/04/24 Next Certification Due Date: 07/09/24 Patient Identified by Name and Date of : Yes REHABILITATION AND SPORTS THERAPY PHYSICAL THERAPY TREATMENT NOTE ASSESSMENT: Brent Mosqueda tolerated the session with fatigue and expected muscle soreness. She demonstrated difficulty with radicular pain with spinal flexion which is new. Pt has pain with multiple directions of movement. The patient will continue to benefit from ongoing skilled physical therapy to progress toward set goals. PLAN FOR NEXT VISIT: See what surgeon has to say. SUBJECTIVE: Pt reports that after last therapy visit, pt had and ultrasound and blood work and got in the car and went to go to [facility] and was in a lot of pain (8.5/9/10) and could barely walk. [place] okay doing the exercises in session. Pain has dimished since then, but has not gone away. Pain: Pain Pain Level: 0 (walking in today was 4/10.) Pain Location: Low Back/Lumbar Spine- Midline, Hip - Right, Hip - Left Post Treatment Pain Post Treatment Pain Location: Low Back/Lumbar Spine- Midline, Hip - Right, Hip - Left Post Treatment Symptoms: Tender OBJECTIVE MEASURES WITH LEVEL OF FUNCTION: Lumbar Spine AROM Lumbar Flexion: Normal, Peripheralizing Lumbar Extension: Minimal limitation, Increased pain PROM B hip flexion reduces LBP Active hip flexion B causes radicular symptoms bilaterally Hip ER and IR without pain for the R and L side Positive SLR testing on the R and L for nerve tension TREATMENT: Self-Fpc Management: 1: Education on use of heat to relax muscles or ice to calm it down if there is inflammation 2: Education on stopping movements that cause pain. Skilled Intervention: Skilled judgment in the selection of proper modification for activity of daily living/home management based on clinical presentation, deficits, and needs. Reviewed patient specific diagnosis in relation to activities of daily living/home management. Activity progression based on professional judgement. Billing Self-Care/Home Management Treatment Minutes: 20 Skilled Treatment Time Minutes (timed and untimed codes): 20 Total Session Time (minutes): 20 Session Start Time : 1400 Session Stop Time : 1420 GRAHAM Brown PT documented in this encounter [facility] 06-25-2024 History of Presen t illness Narrative Radiology Service Progress Note PATIENT NAME: Brent Mosqueda DATE OF SERVICE: June 25, 2024 TIME: 9:24 AM PATIENT IDENTITY VERIFICATION COMPLETED USING TWO (2) IDENTIFIERS: Name and Date of confirmed by patient verbally. FALL SCREENING: Has the patient had 2 falls in the last year or 1 fall with injury or currently using an Ambulatory Assistive Device (Walker, Cane, Wheelchair, Crutches, etc.)? No PATIENT GENDER DATA: Assigned female at . status: : No status: NO. PATIENT RELEVANT IMPLANT DATA REVIEWED: Not Applicable PATIENT PRESENTS WITH AN IMPLANTABLE OR ATTACHED NIGHT FILLER: No RADIOLOGY DEPARTMENT: Ultrasound PERIPHERAL IV DATA: Not applicable SIGNED BY: Daphnie Siddiqi RDMS June 25, 2024 9:24 AM documented in this encounter [facility] 06-25-2024 Note HNO ID: [id number] Author: DAPHNIE SIDDIQI RDMS Service: ? Author Type: Jeeper Operator Type: Progress Notes Filed: 06/25/2024 09:24 Note Text: Radiology Service Progress Note PATIENT NAME: Brent Mosqueda DATE OF SERVICE: June 25, 2024 TIME: 9:24 AM PATIENT IDENTITY VERIFICATION COMPLETED USING TWO (2) IDENTIFIERS: Name and Date of confirmed by patient verbally. FALL SCREENING: Has the patient had 2 falls in the last year or 1 fall with injury or currently using an Ambulatory Assistive Device (Walker, Cane, Wheelchair, Crutches, etc.)? No PATIENT GENDER DATA: Assigned female at . status: : No status: NO. PATIENT RELEVANT IMPLANT DATA REVIEWED: Not Applicable PATIENT PRESENTS WITH AN IMPLANTABLE OR ATTACHED NIGHT FILLER: No RADIOLOGY DEPARTMENT: Ultrasound PERIPHERAL IV DATA: Not applicable SIGNED BY: Daphnie Siddiqi RDMS June 25, 2024 9:24 AM [facility] 06-25-2024 History of Presen t illness Narrative Program_ID:[id number] Access Code: [email or web address] URL: [email or web address] Date: 06-25-2024 Prepared By: Sagar Calero Program Notes Exercises - Supine Double Knee to Chest - 1 x daily - 7 x weekly - 3 sets - 3 reps - Hooklying Single Knee to Chest - 1 x daily - 7 x weekly - 3 sets - 3 reps - Sidelying Hip Abduction - 1 x daily - 7 x weekly - 3 sets - 10 reps - Supine 90/90 Alternating Toe Touch - 1 x daily - 7 x weekly - 3 sets - 10 reps - Bent Knee Fallouts - 1 x daily - 7 x weekly - 3 sets - 10 reps - Supine Transversus Abdominis Bracing - Hands on Ground - 1 x daily - 7 x weekly - 3 sets - 10 reps - Quadruped Cat Cow - 1 x daily - 7 x weekly - 3 sets - 10 reps - Supine Transversus Abdominis Bracing - Hands on Ground - 2-3 x daily - 7 x weekly - 2 sets - 10 reps - Supine Piriformis Stretch with Foot on Ground - 1 x daily - 7 x weekly - 1 sets - 3 reps - Seated Piriformis Stretch - 1 x daily - 7 x weekly - 1 sets - 3 reps Episode Visit Count: 3 Therapist That Will Accept/Oversee The Plan Of Care: Pérez Ling PT Start of Care Date: 06/04/24 Onset Date: 11/24/23 Plan of Care Certification Date: 06/04/24 Next Certification Due Date: 07/09/24 Patient Identified by Name and Date of : Yes REHABILITATION AND SPORTS THERAPY PHYSICAL THERAPY TREATMENT NOTE ASSESSMENT: Brent Mosqueda tolerated the session with fatigue. She demonstrated improvements in understanding of how use of cane provides extra stability. The patient will continue to benefit from ongoing skilled physical therapy to progress toward set goals. PLAN FOR NEXT VISIT: Continue with gentle TA activation in supine SUBJECTIVE: Pt reports that yesterday was a bad day for her back and B hips, better today. Walking was painful.Unsure if the exercises are bothering her. Not as much pain, but weakness. Did not do exercises yesterday due to pain. Not painful getting out of the car this morning. Pain: Pain Pain Level: 0 Pain Location: Low Back/Lumbar Spine- Midline, Hip - Right, Hip - Left Post Treatment Pain Post Treatment Pain Level: No Change Post Treatment Pain Location: Low Back/Lumbar Spine- Midline, Hip - Right, Hip - Left OBJECTIVE MEASURES WITH LEVEL OF FUNCTION: Tightness in B piriformis. TREATMENT: Therapeutic Exercise: 1: Seated repeated lumbar flexion with forearms on thighs 3x30 seconds 2: Supine TA activation via shoulder extension 2x10 with 1-2 second holds 3: Supine TA activation via shoulder extension with alt toe taps (PF/DF) 3x10 B 4: Hooklying TA activation with push into 55 cm physioball 2x10 5: *Piriformis stretching 3x30 seconds B in supine. (alos gave seated option for home) Skilled Intervention: Patient was educated in proper exercise technique and purpose for exercises. Reviewed and educated patient on additions/changes for home exercise program as above (*). Skilled judgment was used in selection of appropriate interventions. Provided written instruction for home exercise program to facilitate proper performance and compliance. Correct performance of therapeutic exercises was facilitated with verbal and visual cuing. Gait Trainin: Gait training with SPC used in either hand with step-through gait pattern x 40 ft each UE, when pt has rough pain days and needs to walk long distances. Education on proper height adjustament and gait patterns with use of cane prior to pt performing. Skilled Intervention: Patient was provided stand by assist during pre-gait/gait training to prevent falls and insure safety. Facilitated proper gait cycle with the use of verbal and visual cues for correction of gait deviations identified in the objective section above. Gait belt utilized during session for safety. Billing Therapeutic Exercise Treatment Minutes: 37 Gait Training Treatment Minutes: 8 Skilled Treatment Time Minutes (timed and untimed codes): 45 Total Session Time (minutes): 45 Session Start Time : 0758 Session Stop Time : 08 GRAHAM Brown PT documented in this encounter [facility] 06-25-2024 Note HNO ID: [id number] Author: PÉREZ LING PT Service: ? Author Type: Physical Therapist Type: Progress Notes Filed: 06/25/2024 13:12 Note Text: Episode Visit Count: 3 Therapist That Will Accept/Oversee The Plan Of Care: Pérez Ling PT Start of Care Date: 06/04/24 Onset Date: 11/24/23 Plan of Care Certification Date: 06/04/24 Next Certification Due Date: 07/09/24 Patient Identified by Name and Date of : Yes REHABILITATION AND SPORTS THERAPY PHYSICAL THERAPY TREATMENT NOTE ASSESSMENT: Brent Mosqueda tolerated the session with fatigue. She demonstrated improvements in understanding of how use of cane provides extra stability. The patient will continue to benefit from ongoing skilled physical therapy to progress toward set goals. PLAN FOR NEXT VISIT: Continue with gentle TA activation in supine SUBJECTIVE: Pt reports that yesterday was a bad day for her back and B hips, better today. Walking was painful.Unsure if the exercises are bothering her. Not as much pain, but weakness. Did not do exercises yesterday due to pain. Not painful getting out of the car this morning. Pain: Pain Pain Level: 0 Pain Location: Low Back/Lumbar Spine- Midline, Hip - Right, Hip - Left Post Treatment Pain Post Treatment Pain Level: No Change Post Treatment Pain Location: Low Back/Lumbar Spine- Midline, Hip - Right, Hip - Left OBJECTIVE MEASURES WITH LEVEL OF FUNCTION: Tightness in B piriformis. TREATMENT: Therapeutic Exercise: 1: Seated repeated lumbar flexion with forearms on thighs 3x30 seconds 2: Supine TA activation via shoulder extension 2x10 with 1-2 second holds 3: Supine TA activation via shoulder extension with alt toe taps (PF/DF) 3x10 B 4: Hooklying TA activation with push into 55 cm physioball 2x10 5: *Piriformis stretching 3x30 seconds B in supine. (alos gave seated option for home) Skilled Intervention: Patient was educated in proper exercise technique and purpose for exercises. Reviewed and educated patient on additions/changes for home exercise program as above (*). Skilled judgment was used in selection of appropriate interventions. Provided written instruction for home exercise program to facilitate proper performance and compliance. Correct performance of therapeutic exercises was facilitated with verbal and visual cuing. Gait Trainin: Gait training with SPC used in either hand with step-through gait pattern x 40 ft each UE, when pt has rough pain days and needs to walk long distances. Education on proper height adjustament and gait patterns with use of cane prior to pt performing. Skilled Intervention: Patient was provided stand by assist during pre-gait/gait training to prevent falls and insure safety. Facilitated proper gait cycle with the use of verbal and visual cues for correction of gait deviations identified in the objective section above. Gait belt utilized during session for safety. Billing Therapeutic Exercise Treatment Minutes: 37 Gait Training Treatment Minutes: 8 Skilled Treatment Time Minutes (timed and untimed codes): 45 Total Session Time (minutes): 45 Session Start Time : 0758 Session Stop Time : 08 Poonam John, GRAHAM Ling, PT [facility] 06-24-2024 History of Presen t illness Narrative Radiology Service Progress Note PATIENT NAME: Brent Mosqueda DATE OF SERVICE: June 24, 2024 TIME: 2:40 PM PATIENT IDENTITY VERIFICATION COMPLETED USING TWO (2) IDENTIFIERS: Name and Date of confirmed by patient verbally. FALL SCREENING: Has the patient had 2 falls in the last year or 1 fall with injury or currently using an Ambulatory Assistive Device (Walker, Cane, Wheelchair, Crutches, etc.)? No PATIENT GENDER DATA: Assigned female at . status: : No status: NO. PATIENT RELEVANT IMPLANT DATA REVIEWED: Not Applicable PATIENT PRESENTS WITH AN IMPLANTABLE OR ATTACHED NIGHT FILLER: No RADIOLOGY DEPARTMENT: General X-ray: Exam(s) Completed: GI/ Procedure(s): Esophogram with barium contrast PERIPHERAL IV DATA: Not applicable SIGNED BY: RT Viral(Heriberto) June 24, 2024 2:40 PM documented in this encounter [facility] 06-24-2024 Note HNO ID: [id number] Author: CLARE AGUIAR RT(R) Service: Radiology Author Type: Technologist Type: Progress Notes Filed: 06/24/2024 14:40 Note Text: Radiology Service Progress Note PATIENT NAME: Brent Mosqueda DATE OF SERVICE: June 24, 2024 TIME: 2:40 PM PATIENT IDENTITY VERIFICATION COMPLETED USING TWO (2) IDENTIFIERS: Name and Date of confirmed by patient verbally. FALL SCREENING: Has the patient had 2 falls in the last year or 1 fall with injury or currently using an Ambulatory Assistive Device (Walker, Cane, Wheelchair, Crutches, etc.)? No PATIENT GENDER DATA: Assigned female at . status: : No status: NO. PATIENT RELEVANT IMPLANT DATA REVIEWED: Not Applicable PATIENT PRESENTS WITH AN IMPLANTABLE OR ATTACHED NIGHT FILLER: No RADIOLOGY DEPARTMENT: General X-ray: Exam(s) Completed: GI/ Procedure(s): Esophogram with barium contrast PERIPHERAL IV DATA: Not applicable SIGNED BY: RT Viral(Heriberto) June 24, 2024 2:40 PM [facility] 06-23-2024 History of Presen t illness Narrative Program_ID:[id number] Access Code: [email or web address] URL: [email or web address] Date: 06-23-2024 Prepared By: Sagar Calero Program Notes Exercises - Supine Double Knee to Chest - 1 x daily - 7 x weekly - 3 sets - 3 reps - Hooklying Single Knee to Chest - 1 x daily - 7 x weekly - 3 sets - 3 reps - Sidelying Hip Abduction - 1 x daily - 7 x weekly - 3 sets - 10 reps - Supine 90/90 Alternating Toe Touch - 1 x daily - 7 x weekly - 3 sets - 10 reps - Bent Knee Fallouts - 1 x daily - 7 x weekly - 3 sets - 10 reps - Supine Transversus Abdominis Bracing - Hands on Ground - 1 x daily - 7 x weekly - 3 sets - 10 reps - Quadruped Cat Cow - 1 x daily - 7 x weekly - 3 sets - 10 reps - Supine Transversus Abdominis Bracing - Hands on Ground - 2-3 x daily - 7 x weekly - 2 sets - 10 reps Episode Visit Count: 2 Therapist That Will Accept/Oversee The Plan Of Care: Pérez Ling PT Start of Care Date: 06/04/24 Onset Date: 11/24/23 Plan of Care Certification Date: 06/04/24 Next Certification Due Date: 07/09/24 Patient Identified by Name and Date of : Yes REHABILITATION AND SPORTS THERAPY PHYSICAL THERAPY TREATMENT NOTE ASSESSMENT: Brent Mosqueda tolerated the session with fatigue and expected muscle soreness. She demonstrated improvements in TA activation via shoulder extension vs. PPT. The patient will continue to benefit from ongoing skilled physical therapy to progress toward set goals. PLAN FOR NEXT VISIT: Asses response to TA activation via shoulder extension SUBJECTIVE: Pt reports that her back is not cherelle good today, fluctuates alot. Pt states still having pain with getting out of her car in her B hip joints and across her low back. Pain: Pain Pain Level: 0 (getting out of the car 8/10) Pain Location: Low Back/Lumbar Spine- Midline, Hip - Right, Hip - Left Post Treatment Pain Post Treatment Pain Location: Low Back/Lumbar Spine- Midline, Hip - Right, Hip - Left OBJECTIVE MEASURES WITH LEVEL OF FUNCTION: TREATMENT: Therapeutic Exercise: 1: PPT x10 (unable to complete with correct technique at this time even with cueing and demonstartion) 2: *Supine TA activation via shoulder extension 2x10 with 1-2 second holds 3: *Supine TA activation via shoulder extension with alt toe taps (PF/DF) 2x10 B Skilled Intervention: Patient was educated in proper exercise technique and purpose for exercises. Reviewed and educated patient on additions/changes for home exercise program as above (*). Skilled judgment was used in selection of appropriate interventions. Provided written instruction for home exercise program to facilitate proper performance and compliance. Correct performance of therapeutic exercises was facilitated with verbal and visual cuing. Self-Fpc Management: 1: Discussed how pt gets into and out of car. Education on backing into seat to not accidently twist at lumbar spine. 2: Discussed putting pillow on couch cushion to ease getting up. Skilled Intervention: Skilled judgment in the selection of proper modification for activity of daily living/home management based on clinical presentation, deficits, and needs. Reviewed patient specific diagnosis in relation to activities of daily living/home management. Activity progression based on professional judgement. Billing Therapeutic Exercise Treatment Minutes: 25 Self-Care/Home Management Treatment Minutes: 13 Skilled Treatment Time Minutes (timed and untimed codes): 38 Total Session Time (minutes): 38 Session Start Time : 1715 Session Stop Time : 1753 GRAHAM Brown PT documented in this encounter [facility] 06-23-2024 Note HNO ID: [id number] Author: ESTEE MCFARLAND PT Service: ? Author Type: Physical Therapist Type: Progress Notes Filed: 06/23/2024 18:00 Note Text: Episode Visit Count: 2 Therapist That Will Accept/Oversee The Plan Of Care: Pérez Ling PT Start of Care Date: 06/04/24 Onset Date: 11/24/23 Plan of Care Certification Date: 06/04/24 Next Certification Due Date: 07/09/24 Patient Identified by Name and Date of : Yes REHABILITATION AND SPORTS THERAPY PHYSICAL THERAPY TREATMENT NOTE ASSESSMENT: Brent Mosqueda tolerated the session with fatigue and expected muscle soreness. She demonstrated improvements in TA activation via shoulder extension vs. PPT. The patient will continue to benefit from ongoing skilled physical therapy to progress toward set goals. PLAN FOR NEXT VISIT: Asses response to TA activation via shoulder extension SUBJECTIVE: Pt reports that her back is not cherelle good today, fluctuates alot. Pt states still having pain with getting out of her car in her B hip joints and across her low back. Pain: Pain Pain Level: 0 (getting out of the car 8/10) Pain Location: Low Back/Lumbar Spine- Midline, Hip - Right, Hip - Left Post Treatment Pain Post Treatment Pain Location: Low Back/Lumbar Spine- Midline, Hip - Right, Hip - Left OBJECTIVE MEASURES WITH LEVEL OF FUNCTION: TREATMENT: Therapeutic Exercise: 1: PPT x10 (unable to complete with correct technique at this time even with cueing and demonstartion) 2: *Supine TA activation via shoulder extension 2x10 with 1-2 second holds 3: *Supine TA activation via shoulder extension with alt toe taps (PF/DF) 2x10 B Skilled Intervention: Patient was educated in proper exercise technique and purpose for exercises. Reviewed and educated patient on additions/changes for home exercise program as above (*). Skilled judgment was used in selection of appropriate interventions. Provided written instruction for home exercise program to facilitate proper performance and compliance. Correct performance of therapeutic exercises was facilitated with verbal and visual cuing. Self-Fpc Management: 1: Discussed how pt gets into and out of car. Education on backing into seat to not accidently twist at lumbar spine. 2: Discussed putting pillow on couch cushion to ease getting up. Skilled Intervention: Skilled judgment in the selection of proper modification for activity of daily living/home management based on clinical presentation, deficits, and needs. Reviewed patient specific diagnosis in relation to activities of daily living/home management. Activity progression based on professional judgement. Billing Therapeutic Exercise Treatment Minutes: 25 Self-Care/Home Management Treatment Minutes: 13 Skilled Treatment Time Minutes (timed and untimed codes): 38 Total Session Time (minutes): 38 Session Start Time : 1715 Session Stop Time : 1753 Poonam John, GRAHAM Mcfarland, PT [facility] 06-21-2024 Note HNO ID: [id number] Author: PORTIA CALHOUN DO Service: ? Author Type: Physician Type: Progress Notes Filed: 06/28/2024 19:21 Note Text: [facility] [place] Portia Calhoun DO [address] [place] [address] Date of Evaluation: 06/21/2024 Patient Name: Brent Mosqueda : 1950 Chief Complaint: Patient presents with: Trigeminal Neuralgia: Started taking Tegretol - patient states this is helping Results: Lab results Subjective Ms. Mosqueda is a 73 year old female who presents with the following complaint(s): Patient presents to follow up after starting Tegretol last week. Patient doing well on medication states that pain is almost resolved. Review of Systems Constitutional: Negative for fatigue and unexpected weight change. HENT: Negative for nosebleeds. Eyes: Negative for redness and visual disturbance. Respiratory: Negative for apnea, cough and shortness of breath. Cardiovascular: Negative for chest pain, palpitations and leg swelling. Genitourinary: Negative for hematuria. Neurological: Negative for dizziness, weakness, light-headedness, numbness and headaches. Hematological: Does not bruise/bleed easily. Psychiatric/Behavioral: The patient is not nervous/anxious. 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 Rizo REMOVAL GALLBLADDER FAMILY HISTORY Problem Relation Age of Onset other (multiple myeloma) Mother COPD Father No Known Problems Sister No Known Problems Brother No Known Problems Brother Colon Cancer No Family History Social History Tobacco Use Smoking status: Never Passive exposure: Never Smokeless tobacco: Never Vaping Use Vaping status: Never Used Substance Use Topics Alcohol use: Not Currently Comment: rare occassion Drug use: Never Current Outpatient Medications Medication Sig Bifidobacterium Infantis (ALIGN, B.INFANTIS,) 4 mg cap Take 1 capsule by mouth once daily. carBAMazepine XR (TEGRETOL XR) 100 mg 12 hr tablet Take 1 tablet by mouth two times a day for 7 days, THEN 2 tablets two times a day. pregabalin (LYRICA) 100 mg capsule Take 1 capsule by mouth three times a day. metoprolol succinate ER (TOPROL XL) 25 mg 24 hr tablet Take 1 tablet by mouth every afternoon. hydrOXYzine HCl (ATARAX) 25 mg tablet take one tablet by mouth three times a day as needed DULoxetine (CYMBALTA) 60 mg capsule Take 1 capsule by mouth once daily. ascorbic acid, vitamin C, (VITAMIN C) 500 mg tablet Take 1 tablet by mouth once daily. vit C/E/Zn/coppr/lutein/zeaxan (PRESERVISION AREDS-2 ORAL) Take 1 tablet by mouth twice daily. No current facility-administered medications for this visit. I have confirmed and edited as necessary the past medical, family and social histories, HPI, and ROS obtained by others. Objective BP 118/66 Pulse 80 Temp 98.6 SpO2 96% Physical Exam Vitals and nursing note reviewed. Constitutional: General: She is not in acute distress. Appearance: Normal appearance. She is well-developed. She is obese. She is not ill-appearing. HENT: Head: Normocephalic. Nose: Nose normal. Mouth/Throat: Pharynx: Oropharynx is clear. Uvula midline. Eyes: General: Lids are normal. Vision grossly intact. Gaze aligned appropriately. Extraocular Movements: Extraocular movements intact. Conjunctiva/sclera: Conjunctivae normal. Pupils: Pupils are equal, round, and reactive to light. Neck: Thyroid: No thyroid mass, thyromegaly or thyroid tenderness. Trachea: Trachea and phonation normal. Cardiovascular: Rate and Rhythm: Normal rate and regular rhythm. Pulses: Normal pulses. Heart sounds: Normal heart sounds. Pulmonary: Effort: Pulmonary effort is normal. Breath sounds: Normal breath sounds. Abdominal: General: Abdomen is flat. Bowel sounds are normal. Palpations: Abdomen is soft. Musculoskeletal: General: Normal range of motion. Right shoulder: Normal. Left shoulder: Normal. Cervical back: Normal, full passive range of motion without pain and neck supple. No spinous process tenderness. Thoracic back: Normal. Lumbar back: Normal. Right knee: Normal. Left knee: Normal. Right lower leg: No edema. Left lower leg: No edema. Skin: General: Skin is warm and dry. Neurological: General: No focal deficit pre (more content not included)... [facility] 06-21-2024 History of Presen t illness Narrative Images from the original note were not included. [facility] [address] [place] [address] Date of Evaluation: 06/21/2024 Patient Name: Brnet Mosqueda : 1950 Chief Complaint: Patient presents with: Trigeminal Neuralgia: Started taking Tegretol - patient states this is helping Results: Lab results Subjective Ms. Mosqueda is a 73 year old female who presents with the following complaint(s): Patient presents to follow up after starting Tegretol last week. Patient doing well on medication states that pain is almost resolved. Review of Systems Constitutional: Negative for fatigue and unexpected weight change. HENT: Negative for nosebleeds. Eyes: Negative for redness and visual disturbance. Respiratory: Negative for apnea, cough and shortness of breath. Cardiovascular: Negative for chest pain, palpitations and leg swelling. Genitourinary: Negative for hematuria. Neurological: Negative for dizziness, weakness, light-headedness, numbness and headaches. Hematological: Does not bruise/bleed easily. Psychiatric/Behavioral: The patient is not nervous/anxious. 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 Rizo REMOVAL GALLBLADDER FAMILY HISTORY Problem Relation Age of Onset other (multiple myeloma) Mother COPD Father No Known Problems Sister No Known Problems Brother No Known Problems Brother Colon Cancer No Family History Social History Tobacco Use Smoking status: Never Passive exposure: Never Smokeless tobacco: Never Vaping Use Vaping status: Never Used Substance Use Topics Alcohol use: Not Currently Comment: rare occassion Drug use: Never Current Outpatient Medications Medication Sig Bifidobacterium Infantis (ALIGN, B.INFANTIS,) 4 mg cap Take 1 capsule by mouth once daily. carBAMazepine XR (TEGRETOL XR) 100 mg 12 hr tablet Take 1 tablet by mouth two times a day for 7 days, THEN 2 tablets two times a day. pregabalin (LYRICA) 100 mg capsule Take 1 capsule by mouth three times a day. metoprolol succinate ER (TOPROL XL) 25 mg 24 hr tablet Take 1 tablet by mouth every afternoon. hydrOXYzine HCl (ATARAX) 25 mg tablet take one tablet by mouth three times a day as needed DULoxetine (CYMBALTA) 60 mg capsule Take 1 capsule by mouth once daily. ascorbic acid, vitamin C, (VITAMIN C) 500 mg tablet Take 1 tablet by mouth once daily. vit C/E/Zn/coppr/lutein/zeaxan (PRESERVISION AREDS-2 ORAL) Take 1 tablet by mouth twice daily. No current facility-administered medications for this visit. I have confirmed and edited as necessary the past medical, family and social histories, HPI, and ROS obtained by others. Objective BP 118/66 Pulse 80 Temp 98.6 SpO2 96% Physical Exam Vitals and nursing note reviewed. Constitutional: General: She is not in acute distress. Appearance: Normal appearance. She is well-developed. She is obese. She is not ill-appearing. HENT: Head: Normocephalic. Nose: Nose normal. Mouth/Throat: Pharynx: Oropharynx is clear. Uvula midline. Eyes: General: Lids are normal. Vision grossly intact. Gaze aligned appropriately. Extraocular Movements: Extraocular movements intact. Conjunctiva/sclera: Conjunctivae normal. Pupils: Pupils are equal, round, and reactive to light. Neck: Thyroid: No thyroid mass, thyromegaly or thyroid tenderness. Trachea: Trachea and phonation normal. Cardiovascular: Rate and Rhythm: Normal rate and regular rhythm. Pulses: Normal pulses. Heart sounds: Normal heart sounds. Pulmonary: Effort: Pulmonary effort is normal. Breath sounds: Normal breath sounds. Abdominal: General: Abdomen is flat. Bowel sounds are normal. Palpations: Abdomen is soft. Musculoskeletal: General: Normal range of motion. Right shoulder: Normal. Left shoulder: Normal. Cervical back: Normal, full passive range of motion without pain and neck supple. No spinous process tenderness. Thoracic back: Normal. Lumbar back: Normal. Right knee: Normal. Left knee: Normal. Right lower leg: No edema. Left lower leg: No edema. Skin: General: Skin is warm and dry. Neurological: General: No focal deficit present. Mental Status: She is alert and oriented to person, place, and time. Mental status is at baseline. Sensory: Sensation is intact. Motor: Motor function is intact. Psychiatric: Attention and Perception: Attention and perception normal. Mood and Affect: Mood normal. Speech: Speech normal. Behavior: Behavior normal. Thought Content: Thought content normal. Judgment: Judgment normal. Data Reviewed: No new labs ASSESSMENT/PLAN: 1. Trigeminal neuralgia - ICD9: 350.1, ICD10: G50.0 (primary diagnosis) - Resolved with Tegretol, advised can wean back off tegretol if wants to stop medication. 2. Elevated LFTs - ICD9: 790.6, ICD10: R79.89 - reviewed recent blood work - Obtain US - US ABD RIGHT UPPER QUADRANT Discussed lab findings, ordered US, medications with patient x 30mmin 3. Class 1 obesity with body mass index (BMI) of 34.0 to 34.9 in adult, unspecified obesity type, unspecified whether serious comorbidity present - ICD9: 278.00, V85.34, ICD10: E66.811, Z68.34 Return if symptoms worsen or fail to improve. Portia Calhoun DO Attestation: Scribe Attestation: The patient is seen and examined by Dr. Calhoun and the following reflects his/her service. Scribed by Alex Yu June 21, 2024 4:37 PMProvider Attestation: I, Portia Calhoun DO personally performed the services described in this documentation. All medical record entries made by the scribe were at my direction and in my presence. I have reviewed the chart and discharge instructions (if applicable) and agree that the record reflects my personal performance and is accurate and complete. Electronically Signed: Portia Calhoun DO, June 21, 2024 4:39 PM documented in this encounter [facility] 06-21-2024 Miscellaneous Notes ----- Message from Portia Calhoun DO sent at 06/21/2024 3:24 PM EST ----- Will take statin lipids up documented in this encounter [facility] 06-21-2024 Telephone encounter Note ----- Message from Portia Calhoun DO sent at 06/21/2024 3:24 PM EST ----- Will take statin lipids up [facility] 06-21-2024 Note HNO ID: [id number] Author: DEVORAH SALAZAR PA-C Service: ? Author Type: Physician Design Drafter Chief Type: Progress Notes Filed: 06/21/2024 14:18 Note Text: CHIEF COMPLAINT: Patient presents with: Lymphocytic colitis: No concerns HPI Brent Mosqueda is a 73 year old female here today for Lymphocytic colitis (No concerns). Surg hx pos for bea. Bms are daily/every several days, soft consistency, no blood. Taking Align daily. Did not start Miralax as needed as recommended last office visit. Admits to chronic issues with dysphagia, states episodes are rare and is not sure exactly how often this occurs. States episodes are worse when she experiences postnasal drainage. Denies gas, bloating, abd pain, N/V, GERD, weight loss. 10/2022 AMA neg 10/2022 Celiac negative Colon 10/2022 Impression: - The examined portion of the ileum was normal. - The entire examined colon is normal. Biopsied. FINAL DIAGNOSIS A. Colon, random, biopsy: -Lymphocytic colitis. US 08/2022 IMPRESSION: Mild right hydronephrosis versus multiple peripelvic cysts. Otherwise normal sonographic appearance of the right upper quadrant. Latest Ref Rng 11/04/2022 Transglutaminase Ab, IgA <20 Units 11 Transglutaminase IgA Qualitative Negative, Test not Indicated Negative Interpretation (Celiac Screen) No serological evidence of celiac disease, however, if celiac disease is clinically suspected and patient is not on gluten-free diet, histological diagnosis may be considered. HLA testing may help with risk assessment. Gliadin Ab, IgA <20 Units 7 Gliad Deamidated IgA Qual Negative, Test not Indicated Negative Mitochondrial Ab Screen Negative Negative Mitochondrial M2 IgG Quantitative <=20.0 Units 11.9 IgA 70 - 400 mg/dL 267 OV 2022 Brent Mosqueda is a 72 year old female here today for Procedure Follow Up (Colon 11/12/22 Labs 11/04/22). Seen last for chronic diarrhea, elevated alk phos. Colon 10/2022 showed MC. Started on Entocort 10/2022 which she is not due to finish until 02/11. Bms are currently 1-2 per week, some intermittent constipation, no blood. Trying to cut back on NSAID usage. Current Outpatient Medications Medication Sig carBAMazepine XR (TEGRETOL XR) 100 mg 12 hr tablet Take 1 tablet by mouth two times a day for 7 days, THEN 2 tablets two times a day. pregabalin (LYRICA) 100 mg capsule Take 1 capsule by mouth three times a day. metoprolol succinate ER (TOPROL XL) 25 mg 24 hr tablet Take 1 tablet by mouth every afternoon. ALIGN 4 mg cap TAKE ONE CAPSULE BY MOUTH ONCE DAILY` hydrOXYzine HCl (ATARAX) 25 mg tablet take one tablet by mouth three times a day as needed DULoxetine (CYMBALTA) 60 mg capsule Take 1 capsule by mouth once daily. ascorbic acid, vitamin C, (VITAMIN C) 500 mg tablet Take 1 tablet by mouth once daily. vit C/E/Zn/coppr/lutein/zeaxan (PRESERVISION AREDS-2 ORAL) Take 1 tablet by mouth twice daily. No current facility-administered medications for this visit. ALLERGIES No Known Allergies Social History Tobacco Use Smoking status: Never Passive exposure: Never Smokeless tobacco: Never Vaping Use Vaping status: Never Used Substance Use Topics Alcohol use: Not Currently Comment: rare occassion Drug use: Never 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 [place] PAST SURGICAL HISTORY Procedure Laterality Date ANKLE SURGERY HX Left x3 COLONOSCOPY SCREENING within the last 18 years per patient COLONOSCOPY SCREENING 11/12/2022 Lymphocytic colitis FOOT SURGERY HX Right 01/2023 PAST SURGICAL HISTORY OF 11/20/2023 spinal fusion l4 and l5 Dr. Rizo REMOVAL GALLBL[employer]DER FAMILY HISTORY Problem Relation Age of Onset other (multiple myeloma) Mother COPD Father No Known Problems Sister No Known Problems Brother No Known Problems Brother Colon Cancer No Family History REVIEW OF SYSTEMS Review of Systems Respiratory: Positive for choking. All other systems reviewed and are negative. PHYSICAL EXAM BP 122/68 Pulse 100 Ht 157.5 cm (5' 2) Wt 86.2 kg (190 lb) BMI 34.75 kg/m? Physical Exam Constitutional: General: She is not in acute distress. Appearance: Normal appearance. She is normal weight. She is not ill-appearing, toxic-appearing or diaphoretic. HENT: Head: Normocephalic and atraumatic. Nose: Nose normal. Eyes: General: No scleral icterus. Right eye: No discharge. Left eye: No discharge. Extraocular Movements: Extraocular movements intact. Conjunctiva/sclera: Conjunctivae normal. Pupils: Pupils are equal, round, and reactive to light. Cardiovascular: Rate and Rhythm: Normal rate and regular rhythm. Pulses: Normal pulses. Heart sounds: Norm (more content not included)... [facility] 06-21-2024 History of Presen t illness Narrative CHIEF COMPLAINT: Patient presents with: Lymphocytic colitis: No concerns HPI Brent Mosqueda is a 73 year old female here today for Lymphocytic colitis (No concerns). Surg hx pos for bea. Bms are daily/every several days, soft consistency, no blood. Taking Align daily. Did not start Miralax as needed as recommended last office visit. Admits to chronic issues with dysphagia, states episodes are rare and is not sure exactly how often this occurs. States episodes are worse when she experiences postnasal drainage. Denies gas, bloating, abd pain, N/V, GERD, weight loss. 10/2022 AMA neg 10/2022 Celiac negative Colon 10/2022 Impression: - The examined portion of the ileum was normal. - The entire examined colon is normal. Biopsied. FINAL DIAGNOSIS A. Colon, random, biopsy: -Lymphocytic colitis. US 08/2022 IMPRESSION: Mild right hydronephrosis versus multiple peripelvic cysts. Otherwise normal sonographic appearance of the right upper quadrant. Latest Ref Rng 11/04/2022 Transglutaminase Ab, IgA <20 Units 11 Transglutaminase IgA Qualitative Negative, Test not Indicated Negative Interpretation (Celiac Screen) No serological evidence of celiac disease, however, if celiac disease is clinically suspected and patient is not on gluten-free diet, histological diagnosis may be considered. HLA testing may help with risk assessment. Gliadin Ab, IgA <20 Units 7 Gliad Deamidated IgA Qual Negative, Test not Indicated Negative Mitochondrial Ab Screen Negative Negative Mitochondrial M2 IgG Quantitative <=20.0 Units 11.9 IgA 70 - 400 mg/dL 267 OV 2022 Brent Mosqueda is a 72 year old female here today for Procedure Follow Up (Colon 11/12/22 Labs 11/04/22). Seen last for chronic diarrhea, elevated alk phos. Colon 10/2022 showed MC. Started on Entocort 10/2022 which she is not due to finish until 02/11. Bms are currently 1-2 per week, some intermittent constipation, no blood. Trying to cut back on NSAID usage. Current Outpatient Medications Medication Sig carBAMazepine XR (TEGRETOL XR) 100 mg 12 hr tablet Take 1 tablet by mouth two times a day for 7 days, THEN 2 tablets two times a day. pregabalin (LYRICA) 100 mg capsule Take 1 capsule by mouth three times a day. metoprolol succinate ER (TOPROL XL) 25 mg 24 hr tablet Take 1 tablet by mouth every afternoon. ALIGN 4 mg cap TAKE ONE CAPSULE BY MOUTH ONCE DAILY` hydrOXYzine HCl (ATARAX) 25 mg tablet take one tablet by mouth three times a day as needed DULoxetine (CYMBALTA) 60 mg capsule Take 1 capsule by mouth once daily. ascorbic acid, vitamin C, (VITAMIN C) 500 mg tablet Take 1 tablet by mouth once daily. vit C/E/Zn/coppr/lutein/zeaxan (PRESERVISION AREDS-2 ORAL) Take 1 tablet by mouth twice daily. No current facility-administered medications for this visit. ALLERGIES No Known Allergies Social History Tobacco Use Smoking status: Never Passive exposure: Never Smokeless tobacco: Never Vaping Use Vaping status: Never Used Substance Use Topics Alcohol use: Not Currently Comment: rare occassion Drug use: Never 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 [place] PAST SURGICAL HISTORY Procedure Laterality Date ANKLE SURGERY HX Left x3 COLONOSCOPY SCREENING within the last 18 years per patient COLONOSCOPY SCREENING 11/12/2022 Lymphocytic colitis FOOT SURGERY HX Right 01/2023 PAST SURGICAL HISTORY OF 11/20/2023 spinal fusion l4 and l5 Dr. Rizo REMOVAL GALLBLADDER FAMILY HISTORY Problem Relation Age of Onset other (multiple myeloma) Mother COPD Father No Known Problems Sister No Known Problems Brother No Known Problems Brother Colon Cancer No Family History REVIEW OF SYSTEMS Review of Systems Respiratory: Positive for choking. All other systems reviewed and are negative. PHYSICAL EXAM BP 122/68 Pulse 100 Ht 157.5 cm (5' 2) Wt 86.2 kg (190 lb) BMI 34.75 kg/m Physical Exam Constitutional: General: She is not in acute distress. Appearance: Normal appearance. She is normal weight. She is not ill-appearing, toxic-appearing or diaphoretic. HENT: Head: Normocephalic and atraumatic. Nose: Nose normal. Eyes: General: No scleral icterus. Right eye: No discharge. Left eye: No discharge. Extraocular Movements: Extraocular movements intact. Conjunctiva/sclera: Conjunctivae normal. Pupils: Pupils are equal, round, and reactive to light. Cardiovascular: Rate and Rhythm: Normal rate and regular rhythm. Pulses: Normal pulses. Heart sounds: Normal heart sounds. No murmur heard. No friction rub. No gallop. Pulmonary: Effort: No respiratory distress. Breath sounds: Normal breath sounds. No stridor. No wheezing, rhonchi or rales. Chest: Chest wall: No tenderness. Abdominal: General: Abdomen is flat. Bowel sounds are normal. There is no distension. Palpations: Abdomen is soft. There is no mass. Tenderness: There is no abdominal tenderness. There is no right CVA tenderness, left CVA tenderness, guarding or rebound. Hernia: No hernia is present. Musculoskeletal: General: Normal range of motion. Cervical back: Normal range of motion and neck supple. Skin: General: Skin is warm and dry. Neurological: General: No focal deficit present. Mental Status: She is alert and oriented to person, place, and time. Psychiatric: Mood and Affect: Mood normal. Behavior: Behavior normal. Assessment/Plan (R74.8) Elevated alkaline phosphatase level (primary encounter diagnosis) (K58.8) Other irritable bowel syndrome 1. Elevated alkaline phosphatase level - HEPATIC FUNCTION PNL; Future - ANTI-SP100 AND ANTI-GP210 ANTIBODIES, IGG; Future - MITOCHONDRIAL M2 IGG SERUM; Future - Normal US 2022 - Previous source check was from liver sources. Will plan to check repeat labs, with autoimmune testing 2. Other irritable bowel syndrome - Bifidobacterium Infantis (ALIGN, B.INFANTIS,) 4 mg cap; Take 1 capsule by mouth once daily. Dispense: 42 capsule; Refill: 1 - States Align is helping to soften her stools but sometimes causes more softer than necessary. She is going to try taking every other day to see if this helps 3. Esophageal dysphagia - XR ESOPHAGRAM; Future - Pt providing limited history of symptoms, longevity and frequency. Advised esophagram for initial eval, consider EGD pending results Follow up in office PRN. I spent a total of 20 minutes on the date of the service which included preparing to see the patient, [id number] patient care, completing clinical documentation, obtaining and/or reviewing separately obtained history, performing a medically appropriate examination, counseling and educating the patient/family/caregiver, ordering medications, tests, or procedures, communicating with other HCPs (not separately reported), independently interpreting results (not separately reported), communicating results to the patient/family/caregiver, and care coordination (not separately reported). Devorah Salazar PA-C June 21, 2024 2:07 PM documented in this encounter [facility] 06-10-2024 Note HNO ID: [id number] Author: PORTIA CALHOUN DO Service: ? Author Type: Physician Type: Progress Notes Filed: 06/20/2024 22:53 Note Text: [facility] Reji Calhoun DO [address] [place] [address] Date of Evaluation: 06/10/2024 Patient Name: Brent Mosqueda : 1950 Chief Complaint: Patient presents with: Wellness: Yearly. Headache: Sharp pain. Intermittent. Left side. X 1 week Subjective Ms. Mosqueda is a 73 year old female who presents with the following complaint(s): The history is provided by the patient. No sign language instructor was used. Headache This is a new problem. The current episode started more than 1 week ago. The problem has not changed since onset.The headache is associated with nothing. The pain is located in the Left unilateral and temporal region. The quality of the pain is described as sharp (sharp fast ice pick type pain.). The pain is moderate. The pain does not radiate. Pertinent negatives include no palpitations and no shortness of breath. Anxiety Pertinent negatives include no weakness. This is a chronic problem. Progression since onset: Stable. Depression Pertinent negatives include no weakness. This is a chronic problem. Progression since onset: Stable. Review of Systems Constitutional: Negative for fatigue and unexpected weight change. HENT: Negative for nosebleeds. Eyes: Negative for redness and visual disturbance. Respiratory: Negative for apnea, cough and shortness of breath. Cardiovascular: Negative for chest pain, palpitations and leg swelling. Genitourinary: Negative for hematuria. Musculoskeletal: Positive for back pain. Neurological: Positive for headaches. Negative for dizziness, weakness, light-headedness and numbness. Hematological: Does not bruise/bleed easily. Psychiatric/Behavioral: Positive for depression. The patient is nervous/anxious. 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 Rizo REMOVAL GALLBLADDER FAMILY HISTORY Problem Relation Age of Onset other (multiple myeloma) Mother COPD Father No Known Problems Sister No Known Problems Brother No Known Problems Brother Colon Cancer No Family History Social History Tobacco Use Smoking status: Never Passive exposure: Never Smokeless tobacco: Never Vaping Use Vaping status: Never Used Substance Use Topics Alcohol use: Yes Comment: rare occassion Drug use: Never Current Outpatient Medications Medication Sig pregabalin (LYRICA) 100 mg capsule Take 1 capsule by mouth three times a day. metoprolol succinate ER (TOPROL XL) 25 mg 24 hr tablet Take 1 tablet by mouth every afternoon. ALIGN 4 mg cap TAKE ONE CAPSULE BY MOUTH ONCE DAILY` hydrOXYzine HCl (ATARAX) 25 mg tablet take one tablet by mouth three times a day as needed DULoxetine (CYMBALTA) 60 mg capsule Take 1 capsule by mouth once daily. ascorbic acid, vitamin C, (VITAMIN C) 500 mg tablet Take 1 tablet by mouth once daily. vit C/E/Zn/coppr/lutein/zeaxan (PRESERVISION AREDS-2 ORAL) Take 1 tablet by mouth twice daily. No current facility-administered medications for this visit. I have confirmed and edited as necessary the past medical, family and social histories, HPI, and ROS obtained by others. Objective BP 142/84 Pulse 77 Temp 98.2 Ht 5' 2 (1.58m) Wt 188 lb (85.3kg) SpO2 97% BMI 34.38 kg/(m2). Physical Exam Vitals and nursing note reviewed. Constitutional: General: She is not in acute distress. Appearance: Normal appearance. She is well-developed. She is obese. She is not ill-appearing. HENT: Head: Normocephalic. Nose: Nose normal. Mouth/Throat: Pharynx: Uvula midline. Eyes: General: Lids are normal. Vision grossly intact. Gaze aligned appropriately. Extraocular Movements: Extraocular movements intact. Conjunctiva/sclera: Conjunctivae normal. Pupils: Pupils are equal, round, and reactive to light. Neck: Thyroid: No thyroid mass, thyromegaly or thyroid tenderness. Trachea: Trachea and phonation normal. Cardiovascular: Rate and Rhythm: Normal rate and regular rhythm. Pulses: Normal pulses. Heart sounds: Normal heart sounds. Musculoskeletal: General: Normal range of motion. Right shoulder: Normal. Left shoulder: Normal. Cervical back: Norm (more content not included)... [facility] 06-10-2024 History of Presen t illness Narrative Images from the original note were not included. [facility], DO [address] [place] [address] Date of Evaluation: 06/10/2024 Patient Name: Brent Mosqueda : 1950 Chief Complaint: Patient presents with: Wellness: Yearly. Headache: Sharp pain. Intermittent. Left side. X 1 week Subjective Ms. Mosqueda is a 73 year old female who presents with the following complaint(s): The history is provided by the patient. No sign language instructor was used. Headache This is a new problem. The current episode started more than 1 week ago. The problem has not changed since onset.The headache is associated with nothing. The pain is located in the Left unilateral and temporal region. The quality of the pain is described as sharp (sharp fast ice pick type pain.). The pain is moderate. The pain does not radiate. Pertinent negatives include no palpitations and no shortness of breath. Anxiety Pertinent negatives include no weakness. This is a chronic problem. Progression since onset: Stable. Depression Pertinent negatives include no weakness. This is a chronic problem. Progression since onset: Stable. Review of Systems Constitutional: Negative for fatigue and unexpected weight change. HENT: Negative for nosebleeds. Eyes: Negative for redness and visual disturbance. Respiratory: Negative for apnea, cough and shortness of breath. Cardiovascular: Negative for chest pain, palpitations and leg swelling. Genitourinary: Negative for hematuria. Musculoskeletal: Positive for back pain. Neurological: Positive for headaches. Negative for dizziness, weakness, light-headedness and numbness. Hematological: Does not bruise/bleed easily. Psychiatric/Behavioral: Positive for depression. The patient is nervous/anxious. 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 Rizo REMOVAL GALLBLADDER FAMILY HISTORY Problem Relation Age of Onset other (multiple myeloma) Mother COPD Father No Known Problems Sister No Known Problems Brother No Known Problems Brother Colon Cancer No Family History Social History Tobacco Use Smoking status: Never Passive exposure: Never Smokeless tobacco: Never Vaping Use Vaping status: Never Used Substance Use Topics Alcohol use: Yes Comment: rare occassion Drug use: Never Current Outpatient Medications Medication Sig pregabalin (LYRICA) 100 mg capsule Take 1 capsule by mouth three times a day. metoprolol succinate ER (TOPROL XL) 25 mg 24 hr tablet Take 1 tablet by mouth every afternoon. ALIGN 4 mg cap TAKE ONE CAPSULE BY MOUTH ONCE DAILY` hydrOXYzine HCl (ATARAX) 25 mg tablet take one tablet by mouth three times a day as needed DULoxetine (CYMBALTA) 60 mg capsule Take 1 capsule by mouth once daily. ascorbic acid, vitamin C, (VITAMIN C) 500 mg tablet Take 1 tablet by mouth once daily. vit C/E/Zn/coppr/lutein/zeaxan (PRESERVISION AREDS-2 ORAL) Take 1 tablet by mouth twice daily. No current facility-administered medications for this visit. I have confirmed and edited as necessary the past medical, family and social histories, HPI, and ROS obtained by others. Objective BP 142/84 Pulse 77 Temp 98.2 Ht 5' 2 (1.58m) Wt 188 lb (85.3kg) SpO2 97% BMI 34.38 kg/(m^2). Physical Exam Vitals and nursing note reviewed. Constitutional: General: She is not in acute distress. Appearance: Normal appearance. She is well-developed. She is obese. She is not ill-appearing. HENT: Head: Normocephalic. Nose: Nose normal. Mouth/Throat: Pharynx: Uvula midline. Eyes: General: Lids are normal. Vision grossly intact. Gaze aligned appropriately. Extraocular Movements: Extraocular movements intact. Conjunctiva/sclera: Conjunctivae normal. Pupils: Pupils are equal, round, and reactive to light. Neck: Thyroid: No thyroid mass, thyromegaly or thyroid tenderness. Trachea: Trachea and phonation normal. Cardiovascular: Rate and Rhythm: Normal rate and regular rhythm. Pulses: Normal pulses. Heart sounds: Normal heart sounds. Musculoskeletal: General: Normal range of motion. Right shoulder: Normal. Left shoulder: Normal. Cervical back: Normal, full passive range of motion without pain and neck supple. No spinous process tenderness. Thoracic back: Normal. Lumbar back: Normal. Right knee: Normal. Left knee: Normal. Right lower leg: No edema. Left lower leg: No edema. Skin: General: Skin is warm and dry. Neurological: General: No focal deficit present. Mental Status: She is alert and oriented to person, place, and time. Mental status is at baseline. Sensory: Sensation is intact. Motor: Motor function is intact. Psychiatric: Attention and Perception: Attention and perception normal. Mood and Affect: Mood normal. Speech: Speech normal. Behavior: Behavior normal. Thought Content: Thought content normal. Judgment: Judgment normal. Data Reviewed: No new labs ASSESSMENT/PLAN: 1. S/P lumbar fusion - ICD9: V45.4, ICD10: Z98.1 (primary diagnosis) - Managed by Ortho. 2. Trigeminal neuralgia - ICD9: 350.1, ICD10: G50.0 - Start Tegretol - CARBAMAZEPINE ER 100 MG TABLET,EXTENDED RELEASE,12 HR 3. Lumbar radiculopathy - ICD9: 724.4, ICD10: M54.16 - Managed by Ortho. 4. Screening for hyperlipidemia - ICD9: V77.91, ICD10: Z13.220 - COMPLETE BLOOD COUNT AND DIFFERENTIAL - COMPREHENSIVE METABOLIC PANEL - LIPID PANEL BASIC - URINALYSIS, WITH MICROSCOPIC 5. Screening for thyroid disorder - ICD9: V77.0, ICD10: Z13.29 - THYROID STIMULATING HORMONE 6. Fibromyalgia - ICD9: 729.1, ICD10: M79.7 - Continue Lyrica. 7. Anxiety with depression - ICD9: 300.4, ICD10: F41.8 - Stable continue current medication. 8. BMI 34.0-34.9,adult - ICD9: V85.34, ICD10: Z68.34 Portia Calhoun DO Return in about 1 week (around 06/17/2024) for medication follow up. Attestation: Scribe Attestation: The patient is seen and examined by Dr. Calhoun and the following reflects his/her service. Scribed by Alex Yu June 10, 2024 2:34 PMProvider Attestation: Portia Mcadams DO personally performed the services described in this documentation. All medical record entries made by the scribe were at my direction and in my presence. I have reviewed the chart and discharge instructions (if applicable) and agree that the record reflects my personal performance and is accurate and complete. Electronically Signed: Portia Calhoun DO, June 10, 2024 2:42 PM documented in this encounter [facility] 06-04-2024 Note HNO ID: [id number] Author: PÉREZ LING PT Service: ? Author Type: Physical Therapist Type: Progress Notes Filed: 06/25/2024 13:04 Note Text: Episode Visit Count: 1 Therapist That Will Accept/Oversee The Plan Of Care: Pérez Ling PT Start of Care Date: 06/04/24 Onset Date: 11/24/23 Plan of Care Certification Date: 06/04/24 Next Certification Due Date: 07/09/24 Patient Identified by Name and Date of : Yes REHABILITATION AND SPORTS THERAPY PHYSICAL THERAPY EVALUATION PLAN OF CARE: Assessment: Brent Mosqueda presents with chief complaint of LBP and BLE pain that interferes with walking, stair negotiation . The patient presents with impairments in ADL's, independence in exercise, joint mobility, overall function, and strength. PROMIS? (Patient-Reported Outcomes Measurement Information System) scores were reviewed and identified as a rehabilitation concern. Prognosis for therapy is Good due to: current objective clinical presentation . Pt demonstrates hypermobility at L3 with poor core control seen via using the [place] Stabilizer cuff. The patient will benefit from skilled therapy services to meet the goals established for this plan of care as noted below. Classification Pain Mechanism Classification: Neuropathic Low Back Pain Classification: Movement Control Goals for Episode of Care: established 06/04/24 Pt will be able to stand/walk for 1 hour without pain [place] in home exercise program. Perform all therapeutic exercises without pain. Pt will report no pain with sleeping Patient Goals: Get rid of the pain Time Frame for Goals and Treatment : 07/30/24 Planned Interventions, Frequency, and Duration: Current Frequency: 1x/week Duration: 8 weeks Total Number of Visits Planned: 8 Planned Treatment Interventions: Therapeutic exercise (57045), Neuromuscular re-education (86724), Manual therapy (75303), Therapeutic activities (98329), Self-usp management (00437), Patient/Family/Caregiver Education, Gait Training (59393) PLAN FOR NEXT VISIT: Core stability exercises Patient demonstrates good understanding of plan of care and treatment. The above goals and plan of care were discussed and agreed upon by patient/family. SUBJECTIVE: Having the same problem now that she had before her lumbar fusion. She felt amazing after the surgery. Every day is a little different. She does not feel itis sciatic pain. Pain that is sharp, shoots down both legs. Standing for a prolonged period of time. Sleeping is difficult due to pain. Patient Goals: Get rid of the pain Functional Limitations: walking, stair negotiation Prior Level of Function: Independent without limitations Intake Information: Prescription present Previous Treatment: Surgery Red Flags Vertebral Fracture Red Flags: Age >70, Female Vertebral Fracture Clinical Reasoning: Proceed with caution due to the above (1-2) risk factors Abdominal Aortic Aneurysm Red Flags: Age >60 Abdominal Aortic Aneurysm Clinical Reasoning: Proceed with caution Cancer Red Flags: Age >50 or <20 Cancer Clinical Reasoning: Proceed with caution Infection Clinical Reasoning: No identified risk factors. Cauda Equina Syndrome Clinical Reasoning: No identified risk factors. Red Flags - Cervical Cancer Red Flags: Age >50 or <20 Cancer Clinical Reasoning: Proceed with caution Infection Clinical Reasoning: No identified risk factors. Pain: Pain Pain Level: 2 Pain Location: Low Back/Lumbar Spine- Midline Description: Aching PROMIS Scales 06/03/2024 06/02/2024 01/05/2024 Higher is Better Phys Func - T Score 35 (moderate dysfunction) 36 (moderate dysfunction) Phys Func - Percentile 7 8 Self-Eff Symptom - T Score 31 (Low) Self-Eff Symptom - Percentile 3 T-scores: mean of general population = 50. 5 points is clinically meaningfully difference Percentiles provide an indication of how the patient's score ranks in relation to the general population. Higher percentile rankings indicate better function/quality of life. 50th percentile is the average of the general population and indicates half of respondents had a worse score. OBJECTIVE MEASURES WITH LEVEL OF FUNCTION: Posture / Alignment Posture: Good Lumbar Spine AROM Lumbar Flexion: Normal Lumbar Extension: Minimal limitation, Increased pain Lumbar R Side [place]: Moderate limitation Lumbar L Side [place]: Moderate limitation Lumbar R Side-Bend: Normal Lumbar L Side-Bend: Normal Lumbar R Rotation: Minimal limitation Lumbar L Rotation: Minimal limitation Spine Joint Mobility Spine Joint Mobility : Lumbar/Thoracic Joint Mobility - L1: WNL Joint Mobility - L2: WNL Joint Mobility - L3: Hypermobile LE Strength Trunk Strength: Pt very challenge with core stability exercises on the Stabilizer. Poor lumbar control with prone hip extension with the RLE. R Hip Extension: 4/5 L Hip Extension: 4/5 Education: Education Learning Prefer (more content not included)... [facility] 06-04-2024 History of Presen t illness Narrative Images from the original note were not included. Episode Visit Count: 1 Therapist That Will Accept/Oversee The Plan Of Care: Pérez Ling PT Start of Care Date: 06/04/24 Onset Date: 11/24/23 Plan of Care Certification Date: 06/04/24 Next Certification Due Date: 07/09/24 Patient Identified by Name and Date of : Yes REHABILITATION AND SPORTS THERAPY PHYSICAL THERAPY EVALUATION PLAN OF CARE: Assessment: Brent Mosqueda presents with chief complaint of LBP and BLE pain that interferes with walking, stair negotiation . The patient presents with impairments in ADL's, independence in exercise, joint mobility, overall function, and strength. PROMIS (Patient-Reported Outcomes Measurement Information System) scores were reviewed and identified as a rehabilitation concern. Prognosis for therapy is Good due to: current objective clinical presentation . Pt demonstrates hypermobility at L3 with poor core control seen via using the [place] Stabilizer cuff. The patient will benefit from skilled therapy services to meet the goals established for this plan of care as noted below. Classification Pain Mechanism Classification: Neuropathic Low Back Pain Classification: Movement Control Goals for Episode of Care: established 06/04/24 Pt will be able to stand/walk for 1 hour without pain [place] in home exercise program. Perform all therapeutic exercises without pain. Pt will report no pain with sleeping Patient Goals: Get rid of the pain Time Frame for Goals and Treatment : 07/30/24 Planned Interventions, Frequency, and Duration: Current Frequency: 1x/week Duration: 8 weeks Total Number of Visits Planned: 8 Planned Treatment Interventions: Therapeutic exercise (72525), Neuromuscular re-education (46200), Manual therapy (53712), Therapeutic activities (11848), Self-usp management (37781), Patient/Family/Caregiver Education PLAN FOR NEXT VISIT: Core stability exercises Patient demonstrates good understanding of plan of care and treatment. The above goals and plan of care were discussed and agreed upon by patient/family. SUBJECTIVE: Having the same problem now that she had before her lumbar fusion. She felt amazing after the surgery. Every day is a little different. She does not feel itis sciatic pain. Pain that is sharp, shoots down both legs. Standing for a prolonged period of time. Sleeping is difficult due to pain. Patient Goals: Get rid of the pain Functional Limitations: walking, stair negotiation Prior Level of Function: Independent without limitations Intake Information: Prescription present Previous Treatment: Surgery Red Flags Vertebral Fracture Red Flags: Age >70, Female Vertebral Fracture Clinical Reasoning: Proceed with caution due to the above (1-2) risk factors Abdominal Aortic Aneurysm Red Flags: Age >60 Abdominal Aortic Aneurysm Clinical Reasoning: Proceed with caution Cancer Red Flags: Age >50 or <20 Cancer Clinical Reasoning: Proceed with caution Infection Clinical Reasoning: No identified risk factors. Cauda Equina Syndrome Clinical Reasoning: No identified risk factors. Red Flags - Cervical Cancer Red Flags: Age >50 or <20 Cancer Clinical Reasoning: Proceed with caution Infection Clinical Reasoning: No identified risk factors. Pain: Pain Pain Level: 2 Pain Location: Low Back/Lumbar Spine- Midline Description: Aching PROMIS Scales 06/03/2024 06/02/2024 01/05/2024 Higher is Better Phys Func - Score 35 (moderate dysfunction) 36 (moderate dysfunction) Phys Func - Percentile 7 8 Self-Eff Symptom - Score 31 (Low) Self-Eff Symptom - Percentile 3 T-scores: mean of general population = 50. 5 points is clinically meaningfully difference Percentiles provide an indication of how the patient's score ranks in relation to the general population. Higher percentile rankings indicate better function/quality of life. 50th percentile is the average of the general population and indicates half of respondents had a worse score. OBJECTIVE MEASURES WITH LEVEL OF FUNCTION: Posture / Alignment Posture: Good Lumbar Spine AROM Lumbar Flexion: Normal Lumbar Extension: Minimal limitation, Increased pain Lumbar R Side [place]: Moderate limitation Lumbar L Side [place]: Moderate limitation Lumbar R Side-Bend: Normal Lumbar L Side-Bend: Normal Lumbar R Rotation: Minimal limitation Lumbar L Rotation: Minimal limitation Spine Joint Mobility Spine Joint Mobility : Lumbar/Thoracic Joint Mobility - L1: WNL Joint Mobility - L2: WNL Joint Mobility - L3: Hypermobile LE Strength Trunk Strength: Pt very challenge with core stability exercises on the Stabilizer. Poor lumbar control with prone hip extension with the RLE. R Hip Extension: 4/5 L Hip Extension: 4/5 Education: Education Learning Preferences: Demonstration, Explanation, Performance, Printed Materials Barriers: None Learning/educational needs: Home exercise program, Plan of Care, Changes in Plan of Care Education Provided: Yes, see treatment interventions for education provided Education Provided To: Patient Education Mode/Type: Demonstration, Explanation/Discussion, Literature/Printed Materials, Performance Response to Education/Teach Back: States/Identifies, Return Demonstration TREATMENT: PT Treatment Interventions: Therapeutic Exercise Evaluation Therapeutic Exercise: 1: Discussed exam findings, purpose of the HEP and the HEP handout was provided to the pt. HEP discussed in detail with how to safely and properly perform each therapeutic exercise. 2: Supine PPT x 10 3: Hooklying RA set stabilizer 60 mmHg 2 x 8 (Muscle fatiguing at 8 reps as pt is unable to reach 60 mmHg after this point) 4: Prone swimmer x 10 (not given for home) Skilled Intervention: Patient was educated in proper exercise technique and purpose for exercises. Skilled judgment was used in selection of appropriate interventions. Provided written instruction for home exercise program to facilitate proper performance and compliance. Correct performance of therapeutic exercises was facilitated with verbal and visual cuing. Billing * Evaluation Low Complexity: 1 Unit Therapeutic Exercise Treatment Minutes: 25 Skilled Treatment Time Minutes (timed and untimed codes): 53 Total Session Time (minutes): 53 Session Start Time : 0752 Session Stop Time : 0845 Pérez Ling PT documented in this encounter [facility] 05-11-2024 History of Presen t illness Narrative Images from the original note were not included. Stephen Rizo DO [facility] [place] [facility] - Orthopedic Spine Surgeon [address], [place] [address] [address] [place] [address] Phone: [phone] FAX: [phone] SPINE SURGERY OUTPATIENT CONSULT SERVICE DATE: 05/11/2024 LAST OFFICE VISIT: 02/17/2024 DATE OF : 1950 REFERRING PROVIDER: No referring provider defined for this encounter. CHIEF COMPLAINT: Low back pain, bilateral leg pain SURGERY: L4-L5 posterior spinal fusion 11/20/2023 PREOPERATIVE SYMPTOMS: severe bilateral leg pain HISTORY OF PRESENT ILLNESS Brent Mosqueda is a 73 year old female presenting alone. She was last evaluated in office on 02/17/2024 for her 3 month post operative appointment. She reported she continued to improve. She stated she occasionally had leg pain from time to time but it quickly resolved. She noted her constant leg pain resolved. She reported her back pain was continuing to improve. Radiographic imaging of the lumbar spine displayed an L4-5 posterolateral fusion with hardware in stable position. It was discussed for patient to possibly participate in physical therapy, patient stated she did not think she needed t his. It was recommended to follow-up in 3 months for her 6 month appointment prompting today's visit. Today she reports ongoing bilateral low back pain that has worsened over the last 3 months. She states pain starts in her bilateral low back with radiation down the anterior aspect of her bilateral thighs extending to the knees. She states today the lateral aspect of her right hip is most bothersome. She notes her left knee feels weak at times and feels like it is going to give out when ambulating. She denies any loss of bowel or bladder function. She reports treating her symptoms with oral medications with minimal relief. States that the back pain is across her back and not centered over the SI joints. She presents for evaluation, image review and plan of care. 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 Rizo REMOVAL GALLBLADDER FAMILY HISTORY Problem Relation Age of Onset other (multiple myeloma) Mother COPD Father No Known Problems Sister No Known Problems Brother No Known Problems Brother Colon Cancer No Family History Social History Tobacco Use Smoking status: Never Passive exposure: Never Smokeless tobacco: Never Vaping Use Vaping status: Never Used Substance Use Topics Alcohol use: Yes Comment: rare occassion Drug use: Never ALLERGIES No Known Allergies MEDICATIONS: pregabalin (LYRICA) 100 mg capsule Take 1 capsule by mouth three times a day. metoprolol succinate ER (TOPROL XL) 25 mg 24 hr tablet Take 1 tablet by mouth every afternoon. ALIGN 4 mg cap TAKE ONE CAPSULE BY MOUTH ONCE DAILY` hydrOXYzine HCl (ATARAX) 25 mg tablet take one tablet by mouth three times a day as needed DULoxetine (CYMBALTA) 60 mg capsule Take 1 capsule by mouth once daily. ascorbic acid, vitamin C, (VITAMIN C) 500 mg tablet Take 1 tablet by mouth once daily. vit C/E/Zn/coppr/lutein/zeaxan (PRESERVISION AREDS-2 ORAL) Take 1 tablet by mouth twice daily. REVIEW OF SYSTEMS Review of Systems OBJECTIVE: There were no vitals taken for this visit. PHYSICAL EXAM GENERAL APPEARANCE: Well nourished, well developed, and no apparent distress. NEURO PSYCH: Patient oriented to person, place, and time. Mood pleasant. Benign affect. CARDIOVASCULAR: Palpable pulses. No edema noted. No varicosities. SKIN: Head, neck, trunk, and extremities dry, intact and without lesions. LYMPHATICS: No palpable nodes in axillae areas. Groin exam deferred MUSCULOSKELETAL PALPATION: SPINOUS PROCESS: No pain. PARASPINALS: No pain. MUSCLE TONE and BULK: Symmetrical in the lower extremities. MOTOR: Left Right Lower Extremity Hip Flexors 5/5 5/5 Quadriceps 5/5 5/5 Dorsiflexion 5/5 5/5 EHL/EDC 5/5 5/5 Plantar Flexion 5/5 5/5 SENSORY: Sensation intact to light touch L1-S1 GAIT: Able to perform toe and heel walk. Able to perform tandem gait. LONG TRACT SIGNS: No clonus. REFLEXES: symmetric non-brisk DATA REVIEW XR LUMBAR LIMITED 2V AP/LAT 05/11/2024 AP lateral view of the lumbar spine displays an L4-5 posterolateral fusion with hardware in stable position. Early fusion mass is seen bilaterally. ASSESSMENT/PLAN Brent Mosqueda is a 73-year-old female who is 6 months status post L4-5 laminectomy and fusion. -I had a long discussion today with the patient. She has started to do have worsening symptoms since the last time she saw me. Recommend a full course of physical therapy to treat her back pain and bilateral leg pain. If this is not improve her symptoms we will order an MRI of her lumbar spine and a CT scan of her lumbar spine. The x-rays show early fusion mass forming bilaterally at L4-5. It is still possible that she could be developing a pseudoarthrosis at the L4-5 segment. I will see her back after physical therapy is completed. The following portions of the patient's history were reviewed, confirmed, and updated as necessary: allergies, current medications, past family history, past medical history, past social history, past surgical history, problem list, HPI, and ROS obtained by others. Some elements may be copied from a previous office note and have been reviewed/updated where appropriate. All portions reflect current medical decision making from today. The clinical and radiographic findings as well as the risks, benefits and alternatives of treatment have been reviewed in detail with the patient. Advised to call the office if symptoms worsen or new symptoms develop. Patient expressed understanding and is in agreement with plan. Stephen Rizo DO This note was partially generated using [employer] voice recognition system, and there may be some incorrect words, spellings, and punctuation that were not noted in checking the note before saving. documented in this encounter [facility] 05-11-2024 Note HNO ID: [id number] Author: STEPHEN RIZO DO Service: ? Author Type: Physician Type: Progress Notes Filed: 05/11/2024 14:21 Note Text: Stephen Rizo DO [facility] [place] [facility] - Orthopedic Spine Surgeon [address], [place] [address] [address] [place] [address] Phone: [phone] FAX: [phone] SPINE SURGERY OUTPATIENT CONSULT SERVICE DATE: 05/11/2024 LAST OFFICE VISIT: 02/17/2024 DATE OF : 1950 REFERRING PROVIDER: No referring provider defined for this encounter. CHIEF COMPLAINT: Low back pain, bilateral leg pain SURGERY: L4-L5 posterior spinal fusion 11/20/2023 PREOPERATIVE SYMPTOMS: severe bilateral leg pain HISTORY OF PRESENT ILLNESS Brent Mosqueda is a 73 year old female presenting alone. She was last evaluated in office on 02/17/2024 for her 3 month post operative appointment. She reported she continued to improve. She stated she occasionally had leg pain from time to time but it quickly resolved. She noted her constant leg pain resolved. She reported her back pain was continuing to improve. Radiographic imaging of the lumbar spine displayed an L4-5 posterolateral fusion with hardware in stable position. It was discussed for patient to possibly participate in physical therapy, patient stated she did not think she needed t his. It was recommended to follow-up in 3 months for her 6 month appointment prompting today's visit. Today she reports ongoing bilateral low back pain that has worsened over the last 3 months. She states pain starts in her bilateral low back with radiation down the anterior aspect of her bilateral thighs extending to the knees. She states today the lateral aspect of her right hip is most bothersome. She notes her left knee feels weak at times and feels like it is going to give out when ambulating. She denies any loss of bowel or bladder function. She reports treating her symptoms with oral medications with minimal relief. States that the back pain is across her back and not centered over the SI joints. She presents for evaluation, image review and plan of care. 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 Phoenix [employer] FAMILY HISTORY Problem Relation Age of Onset other (multiple myeloma) Mother COPD Father No Known Problems Sister No Known Problems Brother No Known Problems Brother Colon Cancer No Family History Social History Tobacco Use Smoking status: Never Passive exposure: Never Smokeless tobacco: Never Vaping Use Vaping status: Never Used Substance Use Topics Alcohol use: Yes Comment: rare occassion Drug use: Never ALLERGIES No Known Allergies MEDICATIONS: pregabalin (LYRICA) 100 mg capsule Take 1 capsule by mouth three times a day. metoprolol succinate ER (TOPROL XL) 25 mg 24 hr tablet Take 1 tablet by mouth every afternoon. ALIGN 4 mg cap TAKE ONE CAPSULE BY MOUTH ONCE DAILY` hydrOXYzine HCl (ATARAX) 25 mg tablet take one tablet by mouth three times a day as needed DULoxetine (CYMBALTA) 60 mg capsule Take 1 capsule by mouth once daily. ascorbic acid, vitamin C, (VITAMIN C) 500 mg tablet Take 1 tablet by mouth once daily. vit C/E/Zn/coppr/lutein/zeaxan (PRESERVISION AREDS-2 ORAL) Take 1 tablet by mouth twice daily. REVIEW OF SYSTEMS Review of Systems OBJECTIVE: There were no vitals taken for this visit. PHYSICAL EXAM GENERAL APPEARANCE: Well nourished, well developed, and no apparent distress. NEURO PSYCH: Patient oriented to person, place, and time. Mood pleasant. Benign affect. CARDIOVASCULAR: Palpable pulses. No edema noted. No varicosities. SKIN: Head, neck, trunk, and extremities dry, intact and without lesions. LYMPHATICS: No palpable nodes in axillae areas. Groin exam deferred MUSCULOSKELETAL PALPATION: SPINOUS PROCESS: No pain. PARASPINALS: No pain. MUSCLE TONE and BULK: Symmetrical in the lower extremities. MOTOR: Left Right Lower Extremity Hip Flexors 5/5 5/5 Quadriceps 5/5 5/5 Dorsiflexion 5/5 5/5 EHL/EDC 5/5 5/5 Plantar Flexion 5/5 5/5 SENSORY: Sensation intact to light touch L (more content not included)... [facility] 05-03-2024 Telephone encounter Note Pharmacy faxed requesting the following refill Refill(s) Requested: Requested Prescriptions Pending Prescriptions Disp Refills pregabalin (LYRICA) 100 mg capsule [Pharmacy Med Name: PREGABALIN 100MG CAPS] 270 capsule 3 Sig: Take 1 capsule by mouth three times a day. ALLERGIES No Known Allergies (home) [phone] (cell) Last Office Visit Date: 12/09/2023 Last Distance Health Visit: Visit date not found Future Appointment: 06/10/2024 The patients preferred pharmacy has been captured for this encounter? yes Request is for script(s) to be escript to pharmacy. Denisse Proctor LPN [facility] 05-03-2024 Miscellaneous Notes Pharmacy faxed requesting the following refill Refill(s) Requested: Requested Prescriptions Pending Prescriptions Disp Refills pregabalin (LYRICA) 100 mg capsule [Pharmacy Med Name: PREGABALIN 100MG CAPS] 270 capsule 3 Sig: Take 1 capsule by mouth three times a day. ALLERGIES No Known Allergies (home) [phone] (cell) Last Office Visit Date: 12/09/2023 Last Distance Health Visit: Visit date not found Future Appointment: 06/10/2024 The patients preferred pharmacy has been captured for this encounter? yes Request is for script(s) to be escript to pharmacy. Denisse Proctor LPN documented in this encounter [facility] 04-06-2024 Telephone encounter Note Patient phones requesting refills as follows: Appt 06/21/23 Requested Prescriptions Pending Prescriptions Disp Refills ALIGN 4 mg cap [Pharmacy Med Name: ALIGN 4MG CAPS] 42 capsule 1 Sig: TAKE ONE CAPSULE BY MOUTH ONCE DAILY` Please review and advise. Leann Ling MA [facility] 04-06-2024 Miscellaneous Notes Patient phones requesting refills as follows: Appt 06/21/23 Requested Prescriptions Pending Prescriptions Disp Refills ALIGN 4 mg cap [Pharmacy Med Name: ALIGN 4MG CAPS] 42 capsule 1 Sig: TAKE ONE CAPSULE BY MOUTH ONCE DAILY` Please review and advise. Leann Ling MA documented in this encounter [facility] 03-22-2024 Miscellaneous Notes Pharmacy requesting refill. Okay to refill? documented in this encounter [facility] 03-22-2024 Telephone encounter Note Pharmacy requesting refill. Okay to refill? [facility] 02-17-2024 History of Presen t illness Narrative Images from the original note were not included. Stephen Rizo, [facility]oped[facility] - Orthopedic Spine Surgeon [facility] [address] [place] [id number] Phone: [phone] ([phone] FAX: [phone] SPINE SURGERY POST-OP FOLLOW UP SERVICE DATE: 02/17/2024 PATIENT NAME: Ms.Penny Han Mosqueda DATE OF : 1950 SURGERY DATE: 11/20/2023 SURGERY: L4-L5 posterior spinal fusion PREOPERATIVE SYMPTOMS: severe bilateral leg pain Brent Mosqueda is seen for 3 month post operative follow up. She was last evaluated in office on 01/06/2024 for her 6 week post operative appointment. She reported she continued to have resolution of her bilateral leg pain. She stated she was still having back pain, however she noted it was steadily improving. She denied any fevers or drainage from her incision. Radiographic imaging of the lumbar spine displayed an L4-5 posterolateral fusion with hardware in stable position. It was discussed that if she did not have resolution of her back pain at the 3 month kip, will restart the patient in physical therapy. It was recommended to follow-up in 6 months for her 3-month appointment prompting today's visit. Today she reports that she continues to improve. States that she occasionally gets leg pain from time to time but it quickly resolves. States that she does not have any constant leg pain anymore. States that her back is continuing to improve. She is very happy with her surgical outcome. She presents for evaluation, image review and plan of care. PREVIOUS SURGERY: None Review of Systems ALLERGIES No Known Allergies Current Outpatient Medications Medication Sig Dispense Refill metoprolol succinate ER (TOPROL XL) 25 mg 24 hr tablet take one tablet by mouth every day 90 tablet 0 ALIGN 4 mg cap TAKE ONE CAPSULE BY MOUTH ONCE DAILY` 42 capsule 1 DULoxetine (CYMBALTA) 60 mg capsule Take 1 capsule by mouth once daily. 90 capsule 3 pregabalin (LYRICA) 100 mg capsule Take 1 capsule by mouth three times a day. (Patient taking differently: Take 100 mg by mouth two times a day.) 270 capsule 3 ascorbic acid, vitamin C, (VITAMIN C) 500 mg tablet Take 1 tablet by mouth once daily. 30 tablet 0 vit C/E/Zn/coppr/lutein/zeaxan (PRESERVISION AREDS-2 ORAL) Take 1 tablet by mouth twice daily. No current facility-administered medications for this visit. OBJECTIVE: There were no vitals taken for this visit. PHYSICAL EXAM GENERAL APPEARANCE: Well nourished, well developed, and no apparent distress. NEURO PSYCH: Patient oriented to person, place, and time. Mood pleasant. Benign affect. CARDIOVASCULAR: Palpable pulses. No edema noted. No varicosities. SKIN: Head, neck, trunk, and extremities dry, intact and without lesions. LYMPHATICS: No palpable nodes in axillae areas. Groin exam deferred MUSCULOSKELETAL PALPATION: SPINOUS PROCESS: No pain. PARASPINALS: No pain. MUSCLE TONE and BULK: Symmetrical in the lower extremities. MOTOR: Left Right Lower Extremity Hip Flexors 5/5 5/5 Quadriceps 5/5 5/5 Dorsiflexion 5/5 5/5 EHL/EDC 5/5 5/5 Plantar Flexion 5/5 5/5 SENSORY: Sensation intact to light touch L1-S1 GAIT: Able to perform toe and heel walk. Able to perform tandem gait. LONG TRACT SIGNS: No clonus. REFLEXES: symmetric non-brisk DATA REVIEW XR LUMBAR LIMITED 2V AP/LAT AP lateral view of the lumbar spine displays an L4-5 posterolateral fusion with hardware in stable position ASSESSMENT/PLAN Brent Mosqueda is a 73-year-old female who is 3-month status post L4-5 laminectomy and fusion. -I had a long discussion today with the patient. She is doing great since her surgery. She does occasionally get some leg pain but it does not last long. States that her back pain is continue to improve. Discussed possibly participating with physical therapy today, the patient states she does not think she needs this. I will see the patient back in 3 months for her 6-month appointment. The following portions of the patient's history were reviewed, confirmed, and updated as necessary: allergies, current medications, past family history, past medical history, past social history, past surgical history, problem list, HPI, and ROS obtained by others. Some elements may be copied from a previous office note and have been reviewed/updated where appropriate. All portions reflect current medical decision making from today. The clinical and radiographic findings as well as the risks, benefits and alternatives of treatment have been reviewed in detail with the patient. Advised to call the office if symptoms worsen or new symptoms develop. Patient expressed understanding and is in agreement with plan. Stephen Rizo DO This note was partially generated using [employer] voice recognition system, and there may be some incorrect words, spellings, and punctuation that were not noted in checking the note before saving. documented in this encounter [facility] 02-16-2024 History of Presen t illness Narrative Radiology Service Progress Note PATIENT NAME: Brent Mosqueda DATE OF SERVICE: February 16, 2024 TIME: 3:50 PM PATIENT IDENTITY VERIFICATION COMPLETED USING TWO (2) IDENTIFIERS: Name and Date of confirmed by patient verbally. FALL SCREENING: Has the patient had 2 falls in the last year or 1 fall with injury or currently using an Ambulatory Assistive Device (Walker, Cane, Wheelchair, Crutches, etc.)? No PATIENT GENDER DATA: Female. status: : No status: NO. PATIENT RELEVANT IMPLANT DATA REVIEWED: Not Applicable PATIENT PRESENTS WITH AN IMPLANTABLE OR ATTACHED NIGHT FILLER: No RADIOLOGY DEPARTMENT: LUMBAR AP/LAT WT BEARING PERIPHERAL IV DATA: Not applicable SIGNED BY: Aisha Fernandez RT(R) February 16, 2024 3:50 PM documented in this encounter [facility] 01-14-2024 Miscellaneous Notes Pharmacy faxed requesting the following refill Refill(s) Requested: Requested Prescriptions Pending Prescriptions Disp Refills metoprolol succinate ER (TOPROL XL) 25 mg 24 hr tablet [Pharmacy Med Name: METOPROLOL SUCCINATE ER 25MG TB24] 90 tablet 0 Sig: take one tablet by mouth every day ALLERGIES No Known Allergies (home) [phone] (cell) Last Office Visit Date: 12/09/2023 Last Distance Health Visit: Visit date not found Future Appointment: 06/10/2024 The patients preferred pharmacy has been captured for this encounter? yes Request is for script(s) to be escript to pharmacy. Denisse Proctor LPN documented in this encounter [facility] 01-14-2024 Telephone encounter Note Pharmacy faxed requesting the following refill Refill(s) Requested: Requested Prescriptions Pending Prescriptions Disp Refills metoprolol succinate ER (TOPROL XL) 25 mg 24 hr tablet [Pharmacy Med Name: METOPROLOL SUCCINATE ER 25MG TB24] 90 tablet 0 Sig: take one tablet by mouth every day ALLERGIES No Known Allergies (home) [phone] (cell) Last Office Visit Date: 12/09/2023 Last Distance Health Visit: Visit date not found Future Appointment: 06/10/2024 The patients preferred pharmacy has been captured for this encounter? yes Request is for script(s) to be escript to pharmacy. Denisse Proctor LPN [facility] 01-09-2024 Telephone encounter Note Patient phones requesting refills as follows: Requested Prescriptions Pending Prescriptions Disp Refills ALIGN 4 mg cap [Pharmacy Med Name: ALIGN 4MG CAPS] 42 capsule 1 Sig: TAKE ONE CAPSULE BY MOUTH ONCE DAILY` Please review and advise. Leann Ling MA [facility] 01-09-2024 Miscellaneous Notes Patient phones requesting refills as follows: Requested Prescriptions Pending Prescriptions Disp Refills ALIGN 4 mg cap [Pharmacy Med Name: ALIGN 4MG CAPS] 42 capsule 1 Sig: TAKE ONE CAPSULE BY MOUTH ONCE DAILY` Please review and advise. Leann Ling MA documented in this encounter [facility] 01-06-2024 History of Presen t illness Narrative Images from the original note were not included. Stephen Rizo, [facility] General Orthopedics - Orthopedic Spine Surgeon [address] [facility] [address] [place] [address] Phone: [phone] ([phone] FAX: [phone] SPINE SURGERY POST-OP FOLLOW UP SERVICE DATE: 01/06/2024 PATIENT NAME: Ms.Penny Han Mosqueda DATE OF : 1950 SURGERY DATE: 11/20/2023 SURGERY: L4-L5 posterior spinal fusion PREOPERATIVE SYMPTOMS: severe bilateral leg pain Brent Mosqueda is seen for 6 week post operative follow up. She was last evaluated on 12/05/2023 for her 2 week post operative appointment. She reported she was doing great post operatively. She stated she had some intermittent tightness and occasional spasms to the middle lower back. She noted complete resolution of her bilateral leg pain. She reported her right leg weakness continued to improve since surgery. She denied any paresthesia, falls or bowel and bladder incontinence. She stated she was taking the Flexeril once a day and it was providing relief of symptoms. Radiographic imaging of the lumbar spine displayed an L4-5 posterior lateral fusion with hardware in stable position. It was recommended to follow-up in 4 weeks for her 6-week appointment prompting today's visit. Today she reports she continues to have complete resolution of her bilateral leg pain. States that she still getting back pain. Denies any drainage from her incision. Denies any fevers. States her back pain is steadily improving. She is very happy with the surgical outcome. She presents for evaluation, image review and plan of care. PREVIOUS SURGERY: None Review of Systems ALLERGIES No Known Allergies Current Outpatient Medications Medication Sig Dispense Refill hydrOXYzine HCl (ATARAX) 25 mg tablet Take 1 tablet by mouth three times a day as needed. 30 tablet 2 metoprolol succinate ER (TOPROL XL) 25 mg 24 hr tablet Take 1 tablet by mouth once daily. 30 tablet 2 ALIGN 4 mg cap TAKE ONE CAPSULE BY MOUTH ONCE DAILY` 42 capsule 1 DULoxetine (CYMBALTA) 60 mg capsule Take 1 capsule by mouth once daily. 90 capsule 3 pregabalin (LYRICA) 100 mg capsule Take 1 capsule by mouth three times a day. (Patient taking differently: Take 100 mg by mouth two times a day.) 270 capsule 3 ascorbic acid, vitamin C, (VITAMIN C) 500 mg tablet Take 1 tablet by mouth once daily. 30 tablet 0 vit C/E/Zn/coppr/lutein/zeaxan (PRESERVISION AREDS-2 ORAL) Take 1 tablet by mouth twice daily. No current facility-administered medications for this visit. Facility-Administered Medications Ordered in Other Visits Medication Dose Route Frequency Provider Last Rate Last Admin lidocaine (PF) 10 mg/mL (1 %) 1-2 mg injection (XYLOCAINE) 0.1-0.2 mL INTRADERMAL PRN Shy Barrios MD lactated ringers iv infusion 30 mL/hr INTRAVENOUS CONTINUOUS Shy Barrios MD OBJECTIVE: There were no vitals taken for this visit. PHYSICAL EXAM GENERAL APPEARANCE: Well nourished, well developed, and no apparent distress. NEURO PSYCH: Patient oriented to person, place, and time. Mood pleasant. Benign affect. CARDIOVASCULAR: Palpable pulses. No edema noted. No varicosities. SKIN: Head, neck, trunk, and extremities dry, intact and without lesions. LYMPHATICS: No palpable nodes in axillae areas. Groin exam deferred MUSCULOSKELETAL PALPATION: SPINOUS PROCESS: No pain. PARASPINALS: No pain. MUSCLE TONE and BULK: Symmetrical in the lower extremities. MOTOR: Left Right Lower Extremity Hip Flexors 5/5 5/5 Quadriceps 5/5 5/5 Dorsiflexion 5/5 5/5 EHL/EDC 5/5 5/5 Plantar Flexion 5/5 5/5 SENSORY: Sensation intact to light touch L1-S1 GAIT: Able to perform toe and heel walk. Able to perform tandem gait. LONG TRACT SIGNS: No clonus. REFLEXES: symmetric non-brisk WOUND ASSESSMENT: Healed DATA REVIEW XR LUMBAR LIMITED 2V AP/LAT AP lateral view lumbar spine displays an L4-5 posterolateral fusion with hardware in stable position. ASSESSMENT/PLAN Brent Mosqueda is a 73-year-old female who is 6 weeks status post L4-5 laminectomy and fusion. -I had a long discussion today with the patient. She is doing great since her surgery. She has no leg pain. She continues to have some back pain. We will restart the patient in physical therapy at the 3-month kip if she continues to not have resolution of her back pain. Encouraged to continue to walk every day. I will see the patient back in 6 weeks for her 3-month appointment. The following portions of the patient's history were reviewed, confirmed, and updated as necessary: allergies, current medications, past family history, past medical history, past social history, past surgical history, problem list, HPI, and ROS obtained by others. Some elements may be copied from a previous office note and have been reviewed/updated where appropriate. All portions reflect current medical decision making from today. The clinical and radiographic findings as well as the risks, benefits and alternatives of treatment have been reviewed in detail with the patient. Advised to call the office if symptoms worsen or new symptoms develop. Patient expressed understanding and is in agreement with plan. Stephen Rizo DO This note was partially generated using [employer] voice recognition system, and there may be some incorrect words, spellings, and punctuation that were not noted in checking the note before saving. documented in this encounter [facility] 01-05-2024 History of Presen t illness Narrative Radiology Service Progress Note PATIENT NAME: Brent Mosqueda DATE OF SERVICE: January 05, 2024 TIME: 12:38 PM PATIENT IDENTITY VERIFICATION COMPLETED USING TWO (2) IDENTIFIERS: Name and Date of confirmed by patient verbally. FALL SCREENING: Has the patient had 2 falls in the last year or 1 fall with injury or currently using an Ambulatory Assistive Device (Walker, Cane, Wheelchair, Crutches, etc.)? No PATIENT GENDER DATA: Female. status: : No status: NO. PATIENT RELEVANT IMPLANT DATA REVIEWED: Yes PATIENT PRESENTS WITH AN IMPLANTABLE OR ATTACHED NIGHT FILLER: No RADIOLOGY DEPARTMENT: General X-ray: Exam(s) Completed: Spine X-Ray(s): Lumbar AP / LAT / L5-S1 No L5-S1 ordered PERIPHERAL IV DATA: Not applicable SIGNED BY: RT Cosme(R) January 05, 2024 12:38 PM documented in this encounter [facility] 12-29-2023 Telephone encounter Note I attempted to contact patient regarding upcoming appointment with Dr. Rizo. I left a HIPAA compliant voicemail regarding obtaining imaging prior to scheduled appointment. I provided the office telephone number if patient had any questions or concerns. BROOKLYN Dalton [facility] 12-29-2023 Miscellaneous Notes I attempted to contact patient regarding upcoming appointment with Dr. Rizo. I left a HIPAA compliant voicemail regarding obtaining imaging prior to scheduled appointment. I provided the office telephone number if patient had any questions or concerns. BROOKLYN Dalton documented in this encounter [facility] 12-12-2023 Miscellaneous Notes Patient [employer] message requesting the following refill Refill(s) Requested: Requested Prescriptions Pending Prescriptions Disp Refills tiZANidine (ZANAFLEX) 2 mg tablet 21 tablet 0 Sig: Take 1 tablet by mouth every 8 hours as needed for up to 7 days. ALLERGIES No Known Allergies (home) [phone] (cell) Last Office Visit Date: 12/05/2023 Last Distance Health Visit: Visit date not found Future Appointment: 01/06/2024 The patients preferred pharmacy has been captured for this encounter? yes Request is for script(s) to be escript to pharmacy. Krystle Juárez RN documented in this encounter [facility] 12-12-2023 Telephone encounter Note Patient [employer] message requesting the following refill Refill(s) Requested: Requested Prescriptions Pending Prescriptions Disp Refills tiZANidine (ZANAFLEX) 2 mg tablet 21 tablet 0 Sig: Take 1 tablet by mouth every 8 hours as needed for up to 7 days. ALLERGIES No Known Allergies (home) [phone] (cell) Last Office Visit Date: 12/05/2023 Last Distance Health Visit: Visit date not found Future Appointment: 01/06/2024 The patients preferred pharmacy has been captured for this encounter? yes Request is for script(s) to be escript to pharmacy. Krystle Juárez RN [facility] 12-09-2023 History of Presen t illness Narrative Images from the original note were not included. [facility] [address] [place] [id number] Date of Evaluation: 12/09/2023 Patient Name: Brent Mosqueda : 1950 Chief Complaint: Patient presents with: Transition Of Care: Surgery - spinal fusion L4 L5 Dr. Phoenix Baer this afternoon and now in 01/02 pain Nursing Intake: There are no exam notes on file for this visit. Subjective Ms. Mosqueda is a 73 year old female who presents with the following complaint(s): The history is provided by the patient. No sign language instructor was used. Back Pain This is a chronic (Post Spine Fusion L5 L5) problem. The current episode started more than 1 week ago. Progression since onset: since spinal fusion- pain has resolved. Episode today of possible straing caused pain. Pertinent negatives include no chest pain, no numbness, no headaches and no weakness. Review of Systems Constitutional: Negative for fatigue and unexpected weight change. HENT: Negative for nosebleeds. Eyes: Negative for redness and visual disturbance. Respiratory: Negative for apnea, cough and shortness of breath. Cardiovascular: Negative for chest pain, palpitations and leg swelling. Genitourinary: Negative for hematuria. Musculoskeletal: Positive for back pain. Neurological: Negative for dizziness, weakness, light-headedness, numbness and headaches. Hematological: Does not bruise/bleed easily. Psychiatric/Behavioral: The patient is not nervous/anxious. 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 Rizo REMOVAL GALLBLADDER FAMILY HISTORY Problem Relation Age of Onset other (multiple myeloma) Mother COPD Father No Known Problems Sister No Known Problems Brother No Known Problems Brother Colon Cancer No Family History Social History Tobacco Use Smoking status: Never Passive exposure: Never Smokeless tobacco: Never Vaping Use Vaping Use: Never used Substance Use Topics Alcohol use: Yes Comment: rare occassion Drug use: Never Current Outpatient Medications Medication Sig tiZANidine (ZANAFLEX) 2 mg tablet Take 1 tablet by mouth every 8 hours as needed for up to 21 doses. hydrOXYzine HCl (ATARAX) 25 mg tablet Take 1 tablet by mouth three times a day as needed. metoprolol succinate ER (TOPROL XL) 25 mg 24 hr tablet Take 1 tablet by mouth once daily. ALIGN 4 mg cap TAKE ONE CAPSULE BY MOUTH ONCE DAILY` DULoxetine (CYMBALTA) 60 mg capsule Take 1 capsule by mouth once daily. ascorbic acid, vitamin C, (VITAMIN C) 500 mg tablet Take 1 tablet by mouth once daily. vit C/E/Zn/coppr/lutein/zeaxan (PRESERVISION AREDS-2 ORAL) Take 1 tablet by mouth twice daily. pregabalin (LYRICA) 100 mg capsule Take 1 capsule by mouth three times a day. (Patient taking differently: Take 100 mg by mouth two times a day.) No current facility-administered medications for this visit. Facility-Administered Medications Ordered in Other Visits Medication Dose Route Frequency lidocaine (PF) 10 mg/mL (1 %) 1-2 mg injection (XYLOCAINE) 0.1-0.2 mL INTRADERMAL PRN lactated ringers iv infusion 30 mL/hr INTRAVENOUS CONTINUOUS I have confirmed and edited as necessary the past medical, family and social histories, HPI, and ROS obtained by others. Objective BP 100/60 Pulse 71 Ht 5' 2 (1.58m) Wt 181 lb (82.1kg) SpO2 96% BMI 33.10 kg/(m^2). Physical Exam Vitals and nursing note reviewed. Constitutional: General: She is not in acute distress. Appearance: Normal appearance. She is well-developed. She is not ill-appearing. HENT: Head: Normocephalic. Right Ear: Tympanic membrane, ear canal and external ear normal. There is no impacted cerumen. Left Ear: Tympanic membrane, ear canal and external ear normal. There is no impacted cerumen. Nose: Nose normal. Mouth/Throat: Mouth: Mucous membranes are moist. Pharynx: Oropharynx is clear. Uvula midline. No oropharyngeal exudate or posterior oropharyngeal erythema. Eyes: General: Lids are normal. Vision grossly intact. Gaze aligned appropriately. No scleral icterus. Right eye: No discharge. Left eye: No discharge. Extraocular Movements: Extraocular movements intact. Conjunctiva/sclera: Conjunctivae normal. Pupils: Pupils are equal, round, and reactive to light. Neck: Thyroid: No thyroid mass, thyromegaly or thyroid tenderness. Vascular: No carotid bruit. Trachea: Trachea and phonation normal. Cardiovascular: Rate and Rhythm: Normal rate and regular rhythm. Pulses: Normal pulses. Heart sounds: Normal heart sounds. Pulmonary: Effort: Pulmonary effort is normal. Breath sounds: Normal breath sounds. Abdominal: General: Abdomen is flat. Bowel sounds are normal. Palpations: Abdomen is soft. Musculoskeletal: General: Normal range of motion. Right shoulder: Normal. Left shoulder: Normal. Cervical back: Normal, full passive range of motion without pain and neck supple. No tenderness. No spinous process tenderness. Thoracic back: Normal. Lumbar back: Normal. Right knee: Normal. Left knee: Normal. Right lower leg: No edema. Left lower leg: No edema. Lymphadenopathy: Cervical: No cervical adenopathy. Skin: General: Skin is warm and dry. Neurological: General: No focal deficit present. Mental Status: She is alert and oriented to person, place, and time. Mental status is at baseline. Sensory: Sensation is intact. Motor: Motor function is intact. Psychiatric: Attention and Perception: Attention and perception normal. Mood and Affect: Mood normal. Speech: Speech normal. Behavior: Behavior normal. Thought Content: Thought content normal. Judgment: Judgment normal. Data Reviewed: No new labs ASSESSMENT/PLAN: 1. S/P lumbar fusion - ICD9: V45.4, ICD10: Z98.1 (primary diagnosis) - Patient doing well, think today pain comes from spasm or strain on the back. No healing concerns. 2. Lumbar radiculopathy - ICD9: 724.4, ICD10: M54.16 3. Class 1 obesity with body mass index (BMI) of 33.0 to 33.9 in adult, unspecified obesity type, unspecified whether serious comorbidity present - ICD9: 278.00, V85.33, ICD10: E66.9, Z68.33 Return if symptoms worsen or fail to improve. Portia Calhoun DO Attestation: Scribe Attestation: The patient is seen and examined by Dr. Calhoun and the following reflects his/her service. Scribed by Alex Yu December 09, 2023 4:24 PMProvider Attestation: I, Portia Calhoun DO personally performed the services described in this documentation. All medical record entries made by the scribe were at my direction and in my presence. I have reviewed the chart and discharge instructions (if applicable) and agree that the record reflects my personal performance and is accurate and complete. Electronically Signed: Portia Calhoun DO, December 09, 2023 4:32 PM documented in this encounter [facility] 12-05-2023 History of Presen t illness Narrative Images from the original note were not included. Stephen Rizo DO [facility] [place] [facility] - Orthopedic Spine Surgeon [address], [place] [address] [address] [place] [address] Phone: [phone] FAX: [phone] SPINE SURGERY POST-OP FOLLOW UP SERVICE DATE: 12/05/2023 PATIENT NAME: Ms.Penny Han Mosqueda DATE OF : 1950 SURGERY DATE: 11/20/2023 SURGERY: L4-L5 posterior spinal fusion PREOPERATIVE SYMPTOMS: severe bilateral leg pain Brent Mosqeuda is seen for 2 week post operative follow up. Today she reports she is doing great post operatively. She states she has some intermittent tightness and occasional spasms to the middle lower back. She notes complete resolution of her bilateral leg pain. She reports her right leg weakness continues to improve since surgery. She denies any paresthesia, falls or bowel and bladder incontinence. She states she is taking the Flexeril once a day and it is providing relief of symptoms. She is very happy with her surgical outcome. INCISION: healing PREVIOUS SURGERY: None Review of Systems Constitutional: Negative for chills, diaphoresis and fever. HENT: Negative for congestion, trouble swallowing and voice change. Eyes: Negative for pain, discharge and visual disturbance. Respiratory: Negative for cough, shortness of breath and wheezing. Cardiovascular: Negative for chest pain, palpitations and leg swelling. Gastrointestinal: Negative for constipation, diarrhea, nausea and vomiting. Endocrine: Negative for cold intolerance, heat intolerance and polyphagia. Genitourinary: Negative for difficulty urinating, frequency and urgency. Musculoskeletal: Positive for back pain. Negative for gait problem and neck pain. Skin: Negative for pallor, rash and wound. Allergic/Immunologic: Negative for environmental allergies, food allergies and immunocompromised state. Neurological: Negative for dizziness, weakness and numbness. Hematological: Does not bruise/bleed easily. Psychiatric/Behavioral: Negative for agitation and confusion. The patient is not nervous/anxious. ALLERGIES No Known Allergies Current Outpatient Medications Medication Sig Dispense Refill tiZANidine (ZANAFLEX) 2 mg tablet Take 1 tablet by mouth every 8 hours as needed for up to 21 doses. 21 tablet 0 hydrOXYzine HCl (ATARAX) 25 mg tablet Take 1 tablet by mouth three times a day as needed. 30 tablet 2 metoprolol succinate ER (TOPROL XL) 25 mg 24 hr tablet Take 1 tablet by mouth once daily. 30 tablet 2 ALIGN 4 mg cap TAKE ONE CAPSULE BY MOUTH ONCE DAILY` 42 capsule 1 DULoxetine (CYMBALTA) 60 mg capsule Take 1 capsule by mouth once daily. 90 capsule 3 pregabalin (LYRICA) 100 mg capsule Take 1 capsule by mouth three times a day. (Patient taking differently: Take 100 mg by mouth two times a day.) 270 capsule 3 ascorbic acid, vitamin C, (VITAMIN C) 500 mg tablet Take 1 tablet by mouth once daily. 30 tablet 0 vit C/E/Zn/coppr/lutein/zeaxan (PRESERVISION AREDS-2 ORAL) Take 1 tablet by mouth twice daily. No current facility-administered medications for this visit. Facility-Administered Medications Ordered in Other Visits Medication Dose Route Frequency Provider Last Rate Last Admin lidocaine (PF) 10 mg/mL (1 %) 1-2 mg injection (XYLOCAINE) 0.1-0.2 mL INTRADERMAL PRN Shy Barrios MD lactated ringers iv infusion 30 mL/hr INTRAVENOUS CONTINUOUS Shy Barrios MD OBJECTIVE: BP 114/72 (BP Site: Left Arm, BP Position: Sitting, BP Cuff Size: Large Adult) Pulse 68 Resp 16 Wt 184 lb 4.9 oz (83.6 kg) SpO2 95% BMI 33.71 kg/m PHYSICAL EXAM GENERAL APPEARANCE: Well nourished, well developed, and no apparent distress. NEURO PSYCH: Patient oriented to person, place, and time. Mood pleasant. Benign affect. CARDIOVASCULAR: Palpable pulses. No edema noted. No varicosities. SKIN: Head, neck, trunk, and extremities dry, intact and without lesions. LYMPHATICS: No palpable nodes in cervical or axillae areas. Groin exam deferred MUSCULOSKELETAL PALPATION: SPINOUS PROCESS: No pain. PARASPINALS: No pain. MUSCLE TONE and BULK: Symmetrical in the upper & lower extremities. MOTOR: Upper Extremity Left Right Deltoids 5/5 5/5 Biceps 5/5 5/5 Triceps 5/5 5/5 Data Visualization Developer 5/5 5/5 Interossei 5/5 5/5 Lower Extremity Hip Flexors 5/5 5/5 Quadriceps 5/5 5/5 Dorsiflexion 5/5 5/5 EHL/EDC 5/5 5/5 Plantar Flexion 5/5 5/5 SENSORY: Sensation intact to light touch C5-T1, L1-S1 GAIT: Able to perform toe and heel walk. Able to perform tandem gait. LONG TRACT SIGNS: No clonus. No Hoffmanns. REFLEXES: symmetric non-brisk WOUND ASSESSMENT: Healing DATA REVIEW XR lumbar spine AP lateral view lumbar spine displays an L4-5 posterior lateral fusion with hardware in stable position. ASSESSMENT/PLAN Brent Mosqueda is a 73-year-old female who is 2 weeks status post L4-5 laminectomy and fusion. -I had a long discussion today with the patient. She is doing great since surgery. She has complete resolution of her bilateral leg pain. She has no complaints at this time. No drainage from her incision. No fevers. I will see the patient back in 4 weeks for her 6-week appointment. The following portions of the patient's history were reviewed, confirmed, and updated as necessary: allergies, current medications, past family history, past medical history, past social history, past surgical history, problem list, HPI, and ROS obtained by others. Some elements may be copied from a previous office note and have been reviewed/updated where appropriate. All portions reflect current medical decision making from today. The clinical and radiographic findings as well as the risks, benefits and alternatives of treatment have been reviewed in detail with the patient. Advised to call the office if symptoms worsen or new symptoms develop. Patient expressed understanding and is in agreement with plan. Stephen Rizo DO This note was partially generated using [employer] voice recognition system, and there may be some incorrect words, spellings, and punctuation that were not noted in checking the note before saving. documented in this encounter [facility] 12-04-2023 History of Presen t illness Narrative Radiology Service Progress Note PATIENT NAME: Brent Mosqueda DATE OF SERVICE: December 04, 2023 TIME: 4:48 PM PATIENT IDENTITY VERIFICATION COMPLETED USING TWO (2) IDENTIFIERS: Name and Date of confirmed by patient verbally. FALL SCREENING: Has the patient had 2 falls in the last year or 1 fall with injury or currently using an Ambulatory Assistive Device (Walker, Cane, Wheelchair, Crutches, etc.)? No PATIENT GENDER DATA: Female. status: : No status: NO. PATIENT RELEVANT IMPLANT DATA REVIEWED: Yes PATIENT PRESENTS WITH AN IMPLANTABLE OR ATTACHED NIGHT FILLER: No RADIOLOGY DEPARTMENT: General X-ray: Exam(s) Completed: Spine X-Ray(s): Lumbar AP / LAT / L5-S1 PERIPHERAL IV DATA: Not applicable SIGNED BY: RT Ileana(R) December 04, 2023 4:48 PM documented in this encounter [facility] 12-04-2023 Telephone encounter Note I attempted to contact patient regarding upcoming appointment with Dr. Rizo. I left a HIPAA compliant voicemail regarding obtaining imaging prior to scheduled appointment. I provided the office telephone number if patient had any questions or concerns. BROOKLYN Dalton [facility] 12-04-2023 Miscellaneous Notes I attempted to contact patient regarding upcoming appointment with Dr. Rizo. I left a HIPAA compliant voicemail regarding obtaining imaging prior to scheduled appointment. I provided the office telephone number if patient had any questions or concerns. BROOKLYN Dalton documented in this encounter [facility] 11-26-2023 Telephone encounter Note Called patient, left VM calling her to obtain x-rays prior to appt with Dr Rizo on 12/05/2023. Left phone # and ext. to call back. Larissa Salgado RN [facility] 11-26-2023 Miscellaneous Notes Called patient, left VM calling her to obtain x-rays prior to appt with Dr Rizo on 12/05/2023. Left phone # and ext. to call back. Larissa Salgado RN documented in this encounter [facility] 11-24-2023 History of Presen t illness Narrative TRANSITIONAL CARE MANAGEMENT (TCM) COMMUNITY MONITORING PROGRAM - RACINE SUMMARY: Pt discharged from [facility] on 11/23/23. RISK 8 Admitted for: Lumbar radiculopathy Surgeries During Hospitalization: Procedure(s) (LRB): FUSION LUMBAR POSTERIOR LEVEL 1--L4-5 Laminectomy and Fusion (N/A) DECOMPRESSION LAMINECTOMY LUMBAR POSTERIOR LEVEL 1 (N/A) POSTERIOR NON-SEGMENTAL INSTRUMENTATION FOLLOWING LUMBAR FUSION 1 LEVEL PDFI (N/A) ALLOGRAFT FOR SPINE SURGERY MORSELIZED (N/A) AUTOGRAFT FOR SPINE SURGERY ONLY, OBTAINED FROM SAME INCISION (N/A) [employer] STEREOTACTIC COMPUTER-ASSISTED NAVIGATIONAL PROCEDURE SPINAL (N/A) Patient seen Inpatient KHALIDA Visit? No. Patient seen ICARE Program? N/A. Contact made with patient: Yes Hi my name is Susan King RN and I am calling from the [facility] on behalf of your PCP, Portia Calhoun, DO I understand you were recently in the hospital so I am calling to check in with you to ensure you are feeling well now that you re home. Do you mind if I ask you a few questions related to your hospital stay and well-being Yes Contact with patient post discharge, spoke to patient. Patient identified by name and . Do you feel your health is BETTER, WORSE, or the SAME since leaving the hospital? Better Pt is getting better. States that she needs a pain pill right now because she is stuck and can't move. Per pt, she has quite a bit of back pain. States that the pain in her legs is completely gone. The Oxycodone helps. She doesn't feel that the muscle relaxant helps her pain. She doesn't feel a whole lot stronger yet. Pt isn't driving - she will f/u w/ Ortho about when she can drive again. ACTION TAKEN: Patient indicated symptoms are better or same, no action required. Continue outreach. N/A MEDICATIONS: Many patients have questions or concerns about their medications once they are home. Do you have any questions about taking your medications or which medication you should be on? No Do you need any medication refills at this time, including any of the medications you might take only when needed? No ACTION TAKEN: No action required For RNs or Pharmacy completing outreach ONLY, was a medication review completed? Yes Current/Discharged Medications reviewed: Yes Medication List Medication Directions Comments ALIGN 4 mg cap TAKE ONE CAPSULE BY MOUTH ONCE DAILY` Verified ascorbic acid, vitamin C, (VITAMIN C) 500 mg tablet Take 1 tablet by mouth once daily. Verified DULoxetine (CYMBALTA) 60 mg capsule Take 1 capsule by mouth once daily. Verified hydrOXYzine HCl (ATARAX) 25 mg tablet Take 1 tablet by mouth three times a day as needed. Verified metoprolol succinate ER (TOPROL XL) 25 mg 24 hr tablet Take 1 tablet by mouth once daily. Verified oxyCODONE IR (ROXICODONE) 5 mg immediate release tablet Take 1 tablet by mouth every 6 hours as needed for up to 7 days. Verified pregabalin (LYRICA) 100 mg capsule Take 1 capsule by mouth three times a day. Patient taking differently: Take 100 mg by mouth two times a day. Verified senna-docusate (SENNA-S) 8.6-50 mg per tablet Take 1 tablet by mouth two times a day for 10 days. Hold for loose stool Verified tiZANidine (ZANAFLEX) 2 mg tablet Take 1 tablet by mouth every 8 hours as needed for up to 21 doses. Verified vit C/E/Zn/coppr/lutein/zeaxan (PRESERVISION AREDS-2 ORAL) Take 1 tablet by mouth twice daily. Pt states that she is supposed to hold this med for 1wk since it has Vitamin E SOCIAL: We would like to make sure you have what you need so that your basics needs are met - including your personal safety. HEALTH LEADS SCREENING TOOL QUESTIONS: Do you often feel you lack companionship? No Do you ever need help reading or understanding hospital materials? No In the last 12 months, have you changed how you take medications to save money? No In the past 12 months, has lack of transportation kept you from medical appointments, work or getting things you need like food, or supplies? No In the last 12 months, did you ever eat less than you felt you should because there wasn't enough money for food? No During the winter, do you anticipate having a problem paying your heating bill? No In the next 2 months, are you worried you might not have stable housing? No Would you like to speak with a social work wireless team member to help give you support for any of these needs? No It can be normal to feel anxious or down during a time like this. Would you like to talk to a mental health professional about how you have been feeling? No ACTION TAKEN: No action taken DISCHARGE INTRUCTIONS: Your discharge instructions / After Visit Summary (AVS) are important in guiding you through the recovery process. Do you have any questions related to your discharge instructions? No Do you have all the necessary equipment and supplies at home? Yes ACTION TAKEN: No action required WRAP AROUND SERVICES: N/A Patient educated on importance of primary care provider follow up visit as well as specialty provider follow up visits as indicated. Inform the patient that if they have any questions or concerns prior to that appointment, to call their Primary Care Provider 's office right away. Primary care provider first education provided. I would like to help you schedule a hospital follow-up virtual or telephone visit with your PCP. ACTION TAKEN: TCM Primary Care Provider Visit Scheduled: Yes - Appt date: 12/09/[address] Calhoun (PCP). Pt has an appointment w/ Ortho on 12/05/23. Your doctor would like us to remind you of the recommendations regarding the coronavirus (Covid19) outbreak: Avoid public places as much as possible. Avoid close contact (within 6 feet) with others you don't live with, especially if they are sick. Stay home if you are sick. Wash your hands regularly for at least 20 seconds with soap and water. Wear a cloth mask in public places to help reduce community spread. Do not go to your Doctor's office unless instructed to do so. For any non-emergency symptoms, call your Doctor's office to get instructions on how to manage (we might recommend a telephone or virtual visit). For emergency symptoms, proceed to Emergency Department as usual but inform them of cough and fever symptoms YOKO if present (or call on the way if possible). documented in this encounter [facility] 11-07-2023 History of Presen t illness Narrative Radiology Service Progress Note PATIENT NAME: Brent Mosqueda DATE OF SERVICE: November 07, 2023 TIME: 4:30 PM PATIENT IDENTITY VERIFICATION COMPLETED USING TWO (2) IDENTIFIERS: Name and Date of confirmed by patient verbally. FALL SCREENING: Has the patient had 2 falls in the last year or 1 fall with injury or currently using an Ambulatory Assistive Device (Walker, Cane, Wheelchair, Crutches, etc.)? No PATIENT GENDER DATA: Female. status: : No status: NO. PATIENT RELEVANT IMPLANT DATA REVIEWED: Not Applicable PATIENT PRESENTS WITH AN IMPLANTABLE OR ATTACHED NIGHT FILLER: No RADIOLOGY DEPARTMENT: General X-ray: Exam(s) Completed: Chest X-Ray PERIPHERAL IV DATA: Not applicable SIGNED BY: RT Mary(Heriberto) November 07, 2023 4:30 PM documented in this encounter [facility] 11-07-2023 History of Presen t illness Narrative Summary: PAT CC ANIRUDH Please review EKG with anesthesia if needed. Medical optimization pending EKG preliminary result reads NORMAL SINUS RHYTHM LOW VOLTAGE QRS CANNOT RULE OUT ANTERIOR INFARCT , AGE UNDETERMINED ABNORMAL ECG NO PREVIOUS ECGS AVAILABLE documented in this encounter [facility] 11-07-2023 History and physical note HISTORY AND PHYSICAL EXAMINATION SERVICE DATE: 11/07/2023 SERVICE TIME: 3:37 PM PRIMARY CARE PHYSICIAN: Portia Calhoun DO Assessment Patient has the following medical conditions which may affect carlin-operative course: Lumbar radiculopathy Surgery scheduled with Dr. Rizo on 11/20/2023 Preop examination Patient has the following medical conditions which may affect carlin-operative course addressed in assessment and plan today. Palpitations Controlled with metoprolol, instructed to take morning of surgery Stress test 01/17/2023 CONCLUSIONS: 1. SPECT Perfusion Study: Normal. 2. There is no scintigraphic evidence for inducible ischemia. 3. No evidence of scarred myocardium. 4. Left ventricle is small. The left ventricle systolic function is hyperdynamic. 5. Right ventricle is normal in size. The right ventricle systolic function is normal. 6. This is a low risk scan. Alexander Activity Status Index: METS: Participate in moderate recreational activites, such as golf, bowling, dancing, doubles tennis, or throwing a baseball or football (6.00 METs) DASI Score: 6 Patient denies any chest pain or undue shortness of breath with the above physical activity. ARISCAT Score: Age: 51-80 Preoperative SpO2: >=96% Respiratory infection in the last month: No Preoperative anemia: No Surgical incision: peripheral Duration of surgery: >3 hrs Emergency procedure: No ARISCAT Score: 26 ANESTHESIA FINDINGS: Intubation History: No history of difficult intubation. No abnormal airway history Significant Anesthesia Considerations: none Airway History: No history of difficult airway No abnormal airway history I - PHYSICAL EVALUATION AIRWAY Patient intubated: No. DENTAL Dental findings: teeth intact. Dentures, lower: partial. II - ANESTHESIA PLAN Anesthetic Plan: general Beta Alfonzo Monitoring Plan Post Procedure Analgesic Plan Prepared for Surgery: CONSULTS: The following consults have been initiated at this time: anesthesia and primary care/internal medicine. Planned Anesthetic: general The Following Tests/Procedures Have Been Initiated: Orders Placed This Encounter Confirm Blood Type Standing Status: Future Standing Expiration Date: 02/06/2024 Order Specific Question: Did Blood Bank direct you to place this order: Answer: No - Presurgical Workflow REASON FOR VISIT: Brent Mosqueda is a 73 year old female who is scheduled for Procedure(s): FUSION LUMBAR POSTERIOR LEVEL 1--L4-5 Laminectomy and Fusion (N/A) DECOMPRESSION LAMINECTOMY LUMBAR POSTERIOR LEVEL 1 (N/A) POSTERIOR NON-SEGMENTAL INSTRUMENTATION FOLLOWING LUMBAR FUSION 1 LEVEL PDFI (N/A) ALLOGRAFT FOR SPINE SURGERY MORSELIZED (N/A) AUTOGRAFT FOR SPINE SURGERY ONLY, OBTAINED FROM SAME INCISION (N/A) [employer] STEREOTACTIC COMPUTER-ASSISTED NAVIGATIONAL PROCEDURE SPINAL (N/A) at the request of Stephen Armstrong DO for routine H&P. My final recommendation will be communicated back to the requesting physician by way of shared medical record or letter. The reason for this visit is to perform a comprehensive review of the patient's past medical history, assess their current health status and obtain any additional testing required based on anesthesia guidelines. We will also identify any potential anesthesia problems or contraindications to the planned procedure. Subjective The patient has the following: ACTIVE PROBLEM LIST Chronic Left Shoulder Pain Palpitations Velázquez (Dyspnea On Exertion) Pvc (Premature Ventricular Contraction) Anxiety With Depression Fibromyalgia Elevated Liver Enzymes Chronic Joint Pain Spinal Stenosis of Lumbar Region With Neurogenic Claudication Generalized Osteoarthrosis Recurrent Falls While Walking Lumbar Radiculopathy Preop Examination COVID-19 Immunization Status Discontinued - Covid-19 Vaccine Discontinued 06/12/2023 Frequency changed to Never by Kavin Frank LPN (Patient Preference - patient states will not get) CHIEF COMPLAINT: Lumbar radiculopathy HPI: Patient is a 73 year old female here for a preoperative exam. PT complaint of low back pain for the last Year. Today pt rates pain 0/10 while sitting here but states when she gets up and moving pain is 8/10. She describes the pain as an intense ache, she also has weakness of the lower extremities and states that he right leg often gives out. Getting up and standing makes the pain worse, rest improves the pain. Pt discussed with surgeon and agrees to surgical intervention. REVIEW OF SYSTEMS: General: Negative for: unintentional weight change, malaise and fever. Neurological: Negative for: headaches, seizures and strokes. Respiratory: Negative for: asthma, COPD, tobacco use, URI < 2 weeks and obstructive sleep apnea. Cardiovascular: Negative for: arrhythmia, CAD, chest pain, CHF, DVT/PE, hyperlipidemia and hypertension. GI: Negative for: abdominal pain, GERD, nausea and vomiting. : Negative for: dysuria, hematuria and renal failure. RN LIAISON: Negative for abnormal vaginal bleeding, abnormal vaginal discharge. Endocrine: Negative for: diabetes mellitus, hyperthyroidism and hypothyroidism. Hematology: Negative for: anemia, factor V Leiden, von Willebrand disease and chronic anti-coagulation/platelet meds. Oncology: No history of CA metastasis, chemo within 30 days, or radiotherapy within 90 days. No history of oncological symptoms or problems. Psych: Positive for: anxiety and depression. Musculoskeletal: See HPI. Skin: Negative for lesions, rash and itching. 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 [place] PAST SURGICAL HISTORY Procedure Laterality Date ANKLE SURGERY HX Left x3 COLONOSCOPY SCREENING within the last 18 years per patient COLONOSCOPY SCREENING 11/12/2022 Lymphocytic colitis FOOT SURGERY HX Right 01/2023 REMOVAL GALLBLADDER FAMILY HISTORY Problem Relation Age of Onset other (multiple myeloma) Mother COPD Father No Known Problems Sister No Known Problems Brother No Known Problems Brother Colon Cancer No Family History Social History Tobacco Use Smoking status: Never Passive exposure: Never Smokeless tobacco: Never Vaping Use Vaping Use: Never used Substance Use Topics Alcohol use: Yes Comment: rare occassion Drug use: Never Prior to Admission medications as of 11/07/23 2302 Medication Sig Last Dose Taking hydrOXYzine HCl (ATARAX) 25 mg tablet Take 1 tablet by mouth three times a day as needed. Taking Yes metoprolol succinate ER (TOPROL XL) 25 mg 24 hr tablet Take 1 tablet by mouth once daily. Taking Yes ALIGN 4 mg cap TAKE ONE CAPSULE BY MOUTH ONCE DAILY` Taking Yes DULoxetine (CYMBALTA) 60 mg capsule Take 1 capsule by mouth once daily. Taking Yes pregabalin (LYRICA) 100 mg capsule Take 1 capsule by mouth three times a day. Patient taking differently: Take 100 mg by mouth two times a day. Taking Yes ascorbic acid, vitamin C, (VITAMIN C) 500 mg tablet Take 1 tablet by mouth once daily. Taking Yes vit C/E/Zn/coppr/lutein/zeaxan (PRESERVISION AREDS-2 ORAL) Take 1 tablet by mouth twice daily. Taking Yes No medication comments found. ALLERGIES No Known Allergies Objective PHYSICAL EXAM: General: alert and oriented, healthy appearance and obese. Pertinent negatives noted - not distressed. Skin: normal color, no rash or lesions. HEENT: No additional findings for patient's neck. Cardiovascular: regular rate and rhythm, normal S1 and S2, no rub, murmurs, or gallop. Respiratory: normal breath sounds, no wheezes or crackles. No chest wall deformity or tenderness. Abdomen: bowel sounds present and soft. Pertinent negatives noted - not tender. Extremities: no deformity, no edema or tenderness, no joint swelling or clubbing. Neurological: normal cognition and motor skills. Gait normal. No weakness or sensory deficit. PAIN ASSESSMENT: Pain Pain Level: 0 VITALS: BP 119/73 Pulse 66 Temp 98.8 Resp 16 Ht 5' 2 (1.58m) Wt 180 lb (81.6kg) SpO2 96% BMI 32.91 kg/(m^2). Diagnostic tests reviewed for today's visit: Lab Value Units Date High Low HB 12.9 g/dL 05/16/2023 15.5 11.5 HCT 40.0 % 05/16/2023 46.0 36.0 WBC 7.47 k/uL 05/16/2023 11.00 3.70 PLT 286 k/uL 05/16/2023 400 150 NA 140 mmol/L 05/16/2023 144 136 K 4.6 mmol/L 05/16/2023 5.1 3.7 GLUC 100 mg/dL 05/16/2023 99 74 BUN 17 mg/dL 05/16/2023 21 7 CREAT 0.80 mg/dL 05/16/2023 0.96 0.58 PTSEC No results within date range. INR No results within date range. APTT No results within date range. ALT 9 U/L 05/16/2023 38 7 AST 18 U/L 05/16/2023 35 13 TBILI 0.4 mg/dL 05/16/2023 1.3 0.2 TSH 1.810 mIU/L 05/16/2023 4.200 0.270 Lab Value Units Date High Low HCGQT No results within date range. UHCG No results within date range. HCG, BODY* No results within date range. Lab Value Units Date High Low ABORHD No results within date range. ABSCREEN No results within date range. No results found for: HBA1C No results found for this or any previous visit (from the past 8760 hour(s)). Recent Results (from the past 19305 hour(s)) ECHO Collection Time: 09/13/22 3:32 PM Impression CONCLUSIONS: - Exam indication: Palpitations - The left ventricle is normal in size. Left ventricular systolic function is normal. EF = 71 5% (2D biplane) Grade I left ventricular diastolic dysfunction. - The right ventricle is normal in size. Right ventricular systolic function is normal. - The patient has not had a prior CC echocardiographic exam for comparison. * * * Final * * * Implantable Devices: left ankle and right foot hardware Denies Blood thinners The Following Tests/Procedures Have Been Initiated: CBC, MRSA, EKG, CXR, APTT, PT, CMP, T/S ordered per surgeon in Epic ABO confirmation ordered by ANIRUDH in PST Assessment/Plan Diagnosis: Lumbar radiculopathy [M54.16] PLAN Planned Procedure: Procedure(s): FUSION LUMBAR POSTERIOR LEVEL 1--L4-5 Laminectomy and Fusion (N/A) DECOMPRESSION LAMINECTOMY LUMBAR POSTERIOR LEVEL 1 (N/A) POSTERIOR NON-SEGMENTAL INSTRUMENTATION FOLLOWING LUMBAR FUSION 1 LEVEL PDFI (N/A) ALLOGRAFT FOR SPINE SURGERY MORSELIZED (N/A) AUTOGRAFT FOR SPINE SURGERY ONLY, OBTAINED FROM SAME INCISION (N/A) [employer] STEREOTACTIC COMPUTER-ASSISTED NAVIGATIONAL PROCEDURE SPINAL (N/A) Instructions Given to Patient: Instructions located in the after visit summary. Patient given verbal and written preop instructions and voices comprehension and compliance. I spent a total of 50 minutes on the date of the service which included preparing to see the patient, [id number] patient care, completing clinical documentation, obtaining and/or reviewing separately obtained history, performing a medically appropriate examination, counseling and educating the patient/family/caregiver, ordering medications, tests, or procedures, and communicating with other HCPs (not separately reported). SIGNATURE: Flaca Tate APRN.CNP PATIENT NAME: Brent Mosqueda DATE: November 07, 2023 TIME: 9:13 AM PAGER/CONTACT #: [facility] 11-07-2023 History and physical note HISTORY AND PHYSICAL EXAMINATION SERVICE DATE: 11/07/2023 SERVICE TIME: 3:37 PM PRIMARY CARE PHYSICIAN: Portia Calhoun, Assessment Patient has the following medical conditions which may affect carlin-operative course: Lumbar radiculopathy Surgery scheduled with Dr. Rizo on 11/20/2023 Preop examination Patient has the following medical conditions which may affect carlin-operative course addressed in assessment and plan today. Palpitations Controlled with metoprolol, instructed to take morning of surgery Stress test 01/17/2023 CONCLUSIONS: 1. SPECT Perfusion Study: Normal. 2. There is no scintigraphic evidence for inducible ischemia. 3. No evidence of scarred myocardium. 4. Left ventricle is small. The left ventricle systolic function is hyperdynamic. 5. Right ventricle is normal in size. The right ventricle systolic function is normal. 6. This is a low risk scan. Alexander Activity Status Index: METS: Participate in moderate recreational activites, such as golf, bowling, dancing, doubles tennis, or throwing a baseball or football (6.00 METs) DASI Score: 6 Patient denies any chest pain or undue shortness of breath with the above physical activity. ARISCAT Score: Age: 51-80 Preoperative SpO2: >=96% Respiratory infection in the last month: No Preoperative anemia: No Surgical incision: peripheral Duration of surgery: >3 hrs Emergency procedure: No ARISCAT Score: 26 ANESTHESIA FINDINGS: Intubation History: No history of difficult intubation. No abnormal airway history Significant Anesthesia Considerations: none Airway History: No history of difficult airway No abnormal airway history I - PHYSICAL EVALUATION AIRWAY Patient intubated: No. DENTAL Dental findings: teeth intact. Dentures, lower: partial. II - ANESTHESIA PLAN Anesthetic Plan: general Beta Alfonzo Monitoring Plan Post Procedure Analgesic Plan Prepared for Surgery: CONSULTS: The following consults have been initiated at this time: anesthesia and primary care/internal medicine. Planned Anesthetic: general The Following Tests/Procedures Have Been Initiated: Orders Placed This Encounter Confirm Blood Type Standing Status: Future Standing Expiration Date: 02/06/2024 Order Specific Question: Did Blood Bank direct you to place this order: Answer: No - Presurgical Workflow REASON FOR VISIT: Brent Mosqueda is a 73 year old female who is scheduled for Procedure(s): FUSION LUMBAR POSTERIOR LEVEL 1--L4-5 Laminectomy and Fusion (N/A) DECOMPRESSION LAMINECTOMY LUMBAR POSTERIOR LEVEL 1 (N/A) POSTERIOR NON-SEGMENTAL INSTRUMENTATION FOLLOWING LUMBAR FUSION 1 LEVEL PDFI (N/A) ALLOGRAFT FOR SPINE SURGERY MORSELIZED (N/A) AUTOGRAFT FOR SPINE SURGERY ONLY, OBTAINED FROM SAME INCISION (N/A) [employer] STEREOTACTIC COMPUTER-ASSISTED NAVIGATIONAL PROCEDURE SPINAL (N/A) at the request of Stephen Armstrong PDO for routine H&P. My final recommendation will be communicated back to the requesting physician by way of shared medical record or letter. The reason for this visit is to perform a comprehensive review of the patient's past medical history, assess their current health status and obtain any additional testing required based on anesthesia guidelines. We will also identify any potential anesthesia problems or contraindications to the planned procedure. Subjective The patient has the following: ACTIVE PROBLEM LIST Chronic Left Shoulder Pain Palpitations Velázquez (Dyspnea On Exertion) Pvc (Premature Ventricular Contraction) Anxiety With Depression Fibromyalgia Elevated Liver Enzymes Chronic Joint Pain Spinal Stenosis of Lumbar Region With Neurogenic Claudication Generalized Osteoarthrosis Recurrent Falls While Walking Lumbar Radiculopathy Preop Examination COVID-19 Immunization Status Discontinued - Covid-19 Vaccine Discontinued 06/12/2023 Frequency changed to Never by Kavin Frank LPN (Patient Preference - patient states will not get) CHIEF COMPLAINT: Lumbar radiculopathy HPI: Patient is a 73 year old female here for a preoperative exam. PT complaint of low back pain for the last Year. Today pt rates pain 0/10 while sitting here but states when she gets up and moving pain is 8/10. She describes the pain as an intense ache, she also has weakness of the lower extremities and states that he right leg often gives out. Getting up and standing makes the pain worse, rest improves the pain. Pt discussed with surgeon and agrees to surgical intervention. REVIEW OF SYSTEMS: General: Negative for: unintentional weight change, malaise and fever. Neurological: Negative for: headaches, seizures and strokes. Respiratory: Negative for: asthma, COPD, tobacco use, URI < 2 weeks and obstructive sleep apnea. Cardiovascular: Negative for: arrhythmia, CAD, chest pain, CHF, DVT/PE, hyperlipidemia and hypertension. GI: Negative for: abdominal pain, GERD, nausea and vomiting. : Negative for: dysuria, hematuria and renal failure. RN LIAISON: Negative for abnormal vaginal bleeding, abnormal vaginal discharge. Endocrine: Negative for: diabetes mellitus, hyperthyroidism and hypothyroidism. Hematology: Negative for: anemia, factor V Leiden, von Willebrand disease and chronic anti-coagulation/platelet meds. Oncology: No history of CA metastasis, chemo within 30 days, or radiotherapy within 90 days. No history of oncological symptoms or problems. Psych: Positive for: anxiety and depression. Musculoskeletal: See HPI. Skin: Negative for lesions, rash and itching. 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 [place] PAST SURGICAL HISTORY Procedure Laterality Date ANKLE SURGERY HX Left x3 COLONOSCOPY SCREENING within the last 18 years per patient COLONOSCOPY SCREENING 11/12/2022 Lymphocytic colitis FOOT SURGERY HX Right 01/2023 REMOVAL GALLBLADDER FAMILY HISTORY Problem Relation Age of Onset other (multiple myeloma) Mother COPD Father No Known Problems Sister No Known Problems Brother No Known Problems Brother Colon Cancer No Family History Social History Tobacco Use Smoking status: Never Passive exposure: Never Smokeless tobacco: Never Vaping Use Vaping Use: Never used Substance Use Topics Alcohol use: Yes Comment: rare occassion Drug use: Never Prior to Admission medications as of 11/07/23 4935 Medication Sig Last Dose Taking hydrOXYzine HCl (ATARAX) 25 mg tablet Take 1 tablet by mouth three times a day as needed. Taking Yes metoprolol succinate ER (TOPROL XL) 25 mg 24 hr tablet Take 1 tablet by mouth once daily. Taking Yes ALIGN 4 mg cap TAKE ONE CAPSULE BY MOUTH ONCE DAILY` Taking Yes DULoxetine (CYMBALTA) 60 mg capsule Take 1 capsule by mouth once daily. Taking Yes pregabalin (LYRICA) 100 mg capsule Take 1 capsule by mouth three times a day. Patient taking differently: Take 100 mg by mouth two times a day. Taking Yes ascorbic acid, vitamin C, (VITAMIN C) 500 mg tablet Take 1 tablet by mouth once daily. Taking Yes vit C/E/Zn/coppr/lutein/zeaxan (PRESERVISION AREDS-2 ORAL) Take 1 tablet by mouth twice daily. Taking Yes No medication comments found. ALLERGIES No Known Allergies Objective PHYSICAL EXAM: General: alert and oriented, healthy appearance and obese. Pertinent negatives noted - not distressed. Skin: normal color, no rash or lesions. HEENT: No additional findings for patient's neck. Cardiovascular: regular rate and rhythm, normal S1 and S2, no rub, murmurs, or gallop. Respiratory: normal breath sounds, no wheezes or crackles. No chest wall deformity or tenderness. Abdomen: bowel sounds present and soft. Pertinent negatives noted - not tender. Extremities: no deformity, no edema or tenderness, no joint swelling or clubbing. Neurological: normal cognition and motor skills. Gait normal. No weakness or sensory deficit. PAIN ASSESSMENT: Pain Pain Level: 0 VITALS: BP 119/73 Pulse 66 Temp 98.8 Resp 16 Ht 5' 2 (1.58m) Wt 180 lb (81.6kg) SpO2 96% BMI 32.91 kg/(m^2). Diagnostic tests reviewed for today's visit: Lab Value Units Date High Low HB 12.9 g/dL 05/16/2023 15.5 11.5 HCT 40.0 % 05/16/2023 46.0 36.0 WBC 7.47 k/uL 05/16/2023 11.00 3.70 PLT 286 k/uL 05/16/2023 400 150 NA 140 mmol/L 05/16/2023 144 136 K 4.6 mmol/L 05/16/2023 5.1 3.7 GLUC 100 mg/dL 05/16/2023 99 74 BUN 17 mg/dL 05/16/2023 21 7 CREAT 0.80 mg/dL 05/16/2023 0.96 0.58 PTSEC No results within date range. INR No results within date range. APTT No results within date range. ALT 9 U/L 05/16/2023 38 7 AST 18 U/L 05/16/2023 35 13 TBILI 0.4 mg/dL 05/16/2023 1.3 0.2 TSH 1.810 mIU/L 05/16/2023 4.200 0.270 Lab Value Units Date High Low HCGQT No results within date range. UHCG No results within date range. HCG, BODY* No results within date range. Lab Value Units Date High Low ABORHD No results within date range. ABSCREEN No results within date range. No results found for: HBA1C No results found for this or any previous visit (from the past 8760 hour(s)). Recent Results (from the past 17982 hour(s)) ECHO Collection Time: 09/13/22 3:32 PM Impression CONCLUSIONS: - Exam indication: Palpitations - The left ventricle is normal in size. Left ventricular systolic function is normal. EF = 71 5% (2D biplane) Grade I left ventricular diastolic dysfunction. - The right ventricle is normal in size. Right ventricular systolic function is normal. - The patient has not had a prior CC echocardiographic exam for comparison. * * * Final * * * Implantable Devices: left ankle and right foot hardware Denies Blood thinners The Following Tests/Procedures Have Been Initiated: CBC, MRSA, EKG, CXR, APTT, PT, CMP, T/S ordered per surgeon in Epic ABO confirmation ordered by ANIRUDH in PST Assessment/Plan Diagnosis: Lumbar radiculopathy [M54.16] PLAN Planned Procedure: Procedure(s): FUSION LUMBAR POSTERIOR LEVEL 1--L4-5 Laminectomy and Fusion (N/A) DECOMPRESSION LAMINECTOMY LUMBAR POSTERIOR LEVEL 1 (N/A) POSTERIOR NON-SEGMENTAL INSTRUMENTATION FOLLOWING LUMBAR FUSION 1 LEVEL PDFI (N/A) ALLOGRAFT FOR SPINE SURGERY MORSELIZED (N/A) AUTOGRAFT FOR SPINE SURGERY ONLY, OBTAINED FROM SAME INCISION (N/A) [employer] STEREOTACTIC COMPUTER-ASSISTED NAVIGATIONAL PROCEDURE SPINAL (N/A) Instructions Given to Patient: Instructions located in the after visit summary. Patient given verbal and written preop instructions and voices comprehension and compliance. I spent a total of 50 minutes on the date of the service which included preparing to see the patient, [id number] patient care, completing clinical documentation, obtaining and/or reviewing separately obtained history, performing a medically appropriate examination, counseling and educating the patient/family/caregiver, ordering medications, tests, or procedures, and communicating with other HCPs (not separately reported). SIGNATURE: Flaca Tate APRN.CNP PATIENT NAME: Brent Mosqueda DATE: November 07, 2023 TIME: 9:13 AM PAGER/CONTACT #: documented in this encounter [facility] 11-07-2023 Instructions Flaca Tate APRN.CNP - 11/07/2023 9:08 AM EDT PATIENT PREOPERATIVE INSTRUCTIONS Dr. Rizo has scheduled you for your procedure at this surgery center: [facility]: [phone], [address] [id number] Please read below carefully for your personalized instructions. SURGERY DATE: 11/20/2023 Your surgeon's office will provide you with your ARRIVAL TIME for surgery. -If you have not received an arrival time by the afternoon before your surgery date, please follow up with your surgeon's office. - If you are scheduled for Friday surgery, please make sure you have your arrival time by Friday afternoon. -Please be aware that emergency situations arise, which may delay or change your surgical time. If this happens, your surgeon's office will notify you as soon as possible and regret any inconvenience. Dietary Restrictions: - Nothing to eat or drink after midnight except for a sip of water with approved medications. This is important because if you do, your surgery may have to be cancelled Blood Thinning Medications: Stop NSAIDS. -DO NOT TAKE (Ibuprofen, Advil, Aleve, Motrin, Naproxen, Celebrex, Mobic, Voltaren, Diclofenac etc.) 7 days before surgery, or as directed by your surgeon. You may take Tylenol as an alternative. IF YOU TAKE ANY OF THE FOLLOWING BLOOD THINNERS, PLEASE CONTACT YOUR SURGEON AND THE PHYSICIAN WHO PRESCRIBES IT FOR YOU IN ORDER TO GET PERIOPERATIVE INSTRUCTIONS SOON POSSIBLE. BLOOD THINNERS: Aspirin, Coumadin, Plavix, Eliquis, Pradaxa, Xarelto, Lovenox, Brilinta, Effient, Savaysa, Arixtra, etc - Stop Vitamin E, fish oil, multivitamins, Marijuana, CBD oil and other over the counter herbals and dietary supplements 7 days before surgery. -This would not apply to cancer patients who are prescribed Marinol or any other prescription form on marijuana or CBD. Medications: Hold KENTRELL inhibitors (Angiotensin-converting enzyme inhibitors) and Angiotensin II receptor blockers (ARBs) Day of surgery. Approved medications to take the morning of surgery with a sip of water: BP (except for KENTRELL inhibitors and ARBs), Heart, thyroid, psych, seizure, and pain medications excluding NSAIDS. Use inhalers as prescribed. Please bring inhalers day of surgery. Approved medications to take the morning of surgery with a sip of water: Pre-Surgery Med Instructions Medication Instructions hydrOXYzine HCl (ATARAX) 25 mg tablet Take morning of surgery with sip of water, no other fluids metoprolol succinate ER (TOPROL XL) 25 mg 24 hr tablet Take morning of surgery with sip of water, no other fluids ALIGN 4 mg cap Continue until night before surgery DULoxetine (CYMBALTA) 60 mg capsule Take morning of surgery with sip of water, no other fluids pregabalin (LYRICA) 100 mg capsule Continue until night before surgery ascorbic acid, vitamin C, (VITAMIN C) 500 mg tablet Continue until night before surgery vit C/E/Zn/coppr/lutein/zeaxan (PRESERVISION AREDS-2 ORAL) Stop 7 days before surgery If you start any new medications after today's visit, please contact the surgeon's office. Important Reminders: -You need a responsible person to stay and wait for you at the hospital or surgery center during your procedure. - -If you are undergoing an outpatient procedure you must have someone drive you home and stay with you for 24 hours. Your surgery may be cancelled if you do not have someone to drive you home or take care of you for 24 hours. -- If you have a stimulator, implant or pump that requires a remote please bring the remote with you the day of surgery. - Candy, mints, and tobacco products are NOT permitted the morning of surgery. - Hearing aids, dentures and glasses may be worn the morning of surgery. - NO jewelry, body piercings, makeup, hairpins or contacts are to be worn the day of surgery. -If you use CPAP/BIPAP, you can bring the machine with you the day of surgery. - If you are prescribed inhalers for breathing, continue using them AND bring them to the surgery center. -- Leave ALL valuables and money at home or with family members. -Oral hygiene and a shower or bath are required the evening before or the morning of surgery. - NO lotion, creams, powders or deodorants on the skin the day of surgery. -Wear loose, comfortable clothing that will accommodate bandages. -Your length of stay will be determined by your surgeon - You will need to have someone else (Family or friend) drive you home once discharged from the hospital. You are not allowed to drive yourself home after surgery. Your ride home must be at least 18 years old or older. - YOU MUST HAVE A RESPONSIBLE [employer] PIPE SUPERVISOR TO TAKE YOU HOME. A PORT PURSER, CAB OR UBER [employer] PIPE SUPERVISOR CANNOT BE MADE A RESPONSIBLE [employer] PIPE SUPERVISOR. - You cannot stay in a hotel alone after outpatient surgery. You will not be permitted to have your surgery, if you do not have someone to take care of you. -It is recommended patients have a 72-hour period between getting their vaccine and date of surgery. If you develop symptoms such as a fever, cold, or flu, or have other changes to your health within TWO DAYS of scheduled surgery or the morning of surgery, please contact the surgery center above. Visitors to any [facility] facility: An individual who is sick should not visit. Visitors to patients with COVID-19 must follow these guidelines, which include wearing a mask, eye protection, gown and gloves. [facility]- Visitations are: Visitation hours are from 7 a.m. to 9 p.m. Pre- Surgery-Patients may have up to two visitors at a time. PACU-Patients may have up to 1-2 visitors at a time. Personal Belongings: -Please have your photo ID and insurance cards. -If you do not have a copy of advance directives on file with us, please bring a copy with you on the day of surgery. If you already have an Advance Directive, please fax a copy to [phone] or email to for it to be added to your chart. If you do not have an Advance Directive, you can find the appropriate form and more information at [email or web address]. We recommend that you complete the Advance Directive form found on the website and bring it with you the day of your surgery. It can be witnessed and scanned into your chart that day. documented in this encounter [facility] 10-24-2023 History of Presen t illness Narrative Images from the original note were not included. Stephen Rizo, [facility] [place] [facility] - Orthopedic Spine Surgeon [address] [place] [id number] [address] [facility] [place] [address] Phone: [phone] ([phone] FAX: [phone] SPINE SURGERY OUTPATIENT CONSULT SERVICE DATE: 10/24/2023 LAST OFFICE VISIT: 08/01/2023 DATE OF : 1950 REFERRING PROVIDER: SELF CHIEF COMPLAINT: Bilateral leg pain HISTORY OF PRESENT ILLNESS Brent Mosqueda is a 73 year old female presenting alone. She has a past medical history of arthritis, fibromyalgia and palpitations. She was last evaluated in office on 08/01/2023 as a new patient for the evaluation of the lumbar spine. She reported horrible bilateral leg pain for the past 8 months. Pain was located in the L5 dermatome bilaterally. She stated her legs felt weak because the pain was so severe. She noted she treated her symptoms conservatively with anti-inflammatory medication. She had not attempted any physical therapy. She denied any bowel or bladder incontinence. 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 It was recommended to participate in a full course of physical therapy and follow-up once completed prompting today's visit. Today she reports that her symptoms are the same. States that she continues to have horrible bilateral leg pain. States that is getting progressively worse. Pain still is in the L5 dermatome. She has completed a full course of physical therapy with no relief. Denies any bowel or bladder incontinence. She presents for evaluation and plan of care. 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 [employer] PAST SURGICAL HISTORY Procedure Laterality Date ANKLE SURGERY HX Left x3 COLONOSCOPY SCREENING within the last 18 years per patient COLONOSCOPY SCREENING 11/12/2022 Lymphocytic colitis FOOT SURGERY HX Right 01/2023 REMOVAL GALLBLADDER FAMILY HISTORY Problem Relation Age of Onset other (multiple myeloma) Mother COPD Father No Known Problems Sister No Known Problems Brother No Known Problems Brother Colon Cancer No Family History Social History Tobacco Use Smoking status: Never Passive exposure: Never Smokeless tobacco: Never Vaping Use Vaping Use: Never used Substance Use Topics Alcohol use: No Drug use: Never ALLERGIES No Known Allergies MEDICATIONS: hydrOXYzine HCl (ATARAX) 25 mg tablet^Take 1 tablet by mouth three times a day as needed.^Disp: 30 tablet^Rfl: 2 metoprolol succinate ER (TOPROL XL) 25 mg 24 hr tablet^Take 1 tablet by mouth once daily.^Disp: 30 tablet^Rfl: 2 ALIGN 4 mg cap^TAKE ONE CAPSULE BY MOUTH ONCE DAILY`^Disp: 42 capsule^Rfl: 1 DULoxetine (CYMBALTA) 60 mg capsule^Take 1 capsule by mouth once daily.^Disp: 90 capsule^Rfl: 3 pregabalin (LYRICA) 100 mg capsule^Take 1 capsule by mouth three times a day.^Disp: 270 capsule^Rfl: 3 ascorbic acid, vitamin C, (VITAMIN C) 500 mg tablet^Take 1 tablet by mouth once daily.^Disp: 30 tablet^Rfl: 0 vit C/E/Zn/coppr/lutein/zeaxan (PRESERVISION AREDS-2 ORAL)^Take 1 tablet by mouth twice daily.^Disp: ^Rfl: REVIEW OF SYSTEMS Review of Systems OBJECTIVE: There were no vitals taken for this visit. PHYSICAL EXAM GENERAL APPEARANCE: Well nourished, well developed, and no apparent distress. NEURO PSYCH: Patient oriented to person, place, and time. Mood pleasant. Benign affect. CARDIOVASCULAR: Palpable pulses. No edema noted. No varicosities. SKIN: Head, neck, trunk, and extremities dry, intact and without lesions. LYMPHATICS: No palpable nodes in cervical or axillae areas. Groin exam deferred MUSCULOSKELETAL PALPATION: SPINOUS PROCESS: No pain. PARASPINALS: No pain. MUSCLE TONE and BULK: Symmetrical in the upper & lower extremities. MOTOR: Upper Extremity Left Right Deltoids 5/5 5/5 Biceps 5/5 5/5 Triceps 5/5 5/5 Data Visualization Developer 5/5 5/5 Interossei 5/5 5/5 Lower Extremity Hip Flexors 5/5 5/5 Quadriceps 5/5 5/5 Dorsiflexion 5/5 5/5 EHL/EDC 5/5 5/5 Plantar Flexion 5/5 5/5 SENSORY: Sensation intact to light touch C5-T1, L1-S1 GAIT: Able to perform toe and heel walk. Able to perform tandem gait. LONG TRACT SIGNS: No clonus. No Hoffmanns. REFLEXES: symmetric non-brisk PRE-OP DISCUSSION OF PLAN, INFORMED CONSENT, & CHECKLIST Reviewed With patient PRE-OP PLAN: Preoperative Diagnosis: Lumbar radiculopathy Planned procedure: L4-5 laminectomy and fusion Proposed anesthesia: General Patient Status category at the facility: inpatient Indication for surgery: failure of conservative care Estimated Surgery Time: 3 hours Implant Type: Globus Microscope: No Positioning: prone open frame olivia table with facefoam Intraoperative imaging: Navigation Neuromonitoring: Intranerve Yes Specials/Additional Equipment: Estimated Hospital Nights: 2 PCP: Portia Calhoun, DO Needs clearance letter from PCP? Yes Needs suitability letter from PCP? Yes INFORMED CONSENT Risks of surgery were discussed in detail with the patient. Risks of surgery discussed include but are not limited to, the risk of DVT, PE, and/or . Cardiovascular and pulmonary risk, as related to the patient's preoperative clearance and assessment by the perioperative team as well as anesthesia. The risk of neurological injury was discussed in great detail, including discussion of a spectrum of partial dysfunction through complete dysfunction. The risk of nerve root injury was discussed that may result in weakness, paralysis, sensory loss, and/or intractable pain and supplied nerve root that might either be transient and/or permanent in nature. The risk of compressive epidural hematoma and/or compressive epidural abscess was discussed with the patient that may or may not result in transient and/or permanent bowel and bladder dysfunction and/or transient and/or permanent lower extremity dysfunction such as weakness, paralysis, sensory loss, and/or intractable pain. The risk of durotomy, and potential complications of spinal headache, and/or persistent leakage, resulting in the need for further surgery, and/or drain placement was discussed. The risk of complications related to fusion were discussed in detail. The risk of pseudoarthrosis was discussed. The risk of hardware failure including hardware pullout, hung breakage, screw breakage was discussed. The risk of screw loosening was discussed. The risk of need for further surgery for hardware failure, pseudoarthrosis was discussed. The risk of screw misplacement resulting in radiculopathy or neurological injury was discussed. The risk of need for further surgery to alter trajectory of hardware was discussed. The risk of needing to extend the fusion cephalad and/or caudad and the reasoning behind this was discussed. Adjacent segment breakdown that may or may not be symptomatic was discussed. The risk of instability status post surgery was discussed, the risk of superficial and deep infection was discussed. No guarantees were offered nor implied regarding final outcome status post surgery or presence or absence of complication perioperatively. The risk of no improvement in symptoms despite technically adequate decompression of the compressed structures was discussed in extreme detail. The risk of need for further surgery for any reason was discussed. After a thorough discussion, the patient had many appropriate questions, all questions were answered to the patient's stated satisfaction. The patient voiced excellent understanding of both the reasoning for offering surgery, the potential complications regarding this particular surgery, and has elected to proceed. 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 -I had a long discussion today with the patient. I reviewed all of her imaging with her again. She has a significant L5 radiculopathy bilaterally. She has failed conservative treatments for this. I discussed operative and nonoperative treatment options today with the patient. She wished to proceed with operative intervention. Plan is for an L4-5 laminectomy and fusion. Consent forms were signed today. All risk and benefits were discussed at length. All questions were answered. Will schedule the patient at her convenience. The following portions of the patient's history were reviewed, confirmed, and updated as necessary: allergies, current medications, past family history, past medical history, past social history, past surgical history, problem list, HPI, and ROS obtained by others. Some elements may be copied from a previous office note and have been reviewed/updated where appropriate. All portions reflect current medical decision making from today. The clinical and radiographic findings as well as the risks, benefits and alternatives of treatment have been reviewed in detail with the patient. Advised to call the office if symptoms worsen or new symptoms develop. Patient expressed understanding and is in agreement with plan. Stephen Rizo DO This note was partially generated using [employer] voice recognition system, and there may be some incorrect words, spellings, and punctuation that were not noted in checking the note before saving. documented in this encounter [facility] 10-13-2023 Telephone encounter Note Pt requesting a refill of Hydroxyzine 25mg and Metoprolol 25mg Send to [facility] Jacquelyn Brock Sriram [facility] 10-13-2023 Miscellaneous Notes Pt requesting a refill of Hydroxyzine 25mg and Metoprolol 25mg Send to [facility] Jacquelyn Brock Sriram ----- Message from Aline Hartman sent at 10/13/2023 2:34 PM EDT ----- [facility]Portia Calhoun DO\ Med refill and call back Subject Line Format: [Specialty] / [Provider Name] / Medication Question Select Primary Care Department For Pool Routing Assistance: [facility] [place] => [facility] [place] [facility] [[id number]] === Patient: Brent Mosqueda Date of : 1950 Primary Care Provider: Portia Calhoun DO Patient called to request a refill for his/her medication(s). Patient was advised that the refill should be called into the pharmacy. Patient advised they had already done so and over 24 hours has passed since doing so and they are following up: Y/N? YES. Please contact the patient for additional information at [phone] (home) [phone] (cell). Hydroxyzine and metaprolol Patient requesting call back from Dr thorpe Thank you, Aline Hartman October 13, 2023 2:35 PM documented in this encounter [facility] 10-13-2023 Telephone encounter Note ----- Message from Aline Hartman sent at 10/13/2023 2:34 PM EDT ----- [facility]Portia Calhoun DO\ Med refill and call back Subject Line Format: [Specialty] / [Provider Name] / Medication Question Select Primary Care Department For Pool Routing Assistance: [facility] [place] => [facility] [place] [facility] [[id number]] === Patient: Brent Mosqueda Date of : 1950 Primary Care Provider: Portia Calhoun DO Patient called to request a refill for his/her medication(s). Patient was advised that the refill should be called into the pharmacy. Patient advised they had already done so and over 24 hours has passed since doing so and they are following up: Y/N? YES. Please contact the patient for additional information at [phone] (home) [phone] (cell). Hydroxyzine and metaprolol Patient requesting call back from Dr office Thank you, Aline Hartman October 13, 2023 2:35 PM [facility] 10-13-2023 Telephone encounter Note Patient called in and left a voicemail saying she called in middle of last week for refills. Says she used to see Dr. Estefany Michael and now seeing Dr. Calhoun. Needing refills. [facility] 10-13-2023 Miscellaneous Notes Patient called in and left a voicemail saying she called in middle of last week for refills. Says she used to see Dr. Estefany Michael and now seeing Dr. Calhoun. Needing refills. documented in this encounter [facility] 10-06-2023 Telephone encounter Note Patient phones requesting refills as follows: Requested Prescriptions Pending Prescriptions Disp Refills ALIGN 4 mg cap [Pharmacy Med Name: ALIGN 4MG CAPS] 42 capsule 1 Sig: TAKE ONE CAPSULE BY MOUTH ONCE DAILY` Please review and advise. Leann Ling MA [facility] 10-06-2023 Miscellaneous Notes Patient phones requesting refills as follows: Requested Prescriptions Pending Prescriptions Disp Refills ALIGN 4 mg cap [Pharmacy Med Name: ALIGN 4MG CAPS] 42 capsule 1 Sig: TAKE ONE CAPSULE BY MOUTH ONCE DAILY` Please review and advise. Leann Ling MA documented in this encounter [facility] 09-30-2023 Telephone encounter Note Patient no-showed appointment with Dr. Rizo. Called and left a voicemail asking for a return phone call if she would like to reschedule. [facility] 09-30-2023 Miscellaneous Notes Patient no-showed appointment with Dr. Rizo. Called and left a voicemail asking for a return phone call if she would like to reschedule. documented in this encounter [facility] 09-18-2023 History of Presen t illness Narrative Images from the original note were not included. Episode Visit Count: 5 Therapist That Will Accept/Oversee The Plan Of Care: Sagar Calero Start of Care Date: 08/04/23 Onset Date: 08/03/22 Plan of Care Certification Date: 08/04/23 Next Certification Due Date: 10/04/23 REHABILITATION AND SPORTS THERAPY PHYSICAL THERAPY DISCONTINUANCE OF CARE PLAN OF CARE UPDATE: Assessment: Brent Mosqueda is discontinued from Physical Therapy services due to maximal benefit.. Patient was seen for 5 visits from Start of Care Date: 08/04/23 to 09/18/2023 and treatment included: Therapeutic exercise, Manual therapy, and Self-usp management. Goals updated on 09/18/2023. Goals for Episode of Care: created on 08/04/23 through 10/04/23 Independent in home exercises. -not met Patient will decrease pain rating by 2 points to meet minimal clinical important difference for numeric pain rating scale. -not met Restore pain-free lumbar ROM to minimal limitations to allow for improved functional mobility -not met, regressing Stand / Walk as needed for ADLs without pain/symptoms. -not met, regressing Patient will increase strength of trunk/core to 4/5 to allow for improve ability to complete ADLs. -not met SUBJECTIVE: Pt comes into clinic today w/ reports of increased pain and no frequency changes in symptoms. Pt reports no benefit in symptoms from skilled PT. Pain: Pain Pain Level: 8 Pain Location: Leg - Left, Leg - Right, Low Back/Lumbar Spine - Right, Low Back/Lumbar Spine- Midline, Low Back/Lumbar Spine - Left Description: Sharp, Burning Frequency: Continuous PROMIS Scales 09/18/2023 08/04/2023 Higher is Better Phys Func - Score 37 (moderate dysfunction) 32 (moderate dysfunction) Phys Func - Percentile 10 4 Self-Eff Symptom - Score 43 (Average) 35 (Low) Self-Eff Symptom - Percentile 24 7 T-scores: mean of general population = 50. 5 points is clinically meaningfully difference Percentiles provide an indication of how the patient's score ranks in relation to the general population. Higher percentile rankings indicate better function/quality of life. 50th percentile is the average of the general population and indicates half of respondents had a worse score. OBJECTIVE MEASURES WITH LEVEL OF FUNCTION: Special Tests - Hip and Spine SLR Test: Left Positive, Right Positive Functional Performance Test Results 30 Second Chair Stand Test: 14 reps Timed Up and Go (sec): 9.22 sec 4 Stage Balance Test Narrow base of support (sec): 10 sec Semi-tandem base of support (sec): 5 sec Tandem base of support (sec): 0 sec Single leg stance - right (sec): 0 sec Single leg stance - left (sec): 0 sec TREATMENT: Self-Fpc Management: 1: Pt was edu in HEP exercises to continue at home if they choose, to only do flexion based exercises since neutral spine TA bracing aggravates pain. They were edu to follow up with PCP and the refferring provider to explore different options since skilled PT did not work for them, for this episode. Skilled Intervention: Skilled judgment in the selection of proper modification for activity of daily living/home management based on clinical presentation, deficits, and needs. Educated the patient regarding recommendations and provided written instruction to facilitate compliance. Reviewed patient specific diagnosis in relation to activities of daily living/home management. Reviewed and educated patient on additions/changes for home program as noted above with an (*). Billing Self-Care/Home Management Treatment Minutes: 15 Skilled Treatment Time Minutes (timed and untimed codes): 15 Total Session Time (minutes): 25 Session Start Time : 1310 Session Stop Time : 1335 LANRE Morse Supervising therapist was present and guided the care of the patient for the entire session on this date. All documentation was reviewed and agreed upon. Sagar Calero PT documented in this encounter [facility] 09-12-2023 History of Presen t illness Narrative Episode Visit Count: 4 Therapist That Will Accept/Oversee The Plan Of Care: Sagar Calero Start of Care Date: 08/04/23 Onset Date: 08/03/22 Plan of Care Certification Date: 08/04/23 Next Certification Due Date: 10/04/23 REHABILITATION AND SPORTS THERAPY PHYSICAL THERAPY TREATMENT NOTE ASSESSMENT: Brent Mosqueda tolerated the session with decreased symptoms. She demonstrated difficulty with abdominal control w/o low back pain initially and improvements in abdominal control w/o low back pain after verbal and tactile cueing from skilled PT. The patient will continue to benefit from ongoing skilled physical therapy to progress toward set goals. PLAN FOR NEXT VISIT: Assess symptom severity. If same then remove mobility exercise for spine and implement standing abdominal exercises. If improved, then keep mobility exercise and implement standing abdominal exercise. SUBJECTIVE: Pt comes into clinic today w/ increased pain from last visit. Is frustrated and has questions regarding HEP. Reports no change in symptoms. Pain: Pain Pain Level: 7 Pain Location: Leg - Left, Leg - Right, Low Back/Lumbar Spine - Right, Low Back/Lumbar Spine- Midline, Low Back/Lumbar Spine - Left Description: Sharp, Burning Frequency: Continuous OBJECTIVE MEASURES WITH LEVEL OF FUNCTION: Reflexes - Lower Extremity R Babinski: Negative L Babinski: Negative TREATMENT: Therapeutic Exercise: 1: *TA set w/ arms pressed down into table 5x20 2: *cat cow x15 3: *DC all other exericses for now Skilled Intervention: Patient was educated in proper exercise technique and purpose for exercises. Reviewed and educated patient on additions/changes for home exercise program. Skilled judgment was used in selection of appropriate interventions. Provided written instruction for home exercise program to facilitate proper performance and compliance. Correct performance of therapeutic exercises was facilitated with verbal and tactile cuing. Educated patient on rationale for performing exercises in regards to increase ease of ADL and ROM and function . Manual Therapy: 1: Manual lumbar traction x18 min Skilled Intervention: Manual skills to improve joint mobility, ROM, and decrease pain. Utilized anatomy knowledge of the therapist, and assessment of patient's response to intervention. Self-Fpc Management: 1: Pt edu in what symptoms to be on look out for when doing exercise. Pt was also edu in what symptoms are warranted versus not. Pt was also edu in mechanics of chief complaint via usage of spine model w/ verbal explanation of why PT is choosing specific treatments. Skilled Intervention: Skilled judgment in the selection of proper modification for activity of daily living/home management based on clinical presentation, deficits, and needs. Educated the patient regarding recommendations and provided written instruction to facilitate compliance. Provided written instruction for activities of daily living techniques to facilitate proper performance and compliance. Activity progression based on professional judgement. Reviewed and educated patient on additions/changes for home program. Provided written instruction for home program to facilitate proper performance and compliance. Correct performance of home program was facilitated with verbal and tactile cueing. Billing Therapeutic Exercise Treatment Minutes: 22 Manual TherapyTreatment Minutes: 18 Self-Care/Home Management Treatment Minutes: 8 Skilled Treatment Time Minutes (timed and untimed codes): 48 Total Session Time (minutes): 48 Session Start Time : 1723 Session Stop Time : 1811 LANRE Morse Supervising therapist was present and guided the care of the patient for the entire session on this date. All documentation was reviewed and agreed upon. Sagar Calero PT Program_ID:[id number] Access Code: [email or web address] URL: [email or web address] Date: 09-11-2023 Prepared By: Sagar Calero Program Notes Exercises - Supine Double Knee to Chest - 1 x daily - 7 x weekly - 3 sets - 3 reps - Hooklying Single Knee to Chest - 1 x daily - 7 x weekly - 3 sets - 3 reps - Sidelying Hip Abduction - 1 x daily - 7 x weekly - 3 sets - 10 reps - Supine 90/90 Alternating Toe Touch - 1 x daily - 7 x weekly - 3 sets - 10 reps - Bent Knee Fallouts - 1 x daily - 7 x weekly - 3 sets - 10 reps - Supine Transversus Abdominis Bracing - Hands on Ground - 1 x daily - 7 x weekly - 3 sets - 10 reps - Quadruped Cat Cow - 1 x daily - 7 x weekly - 3 sets - 10 reps documented in this encounter [facility] 08-28-2023 History of Presen t illness Narrative Episode Visit Count: 3 Therapist That Will Accept/Oversee The Plan Of Care: Sagar Calero Start of Care Date: 08/04/23 Onset Date: 08/03/22 Plan of Care Certification Date: 08/04/23 Next Certification Due Date: 10/04/23 REHABILITATION AND SPORTS THERAPY PHYSICAL THERAPY TREATMENT NOTE ASSESSMENT: Bernt Mosqueda tolerated the session with decreased symptoms. She demonstrated difficulty with symptom modulation at home and improvements in understanding of complaints and HEP. The patient will continue to benefit from ongoing skilled physical therapy to progress toward set goals. PLAN FOR NEXT VISIT: Assess understanding of complaint for educational purposes, assess tolerance to HEP and begin WB stabilization exercise if applicable. SUBJECTIVE: Pt comes into clinic toda with pain radiating into B/L calves. Pt notes that relief from last visit was short and lasted until drive home. Pain: Pain Pain Level: 7 Pain Location: Leg - Left, Leg - Right (L is worse than R) Description: Sharp, Burning, Aching Frequency: Continuous OBJECTIVE MEASURES WITH LEVEL OF FUNCTION: Pt reported that pain was in low back only after traction. TREATMENT: Therapeutic Exercise: 1: *Seated forward flexion holds 3x30 seconds 2: *TA bracing w/ BKFO GTB 3x10 ea leg 3: *TA bracing w/ march and slow eccentric double leg 3x10, 5 second count eccentric. Skilled Intervention: Patient was educated in proper exercise technique and purpose for exercises. Skilled judgment was used in selection of appropriate interventions. Educated patient on rationale for performing exercises in regards to increase ease of ADL and ROM and function . Patient education as noted. Manual Therapy: 1: Manual lumbar traction x10 min with pull to tolerance 2: STM to QL and lumbar spine paraspinals. Skilled Intervention: Manual skills to improve joint mobility, ROM, and decrease pain. Utilized anatomy knowledge of the therapist, and assessment of patient's response to intervention. Self-Fpc Management: 1: Pt was educated w/ spine model in how an irritated nerve can cause symptoms to radiate down leg. Pt was also further educated in periperialization and centralization as well with use of model. Skilled Intervention: Skilled judgment in the selection of proper modification for activity of daily living/home management based on clinical presentation, deficits, and needs. Educated the patient regarding recommendations and provided written instruction to facilitate compliance. Reviewed patient specific diagnosis in relation to activities of daily living/home management. Reviewed and educated patient on additions/changes for home program Billing Therapeutic Exercise Treatment Minutes: 13 Manual TherapyTreatment Minutes: 15 Self-Care/Home Management Treatment Minutes: 12 Skilled Treatment Time Minutes (timed and untimed codes): 40 Total Session Time (minutes): 40 Session Start Time : 1317 Session Stop Time : 1357 LANRE Morse Supervising therapist was present and guided the care of the patient for the entire session on this date. All documentation was reviewed and agreed upon. Sagar Calero PT documented in this encounter [facility] 08-25-2023 History of Presen t illness Narrative Episode Visit Count: 2 Therapist That Will Accept/Oversee The Plan Of Care: Sagar Calero Start of Care Date: 08/04/23 Onset Date: 08/03/22 Plan of Care Certification Date: 08/04/23 Next Certification Due Date: 10/04/23 REHABILITATION AND SPORTS THERAPY PHYSICAL THERAPY TREATMENT NOTE ASSESSMENT: Brent Mosqueda tolerated the session with decreased symptoms and no issues. She demonstrated improvements in back pain and tolerance for neutral spine core strengthening. The patient will continue to benefit from ongoing skilled physical therapy to progress toward set goals. PLAN FOR NEXT VISIT: SUBJECTIVE: Patient doing slightly better, but still difficulty standing and walking Pain: Pain Pain Level: 5 Pain Location: Hip - Left, Hip - Right Description: Sore, Aching Frequency: Intermittent OBJECTIVE MEASURES WITH LEVEL OF FUNCTION: Poor core control with added exercises today TREATMENT: Therapeutic Exercise: 1: SKC 3x30 sec/side 2: DKC 3x30 sec 3: TA bracing in supine 3x10, 3-5 sec holds 4: *TA bracing plus alt marches 3x10/side 5: *TA bracing plus BKFO 3x10/side Skilled Intervention: Patient was educated in proper exercise technique and purpose for exercises. Skilled judgment was used in selection of appropriate interventions. Provided written instruction for home exercise program to facilitate proper performance and compliance. Correct performance of therapeutic exercises was facilitated with verbal, visual, and tactile cuing. Manual Therapy: 1: Manual lumbar traction x10 min with pull to tolerance Skilled Intervention: Manual skills to improve joint mobility, ROM, and decrease pain. Utilized anatomy knowledge of the therapist, and assessment of patient's response to intervention. Billing Therapeutic Exercise Treatment Minutes: 28 Manual TherapyTreatment Minutes: 10 Skilled Treatment Time Minutes (timed and untimed codes): 38 Total Session Time (minutes): 38 Session Start Time : 1320 Session Stop Time : 1358 Sagar Calero PT Program_ID:[id number] Access Code: [email or web address] URL: [email or web address] Date: 08-21-2023 Prepared By: Sagar Calero Program Notes Exercises - Supine Double Knee to Chest - 1 x daily - 7 x weekly - 3 sets - 3 reps - Hooklying Single Knee to Chest - 1 x daily - 7 x weekly - 3 sets - 3 reps - Supine Transversus Abdominis Bracing - Hands on Stomach - 1 x daily - 7 x weekly - 3 sets - 10 reps - Sidelying Hip Abduction - 1 x daily - 7 x weekly - 3 sets - 10 reps - Supine 90/90 Alternating Toe Touch - 1 x daily - 7 x weekly - 3 sets - 10 reps - Bent Knee Fallouts - 1 x daily - 7 x weekly - 3 sets - 10 reps documented in this encounter [facility] 08-25-2023 Miscellaneous Notes pended Pt requesting [facility] of [facility] [place] documented in this encounter [facility] 08-04-2023 History of Presen t illness Narrative Episode Visit Count: 1 Therapist That Will Accept/Oversee The Plan Of Care: Sagar Calero Start of Care Date: 08/04/23 Onset Date: 08/03/22 Plan of Care Certification Date: 08/04/23 Next Certification Due Date: 10/04/23 Patient Identified by Name and Date of : Yes REHABILITATION AND SPORTS THERAPY PHYSICAL THERAPY EVALUATION PLAN OF CARE: Assessment: Brent Mosqueda presents with chief complaint of LBP with B radicular symptoms that interferes with rising from a chair, standing, walking, stair negotiation, heavy exertion, lifting, physical activities, cleaning, cooking . She presents with impairments in ADL's, overall function, range of motion, strength, and symptom management. PROMIS (Patient-Reported Outcomes Measurement Information System) scores were reviewed and identified as a rehabilitation concern. Prognosis for therapy is Fair due to: clinical presentation, chronic nature of impairments, limited tolerance to activity . She will benefit from skilled therapy services to meet the goals established for this plan of care as noted below. Assessment Fall Risk : Complex at risk Classification Low Back Pain Classification: Symptom Modulation Goals for Episode of Care: created on 08/04/23 through 10/04/23 Independent in home exercises. Patient will decrease pain rating by 2 points to meet minimal clinical important difference for numeric pain rating scale. Restore pain-free lumbar ROM to minimal limitations to allow for improved functional mobility Stand / Walk as needed for ADLs without pain/symptoms. Patient will increase strength of trunk/core to 4/5 to allow for improve ability to complete ADLs. Planned Interventions, Frequency, and Duration: Current Frequency: 1x/week Duration: 8 weeks Total Number of Visits Planned: 8 Planned Treatment Interventions: Therapeutic exercise (12357), Neuromuscular re-education (97312), Manual therapy (79620), Therapeutic activities (82750), Self-usp management (25262), Patient/Family/Caregiver Education, Body Mechanics Training, Gait Training (69323) PLAN FOR NEXT VISIT: Continue neutral spine strengthening, flexion bias due to spondylolisthesis Patient demonstrates good understanding of plan of care and treatment. The above goals and plan of care were discussed and agreed upon by patient/family. SUBJECTIVE: LE pain and weakness. Pain runs across B lumbar spine, with radicular symptoms down both legs post/lat. Does get tingling in feet but has had multiple foot surgeries. Pain is good while sitting, but standing and walking is where it hurts the worst. Functional Limitations: rising from a chair, standing, walking, stair negotiation, heavy exertion, lifting, physical activities, cleaning, cooking Prior Level of Function: Independent without limitations Intake Information: Prescription present Falls History # of falls in past year: 4 # of falls resulting in an injury in past year: 0 Red Flags Vertebral Fracture Red Flags: Female, Age >70 Vertebral Fracture Clinical Reasoning: No identified risk factors Abdominal Aortic Aneurysm Clinical Reasoning: No identified risk factors. Cancer Clinical Reasoning: No identified risk factors. Infection Clinical Reasoning: No identified risk factors. Cauda Equina Syndrome Clinical Reasoning: No identified risk factors. Red Flags - Cervical Cancer Clinical Reasoning: No identified risk factors. Infection Clinical Reasoning: No identified risk factors. Pain: Pain Pain Level: 9 Pain Location: Leg - Left, Leg - Right Description: Sore, Shooting (Weak) Frequency: Intermittent, Standing, Walking Post Treatment Pain Post Treatment Pain Level: No Change Pain Mechanism Classification: Neuropathic PROMIS Scales Higher is Better 08/04/2023 Phys Func - Score 32 (moderate dysfunction) Phys Func - Percentile 4% Self-Eff Symptom - Score 35 (Low) Self-Eff Symptom - Percentile 7% T-scores: mean of general population = 50. 5 points is clinically meaningfully difference Percentiles provide an indication of how the patient's score ranks in relation to the general population. Higher percentile rankings indicate better function/quality of life. 50th percentile is the average of the general population and indicates half of respondents had a worse score. OBJECTIVE MEASURES WITH LEVEL OF FUNCTION: Lumbar Spine AROM Lumbar Flexion: Normal (Pain reversing curvature) Lumbar Extension: Increased pain, Peripheralizing Repeated Test Movements - Lumbar RFIL - Symptoms During: decreases RFIL - Symptoms After: better LE Strength Trunk Strength: 3/5 R Hip Flexion (L2): 4/5 R Knee Extension (L3): 4-/5 R Ankle Dorsiflexion (L4): 4+/5 R Ankle Plantarflexion Functional Strength (S1): 5 R Great Toes Extension (L5, S1): 4+/5 L Hip Flexion (L2): 4/5 L Hip ABduction: 4/5 L Knee Extension (L3): 4-/5 L Ankle Dorsiflexion (L4): 4+/5 L Ankle Plantarflexion Functional Strength (S1): 4+ L Great Toes Extension (L5, S1): 4+/5 Special Tests - Hip and Spine Hip and Spine Special Tests: SLR Test SLR Test: Right Positive, Left Positive Functional Performance Test Results 30 Second Chair Stand Test: 12 reps Timed Up and Go (sec): 7.99 sec 4 Stage Balance Test Narrow base of support (sec): 10 sec Semi-tandem base of support (sec): 10 sec Tandem base of support (sec): 3 sec Single leg stance - right (sec): 2 sec Single leg stance - left (sec): 2 sec Education: Education Learning/educational needs: Home exercise program, Plan of Care, Changes in Plan of Care, Safety TREATMENT: PT Treatment Interventions: Therapeutic Exercise Evaluation Therapeutic Exercise: 1: *SKC 3x30 sec/side (Patient educated on centralization vs peripheralization) 2: *DKC 3x30 sec 3: *TA bracing in supine 3x10, 3-5 sec holds 4: *SL hip abduction 3x10/side Skilled Intervention: Patient was educated in proper exercise technique and purpose for exercises. Skilled judgment was used in selection of appropriate interventions. Provided written instruction for home exercise program to facilitate proper performance and compliance. Correct performance of therapeutic exercises was facilitated with verbal, visual, and tactile cuing. Billing * Evaluation Low Complexity: 1 Unit Therapeutic Exercise Treatment Minutes: 10 Skilled Treatment Time Minutes (timed and untimed codes): 44 Total Session Time (minutes): 44 Session Start Time : 1402 Session Stop Time : 1446 Sagar Calero PT Program_ID:[id number] Access Code: [email or web address] URL: [email or web address] Date: 08-04-2023 Prepared By: Sagar Calero Program Notes Exercises - Supine Double Knee to Chest - 1 x daily - 7 x weekly - 3 sets - 3 reps - Hooklying Single Knee to Chest - 1 x daily - 7 x weekly - 3 sets - 3 reps - Supine Transversus Abdominis Bracing - Hands on Stomach - 1 x daily - 7 x weekly - 3 sets - 10 reps - Sidelying Hip Abduction - 1 x daily - 7 x weekly - 3 sets - 10 reps documented in this encounter [facility] 08-01-2023 History of Presen t illness Narrative Images from the original note were not included. Stephen Rizo, [facility] [place] [facility] - Orthopedic Spine Surgeon [address], [place] [address] [facility] [place] [address] Phone: [phone] ([phone] FAX: [phone] SPINE SURGERY OUTPATIENT CONSULT SERVICE DATE: 08/01/2023 LAST OFFICE VISIT: Visit date not found DATE OF : 1950 REFERRING PROVIDER: Portia Calhoun [address] [id number] CHIEF COMPLAINT: Bilateral leg pain HISTORY OF PRESENT ILLNESS Brent Mosqueda is a 73 year old female presenting alone. She has a past medical history of arthritis, fibromyalgia and palpitations. She presents as a new patient for the evaluation of the lumbar spine referred by Dr. Calhoun with Family Medicine. Today she reports that for the past 8 months she has had horrible bilateral leg pain. Pain is located in the L5 dermatome bilaterally. States that her legs feel weak because the pain is so bad. She has taken anti-inflammatory medication for this so far. She has not attempted any physical therapy. She denies any bowel or bladder incontinence. She presents for evaluation, image review and plan of care. 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 [employer] PAST SURGICAL HISTORY Procedure Laterality Date ANKLE SURGERY HX Left x3 COLONOSCOPY SCREENING within the last 18 years per patient COLONOSCOPY SCREENING 11/12/2022 Lymphocytic colitis FOOT SURGERY HX Right 01/2023 REMOVAL GALLBLADDER FAMILY HISTORY Problem Relation Age of Onset other (multiple myeloma) Mother COPD Father No Known Problems Sister No Known Problems Brother No Known Problems Brother Colon Cancer No Family History Social History Tobacco Use Smoking status: Never Passive exposure: Never Smokeless tobacco: Never Vaping Use Vaping Use: Never used Substance Use Topics Alcohol use: No Drug use: Never ALLERGIES No Known Allergies MEDICATIONS: pregabalin (LYRICA) 100 mg capsule^Take 1 capsule by mouth three times a day.^Disp: 270 capsule^Rfl: 3 ALIGN 4 mg cap^take one capsule by mouth once daily^Disp: 42 capsule^Rfl: 1 metoprolol succinate ER (TOPROL XL) 25 mg 24 hr tablet^Take 1 tablet by mouth once daily.^Disp: 30 tablet^Rfl: 2 hydrOXYzine HCl (ATARAX) 25 mg tablet^prn^Disp: ^Rfl: pregabalin (LYRICA) 50 mg capsule^Take 1 capsule by mouth three times a day.^Disp: 270 capsule^Rfl: 3 oxyCODONE-acetaminophen (PERCOCET) 5-325 mg tablet^Take 1 tablet by mouth every 6 hours as needed for pain.^Disp: 18 tablet^Rfl: 0 (Patient not taking: Reported on 07/15/2023) ascorbic acid, vitamin C, (VITAMIN C) 500 mg tablet^Take 1 tablet by mouth once daily.^Disp: 30 tablet^Rfl: 0 vit C/E/Zn/coppr/lutein/zeaxan (PRESERVISION AREDS-2 ORAL)^Take 1 tablet by mouth twice daily.^Disp: ^Rfl: DULoxetine (CYMBALTA) 60 mg capsule^Take 1 capsule by mouth once daily.^Disp: 90 capsule^Rfl: 3 (Patient taking differently: Take 60 mg by mouth every morning.) REVIEW OF SYSTEMS Review of Systems OBJECTIVE: There were no vitals taken for this visit. PHYSICAL EXAM GENERAL APPEARANCE: Well nourished, well developed, and no apparent distress. NEURO PSYCH: Patient oriented to person, place, and time. Mood pleasant. Benign affect. CARDIOVASCULAR: Palpable pulses. No edema noted. No varicosities. SKIN: Head, neck, trunk, and extremities dry, intact and without lesions. LYMPHATICS: No palpable nodes in cervical or axillae areas. Groin exam deferred MUSCULOSKELETAL PALPATION: SPINOUS PROCESS: No pain. PARASPINALS: No pain. MUSCLE TONE and BULK: Symmetrical in the upper & lower extremities. MOTOR: Upper Extremity Left Right Deltoids 5/5 5/5 Biceps 5/5 5/5 Triceps 5/5 5/5 Data Visualization Developer 5/5 5/5 Interossei 5/5 5/5 Lower Extremity Hip Flexors 5/5 5/5 Quadriceps 5/5 5/5 Dorsiflexion 5/5 5/5 EHL/EDC 5/5 5/5 Plantar Flexion 5/5 5/5 SENSORY: Sensation intact to light touch C5-T1, L1-S1 GAIT: Able to perform toe and heel walk. Able to perform tandem gait. LONG TRACT SIGNS: No clonus. No Hoffmanns. REFLEXES: symmetric non-brisk DATA REVIEW DXA-AXIAL SKELETON 06/16/2023 IMPRESSION: THE LOWEST T-SCORE IS -1.4 IN THE SPINE 1) DIAGNOSIS (based on BMD alone): OSTEOPENIA MRI LUMBAR SPINE WO IVCON 07/24/2023 IMPRESSION: 1. Moderate central spinal canal stenosis at L4-5 secondary to degenerative spondylolisthesis, ligamentum flavum hypertrophy and facet hypertrophy. 2. Right foraminal stenosis at L5-S1 3. Broad central disc protrusion at L5-S1 4. Lesser degrees of degenerative changes at other levels as detailed above. Anatomic Lumbar Variant: None. L4-5 is considered the level of the iliac crest and assume there are 5 lumbar-type vertebrae. For this patient, the iliac crests are at the mid L5 level. My interpretation: Moderate to severe central stenosis L4-5. XR LUMBAR MOTION 4V AP/LAT/FLEX/EXT 08/01/2023 AP lateral flexion-extension view lumbar spine displays a grade 1 spinal listhesis that is mobile at L4-5. ASSESSMENT/PLAN Brent Mosqueda is a 73-year-old female with lumbar radiculopathy. -I had a long discussion today with the patient. I believe all of her leg pain is coming from her lumbar spine. She has a mobile spondylolisthesis at L4-5 with moderate to severe central stenosis and lateral recess stenosis. She is currently neurologically intact. I recommend conservative treatments at this time. She is scheduled to undergo physical therapy on Friday of next week. Recommend a full course of physical therapy. She will follow-up me once is completed. The following portions of the patient's history were reviewed, confirmed, and updated as necessary: allergies, current medications, past family history, past medical history, past social history, past surgical history, problem list, HPI, and ROS obtained by others. Some elements may be copied from a previous office note and have been reviewed/updated where appropriate. All portions reflect current medical decision making from today. The clinical and radiographic findings as well as the risks, benefits and alternatives of treatment have been reviewed in detail with the patient. Advised to call the office if symptoms worsen or new symptoms develop. Patient expressed understanding and is in agreement with plan. Stephen Rizo DO This note was partially generated using [employer] voice recognition system, and there may be some incorrect words, spellings, and punctuation that were not noted in checking the note before saving. documented in this encounter [facility] 08-01-2023 Miscellaneous Notes Consult to [facility] center Spinal stenosis of lumbar region Confirm [id number] Katie Davalos documented in this encounter [facility] 08-01-2023 Miscellaneous Notes Consult to [facility] medical center Spondylosis and allied disorders Confirm [id number] Katie Davalos documented in this encounter [facility] 07-31-2023 Miscellaneous Notes Duplicate message. See 07/29/23 encounter. Patient was advised of MRI in that encounter. Referral line phone number was given Abnormal mri lumbar needs spine center written documented in this encounter [facility] 07-24-2023 Note HNO ID: [id number] Author: FELICITY MOREIRA RT(R) Service: Radiology Author Type: Technologist Type: Progress Notes Filed: 07/24/2023 19:28 Note Text: Radiology Service Progress Note PATIENT NAME: Brent Mosqueda DATE OF SERVICE: July 24, 2023 TIME: 7:28 PM PATIENT IDENTITY VERIFICATION COMPLETED USING TWO (2) IDENTIFIERS: Name and Date of confirmed by patient verbally and Name and Date of confirmed by identification band. FALL SCREENING: Has the patient had 2 falls in the last year or 1 fall with injury or currently using an Ambulatory Assistive Device (Walker, Cane, Wheelchair, Crutches, etc.)? No PATIENT GENDER DATA: Female. status: : No status: NO. PATIENT RELEVANT IMPLANT DATA REVIEWED: Yes PATIENT PRESENTS WITH AN IMPLANTABLE OR ATTACHED NIGHT FILLER: No RADIOLOGY DEPARTMENT: MR; Exam(s) Completed: Spine: Lumbar spine PERIPHERAL IV DATA: Not applicable SIGNED BY: RT Yunier(R) July 24, 2023 7:28 PM [facility] 07-24-2023 History of Presen t illness Narrative Radiology Service Progress Note PATIENT NAME: Brent Mosqueda DATE OF SERVICE: July 24, 2023 TIME: 7:28 PM PATIENT IDENTITY VERIFICATION COMPLETED USING TWO (2) IDENTIFIERS: Name and Date of confirmed by patient verbally and Name and Date of confirmed by identification band. FALL SCREENING: Has the patient had 2 falls in the last year or 1 fall with injury or currently using an Ambulatory Assistive Device (Walker, Cane, Wheelchair, Crutches, etc.)? No PATIENT GENDER DATA: Female. status: : No status: NO. PATIENT RELEVANT IMPLANT DATA REVIEWED: Yes PATIENT PRESENTS WITH AN IMPLANTABLE OR ATTACHED NIGHT FILLER: No RADIOLOGY DEPARTMENT: MR; Exam(s) Completed: Spine: Lumbar spine PERIPHERAL IV DATA: Not applicable SIGNED BY: RT Yunier(R) July 24, 2023 7:28 PM documented in this encounter [facility] 07-21-2023 History of Presen t illness Narrative Images from the original note were not included. [facility] [address] [place] [address] Date of Evaluation: 07/21/2023 Patient Name: Brent Mosqueda : 1950 Chief Complaint: Patient presents with: Follow Up: Pain all over Lab & Test Results General Weakness Dizziness Nursing Intake: There are no exam notes on file for this visit. Subjective Ms. Mosqueda is a 73 year old female who presents with the following complaint(s): The history is provided by the patient. No sign language instructor was used. Dizziness The patient's primary symptoms include weakness (lower extremity weakness). This is a recurrent problem. Associated symptoms include back pain and dizziness. Pertinent negatives include no chest pain, fatigue, headaches, light-headedness, palpitations or shortness of breath. Musculoskeletal Problem This is a chronic problem. Associated symptoms include arthralgias, myalgias and weakness (lower extremity weakness). Pertinent negatives include no chest pain, coughing, fatigue, headaches or numbness. Associated symptoms comments: Generalized joint pain. . Fatigue This is a chronic problem. The problem occurs daily. Associated symptoms include arthralgias, myalgias and weakness (lower extremity weakness). Pertinent negatives include no chest pain, coughing, fatigue, headaches or numbness. Back Pain This is a recurrent problem. Episode frequency: when walking. The problem has not changed since onset.Associated with: walking. The pain is present in the lumbar spine. Associated symptoms include weakness (lower extremity weakness). Pertinent negatives include no chest pain, no numbness and no headaches. Review of Systems Constitutional: Positive for malaise/fatigue. Negative for fatigue and unexpected weight change. HENT: Negative for nosebleeds. Eyes: Negative for redness and visual disturbance. Respiratory: Negative for apnea, cough and shortness of breath. Cardiovascular: Negative for chest pain, palpitations and leg swelling. Genitourinary: Negative for hematuria. Musculoskeletal: Positive for arthralgias, back pain and myalgias. Neurological: Positive for dizziness and weakness (lower extremity weakness). Negative for light-headedness, numbness and headaches. Hematological: Does not bruise/bleed easily. Psychiatric/Behavioral: The patient is not nervous/anxious. PAST MEDICAL HISTORY Diagnosis Date Arthritis Bug bites scratched open mosquito bites Contact lens/glasses fitting right eye contact for reading Fibromyalgia PCP follows History of cardiovascular stress test normal Palpitations controlled with metoprolol- [employer] at [place] PAST SURGICAL HISTORY Procedure Laterality Date ANKLE SURGERY HX Left x3 COLONOSCOPY SCREENING within the last 18 years per patient COLONOSCOPY SCREENING 11/12/2022 Lymphocytic colitis FOOT SURGERY HX Right 01/2023 REMOVAL GALLBLADDER FAMILY HISTORY Problem Relation Age of Onset other (multiple myeloma) Mother COPD Father No Known Problems Sister No Known Problems Brother No Known Problems Brother Colon Cancer No Family History Social History Tobacco Use Smoking status: Never Passive exposure: Never Smokeless tobacco: Never Vaping Use Vaping Use: Never used Substance Use Topics Alcohol use: No Drug use: Never Current Outpatient Medications Medication Sig ALIGN 4 mg cap take one capsule by mouth once daily metoprolol succinate ER (TOPROL XL) 25 mg 24 hr tablet Take 1 tablet by mouth once daily. hydrOXYzine HCl (ATARAX) 25 mg tablet prn pregabalin (LYRICA) 50 mg capsule Take 1 capsule by mouth three times a day. ascorbic acid, vitamin C, (VITAMIN C) 500 mg tablet Take 1 tablet by mouth once daily. vit C/E/Zn/coppr/lutein/zeaxan (PRESERVISION AREDS-2 ORAL) Take 1 tablet by mouth twice daily. DULoxetine (CYMBALTA) 60 mg capsule Take 1 capsule by mouth once daily. (Patient taking differently: Take 60 mg by mouth every morning.) pregabalin (LYRICA) 100 mg capsule Take 1 capsule by mouth three times a day. oxyCODONE-acetaminophen (PERCOCET) 5-325 mg tablet Take 1 tablet by mouth every 6 hours as needed for pain. (Patient not taking: Reported on 07/15/2023) Current Facility-Administered Medications Medication Dose Route Frequency perflutren lipid microspheres 1.3 mL in NaCl (PF) 0.9% 10 mL injection (DEFINITY) INTRAVENOUS DIRECTED PRN sodium chloride 0.9 % (flush) 10 mL (BD POSIFLUSH) 10 mL INTRAVENOUS DIRECTED PRN Facility-Administered Medications Ordered in Other Visits Medication Dose Route Frequency lidocaine (PF) 10 mg/mL (1 %) 1-2 mg injection (XYLOCAINE) 0.1-0.2 mL INTRADERMAL PRN lactated ringers iv infusion 30 mL/hr INTRAVENOUS CONTINUOUS I have confirmed and edited as necessary the past medical, family and social histories, HPI, and ROS obtained by others. Objective BP 140/90 Pulse 73 Temp 98.2 Ht 5' 2 (1.58m) Wt 183 lb (83.0kg) SpO2 92% BMI 33.46 kg/(m^2). Physical Exam Vitals and nursing note reviewed. Constitutional: General: She is not in acute distress. Appearance: Normal appearance. She is well-developed. She is not ill-appearing. HENT: Head: Normocephalic. Right Ear: Tympanic membrane, ear canal and external ear normal. There is no impacted cerumen. Left Ear: Tympanic membrane, ear canal and external ear normal. There is no impacted cerumen. Nose: Nose normal. Mouth/Throat: Mouth: Mucous membranes are moist. Pharynx: Oropharynx is clear. Uvula midline. No oropharyngeal exudate or posterior oropharyngeal erythema. Eyes: General: Lids are normal. Vision grossly intact. Gaze aligned appropriately. No scleral icterus. Right eye: No discharge. Left eye: No discharge. Extraocular Movements: Extraocular movements intact. Conjunctiva/sclera: Conjunctivae normal. Pupils: Pupils are equal, round, and reactive to light. Neck: Thyroid: No thyroid mass, thyromegaly or thyroid tenderness. Vascular: No carotid bruit. Trachea: Trachea and phonation normal. Cardiovascular: Rate and Rhythm: Normal rate and regular rhythm. Pulses: Normal pulses. Heart sounds: Normal heart sounds. Pulmonary: Effort: Pulmonary effort is normal. Breath sounds: Normal breath sounds. Abdominal: General: Abdomen is flat. Bowel sounds are normal. Palpations: Abdomen is soft. Musculoskeletal: General: Normal range of motion. Right shoulder: Normal. Left shoulder: Normal. Cervical back: Normal, full passive range of motion without pain and neck supple. No tenderness. No spinous process tenderness. Thoracic back: Normal. Lumbar back: Normal. Right knee: Normal. Left knee: Normal. Right lower leg: No edema. Left lower leg: No edema. Lymphadenopathy: Cervical: No cervical adenopathy. Skin: General: Skin is warm and dry. Neurological: General: No focal deficit present. Mental Status: She is alert and oriented to person, place, and time. Mental status is at baseline. Sensory: Sensation is intact. Motor: Motor function is intact. Psychiatric: Attention and Perception: Attention and perception normal. Mood and Affect: Mood normal. Speech: Speech normal. Behavior: Behavior normal. Thought Content: Thought content normal. Judgment: Judgment normal. Data Reviewed: Most recent labs and imaging results. ASSESSMENT/PLAN: 1. Fibromyalgia - ICD9: 729.1, ICD10: M79.7 (primary diagnosis) - Increase Lyrica. - PREGABALIN 100 MG CAPSULE 2. Leg weakness, bilateral - ICD9: 729.89, ICD10: R29.898 - Obtain MRI - MRI LUMBAR SPINE WO IVCON 3. Chronic joint pain - ICD9: 719.40, 338.29, ICD10: M25.50, G89.29 - LYME AB LATE >30 DAYS SYMPTOMS 4. Acute midline low back pain without sciatica - ICD9: 724.2, ICD10: M54.50 - MRI LUMBAR SPINE WO IVCON 5. Spinal stenosis of lumbar region with neurogenic claudication - ICD9: 724.03, ICD10: M48.062 - MRI LUMBAR SPINE WO IVCON 6. Encounter for screening mammogram for breast cancer - ICD9: V76.12, ICD10: Z12.31 - ARIAN SCREENING 7. Class 1 obesity with body mass index (BMI) of 33.0 to 33.9 in adult, unspecified obesity type, unspecified whether serious comorbidity present - ICD9: 278.00, V85.33, ICD10: E66.9, Z68.33 Return in about 4 weeks (around 08/18/2023), or if symptoms worsen or fail to improve. Portia Calhoun DO Attestation: Scribe Statement: I Liz Sam MA am scribing for, and in the presence of, Portia Calhoun DO July 21, 2023 11:43 AM. Physician Statement: I, Portia Calhoun DO, personally performed the services described in the documentation, as scribed by Liz Sam in my presence, and it is both accurate and complete July 21, 2023 11:50 AM. documented in this encounter [facility] 07-15-2023 History of Presen t illness Narrative This note was created using [employer]. Subjective Brent Mosqueda is a 73 year old female. At present good Appt made as flared in pain On lyrica and is better Neck pain Shoulder pain Not much elbow pain Wrist hand pain Hip pain Gelling Stiffness Hip pain bilateral Knee pain bilateral No ankle pain Feet pain mild Never with gout No history of jt swelling but for hand Review of Systems Objective Blood Pressure 130/59 (BP Site: Right Arm, BP Position: Sitting) Temperature 36.9 C (98.4 F) Height 157.5 cm (5' 2) Weight 84 kg (185 lb 1.6 oz) Body Mass Index 33.86 kg/m Physical Exam Vitals reviewed. Constitutional: General: She is not in acute distress. Appearance: Normal appearance. She is not ill-appearing or toxic-appearing. Cardiovascular: Rate and Rhythm: Normal rate and regular rhythm. Heart sounds: Normal heart sounds. No murmur heard. No friction rub. No gallop. Pulmonary: Effort: No respiratory distress. Breath sounds: Normal breath sounds. No stridor. No wheezing or rhonchi. Abdominal: General: There is no distension. Palpations: Abdomen is soft. There is no mass. Tenderness: There is no abdominal tenderness. Hernia: No hernia is present. Musculoskeletal: Right shoulder: Normal. Left shoulder: Normal. Right elbow: Normal. Left elbow: Normal. Right wrist: Normal. Left wrist: Normal. Right hand: Normal. Left hand: Normal. Cervical back: No rigidity or tenderness. Thoracic back: Normal. Lumbar back: Normal. Right hip: Normal. Left hip: Normal. Right knee: Normal. Left knee: Normal. Right lower leg: No edema. Left lower leg: No edema. Right ankle: Normal. Left ankle: Normal. Right foot: Normal. Left foot: Normal. Comments: Shoulder moderate Decreased range of motion Dip pip enlargement 1st cmc enlargement Z thumb Hip normal Knee minimal crepitus Foot arch normal Mid foot OA rt 2-3 toe bilateral syndactyly Lymphadenopathy: Cervical: No cervical adenopathy. Neurological: Mental Status: She is alert. Assessment and Plan First visit 07/15/2023 Polyarthralgia 2019 Hep C neg 2022 dec :uric 4.1, esr 20, RF NATTY neg CK 67 2022 IgA, gliadin Transglutaminase Ab: neg, IgA (mg/dl): 267 2023 AMA neg 2023 bilateral xr hip : Unremarkable bilateral hips. Mild degenerative change SI joints and lower lumbar spine 07/15/2023 Generalized OA no Inflammatory polyarthropathy is present Drug and disease monitoring 05/17 UA normal , cbc cmp normal, 2019 B12 545 2019 vit d 30 Fibromyalgia (( 07/19 diagnosis age 32 ) TT 07/15/2023 doing better with current tt regimen, PCP managing 07/15/2023 Neck pain (( 07/19 attributes to stress, no jaw pain, neck muscle tight ) ((07/19 denies mid back low back pain )) 2017 xr chest : There is mild scoliosis, osteopenia, and mild multilevel degenerative change seen within the thoracic spine. 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 )) ((07/19 lt shoulder pain 2022 onset )) 2021 xr left shoulder : Moderate to severe degenerative changes of the left glenohumeral joint. (07/19 images reviewed. ) TT No inj done 07/15/2023 no PT done 07/15/2023 bilateral wrist hand pain (( 07/19 no numbness, no Raynaud's Phenomenon , 2019 plus pain ) Hand OA 1st cmc OA TREATMENT No inj done 07/15/2023 bilateral hip pain lt > rt , Pain in the joint while patient is sleeping. Years, laterally not in groin ) 2023 hip xr normal ( images noted normal hip ) bilateral knee pain rt > left ((07/19 attributes to ankle issue and off loading wt )) (( 2022 worse )) TT No inj done 07/15/2023 Left foot pain (( has Degenerative arthritis but pain onset fall 2022 )) ((07/19 diff ambulation is there ) ((07/19 1976 compound surg, then 1987 bone fusion for ankle arthritis, 2001 subtalar fusion ) Rt foot pain (( 07/19 mild pain if any )) ((02/15 Bunion surg done ) 2022 cardiac perfusion normal ef 76% 2023 CT brain : mild burden of presumed chronic microvascular ischemic , anxiety and depression TT 07/15/20232022 no recurrent infection, sinus issue or respiratory issue 07/15/20232016 chest xr : Mild pleural thickening is seen within the costophrenic angles, bilaterally 2023 CT sinus normal 2022 US abd : normal liver 2022 Colonoscopy lymphocytic colitis 2022 US abd : Right Kidney: 10.8 cm in length. Mild hydronephrosis. Alternatively peripelvic cysts Ambulation issue (( Onset of falls 04/2023 4 falls )) (( 07/19 no cramps, but on ambulation weakness on leg, difficulty to do steps, weakness in the legs, has to hold on to railing)) ((07/19 exam no cerebellar sign but weakness lower ext noted ) TT No PT done 07/15/2023 07/15/2023 get PT done , if not better get MRI to see if spinal stenosis ( no cauda equina at present ) 07/15/2023 if not better can call for MRI 07/15/20232023 DXA LS 0.991 -1,4, rt fn 0.712 T -1,2 rt hip 0.860 T -0.7, left FN 0.709 T -1.3, left hip total 0.902 T -0.3 Pain mgt Percocet 5/325 ( foot surg 02/14) Motrin 600 mg at time 800 mg (( prn use once a day , hs mostly ) Cymbalta 60 mg years 07/15/2023 Lyrica 50 mg tid ( helping a lot ) 06/12/2023 started 07/15/2023 Brief Personal and family history: 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 Leann Ling MA documented in this encounter [facility] 03-08-2023 Note HNO ID: [id number] Author: Note, Interface Service: ? Author Type: ? Type: Progress Notes Filed: 03/08/2023 5:49 AM Note Text: Epic Scheduled Downtime: 03/08/2023 1:00:00 AM to 03/08/2023 1:28:00 AM [facility] 02-14-2023 Note HNO ID: [id number] Author: Lucille Flores Service: Pharmacy Author Type: ? Type: Plan of Care Filed: 02/14/2023 3:11 PM Note Text: PHARMACY BEDSIDE DELIVERY SERVICE Patient Name: Brent Mosqueda The marked outpatient medications were Filled at: [facility] and delivered to the patient's bedside to pt Medication List START taking these medications ascorbic acid (vitamin C) 500 mg tablet Commonly known as: VITAMIN C Take 1 tablet by mouth once daily. delivered oxyCODONE-acetaminophen 5-325 mg tablet Commonly known as: PERCOCET Take 1 tablet by mouth every 6 hours as needed for pain. delivered CHANGE how you take these medications DULoxetine 60 mg capsule Commonly known as: CYMBALTA Take 1 capsule by mouth once daily. What changed: when to take this metoprolol succinate ER 25 mg 24 hr tablet Commonly known as: TOPROL XL Take 1 tablet by mouth once daily. What changed: when to take this CONTINUE taking these medications ALIGN 4 mg Cap Generic drug: Bifidobacterium Infantis Take 1 capsule by mouth once daily. PRESERVISION AREDS-2 ORAL You might also be taking other medications not listed above. If you have questions about any of your other medications, talk to the person who prescribed them or your Primary Care Provider. Lucille Flores PAGER: [phone] February 14, 2023 2:59 PM [facility] 02-14-2023 Note HNO ID: [id number] Author: Rd Kennedy DO Service: Anesthesiology Author Type: Physician Type: Anesthesia Procedure Notes Filed: 02/14/2023 2:10 PM Note Text: ANESTHESIOLOGY PROCEDURE NOTE Airway General Information Procedure Start Time/Medication Administration: 02/14/2023 12:39 PM Timeout Performed Pre-procedure: timeout performed Consent Obtained: Yes Patient identity confirmed: arm band Staffing Anesthesiologist: Yolis Morin MD MAINTENANCE OF WAY CLERK: Hilary Cohn APRN.MAINTENANCE OF WAY CLERK Performed by: KASSIE Indications and Patient Condition Indications for airway management: anesthesia Preoxygenated: yes anesthesia circuit Patient position: sniffing Cricoid Pressure: No Manual In-Line Stabilization: No Difficult Mask: No Airway Accessory: LMA Final Airway Details Final airway type: supraglottic airway Ventilation between attempts: BVM Final Supraglottic Airway: LMA Unique Failed airway: no Unrecognized esophageal intubation: no Airway not difficult SIGNATURE: Hilary Cohn CRNA, APRN.CRNA PATIENT NAME: Brent Mosqueda DATE: February 14, 2023 TIME: 12:50 PM CSN: [id number] [facility] 02-14-2023 Note HNO ID: [id number] Author: Yolis Morin MD Service: Anesthesiology Author Type: Anesthesiologist Type: Anesthesia Procedure Notes Filed: 02/14/2023 12:12 PM Note Text: ANESTHESIOLOGY PROCEDURE NOTE Peripheral Nerve Block General Information Procedure Start Time/Medication Administration: 02/14/2023 11:37 AM Procedure End time: 02/14/2023 11:41 AM Patient location during procedure: pre-op Timeout Performed Pre-procedure: timeout performed Consent Obtained: Yes Patient identity confirmed: arm band Reason for block: post-op pain management/at surgeon's request Staffing Anesthesiologist: Yolis Morin MD Performed by: anesthesiologist Preparation Sterility Preparation: hand hygiene performed prior to procedure, sterile gloves, drapes, and procedure tray, surgical cap used, mask used, skin prep agent completely dried prior to procedure Sterility Technique Not Completely Performed Due to Extreme Emergency: No Site Prep: Chloraprep Pre-Procedure Neuro Exam Location: RLE Sensory: intact Motor: intact Procedure Details Patient Position: supine Monitoring: Pulse OX, EKG and NIBP Block Type Lower Extremity: distal femoral (adductor canal) Laterality: right Injection Technique: single-shot Ultrasound Guided: Yes Image in Chart: yes Local Infiltration: Yes Needle Needle Type: echogenic Needle Gauge: 21 G Needle Length: 100 mm Needle Localization: ultrasound Needle Insertion Depth: 2 cm Assessment Injection assessment: negative aspiration, no paresthesia on injection, incremental injection and local visualized surrounding nerve on ultrasound Paresthesia: none Post-Procedure Neuro Exam Expected Regional Anesthesia: Yes Medications Administered ropivacaine (PF) 5 mg/mL (0.5 %) injection (NAROPIN) - peripheral nerve block 17 mL - 02/14/2023 11:37:00 AM EPINEPHrine injection - INTRAVENOUS 50 mcg - 02/14/2023 11:37:00 AM Comments No issues with nerve block, patient tolerated well. SIGNATURE: Yolis Morin MD PATIENT NAME: Brent Mosqueda DATE: February 14, 2023 TIME: 12:11 PM CSN: [id number] [facility] 02-14-2023 Note HNO ID: [id number] Author: Yolis Morin MD Service: Anesthesiology Author Type: Anesthesiologist Type: Anesthesia Procedure Notes Filed: 02/14/2023 12:11 PM Note Text: ANESTHESIOLOGY PROCEDURE NOTE Peripheral Nerve Block General Information Procedure Start Time/Medication Administration: 02/14/2023 11:33 AM Procedure End time: 02/14/2023 11:37 AM Patient location during procedure: pre-op Timeout Performed Pre-procedure: timeout performed Consent Obtained: Yes Patient identity confirmed: arm band Reason for block: post-op pain management/at surgeon's request Staffing Anesthesiologist: Yolis Morin MD Performed by: anesthesiologist Preparation Sterility Preparation: hand hygiene performed prior to procedure, sterile gloves, drapes, and procedure tray, surgical cap used, mask used, skin prep agent completely dried prior to procedure Sterility Technique Not Completely Performed Due to Extreme Emergency: No Site Prep: Chloraprep Pre-Procedure Neuro Exam Location: RLE Sensory: intact Motor: intact Procedure Details Patient Position: supine Monitoring: Pulse OX, EKG and NIBP Block Type Lower Extremity: popliteal Laterality: right Injection Technique: single-shot Ultrasound Guided: Yes Image in Chart: yes Local Infiltration: Yes Needle Needle Type: echogenic Needle Gauge: 21 G Needle Length: 100 mm Needle Localization: ultrasound Needle Insertion Depth: 2.5 cm Assessment Injection assessment: negative aspiration, no paresthesia on injection, incremental injection and local visualized surrounding nerve on ultrasound Paresthesia: none Post-Procedure Neuro Exam Expected Regional Anesthesia: Yes Medications Administered ropivacaine (PF) 5 mg/mL (0.5 %) injection (NAROPIN) - peripheral nerve block 25 mL - 02/14/2023 11:33:00 AM EPINEPHrine injection - INTRAVENOUS 100 mcg - 02/14/2023 11:33:00 AM Comments No issues with nerve block, patient tolerated well. SIGNATURE: Yolis Morin MD PATIENT NAME: Brent Mosqueda DATE: February 14, 2023 TIME: 12:09 PM CSN: [id number] [facility] 02-14-2023 History of Past i llness Narrative Problem Noted Date Diagnosed Date Resolved Date Postoperative pain 02/14/2023 4 Foot pain, right 08/28/2022 07/15/2023 MERLYN (generalized anxiety disorder) 07/11/2021 07/15/2023 Contusion of coccyx 07/11/2021 07/15/19 24 documented as of this encounter (statuses as of 07/15/2023) [facility] History of Past illness Narrative* Problem Noted Date Diagnosed Date Resolved Date Postoperative pain 02/14/2023 4 Foot pain, right 08/28/2022 07/15/2023 MERLYN (generalized anxiety disorder) 07/11/2021 07/15/2023 Contusion of coccyx 07/11/2021 07/15/19 24 documented as of this encounter (statuses as of 07/25/2023) [facility] History of Past illness Narrative* Problem Noted Date Diagnosed Date Resolved Date Postoperative pain 02/14/2023 4 Foot pain, right 08/28/2022 07/15/2023 MERLYN (generalized anxiety disorder) 07/11/2021 07/15/2023 Contusion of coccyx 07/11/2021 07/15/19 24 documented as of this encounter (statuses as of 07/28/2023) [facility] History of Past illness Narrative* Problem Noted Date Diagnosed Date Resolved Date Postoperative pain 02/14/2023 4 Foot pain, right 08/28/2022 07/15/2023 MERLYN (generalized anxiety disorder) 07/11/2021 07/15/2023 Contusion of coccyx 07/11/2021 07/15/19 24 documented as of this encounter (statuses as of 07/31/2023) [facility] History of Past illness Narrative* Problem Noted Date Diagnosed Date Resolved Date Postoperative pain 02/14/2023 4 Foot pain, right 08/28/2022 07/15/2023 MERLYN (generalized anxiety disorder) 07/11/2021 07/15/2023 Contusion of coccyx 07/11/2021 07/15/19 24 documented as of this encounter (statuses as of 08/01/2023) [facility] History of Past illness Narrative* Problem Noted Date Diagnosed Date Resolved Date Postoperative pain 02/14/2023 4 Foot pain, right 08/28/2022 07/15/2023 MERLYN (generalized anxiety disorder) 07/11/2021 07/15/2023 Contusion of coccyx 07/11/2021 07/15/19 24 documented as of this encounter (statuses as of 08/01/2023) [facility] History of Past illness Narrative* Problem Noted Date Diagnosed Date Resolved Date Postoperative pain 02/14/2023 4 Foot pain, right 08/28/2022 07/15/2023 MERLYN (generalized anxiety disorder) 07/11/2021 07/15/2023 Contusion of coccyx 07/11/2021 07/15/19 24 documented as of this encounter (statuses as of 08/02/2023) [facility] History of Past illness Narrative* Problem Noted Date Diagnosed Date Resolved Date Postoperative pain 02/14/2023 4 Foot pain, right 08/28/2022 07/15/2023 MERLYN (generalized anxiety disorder) 07/11/2021 07/15/2023 Contusion of coccyx 07/11/2021 07/15/19 24 documented as of this encounter (statuses as of 08/04/2023) [facility] History of Past illness Narrative* Problem Noted Date Diagnosed Date Resolved Date Postoperative pain 02/14/2023 4 Foot pain, right 08/28/2022 07/15/2023 MERLYN (generalized anxiety disorder) 07/11/2021 07/15/2023 Contusion of coccyx 07/11/2021 07/15/19 24 documented as of this encounter (statuses as of 08/25/2023) [facility] History of Past illness Narrative* Problem Noted Date Diagnosed Date Resolved Date Postoperative pain 02/14/2023 4 Foot pain, right 08/28/2022 07/15/2023 MERLYN (generalized anxiety disorder) 07/11/2021 07/15/2023 Contusion of coccyx 07/11/2021 07/15/19 24 documented as of this encounter (statuses as of 08/25/2023) [facility] History of Past illness Narrative* Problem Noted Date Diagnosed Date Resolved Date Postoperative pain 02/14/2023 4 Foot pain, right 08/28/2022 07/15/2023 MERLYN (generalized anxiety disorder) 07/11/2021 07/15/2023 Contusion of coccyx 07/11/2021 07/15/19 24 documented as of this encounter (statuses as of 08/29/2023) [facility] History of Past illness Narrative* Problem Noted Date Diagnosed Date Resolved Date Postoperative pain 02/14/2023 4 Foot pain, right 08/28/2022 07/15/2023 MERLYN (generalized anxiety disorder) 07/11/2021 07/15/2023 Contusion of coccyx 07/11/2021 07/15/19 24 documented as of this encounter (statuses as of 09/12/2023) [facility]08-28-[facility]23 Miscellaneous Notes* Telephone Encounter - Jada Felipe RN - 01/20/2023 10:37 AM EDT Spoke with patient and notified of Dr. Goss message and recommendations. Patient voiced understanding. Jada Felipe RN * Telephone Encounter - Mc Ho LPN - 01/20/2023 8:45 AM EDT Left message for Brent requesting return call to [facility] for test results. [facility] phone number provided onmessage. Mc Ho LPN * Telephone Encounter - Mc Ho LPN - 01/20/2023 8:45 AM EDT ----- Message from Leonardo Goss MD sent at 01/17/2023 3:56 PM EDT ----- Normal EKG and nuclear portion of stress test documented in this encounterUniversity Hospitals Cleveland Medical Center08-25-2023 History of Present illness Narrative* Hernan Veras, RT(R) - 01/17/2023 6:30 AM EDT RADIOLOGY SERVICE PROGRESS NOTE SERVICE DATE: 01/17/2023 SERVICE TIME: 8:54 AM PATIENT IDENTITY VERIFICATION COMPLETED USING TWO (2) STANDARD IDENTIFIERS: Name and Date of confirmed by patient verbally FALL SCREENING: Has the patient had 2 falls in the last year or 1 fall with injury or currently using an Ambulatory Assistive Device (Walker, Cane, Wheelchair, Crutches, etc.)? No PATIENT GENDER DATA: .female : No ALLERGIES: Reviewed and unchanged MEDICATIONS REVIEWED: Yes PATIENT RELEVANT IMPLANT DATA REVIEWED: Not Applicable CREATININE: Creatinine Date Value Ref Range Status 08/28/2022 0.96 0.58 - 0.96 mg/dL Final 07/19/2019 0.77 0.58 - 0.96 mg/dL Final 04/22/2017 0.73 0.51 - 0.95 mg/dL Final Estimated Glomerular Filtration Rate Date Value Ref Range Status 08/28/2022 64 >=60 mL/min/1.73m Final Comment: Estimated Glomerular Filtration Rate (eGFR) is calculated using the 2020 CKD-EPI creatinine equation. This equation utilizes serum creatinine, sex, and age as parameters. The creatinine assay has traceable calibration to isotope dilution- mass spectrometry. Refer to KDIGO guidelines for clinical interpretation. In patients with unstable renal function, e.g. those with acute kidney injury, the eGFRmay not accurately reflect actual GFR. eGFR- Date Value Ref Range Status 07/19/2019 >60 Final P.O.C.T. RESULTS: N/A January 17, [address] PERFORMED: No IV SITE: Ambulatory: A peripheral IV was started in the Left antecubital site with a Angio cath: 22gauge. POST EXAM PIV STATUS: Discontinued PROCEDURE TYPE: NM Stress: 11.5 mCi [id number] was administered IV for Rest Imaging at 06:55 by MS. 29.4 mCi [id number] was administered IV for Stress Imaging at 08:30 by EULOGIO. ADMINISTRATION TIME: 06:55 PATIENT DISCHARGED TO: Ambulatory patient, left MA department area. A Diagnostic radioactive procedure has taken place, with no further precautions necessary other than routine body substance precautions. More information regarding radiation safety can be found usingthis link: [email or web address] SIGNATURE: RT Carie(R) PATIENT NAME: Brent Mosqueda DATE: January 17, 2023 TIME: 8:54 AM PAGER/CONTACT #: documented in this encounterUniversity Hospitals Cleveland [facility] Center08-25-2023 Miscellaneous Notes* Result Encounter Note - Leonardo Goss MD - 01/17/2023 6:30 AM EDT Normal EKG and nuclear portion of stress test documented in this encounterUniversity Hospitals Cleveland Medical Center08-25-2023 Nurse Note* Penny Gomez [employer] Manager - 01/17/2023 6:30 AM EDT Nuclear stress test explained. Pt verbalized understanding and had the opportunity to ask and have questions answered. documented in this encounterUniversity Hospitals Cleveland Medical Center08-01-2023 Miscellaneous Notes* Telephone Encounter - Mecca Dumas - 12/24/2022 2:41 PM EDT Patient has been identified by name and date of : Yes Last office visit in this department: 08/28/2022 RX INSTRUCTIONS: Patient aware RX will be sent to pharmacy. No need to notify patient. Patient phones requesting refills as follows: Requested Prescriptions Pending Prescriptions Disp Refills metoprolol succinate ER (TOPROL XL) 25 mg 24 hr tablet 30 tablet 2 Sig: Take 1 tablet by mouth once daily. Please review and advise. Mecca Dumas documented in this encounterUniversity Hospitals Cleveland [facility] Center07-13-2023 Instructions* Patient Instructions* Leonardo Goss MD - 12/05/2022 9:53 AM EDT Ventricular premature beats (The Basics) Written by the doctors and editors at [facility] What are ventricular premature beats? -- Ventricular premature beats (called VPBs here) are extra beats that happen before a normal heartbeat. The heart is divided into 4 sections, called chambers. VPBs start in 1 of the 2 lower chambers, called the ventricles. VPBs are caused by a problem with the heart s electrical system, in which the ventricles send abnormal electrical signals. These signals cause the extra beats. VPBs are common. They can happen in healthy people. They can also happen in people who have different types of heart disease. VPBs are very common after a heart attack. What are the symptoms of VPBs? -- Most people with VPBs do not have any symptoms. A doctor or nursemight find VPBs when he or she listens to your heart during an exam. Or doctors might find VPBs if they do a heart test called an electrocardiogram, also called an ECG or EKG. If you do have symptoms, they can include: ?Feeling like the heart is beating hard, beating fast, or seems to skip a beat - These heartbeat changes are called palpitations. ?Feeling dizzy or lightheaded ?A pounding feeling in the neck You might be more likely to notice VPBs when you lie quietly in bed at night or lie on your left side. Should I see a doctor or nurse? -- If your heart often seems to beat fast or hard, or skip beats, talk to your doctor or nurse. VPBs are common, but you might have another condition that is causing the symptoms. VPBs can also be a sign of a more serious heart condition. Is there a test for VPBs? -- Yes. The doctor or nurse will do an exam and learn about your symptoms. He or she can also do the following tests: ?An electrocardiogram - This test, also called an ECG or EKG, measures the electrical activity in your heart. ?A Holter monitor - This is a small, portable machine you wear that records all your heart s electrical activity over 1 or 2 days. If you have VPBs often or the doctor thinks you could have a specific heart condition, he or she can order other tests. How are VPBs treated? -- Treatment depends on what is causing the VPBs and whether they cause symptoms. If you do not have symptoms, you might not need any treatment. If the VPBs are caused by another heart condition, doctors will treat that condition. Possible treatments include: ?Medicines to control the speed or rhythm of your heartbeat ?A procedure called ablation - During this procedure, the doctor uses heat (called radiofrequency ablation ) or cold (called cryoablation ) to destroy the small part of the heart that is sending the abnormal electrical signals. You might have this treatment if medicines do not control VPBs. All topics are updated as new evidence becomes available and our peer review process is complete. This topic retrieved from [employer] on: Nov 30, 2015. The content on the [employer] website is not intended nor recommended as a substitute for medical advice, diagnosis, or treatment. Always seek the advice of your own physician or other qualified healthcare professional regarding any medical questions or conditions. The use of [employer] content is governed by the [employer] Terms of Use. 2016 [employer]. All rights reserved. Topic 37980 Version 2.0 documented in this encounterUniversity Hospitals [facility] Center07-13-2023 History of Present illness Narrative* Leonardo Goss MD - 12/05/2022 9:37 AM EDT PRIMARY CARE PHYSICIAN: Estefany Preciado ([facility]) [address] [place] [id number] REFERRING PHYSICIAN: SELF CHIEF COMPLAINT: Patient presents with: New Patient: Referred by Dr. Preciado for palpitations HPI: Mrs Ness was kindly referred to me by Dr Preciado. From a cardiac standpoint, she has a history ofanxiety disorder. She mentioned that she has been having some familial stressors. For several year,she noticed palpitations off, and on. She tends to notice them when she is lying in bed at night time. She denies chest pain, loss of consciousness, but did admit to some intermittent lightheadedness. She underwent a holter monitor in 09/15, and the results revealed inus rhythm, with occasional premature ventricular complexes ( 2% burden). She also had inus tachycardia ( burden 18%). She had two runs of nonsustained supraventricular tachycardia, ( 5 beats, with a heart rate of 150 beats per minute). She was started on Toprol-XL 25 mg daily. Today, her main concern was about the palpitations, finding of PVCs on her Holter monitor. History reviewed. No pertinent past medical history. PAST SURGICAL HISTORY Procedure Laterality Date ANKLE SURGERY HX Left COLONOSCOPY SCREENING within the last 18 years per patient COLONOSCOPY SCREENING 11/12/2022 Lymphocytic colitis REMOVAL GALLBLADDER SOCIAL HISTORY Social History Tobacco Use Smoking status: Never Smokeless tobacco: Never Vaping Use Vaping Use: Never used Substance Use Topics Alcohol use: No Drug use: No FAMILY HISTORY Problem Relation Age of Onset Colon Cancer No Family History ALLERGIES: ALLERGIES No Known Allergies MEDICATIONS: budesonide, enteric coated (ENTOCORT EC) 3 mg 24 hr capsule^Take 3 capsules by mouth once daily for56 days, THEN 2 capsules once daily for 14 days, THEN 1 capsule once daily for 14 days.^Disp: 210 capsule^Rfl: 0 metoprolol succinate ER (TOPROL XL) 25 mg 24 hr tablet^Take 1 tablet by mouth once daily.^Disp: 30 tablet^Rfl: 2 buPROPion XL (WELLBUTRIN XL) 150 mg 24 hr tablet^Take 1 tablet by mouth once daily.^Disp: 90 tablet^Rfl: 3 DULoxetine (CYMBALTA) 60 mg capsule^Take 1 capsule by mouth once daily.^Disp: 90 capsule^Rfl: 3 hydrOXYzine HCl (ATARAX) 25 mg tablet^TAKE ONE TABLET BY MOUTH EVERY DAY AT BEDTIME^Disp: 30 tablet^Rfl: 5 (Patient not taking: Reported on 12/05/2022) colestipol (COLESTID) 1 gram tablet^Take 1 tablet by mouth twice daily.^Disp: 180 tablet^Rfl: 0 (Patient not taking: Reported on 12/05/2022) nabumetone (RELAFEN) 500 mg tablet^TAKE ONE TABLET BY MOUTH TWICE A DAY NEEDED^Disp: 60 tablet^Rfl: 1 (Patient not taking: Reported on 12/05/2022) dicyclomine (BENTYL) 20 mg tablet^Take 1 tablet by mouth before meals and at bedtime.^Disp: 90 tablet^Rfl: 0 (Patient not taking: Reported on 12/05/2022) REVIEW OF SYSTEMS: GENERAL: Negative for:Weight loss and Weight gain HEENT: Negative for:Nosebleeds RESPIRATORY: Negative for:Shortness of breath GASTROINTESTINAL: Negative for:Blood in stool MUSCULOSKELETAL: Negtive for: Muscle or joint pain, stiffness, Joint swelling SKIN: No rash HEMATOLOGICAL/LYMPHATIC: Negative for: Easy bruising and Easy bleeding CARDIOVASCULAR: As stated in HPI. 10 system review negative except as stated in HPI I have confirmed and edited as necessary, the Past, Family, Social History and Review Of Systems, obtained by my office staff. PHYSICAL EXAMINATION: BP 125/74 Pulse 66 Resp 12 Ht 5' 2 (1.58m) Wt 160 lb (72.6kg) SpO2 96[room air]% BMI 29.26 kg/(m^2). General: Well appearing, in no acute distress, speaking in complete sentences., Well appearing. Psych: Normal Affect Eyes: No subconjunctival hemorrhage Skin: No rash, bruising Oropharynx: Mucous membranes normal Neck: no jugular venous distention, no carotid bruits. Lymph: No cervical lymphadenopathy Lungs: Clear to auscultation bilaterally, no wheezing or rhonchi. Heart: S1, S2 normal, no murmur Extremities: No peripheral edema Neuro: Grossly nonfocal ASSESSMENT/PLAN: 1. Palpitations - ICD9: 785.1, ICD10: R00.2 (primary diagnosis) Likely secondary to premature ventricular contractions, short run of supraventricular tachycardia. Continue Toprol-XL. 2. MERLYN (generalized anxiety disorder) - ICD9: 300.02, ICD10: F41.1 On Wellbutrin. 3. Dypnea on exertion - ICD 1-: R 06.0 ? Anginal equivalent. Her father was diagnosed with coronary artery disease in his 70s. Her Holter monitor revealed a 2% PVC burden. I will proceed with a nuclear stress test. She wants to try walking the treadmill. She did mention that she may not be able to stay too long on the treadmill. If she is unable to achieve target heart rate, we can switch her to Lexiscan. 4. Premature ventricular complexes - ICD 10: I 49.3 See above for my recommendations about ischemic evaluation. Continue Toprol-XL. Leonardo Goss MD The above note was partially created using a dictation recognition software. A reasonable attempt has been made to correct any errors. documented in this encounterUniversity Hospitals Cleveland Medical Center06-20-2023 Miscellaneous Notes* Telephone Encounter - Griselda Wheatley RN - 11/12/2022 3:50 PM EDT PA pending in Cover My Meds for hydroxyzine. documented in this encounterUniversity Hospitals Cleveland Medical Center06-20-2023 Nurse Note* Prem Vasquez RN - 11/12/2022 2:13 PM EDT Physician at bedside. Discharge instructions given and patient voices understanding. All questions answered. Prem Vasquez RN [facility]06-[facility]-2023 Nurse Note* Prem Vasquez RN - 11/12/2022 2:13 PM EDT Physician at bedside. Discharge instructions given and patient voices understanding. All questions answered. Prem Vasquez RN documented in this encounterUniversity Hospitals Cleveland Medical Center06-20-2023 Nurse procedure note* Sedation Documentation - Lucille Palumbo RN - 11/12/2022 1:42 PM EDT Abdominal support applied. [facility] Miscellaneous Notes* Sedation Documentation - Lucille Palumbo RN - 11/12/2022 1:42 PM EDT Abdominal support applied. * Result Encounter Note - Shy Barrios MD - 11/12/2022 1:00 PM EDT Please call patient and advise that colonoscopy was abnormal, showing lymphocytic colitis. Patient needs routine follow up to review symptoms and biopsy results Shy Barrios MD documented in this encounterUniversity Hospitals Cleveland [facility] Center06-20-2023 Progress note* Result Encounter Note - Shy Barrios MD - 11/12/2022 1:00 PM EDT Please call patient and advise that colonoscopy was abnormal, showing lymphocytic colitis. Patient needs routine follow up to review symptoms and biopsy results Shy Barrios MD [facility] Work Phone: [phone]) 698-319705-05-2023 Miscellaneous Notes* Telephone Encounter - Griselda Wheatley RN - 09/27/2022 4:09 PM EDT Patient notified. * Telephone Encounter - Carla Salas Ma - 09/27/2022 8:44 AM EDT Left message on patients voicemail to call our office back Carla Salas Ma * Telephone Encounter - Yenifer Taveras Ma - 09/26/2022 11:02 AM EDT Left message on machine to return call Items addressed in this encounter: Results Yenifer Taveras Ma September 26, 2022 11:03 AM 11:03 AM * Telephone Encounter - Estefany Preciado MD - 09/25/2022 5:00 PM EDT Please call patient and advise holter showed nothing too concerning or dangerous. Some extra beats here and there, and some runs of fast heart beats. Make sure to see the math and physics instructor as scheduled/discussed and she may benefit from a low dose beta alfonzo, which I sent over. documented in this encounterUniversity Hospitals Cleveland [facility] Center04-14-2023 History of Present illness Narrative* Daphnie Siddiqi RDMS - 09/06/2022 1:45 PM EDT Radiology Service Progress Note PATIENT NAME: Brent Mosqueda DATE OF SERVICE: September 06, 2022 TIME: 2:02 PM PATIENT IDENTITY VERIFICATION COMPLETED USING TWO (2) IDENTIFIERS: Name and Date of confirmedby patient verbally. FALL SCREENING: Has the patient had 2 falls in the last year or 1 fall with injury or currently using an Ambulatory Assistive Device (Walker, Cane, Wheelchair, Crutches, etc.)? No PATIENT GENDER DATA: Female. status: : No status: NO. PATIENT RELEVANT IMPLANT DATA REVIEWED: Not Applicable RADIOLOGY DEPARTMENT: Ultrasound PERIPHERAL IV DATA: Not applicable SIGNED BY: Daphnie Siddiqi RDMS September 06, 2022 2:02 PM documented in this encounterUniversity Hospitals [facility] Center04-12-2023 Miscellaneous Notes* Telephone Encounter - Ana Michelle - 09/04/2022 5:04 PM EDT Please resend to schedulers once patient is aware of GI referral * Addendum Note - Estefany Preciado MD - 09/04/2022 4:58 PM EDTAddended by: ESTEFANY PRECIADO on: 09/04/2022 04:58 PM Modules accepted: Orders * Telephone Encounter - Estefany Preciado MD - 09/04/2022 4:56 PM EDT Her chol is fine. I faxed something else for the diarrhea, but she needs to schedule with a GI doctor to eval further. Ordered. I faxed a mild sleep aid also. * Telephone Encounter - Jani Guaman Pss - 09/04/2022 3:51 PM EDT I offered to schedule patient w/ cardiology here at our [facility] facility or informed patientI could submit to the [facility] portal for central scheduling to call her for another location. Patient states that she had it handled that she was on the other line scheduling for cardiology. * Telephone Encounter - Conrado Jimenez RN - 09/04/2022 3:41 PM EDT Patient notified, please schedule. She will call for echo. Patient said that medication for diarrhea is not helping at all. She is concerned about her cholesterol. She also forgot to tell you that she is having trouble getting and staying asleep. Please advise. * Telephone Encounter - Ana Wheeler Pss - 09/04/2022 11:34 AM EDT When informing the patient please have her call [phone] to schedule the ECHO * Telephone Encounter - Estefany Preciado MD - 09/04/2022 11:29 AM EDT Stool cx all negative, no infection. Try the new med and let me know if no better. Also, the Holter was also normal, no significant concerning rthythms. If she has continued palpitations we can order an echo, please process, and have her see a math and physics instructor. ordered documented in this encounterUniversity Hospitals Cleveland Medical Center04-12-2023 Miscellaneous Notes* Telephone Encounter - Conrado Jimenez RN - 09/04/2022 3:36 PM EDT Notified. * Telephone Encounter - Yenifer Taveras Ma - 09/04/2022 9:54 AM EDT Left message on machine to return call * Telephone Encounter - Estefany Preciado MD - 09/04/2022 7:00 AM EDT Lab called they can't add the additional labs, pt needs to stop by again to be drawn. Order is in, stop by for labs please. * Telephone Encounter - Estefany Preciado MD - 09/04/2022 7:00 AM EDT ----- Message from Susan Sapp sent at 09/03/2022 6:12 PM EDT ----- Regarding: Test Cancellation Please place a new order for ALKISO, if clinically indicated. Unable to add on testing due to the requirement of a serum tube. Please recollect if necessary. Thank you. If any questions, please contact Laboratory Client Services. DO NOT REPLY TO THIS MESSAGE. documented in this encounterUniversity Hospitals Cleveland Medical Center04-07-2023 Nurse Note* Debra Santos LPN - 08/30/2022 5:32 PM EDT Patient returned the holter monitor and did have some concerns about the proper placement during her 48 hour tracking. Patient reports she did have it on for a good amount of time while having palpitations. Patient reports she has night sweats which caused a few of the leads to move or fall off. Holter and diary returned intact, diary faxed and holter downloaded. Debra Santos LPN documented in this encounterUniversity Hospitals Cleveland Medical Center04-07-2023 Miscellaneous Notes* Telephone Encounter - Carla Salas Ma - 08/30/2022 1:34 PM EDT SEE BOTH MESSAGES * Telephone Encounter - Ana Michelle - 08/30/2022 1:00 PM EDT When informing the patient, please let her know that she may call [phone] to set up the US * Telephone Encounter - Estefany Preciado MD - 08/30/2022 12:16 PM EDT Labs ok for most part but her liver enzymes are somewhat elevated. Ask lab to add alk phos isoenzymes to blood that's in the lab. If they can't pt needs to stop by for another draw. Also needs a liver US to eval further. Ordered. documented in this encounterUniversity Hospitals Cleveland Medical Center04-06-2023 Miscellaneous Notes* Telephone Encounter - Griselda Wheatley RN - 08/29/2022 4:05 PM EDT FYI - Patient calls to notify that the black lead on her holter fell off for several hours during the night due to sweating profusely. She meant to discuss these night sweats during her visit but forgot to. States they have been going on for a while. She was able to reattach the lead and will try to reinforce it tonight. documented in this encounterUniversity Hospitals Cleveland Medical Center04-05-2023 History of Present illness Narrative* Estefany Preciado MD - 08/28/2022 3:39 PM EDT This note was created using Twinedriter. Subjective Brent Mosqueda is a 72 year old female. The history is provided by the patient. Diarrhea This is a chronic (pt has 3 mo of diarrhea, no new meds no new diet.) problem. The current episode started more than 1 week ago. The problem occurs 5 to 10 times per day. Associated symptoms include arthralgias and myalgias. UTI This is a new (pt also here for UTI sxs. had hematuria, frequency. 1 time only) problem. Pain (foot) This is a new (pt also here for foot pain and hammer toe) problem. Palpitations This is a new (has a few weeks of random fast heart beats, skips. often at night.) problem. The current episode started 1 to 4 weeks ago. Has frequent stools. All liquid, not really water. 1 time hematuria, resolved. Never had that in past. No dysuria, no frequency. Review of Systems Constitutional: Negative. HENT: Negative. Respiratory: Negative. Cardiovascular: Positive for palpitations. Gastrointestinal: Positive for diarrhea. Genitourinary: Positive for dysuria. Musculoskeletal: Positive for arthralgias and myalgias. Objective BP 124/88 Pulse 88 Temp 36.1 C (97 F) (Left Tympanic) Ht 157.5 cm (5' 2) Wt 72.6 kg (160 lb) SpO2 95% BMI 29.26 kg/m Physical Exam Vitals and nursing note reviewed. Constitutional: Appearance: Normal appearance. She is well-developed. HENT: Head: Normocephalic and atraumatic. Cardiovascular: Rate and Rhythm: Normal rate and regular rhythm. Pulmonary: Effort: Pulmonary effort is normal. Breath sounds: Normal breath sounds. Abdominal: General: Bowel sounds are normal. Palpations: Abdomen is soft. Tenderness: There is abdominal tenderness in the suprapubic area. R foot with pain dorsally Assessment and Plan ASSESSMENT/PLAN: 1. Macroscopic hematuria - ICD9: 599.71, ICD10: R31.0 (primary diagnosis) UCX, resolved, but if recurs will need US and further eval - UA DIP, URINE (POC) - URINE CULTURE - URINE CULTURE 2. Chronic diarrhea - ICD9: 787.91, ICD10: K52.9 Cultures, if neg she may have IBS-D, has had IBS in past. More increased stress lately Low concern as there is no bloody stools Will try levsin if no better will consider viberzi - C. DIFFICILE PCR - OVA + PARA MICROSCOPIC - ENTERIC BACTERIAL PANEL BY PCR 3. Foot pain, right - ICD9: 729.5, ICD10: M79.671 As per podiatry 4. Other fatigue - ICD9: 780.79, ICD10: R53.83 - CBC + DIFF - COMP METABOLIC PANEL - T4 FREE/FREE THYROX - T3 FREE BLD - TSH BLD - LIPID PANEL, NONFASTING - VITAMIN B12 BLOOD - C-REACTIVE PROTEIN (CRP) 5. Palpitations - ICD9: 785.1, ICD10: R00.2 - HOLTER MONITOR 48 HOUR Estefany Preciado MD documented in this encounterUniversity Hospitals Cleveland Medical Center04-03-2023 Miscellaneous Notes* Telephone Encounter - Shayla Cox - 08/26/2022 4:46 PM EDT Patient already scheduled for 08/28. * Telephone Encounter - Adali Grier PA-C - 08/26/2022 4:29 PM EDT Please call and schedule for appointment prior to refill. * Telephone Encounter - Jani Guaman [facility] - 08/23/2022 2:09 PM EDT Patient has been identified by name and date of : Yes Last office visit in this department: 07/11/2021 RX INSTRUCTIONS: Patient aware RX will be sent to pharmacy. No need to notify patient. Patient phones requesting refills as follows: Requested Prescriptions Pending Prescriptions Disp Refills buPROPion XL (WELLBUTRIN XL) 150 mg 24 hr tablet 90 tablet 3 Sig: Take 1 tablet by mouth once daily. DULoxetine (CYMBALTA) 60 mg capsule 90 capsule 3 Sig: Take 1 capsule by mouth once daily. Please review and advise. Jani Guaman Pss [facility] Miscellaneous Notes* Telephone Encounter - Lucy Farris RN - 11/06/2021 8:38 AM EDT Patient has been identified by name and date of : Yes Last office visit in this department: Visit date not found RX INSTRUCTIONS: Patient aware RX will be sent to pharmacy. No need to notify patient. Pending Prescriptions Disp Refills NABUMETONE 500 MG TABLET 60 tablet 2 Sig: TAKE ONE TABLET BY MOUTH TWICE A DAY NEEDED GIANNA: Yes Please review and advise. Lucy Farris RN [facility] Diagnosis Encounter for screening mammogram for breast cancer documented in this encounter [facility]* Diagnosis Macroscopic hematuria- Primary Gross hematuria Chronic diarrhea Diarrhea Foot pain, right Pain in limb Other fatigue Palpitations documented in this encounter [facility] note* Diagnosis Elevated liver enzymes- Primary Other nonspecific abnormal serum enzyme levels documented in this encounter [facility] note* Diagnosis Palpitations- Primary documented in this encounter [facility]* Diagnosis Palpitations- Primary Chronic diarrhea Diarrhea documented in this encounter [facility] note* Diagnosis Elevated LFTs- Primary Other abnormal blood chemistry documented in this encounter [facility]* Diagnosis Palpitations- Primary MERLYN (generalized anxiety disorder) Generalized anxiety disorder VELÁZQUEZ (dyspnea on exertion) Other dyspnea and respiratory abnormality PVC (premature ventricular contraction) Other premature beats documented in this encounter [facility]* Diagnosis VELÁZQUEZ (dyspnea on exertion) Other dyspnea and respiratory abnormality PVC (premature ventricular contraction) Other premature beats Dislocation of tarsometatarsal joint of right foot, initial encounter Arthritis of right ankle Unspecified arthropathy, ankle and foot Right ankle pain, unspecified chronicity documented in this encounter [facility] note* Diagnosis Elevated liver enzymes Other nonspecific abnormal serum enzyme levels documented in this encounter [facility]* Diagnosis Lymphocytic colitis Other and unspecified noninfectious gastroenteritis and colitis documented in this encounter [facility]* Diagnosis Generalized osteoarthrosis- Primary Generalized osteoarthrosis, unspecified site Fibromyalgia Mylagia and myositis, unspecified Recurrent falls while walking [facility] Diagnosis Leg weakness, bilateral Other musculoskeletal symptoms referable to limbs Acute midline low back pain without sciatica Spinal stenosis of lumbar region with neurogenic claudication Spinal stenosis, lumbar region, with neurogenic claudication [facility]* Diagnosis Fibromyalgia- Primary Mylagia and myositis, unspecified Leg weakness, bilateral Other musculoskeletal symptoms referable to limbs Chronic joint pain Pain in joint, site unspecified Acute midline low back pain without sciatica Spinal stenosis of lumbar region with neurogenic claudication Spinal stenosis, lumbar region, with neurogenic claudication Encounter for screening mammogram for breast cancer Class 1 obesity with body mass index (BMI) of 33.0 to 33.9 in adult, unspecified obesity type, unspecified whether serious comorbidity present [facility] Diagnosis Spinal stenosis of lumbar region with neurogenic claudication- Primary Spinal stenosis, lumbar region, with neurogenic claudication Low back pain, unspecified back pain laterality, unspecified chronicity, unspecified whether sciatica present- Primary documented [facility]* Diagnosis Lumbar radiculopathy- Primary Thoracic or lumbosacral neuritis or radiculitis, unspecified documented in this encounter [facility]* Diagnosis Generalized osteoarthrosis- Primary Generalized osteoarthrosis, unspecified site Fibromyalgia Mylagia and myositis, unspecified Recurrent falls while walking [facility]* Diagnosis Recurrent falls while walking- Primary Fibromyalgia Mylagia and myositis, unspecified Generalized osteoarthrosis Generalized osteoarthrosis, unspecified site [facility]* Diagnosis Recurrent falls while walking- Primary Fibromyalgia Mylagia and myositis, unspecified Generalized osteoarthrosis Generalized osteoarthrosis, unspecified site [facility]* Diagnosis Recurrent falls while walking- Primary Fibromyalgia Mylagia and myositis, unspecified Generalized osteoarthrosis Generalized osteoarthrosis, unspecified site [facility]* Diagnosis Lymphocytic colitis Other and unspecified noninfectious gastroenteritis and colitis [facility]* Diagnosis Lumbar radiculopathy- Primary Thoracic or lumbosacral neuritis or radiculitis, unspecified documented [facility] this [facility]* Diagnosis Lumbar radiculopathy- Primary Thoracic or lumbosacral neuritis or radiculitis, unspecified Lumbar radiculopathy Thoracic or lumbosacral neuritis or radiculitis, unspecified documented in this encounter [facility]* Diagnosis Preop examination- Primary Preoperative examination, unspecified Lumbar radiculopathy Thoracic or lumbosacral neuritis or radiculitis, unspecified Palpitations Lumbar radiculopathy Thoracic or lumbosacral neuritis or radiculitis, unspecified * Assessment & Plan Note - Flaca Tate APRN.CNP - 11/07/2023 9:16 AM EDT Associated Problem(s): Palpitations Controlled with metoprolol, instructed to take morning of surgery Stress test 01/17/2023 CONCLUSIONS: 1. SPECT Perfusion Study: Normal. 2. There is no scintigraphic evidence for inducible ischemia. 3. No evidence of scarred myocardium. 4. Left ventricle is small. The left ventricle systolic function is hyperdynamic. 5. Right ventricle is normal in size. The right ventricle systolic function is normal. 6. This is a low risk scan. * Assessment & Plan Note - Flaca Tate APRN.CNP - 11/07/2023 9:16 AM EDT Associated Problem(s): Preop examination Patient has the following medical conditions which may affect carlin-operative course addressed in assessment and plan today. * Assessment & Plan Note - Flaca Tate APRN.CNP - 11/07/2023 9:16 AM EDT Associated Problem(s): Lumbar radiculopathy Surgery scheduled with Dr. Rizo on 11/20/2023 documented in this encounter [facility]* Diagnosis Lumbar radiculopathy Thoracic or lumbosacral neuritis or radiculitis, unspecified Lumbar radiculopathy Thoracic or lumbosacral neuritis or radiculitis, unspecified documented in this encounter [facility]* Diagnosis S/P lumbar fusion- Primary Arthrodesis status documented in this encounter [facility]* Diagnosis S/P lumbar fusion Arthrodesis status documented in this encounter [facility]* Diagnosis Lumbar radiculopathy- Primary Thoracic or lumbosacral neuritis or radiculitis, unspecified documented in this encounter [facility]* Diagnosis S/P lumbar fusion Arthrodesis status Lumbar radiculopathy Thoracic or lumbosacral neuritis or radiculitis, unspecified documented in this encounter [facility]* Diagnosis S/P lumbar fusion- Primary Arthrodesis status Lumbar radiculopathy Thoracic or lumbosacral neuritis or radiculitis, unspecified Class 1 obesity with body mass index (BMI) of 33.0 to 33.9 in adult, unspecified obesity type, unspecified whether serious comorbidity present documented in this encounter [facility]* Diagnosis S/P lumbar fusion Arthrodesis status S/P lumbar fusion- Primary Arthrodesis status documented in this encounter [facility]* Diagnosis S/P lumbar fusion- Primary Arthrodesis status documented in this encounter [facility]* Diagnosis Lymphocytic colitis Other and unspecified noninfectious gastroenteritis and colitis documented in this encounter [facility]* Diagnosis Chronic diarrhea Diarrhea documented in this encounter [facility]* Diagnosis Preop examination- Primary Preoperative examination, unspecified Lumbar radiculopathy Thoracic or lumbosacral neuritis or radiculitis, unspecified Palpitations S/P lumbar fusion- Primary Arthrodesis status documented in this encounter [facility]* Diagnosis Preop examination- Primary Preoperative examination, unspecified Lumbar radiculopathy Thoracic or lumbosacral neuritis or radiculitis, unspecified Palpitations S/P lumbar fusion Arthrodesis status documented in this encounter [facility]* Diagnosis Preop examination- Primary Preoperative examination, unspecified Lumbar radiculopathy Thoracic or lumbosacral neuritis or radiculitis, unspecified Palpitations Lymphocytic colitis Other and unspecified noninfectious gastroenteritis and colitis documented in this encounter [facility]* Diagnosis Preop examination- Primary Preoperative examination, unspecified Lumbar radiculopathy Thoracic or lumbosacral neuritis or radiculitis, unspecified Palpitations Fibromyalgia Mylagia and myositis, unspecified documented in this encounter [facility]* Diagnosis Preop examination- Primary Preoperative examination, unspecified Lumbar radiculopathy Thoracic or lumbosacral neuritis or radiculitis, unspecified Palpitations Lumbar radiculopathy- Primary Thoracic or lumbosacral neuritis or radiculitis, unspecified documented in this encounter [facility]* Diagnosis Preop examination- Primary Preoperative examination, unspecified Lumbar radiculopathy Thoracic or lumbosacral neuritis or radiculitis, unspecified Palpitations S/P lumbar fusion Arthrodesis status documented in this encounter [facility]* Diagnosis Preop examination- Primary Preoperative examination, unspecified Lumbar radiculopathy Thoracic or lumbosacral neuritis or radiculitis, unspecified Palpitations Lumbar radiculopathy Thoracic or lumbosacral neuritis or radiculitis, unspecified documented in this encounter [facility]* Diagnosis Preop examination- Primary Preoperative examination, unspecified Lumbar radiculopathy Thoracic or lumbosacral neuritis or radiculitis, unspecified Palpitations S/P lumbar fusion- Primary Arthrodesis status Anxiety with depression Lumbar radiculopathy Thoracic or lumbosacral neuritis or radiculitis, unspecified Fibromyalgia Mylagia and myositis, unspecified Trigeminal neuralgia Screening for hyperlipidemia Screening for lipoid disorders Screening for thyroid disorder BMI 34.0-34.9,adult Body Mass Index 34.0-34.9, adult documented in this encounter [facility]* Diagnosis Preop examination- Primary Preoperative examination, unspecified Lumbar radiculopathy Thoracic or lumbosacral neuritis or radiculitis, unspecified Palpitations Elevated alkaline phosphatase level- Primary Other nonspecific abnormal serum enzyme levels Other irritable bowel syndrome Esophageal dysphagia Dysphagia, pharyngoesophageal phase documented in this encounter [facility]* Diagnosis Preop examination- Primary Preoperative examination, unspecified Lumbar radiculopathy Thoracic or lumbosacral neuritis or radiculitis, unspecified Palpitations Lumbar radiculopathy- Primary Thoracic or lumbosacral neuritis or radiculitis, unspecified documented in this encounter [facility]* Diagnosis Preop examination- Primary Preoperative examination, unspecified Lumbar radiculopathy Thoracic or lumbosacral neuritis or radiculitis, unspecified Palpitations Esophageal dysphagia Dysphagia, pharyngoesophageal phase documented in this encounter [facility]* Diagnosis Preop examination- Primary Preoperative examination, unspecified Lumbar radiculopathy Thoracic or lumbosacral neuritis or radiculitis, unspecified Palpitations Lumbar radiculopathy- Primary Thoracic or lumbosacral neuritis or radiculitis, unspecified Recurrent falls while walking documented in this encounter [facility]* Diagnosis Preop examination- Primary Preoperative examination, unspecified Lumbar radiculopathy Thoracic or lumbosacral neuritis or radiculitis, unspecified Palpitations Elevated LFTs Other abnormal blood chemistry documented in this encounter [facility]* Diagnosis Preop examination- Primary Preoperative examination, unspecified Lumbar radiculopathy Thoracic or lumbosacral neuritis or radiculitis, unspecified Palpitations Trigeminal neuralgia- Primary Elevated LFTs Other abnormal blood chemistry Class 1 obesity with body mass index (BMI) of 34.0 to 34.9 in adult, unspecified obesity type, unspecified whether serious comorbidity present Elevated LFTs Other abnormal blood chemistry documented in this encounter [facility]* Diagnosis Preop examination- Primary Preoperative examination, unspecified Lumbar radiculopathy Thoracic or lumbosacral neuritis or radiculitis, unspecified Palpitations Lumbar radiculopathy- Primary Thoracic or lumbosacral neuritis or radiculitis, unspecified documented in this encounter [facility]* Diagnosis Preop examination- Primary Preoperative examination, unspecified Lumbar radiculopathy Thoracic or lumbosacral neuritis or radiculitis, unspecified Palpitations Anxiety with depression- Primary S/P lumbar fusion- Primary Arthrodesis status [facility]* Diagnosis Preop examination- Primary Preoperative examination, unspecified Lumbar radiculopathy Thoracic or lumbosacral neuritis or radiculitis, unspecified Palpitations S/P lumbar fusion- Primary Arthrodesis status Radiculopathy of lumbar region Thoracic or lumbosacral neuritis or radiculitis, unspecified documented [facility] this [facility]* Diagnosis Preop examination- Primary Preoperative examination, unspecified Lumbar radiculopathy Thoracic or lumbosacral neuritis or radiculitis, unspecified Palpitations S/P lumbar fusion Arthrodesis status documented [facility] this [facility]* Diagnosis Preop examination- Primary Preoperative examination, unspecified Lumbar radiculopathy Thoracic or lumbosacral neuritis or radiculitis, unspecified Palpitations Abnormal liver enzymes Other nonspecific abnormal serum enzyme levels Abnormal results of liver function studies Nonspecific abnormal results of liver function study documented in this [facility]* Diagnosis Preop examination- Primary Preoperative examination, unspecified Lumbar radiculopathy Thoracic or lumbosacral neuritis or radiculitis, unspecified Palpitations Alkaline phosphatase elevation- Primary Other nonspecific abnormal serum enzyme levels documented [facility] this encounter [facility]* Diagnosis Preop examination- Primary Preoperative examination, unspecified Lumbar radiculopathy Thoracic or lumbosacral neuritis or radiculitis, unspecified Palpitations Radiculopathy of lumbar region Thoracic or lumbosacral neuritis or radiculitis, unspecified documented [facility] this [facility]* Diagnosis Preop examination- Primary Preoperative examination, unspecified Lumbar radiculopathy Thoracic or lumbosacral neuritis or radiculitis, unspecified Palpitations Radiculopathy of lumbar region Thoracic or lumbosacral neuritis or radiculitis, unspecified documented [facility] this [facility]* Diagnosis Preop examination- Primary Preoperative examination, unspecified Lumbar radiculopathy Thoracic or lumbosacral neuritis or radiculitis, unspecified Palpitations Lumbar radiculopathy- Primary Thoracic or lumbosacral neuritis or radiculitis, unspecified documented in this encounter [facility]* Diagnosis Preop examination- Primary Preoperative examination, unspecified Lumbar radiculopathy Thoracic or lumbosacral neuritis or radiculitis, unspecified Palpitations Radiculopathy, lumbar region- Primary Thoracic or lumbosacral neuritis or radiculitis, unspecified documented in this encounter [facility]* Diagnosis Preop examination- Primary Preoperative examination, unspecified Lumbar radiculopathy Thoracic or lumbosacral neuritis or radiculitis, unspecified Palpitations Abnormal liver enzymes- Primary Other nonspecific abnormal serum enzyme levels Abnormal results of liver function studies Nonspecific abnormal results of liver function study Abnormal liver enzymes Other nonspecific abnormal serum enzyme levels Abnormal results of liver function studies Nonspecific abnormal results of liver function study documented in this encounter [facility]* Diagnosis Preop examination- Primary Preoperative examination, unspecified Lumbar radiculopathy Thoracic or lumbosacral neuritis or radiculitis, unspecified Palpitations Lumbar radiculopathy- Primary Thoracic or lumbosacral neuritis or radiculitis, unspecified Radiculopathy, lumbar region Thoracic or lumbosacral neuritis or radiculitis, unspecified documented in this encounter [facility]* Diagnosis Preop examination- Primary Preoperative examination, unspecified Lumbar radiculopathy Thoracic or lumbosacral neuritis or radiculitis, unspecified Palpitations Encounter for screening mammogram for breast cancer documented in this encounter [facility]* Diagnosis Preop examination- Primary Preoperative examination, unspecified Lumbar radiculopathy Thoracic or lumbosacral neuritis or radiculitis, unspecified Palpitations Sacroiliitis- Primary Sacroiliitis, not elsewhere classified documented in this encounter [facility]* Diagnosis Preop examination- Primary Preoperative examination, unspecified Lumbar radiculopathy Thoracic or lumbosacral neuritis or radiculitis, unspecified Palpitations Anxiety due to invasive procedure- Primary documented in this encounter [facility]* Diagnosis Preop examination- Primary Preoperative examination, unspecified Lumbar radiculopathy Thoracic or lumbosacral neuritis or radiculitis, unspecified Palpitations Spinal stenosis of cervical region- Primary Spinal stenosis in cervical region Degenerative disc disease, cervical Degeneration of cervical intervertebral disc Impairment of balance Abnormality of gait Post laminectomy syndrome Postlaminectomy syndrome, unspecified region Sacroiliitis Sacroiliitis, not elsewhere classified [facility]* Diagnosis Preop examination- Primary Preoperative examination, unspecified Lumbar radiculopathy Thoracic or lumbosacral neuritis or radiculitis, unspecified Palpitations Chronic bilateral low back pain without sciatica- Primary Impairment of balance Abnormality of gait Post laminectomy syndrome Postlaminectomy syndrome, unspecified region documented [facility] this [facility]* Diagnosis Preop examination- Primary Preoperative examination, unspecified Lumbar radiculopathy Thoracic or lumbosacral neuritis or radiculitis, unspecified Palpitations Spinal stenosis of cervical region Spinal stenosis in cervical region Degenerative disc disease, cervical Degeneration of cervical intervertebral disc Impairment of balance Abnormality of gait documented [facility] this [facility]* Diagnosis Preop examination- Primary Preoperative examination, unspecified Lumbar radiculopathy Thoracic or lumbosacral neuritis or radiculitis, unspecified Palpitations Anxiety with depression documented [facility] this [facility]* Diagnosis Preop examination- Primary Preoperative examination, unspecified Lumbar radiculopathy Thoracic or lumbosacral neuritis or radiculitis, unspecified Palpitations Spinal stenosis of cervical region Spinal stenosis in cervical region Impairment of balance Abnormality of gait documented in this encounter [facility] note* Diagnosis Preop examination- Primary Preoperative examination, unspecified Lumbar radiculopathy Thoracic or lumbosacral neuritis or radiculitis, unspecified Palpitations Chronic bilateral low back pain without sciatica- Primary documented [facility]* Diagnosis Preop examination- Primary Preoperative examination, unspecified Lumbar radiculopathy Thoracic or lumbosacral neuritis or radiculitis, unspecified Palpitations Sacroiliitis- Primary Sacroiliitis, not elsewhere classified Degenerative disc disease, cervical Degeneration of cervical intervertebral disc Spinal stenosis of cervical region Spinal stenosis in cervical region Impairment of balance Abnormality of gait documented in this encounter [facility]* Diagnosis Preop examination- Primary Preoperative examination, unspecified Lumbar radiculopathy Thoracic or lumbosacral neuritis or radiculitis, unspecified Palpitations Degenerative disc disease, cervical Degeneration of cervical intervertebral disc Spinal stenosis of cervical region Spinal stenosis in cervical region Impairment of balance Abnormality of gait documented in this encounter [facility] note* Diagnosis Preop examination- Primary Preoperative examination, unspecified Lumbar radiculopathy Thoracic or lumbosacral neuritis or radiculitis, unspecified Palpitations Chronic bilateral low back pain without sciatica- Primary documented in this encounter [facility] note* Diagnosis Preop examination- Primary Preoperative examination, unspecified Lumbar radiculopathy Thoracic or lumbosacral neuritis or radiculitis, unspecified Palpitations Anxiety with depression documented in this encounter [facility] note* Diagnosis Preop examination- Primary Preoperative examination, unspecified Lumbar radiculopathy Thoracic or lumbosacral neuritis or radiculitis, unspecified Palpitations Gait abnormality- Primary Abnormality of gait documented in this encounter [facility] note* Diagnosis Preop examination- Primary Preoperative examination, unspecified Lumbar radiculopathy Thoracic or lumbosacral neuritis or radiculitis, unspecified Palpitations Medicare annual wellness visit, subsequent- Primary Routine general medical examination at a health care facility Encounter for screening mammogram for breast cancer Change in bowel habits Other symptoms involving digestive system Generalized arthritis Anxiety with depression Arthritis of both hands Overweight with body mass index (BMI) of 25 to 25.9 in adult documented in this encounter [facility] note* Diagnosis Preop examination- Primary Preoperative examination, unspecified Lumbar radiculopathy Thoracic or lumbosacral neuritis or radiculitis, unspecified Palpitations Chronic bilateral low back pain without sciatica- Primary documented in this encounter [facility] note* Diagnosis Preop examination- Primary Preoperative examination, unspecified Lumbar radiculopathy Thoracic or lumbosacral neuritis or radiculitis, unspecified Palpitations Gait abnormality Abnormality of gait documented in this encounter [facility] for referral (narrative)* Diagnostic Procedure Only (Routine) - Pending Review Specialty Diagnoses / Procedures Referred By Vipin garcia Referred To Contact BR IMAGING Diagnoses Encounter for screening mammogram for breast cancer Procedures ARIAN SCREENING SCREENING MAMMOGRAPHY BI 2-VIEW BREAST INC Estefany Perez MD [address] [place] [address] Br Imaging [facility] [place] [address] Referral ID Status Reason Start Date Expiration Date Visits Requested Visits Authorized [id number] Pending Review Auto-Generat ed Referral 06/19/2022 07/19/2023 1 1 [facility] for referral (narrative)* Diagnostic Procedure Only (Routine) - Pending Review Specialty Diagnoses / Procedures Referred By Vipin garcia Referred To Contact US IMAGING Diagnoses Elevated liver enzymes Procedures US ABD RIGHT UPPER QUADRANT US ABDOMINAL REAL TIME W/IMAGE LIMITED Estefany Preciado MD [address] [place] [address] Us Imaging Referral ID Status Reason Start Date Expiration Date Visits Requested Visits Authorized [id number] Pending Review Auto-Generat ed Referral 08/30/2022 09/29/2023 1 1 [facility] for referral (narrative)* Diagnostic Procedure Only (Routine) - Pending Review Specialty Diagnoses / Procedures Referred By Vipin garcia Referred To Contact MOLECULAR & FUNCTIONAL IMAGING Diagnoses VELÁZQUEZ (dyspnea on exertion) PVC (premature ventricular contraction) Procedures NM CARDIAC PERF STRESS/EXERCISE MYOCARDIAL SPECT MULTIPLE STUDIES Leonardo Goss MD [address] [place] [address] Molecular & Functional Imaging [address] [place] [address] Referral ID Status Reason Start Date Expiration Date Visits Requested Visits Authorized [id number] Pending Review Auto-Generat ed Referral 12/05/2022 01/04/2024 1 1 [facility] for referral (narrative)* Diagnostic Procedure Only (Routine) - Closed Specialty Diagnoses / Procedures Referred By Vipin garcia Referred To Contact MOLECULAR & FUNCTIONAL IMAGING Diagnoses VELÁZQUEZ (dyspnea on exertion) PVC (premature ventricular contraction) Procedures NM CARDIAC PERF STRESS/EXERCISE MYOCARDIAL SPECT MULTIPLE STUDIES Leonardo Goss MD [address] [place] [address] Molecular & Functional Imaging [address] [id number] Referral ID Status Reason Start Date Expiration Date V isits Requested Visits Authorized [id number] Closed Auto-Generate d Referral 12/11/2022 02/09/2023 1 1 [facility] for referral (narrative)* Diagnostic Procedure Only (Routine) - Closed Specialty Diagnoses / Procedures Referred By Contac t Referred To Contact US IMAGING Diagnoses Elevated liver enzymes Procedures US ABD RIGHT UPPER QUADRANT US ABDOMINAL REAL TIME W/IMAGE LIMITED Estefany Preciado MD [address] [place] [address] [place] [address] Referral ID Status Reason Start Date Expiration Date V isits Requested Visits Authorized [id number] Closed Auto-Generate d Referral 08/30/2022 09/29/2023 1 1 [facility] for referral (narrative)* Diagnostic Procedure Only (Routine) - Closed Specialty Diagnoses / Procedures Referred By Contac t Referred To Contact XR IMAGING Diagnoses Low back pain, unspecified back pain laterality, unspecified chronicity, unspecified whether sciatica present Procedures XR LUMBAR MOTION 4V AP/LAT/ FLEX/EXT RADEX SPINE LUMBOSACRAL MINIMUM 4 VIEWS Stephen Rizo, [address] [place] [address] [place] [address] Referral ID Status Reason Start Date Expiration Date V isits Requested Visits Authorized [id number] Closed Auto-Generate d Referral 07/30/2023 08/28/2024 1 1 [facility] for referral (narrative)* Diagnostic Procedure Only (Routine) - Pending Review Specialty Diagnoses / Procedures Referred By Contac t Referred To Contact XR IMAGING Diagnoses S/P lumbar fusion Procedures XR LUMBAR LIMITED 2V AP/LAT RADEX SPINE LUMBOSACRAL 2/3 VIEWS Stephen Rizo, DO [address] [place] [address] [place] [address] Referral ID Status Reason Start Date Expiration Date Visits Requested Visits Authorized [id number] Pending Review Auto-Generat ed Referral 11/26/2023 12/25/2024 1 1 [facility] for referral (narrative)* Diagnostic Procedure Only (Routine) - New Request Specialty Diagnoses / Procedures Referred By Contac t Referred To Contact XR IMAGING Diagnoses S/P lumbar fusion Procedures XR LUMBAR LIMITED 2V AP/LAT RADEX SPINE LUMBOSACRAL 2/3 VIEWS Stephen Rizo, DO [address] [address] [place] [address] Referral ID Status Reason Start Date Expiration Date Visits Requested Visits Authorized [id number] New Request Auto-Generat ed Referral 01/06/2024 01/21/2025 1 1 * Diagnostic Procedure Only (Routine) - Closed Specialty Diagnoses / Procedures Referred By Contac t Referred To Contact XR IMAGING Diagnoses S/P lumbar fusion Procedures XR LUMBAR LIMITED 2V AP/LAT RADEX SPINE LUMBOSACRAL 2/3 VIEWS Stephen Rizo DO [address] [place] [place] [address] [place] [address] Referral ID Status Reason Start Date Expiration Date V isits Requested Visits Authorized [id number] Closed Auto-Generate d Referral 12/23/2023 01/21/2025 1 1 [facility] for referral (narrative)* Outpatient Procedure (Routine) - Closed Specialty Diagnoses / Procedures Referred By Contac t Referred To Contact [facility] Diagnoses Chronic diarrhea Procedures COLONOSCOPY DIAGNOSTIC COLONOSCOPY FLX DX W/COLLJ SPEC WHEN PFRMD Devorah Salazar PA-C [address] [place] [address] [facility] [address] [place] [address] Referral ID Status Reason Start Date Expiration Date V isits Requested Visits Authorized [id number] Closed Auto-Generate d Referral 10/31/2022 11/01/2023 1 1 [facility] for referral (narrative)* Diagnostic Procedure Only (Routine) - New Request Specialty Diagnoses / Procedures Referred By Contac t Referred To Contact XR IMAGING Diagnoses S/P lumbar fusion Procedures XR LUMBAR LIMITED 2V AP/LAT RADEX SPINE LUMBOSACRAL 2/3 VIEWS Stephen Rizo, [address] [facility] [place] [address] Xr Imaging [facility] Referral ID Status Reason Start Date Expiration Date Visits Requested Visits Authorized [id number] New Request Auto-Generat ed Referral 02/17/2024 03/17/2025 1 1 [facility] for referral (narrative)* Diagnostic Procedure Only (Routine) - Authorized Specialty Diagnoses / Procedures Referred By Contac t Referred To Contact XR IMAGING Diagnoses Esophageal dysphagia Procedures XR ESOPHAGRAM RADIOLOGIC EXAM ESOPHAGUS SINGLE CONTRAST STUDY Devorah Salazar PA-C [address] [place] [address] [place] [address] Referral ID Status Reason Start Date Expiration Date Visits Requested Visits Authorized [id number] Authorized Auto-Generat ed Referral 06/21/2024 07/21/2025 1 1 [facility] for referral (narrative)* Diagnostic Procedure Only (Routine) - Closed Specialty Diagnoses / Procedures Referred By Contac t Referred To Contact XR IMAGING Diagnoses Esophageal dysphagia Procedures XR ESOPHAGRAM RADIOLOGIC EXAM ESOPHAGUS SINGLE CONTRAST STUDY Devorah Salazar PA-C [address] [place] [address] [place] [address] Referral ID Status Reason Start Date Expiration Date V isits Requested Visits Authorized [id number] Closed Auto-Generate d Referral 06/21/2024 07/21/2025 1 1 [facility] for referral (narrative)* Diagnostic Procedure Only (Routine) - Closed Specialty Diagnoses / Procedures Referred By Contac t Referred To Contact US IMAGING Diagnoses Elevated LFTs Procedures US ABD RIGHT UPPER QUADRANT US ABDOMINAL REAL TIME W/IMAGE LIMITED [facility]Asc[facility] Center[facility], [place] [address] [place] [address] Referral ID Status Reason Start Date Expiration Date V isits Requested Visits Authorized [id number] Closed Auto-Generate d Referral 06/21/2024 07/21/2025 1 1 [facility] for referral (narrative)* Diagnostic Procedure Only (Routine) - Closed Specialty Diagnoses / Procedures Referred By Contac t Referred To Contact US IMAGING Diagnoses Elevated LFTs Procedures US ABD RIGHT UPPER QUADRANT US ABDOMINAL REAL TIME W/IMAGE LIMITED [facility], [place] [address] [place] [address] Referral ID Status Reason Start Date Expiration Date V isits Requested Visits Authorized [id number] Closed Auto-Generate d Referral 06/21/2024 07/21/2025 1 1 [facility] for visit Narrative* Diagnostic Procedure Only (Routine) - Closed Specialty Diagnoses / Procedures Referred By Contac t Referred To Contact MOLECULAR & FUNCTIONAL IMAGING Diagnoses VELÁZQUEZ (dyspnea on exertion) PVC (premature ventricular contraction) Procedures NM CARDIAC PERF STRESS/EXERCISE MYOCARDIAL SPECT MULTIPLE STUDIES Leonardo Goss MD [address] [facility] [address] [place] [address] Molecular & Functional Imaging [address] [place], [place] [id number] Referral ID Status Reason Start Date Expiration Date V isits Requested Visits Authorized [id number] Closed Auto-Generate d Referral 12/11/2022 02/09/2023 1 1 [facility] for visit Narrative* Diagnostic Procedure Only (Routine) - Closed Specialty Diagnoses / Procedures Referred By Contac t Referred To Contact XR IMAGING Diagnoses Low back pain, unspecified back pain laterality, unspecified chronicity, unspecified whether sciatica present Procedures XR LUMBAR MOTION 4V AP/LAT/ FLEX/EXT RADEX SPINE LUMBOSACRAL MINIMUM 4 VIEWS Stephen Rizo, DO [address] [place] [address] [place] [address] Referral ID Status Reason Start Date Expiration Date V isits Requested Visits Authorized [id number] Closed Auto-Generate d Referral 07/30/2023 08/28/2024 1 1 [facility] for visit Narrative* Diagnostic Procedure Only (Routine) - Closed Specialty Diagnoses / Procedures Referred By Contac t Referred To Contact XR IMAGING Diagnoses S/P lumbar fusion Procedures XR LUMBAR LIMITED 2V AP/LAT RADEX SPINE LUMBOSACRAL 2/3 VIEWS Stephen Rizo, DO [address] [place] [address] [place] [address] Referral ID Status Reason Start Date Expiration Date V isits Requested Visits Authorized [id number] Closed Auto-Generate d Referral 12/04/2023 05/25/2024 1 1 [facility] for visit Narrative* Diagnostic Procedure Only (Routine) - Closed Specialty Diagnoses / Procedures Referred By Contac t Referred To Contact XR IMAGING Diagnoses S/P lumbar fusion Procedures XR LUMBAR LIMITED 2V AP/LAT RADEX SPINE LUMBOSACRAL 2/3 VIEWS Stephen Rizo, DO [address] [place] [address] [place] [address] Referral ID Status Reason Start Date Expiration Date V isits Requested Visits Authorized [id number] Closed Auto-Generate d Referral 12/23/2023 01/21/2025 1 1 [facility] for visit Narrative* Outpatient Procedure (Routine) - Closed Specialty Diagnoses / Procedures Referred By Contac t Referred To Contact [facility] Diagnoses Chronic diarrhea Procedures COLONOSCOPY DIAGNOSTIC COLONOSCOPY FLX DX W/COLLJ SPEC WHEN PFRMD Devorah Salazar PA-C [address] [place] [address] [facility] [address] [place] [address] Referral ID Status Reason Start Date Expiration Date V isits Requested Visits Authorized [id number] Closed Auto-Generate d Referral 10/31/2022 11/01/2023 1 1 [facility] for visit Narrative* Diagnostic Procedure Only (Routine) - Closed Specialty Diagnoses / Procedures Referred By Contac t Referred To Contact XR IMAGING Diagnoses S/P lumbar fusion Procedures XR LUMBAR LIMITED 2V AP/LAT RADEX SPINE LUMBOSACRAL 2/3 VIEWS Stephen Rizo P, DO [address] [place] [address] [place] [address] Referral ID Status Reason Start Date Expiration Date V isits Requested Visits Authorized [id number] Closed Auto-Generate d Referral 01/06/2024 01/21/2025 1 1 [facility] for visit Narrative* Diagnostic Procedure Only (Routine) - Closed Specialty Diagnoses / Procedures Referred By Contac t Referred To Contact XR IMAGING Diagnoses S/P lumbar fusion Procedures XR LUMBAR LIMITED 2V AP/LAT RADEX SPINE LUMBOSACRAL 2/3 VIEWS Stephen iRzo, DO [address] [place] [address] [place] [address] Referral ID Status Reason Start Date Expiration Date V isits Requested Visits Authorized [id number] Closed Auto-Generate d Referral 02/17/2024 03/17/2025 1 1 [facility] for visit Narrative* Diagnostic Procedure Only (Routine) - Closed Specialty Diagnoses / Procedures Referred By Contac t Referred To Contact XR IMAGING Diagnoses Esophageal dysphagia Procedures XR ESOPHAGRAM RADIOLOGIC EXAM ESOPHAGUS SINGLE CONTRAST STUDY Devorah Salazar PA-C [address] [place] [address] [place] [address] Referral ID Status Reason Start Date Expiration Date V isits Requested Visits Authorized [id number] Closed Auto-Generate d Referral 06/21/2024 07/21/2025 1 1 [facility] for visit Narrative* Diagnostic Procedure Only (Routine) - Closed Specialty Diagnoses / Procedures Referred By Contac t Referred To Contact XR IMAGING Diagnoses S/P lumbar fusion Procedures XR LUMBAR LIMITED 2V AP/LAT RADEX SPINE LUMBOSACRAL 2/3 VIEWS Stephen Rizo P, DO [address] [place] [address] Phone: tel: fax: [place] [address] Referral ID Status Reason Start Date Expiration Date V isits Requested Visits Authorized [id number] Closed Auto-Generate d Referral 07/26/2024 08/25/2025 1 1 [facility] for visit Narrative* MRI/CT (Routine) - Closed Specialty Diagnoses / Procedures Referred By Contac t Referred To Contact CT IMAGING Diagnoses Abnormal liver enzymes Abnormal results of liver function studies Procedures CT LIVER W IVCON CT ABDOMEN W/CONTRAST Devorah Salazar PA-C [address] [place] [address] Phone: tel: fax: [place] [address] Referral ID Status Reason Start Date Expiration Date V isits Requested Visits Authorized [id number] Closed Auto-Generate d Referral 07/29/2024 09/27/2024 1 1 [facility] for visit Narrative* MRI/CT (Routine) - Closed Specialty Diagnoses / Procedures Referred By Contac t Referred To Contact MR IMAGING Diagnoses Radiculopathy of lumbar region Procedures MRI LUMBAR SPINE WO/W IVCON MRI SPINAL CANAL LUMBAR W/O & W/CONTR MATRL Stephen Rizo, DO [address] [address] Phone: tel: fax: [place] [address] Referral ID Status Reason Start Date Expiration Date V isits Requested Visits Authorized [id number] Closed Auto-Generat ed Referral Clearance Not Met - Admin/Chairm an/Director Advise to Postpone/Res chedule or Not Proceed 08/16/2024 10/15/2024 1 1 [facility] for visit Narrative* MRI/CT (Routine) - Closed Specialty Diagnoses / Procedures Referred By Contac t Referred To Contact CT IMAGING Diagnoses Radiculopathy of lumbar region Procedures CT LUMBAR SPINE WO IVCON CT LUMBAR SPINE W/O CONTRAST MATERIAL Stephen Rizo, DO [address] [place] [address] Phone: tel: fax: [place] [address] Referral ID Status Reason Start Date Expiration Date V isits Requested Visits Authorized [id number] Closed Auto-Generat ed Referral Clearance Not Met - Admin/Chairm an/Director Advise to Postpone/Res chedule or Not Proceed 08/16/2024 10/15/2024 1 1 [facility] for visit Narrative* Diagnostic Procedure Only (Routine) - Closed Specialty Diagnoses / Procedures Referred By Contac t Referred To Contact XR IMAGING Diagnoses Spinal stenosis of cervical region Degenerative disc disease, cervical Impairment of balance Procedures XR CERV OTHER 4V AP/LAT/OBL RADEX SPINE CERVICAL 4 OR 5 VIEWS Zi Stanton DO [address] [facility] [address] [place] [address] Phone: tel: fax: [place] [address] Referral ID Status Reason Start Date Expiration Date V isits Requested Visits Authorized [id number] Closed Auto-Generate d Referral 12/03/2024 01/02/2026 1 1 [facility] for visit Narrative* MRI/CT (Routine) - Closed Specialty Diagnoses / Procedures Referred By Contac t Referred To Contact MR IMAGING Diagnoses Spinal stenosis of cervical region Impairment of balance Procedures MRI CERVICAL SPINE WO IVCON MRI SPINAL CANAL CERVICAL W/O CONTRAST RANDOLPHL Zi Stanton DO [address] [facility] [address] [place] [address] Phone: tel: fax: [place] [address] Referral ID Status Reason Start Date Expiration Date V isits Requested Visits Authorized [id number] Closed Auto-Generate d Referral 12/08/2024 02/06/2025 1 1 [facility] for visit Narrative* Diagnostic Procedure Only (Routine) - Closed Specialty Diagnoses / Procedures Referred By Contac t Referred To Contact XR IMAGING Diagnoses Degenerative disc disease, cervical Spinal stenosis of cervical region Impairment of balance Procedures XR CERVICAL 2V FLEX/EXT RADEX SPINE CERVICAL 2 OR 3 VIEWS Zi Stanton DO [address] [facility] [address] [place] [address] Phone: tel: fax: [place] [address] Referral ID Status Reason Start Date Expiration Date V isits Requested Visits Authorized [id number] Closed Auto-Generate d Referral 01/06/2025 02/05/2026 1 1 [facility] for visit Narrative* MRI/CT (Routine) - Closed Specialty Diagnoses / Procedures Referred By Contac t Referred To Contact MR IMAGING Diagnoses Gait abnormality Procedures MRI THORACIC SPINE WO IVCON MRI SPINAL CANAL THORACIC W/O CONTRAST MATRL Stephen Rizo, DO [address] [place] [address] Phone: tel: fax: [place] [address] Referral ID Status Reason Start Date Expiration Date V isits Requested Visits Authorized [id number] Closed Auto-Generate d Referral 01/28/2025 03/29/2025 1 1 [facility] Summary Purpose Family History No Family History Records FoundNo Family History Records FoundNo Family History Records FoundNo Family History Records FoundNo Family History Records FoundNo Family History Records FoundNo Family History Records Found Advance Directives No Advanced Directives Records FoundNo Advanced Directives Records FoundNo Advanced Directives Records FoundNo Advanced Directives Records FoundNo Advanced Directives Records FoundNo Advanced Directives Records FoundNo Advanced Directives Records Found Reason for Referral Specialty Diagnoses / Procedures Referred By Contac t Referred To Contact Gastroenterology Diagnoses Chronic diarrhea Procedures CONSULT TO GASTROENTEROLOGY OFFICE/OUTPATIENT [facility] 60-74 MINUTES Estefany Preciado MD [address] [place] [address] Referral ID Status Reason Start Date Expiration Date Visits Requested Visits Authorized [id number] Authorized PCP Requested Referral 09/04/2022 09/04/2023 1 1 Specialty Diagnoses / Procedures Referred By Contac t Referred To Contact Cardiology Diagnoses Palpitations Procedures CONSULT TO CARDIOLOGY OFFICE/OUTPATIENT [facility] 60-74 MINUTES Estefany Preciado MD [address] [place] [address] Referral ID Status Reason Start Date Expiration Date Visits Requested Visits Authorized [id number] Authorized PCP Requested Referral 09/04/2022 09/04/2023 1 1 Specialty Diagnoses / Procedures Referred By Contac t Referred To Contact [facility] Diagnoses Palpitations Procedures ECHO ECHO TTHRC R-T 2D W/WOM-MODE COMPL SPEC&COLR D Estefany Preciado MD [address] [place] [address] [address] Referral ID Status Reason Start Date Expiration Date Visits Requested Visits Authorized [id number] Authorized Auto-Generat ed Referral 09/04/2022 11/03/2022 1 1 Specialty Diagnoses / Procedures Referred By Contac t Referred To Contact [facility] Diagnoses Generalized osteoarthrosis Fibromyalgia Recurrent falls while walking Procedures CONSULT TO PHYSICAL THERAPY PHYSICAL THERAPY EVALUATION HIGH COMPLEX 45 MINS Rito Adam MD [address] [place] [address] [facility] [place] [address] [place] [address] Referral ID Status Reason Start Date Expiration Date Visits Requested Visits Authorized [id number] Pending Review Auto-Generat ed Referral 07/15/2023 07/14/2024 1 1 Specialty Diagnoses / Procedures Referred By Gageac t Referred To Contact MR IMAGING Diagnoses Leg weakness, bilateral Acute midline low back pain without sciatica Spinal stenosis of lumbar region with neurogenic claudication Procedures MRI LUMBAR SPINE WO IVCON MRI SPINAL CANAL LUMBAR W/O CONTRAST MATERIAL Portia Calhoun, [address] [address] Mr Imaging [facility] Referral ID Status Reason Start Date Expiration Date Visits Requested Visits Authorized [id number] Waiting for Online Response Auto-Genera carrlo Referral Patient Cleared - Admin/Chair man/Directo r advise to proceed or did not respond 07/21/2023 08/19/2024 1 1 Specialty Diagnoses / Procedures Referred By Vipin t Referred To Contact BR IMAGING Diagnoses Encounter for screening mammogram for breast cancer Procedures ARIAN SCREENING SCREENING MAMMOGRAPHY BI 2-VIEW BREAST INC CAD [facility], [address] [address] Br Imaging [address] [place] [address] Referral ID Status Reason Start Date Expiration Date Visits Requested Visits Authorized [id number] Pending Review Auto-Generat ed Referral 07/21/2023 08/19/2024 1 1 Specialty Diagnoses / Procedures Referred By Vipin t Referred To Contact [facility] Diagnoses Spinal stenosis of lumbar region with neurogenic claudication Procedures CONSULT TO [facility] NyHortenciaPortia Jarad, [address] [address] Referral ID Status Reason Start Date Expiration Date Visits Requested Visits Authorized [id number] Ref Not Required PCP Requested Referral 07/31/2023 07/30/2024 1 1 Specialty Diagnoses / Procedures Referred By Vipin t Referred To Contact [facility] Diagnoses Generalized osteoarthrosis Fibromyalgia Recurrent falls while walking Procedures PT REHAB FOLLOW UP ORDER PT REHAB FOLLOW UP ORDER PT REHAB FOLLOW UP ORDER THERAPEUTIC EXERCISES RE, EA 15 MIN. Sagar Calero, PT [facility] [address] [place] [address] Referral ID Status Reason Start Date Expiration Date Visits Requested Visits Authorized [id number] Pending Review PCP Requested Referral Auto-Generate d Referral 08/04/2023 11/02/2023 1 1 Specialty Diagnoses / Procedures Referred By Contac t Referred To Contact PHYSICAL THERAPY Diagnoses Lumbar radiculopathy Procedures CONSULT TO PHYSICAL THERAPY PHYSICAL THERAPY EVALUATION HIGH COMPLEX 45 MINS Stephen Rizo, DO [address] [place] [address] Pt [facility] [address] [place] [address] Referral ID Status Reason Start Date Expiration Date Visits Requested Visits Authorized [id number] Pending Review Auto-Generat ed Referral 4 05/11/2025 1 1 Specialty Diagnoses / Procedures Referred By Contac t Referred To Contact [facility] Diagnoses Lumbar radiculopathy Procedures PT REHAB FOLLOW UP ORDER THERAPEUTIC EXERCISES RE, EA 15 MIN. Pérez Ling, PT [address] [place] [address] [facility] [address] [place] [address] Referral ID Status Reason Start Date Expiration Date Visits Requested Visits Authorized [id number] New Request PCP Requested Referral Auto-Generate d Referral 06/04/2024 09/02/2024 1 1 Additional Source Comments INFORMATION SOURCE (unrecogn ized section and content) DATE CREATED AUTHOR 11/14/2017 [facility] DATE CREATED AUTHOR AUTHOR'S ORGANIZ ATION 07/23/2021 [facility] DATE CREATED AUTHOR AUTHOR'S ORGANIZ ATION 03/10/2023 [facility] DATE CREATED AUTHOR AUTHOR'S ORGANIZ ATION 07/27/2023 [facility] DATE CREATED AUTHOR AUTHOR'S ORGANIZ ATION 03/29/2025 [facility] DATE CREATED AUTHOR AUTHOR'S ORGANIZ ATION 03/30/2025 [facility] DATE CREATED AUTHOR AUTHOR'S ORGANIZ ATION 04/02/2025 [facility] Source Comments (unrecognize d section and content) In the event this informatio n is protected by the Federal Confidentiality of Alcohol and Drug Abuse Patient Records regulations: The Federal rules restrict any use of the information to criminally investigate or prosecute any alcohol or drug abuse patient.[facility] the event this information is protected by the Federal Confidentiality of Alcohol and Drug Abuse Patient Records regulations: The Federal rules restrict any use of the information to criminally investigate or prosecute any alcohol or drug abuse patient.[facility] the event this information is protected by the Federal Confidentiality of Alcohol and Drug Abuse Patient Records regulations: The Federal rules restrict any use of the information to criminally investigate or prosecute any alcohol or drug abuse patient.[facility] CenterIn the event this information is protected by the Federal Confidentiality of Alcohol and Drug Abuse Patient Records regulations: The Federal rules restrict any use of the information to criminally investigate or prosecute any alcohol or drug abuse patient.[facility] the event this information is protected by the Federal Confidentiality of Alcohol and Drug Abuse Patient Records regulations: The Federal rules restrict any use of the information to criminally investigate or prosecute any alcohol or drug abuse patient.[facility] CenterIn the event this information is protected by the Federal Confidentiality of Alcohol and Drug Abuse Patient Records regulations: The Federal rules restrict any use of the information to criminally investigate or prosecute any alcohol or drug abuse patient.[facility] CenterIn the event this information is protected by the Federal Confidentiality of Alcohol and Drug Abuse Patient Records regulations: The Federal rules restrict any use of the information to criminally investigate or prosecute any alcohol or drug abuse patient.[facility] CenterIn the event this information is protected by the Federal Confidentiality of Alcohol and Drug Abuse Patient Records regulations: The Federal rules restrict any use of the information to criminally investigate or prosecute any alcohol or drug abuse patient.[facility] CenterIn the event this information is protected by the Federal Confidentiality of Alcohol and Drug Abuse Patient Records regulations: The Federal rules restrict any use of the information to criminally investigate or prosecute any alcohol or drug abuse patient.[facility] CenterIn the event this information is protected by the Federal Confidentiality of Alcohol and Drug Abuse Patient Records regulations: The Federal rules restrict any use of the information to criminally investigate or prosecute any alcohol or drug abuse patient.[facility] CenterIn the event this information is protected by the Federal Confidentiality of Alcohol and Drug Abuse Patient Records regulations: The Federal rules restrict any use of the information to criminally investigate or prosecute any alcohol or drug abuse patient.[facility] CenterIn the event this information is protected by the Federal Confidentiality of Alcohol and Drug Abuse Patient Records regulations: The Federal rules restrict any use of the information to criminally investigate or prosecute any alcohol or drug abuse patient.[facility] CenterIn the event this information is protected by the Federal Confidentiality of Alcohol and Drug Abuse Patient Records regulations: The Federal rules restrict any use of the information to criminally investigate or prosecute any alcohol or drug abuse patient.[facility] CenterIn the event this information is protected by the Federal Confidentiality of Alcohol and Drug Abuse Patient Records regulations: The Federal rules restrict any use of the information to criminally investigate or prosecute any alcohol or drug abuse patient.[facility] CenterIn the event this information is protected by the Federal Confidentiality of Alcohol and Drug Abuse Patient Records regulations: The Federal rules restrict any use of the information to criminally investigate or prosecute any alcohol or drug abuse patient.[facility] CenterIn the event this information is protected by the Federal Confidentiality of Alcohol and Drug Abuse Patient Records regulations: The Federal rules restrict any use of the information to criminally investigate or prosecute any alcohol or drug abuse patient.[facility] CenterIn the event this information is protected by the Federal Confidentiality of Alcohol and Drug Abuse Patient Records regulations: The Federal rules restrict any use of the information to criminally investigate or prosecute any alcohol or drug abuse patient.[facility] CenterIn the event this information is protected by the Federal Confidentiality of Alcohol and Drug Abuse Patient Records regulations: The Federal rules restrict any use of the information to criminally investigate or prosecute any alcohol or drug abuse patient.[facility] CenterIn the event this information is protected by the Federal Confidentiality of Alcohol and Drug Abuse Patient Records regulations: The Federal rules restrict any use of the information to criminally investigate or prosecute any alcohol or drug abuse patient.[facility] CenterIn the event this information is protected by the Federal Confidentiality of Alcohol and Drug Abuse Patient Records regulations: The Federal rules restrict any use of the information to criminally investigate or prosecute any alcohol or drug abuse patient.[facility] CenterIn the event this information is protected by the Federal Confidentiality of Alcohol and Drug Abuse Patient Records regulations: The Federal rules restrict any use of the information to criminally investigate or prosecute any alcohol or drug abuse patient.[facility] CenterIn the event this information is protected by the Federal Confidentiality of Alcohol and Drug Abuse Patient Records regulations: The Federal rules restrict any use of the information to criminally investigate or prosecute any alcohol or drug abuse patient.[facility] CenterIn the event this information is protected by the Federal Confidentiality of Alcohol and Drug Abuse Patient Records regulations: The Federal rules restrict any use of the information to criminally investigate or prosecute any alcohol or drug abuse patient.[facility] CenterIn the event this information is protected by the Federal Confidentiality of Alcohol and Drug Abuse Patient Records regulations: The Federal rules restrict any use of the information to criminally investigate or prosecute any alcohol or drug abuse patient.[facility] CenterIn the event this information is protected by the Federal Confidentiality of Alcohol and Drug Abuse Patient Records regulations: The Federal rules restrict any use of the information to criminally investigate or prosecute any alcohol or drug abuse patient.[facility] CenterIn the event this information is protected by the Federal Confidentiality of Alcohol and Drug Abuse Patient Records regulations: The Federal rules restrict any use of the information to criminally investigate or prosecute any alcohol or drug abuse patient.[facility] CenterIn the event this information is protected by the Federal Confidentiality of Alcohol and Drug Abuse Patient Records regulations: The Federal rules restrict any use of the information to criminally investigate or prosecute any alcohol or drug abuse patient.[facility] CenterIn the event this information is protected by the Federal Confidentiality of Alcohol and Drug Abuse Patient Records regulations: The Federal rules restrict any use of the information to criminally investigate or prosecute any alcohol or drug abuse patient.[facility] CenterIn the event this information is protected by the Federal Confidentiality of Alcohol and Drug Abuse Patient Records regulations: The Federal rules restrict any use of the information to criminally investigate or prosecute any alcohol or drug abuse patient.[facility] CenterIn the event this information is protected by the Federal Confidentiality of Alcohol and Drug Abuse Patient Records regulations: The Federal rules restrict any use of the information to criminally investigate or prosecute any alcohol or drug abuse patient.[facility] CenterIn the event this information is protected by the Federal Confidentiality of Alcohol and Drug Abuse Patient Records regulations: The Federal rules restrict any use of the information to criminally investigate or prosecute any alcohol or drug abuse patient.[facility] CenterIn the event this information is protected by the Federal Confidentiality of Alcohol and Drug Abuse Patient Records regulations: The Federal rules restrict any use of the information to criminally investigate or prosecute any alcohol or drug abuse patient.[facility] CenterIn the event this information is protected by the Federal Confidentiality of Alcohol and Drug Abuse Patient Records regulations: The Federal rules restrict any use of the information to criminally investigate or prosecute any alcohol or drug abuse patient.[facility] CenterIn the event this information is protected by the Federal Confidentiality of Alcohol and Drug Abuse Patient Records regulations: The Federal rules restrict any use of the information to criminally investigate or prosecute any alcohol or drug abuse patient.[facility] CenterIn the event this information is protected by the Federal Confidentiality of Alcohol and Drug Abuse Patient Records regulations: The Federal rules restrict any use of the information to criminally investigate or prosecute any alcohol or drug abuse patient.[facility] CenterIn the event this information is protected by the Federal Confidentiality of Alcohol and Drug Abuse Patient Records regulations: The Federal rules restrict any use of the information to criminally investigate or prosecute any alcohol or drug abuse patient.[facility] CenterIn the event this information is protected by the Federal Confidentiality of Alcohol and Drug Abuse Patient Records regulations: The Federal rules restrict any use of the information to criminally investigate or prosecute any alcohol or drug abuse patient.[facility] CenterIn the event this information is protected by the Federal Confidentiality of Alcohol and Drug Abuse Patient Records regulations: The Federal rules restrict any use of the information to criminally investigate or prosecute any alcohol or drug abuse patient.[facility] CenterIn the event this information is protected by the Federal Confidentiality of Alcohol and Drug Abuse Patient Records regulations: The Federal rules restrict any use of the information to criminally investigate or prosecute any alcohol or drug abuse patient.[facility] CenterIn the event this information is protected by the Federal Confidentiality of Alcohol and Drug Abuse Patient Records regulations: The Federal rules restrict any use of the information to criminally investigate or prosecute any alcohol or drug abuse patient.[facility] CenterIn the event this information is protected by the Federal Confidentiality of Alcohol and Drug Abuse Patient Records regulations: The Federal rules restrict any use of the information to criminally investigate or prosecute any alcohol or drug abuse patient.[facility] CenterIn the event this information is protected by the Federal Confidentiality of Alcohol and Drug Abuse Patient Records regulations: The Federal rules restrict any use of the information to criminally investigate or prosecute any alcohol or drug abuse patient.[facility] CenterIn the event this information is protected by the Federal Confidentiality of Alcohol and Drug Abuse Patient Records regulations: The Federal rules restrict any use of the information to criminally investigate or prosecute any alcohol or drug abuse patient.[facility] CenterIn the event this information is protected by the Federal Confidentiality of Alcohol and Drug Abuse Patient Records regulations: The Federal rules restrict any use of the information to criminally investigate or prosecute any alcohol or drug abuse patient.[facility] CenterIn the event this information is protected by the Federal Confidentiality of Alcohol and Drug Abuse Patient Records regulations: The Federal rules restrict any use of the information to criminally investigate or prosecute any alcohol or drug abuse patient.[facility] CenterIn the event this information is protected by the Federal Confidentiality of Alcohol and Drug Abuse Patient Records regulations: The Federal rules restrict any use of the information to criminally investigate or prosecute any alcohol or drug abuse patient.[facility] CenterIn the event this information is protected by the Federal Confidentiality of Alcohol and Drug Abuse Patient Records regulations: The Federal rules restrict any use of the information to criminally investigate or prosecute any alcohol or drug abuse patient.[facility] CenterIn the event this information is protected by the Federal Confidentiality of Alcohol and Drug Abuse Patient Records regulations: The Federal rules restrict any use of the information to criminally investigate or prosecute any alcohol or drug abuse patient.[facility] CenterIn the event this information is protected by the Federal Confidentiality of Alcohol and Drug Abuse Patient Records regulations: The Federal rules restrict any use of the information to criminally investigate or prosecute any alcohol or drug abuse patient.[facility] CenterIn the event this information is protected by the Federal Confidentiality of Alcohol and Drug Abuse Patient Records regulations: The Federal rules restrict any use of the information to criminally investigate or prosecute any alcohol or drug abuse patient.[facility] CenterIn the event this information is protected by the Federal Confidentiality of Alcohol and Drug Abuse Patient Records regulations: The Federal rules restrict any use of the information to criminally investigate or prosecute any alcohol or drug abuse patient.[facility] the event this information is protected by the Federal Confidentiality of Alcohol and Drug Abuse Patient Records regulations: The Federal rules restrict any use of the information to criminally investigate or prosecute any alcohol or drug abuse patient.[facility] CenterIn the event this information is protected by the Federal Confidentiality of Alcohol and Drug Abuse Patient Records regulations: The Federal rules restrict any use of the information to criminally investigate or prosecute any alcohol or drug abuse patient.[facility] CenterIn the event this information is protected by the Federal Confidentiality of Alcohol and Drug Abuse Patient Records regulations: The Federal rules restrict any use of the information to criminally investigate or prosecute any alcohol or drug abuse patient.[facility]In the event this information is protected by the Federal Confidentiality of Alcohol and Drug Abuse Patient Records regulations: The Federal rules restrict any use of the information to criminally investigate or prosecute any alcohol or drug abuse patient.[facility] CenterIn the event this information is protected by the Federal Confidentiality of Alcohol and Drug Abuse Patient Records regulations: The Federal rules restrict any use of the information to criminally investigate or prosecute any alcohol or drug abuse patient.[facility] CenterIn the event this information is protected by the Federal Confidentiality of Alcohol and Drug Abuse Patient Records regulations: The Federal rules restrict any use of the information to criminally investigate or prosecute any alcohol or drug abuse patient.[facility] CenterIn the event this information is protected by the Federal Confidentiality of Alcohol and Drug Abuse Patient Records regulations: The Federal rules restrict any use of the information to criminally investigate or prosecute any alcohol or drug abuse patient.[facility] CenterIn the event this information is protected by the Federal Confidentiality of Alcohol and Drug Abuse Patient Records regulations: The Federal rules restrict any use of the information to criminally investigate or prosecute any alcohol or drug abuse patient.[facility] CenterIn the event this information is protected by the Federal Confidentiality of Alcohol and Drug Abuse Patient Records regulations: The Federal rules restrict any use of the information to criminally investigate or prosecute any alcohol or drug abuse patient.[facility] CenterIn the event this information is protected by the Federal Confidentiality of Alcohol and Drug Abuse Patient Records regulations: The Federal rules restrict any use of the information to criminally investigate or prosecute any alcohol or drug abuse patient.[facility] CenterIn the event this information is protected by the Federal Confidentiality of Alcohol and Drug Abuse Patient Records regulations: The Federal rules restrict any use of the information to criminally investigate or prosecute any alcohol or drug abuse patient.[facility] CenterIn the event this information is protected by the Federal Confidentiality of Alcohol and Drug Abuse Patient Records regulations: The Federal rules restrict any use of the information to criminally investigate or prosecute any alcohol or drug abuse patient.[facility] CenterIn the event this information is protected by the Federal Confidentiality of Alcohol and Drug Abuse Patient Records regulations: The Federal rules restrict any use of the information to criminally investigate or prosecute any alcohol or drug abuse patient.[facility] CenterIn the event this information is protected by the Federal Confidentiality of Alcohol and Drug Abuse Patient Records regulations: The Federal rules restrict any use of the information to criminally investigate or prosecute any alcohol or drug abuse patient.[facility] CenterIn the event this information is protected by the Federal Confidentiality of Alcohol and Drug Abuse Patient Records regulations: The Federal rules restrict any use of the information to criminally investigate or prosecute any alcohol or drug abuse patient.[facility] CenterIn the event this information is protected by the Federal Confidentiality of Alcohol and Drug Abuse Patient Records regulations: The Federal rules restrict any use of the information to criminally investigate or prosecute any alcohol or drug abuse patient.[facility] CenterIn the event this information is protected by the Federal Confidentiality of Alcohol and Drug Abuse Patient Records regulations: The Federal rules restrict any use of the information to criminally investigate or prosecute any alcohol or drug abuse patient.[facility] CenterIn the event this information is protected by the Federal Confidentiality of Alcohol and Drug Abuse Patient Records regulations: The Federal rules restrict any use of the information to criminally investigate or prosecute any alcohol or drug abuse patient.[facility] CenterIn the event this information is protected by the Federal Confidentiality of Alcohol and Drug Abuse Patient Records regulations: The Federal rules restrict any use of the information to criminally investigate or prosecute any alcohol or drug abuse patient.[facility] CenterIn the event this information is protected by the Federal Confidentiality of Alcohol and Drug Abuse Patient Records regulations: The Federal rules restrict any use of the information to criminally investigate or prosecute any alcohol or drug abuse patient.[facility] CenterIn the event this information is protected by the Federal Confidentiality of Alcohol and Drug Abuse Patient Records regulations: The Federal rules restrict any use of the information to criminally investigate or prosecute any alcohol or drug abuse patient.[facility] CenterIn the event this information is protected by the Federal Confidentiality of Alcohol and Drug Abuse Patient Records regulations: The Federal rules restrict any use of the information to criminally investigate or prosecute any alcohol or drug abuse patient.[facility] CenterIn the event this information is protected by the Federal Confidentiality of Alcohol and Drug Abuse Patient Records regulations: The Federal rules restrict any use of the information to criminally investigate or prosecute any alcohol or drug abuse patient.[facility] CenterIn the event this information is protected by the Federal Confidentiality of Alcohol and Drug Abuse Patient Records regulations: The Federal rules restrict any use of the information to criminally investigate or prosecute any alcohol or drug abuse patient.[facility] CenterIn the event this information is protected by the Federal Confidentiality of Alcohol and Drug Abuse Patient Records regulations: The Federal rules restrict any use of the information to criminally investigate or prosecute any alcohol or drug abuse patient.[facility] CenterIn the event this information is protected by the Federal Confidentiality of Alcohol and Drug Abuse Patient Records regulations: The Federal rules restrict any use of the information to criminally investigate or prosecute any alcohol or drug abuse patient.[facility] CenterIn the event this information is protected by the Federal Confidentiality of Alcohol and Drug Abuse Patient Records regulations: The Federal rules restrict any use of the information to criminally investigate or prosecute any alcohol or drug abuse patient.[facility] CenterIn the event this information is protected by the Federal Confidentiality of Alcohol and Drug Abuse Patient Records regulations: The Federal rules restrict any use of the information to criminally investigate or prosecute any alcohol or drug abuse patient.[facility] CenterIn the event this information is protected by the Federal Confidentiality of Alcohol and Drug Abuse Patient Records regulations: The Federal rules restrict any use of the information to criminally investigate or prosecute any alcohol or drug abuse patient.[facility] CenterIn the event this information is protected by the Federal Confidentiality of Alcohol and Drug Abuse Patient Records regulations: The Federal rules restrict any use of the information to criminally investigate or prosecute any alcohol or drug abuse patient.[facility] CenterIn the event this information is protected by the Federal Confidentiality of Alcohol and Drug Abuse Patient Records regulations: The Federal rules restrict any use of the information to criminally investigate or prosecute any alcohol or drug abuse patient.[facility] CenterIn the event this information is protected by the Federal Confidentiality of Alcohol and Drug Abuse Patient Records regulations: The Federal rules restrict any use of the information to criminally investigate or prosecute any alcohol or drug abuse patient.[facility] CenterIn the event this information is protected by the Federal Confidentiality of Alcohol and Drug Abuse Patient Records regulations: The Federal rules restrict any use of the information to criminally investigate or prosecute any alcohol or drug abuse patient.[facility] CenterIn the event this information is protected by the Federal Confidentiality of Alcohol and Drug Abuse Patient Records regulations: The Federal rules restrict any use of the information to criminally investigate or prosecute any alcohol or drug abuse patient.[facility] CenterIn the event this information is protected by the Federal Confidentiality of Alcohol and Drug Abuse Patient Records regulations: The Federal rules restrict any use of the information to criminally investigate or prosecute any alcohol or drug abuse patient.[facility] CenterIn the event this information is protected by the Federal Confidentiality of Alcohol and Drug Abuse Patient Records regulations: The Federal rules restrict any use of the information to criminally investigate or prosecute any alcohol or drug abuse patient.[facility] CenterIn the event this information is protected by the Federal Confidentiality of Alcohol and Drug Abuse Patient Records regulations: The Federal rules restrict any use of the information to criminally investigate or prosecute any alcohol or drug abuse patient.[facility] CenterIn the event this information is protected by the Federal Confidentiality of Alcohol and Drug Abuse Patient Records regulations: The Federal rules restrict any use of the information to criminally investigate or prosecute any alcohol or drug abuse patient.[facility] CenterIn the event this information is protected by the Federal Confidentiality of Alcohol and Drug Abuse Patient Records regulations: The Federal rules restrict any use of the information to criminally investigate or prosecute any alcohol or drug abuse patient.[facility] CenterIn the event this information is protected by the Federal Confidentiality of Alcohol and Drug Abuse Patient Records regulations: The Federal rules restrict any use of the information to criminally investigate or prosecute any alcohol or drug abuse patient.[facility] CenterIn the event this information is protected by the Federal Confidentiality of Alcohol and Drug Abuse Patient Records regulations: The Federal rules restrict any use of the information to criminally investigate or prosecute any alcohol or drug abuse patient.[facility] CenterIn the event this information is protected by the Federal Confidentiality of Alcohol and Drug Abuse Patient Records regulations: The Federal rules restrict any use of the information to criminally investigate or prosecute any alcohol or drug abuse patient.[facility] CenterIn the event this information is protected by the Federal Confidentiality of Alcohol and Drug Abuse Patient Records regulations: The Federal rules restrict any use of the information to criminally investigate or prosecute any alcohol or drug abuse patient.[facility] CenterIn the event this information is protected by the Federal Confidentiality of Alcohol and Drug Abuse Patient Records regulations: The Federal rules restrict any use of the information to criminally investigate or prosecute any alcohol or drug abuse patient.[facility] CenterIn the event this information is protected by the Federal Confidentiality of Alcohol and Drug Abuse Patient Records regulations: The Federal rules restrict any use of the information to criminally investigate or prosecute any alcohol or drug abuse patient.[facility] CenterIn the event this information is protected by the Federal Confidentiality of Alcohol and Drug Abuse Patient Records regulations: The Federal rules restrict any use of the information to criminally investigate or prosecute any alcohol or drug abuse patient.[facility] CenterIn the event this information is protected by the Federal Confidentiality of Alcohol and Drug Abuse Patient Records regulations: The Federal rules restrict any use of the information to criminally investigate or prosecute any alcohol or drug abuse patient.[facility] CenterIn the event this information is protected by the Federal Confidentiality of Alcohol and Drug Abuse Patient Records regulations: The Federal rules restrict any use of the information to criminally investigate or prosecute any alcohol or drug abuse patient.[facility] CenterIn the event this information is protected by the Federal Confidentiality of Alcohol and Drug Abuse Patient Records regulations: The Federal rules restrict any use of the information to criminally investigate or prosecute any alcohol or drug abuse patient.[facility] CenterIn the event this information is protected by the Federal Confidentiality of Alcohol and Drug Abuse Patient Records regulations: The Federal rules restrict any use of the information to criminally investigate or prosecute any alcohol or drug abuse patient.[facility] the event this information is protected by the Federal Confidentiality of Alcohol and Drug Abuse Patient Records regulations: The Federal rules restrict any use of the information to criminally investigate or prosecute any alcohol or drug abuse patient.[facility] CenterIn the event this information is protected by the Federal Confidentiality of Alcohol and Drug Abuse Patient Records regulations: The Federal rules restrict any use of the information to criminally investigate or prosecute any alcohol or drug abuse patient.[facility] CenterIn the event this information is protected by the Federal Confidentiality of Alcohol and Drug Abuse Patient Records regulations: The Federal rules restrict any use of the information to criminally investigate or prosecute any alcohol or drug abuse patient.[facility]In the event this information is protected by the Federal Confidentiality of Alcohol and Drug Abuse Patient Records regulations: The Federal rules restrict any use of the information to criminally investigate or prosecute any alcohol or drug abuse patient.[facility] CenterIn the event this information is protected by the Federal Confidentiality of Alcohol and Drug Abuse Patient Records regulations: The Federal rules restrict any use of the information to criminally investigate or prosecute any alcohol or drug abuse patient.[facility] CenterIn the event this information is protected by the Federal Confidentiality of Alcohol and Drug Abuse Patient Records regulations: The Federal rules restrict any use of the information to criminally investigate or prosecute any alcohol or drug abuse patient.[facility] CenterIn the event this information is protected by the Federal Confidentiality of Alcohol and Drug Abuse Patient Records regulations: The Federal rules restrict any use of the information to criminally investigate or prosecute any alcohol or drug abuse patient.[facility] CenterIn the event this information is protected by the Federal Confidentiality of Alcohol and Drug Abuse Patient Records regulations: The Federal rules restrict any use of the information to criminally investigate or prosecute any alcohol or drug abuse patient.[facility] CenterIn the event this information is protected by the Federal Confidentiality of Alcohol and Drug Abuse Patient Records regulations: The Federal rules restrict any use of the information to criminally investigate or prosecute any alcohol or drug abuse patient.[facility] CenterIn the event this information is protected by the Federal Confidentiality of Alcohol and Drug Abuse Patient Records regulations: The Federal rules restrict any use of the information to criminally investigate or prosecute any alcohol or drug abuse patient.[facility] CenterIn the event this information is protected by the Federal Confidentiality of Alcohol and Drug Abuse Patient Records regulations: The Federal rules restrict any use of the information to criminally investigate or prosecute any alcohol or drug abuse patient.[facility] CenterIn the event this information is protected by the Federal Confidentiality of Alcohol and Drug Abuse Patient Records regulations: The Federal rules restrict any use of the information to criminally investigate or prosecute any alcohol or drug abuse patient.[facility] CenterIn the event this information is protected by the Federal Confidentiality of Alcohol and Drug Abuse Patient Records regulations: The Federal rules restrict any use of the information to criminally investigate or prosecute any alcohol or drug abuse patient.[facility] CenterIn the event this information is protected by the Federal Confidentiality of Alcohol and Drug Abuse Patient Records regulations: The Federal rules restrict any use of the information to criminally investigate or prosecute any alcohol or drug abuse patient.[facility] CenterIn the event this information is protected by the Federal Confidentiality of Alcohol and Drug Abuse Patient Records regulations: The Federal rules restrict any use of the information to criminally investigate or prosecute any alcohol or drug abuse patient.[facility] CenterIn the event this information is protected by the Federal Confidentiality of Alcohol and Drug Abuse Patient Records regulations: The Federal rules restrict any use of the information to criminally investigate or prosecute any alcohol or drug abuse patient.[facility] CenterIn the event this information is protected by the Federal Confidentiality of Alcohol and Drug Abuse Patient Records regulations: The Federal rules restrict any use of the information to criminally investigate or prosecute any alcohol or drug abuse patient.[facility] CenterIn the event this information is protected by the Federal Confidentiality of Alcohol and Drug Abuse Patient Records regulations: The Federal rules restrict any use of the information to criminally investigate or prosecute any alcohol or drug abuse patient.[facility] CenterIn the event this information is protected by the Federal Confidentiality of Alcohol and Drug Abuse Patient Records regulations: The Federal rules restrict any use of the information to criminally investigate or prosecute any alcohol or drug abuse patient.[facility] CenterIn the event this information is protected by the Federal Confidentiality of Alcohol and Drug Abuse Patient Records regulations: The Federal rules restrict any use of the information to criminally investigate or prosecute any alcohol or drug abuse patient.[facility] CenterIn the event this information is protected by the Federal Confidentiality of Alcohol and Drug Abuse Patient Records regulations: The Federal rules restrict any use of the information to criminally investigate or prosecute any alcohol or drug abuse patient.[facility] CenterIn the event this information is protected by the Federal Confidentiality of Alcohol and Drug Abuse Patient Records regulations: The Federal rules restrict any use of the information to criminally investigate or prosecute any alcohol or drug abuse patient.[facility] Reason for Visit (unrecogniz ed section and content) Reason Comments Low Back Pain Specialty Diagnoses / Procedures Referred By Contac t Referred To Contact Chiropractor / PAIN MANAGEMENT Diagnoses Low back pain NEW PATIENT *acu/manip* Procedures ACUPUNCTURE / NDLES W/O ELEC STIMJ INIT 15 MIN NEW PAIN OMT/CHIROPRACTOR Zi Stanton DO [address] [facility] [address] [place] [address] Phone: tel: fax: Willam Mchugh DC [address] [place] [address] Phone: tel: fax: Referral ID Status Reason Start Date Expiration Date Visits Re quested Visits Authorized [id number] Closed 05/26/2024 05/25/2025 30 30 Reason Comments Physical Therapy Specialty Diagnoses / Procedures Referred By Contac t Referred To Contact PHYSICAL THERAPY Diagnoses Lumbar radiculopathy Procedures PT REHAB FOLLOW UP ORDER THERAPEUTIC EXERCISES RE, EA 15 MIN. Pérez Ling, PT [address] [place] [address] [facility] [address] [place] [address] Referral ID Status Reason Start Date Expiration Date Visits Requested Visits Authorized [id number] Authorized PCP Requested Referral Auto-Generate d Referral 06/15/2024 09/13/2024 10 10 Reason Comments PT Eval Specialty Diagnoses / Procedures Referred By Contac t Referred To Contact PHYSICAL THERAPY Diagnoses Lumbar radiculopathy Procedures CONSULT TO PHYSICAL THERAPY PHYSICAL THERAPY EVALUATION HIGH COMPLEX 45 MINS Stephen Rizo P, DO [address] [place] [address] Pt [facility] [address] [place] [address] Referral ID Status Reason Start Date Expiration Date V isits Requested Visits Authorized [id number] Closed Auto-Generate d Referral 05/26/2024 05/25/2025 1 1 Reason Comments PT Discharge Specialty Diagnoses / Procedures Referred By Contac t Referred To Contact [facility] Diagnoses Generalized osteoarthrosis Fibromyalgia Recurrent falls while walking Procedures PT REHAB FOLLOW UP ORDER PT REHAB FOLLOW UP ORDER PT REHAB FOLLOW UP ORDER THERAPEUTIC EXERCISES RE, EA 15 MIN. Sagar Calero, [facility] [address] [place] [address] Referral ID Status Reason Start Date Expiration Date Visits Requested Visits Authorized [id number] Authorized PCP Requested Referral Auto-Generate d Referral 08/06/2023 11/24/2023 8 8 Reason Comments Refill Request Reason Comments Diarrhea 3 months UTI Blood in urine 4 day s ago, one time only Foot Pain (Midfoot) Possible hammer toe and fungus on right foot Reason Comments Patient Update Reason Comments Results Reason Comments Holter Download Reason Comments Results Reason Comments Phlebotomy Reason Comments Results Reason Comments Medication Authorization hydroxyzine Reason Comments New Patient Referred by Dr. Naila marshall for palpitations Reason Onset Date Comments Refill Request 12/24/2022 Reason Comments Radiology US Specialty Diagnoses / Procedures Referred By Vipin t Referred To Contact US IMAGING Diagnoses Elevated liver enzymes Procedures US ABD RIGHT UPPER QUADRANT US ABDOMINAL REAL TIME W/IMAGE LIMITED Estefany Preciado MD [address] [place] [id number] [place] [address] Referral ID Status Reason Start Date Expiration Date V isits Requested Visits Authorized [id number] Closed Auto-Generate d Referral 08/30/2022 09/29/2023 1 1 Reason Onset Date Comments Refill Request 07/03/2023 Reason Comments New Patient Self ref for Fibromy algia, Osteoarthritis Specialty Diagnoses / Procedures Referred By Vipin t Referred To Contact MR IMAGING Diagnoses Leg weakness, bilateral Acute midline low back pain without sciatica Spinal stenosis of lumbar region with neurogenic claudication Procedures MRI LUMBAR SPINE WO IVCON MRI SPINAL CANAL LUMBAR W/O CONTRAST MATERIAL Hortencia Calhounland Jarad, [address] [place] [address] [place] [address] Referral ID Status Reason Start Date Expiration Date Visits Requested Visits Authorized [id number] Waiting for Online Response Auto-Genera carrol Referral Patient Cleared - Admin/Chair man/Directo r advise to proceed or did not respond 07/21/2023 08/19/2024 1 1 Reason Comments Follow Up Pain all over Lab & Test Results General Weakness Dizziness Reason Comments Consult Consult to spine [facility], spondylosis and allied disorders confirm [id number] Reason Comments Consult Consult to spine [facility], spinal stenosis of lumbar region, confirm [id number] Reason Comments New Specialty Diagnoses / Procedures Referred By Contac t Referred To Contact [facility] Diagnoses Spinal stenosis of lumbar region with neurogenic claudication Procedures CONSULT TO [facility] [place], DO [address] [place] [address] Referral ID Status Reason Start Date Expiration Date Visits Requested Visits Authorized [id number] Ref Not Required PCP Requested Referral 07/31/2023 07/30/2024 1 1 Specialty Diagnoses / Procedures Referred By Contac t Referred To Contact [facility] Diagnoses Generalized osteoarthrosis Fibromyalgia Recurrent falls while walking Procedures CONSULT TO PHYSICAL THERAPY PHYSICAL THERAPY EVALUATION HIGH COMPLEX 45 MINS Rito Adam MD [address] [place] [address] [facility] [address] [place] [address] Referral ID Status Reason Start Date Expiration Date V isits Requested Visits Authorized [id number] Closed Auto-Generate d Referral 05/26/2023 05/25/2024 1 1 Reason Comments Refill Request duloxetine Reason Comments Director Medical - Other Reason Onset Date Comments Refill Request 10/13/2023 Reason Comments Established Patient Reason Onset Date Comments Transition Of Care 11/24/2023 AG D/C 4 Reason Comments Appointment Reason Onset Date Comments Refill Request 12/12/2023 Reason Comments Transition Of Care Surgery - spinal fus ion L4 L5Dr. Phoenix Bent this afternoon and now in 01/02 pain Reason Comments Established Patient Reason Comments Post Op Reason Comments Established Patient Reason Comments Wellness Yearly. Headache Sharp pain. Intermit tent. Left side. X 1 week Reason Comments Lymphocytic colitis No concerns Specialty Diagnoses / Procedures Referred By Contac t Referred To Contact US IMAGING Diagnoses Elevated LFTs Procedures US ABD RIGHT UPPER QUADRANT US ABDOMINAL REAL TIME W/IMAGE LIMITED Portia Calhoun, DO [address] [place] [address] [facility] [address] Referral ID Status Reason Start Date Expiration Date V isits Requested Visits Authorized [id number] Closed Auto-Generate d Referral 06/21/2024 07/21/2025 1 1 Reason Comments Trigeminal Neuralgia Started taking Tegr etol - patient states this is helping Results Lab results Reason Comments Consult Consult to Gastroent erology Abnormal liver enzymes Confirmation number: [id number] Reason Comments Results Lab results Reason Comments Refill Request Reason Comments Established Patient Reason Comments Consult Consult to Gastroent erology Alkaline phosphatase elevation Confirmation number: [id number] Reason Onset Date Comments Results 08/13/2024 Reason Comments Fast Track Reason Onset Date Comments Consult 07/13/[address] d for pt D/t abnormal labs Reason Comments Procedure tfesi Back Pain Lower - bilateral - left is worse Specialty Diagnoses / Procedures Referred By Vipin garcia Referred To Contact PAIN MANAGEMENT Diagnoses Radiculopathy, lumbar region Procedures NJX AA&/STRD TFRML EPI LUMBAR/SACRAL 1 LEVEL Eben Jonas MD [email or web address] [address] Phone: tel: fax: [facility] [email or web address] [facility] [address] [place] [address] Phone: tel: fax: Referral ID Status Reason Start Date Expiration Date Visits Re quested Visits Authorized [id number] Closed 09/07/2024 12/06/2024 1 1 Reason Comments Medication Problem Reason Comments New Patient Evaluation Low back Reason Comments Insurance Authorization [employer] 2024 Specialty Diagnoses / Procedures Referred By Vipin garcia Referred To Contact Diagnoses Impairment of balance Post laminectomy syndrome Procedures CONSULT TO CHIROPRACTOR OFFICE/OUTPATIENT NEW LOW MDM 30 MINUTES CHIROPRAC MANIP,SPINAL,5 [employer] Zi Stanton DO [address] [facility] [address] [place] [address] Phone: tel: fax: [place] [address] Referral ID Status Reason Start Date Expiration Date V isits Requested Visits Authorized [id number] Closed PCP Requested Referral 05/26/2024 05/25/2025 1 1 Reason Comments Back Pain Hip Pain Leg Pain Pain to lower back , right hip , radiating down right leg, bialt. knees Specialty Diagnoses / Procedures Referred By Vipin garcia Referred To Contact Pain Management / PAIN MANAGEMENT Diagnoses Sacroiliitis, not elsewhere classified Bilateral SIJ injection Procedures INJECT SI JOINT ARTHRGRPHY&/ANES/STERO ID W/BETTE PROCEDURE 20 Zi Stanton DO [address] [facility] [facility] [address] [place] [address] Phone: tel: fax: Zi Stanton DO [address] [address] [address] [place] [address] Phone: tel: fax: Referral ID Status Reason Start Date Expiration Date Visits Re quested Visits Authorized [id number] Closed 01/06/2025 04/06/2025 1 1 Reason Comments Procedure Follow Up RACHEL SI JOINT INJ Reason Comments Medical Clearance Care Teams (unrecognized sec tion and content) Sprinkler Fitter Helper Relationship Specialty Start Date End Date Estefany Preciado MD [address] [place] [address] PCP - General Family Practice 04/23/17 Sprinkler Fitter Helper Relationship Specialty Start Date End Date Estefany Preciado MD [address] [place] [address] PCP - General Family Medicine 04/23/17 Franko Wiley DO [address] [place] [address] Primary Staff Physician Family Medicine 01/10/22 Roderick Hidalgo, [address] [place] [address] Primary Staff Physician Family Medicine 01/10/22 Dorita Cabrera DO [address] [place] [address] Primary Staff Physician Family Medicine 01/10/22 Chay Preciado MD [address] [place] [address] Primary Staff Physician Family Medicine 01/10/22 Estefany Perciado MD [address] [place] [address] Primary Staff Physician Family Medicine 01/10/22 Gagan Goodrich MD [address] [place] [address] Primary Staff Physician Family Medicine 01/10/22 Eben Duncan, DO [address] [place] [address] Primary Staff Physician Family Medicine 01/10/22 [facility] [address] [place] [address] Primary Service Family Medicine 01/10/22 Sagar Stout, DO [address] [place] [address] Primary Staff Physician Family Medicine 01/10/22 Elis Jean Baptiste, RN Registered Nurse 01/10/22 Elis Jean Baptiste, RN Registered Nurse Family Medicine 01/21/22 Roderick Hidalgo, DO [address] [place] [address] Family Medicine 01/21/22 [facility] [address] [facility] [place] [address] Primary Staff Physician Family Medicine 01/21/22 Sprinkler Fitter Helper Relationship Specialty Start Date End Date Estefany Preciado MD [address] [place] [address] PCP - General Family Medicine 04/23/17 Franko Wiley, DO [address] [place] [address] Primary Staff Physician Family Medicine 01/10/22 Roderick Hidalgo, DO [address] [place] [address] Primary Staff Physician Family Medicine 01/10/22 Dorita Cabrera, DO [address] [place] [address] Primary Staff Physician Family Medicine 01/10/22 Chay Preciado MD [address] [facility] [place] [address] Primary Staff Physician Family Medicine 01/10/22 Estefany Preciado MD [address] [place] [address] Primary Staff Physician Family Medicine 01/10/22 Gagan Goodrich MD [address] [facility] [place] [address] Primary Staff Physician Family Medicine 01/10/22 Eben Duncan, DO [address] [place] [address] Primary Staff Physician Family Medicine 01/10/22 Ruth Vera [address] [place] [address] Primary Service Family Medicine 01/10/22 Sagar Stout, DO [address] [place] [address] Primary Staff Physician Family Medicine 01/10/22 Roderick Hidalgo, DO [address] [place] [address] Family Medicine 01/21/22 [facility] [place] [address] [place] [address] Primary Staff Physician Family Medicine 01/21/22 Elis Jean Baptiste, certified orthoptistAssistant Track Coach 04/23/22 Sprinkler Fitter Helper Relationship Specialty Start Date End Date Estefany Preciado MD [address] [place] [address] PCP - General Family Medicine 04/23/17 Franko Wiley, DO [address] [place] [address] Primary Staff Physician Family Medicine 01/10/22 Roderick Hidalgo, DO [address] [place] [address] Primary Staff Physician Family Medicine 01/10/22 Dorita Cabrera, DO [address] [place] [address] Primary Staff Physician Family Medicine 01/10/22 Chay Preciado MD [address] [place] [address] Primary Staff Physician Family Medicine 01/10/22 Estefany Preciado MD [address] [place] [address] Primary Staff Physician Family Medicine 01/10/22 Gagan Goodrich MD [address] [place] [address] Primary Staff Physician Family Medicine 01/10/22 Eben Duncan, DO [address] [place] [address] Primary Staff Physician Family Medicine 01/10/22 [facility] [address] [place] [address] Primary Service Family Medicine 01/10/22 Sagar Stout, DO [address] [place] [address] Primary Staff Physician Family Medicine 01/10/22 Roderick Hidalgo, DO [address] [place] [address] Family Medicine 01/21/22 [facility] [address] [place] [address] Primary Staff Physician Family Medicine 01/21/22 Elis Jean Baptsite, certified orthoptistAssistant Track Coach 04/23/22 Sprinkler Fitter Helper Relationship Specialty Start Date End Date Estefany Preciado MD [address] [place] [address] PCP - General Family Medicine 04/23/17 Franko Wiley, DO [address] [place] [address] Primary Staff Physician Family Medicine 01/10/22 Roderick Hidalgo, DO [address] [place] [address] Primary Staff Physician Family Medicine 01/10/22 Dorita Cabrera, DO [address] [place] [address] Primary Staff Physician Family Medicine 01/10/22 Chay Preciado MD [address] [place] [address] Primary Staff Physician Family Medicine 01/10/22 Estefany Preciado MD [address] [place] [address] Primary Staff Physician Family Medicine 01/10/22 Gagan Goodrich MD [address] [place] [address] Primary Staff Physician Family Medicine 01/10/22 Eben Duncan, DO [address] [place] [address] Primary Staff Physician Family Medicine 01/10/22 [facility] [address] [place] [address] Primary Service Family Medicine 01/10/22 Sagar Stout, DO [address] [place] [address] Primary Staff Physician Family Medicine 01/10/22 Roderick Hidalgo, DO [address] [place] [address] Family Medicine 01/21/22 [facility] [address] [place] [address] Primary Staff Physician Family Medicine 01/21/22 Elis Jean Baptiste, certified orthoptistAssistant Track Coach 04/23/22 Sprinkler Fitter Helper Relationship Specialty Start Date End Date Estefany Preciado MD [address] [place] [address] PCP - General Family Medicine 04/23/17 Franko Wiley, DO [address] [place] [address] Primary Staff Physician Family Medicine 01/10/22 Roderick Hidalgo, DO [address] [place] [address] Primary Staff Physician Family Medicine 01/10/22 Dorita Cabrera, DO [address] [place] [address] Primary Staff Physician Family Medicine 01/10/22 Chay Preciado MD [address] [place] [address] Primary Staff Physician Family Medicine 01/10/22 Estefany Preciado MD [address] [place] [address] Primary Staff Physician Family Medicine 01/10/22 Gagan Goodrich MD [address] [place] [address] Primary Staff Physician Family Medicine 01/10/22 Eben Duncan, DO [address] [place] [address] Primary Staff Physician Family Medicine 01/10/22 [facility] [address] [place] [address] Primary Service Family Medicine 01/10/22 Sagar Stout, DO [address] [place] [address] Primary Staff Physician Family Medicine 01/10/22 Roderick Hidalgo, DO [address] [place] [address] Family Medicine 01/21/22 [facility] [address] [place] [address] Primary Staff Physician Family Medicine 01/21/22 Elis Jean Baptiste, certified orthoptistAssistant Track Coach 04/23/22 Sprinkler Fitter Helper Relationship Specialty Start Date End Date Estefany Preciado MD [address] [place] [address] PCP - General Family Medicine 04/23/17 Franko Wiley, DO [address] [place] [address] Primary Staff Physician Family Medicine 01/10/22 Roderick Hidalgo, DO [address] [place] [address] Primary Staff Physician Family Medicine 01/10/22 Dorita Cabrera, DO [address] [place] [address] Primary Staff Physician Family Medicine 01/10/22 Chay Preciado MD [address] [place] [address] Primary Staff Physician Family Medicine 01/10/22 Estefany Preciado MD [address] [place] [address] Primary Staff Physician Family Medicine 01/10/22 Gagan Goodrich MD [address] [place] [address] Primary Staff Physician Family Medicine 01/10/22 Eben Duncan, DO [address] [place] [address] Primary Staff Physician Family Medicine 01/10/22 [facility] [address] [place] [address] Primary Service Family Medicine 01/10/22 Sagar Stout, DO [address] [place] [address] Primary Staff Physician Family Medicine 01/10/22 Roderick Hidalgo, DO [address] [place] [address] Family Medicine 01/21/22 [facility] [address] [place] [address] Primary Staff Physician Family Medicine 01/21/22 Elis Jean Baptiste, certified orthoptistAssistant Track Coach 04/23/22 Sprinkler Fitter Helper Relationship Specialty Start Date End Date Estefany Preciado MD [address] [place] [address] PCP - General Family Medicine 04/23/17 Franko Wiley, DO [address] [place] [address] Primary Staff Physician Family Medicine 01/10/22 Roderick Hidalgo, DO [address] [place] [address] Primary Staff Physician Family Medicine 01/10/22 Dorita Cabrera, DO [address] [facility] [place] [address] Primary Staff Physician Family Medicine 01/10/22 Chay Preciado MD [address] [facility] [address] Primary Staff Physician Family Medicine 01/10/22 Estefany Preciado MD [address] [place] [address] Primary Staff Physician Family Medicine 01/10/22 Gagan Goodrich MD [address] [facility] [address] Primary Staff Physician Family Medicine 01/10/22 Eben Duncan, [address] [place] [address] Primary Staff Physician Family Medicine 01/10/22 [facility] [address] [place] [address] Primary Service Family Medicine 01/10/22 Sagar Stout, DO [address] [place] [address] Primary Staff Physician Family Medicine 01/10/22 Roderick Hidalgo, DO [address] [place] [address] Family Medicine 01/21/22 [facility] [address] [place] [address] Primary Staff Physician Family Medicine 01/21/22 Elis Jean Baptiste, certified orthoptistAssistant Track Coach 04/23/22 Sprinkler Fitter Helper Relationship Specialty Start Date End Date Estefany Preciado MD [address] [place] [address] PCP - General Family Medicine 04/23/17 Franko Wiley DO [address] [place] [address] Primary Staff Physician Family Medicine 01/10/22 Roderick Hidalgo, DO [address] [place] [address] Primary Staff Physician Family Medicine 01/10/22 Dorita Cabrera DO [address] [place] [address] Primary Staff Physician Family Medicine 01/10/22 Chay Preciado MD [address] [place] [address] Primary Staff Physician Family Medicine 01/10/22 Estefany Preciado MD [address] [place] [address] Primary Staff Physician Family Medicine 01/10/22 Gagan Goodrich MD [address] [place] [address] Primary Staff Physician Family Medicine 01/10/22 Eben Duncan, DO [address] [place] [address] Primary Staff Physician Family Medicine 01/10/22 [facility] [address] [place] [address] Primary Service Family Medicine 01/10/22 Sagar Stout, DO [address] [place] [address] Primary Staff Physician Family Medicine 01/10/22 Roderick Hidalgo, DO [address] [place] [address] Family Medicine 01/21/22 [facility] [address] [place] [address] Primary Staff Physician Family Medicine 01/21/22 Elis Jean Baptiste, certified orthoptistAssistant Track Coach 04/23/22 Sprinkler Fitter Helper Relationship Specialty Start Date End Date Estefany Preciado MD [address] [place] [address] PCP - General Family Medicine 04/23/17 Farnko Wiley, DO [address] [place] [address] Primary Staff Physician Family Medicine 01/10/22 Roderick Hidalgo, DO [address] [place] [address] Primary Staff Physician Family Medicine 01/10/22 Dorita Cabrera, DO [address] [place] [address] Primary Staff Physician Family Medicine 01/10/22 Chay Preciado MD [address] [place] [address] Primary Staff Physician Family Medicine 01/10/22 Estefany Preciado MD [address] [place] [address] Primary Staff Physician Family Medicine 01/10/22 Gagan Goodrich MD [address] [place] [address] Primary Staff Physician Family Medicine 01/10/22 Eben Duncan DO [address] [place] [address] Primary Staff Physician Family Medicine 01/10/22 [facility] [address] [place] [address] Primary Service Family Medicine 01/10/22 Sagar Stout, DO [address] [place] [address] Primary Staff Physician Family Medicine 01/10/22 Roderick Hidalgo, DO [address] [place] [address] Family Medicine 01/21/22 [facility] [address] [place] [address] Primary Staff Physician Family Medicine 01/21/22 Elis Jean Baptiste, certified orthoptistAssistant Track Coach 04/23/22 Sprinkler Fitter Helper Relationship Specialty Start Date End Date Estefany Preciado MD [address] [place] [address] PCP - General Family Medicine 04/23/17 Franko Wiley, DO [address] [place] [address] Primary Staff Physician Family Medicine 01/10/22 Roderick Hidalgo, DO [address] [place] [address] Primary Staff Physician Family Medicine 01/10/22 Dorita Cabrera, DO [address] [place] [address] Primary Staff Physician Family Medicine 01/10/22 Chay Preciado MD [address] [place] [address] Primary Staff Physician Family Medicine 01/10/22 Estefany Preciado MD [address] [place] [address] Primary Staff Physician Family Medicine 01/10/22 Gagan Goodrich MD [address] [place] [address] Primary Staff Physician Family Medicine 01/10/22 Eben Duncan, DO [address] [place] [address] Primary Staff Physician Family Medicine 01/10/22 Ruth Vera [address] [place] [address] Primary Service Family Medicine 01/10/22 Sagar Stout, DO [address] [place] [address] Primary Staff Physician Family Medicine 01/10/22 Roderick Hidalgo, DO [address] [place] [address] Family Medicine 01/21/22 [facility] [address] [place] [address] Primary Staff Physician Family Medicine 01/21/22 Elis Jean Baptiste, certified orthoptistAssistant Track Coach 04/23/22 Sprinkler Fitter Helper Relationship Specialty Start Date End Date Estefany Preciado MD [address] [place] [address] PCP - General Family Medicine 04/23/17 Franko Wiley, DO [address] [place] [address] Primary Staff Physician Family Medicine 01/10/22 Roderick Hidalgo, DO [address] [place] [address] Primary Staff Physician Family Medicine 01/10/22 Dorita Cabrera, DO [address] [place] [address] Primary Staff Physician Family Medicine 01/10/22 Chay Preciado MD [address] [place] [address] Primary Staff Physician Family Medicine 01/10/22 Estefany Preciado MD [address] [place] [address] Primary Staff Physician Family Medicine 01/10/22 Gagan Goodrich MD [address] [place] [address] Primary Staff Physician Family Medicine 01/10/22 Eben Duncan, DO [address] [place] [address] Primary Staff Physician Family Medicine 01/10/22 [facility] [address] [place] [address] Primary Service Family Medicine 01/10/22 Sagar Stout, DO [address] [place] [address] Primary Staff Physician Family Medicine 01/10/22 Roderick Hdialgo, DO [address] [place] [address] Family Medicine 01/21/22 [facility] [address] [place] [address] Primary Staff Physician Family Medicine 01/21/22 Elis Jean Baptiste, certified orthoptistAssistant Track Coach 04/23/22 Sprinkler Fitter Helper Relationship Specialty Start Date End Date Estefany Preciado MD [address] [place] [address] PCP - General Family Medicine 04/23/17 Franko Wiley DO [address] [place] [address] Primary Staff Physician Family Medicine 01/10/22 Roderick Hidalgo DO [address] [place] [address] Primary Staff Physician Family Medicine 01/10/22 Dorita Cabrera DO [address] [place] [address] Primary Staff Physician Family Medicine 01/10/22 Chay Preciado MD [address] [place] [address] Primary Staff Physician Family Medicine 01/10/22 Estefany Preciado MD [address] [place] [address] Primary Staff Physician Family Medicine 01/10/22 Gagan Goodrich MD [address] [place] [address] Primary Staff Physician Family Medicine 01/10/22 Eben Duncan DO [address] [place] [address] Primary Staff Physician Family Medicine 01/10/22 [facility] [address] [place] [address] Primary Service Family Medicine 01/10/22 Sagar Stout DO [address] [place] [address] Primary Staff Physician Family Medicine 01/10/22 Roderick Hidalgo DO [address] [place] [address] Family Medicine 01/21/22 [facility] [address] [place] [address] Primary Staff Physician Family Medicine 01/21/22 Elis Jean Baptiste, certified orthoptistAssistant Track Coach 04/23/22 Sprinkler Fitter Helper Relationship Specialty Start Date End Date Estefany Preciado MD [address] [place] [address] PCP - General Family Medicine 04/23/17 Franko Wiley DO [address] [place] [address] Primary Staff Physician Family Medicine 01/10/22 Roderick Hidalgo DO [address] [place] [address] Primary Staff Physician Family Medicine 01/10/22 Dorita Cabrera DO [address] [place] [address] Primary Staff Physician Family Medicine 01/10/22 Chay Preciado MD [address] [place] [address] Primary Staff Physician Family Medicine 01/10/22 Estefany Preciado MD [address] [place] [address] Primary Staff Physician Family Medicine 01/10/22 Gagan Goodrich MD [address] [place] [address] Primary Staff Physician Family Medicine 01/10/22 Eben Duncan DO [address] [place] [address] Primary Staff Physician Family Medicine 01/10/22 [facility] [address] [place] [address] Primary Service Family Medicine 01/10/22 Sagar Stout DO [address] [place] [address] Primary Staff Physician Family Medicine 01/10/22 Roderick Hidalgo DO [address] [place] [address] Family Medicine 01/21/22 [facility] [address] [place] [address] Primary Staff Physician Family Medicine 01/21/22 Elis Jean Baptiste, certified orthoptistAssistant Track Coach 04/23/22 Sprinkler Fitter Helper Relationship Specialty Start Date End Date Estefany Preciado MD [address] [place] [address] PCP - General Family Medicine 04/23/17 Franko Wiley DO [address] [place] [address] Primary Staff Physician Family Medicine 01/10/22 Roderick Hidalgo DO [address] [place] [address] Primary Staff Physician Family Medicine 01/10/22 Dorita Cabrera DO [address] [place], [place] [address] Primary Staff Physician Family Medicine 01/10/22 Chay Preciado MD [address] [place] [address] Primary Staff Physician Family Medicine 01/10/22 Estefany Preciado MD [address] [place] [address] Primary Staff Physician Family Medicine 01/10/22 Gagan Goodrich MD [address] [place] [address] Primary Staff Physician Family Medicine 01/10/22 Eben Duncan DO [address] [place] [address] Primary Staff Physician Family Medicine 01/10/22 [facility] [address] [place] [address] Primary Service Family Medicine 01/10/22 Sagar Stout DO [address] [place] [address] Primary Staff Physician Family Medicine 01/10/22 Roderick Hidalgo DO [address] [place] [address] Family Medicine 01/21/22 [facility] [address] [place] [address] Primary Staff Physician Family Medicine 01/21/22 Elis Jean Baptiste, certified orthoptistAssistant Track Coach 04/23/22 Sprinkler Fitter Helper Relationship Specialty Start Date End Date Estefany Preciado MD [address] [place] [address] PCP - General Family Medicine 04/23/17 Franko Wiley DO [address] [place] [address] Primary Staff Physician Family Medicine 01/10/22 Roderick Hidalgo DO [address] [place] [address] Primary Staff Physician Family Medicine 01/10/22 Dorita Cabrera DO [address] [place] [address] Primary Staff Physician Family Medicine 01/10/22 Chay Preciado MD [address] [place] [address] Primary Staff Physician Family Medicine 01/10/22 Estefany Preciado MD [address] [place] [address] Primary Staff Physician Family Medicine 01/10/22 Gagan Goodrich MD [address] [place] [address] Primary Staff Physician Family Medicine 01/10/22 Eben Duncan DO [address] [place] [address] Primary Staff Physician Family Medicine 01/10/22 [facility] [address] [place] [address] Primary Service Family Medicine 01/10/22 Sagar Stout DO [address] [place] [address] Primary Staff Physician Family Medicine 01/10/22 Roderick Hidalgo DO [address] [place] [address] Family Medicine 01/21/22 [facility] [address] [place] [address] Primary Staff Physician Family Medicine 01/21/22 Elis Jean Baptiste, certified orthoptistAssistant Track Coach 04/23/22 Sprinkler Fitter Helper Relationship Specialty Start Date End Date Estefany Preciado MD [address] [place] [address] PCP - General Family Medicine 04/23/17 Franko Wiley DO [address] [place] [address] Primary Staff Physician Family Medicine 01/10/22 Roderick Hidalgo, DO [address] [place] [address] Primary Staff Physician Family Medicine 01/10/22 Dorita Cabrera DO [address] [place] [address] Primary Staff Physician Family Medicine 01/10/22 Chay Preciado MD [address] [place] [address] Primary Staff Physician Family Medicine 01/10/22 Estefany Preciado MD [address] [place] [address] Primary Staff Physician Family Medicine 01/10/22 Gagan Goodrich MD [address] [place] [address] Primary Staff Physician Family Medicine 01/10/22 Eben Duncan DO [address] [place] [address] Primary Staff Physician Family Medicine 01/10/22 [facility] [address] [place] [address] Primary Service Family Medicine 01/10/22 Sagar Stout DO [address] [place] [address] Primary Staff Physician Family Medicine 01/10/22 Roderick Hidalgo, DO [address] [place] [address] Family Medicine 01/21/22 [facility] [address] [place] [address] Primary Staff Physician Family Medicine 01/21/22 Elis Jean Baptiste, certified orthoptistAssistant Track Coach 04/23/22 Sprinkler Fitter Helper Relationship Specialty Start Date End Date Estefany Preciado MD [address] [place] [address] PCP - General Family Medicine 04/23/17 Franko Wiley DO [address] [place] [address] Primary Staff Physician Family Medicine 01/10/22 Roderick Hidalgo, DO [address] [place] [address] Primary Staff Physician Family Medicine 01/10/22 Dorita Cabrera, DO [address] [place] [address] Primary Staff Physician Family Medicine 01/10/22 Chay Preciado MD [address] [place] [address] Primary Staff Physician Family Medicine 01/10/22 Estefany Preciado MD [address] [place] [address] Primary Staff Physician Family Medicine 01/10/22 Gagan Goodrich MD [address] [place] [address] Primary Staff Physician Family Medicine 01/10/22 Eben Duncan, DO [address] [place] [address] Primary Staff Physician Family Medicine 01/10/22 [facility] [address] [place] [address] Primary Service Family Medicine 01/10/22 [address] Stout, DO [address] [place] [address] Primary Staff Physician Family Medicine 01/10/22 Roderick Hidalgo, DO [address] [place] [address] Family Medicine 01/21/22 [facility] [address] [place] [address] Primary Staff Physician Family Medicine 01/21/22 Elis Jean Baptiste, certified orthoptistAssistant Track Coach 04/23/22 Sprinkler Fitter Helper Relationship Specialty Start Date End Date Portia Calhoun, DO [address] [place] [phone] PCP - General Family Medicine 05/15/23 Franko Wiley, DO [address] [place] [address] Primary Staff Physician Family Medicine 01/10/22 Roderick Hidalgo DO [address] [place] [address] Primary Staff Physician Family Medicine 01/10/22 Dorita Cabrera DO [address] [place], [place] [phone] Primary Staff Physician Family Medicine 01/10/22 Chay Preciado MD [address] [place] [address] Primary Staff Physician Family Medicine 01/10/22 Estefany Preciado MD [address] [place] [address] Primary Staff Physician Family Medicine 01/10/22 Gagan Goodrich MD [address] [place] [address] Primary Staff Physician Family Medicine 01/10/22 Eben Duncan DO [address] [place] [address] Primary Staff Physician Family Medicine 01/10/22 Ruth Vera [address] [place] [address] Primary Service Family Medicine 01/10/22 Sagar Stout DO [address] [place] [address] Primary Staff Physician Family Medicine 01/10/22 Roderick Hidalgo, DO [address] [place] [address] Family Medicine 01/21/22 [facility] [address] [place] [address] Primary Staff Physician Family Medicine 01/21/22 Elis Jean Baptiste, certified orthoptistAssistant Track Coach 04/23/22 Sprinkler Fitter Helper Relationship Specialty Start Date End Date Portia Calhoun, DO [address] [place] [address] [phone] PCP - General Family Medicine 05/15/23 Franko Wiley DO [address] [place] [address] Primary Staff Physician Family Medicine 01/10/22 Roderick Hidalgo, DO [address] [place] [address] Primary Staff Physician Family Medicine 01/10/22 Dorita Cabrera, DO [address] [place] [phone] Primary Staff Physician Family Medicine 01/10/22 Chay Preciado MD [address] [place] [address] Primary Staff Physician Family Medicine 01/10/22 Estefany Preciado MD [address] [place] [address] Primary Staff Physician Family Medicine 01/10/22 Gagan Goodrich MD [address] [place] [address] Primary Staff Physician Family Medicine 01/10/22 Eben Duncan, DO [address] [facility] [place] [address] Primary Staff Physician Family Medicine 01/10/22 [facility] [address] [facility] [place] [address] Primary Service Family Medicine 01/10/22 Sagar Stout, DO [address] [place] [address] Primary Staff Physician Family Medicine 01/10/22 Roderick Hidalgo, DO [address] [facility] [place] [address] Family Medicine 01/21/22 [facility] [address] [facility] [place] [address] Primary Staff Physician Family Medicine 01/21/22 Elis Jean Baptiste, certified orthoptistAssistant Track Coach 04/23/22 Sprinkler Fitter Helper Relationship Specialty Start Date End Date Portia Calhoun, DO [address] [place] [address] [phone] PCP - General Family Medicine 05/15/23 Franko Wiley, DO [address] [place] [address] Primary Staff Physician Family Medicine 01/10/22 Roderick Hidalgo, DO [address] [place] [address] Primary Staff Physician Family Medicine 01/10/22 Dorita Cabrera DO [address] [place] [address] Primary Staff Physician Family Medicine 01/10/22 Chay Preciado MD [address] [place] [address] Primary Staff Physician Family Medicine 01/10/22 Estefany Preciado MD [address] [place] [address] Primary Staff Physician Family Medicine 01/10/22 Gagan Goodrich MD [address] [place] [address] Primary Staff Physician Family Medicine 01/10/22 Eben Duncan DO [address] [place] [address] Primary Staff Physician Family Medicine 01/10/22 Ruth Vera [address] [place] [address] Primary Service Family Medicine 01/10/22 Sagar Stout DO [address] [place] [address] Primary Staff Physician Family Medicine 01/10/22 Roderick Hidalgo, DO [address] [place] [address] Family Medicine 01/21/22 [facility] [address] [place] [address] Primary Staff Physician Family Medicine 01/21/22 Elis Jean Baptiste, certified orthoptistAssistant Track Coach 04/23/22 Sprinkler Fitter Helper Relationship Specialty Start Date End Date NyPortia saleemDO [address] [place] [address] [phone] PCP - General Family Medicine 05/15/23 Franko Wiley DO [address] [place] [address] Primary Staff Physician Family Medicine 01/10/22 Roderick Hidalgo, DO [address] [place] [address] Primary Staff Physician Family Medicine 01/10/22 Dorita Cabrera DO [address] [place], [place] [phone] Primary Staff Physician Family Medicine 01/10/22 Chay Preciado MD [address] [place] [address] Primary Staff Physician Family Medicine 01/10/22 Estefany Preciado MD [address] [place] [address] Primary Staff Physician Family Medicine 01/10/22 Gagan Goodrich MD [address] [facility] [place] [address] Primary Staff Physician Family Medicine 01/10/22 Eben Duncan, DO [address] [place] [address] Primary Staff Physician Family Medicine 01/10/22 [facility] [address] [facility] [place] [address] Primary Service Family Medicine 01/10/22 Sagar Stout DO [address] [place] [address] Primary Staff Physician Family Medicine 01/10/22 Roderick Hidalgo, DO [address] [facility] [place] [address] Family Medicine 01/21/22 [facility] [address] [place] [address] Primary Staff Physician Family Medicine 01/21/22 Elis Jean Baptiste, certified orthoptistAssistant Track Coach 04/23/22 Sprinkler Fitter Helper Relationship Specialty Start Date End Date Portia Calhoun DO [address] [place] [address] [phone] PCP - General Family Medicine 05/15/23 Franko Wiley, DO [address] [facility] [facility] [address] Primary Staff Physician Family Medicine 01/10/22 Roderick Hidalgo, DO [address] [place] [address] Primary Staff Physician Family Medicine 01/10/22 Dorita Cabrera DO [address] [place] [address] Primary Staff Physician Family Medicine 01/10/22 Chay Preciado MD [address] [place] [address] Primary Staff Physician Family Medicine 01/10/22 Estefany Preciado MD [address] [place] [address] Primary Staff Physician Family Medicine 01/10/22 Gagan Goodrich MD [address] [place] [address] Primary Staff Physician Family Medicine 01/10/22 Eben Duncan DO [address] [place] [address] Primary Staff Physician Family Medicine 01/10/22 Ruth Vera [address] [place] [address] Primary Service Family Medicine 01/10/22 Sagar Stout DO [address] [place] [address] Primary Staff Physician Family Medicine 01/10/22 Roderick Hidalgo, DO [address] [place] [address] Family Medicine 01/21/22 [facility] [address] [place] [address] Primary Staff Physician Family Medicine 01/21/22 Elis Jean Baptiste, certified orthoptistAssistant Track Coach 04/23/22 Sprinkler Fitter Helper Relationship Specialty Start Date End Date Portia Calhoun DO [address] [place] [address] [phone] PCP - General Family Medicine 05/15/23 Franko Wiley DO [address] [place] [address] Primary Staff Physician Family Medicine 01/10/22 Roderick Hidalgo, DO [address] [place] [address] Primary Staff Physician Family Medicine 01/10/22 Dorita Cabrera DO [address] [place] [phone] Primary Staff Physician Family Medicine 01/10/22 Chay Preciado MD [address] [place] [address] Primary Staff Physician Family Medicine 01/10/22 Estefany Preciado MD [address] [place] [address] Primary Staff Physician Family Medicine 01/10/22 Gagan Goodrich MD [address] [facility] [address] Primary Staff Physician Family Medicine 01/10/22 Eben Duncan, DO [address] [place] [address] Primary Staff Physician Family Medicine 01/10/22 [facility] [address] [place] [address] Primary Service Family Medicine 01/10/22 Sagar Stout DO [address] [place] [address] Primary Staff Physician Family Medicine 01/10/22 Roderick Hidalgo, DO [address] [place] [address] Family Medicine 01/21/22 [facility] [address] [place] [address] Primary Staff Physician Family Medicine 01/21/22 Elis Jean Baptiste, certified orthoptistAssistant Track Coach 04/23/22 Sprinkler Fitter Helper Relationship Specialty Start Date End Date Portia Calhoun DO [address] [place] [address] [phone] PCP - General Family Medicine 05/15/23 Franko Wiley, DO [address] [place] [address] Primary Staff Physician Family Medicine 01/10/22 Roderick Hidalgo, DO [address] [place] [address] Primary Staff Physician Family Medicine 01/10/22 Dorita Cabrera DO [address] [place] [address] Primary Staff Physician Family Medicine 01/10/22 Chay Preciado MD [address] [place] [address] Primary Staff Physician Family Medicine 01/10/22 Estefany Preciado MD [address] [place] [address] Primary Staff Physician Family Medicine 01/10/22 Gagan Goodrich MD [address] [place] [address] Primary Staff Physician Family Medicine 01/10/22 Eben Duncan DO [address] [place] [address] Primary Staff Physician Family Medicine 01/10/22 Ruth Vera [address] [place] [address] Primary Service Family Medicine 01/10/22 Sagar Stout DO [address] [place] [address] Primary Staff Physician Family Medicine 01/10/22 Roderick Hidalgo, DO [address] [place] [address] Family Medicine 01/21/22 [facility] [address] [place] [address] Primary Staff Physician Family Medicine 01/21/22 Elis Jean Baptiste, certified orthoptistAssistant Track Coach 04/23/22 Sprinkler Fitter Helper Relationship Specialty Start Date End Date Portia Calhoun DO [address] [place] [address] [phone] PCP - General Family Medicine 05/15/23 Franko Wiley DO [address] [place] [address] Primary Staff Physician Family Medicine 01/10/22 Roderick Hidalgo, DO [address] [place] [address] Primary Staff Physician Family Medicine 01/10/22 Dorita Cabrera DO [address] [place], [place] [address] Primary Staff Physician Family Medicine 01/10/22 Chay Preciado MD [address] [place] [address] Primary Staff Physician Family Medicine 01/10/22 Estefany Preciado MD [address] [place] [address] Primary Staff Physician Family Medicine 01/10/22 Gagan Goodrich MD [address] [place] [address] Primary Staff Physician Family Medicine 01/10/22 Eben Duncan, DO [address] COUNTS INCLUDE [address] [facility] [address] Primary Staff Physician Family Medicine 01/10/22 [facility] [address] [facility] [place] [address] Primary Service Family Medicine 01/10/22 Sagar Stout DO [address] [address] Primary Staff Physician Family Medicine 01/10/22 Roderick Hidalgo, DO [address] [facility] [place] [address] Family Medicine 01/21/22 [facility] [address] [place] [address] Primary Staff Physician Family Medicine 01/21/22 Elis Jean Baptiste, certified orthoptistAssistant Track Coach 04/23/22 Sprinkler Fitter Helper Relationship Specialty Start Date End Date Portia Calhoun DO [address] [place] [address] [phone] PCP - General Family Medicine 05/15/23 Franko Wiley DO [address] [facility] [place] [address] Primary Staff Physician Family Medicine 01/10/22 Roderick Hidalgo, DO [address] [place] [address] Primary Staff Physician Family Medicine 01/10/22 Dorita Cabrera DO [address] [place] [address] Primary Staff Physician Family Medicine 01/10/22 Chay Preciado MD [address] [place] [address] Primary Staff Physician Family Medicine 01/10/22 Estefany Preciado MD [address] [place] [address] Primary Staff Physician Family Medicine 01/10/22 Gagan Goodrich MD [address] [place] [address] Primary Staff Physician Family Medicine 01/10/22 Eben Duncan DO [address] [place] [address] Primary Staff Physician Family Medicine 01/10/22 Ruth Vera [address] [place] [address] Primary Service Family Medicine 01/10/22 Sagar Stout DO [address] [place] [address] Primary Staff Physician Family Medicine 01/10/22 Roderick Hidalgo, DO [address] [place] [address] Family Medicine 01/21/22 [facility] [address] [place] [address] Primary Staff Physician Family Medicine 01/21/22 Elis Jean Baptiste, certified orthoptistAssistant Track Coach 04/23/22 Sprinkler Fitter Helper Relationship Specialty Start Date End Date Portia Calhoun DO [address] [place] [address] [phone] PCP - General Family Medicine 05/15/23 Franko Wiley DO [address] [place] [address] Primary Staff Physician Family Medicine 01/10/22 Roderick Hidalgo, [address] [place] [address] Primary Staff Physician Family Medicine 01/10/22 Dorita Cabrera DO [address] [place] [phone] Primary Staff Physician Family Medicine 01/10/22 Chay Preciado MD [address] [place] [address] Primary Staff Physician Family Medicine 01/10/22 Estefany Preciado MD [address] [place] [address] Primary Staff Physician Family Medicine 01/10/22 Gagan Goodrich MD [address] [place] [address] Primary Staff Physician Family Medicine 01/10/22 Eben Duncan, DO [address] [place] [address] Primary Staff Physician Family Medicine 01/10/22 [facility] [address] [place] [address] Primary Service Family Medicine 01/10/22 Sagar Stout DO [address] [address] Primary Staff Physician Family Medicine 01/10/22 Roderick Hidalgo, DO [address] [facility] [place] [address] Family Medicine 01/21/22 [facility] [address] [place] [address] Primary Staff Physician Family Medicine 01/21/22 Elis Jean Baptiste, certified orthoptistAssistant Track Coach 04/23/22 Sprinkler Fitter Helper Relationship Specialty Start Date End Date Portia Calhoun DO [address] [place] [address]44 PCP - General Family Medicine 05/15/23 Franko Wiley, DO [address] [place] [address] Primary Staff Physician Family Medicine 01/10/22 Roderick Hidalgo, DO [address] [place] [address] Primary Staff Physician Family Medicine 01/10/22 Dorita Cabrera DO [address] [place] [address] Primary Staff Physician Family Medicine 01/10/22 Chay Preciado MD [address] [place] [address] Primary Staff Physician Family Medicine 01/10/22 Estefany Preciado MD [address] [place] [address] Primary Staff Physician Family Medicine 01/10/22 Gagan Goodrich MD [address] [place] [address] Primary Staff Physician Family Medicine 01/10/22 Eben Duncan DO [address] [place] [address] Primary Staff Physician Family Medicine 01/10/22 Ruth Vera [address] [place] [address] Primary Service Family Medicine 01/10/22 Sagar Stout DO [address] [place] [address] Primary Staff Physician Family Medicine 01/10/22 Roderick Hidalgo, DO [address] [place] [address] Family Medicine 01/21/22 [facility] [address] [place] [address] Primary Staff Physician Family Medicine 01/21/22 Elis Jean Baptiste, certified orthoptistAssistant Track Coach 04/23/22 Sprinkler Fitter Helper Relationship Specialty Start Date End Date Portia Calhoun DO [address] [place] [address]65[address] PCP - General Family Medicine 05/15/23 Franko Wiley DO [address] [place] [address] Primary Staff Physician Family Medicine 01/10/22 Roderick Hidalgo, [address] [place] [address] Primary Staff Physician Family Medicine 01/10/22 Dorita Cabrera DO [address] [place] [address] Primary Staff Physician Family Medicine 01/10/22 Chay Preciado MD [address] [place] [address] Primary Staff Physician Family Medicine 01/10/22 Estefany Preciado MD [address] [place] [address] Primary Staff Physician Family Medicine 01/10/22 Gagan Goodrich MD [address] [place] [address] Primary Staff Physician Family Medicine 01/10/22 Eben Duncan, DO [address] [place] [address] Primary Staff Physician Family Medicine 01/10/22 [facility] [address] [place] [address] Primary Service Family Medicine 01/10/22 Sagar Stout DO [address] [place] [address] Primary Staff Physician Family Medicine 01/10/22 Roderick Hidalgo, DO [address] [place] [address] Family Medicine 01/21/22 [facility] [address] [place] [address] Primary Staff Physician Family Medicine 01/21/22 Elis Jean Baptiste, certified orthoptistAssistant Track Coach 04/23/22 Sprinkler Fitter Helper Relationship Specialty Start Date End Date Portia Calhoun, DO [address] [place] [address] PCP - General Family Medicine 05/15/23 Franko Wiley, DO [address] [place] [address] Primary Staff Physician Family Medicine 01/10/22 Roderick Hidalgo DO [address] [place] [address] Primary Staff Physician Family Medicine 01/10/22 Dorita Cabrera DO [address] [place] [address] Primary Staff Physician Family Medicine 01/10/22 Chay Preciado MD [address] [place] [address] Primary Staff Physician Family Medicine 01/10/22 Estefany Preciado MD [address] [place] [address] Primary Staff Physician Family Medicine 01/10/22 Gagan Goodrich MD [address] [place] [address] Primary Staff Physician Family Medicine 01/10/22 Eben Duncan, [address] [place] [address] Primary Staff Physician Family Medicine 01/10/22 Ruth Vera [address] [place] [address] Primary Service Family Medicine 01/10/22 Sagar Stout DO [address] [place] [address] Primary Staff Physician Family Medicine 01/10/22 Roderick Hidalgo, [address] [place] [address] Family Medicine 01/21/22 [facility] [address] [place] [address] Primary Staff Physician Family Medicine 01/21/22 Elis Jean Baptiste, certified orthoptistAssistant Track Coach 04/23/22 Sprinkler Fitter Helper Relationship Specialty Start Date End Date Portia Calhoun DO [address] [place] [address] [phone] PCP - General Family Medicine 05/15/23 Franko Wiley DO [address] [place] [address] Primary Staff Physician Family Medicine 01/10/22 Roderick Hidalgo, [address] [place] [address] Primary Staff Physician Family Medicine 01/10/22 Dorita Cabrera, [address] [place] [address] Primary Staff Physician Family Medicine 01/10/22 Chay Preciado MD [address] [place] [address] Primary Staff Physician Family Medicine 01/10/22 Estefany Preciado MD [address] [place] [address] Primary Staff Physician Family Medicine 01/10/22 Gagan Goodrich MD [address] [facility] [place] [address] Primary Staff Physician Family Medicine 01/10/22 Eben Duncan, DO [address] [address] Primary Staff Physician Family Medicine 01/10/22 [facility] [address] [place] [address] Primary Service Family Medicine 01/10/22 Sagar Stout DO [address] [address] Primary Staff Physician Family Medicine 01/10/22 Roderick Hidalgo, DO [address] [place] [address] Family Medicine 01/21/22 [facility] [address] [place] [address] Primary Staff Physician Family Medicine 01/21/22 Elis Jean Baptiste, certified orthoptistAssistant Track Coach 04/23/22 Sprinkler Fitter Helper Relationship Specialty Start Date End Date Portia Calhoun, DO [address] [place] [address]15 PCP - General Family Medicine 05/15/23 Franko Wiley, DO [address] [address] Primary Staff Physician Family Medicine 01/10/22 Roderick Hidalgo DO [address] [place] [address] Primary Staff Physician Family Medicine 01/10/22 Dorita Cabrera DO [address] [place], [place] [address] Primary Staff Physician Family Medicine 01/10/22 Chay Preciado MD [address] [place] [address] Primary Staff Physician Family Medicine 01/10/22 Estefany Preciado MD [address] [place] [address] Primary Staff Physician Family Medicine 01/10/22 Gagan Goodrich MD [address] [place] [address] Primary Staff Physician Family Medicine 01/10/22 Eben Duncan DO [address] [place] [address] Primary Staff Physician Family Medicine 01/10/22 Ruth Vera [address] [place] [address] Primary Service Family Medicine 01/10/22 Sagar Stout DO [address] [place] [address] Primary Staff Physician Family Medicine 01/10/22 Roderick Hidalgo, [address] [place] [address] Family Medicine 01/21/22 [facility] [address] [place] [address] Primary Staff Physician Family Medicine 01/21/22 Elis Jean Baptiste, certified orthoptistAssistant Track Coach 04/23/22 Sprinkler Fitter Helper Relationship Specialty Start Date End Date Portia Calhoun DO [address] [place], [place] [phone] PCP - General Family Medicine 05/15/23 Franko Wiley DO [address] [place] [address] Primary Staff Physician Family Medicine 01/10/22 Roderick Hidalgo, [address] [place] [address] Primary Staff Physician Family Medicine 01/10/22 Dorita Cabrera DO [address] [place], [place] [id number] Primary Staff Physician Family Medicine 01/10/22 Chay [place] [address] Primary Staff Physician Family Medicine 01/10/22 Estefany Preciado MD [address] [place] [address] Primary Staff Physician Family Medicine 01/10/22 Gagan Goodrich MD [address] COUNTS INCLUDE [address] [facility] [address] Primary Staff Physician Family Medicine 01/10/22 Eben Duncan, DO [address] [place] [address] Primary Staff Physician Family Medicine 01/10/22 [facility] [address] [place] [address] Primary Service Family Medicine 01/10/22 Sagar Stout DO [address] [address] Primary Staff Physician Family Medicine 01/10/22 Roderick Hidalgo, DO [address] [address] Family Medicine 01/21/22 [facility] [address] [place] [address] Primary Staff Physician Family Medicine 01/21/22 Elis Jean Baptiste, certified orthoptistAssistant Track Coach 04/23/22 Sprinkler Fitter Helper Relationship Specialty Start Date End Date Portia Calhoun DO [address] [place] [address] PCP - General Family Medicine 05/15/23 Franko Wiley DO [address] [place] [address] Primary Staff Physician Family Medicine 01/10/22 Roderick Hidalgo DO [address] [place] [address] Primary Staff Physician Family Medicine 01/10/22 Dorita Cabrera, DO [address] [place] [address] Primary Staff Physician Family Medicine 01/10/22 Chay Preciado MD [address] [place] [address] Primary Staff Physician Family Medicine 01/10/22 Estefany Preciado MD [address] [place] [address] Primary Staff Physician Family Medicine 01/10/22 Gagan Goodrich MD [address] [place] [address] Primary Staff Physician Family Medicine 01/10/22 Eben Duncan DO [address] [place] [address] Primary Staff Physician Family Medicine 01/10/22 Ruth Vera [address] [place] [address] Primary Service Family Medicine 01/10/22 Sagar Stout DO [address] [place] [address] Primary Staff Physician Family Medicine 01/10/22 Roderick Hidalgo, DO [address] [place] [address] Family Medicine 01/21/22 [facility] [address] [place] [address] Primary Staff Physician Family Medicine 01/21/22 Elis Jean Baptiste, certified orthoptistAssistant Track Coach 04/23/22 Sprinkler Fitter Helper Relationship Specialty Start Date End Date [place] JaradDO [address] [place], [place] [id number] PCP - General Family Medicine 05/15/23 Franko Wiley DO [address] [place] [address] Primary Staff Physician Family Medicine 01/10/22 Roderick Hidalgo, [address] [place] [address] Primary Staff Physician Family Medicine 01/10/22 Dorita Cabrera, DO [address] [place] [address] Primary Staff Physician Family Medicine 01/10/22 Chay Preciado MD [address] [place] [address] Primary Staff Physician Family Medicine 01/10/22 Estefany Preciado MD [address] [place] [place] [address] Primary Staff Physician Family Medicine 01/10/22 Gagan Goodrich MD [address] [place] [address] Primary Staff Physician Family Medicine 01/10/22 Eben Duncan, DO [address] [place] [address] Primary Staff Physician Family Medicine 01/10/22 [facility] [address] [place] [address] Primary Service Family Medicine 01/10/22 Sagar Stout DO [address] [address] Primary Staff Physician Family Medicine 01/10/22 Roderick Hidalgo, DO [address] [address] Family Medicine 01/21/22 [facility] [address] [place] [address] Primary Staff Physician Family Medicine 01/21/22 Elis Jean Baptiste, certified orthoptistAssistant Track Coach 04/23/22 Sprinkler Fitter Helper Relationship Specialty Start Date End Date Portia Calhoun DO [address] [place] [address] PCP - General Family Medicine 05/15/23 Franko Wiley, DO [address] [place] [address] Primary Staff Physician Family Medicine 01/10/22 Roderick Hidalgo, DO [address] [place] [address] Primary Staff Physician Family Medicine 01/10/22 Dorita Cabrera, DO [address] [place] [address] Primary Staff Physician Family Medicine 01/10/22 Chay Preciado MD [address] [place] [address] Primary Staff Physician Family Medicine 01/10/22 Estefany Preciado MD [address] [place] [address] Primary Staff Physician Family Medicine 01/10/22 Gagan Goodrich MD [address] [place] [address] Primary Staff Physician Family Medicine 01/10/22 Eben Duncan, [address] [place] [address] Primary Staff Physician Family Medicine 01/10/22 Ruth Vera [address] [place] [address] Primary Service Family Medicine 01/10/22 Sagar Stout DO [address] [place] [address] Primary Staff Physician Family Medicine 01/10/22 Roderick Hidalgo, DO [address] [place] [address] Family Medicine 01/21/22 [facility] [address] [place] [address] Primary Staff Physician Family Medicine 01/21/22 Elis Jean Baptiste, certified orthoptistAssistant Track Coach 04/23/22 Sprinkler Fitter Helper Relationship Specialty Start Date End Date [place] JaradDO [address] [place], [place] [phone] PCP - General Family Medicine 05/15/23 Franko Wiley DO [address] [place] [address] Primary Staff Physician Family Medicine 01/10/22 Roderick Hidalgo, [address] [place] [address] Primary Staff Physician Family Medicine 01/10/22 Dorita Cabrera, [address] [place] [address] Primary Staff Physician Family Medicine 01/10/22 Chay Preciado MD [address] [place] [address] Primary Staff Physician Family Medicine 01/10/22 Estefany Preciado MD [address] [place] [address] Primary Staff Physician Family Medicine 01/10/22 Gagan Goodrich MD [address] [place] [address] Primary Staff Physician Family Medicine 01/10/22 Eben Duncan, DO [address] [place] [address] Primary Staff Physician Family Medicine 01/10/22 [facility] [address] [place] [address] Primary Service Family Medicine 01/10/22 Sagar Stout DO [address] [place] [address] Primary Staff Physician Family Medicine 01/10/22 Roderick Hidalgo, DO [address] [place] [address] Family Medicine 01/21/22 [facility] [address] [place] [address] Primary Staff Physician Family Medicine 01/21/22 Elis Jean Baptiste, certified orthoptistAssistant Track Coach 04/23/22 Sprinkler Fitter Helper Relationship Specialty Start Date End Date Portia Calhoun DO [address] [place] [address] PCP - General Family Medicine 05/15/23 Franko Wiley, DO [address] [place] [address] Primary Staff Physician Family Medicine 01/10/22 Roderick Hidalgo DO [address] [place] [address] Primary Staff Physician Family Medicine 01/10/22 Dorita Cabrera DO [address] [address] Primary Staff Physician Family Medicine 01/10/22 Chay Preciado MD [address] [place] [address] Primary Staff Physician Family Medicine 01/10/22 Estefany Preciado MD [address] [place] [address] Primary Staff Physician Family Medicine 01/10/22 Gagan Goodrich MD [address] [place] [address] Primary Staff Physician Family Medicine 01/10/22 Eben Duncan DO [address] [place] [address] Primary Staff Physician Family Medicine 01/10/22 Ruth Vera [address] [place] [address] Primary Service Family Medicine 01/10/22 Sagar Stout DO [address] [place] [address] Primary Staff Physician Family Medicine 01/10/22 Roderick Hidalgo, DO [address] [place] [address] Family Medicine 01/21/22 [facility] [address] [place] [address] Primary Staff Physician Family Medicine 01/21/22 Elis Jean Baptiste, certified orthoptistAssistant Track Coach 04/23/22 Susan King, certified professional ergonomist Hydro Generation Supervisor 11/24/23 11/24/23 Sprinkler Fitter Helper Relationship Specialty Start Date End Date Portia Calhoun DO [address] [place] [address] [id number] PCP - General Family Medicine 05/15/23 Franko Wiley DO [address] [place] [address] Primary Staff Physician Family Medicine 01/10/22 Roderick Hidalgo, [address] [place] [address] Primary Staff Physician Family Medicine 01/10/22 Dorita Cabrera, DO [address] [place], [place] [address] Primary Staff Physician Family Medicine 01/10/22 Chay Preciado MD [address] [place] [address] Primary Staff Physician Family Medicine 01/10/22 Estefany Preciado MD [address] [place] [address] Primary Staff Physician Family Medicine 01/10/22 Gagan Goodrich MD [address] COUNTS [facility] [address] Primary Staff Physician Family Medicine 01/10/22 Eben Duncan DO [address] [place] [address] Primary Staff Physician Family Medicine 01/10/22 [facility] [address] [place] [address] Primary Service Family Medicine 01/10/22 Sagar Stout DO [address] [place] [place] [address] Primary Staff Physician Family Medicine 01/10/22 Roderick Hidalgo DO [address] [place] [place] [address] Family Medicine 01/21/22 [facility] [address] [place] [address] Primary Staff Physician Family Medicine 01/21/22 Elis Jean Baptiste, certified orthoptistAssistant Track Coach 04/23/22 Sprinkler Fitter Helper Relationship Specialty Start Date End Date Portia Calhoun DO [address] [place] [address] PCP - General Family Medicine 05/15/23 Franko Wiley DO [address] [place] [address] Primary Staff Physician Family Medicine 01/10/22 Roderick Hidalgo DO [address] [place] [address] Primary Staff Physician Family Medicine 01/10/22 Dorita Cabrera DO [address] [place] [address] Primary Staff Physician Family Medicine 01/10/22 Chay Preciado MD [address] [place] [address] Primary Staff Physician Family Medicine 01/10/22 Estefany Preciado MD [address] [place] [address] Primary Staff Physician Family Medicine 01/10/22 Gagan Goodrich MD [address] [place] [address] Primary Staff Physician Family Medicine 01/10/22 Eben Duncan DO [address] [place] [address] Primary Staff Physician Family Medicine 01/10/22 Ruth Vera [address] [place] [address] Primary Service Family Medicine 01/10/22 Sagar Stout DO [address] [place] [address] Primary Staff Physician Family Medicine 01/10/22 Roderick Hidalgo, DO [address] [place] [address] Family Medicine 01/21/22 [facility] [place] [address] [place] [address] Primary Staff Physician Family Medicine 01/21/22 Elis Jean Baptiste, certified orthoptistAssistant Track Coach 04/23/22 Sprinkler Fitter Helper Relationship Specialty Start Date End Date Portia Calhoun DO [address] [place] [phone] PCP - General Family Medicine 05/15/23 Franko Wiley DO [address] [place] [address] Primary Staff Physician Family Medicine 01/10/22 Roderick Hidalgo, [address] [place] [address] Primary Staff Physician Family Medicine 01/10/22 Dorita Cabrera, DO [address] [place], [place] [address] Primary Staff Physician Family Medicine 01/10/22 Chay Preciado MD [address] [place] [address] Primary Staff Physician Family Medicine 01/10/22 Estefany Preciado MD [address] [place] [address] Primary Staff Physician Family Medicine 01/10/22 Gagan Goodrich MD [address] [place] [address] Primary Staff Physician Family Medicine 01/10/22 Eben Duncan DO [address] [place] [address] Primary Staff Physician Family Medicine 01/10/22 [facility] [address] [place] [address] Primary Service Family Medicine 01/10/22 Sagar Stout DO [address] [place] [address] Primary Staff Physician Family Medicine 01/10/22 Roderick Hidalgo DO [address] [place] [address] Family Medicine 01/21/22 [facility] [address] [place] [address] Primary Staff Physician Family Medicine 01/21/22 Elis Jean Baptiste, certified orthoptistAssistant Track Coach 04/23/22 Sprinkler Fitter Helper Relationship Specialty Start Date End Date Portia Calhoun DO [address] [place] [address] [phone] PCP - General Family Medicine 05/15/23 Franko Wiley DO [address] [place] [address] Primary Staff Physician Family Medicine 01/10/22 Roderick Hidalgo DO [address] [place] [address] Primary Staff Physician Family Medicine 01/10/22 Dorita Cabrera DO [address] [place] [address] Primary Staff Physician Family Medicine 01/10/22 Chay Preciado MD [address] [place] [address] Primary Staff Physician Family Medicine 01/10/22 Estefany Preciado MD [address] [address] Primary Staff Physician Family Medicine 01/10/22 Gagan Goodrich MD [address] [place] [address] Primary Staff Physician Family Medicine 01/10/22 Eben Duncan DO [address] [place] [address] Primary Staff Physician Family Medicine 01/10/22 Ruth Vera [address] [address] Primary Service Family Medicine 01/10/22 Sagar Stout DO [address] [place] [address] Primary Staff Physician Family Medicine 01/10/22 Roderick Hidalgo, DO [address] [place] [address] Family Medicine 01/21/22 [facility] [place] [address] [place] [address] Primary Staff Physician Family Medicine 01/21/22 Elis Jean Baptiste, certified orthoptistAssistant Track Coach 04/23/22 Sprinkler Fitter Helper Relationship Specialty Start Date End Date Portia Calhoun DO [address] [place] [phone] PCP - General Family Medicine 05/15/23 Franko Wiley DO [address] [place] [address] Primary Staff Physician Family Medicine 01/10/22 Roderick Hidalgo, DO [address] [place] [address] Primary Staff Physician Family Medicine 01/10/22 Dorita Cabrera, DO [address] [place] [address] Primary Staff Physician Family Medicine 01/10/22 Chay Preciado MD [address] [place] [address] Primary Staff Physician Family Medicine 01/10/22 Estefany Preciado MD [address] COUNTS INCLUDE [facility] [address] Primary Staff Physician Family Medicine 01/10/22 Gagan Goodrich MD [address] [place] [address] Primary Staff Physician Family Medicine 01/10/22 Eben Duncan DO [address] [place] [address] Primary Staff Physician Family Medicine 01/10/22 [facility] [address] [place] [address] Primary Service Family Medicine 01/10/22 Sagar Stout DO [address] [place] [address] Primary Staff Physician Family Medicine 01/10/22 Roderick Hidalgo DO [address] [place] [address] Family Medicine 01/21/22 [facility] [address] [place] [address] Primary Staff Physician Family Medicine 01/21/22 Elis Jean Baptiste, certified orthoptistAssistant Track Coach 04/23/22 Sprinkler Fitter Helper Relationship Specialty Start Date End Date Portia Calhoun DO [address] [place] [address] [phone] PCP - General Family Medicine 05/15/23 Franko Wiley DO [address] [place] [address] Primary Staff Physician Family Medicine 01/10/22 Roderick Hidalgo DO [address] [place] [address] Primary Staff Physician Family Medicine 01/10/22 Dorita Cabrera DO [address] [place] [address] Primary Staff Physician Family Medicine 01/10/22 Chay Preciado MD [address] [address] Primary Staff Physician Family Medicine 01/10/22 Estefany Preciado MD [address] [address] Primary Staff Physician Family Medicine 01/10/22 Gagan Goodrich MD [address] [address] Primary Staff Physician Family Medicine 01/10/22 Eben Duncan DO [address] [address] Primary Staff Physician Family Medicine 01/10/22 Ruth Vera [address] [place] [address] Primary Service Family Medicine 01/10/22 Sagar Stout, DO [address] [place] [address] Primary Staff Physician Family Medicine 01/10/22 Roderick Hidalgo, DO [address] [place] [address] Family Medicine 01/21/22 [facility] [place] [address] [place] [address] Primary Staff Physician Family Medicine 01/21/22 Elis Jean Baptiste, certified orthoptistAssistant Track Coach 04/23/22 Sprinkler Fitter Helper Relationship Specialty Start Date End Date Portia Calhoun DO [address] [place] [address] [phone] PCP - General Family Medicine 05/15/23 Franko Wiley, DO [address] [place] [address] Primary Staff Physician Family Medicine 01/10/22 Roderick Hidalgo, DO [address] [place] [address] Primary Staff Physician Family Medicine 01/10/22 Dorita Cabrera, DO [address] [place] [address] Primary Staff Physician Family Medicine 01/10/22 Chay Preciado MD [address] [place] [address] Primary Staff Physician Family Medicine 01/10/22 Estefany Preciado MD [address] [facility] [place] [address] Primary Staff Physician Family Medicine 01/10/22 Gagan Goodrich MD [address] [facility] [place] [address] Primary Staff Physician Family Medicine 01/10/22 Eben Duncan DO [address] [facility] [place] [address] Primary Staff Physician Family Medicine 01/10/22 [facility] [address] [place] [address] Primary Service Family Medicine 01/10/22 Sagar Stout DO [address] [address] Primary Staff Physician Family Medicine 01/10/22 Roderick Hidalgo, [address] [place] [address] Family Medicine 01/21/22 [facility] [address] [place] [address] Primary Staff Physician Family Medicine 01/21/22 Elis Jean Baptiste, certified orthoptistAssistant Track Coach 04/23/22 Sprinkler Fitter Helper Relationship Specialty Start Date End Date Portia Calhoun DO [address] [place] [address] [phone] PCP - General Family Medicine 05/15/23 Franko Wiley DO [address] [place] [address] Primary Staff Physician Family Medicine 01/10/22 Roderick Hidalgo DO [address] [place] [address] Primary Staff Physician Family Medicine 01/10/22 Dorita Cabrera DO [address] [place] [address] Primary Staff Physician Family Medicine 01/10/22 Chay Preciado MD [address] [address] Primary Staff Physician Family Medicine 01/10/22 Estefany Preciado MD [address] [address] Primary Staff Physician Family Medicine 01/10/22 Gagan Goodrich MD [address] [address] Primary Staff Physician Family Medicine 01/10/22 Eben Duncan DO [address] [address] Primary Staff Physician Family Medicine 01/10/22 Ruth Vera [address] [address] Primary Service Family Medicine 01/10/22 Sagar Stout DO [address] [place] [address] Primary Staff Physician Family Medicine 01/10/22 Roderick Hidalgo, DO [address] [place] [address] Family Medicine 01/21/22 [facility] [address] [place] [address] Primary Staff Physician Family Medicine 01/21/22 Elis Jean Baptiste, certified orthoptistAssistant Track Coach 04/23/22 Sprinkler Fitter Helper Relationship Specialty Start Date End Date Estefany Preciado MD [address] [place] [address] PCP - General Family Medicine 04/23/17 05/14/23 Franko Wiley DO [address] [place] [address] Primary Staff Physician Family Medicine 01/10/22 Roderick Hidalgo, [address] [place] [address] Primary Staff Physician Family Medicine 01/10/22 Dorita Cabrera DO [address] [place] [address] Primary Staff Physician Family Medicine 01/10/22 Chay Preciado MD [address] [place] [address] Primary Staff Physician Family Medicine 01/10/22 Estefany Preciado MD [address] [place] [address] Primary Staff Physician Family Medicine 01/10/22 Gagan Goodrich MD [address] COUNTS INCLUDE [facility] [address] Primary Staff Physician Family Medicine 01/10/22 Eben Duncan DO [address] [place] [address] Primary Staff Physician Family Medicine 01/10/22 [facility] [address] [address] Primary Service Family Medicine 01/10/22 Sagar Stout DO [address] [facility] [place] [address] Primary Staff Physician Family Medicine 01/10/22 Roderick Hidalgo DO [address] [place] [address] Family Medicine 01/21/22 [facility] [address] [place] [address] Primary Staff Physician Family Medicine 01/21/22 Elis Jean Baptiste, certified orthoptistAssistant Track Coach 04/23/22 Sprinkler Fitter Helper Relationship Specialty Start Date End Date Portia Calhoun DO [address] [place] [address] PCP - General Family Medicine 05/15/23 Franko Wiley DO [address] [place] [address] Primary Staff Physician Family Medicine 01/10/22 Roderick Hidalgo DO [address] [facility] [place] [address] Primary Staff Physician Family Medicine 01/10/22 Dorita Cabrera DO [address] [place] [address] Primary Staff Physician Family Medicine 01/10/22 Chay Preciado MD [address] [address] Primary Staff Physician Family Medicine 01/10/22 Estefany Preciado MD [address] [place] [address] Primary Staff Physician Family Medicine 01/10/22 Gagan Goodrich MD [address] [place] [address] Primary Staff Physician Family Medicine 01/10/22 Eben Duncan DO [address] [place] [address] Primary Staff Physician Family Medicine 01/10/22 Ruth Vera [address] [place] [address] Primary Service Family Medicine 01/10/22 Sagar Stout DO [address] [place] [address] Primary Staff Physician Family Medicine 01/10/22 Roderick Hidalgo, DO [address] [place] [address] Family Medicine 01/21/22 [facility] [place] [address] [place] [address] Primary Staff Physician Family Medicine 01/21/22 Elis Jean Baptitse, certified orthoptistAssistant Track Coach 04/23/22 Sprinkler Fitter Helper Relationship Specialty Start Date End Date Portia Calhoun DO [address] [place] [address] PCP - General Family Medicine 05/15/23 Franko Wiley DO [address] [place] [address] Primary Staff Physician Family Medicine 01/10/22 Roderick Hidalgo, [address] [place] [address] Primary Staff Physician Family Medicine 01/10/22 Dorita Cabrera, DO [address] [place] [address] Primary Staff Physician Family Medicine 01/10/22 Chay Preciado MD [address] [place] [place] [address] Primary Staff Physician Family Medicine 01/10/22 Estefany Preciado MD [address] [address] Primary Staff Physician Family Medicine 01/10/22 Gagan Goodrich MD [address] [address] Primary Staff Physician Family Medicine 01/10/22 Eben Duncan DO [address] [place] [address] Primary Staff Physician Family Medicine 01/10/22 [facility] [address] [place] [address] Primary Service Family Medicine 01/10/22 Sagar Stout DO [address] [place] [address] Primary Staff Physician Family Medicine 01/10/22 Roderick Hidalgo, [address] [place] [address] Family Medicine 01/21/22 [facility] [address] [place] [address] Primary Staff Physician Family Medicine 01/21/22 Elis Jean Baptiste, certified orthoptistAssistant Track Coach 04/23/22 Sprinkler Fitter Helper Relationship Specialty Start Date End Date Portia Calhoun DO [address] [place] [address] PCP - General Family Medicine 05/15/23 Franko Wiley DO [address] [place] [address] Primary Staff Physician Family Medicine 01/10/22 Roderick Hidalgo DO [address] [place] [address] Primary Staff Physician Family Medicine 01/10/22 Dorita Cabrera DO [address] [place] [id number] Primary Staff Physician Family Medicine 01/10/22 Chay Preciado MD [address] [place] [address] Primary Staff Physician Family Medicine 01/10/22 Estefany Preciado MD [address] [place] [address] Primary Staff Physician Family Medicine 01/10/22 Gagan Goodrich MD [address] [place] [address] Primary Staff Physician Family Medicine 01/10/22 Eben Duncan DO [address] [place] [address] Primary Staff Physician Family Medicine 01/10/22 Ruth Vera [address] [place] [address] Primary Service Family Medicine 01/10/22 Sagar Stout, DO [address] [place] [address] Primary Staff Physician Family Medicine 01/10/22 Roderick Hidalgo, DO [address] [place] [address] Family Medicine 01/21/22 [facility] [place] [address] [place] [address] Primary Staff Physician Family Medicine 01/21/22 Elis Jean Baptiste, certified orthoptistAssistant Track Coach 04/23/22 Sprinkler Fitter Helper Relationship Specialty Start Date End Date Portia Calhoun DO [address] [place] [id number] PCP - General Family Medicine 05/15/23 Franko Wiley DO [address] [place] [address] Primary Staff Physician Family Medicine 01/10/22 Roderick Hidalgo, DO [address] [place] [address] Primary Staff Physician Family Medicine 01/10/22 Dorita Cabrera, DO [address] [place], [place] [address] Primary Staff Physician Family Medicine 01/10/22 Chay Preciado MD [address] [place] [address] Primary Staff Physician Family Medicine 01/10/22 Estefany Preciado MD [address] [place] [address] Primary Staff Physician Family Medicine 01/10/22 Gagan Goodrich MD [address] [place] [address] Primary Staff Physician Family Medicine 01/10/22 Eben Duncan DO [address] [place] [address] Primary Staff Physician Family Medicine 01/10/22 [facility] [address] [place] [address] Primary Service Family Medicine 01/10/22 Sagar Stout DO [address] [place] [address] Primary Staff Physician Family Medicine 01/10/22 Roderick Hidalgo, DO [address] [place] [address] Family Medicine 01/21/22 [facility] [address] [place] [address] Primary Staff Physician Family Medicine 01/21/22 Elis Jean Baptiste, certified orthoptistAssistant Track Coach 04/23/22 Sprinkler Fitter Helper Relationship Specialty Start Date End Date Portia Calhoun DO [address] [place] [address] PCP - General Family Medicine 05/15/23 Franko Wiley DO [address] [place] [address] Primary Staff Physician Family Medicine 01/10/22 Roderick Hidalgo DO [address] [place] [address] Primary Staff Physician Family Medicine 01/10/22 Dorita Cabrera DO [address] [place] [id number] Primary Staff Physician Family Medicine 01/10/22 Chay Preciado MD [address] [place] [address] Primary Staff Physician Family Medicine 01/10/22 Estefany Preciado MD [address] [place] [address] Primary Staff Physician Family Medicine 01/10/22 Gagan Goodrich MD [address] [place] [address] Primary Staff Physician Family Medicine 01/10/22 Eben Duncan DO [address] [place] [address] Primary Staff Physician Family Medicine 01/10/22 Ruth Vera [address] [place] [address] Primary Service Family Medicine 01/10/22 Sagar Stout DO [address] [place] [address] Primary Staff Physician Family Medicine 01/10/22 Roderick Hidalgo, DO [address] [place] [address] Family Medicine 01/21/22 [facility] [address] [place] [address] Primary Staff Physician Family Medicine 01/21/22 Elis Jean Baptiste, certified orthoptistAssistant Track Coach 04/23/22 Sprinkler Fitter Helper Relationship Specialty Start Date End Date Portia Calhoun DO [address] [place] [phone] PCP - General Family Medicine 05/15/23 Franko Wiley DO [address] [place] [address] Primary Staff Physician Family Medicine 01/10/22 Roderick Hidalgo, [address] [place] [address] Primary Staff Physician Family Medicine 01/10/22 Dorita Cabrera, DO [address] [place] [phone] Primary Staff Physician Family Medicine 01/10/22 Chay Preciado MD [address] [place] [address] Primary Staff Physician Family Medicine 01/10/22 Estefany Preciado MD [address] [place] [address] Primary Staff Physician Family Medicine 01/10/22 Gagan Goodrich MD [address] [place] [address] Primary Staff Physician Family Medicine 01/10/22 Eben Duncan DO [address] [place] [address] Primary Staff Physician Family Medicine 01/10/22 [facility] [address] [place] [address] Primary Service Family Medicine 01/10/22 Sagar Stout DO [address] [place] [address] Primary Staff Physician Family Medicine 01/10/22 Roderick Hidalgo, DO [address] [place] [address] Family Medicine 01/21/22 [facility] [address] [place] [address] Primary Staff Physician Family Medicine 01/21/22 Elis Jean Baptiste, certified orthoptistAssistant Track Coach 04/23/22 Sprinkler Fitter Helper Relationship Specialty Start Date End Date Portia Calhoun DO [address] [place], [place] [phone] PCP - General Family Medicine 05/15/23 Franko Wiley DO [address] [place] [address] Primary Staff Physician Family Medicine 01/10/22 Roderick Hidalgo, DO [address] [place] [address] Primary Staff Physician Family Medicine 01/10/22 Dorita Cabrera DO [address] [place] [phone] Primary Staff Physician Family Medicine 01/10/22 Chay Prceiado MD [address] [place] [address] Primary Staff Physician Family Medicine 01/10/22 Estefany Preciado MD [address] [place] [address] Primary Staff Physician Family Medicine 01/10/22 Gagan Goodrich MD [address] [place] [address] Primary Staff Physician Family Medicine 01/10/22 Eben Duncan DO [address] [place] [address] Primary Staff Physician Family Medicine 01/10/22 Ruth Vera [address] [place] [address] Primary Service Family Medicine 01/10/22 Sagar Stout, DO [address] [place] [address] Primary Staff Physician Family Medicine 01/10/22 Roderick Hidalgo, DO [address] [place] [address] Family Medicine 01/21/22 [facility] [address] [place] [address] Primary Staff Physician Family Medicine 01/21/22 Elis Jean Baptiste, certified orthoptistAssistant Track Coach 04/23/22 Sprinkler Fitter Helper Relationship Specialty Start Date End Date Portia Calhoun DO [address] [place], [place] [phone] PCP - General Family Medicine 05/15/23 Franko Wiley DO [address] [place] [address] Primary Staff Physician Family Medicine 01/10/22 Roderick Hidalgo, DO [address] [place] [address] Primary Staff Physician Family Medicine 01/10/22 Dorita Cabrera, DO [address] [place] [phone] Primary Staff Physician Family Medicine 01/10/22 Chay Preciado MD [address] [place] [address] Primary Staff Physician Family Medicine 01/10/22 Estefany Preciado MD [address] [place] [address] Primary Staff Physician Family Medicine 01/10/22 Gagan Goodrich MD [address] [place] [address] Primary Staff Physician Family Medicine 01/10/22 Eben Duncan DO [address] [place] [address] Primary Staff Physician Family Medicine 01/10/22 [facility] [address] [place] [address] Primary Service Family Medicine 01/10/22 Sagar Stout DO [address] [place] [address] Primary Staff Physician Family Medicine 01/10/22 Roderick Hidalgo DO [address] [place] [address] Family Medicine 01/21/22 [facility] [address] [place] [address] Primary Staff Physician Family Medicine 01/21/22 Elis Jean Baptiste, certified orthoptistAssistant Track Coach 04/23/22 Sprinkler Fitter Helper Relationship Specialty Start Date End Date Portia Calhoun DO [address] [place], [place] [phone] PCP - General Family Medicine 05/15/23 Franko Wiley DO [address] [place] [address] Primary Staff Physician Family Medicine 01/10/22 Roderick Hidalgo, DO [address] [place] [address] Primary Staff Physician Family Medicine 01/10/22 Dorita Cabrera DO [address] [place] [address] Primary Staff Physician Family Medicine 01/10/22 Chay Preciado MD [address] [place] [address] Primary Staff Physician Family Medicine 01/10/22 Estefany Preciado MD [address] [place] [address] Primary Staff Physician Family Medicine 01/10/22 Gagan Goodrich MD [address] [place] [address] Primary Staff Physician Family Medicine 01/10/22 Eben Duncan DO [address] [place] [address] Primary Staff Physician Family Medicine 01/10/22 Ruth Vera [address] [place] [address] Primary Service Family Medicine 01/10/22 Sagar Stout, DO [address] [place] [address] Primary Staff Physician Family Medicine 01/10/22 Roderick Hidalgo, DO [address] [place] [address] Family Medicine 01/21/22 [facility] [address] [place] [address] Primary Staff Physician Family Medicine 01/21/22 Elis Jean Baptiste, certified orthoptistAssistant Track Coach 04/23/22 Sprinkler Fitter Helper Relationship Specialty Start Date End Date Portia Calhoun DO [address] [place] [phone] PCP - General Family Medicine 05/15/23 Franko Wiley DO [address] [place] [address] Primary Staff Physician Family Medicine 01/10/22 Roderick Hidalgo, DO [address] [place] [address] Primary Staff Physician Family Medicine 01/10/22 Dorita Cabrera, DO [address] [place] [address] Primary Staff Physician Family Medicine 01/10/22 Chay Preciado MD [address] [place] [address] Primary Staff Physician Family Medicine 01/10/22 Estefany Preciado MD [address] [place] [address] Primary Staff Physician Family Medicine 01/10/22 Gagan Goodrich MD [address] [place] [address] Primary Staff Physician Family Medicine 01/10/22 Eben Duncan DO [address] [place] [address] Primary Staff Physician Family Medicine 01/10/22 [facility] [address] [place] [address] Primary Service Family Medicine 01/10/22 Sagar Stout DO [address] [place] [address] Primary Staff Physician Family Medicine 01/10/22 Roderick Hidalgo DO [address] [place] [address] Family Medicine 01/21/22 [facility] [address] [place] [address] Primary Staff Physician Family Medicine 01/21/22 Elis Jean Baptiste, certified orthoptistAssistant Track Coach 04/23/22 Sprinkler Fitter Helper Relationship Specialty Start Date End Date Portia Calhoun [address] [place], [place] [phone] PCP - General Family Medicine 05/15/23 Franko Wiley DO [address] [place] [address] Primary Staff Physician Family Medicine 01/10/22 Roderick Hidalgo DO [address] [place] [address] Primary Staff Physician Family Medicine 01/10/22 Dorita Cabrera DO [address] [place], [place] [phone] Primary Staff Physician Family Medicine 01/10/22 Chay Preciado MD [address] [place] [address] Primary Staff Physician Family Medicine 01/10/22 Estefany Preciado MD [address] [place] [address] Primary Staff Physician Family Medicine 01/10/22 Gagan Goodrich MD [address] [place] [address] Primary Staff Physician Family Medicine 01/10/22 Eben Duncan DO [address] [place] [address] Primary Staff Physician Family Medicine 01/10/22 [facility] [address] [place] [address] Primary Service Family Medicine 01/10/22 Sagar Stout, DO [address] [place] [address] Primary Staff Physician Family Medicine 01/10/22 Roderick Hidalgo, DO [address] [place] [address] Family Medicine 01/21/22 [facility] [address] [place] [address] Primary Staff Physician Family Medicine 01/21/22 Elis Jean Baptiste, certified orthoptistAssistant Track Coach 04/23/22 Sprinkler Fitter Helper Relationship Specialty Start Date End Date NyHortecniaPortia Jarad, DO [address] [place] [phone] PCP - General Family Medicine 05/15/23 Franko Wiley, DO [address] [place] [address] Primary Staff Physician Family Medicine 01/10/22 Rodercik Hidalgo, DO [address] [place] [address] Primary Staff Physician Family Medicine 01/10/22 Dorita Cabrera, DO [address] [place] [address] Primary Staff Physician Family Medicine 01/10/22 Chay Preciado MD [address] [place] [address] Primary Staff Physician Family Medicine 01/10/22 Estefany Preciado MD [address] [place] [address] Primary Staff Physician Family Medicine 01/10/22 Gagan Goodrich MD [address] [place] [address] Primary Staff Physician Family Medicine 01/10/22 Eben Duncan DO [address] [place] [address] Primary Staff Physician Family Medicine 01/10/22 [facility] [address] [place] [address] Primary Service Family Medicine 01/10/22 Sagar Stout DO [address] [place] [address] Primary Staff Physician Family Medicine 01/10/22 Roderick Hidalgo, [address] [place] [address] Family Medicine 01/21/22 [facility] [address] [place] [address] Primary Staff Physician Family Medicine 01/21/22 Elis Jean Baptiste, certified orthoptistAssistant Track Coach 04/23/22 Sprinkler Fitter Helper Relationship Specialty Start Date End Date Portia Calhonu [address] [place] [address] PCP - General Family Medicine 05/15/23 Franko Wiley DO [address] [place] [address] Primary Staff Physician Family Medicine 01/10/22 Roderick Hidalgo DO [address] [place] [address] Primary Staff Physician Family Medicine 01/10/22 Dorita Cabrera DO [address] [place], [place] [phone] Primary Staff Physician Family Medicine 01/10/22 Chay Preciado MD [address] [place] [address] Primary Staff Physician Family Medicine 01/10/22 Estefany Preciado MD [address] [place] [address] Primary Staff Physician Family Medicine 01/10/22 Gagan Goodrich MD [address] [place] [address] Primary Staff Physician Family Medicine 01/10/22 Eben Duncan DO [address] COUNTS IN[facility] [place] [address] Primary Staff Physician Family Medicine 01/10/22 [facility] [address] [place] [address] Primary Service Family Medicine 01/10/22 Sagar Stout, DO [address] [place] [address] Primary Staff Physician Family Medicine 01/10/22 Roderick Hidalgo, DO [address] [place] [address] Family Medicine 01/21/22 [facility] [address] [place] [address] Primary Staff Physician Family Medicine 01/21/22 Elis Jean Baptiste, certified orthoptistAssistant Track Coach 04/23/22 Sprinkler Fitter Helper Relationship Specialty Start Date End Date NyPortia, DO [address] [place] [phone] PCP - General Family Medicine 05/15/23 Franko Wiley DO [address] [place] [address] Primary Staff Physician Family Medicine 01/10/22 Roderick Hidalgo, DO [address] [place] [address] Primary Staff Physician Family Medicine 01/10/22 Dorita Cabrera, DO [address] [place], [place] [address] Primary Staff Physician Family Medicine 01/10/22 Chay Preciado MD [address] [place] [address] Primary Staff Physician Family Medicine 01/10/22 Estefany Preciado MD [address] [place] [address] Primary Staff Physician Family Medicine 01/10/22 Gagan Goodrich MD [address] [place] [address] Primary Staff Physician Family Medicine 01/10/22 Eben Duncan DO [address] [place] [address] Primary Staff Physician Family Medicine 01/10/22 [facility] [address] [place] [address] Primary Service Family Medicine 01/10/22 Sagar Stout DO [address] [place] [address] Primary Staff Physician Family Medicine 01/10/22 Roderick Hidalgo, DO [address] [place] [address] Family Medicine 01/21/22 [facility] Ruth [place] [address] [place] [address] Primary Staff Physician Family Medicine 01/21/22 Elis Jean Baptiste, certified orthoptistAssistant Track Coach 04/23/22 Sprinkler Fitter Helper Relationship Specialty Start Date End Date Portia Calhoun DO [address] [place] [address] PCP - General Family Medicine 05/15/23 Franko Wiley DO [address] [place] [address] Primary Staff Physician Family Medicine 01/10/22 Roderick Hidalgo, DO [address] [place] [address] Primary Staff Physician Family Medicine 01/10/22 Dorita Cabrera DO [address] [place] [address] Primary Staff Physician Family Medicine 01/10/22 Chay Preciado MD [address] [place] [address] Primary Staff Physician Family Medicine 01/10/22 Estefany Preciado MD [address] [place] [address] Primary Staff Physician Family Medicine 01/10/22 Gagan Goodrich MD [address] [place] [address] Primary Staff Physician Family Medicine 01/10/22 Eben Duncan DO [address] [place] [address] Primary Staff Physician Family Medicine 01/10/22 [facility] [address] [place] [address] Primary Service Family Medicine 01/10/22 Sagar Stout DO [address] [place] [address] Primary Staff Physician Family Medicine 01/10/22 Roderick Hidalgo, DO [address] [place] [address] Family Medicine 01/21/22 [facility] [address] [place] [address] Primary Staff Physician Family Medicine 01/21/22 Elis Jean Baptiste, certified orthoptistAssistant Track Coach 04/23/22 Sprinkler Fitter Helper Relationship Specialty Start Date End Date Hortencia Calhounland Jarad, DO [address] [place] [address] PCP - General Family Medicine 05/15/23 Franko Wiley DO [address] [place] [address] Primary Staff Physician Family Medicine 01/10/22 Roderick Hidalgo, DO [address] [place] [address] Primary Staff Physician Family Medicine 01/10/22 Dorita Cabrera, DO [address] [place], [place] [address] Primary Staff Physician Family Medicine 01/10/22 Chay Preciado MD [address] [place] [address] Primary Staff Physician Family Medicine 01/10/22 Estefany Preciado MD [address] [place] [address] Primary Staff Physician Family Medicine 01/10/22 Gagan Goodrich MD [address] [place] [address] Primary Staff Physician Family Medicine 01/10/22 Eben Duncan DO [address] [place] [address] Primary Staff Physician Family Medicine 01/10/22 [facility] [address] [place] [address] Primary Service Family Medicine 01/10/22 Sagar Stout DO [address] [place] [address] Primary Staff Physician Family Medicine 01/10/22 Roderick Hidalgo, DO [address] [place] [address] Family Medicine 01/21/22 [facility] [address] [place] [address] Primary Staff Physician Family Medicine 01/21/22 Elis Jean Baptiste, certified orthoptistAssistant Track Coach 04/23/22 Sprinkler Fitter Helper Relationship Specialty Start Date End Date Portia Calhoun, DO [address] [place], [place] [phone] PCP - General Family Medicine 05/15/23 Franko Wiley DO [address] [place] [address] Primary Staff Physician Family Medicine 01/10/22 Roderick Hidalgo, DO [address] [facility] [place] [address] Primary Staff Physician Family Medicine 01/10/22 Dorita Cabrera DO [address] [place], [place] [address] Primary Staff Physician Family Medicine 01/10/22 Chay Preciado MD [address] [place] [address] Primary Staff Physician Family Medicine 01/10/22 Estefany Preciado MD [address] [place] [address] Primary Staff Physician Family Medicine 01/10/22 Gagan Goodrich MD [address] [place] [address] Primary Staff Physician Family Medicine 01/10/22 Eben Duncan DO [address] [place] [address] Primary Staff Physician Family Medicine 01/10/22 [facility] [address] [place] [address] Primary Service Family Medicine 01/10/22 Sagar Stout DO [address] [place] [address] Primary Staff Physician Family Medicine 01/10/22 Roderick Hidalgo, DO [address] [place] [address] Family Medicine 01/21/22 [facility] [address] [place] [address] Primary Staff Physician Family Medicine 01/21/22 Elis Jean Baptiste, certified orthoptistAssistant Track Coach 04/23/22 Sprinkler Fitter Helper Relationship Specialty Start Date End Date Portia Calhoun DO [address] [place] [phone] PCP - General Family Medicine 05/15/23 Franko Wiley DO [address] [place] [address] Primary Staff Physician Family Medicine 01/10/22 Roderick Hidalgo, DO [address] [place] [address] Primary Staff Physician Family Medicine 01/10/22 Dorita Cabrera DO [address] [place], [place] [phone] Primary Staff Physician Family Medicine 01/10/22 Chay Preciado MD [address] [place] [address] Primary Staff Physician Family Medicine 01/10/22 Estefany Preciado MD [address] [place] [address] Primary Staff Physician Family Medicine 01/10/22 Gagan Goodrich MD [address] [place] [address] Primary Staff Physician Family Medicine 01/10/22 Eben Duncan DO [address] [place] [address] Primary Staff Physician Family Medicine 01/10/22 [facility] [address] [place] [address] Primary Service Family Medicine 01/10/22 Sagar Stout DO [address] [place] [address] Primary Staff Physician Family Medicine 01/10/22 Roderick Hidalgo, [address] [place] [address] Family Medicine 01/21/22 [facility] [address] [place] [address] Primary Staff Physician Family Medicine 01/21/22 Elis Jean Baptiste, certified orthoptistAssistant Track Coach 04/23/22 Sprinkler Fitter Helper Relationship Specialty Start Date End Date Portia Calhoun DO [address] [place] [address] PCP - General Family Medicine 05/15/23 Franko Wiley DO [address] [place] [address] Primary Staff Physician Family Medicine 01/10/22 Roderick Hidalgo, DO [address] [place] [address] Primary Staff Physician Family Medicine 01/10/22 Dorita Cabrera DO [address] [facility] [place] [phone] Primary Staff Physician Family Medicine 01/10/22 Chay Preciado MD [address] [place] [address] Primary Staff Physician Family Medicine 01/10/22 Estefany Preciado MD [address] [facility] [place] [address] Primary Staff Physician Family Medicine 01/10/22 Gagan Goodrich MD [address] [place] [address] Primary Staff Physician Family Medicine 01/10/22 Ruth Vera [address] [place] [address] Primary Service Family Medicine 01/10/22 Sagar Stout DO [address] [place] [address] Primary Staff Physician Family Medicine 01/10/22 Roderick Hidalgo, DO [address] [place] [address] Family Medicine 01/21/22 [facility] [address] [place] [address] Primary Staff Physician Family Medicine 01/21/22 Elis Jean Baptiste, certified orthoptistAssistant Track Coach 04/23/22 Sprinkler Fitter Helper Relationship Specialty Start Date End Date Portia Calhoun DO [address] [place] [address] [phone] PCP - General Family Medicine 05/15/23 Franko Wiley DO [address] [place] [address] Primary Staff Physician Family Medicine 01/10/22 Roderick Hidalgo, [address] [place] [address] Primary Staff Physician Family Medicine 01/10/22 Dorita Cabrera, DO [address] [place], [place] [phone] Primary Staff Physician Family Medicine 01/10/22 Chay Preciado MD [address] [place] [address] Primary Staff Physician Family Medicine 01/10/22 Estefany Preciado MD [address] [place] [address] Primary Staff Physician Family Medicine 01/10/22 Gagan Goodrich MD [address] [facility] [place] [address] Primary Staff Physician Family Medicine 01/10/22 [facility] [address] [place] [address] Primary Service Family Medicine 01/10/22 Sagar Stout DO [address] [place] [address] Primary Staff Physician Family Medicine 01/10/22 Roderick Hidalgo DO [address] [place] [address] Family Medicine 01/21/22 [facility] [address] [facility] [place] [address] Primary Staff Physician Family Medicine 01/21/22 Elis Jean Baptiste, certified orthoptistAssistant Track Coach 04/23/22 Sprinkler Fitter Helper Relationship Specialty Start Date End Date Portia Calhoun DO [address] [place] [address] [phone] PCP - General Family Medicine 05/15/23 Franko Wiley DO [address] [place] [address] Primary Staff Physician Family Medicine 01/10/22 Roderick Hidalgo, DO [address] [place] [address] Primary Staff Physician Family Medicine 01/10/22 Dorita Cabrera DO [address] [place], [place] [phone] Primary Staff Physician Family Medicine 01/10/22 Chay Preciado MD [address] [place] [address] Primary Staff Physician Family Medicine 01/10/22 Estefany Preciado MD [address] [place] [address] Primary Staff Physician Family Medicine 01/10/22 Gagan Goodrich MD [address] [place] [address] Primary Staff Physician Family Medicine 01/10/22 [facility] [address] [place] [address] Primary Service Family Medicine 01/10/22 Sagar Stout DO [address] [place] [address] Primary Staff Physician Family Medicine 01/10/22 Roderick Hidalgo, DO [address] [place] [address] Family Medicine 01/21/22 MnsuryaRuth [address] [place] [address] Primary Staff Physician Family Medicine 01/21/22 Elis Jean Baptiste, certified orthoptistAssistant Track Coach 04/23/22 Sprinkler Fitter Helper Relationship Specialty Start Date End Date Portia Calhoun [address] [place] [address] [phone] PCP - General Family Medicine 05/15/23 Franko Wiley DO [address] [place] [place] [address] Primary Staff Physician Family Medicine 01/10/22 Roderick Hidalgo DO [address] [place] [address] Primary Staff Physician Family Medicine 01/10/22 Dorita Cabrera DO [address] [place], [place] [phone] Primary Staff Physician Family Medicine 01/10/22 Chay Preciado MD [address] [place] [address] Primary Staff Physician Family Medicine 01/10/22 Estefany Preciado MD [address] [place] [address] Primary Staff Physician Family Medicine 01/10/22 Gagan Goodrich MD [address] [place] [address] Primary Staff Physician Family Medicine 01/10/22 [facility] [address] [place] [address] Primary Service Family Medicine 01/10/22 Sagar Stout DO [address] [place] [address] Primary Staff Physician Family Medicine 01/10/22 Roderick Hidalgo, DO [address] [place] [address] Family Medicine 01/21/22 [facility] [address] [facility] [place] [address] Primary Staff Physician Family Medicine 01/21/22 Elis Jean Baptiste, certified orthoptistAssistant Track Coach 04/23/22 Sprinkler Fitter Helper Relationship Specialty Start Date End Date Portia Calhoun DO [address] [place] [address] [phone] PCP - General Family Medicine 05/15/23 Franko Wiley, DO [address] [place] [address] Primary Staff Physician Family Medicine 01/10/22 Roderick Hidalgo, [address] [place] [address] Primary Staff Physician Family Medicine 01/10/22 Dorita Cabrera, DO [address] [facility] [place] [place] [phone] Primary Staff Physician Family Medicine 01/10/22 Chay Preciado MD [address] [place] [address] Primary Staff Physician Family Medicine 01/10/22 Estefany Preciado MD [address] [place] [address] Primary Staff Physician Family Medicine 01/10/22 Gagan Goodrich MD [address] [place] [address] Primary Staff Physician Family Medicine 01/10/22 [facility] [address] [place] [address] Primary Service Family Medicine 01/10/22 Sagar Stout DO [address] [place] [address] Primary Staff Physician Family Medicine 01/10/22 Roderick Hidalgo DO [address] [place] [address] Family Medicine 01/21/22 [facility] [address] [place] [address] Primary Staff Physician Family Medicine 01/21/22 Elis Jean Baptiste, certified orthoptistAssistant Track Coach 04/23/22 Sprinkler Fitter Helper Relationship Specialty Start Date End Date Portia Calhoun DO [address] [place] [address] [phone] PCP - General Family Medicine 05/15/23 Franko Wiley DO [address] [place] [address] Primary Staff Physician Family Medicine 01/10/22 Roderick Hidalgo DO [address] [place] [address] Primary Staff Physician Family Medicine 01/10/22 Dorita Cabrera DO [address] [place] [address] Primary Staff Physician Family Medicine 01/10/22 Chay Preciado MD [address] [place] [address] Primary Staff Physician Family Medicine 01/10/22 Estefany Preciado MD [address] [place] [address] Primary Staff Physician Family Medicine 01/10/22 Gagan Goodrich MD [address] [place] [address] Primary Staff Physician Family Medicine 01/10/22 Ruth Vera [address] [place] [address] Primary Service Family Medicine 01/10/22 Sagar Stout DO [address] [place] [address] Primary Staff Physician Family Medicine 01/10/22 Roderick Hidalgo, DO [address] [place] [address] Family Medicine 01/21/22 [facility] [address] [place] [address] Primary Staff Physician Family Medicine 01/21/22 Elis Jean Baptiste, certified orthoptistAssistant Track Coach 04/23/22 Sprinkler Fitter Helper Relationship Specialty Start Date End Date Portia Calhoun DO [address] [place] [address] [phone] PCP - General Family Medicine 05/15/23 Franko Wiley DO [address] [place] [address] Primary Staff Physician Family Medicine 01/10/22 Roderick Hidalgo, DO [address] [place] [address] Primary Staff Physician Family Medicine 01/10/22 Dorita Cabrera DO [address] [place], [place] [phone] Primary Staff Physician Family Medicine 01/10/22 Chay Preciado MD [address] [place] [address] Primary Staff Physician Family Medicine 01/10/22 Estefany Preciado MD [address] [place] [address] Primary Staff Physician Family Medicine 01/10/22 Gagan Goodrich MD [address] [place] [address] Primary Staff Physician Family Medicine 01/10/22 [facility] [address] [place] [address] Primary Service Family Medicine 01/10/22 Sagar Stout, DO [address] [facility] [place] [address] Primary Staff Physician Family Medicine 01/10/22 Roderick Hidalgo, DO [address] [facility] [place] [address] Family Medicine 01/21/22 [facility] [address] [place] [address] Primary Staff Physician Family Medicine 01/21/22 Elis Jean Baptiste, certified orthoptistAssistant Track Coach 04/23/22 Sprinkler Fitter Helper Relationship Specialty Start Date End Date Portia Calhoun DO [address] [place] [phone] PCP - General Family Medicine 05/15/23 Franko Wiley, DO [address] [place] [address] Primary Staff Physician Family Medicine 01/10/22 Roderick Hidalgo, [address] [facility] [place] [address] Primary Staff Physician Family Medicine 01/10/22 Dorita Cabrera DO [address] [place] [address] Primary Staff Physician Family Medicine 01/10/22 Chay Preciado MD [address] [place] [address] Primary Staff Physician Family Medicine 01/10/22 Estefany Preciado MD [address] [place] [address] Primary Staff Physician Family Medicine 01/10/22 Gagan Goodrich MD [address] [place] [address] Primary Staff Physician Family Medicine 01/10/22 [facility] [address] [place] [address] Primary Service Family Medicine 01/10/22 Sagar Stout DO [address] [place] [address] Primary Staff Physician Family Medicine 01/10/22 Roderick Hidalgo DO [address] [place] [address] Family Medicine 01/21/22 [facility] [place] [address] [place] [address] Primary Staff Physician Family Medicine 01/21/22 Elis Jean Baptiste, certified orthoptistAssistant Track Coach 04/23/22 Sprinkler Fitter Helper Relationship Specialty Start Date End Date Portia Calhoun [address] [place] [phone] PCP - General Family Medicine 05/15/23 Franko Wiley DO [address] [place] [place] [address] Primary Staff Physician Family Medicine 01/10/22 Roderick Hidalgo DO [address] [place] [address] Primary Staff Physician Family Medicine 01/10/22 Dorita Cabrera DO [address] [place] [address] Primary Staff Physician Family Medicine 01/10/22 Chay Preciado MD [address] [place] [address] Primary Staff Physician Family Medicine 01/10/22 Esetfany Preciado MD [address] [place] [address] Primary Staff Physician Family Medicine 01/10/22 Gagan Goodrich MD [address] [place] [address] Primary Staff Physician Family Medicine 01/10/22 Ruth Vera [address] [place] [address] Primary Service Family Medicine 01/10/22 Sagar Stout DO [address] [place] [address] Primary Staff Physician Family Medicine 01/10/22 Roderick Hidalgo, DO [address] [place] [address] Family Medicine 01/21/22 [facility] [place] [address] [place] [address] Primary Staff Physician Family Medicine 01/21/22 Elis Jean Baptiste, certified orthoptistAssistant Track Coach 04/23/22 Sprinkler Fitter Helper Relationship Specialty Start Date End Date Portia Calhoun DO [address] [place] [address] [phone] PCP - General Family Medicine 05/15/23 Franko Wiley DO [address] [place] [address] Primary Staff Physician Family Medicine 01/10/22 Roderick Hidalgo, [address] [place] [address] Primary Staff Physician Family Medicine 01/10/22 Dorita Cabrera, [address] [place], [place] [address] Primary Staff Physician Family Medicine 01/10/22 Chay Preciado MD [address] [place] [address] Primary Staff Physician Family Medicine 01/10/22 Estefany Preciado MD [address] [place] [address] Primary Staff Physician Family Medicine 01/10/22 Gagan Goodrich MD [address] [facility] [place] [address] Primary Staff Physician Family Medicine 01/10/22 [facility] [address] [place] [address] Primary Service Family Medicine 01/10/22 Sagar Stout DO [address] [facility] [place] [address] Primary Staff Physician Family Medicine 01/10/22 Roderick Hidalgo DO [address] [facility] [place] [address] Family Medicine 01/21/22 [facility] [address] [facility] [place] [address] Primary Staff Physician Family Medicine 01/21/22 Elis Jean Baptiste, certified orthoptistAssistant Track Coach 04/23/22 Sprinkler Fitter Helper Relationship Specialty Start Date End Date Portia Calhoun DO [address] [place] [address] PCP - General Family Medicine 05/15/23 Franko Wiley DO [address] [facility] [place] [address] Primary Staff Physician Family Medicine 01/10/22 Roderick Hidalgo, [address] [place] [address] Primary Staff Physician Family Medicine 01/10/22 Dorita Cabrera DO [address] [place] [address] Primary Staff Physician Family Medicine 01/10/22 Chay Preciado MD [address] [place] [address] Primary Staff Physician Family Medicine 01/10/22 Estefany Preciado MD [address] [place] [address] Primary Staff Physician Family Medicine 01/10/22 Gagan Goodrich MD [address] [place] [address] Primary Staff Physician Family Medicine 01/10/22 [facility] [address] [place] [address] Primary Service Family Medicine 01/10/22 Sagar Stout DO [address] [place] [address] Primary Staff Physician Family Medicine 01/10/22 Roderick Hidalgo DO [address] [place] [address] Family Medicine 01/21/22 [facility] [address] [place] [address] Primary Staff Physician Family Medicine 01/21/22 Elis Jean Baptiste, certified orthoptistAssistant Track Coach 04/23/22 Sprinkler Fitter Helper Relationship Specialty Start Date End Date Portia Calhoun [address] [place] [address]34 PCP - General Family Medicine 05/15/23 Franko Wiley DO [address] [place] [address] Primary Staff Physician Family Medicine 01/10/22 Roderick Hidalgo DO [address] [facility] [place] [address] Primary Staff Physician Family Medicine 01/10/22 Dorita Cabrera DO [address] [place] [address] Primary Staff Physician Family Medicine 01/10/22 Chay Preciado MD [address] [place] [address] Primary Staff Physician Family Medicine 01/10/22 Estefany Preciado MD [address] [place] [address] Primary Staff Physician Family Medicine 01/10/22 Gagan Goodrich MD [address] [place] [address] Primary Staff Physician Family Medicine 01/10/22 [facility] [address] [place] [address] Primary Service Family Medicine 01/10/22 Sagar Stout, DO [address] [place] [address] Primary Staff Physician Family Medicine 01/10/22 Roderick Hidalgo, DO [address] [place] [address] Family Medicine 01/21/22 [facility] [address] [place] [address] Primary Staff Physician Family Medicine 01/21/22 Elis Jean Baptiste, certified orthoptistAssistant Track Coach 04/23/22 Sprinkler Fitter Helper Relationship Specialty Start Date End Date Portia Calhoun DO [address] [place] [address] [phone] PCP - General Family Medicine 05/15/23 Franko Wiley DO [address] [place] [address] Primary Staff Physician Family Medicine 01/10/22 Roderick Hidalgo, [address] [place] [address] Primary Staff Physician Family Medicine 01/10/22 Dorita Cabrera, DO [address] [place] [address] Primary Staff Physician Family Medicine 01/10/22 Chay Preciado MD [address] [place] [address] Primary Staff Physician Family Medicine 01/10/22 Estefany Preciado MD [address] [place] [address] Primary Staff Physician Family Medicine 01/10/22 Gagan Goodrich MD [address] [place] [address] Primary Staff Physician Family Medicine 01/10/22 [facility] [address] [place] [address] Primary Service Family Medicine 01/10/22 Sagar Stout DO [address] [place] [address] Primary Staff Physician Family Medicine 01/10/22 Roderick Hidalgo DO [address] [facility] [place] [address] Family Medicine 01/21/22 [facility] [address] [place] [address] Primary Staff Physician Family Medicine 01/21/22 Elis Jean Baptiste, certified orthoptistAssistant Track Coach 04/23/22 Sprinkler Fitter Helper Relationship Specialty Start Date End Date Portia Calhoun DO [address] [place] [address] 52130 PCP - General Family Medicine 05/15/23 Franko Wiley DO [address] [place] [address] Primary Staff Physician Family Medicine 01/10/22 Roderick Hidalgo DO [address] [place] [address] Primary Staff Physician Family Medicine 01/10/22 Dorita Cabrera DO [address] [place] [address] Primary Staff Physician Family Medicine 01/10/22 Chay Preciado MD [address] [place] [address] Primary Staff Physician Family Medicine 01/10/22 Estefany Preciado MD [address] [place] [address] Primary Staff Physician Family Medicine 01/10/22 Gagan Goodrich MD [address] [place] [address] Primary Staff Physician Family Medicine 01/10/22 Ruth Vera [address] [place] [address] Primary Service Family Medicine 01/10/22 Sagar Stout DO [address] [place] [address] Primary Staff Physician Family Medicine 01/10/22 Roderick Hidalgo DO [address] [facility] [place] [address] Family Medicine 01/21/22 [facility] [place] [address] [place] [address] Primary Staff Physician Family Medicine 01/21/22 Elis Jean Baptiste, certified orthoptistAssistant Track Coach 04/23/22 FOR RECORDS PERTAINING TO PATIENTS WHO ARE OR HAVE BEEN ENROLLED IN A CHEMICAL DEPENDENCY/SUBSTANCEABUSE PROGRAM, SOME INFORMATION MAY BE OMITTED. This clinical summary was aggregated from multiple sources. Caution should be exercised in using it in the provision of clinical care. This summary normalizes information from multiple sources, and as a consequence, information in this document may materially change the coding, format and clinical context of patient data. In addition, data may be omitted in some cases. CLINICAL DECISIONS SHOULD BE BASED ON THE PRIMARY CLINICAL RECORDS. [facility]. provides no warranty or guarantee of the accuracy or completeness of information in this document.
[2025-05-13] MEDS: Lactated Ringers 1,000 ML 15 ML IV (06:41)
--- NOTE | 2025-05-13 06:50 | PRE.ANES_ITS ---
ASA Classification* ASA Classification ASA Classification: 2 Assessment & Plan Anesthesia* Anesthesia Assessment Anesthesia Assessment: Discussed sedation and/or anesthesia options, risks, benefits, and alternatives with patient/parents/legal guardian/POA. Questions invited. The patient/parents/legal guardian/POA seems to understand and agrees to proceed with anesthesia plan. Reviewed the physical assessment, medical history, allergy history and patient home medications list prior to surgery/procedure/anesthetic and documented any changes. Performed airway and anesthesia risk assessments. Anesthesia Type Anesthesia Type: General History Source History Obtained from:: Patient and Chart Anesthesia Focused Assessment* Temperature: 98.2 F Pulse Rate: 68 Blood Pressure: 113/60 Respiratory Rate: 18 Pulse Ox: 96 Oxygen Delivery Method: Room Air Airway Assessment Mouth opens: >3 cm Mallampati Score: IV Teeth Condition: Dentures (Patient has full upper and lower dentures. They will come out.) Neck Range of motion (ROM): Limited ROM (Slight Decrease) Labs Anesthesia Preop lab: CBC WBC, (4.4-11.0) 6.9 K/mm3 05/10/25, 12: RBC, (4.2-5.4) 3.75 M/mm3 L 05/10/25, 12: Hgb, (12.0-15.0) 11.2 g/dL L 05/10/25, : Hct, (37-47) 35.2 % L 05/10/25, 12: Plt Count, (150-450) 247 K/mm3 05/10/25, 12: CHEMISTRY Potassium, (3.3-5.1) 4.1 mmol/L 05/10/25, 12: Sodium, (133-145) 140 mmol/L 05/10/25, 12: BUN, (4-19) 9 mg/dL 05/10/25, 12: Creatinine, (0.70-1.20) 0.79 mg/dL 05/10/25, 12: Glucose, (70-99) 82 mg/dL 05/10/25, 12: COAG Pre-Assessment Diagnosis/Proposed Procedure Planned Operative Procedure(s): (R) Osteotomy of the right first digit, Arthrodesis of the right second digit with possible arthroplasty, Right foot hardware removal. 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 When Was Last Pacemaker Check QUESTION #4 FULL TEXT: You/Your Family Experience fever (hyperthermia) with Anesthesia Last Oral Intake Last Oral intake: Last Oral Intake NPO since 23:45 05/13/25 06:25 Meds taken in AM with sips of No 05/13/25 06:25 water? Meds patient instructed to take am of surgery PONV PONV - credit and loan collections supervisor: PONV - credit and loan collections supervisor Female Yes 05/09/25 11:43 HX of Motion Sickness No 05/09/25 11:43 HX of N/V After Surgery No 05/09/25 11:43 Non-Smoker Yes 05/09/25 11:43 Duration of Surgery greater No 05/09/25 11:43 than 60 minutes Number of Risk Factors 2 05/09/25 11:43 PONV Score Moderate Risk 05/09/25 11:43 Height & Weight Height & Weight: Anesthesia: Height & Weight Height 5 ft 2 in 05/13/25 06:25 Weight: 62.1 kg 05/13/25 06:25 Body Mass Index (BMI) 25.0 05/13/25 06:25 Respiratory Assessment Respiratory Assessment - credit and loan collections supervisor: Respiratory Tract Infection Hx - credit and loan collections supervisor Hx Respiratory Tract Infection No 05/09/25 11:43 STOP Sleep Apnea STOP Sleep Apnea - credit and loan collections supervisor: STOP Sleep Apnea - credit and loan collections supervisor Hx Hypertension No 05/09/25 11:43 Hx Sleep Apnea No 05/09/25 11:43 CPAP No 08/19/13 11:15 BIPAP No 08/19/13 11:15 Do you snore loudly (louder No 05/09/25 11:43 than talking or can be heard Do you often feel tired/ No 05/09/25 11:43 fatigued/ sleepy during daytime? Has anyone observed you stop No 05/09/25 11:43 breathing during sleep? STOP Results Negative 05/09/25 11:43 QUESTION #5 FULL TEXT : Do you snore loudly (louder than talking or can be heard through closed doors)? 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 Specify any problems Hx of Preganancy in last 3 N/A 05/09/25 11:43 Months Nurse Filling Out Transfusion NBUCHER 05/09/25 11:43 & Questions: Date: 05/09/25 05/09/25 11:43 Time: 11:44 05/09/25 11:43 Patient unable to answer at this time (ie. confused, unrespo /Reproduction History /Reproductive History - credit and loan collections supervisor: /Reproductive Hx- credit and loan collections supervisor Hx Now No 05/09/25 11:43 Gestational Age (in weeks): EDC: Hx Hx Para Hx Section SAB No 05/09/25 11:43 Does the father of the baby or his family experience fever w Father of the baby Malignant Hypertension history comment Active Medications Active Medications: Current Medications Generic Name Dose Route Start Last Admin Trade Name Freq PRN Reason Stop Dose Admin Cefazolin Sodium 2 gm/ Sodium 110 mls @ 200 mls/hr 05/13/25 07:00 Chloride IV 05/13/25 07:32 INTRAOP ONE Lactated Ringer's 1,000 mls @ 15 mls/hr 05/13/25 06:45 05/13/25 06:41 IV 15 mls/hr .Q48H EDI Administration PFSH Medical History Wears glasses Depression Anxiety Arthritis Wears dentures History of hiatal hernia History of IBS Non-smoker History of stress test Cardiology follow-up encounter Home Medications ?Medication ?Instructions ?Recorded ?Last Taken ?Type Bifidobacterium longum 10 million 10,000,000 cell PO D AILY 05/09/25 05/11/25 History cell capsule (Align (B.longum)) citalopram 40 mg tablet 40 mg PO DAILY 05/09/2504/25 History hydroxyzine HCl 25 mg tablet 25 mg PO TID PRN anxiety 05/09/25 05/12/25 History metoprolol succinate 25 mg 25 mg PO DAILY 05/09/25 History tablet,extended release 24 hr pregabalin 100 mg capsule 100 mg PO TID 05/09/2505/12 History vit C 250 mg-vit E 90 mg-zinc 40 1 tab PO BID 05/09/25 05/12/25 History mg-copper 1 [id number] capsule ([facility] AREDS-2) Allergy/AdvReac Type Severity Reaction Status Date / Time No Known Allergies Allergy Verified 05/13/25 06:22 Surgical History History of bilateral cataract extraction History of esophagogastroduodenoscopy (EGD) History of colonoscopy History of cholecystectomy History of ankle surgery History of back surgery History of foot surgery (~2021) History of brachioplasty (~2013) Social History Smoking Status: Never smoker Review of Systems (Anesthesia) ROS Narrative System reviewed and no additional complaints, except as documented.
--- NOTE | 2025-05-13 07:25 | RAD_ITS ---
PROCEDURE: Intraoperative fluoroscopy. 05/13/2025 REASON FOR EXAM: OSTEOTOMY OF 1ST DIGIT, ARTHRODESIS 2ND DIGIT TECHNIQUE: Procedure Code: RADFO2 Modality: DX Procedure: FOOT 2 VIEWS. Fluoroscopy: 44 seconds. Radiation dose: 0.27 mGy. 3 images were submitted. COMPARISON: None FINDINGS: Intraoperative fluoroscopic images provided for arthrodesis of the 2nd digit and osteotomy of the 1st digit. RAD/Foot 2 Views IMPRESSION: Intraoperative fluoroscopic services provided as described. Reading Location: [id number]
[2025-05-13] MEDS: Lactated Ringers 1,000 ML 1000 ML IV (07:30)
[2025-05-13] MEDS: Cefazolin 1 GM/5 ML Vial 2 GM IV (07:30)
--- NOTE | 2025-05-13 07:30 | FOOT_PTH ---
PATIENT: BRENT MOSQUEDA LOC: [facility] – [place], [place] U#:[id number] AGE/SX: 74/F ROOM: RE05/13/[address]: Dr. Yung Villatoro DPM : 1950 BED: DIS: 05/13/2025 SPEC #: [id number] RECD: 05/13/25 09:56 STATUS: SMILEY RESulaiman #: [id number] JOSÉ MIGUEL: 05/13/25 07:[address]: Yung Villatoro DEPT: SURGICAL PATHOLOGY RECD BY: Spencer Falcon ENTERED: 05/13/25 11:17 SP TYPE: FOOT OTHR DR: Dr. Rony Calhoun, DO Tissues: A - Toe, NOS B - Toe, NOS Procedures: Decalcification bone/plaque Surgery Specimen Level III HEADER OPERATION: Osteotomy of right first digit, arthroplasty of right foot PRE-OP DIAGNOSIS: Right foot symptomatic hardware, hallux valgus, hammertoe 2nd digit TISSUE SUBMITTED: A- Right foot second digit hammertoe, B- Right foot first metatarsal MICROSCOPIC DIAGNOSIS A. Right foot, 2nd digit, hammertoe, excision: - Articular bone and synovium with reactive and degenerative changes. B. Right foot, first metatarsal, excision: - Articular bone and synovium with reactive and degenerative changes. MICROSCOPIC DESCRIPTION Slides are reviewed. GROSS DESCRIPTION Received in 2 formalin containers labeled with the patient's name and date of . Designated as: A. Right foot second digit hammertoe is a 1.0 x 0.8 x 0.5 cm balderas-yellow portion of bone surfaced by focally eroded, balderas articular cartilage. Sectioning reveals yellow medullary bone. Entirely submitted in 1 cassette, following decalcification. B. Right foot first metatarsal is a 1.9 x 1.4 x 0.3 cm slightly ovoid, balderas-yellow portion of bone surfaced by balderas, slightly eroded articular cartilage. Sectioning reveals yellow medullary bone. Entirely submitted in 1 cassette, following decalcification. NM 05/13/2025 CPT:98808m6,79029c2
[2025-05-13] MEDS: Lidocaine 1% (5 ml sdv) 5 ML Vial IV (07:38)
--- NOTE | 2025-05-13 07:39 | PCM.DC ---
Discharge Instructions DC O2, CPAP, BIPAP needs Home O2 Discharge instructions: No Dressing / Incision Discharge Activity: May Not Drive Weight Bearing Status: No weight bearing (No weightbearing right foot) Keep extremity elevated above heart level: Operative Extremity (Keep right foot elevated for at least 50 minutes of every hour using pillows) Dressing / Incision Call your doctor if your incision/area has: Continuous Slow Oozing, Sudden Increased Bleeding and Foul Smelling Discharge Call your doctor if you observe: Fever of 101 or Higher, Shortness of breath, Chest pain, Increased palpitations (irregular heartbeat), Calf discomfort and Uncontrolled pain Change Dressing in: do not change dressing Remove Dressing in: do not remove dressing Cleanse incision/area with: Keep Dressing Clean & Dry Follow Up Care Please Follow Up With: Yung Villatoro DPM When: At [facility] next week, but sooner if needed. Call Dr. Villatoro over weekend if needed: [phone] Test Results: Test results from this visit will be discussed in further detail at your follow-up appointment, if applicable. Discharge Plan Admission Attending Provider: Yung Villatoro Primary Care Provider: Rony Calhoun Instructions Print Language: Bahraini Discharge Orders/Prescriptions Prescriptions: New hydrocodone-acetaminophen 5-325 mg tablet 1 tab PO Q6H PRN (Reason: pain) 3 Days Qty: 21 0RF Continued Align (B.longum) 10 million cell capsule 10,000,000 cell PO DAILY hydroxyzine HCl 25 mg tablet 25 mg PO TID PRN (Reason: anxiety) citalopram 40 mg tablet 40 mg PO DAILY metoprolol succinate 25 mg tablet extended release 24 hr 25 mg PO DAILY pregabalin 100 mg capsule 100 mg PO TID [facility] AREDS-2 250-90-40-1 mg capsule 1 tab PO BID Other Ambulatory Orders: 12 Lead EKG (Routine) Location: None Selected Ordered By: Dr. Gualberto Rodríguez Disposition Disposition (needs filled in before D/C Order can be placed): Home, Self Care
--- NOTE | 2025-05-13 09:37 | OP.PCM_ITS ---
Operative Report (Standard) Operative Information Date of Procedure: 05/13/25 Pre-Operative Diagnosis: Symptomatic hardware right foot Hallux Valgus right foot Hammer toe of right 2nd toe Post-Operative Diagnosis: Symptomatic hardware right foot Hallux Valgus right foot Hammer toe of right 2nd toe Contracted extensor hallucis longus tendon, right Bunion right 1st metatarsal Surgery/Procedure Performed: Removal of hardware right foot Jason osteotomy right 1st toe Extensor hallucis longus lengthening, right Cheilectomy right 1st metatarsal Arthroplasty right 2nd toe echocardiograph technician: Yes Weapons Mechanic: /Judith Tasks completed by medical assistant per diem: Closing and Retracting Type of Anesthesia: Local MAC RN Documented Start/Stop Times: Operation Date: 05/13/25 07:30 Case Time Into Pre-Op 05/13/25 06:03 Out of Pre-Op 05/13/25 07:28 Anesthesia Start 05/13/25 07:30 Into Room 05/13/25 07:30 Procedure Start 05/13/25 07:52 Procedure End 05/13/25 09:32 Anesthesia End 05/13/25 09:37 Out of Room 05/13/25 09:37 Into Recovery 05/13/25 09:42 Out of Recovery 05/13/25 10:11 Into Phase II Recovery 05/13/25 10:12 Out of Phase II 05/13/25 11:20 Procedure Start Time: 07:52 Procedure Stop Time: 09:32 Select all DRAINS/GRAFTS/IMPLANTS that apply: Implanted device Implanted device details: [employer] Fuseforce staple to right 1st toe proximal phalanx Estimated Blood Loss: 1mL Specimen collected: Yes Description of specimen(s) removed: Bone from right 1st metatarsal - sent to pathology Bone from right 2nd toe - sent to pathology Description of surgery: Indications: This is a 74 year old female with chronic right foot pain, has pain to 1st tarsometatarsal joint fusion site due to symptomatic hardware with promi nence, as well as deformity right 1st toe and deformity right 2nd toe with a lot of pain causing significant limitation with shoes and activities. Symptoms persist despite nonsurgical management and she has elected to proceed with surgical intervention. The procedures were reviewed with her, and said do whatever it takes to improve the foot because it is really bothering her. Reviewed possible benefits vs risks, goals and expectations. The consent forms were reviewed with her and she freely signed them. No guarantees were given nor implied. Operative Procedure: The patient was brought back to the operating room and was placed on the operating room in the supine position. The patient was carefully secured to the operating room table with a safety belt around her waist. A timeout was performed and the patient was properly identified and the surgical plan was confirmed. The patient received 2g of IV Ancef for antibiotic prophylaxis. The patient received MAC anesthesia per the anesthesia team. After the overlying skin was cleansed with 70% Isopropyl alcohol a total of 10mL of 0.5% Bupivacaine plain was given as a right midfoot nerve block and 1st and 2nd ray nerve block right foot. A well padded pneumatic tourniquet was applied around the patient's right ankle. The patient's right foot was scrubbed, prepped, and draped in the usual aseptic fashion. Further attention was directed to the patient's right foot, there was prominent hardware to the 1st tarsometatarsal joint fusion site, there was deformity of the right 1st and 2nd toes with significant contracture, the 2nd toe was a deformed hammer toe and the right 1st toe was laterally deviated and also dorsally deviated due to contracture. The patient's right foot was elevated for several minutes and the right ankle pneumatic tourniquet was inflated to 250mmHg. Removal of hardware right foot: Attention was directed to the 1st tarsometatarsal fusion site and the previous surgical incision was identified and utilized, which was incised via a skin incision with a 15 blade. Sharp and blunt dissection was carried down through the subcutaneous tissues with care taken to protect surrounding neurovascular structures. The Treace SpeedPlate and associated quad plate were identified at the first tarsometatarsal fusion site. The plates were carefully exposed, and were carefully freed using a 15 blade, the plates were sequentially removed without complication. Attention was then directed to the 4.0 mm cannulated screw traversing the first tarsometatarsal fusion site, which was identified and removed in its entirety without complication. All hardware was removed in toto without incident, and this was confirmed with intraoperative flouroscopy. The fusion site appeared stable following hardware removal. The surgical site was thoroughly irrigated with sterile saline. No complications were encountered during the procedure. The remaining tissues were noted to be healthy and viable. The subcutaneous tissue was reapproximated using 3-0 Vicryl and the skin was reapproximated using 3-0 Monocryl. Jason osteotomy right 1st toe: Attention was directed to the right hallux which was contracted and deviated laterally consistent with hallux valgus, it was also deviated dorsally consistent with a contracted and tight extensor hallucis longus tendon. A longitudinal medial skin incision was made over the proximal phalanx of the hallux. Dissection was carried carefully through the subcutaneous tissue with protection of all vital neurovascular structures. The periosteum was incised and reflected to expose the proximal phalanx. A medially based closing wedge osteotomy of the proximal phalanx was then performed using a sagittal saw. The wedge was removed, and the osteotomy was carefully closed, correcting the interphalangeal angular deformity and achieving improved alignment of the hallux in the transverse plane and frontal. The osteotomy was stabilized with internal fixation using appropriate fixation with a [employer] Fuseforce 10mm staple, achieving excellent compression and stability. Alignment and fixation were confirmed clinically and with fluoroscopy, demonstrating good correction and hardware position. The operative site was irrigated with copious amounts of sterile saline. The periosteum and deep tissues were reapproximated with 3-0 Vircyl, followed by reapproximation of the subcutaneous tissue with 3-0 Vicryl and skin with 3-0 Monocryl. Extensor hallucis longus tendon Z-lengthening, right hallux: Following completion of the Jason osteotomy, the hallux remained dorsally deviated in the sagittal plane and could not be fully reduced. The extensor hallucis longus tendon was found to be severely contracted and exerting excessive dorsal pull on the hallux, limiting plantarflexion and preventing adequate sagittal plane correction. A Z-lengthening of the extensor hallucis longus tendon was therefore necessary to release the deforming force and allow proper alignment of the hallux. Attention was directed to the extensor hallucis longus tendon, which was identified and exposed via a linear longitudinal skin incision using a 15 blade overlying the dorsal aspect of the tendon. Sharp dissection was completed down to the tendon. The tendon was noted to be markedly contracted. A Z-lengthening was performed in standard fashion. The tendon ends were then reapproximated under appropriate tension to allow improved plantarflexion of the hallux while maintaining functional continuity. The tendon was repaired using 4-0 Vicryl for the core repair, followed by reinforcement with a running 4-0 Prolene suture. Following repair, improved sagittal plane alignment of the hallux was noted. The operative site was irrigated with copious amounts of sterile saline. The tendon sheath was reapproximated with 3-0 Vircyl, followed by reapproximation of the subcutaneous tissue with 3-0 Vicryl and skin with 3-0 Monocryl. Cheilectomy right 1st metatarsal: Despite osseous correction of the proximal phalanx and release of the extensor hallucis longus tendon, the dorsal aspect of the first metatarsal head was found to be prominently impinging on the extensor tendon and limiting full reduction and motion of the hallux in the sagittal plane. This dorsal bony prominence created a mechanical block to correction and abnormal tendon tracking. A dorsal cheilectomy was therefore required to remove the impinging bone and restore a more anatomic contour to the first metatarsal head. Attention was directed to the dorsal aspect of the first metatarsophalangeal joint and incision was made using a 15 blade to the skin over the dorsal aspect of the joint. Sharp dissection was completed through the subcutaneous tissue layer, and the periosteum and capsular tissues were incised and partially reflected to expose the dorsal first metatarsal head, which was noted to be prominent. A dorsal cheilectomy was performed using a sagittal saw, removing the dorsal bony prominence. The remaining bone was contoured and smoothed to restore an anatomic profile. This allowed for proper clearance of the extensor hallucis longus tendon and allowed for complete reduction of the 1st toe which was confirmed, now with good and proper motion and sagittal plane alignment of the hallux. The joint capsule reapproximated with 3-0 Vircyl, followed by reapproximation of the subcutaneous tissue with 3-0 Vicryl and skin with 3-0 Monocryl. Arthroplasty right 2nd toe: The patient demonstrated a significant hammer toe deformity of the right second toe with associated contracture, resulting in malalignment and abnormal pressure distribution. A derotational arthroplasty was therefore indicated to correct the digital deformity, restore proper alignment, and reduce pathologic pressure. Attention was directed to the right second toe, which was noted to be contracted and rotated. A longitudinal elliptical skin skin incision was made over the proximal interphalangeal joint using a 15 blade, incorporating the necessary skin to allow for correction of the rotational deformity. Dissection was carried carefully through the subcutaneous tissue with protection of all vital neurovascular structures. The extensor tendon was garima ntified and transected to allow exposure of the proximal interphalangeal joint. The head of the proximal phalanx was exposed and resected using a sagittal saw. Care was taken to preserve the base of the middle phalanx. The toe was then derotated and realigned, correcting the rotational deformity and achieving improved digital alignment. The extensor tendon was reapproximated as appropriate, with redundant tendon excised. The surgical site was irrigated with copious amounts of sterile saline. The skin was closed in a derotated fashion using 3-0 Monocryl for the skin, maintaining the corrected alignment of the toe. Final position of the second toe was assessed and found to be excellent. An additional 17mL of 0.5% Bupivacaine plain was given as a local nerve block to the right foot to help with post op pain control. A dressing was applied consisting of Cavilon to the sutured skin incisions, steristrips strips across the sutured skin incisions, Betadine soaked adaptic, 4x4 gauze, kerlix and madeleine dressing. While applying the dressing the pneumatic tourniquet was deflated. The pneumatic tourniquet was deflated (total tourniquet time was 97 minutes) with dressing application and there was immediate return of warmth and perfusion to the patient's left foot with CFT < 2 seconds to all toes. The patient tolerated the above procedure and anesthesia well with no complications. Post operative orders were placed, post operative instructions have been reviewed with patient, and she was given verbal and written discharge instructions again. She already has pain medication at home per pain management. She is going to remain nonweightbearing left foot and keep left foot elevated for at least 50 minutes of every hour. She is going to follow up with me next week in office, but sooner if needed. Surgical Findings: As noted above Complications Complications: No
[2025-05-13] MEDS: fentaNYL 100 MCG/2 ML Ampul IV (09:40)
--- NOTE | 2025-05-13 09:45 | RAD_ITS ---
PROCEDURE: FOOT MIN 3 VIEWS 05/13/2025 REASON FOR EXAM: POST OP PODIATRY SURGERY TECHNIQUE: Procedure Code: RADFO Modality: DX Procedure: FOOT MIN 3 VIEWS COMPARISON: Prior intraoperative fluoroscopic services. FINDINGS: Metallic staple is seen at the base of the proximal phalanx of the great toe. Hardware removal of the 1st tarsometatarsal joint. Postoperative soft tissue changes. RAD/Foot min 3 Views IMPRESSION: Metallic clips seen at the base of the proximal phalanx of the great toe. Hardware removal at the 1st tarsometatarsal joint. Reading Location: [id number]
--- NOTE | 2025-05-13 10:16 | PCM.POST.ANE ---
Anesthesia: Postop Eval I Current Vital Signs Temperature: 98 F Pulse Rate: 73 Blood Pressure: 123/87 Respiratory Rate: 12 Pulse Ox: 95 Oxygen Delivery Method: Room Air Assessment Airway patent: Yes Spontaneous unlabored respirations: Yes Mental status: Awake and Calm nausea: No Vomiting: No Anesthesia Complication: No Fluid Hydration Crystalloid volume administer (ml): 600 Total IV fluid infused: 600 Progress Note Anesthesia document: Postop Eval 1 completed: Yes
--- NOTE | 2025-05-13 10:22 | POSTOPAN2_ITS ---
Anesthesia Postop Eval I Sum Postop Eval Completion status Anesthesia document: Postop Eval 1 completed: Yes Anesthesia Postop Eval I Summary Anesthesia Postop Eval I Summary: Anesthesia Postop Eval I: Assessment Summary Airway patent Yes 05/13/25 10:18 [email or web address] Spontaneous unlabored Yes 05/13/25 10:18 [email or web address] respirations Mental status Awake,Calm 05/13/25 10:18 [email or web address] nausea No 05/13/25 10:18 [email or web address] Vomiting No 05/13/25 10:18 [email or web address] Anesthesia Postop Eval I: Fluid Summary Crystalloid volume administer 600 05/13/25 10:18 [email or web address] (ml) Colloids volume administered ( ml) Blood Product volume administered (ml) Total IV fluid infused 600 05/13/25 10:18 [email or web address] Anesthesia Postop Eval I: Summary Notes Anesthesia Complication No 05/13/25 10:18 [email or web address] Anesthesia Complication Comment: Post-operative progress note Anesthesia: Postop Eval II Evaluation Mental status: Awake and Calm Pain Level: 1 nausea: No Vomiting: No Complications Anesthesia Complication: No
--- NOTE | 2025-05-13 10:22 | PCM.POSTANE2 ---
Anesthesia Postop Eval I Sum Postop Eval Completion status Anesthesia document: Postop Eval 1 completed: Yes Anesthesia Postop Eval I Summary Anesthesia Postop Eval I Summary: Anesthesia Postop Eval I: Assessment Summary Airway patent Yes 05/13/25 10:18 [email or web address] Spontaneous unlabored Yes 05/13/25 10:18 [email or web address] respirations Mental status Awake,Calm 05/13/25 10:18 [email or web address] nausea No 05/13/25 10:18 [email or web address] Vomiting No 05/13/25 10:18 [email or web address] Anesthesia Postop Eval I: Fluid Summary Crystalloid volume administer 600 05/13/25 10:18 [email or web address] (ml) Colloids volume administered ( ml) Blood Product volume administered (ml) Total IV fluid infused 600 05/13/25 10:18 [email or web address] Anesthesia Postop Eval I: Summary Notes Anesthesia Complication No 05/13/25 10:18 [email or web address] Anesthesia Complication Comment: Post-operative progress note Anesthesia: Postop Eval II Evaluation Mental status: Awake and Calm Pain Level: 1 nausea: No Vomiting: No Complications Anesthesia Complication: No
== END 2025-05-13 11:20 | disposition home or self-care (01) ==
LOC: SDC 05:55 → AC 05:55
PROVIDERS: PCP Family Medicine; Referring Provider Podiatrist; Visit Provider Podiatrist
PROC: (CPT 28285; principal; 2025-05-13 07:15)
DX: M21.611 Bunion of right foot (principal); M20.41 Other hammer toe(s) (acquired), right foot; M20.11 Hallux valgus (acquired), right foot; M24.574 Contracture, right foot; M19.071 Primary osteoarthritis, right ankle and foot
CPT/HCPCS: 28285; 20680; 28310; 28289; 28234; 01480; 36415; 73620; 73630; 76000; 80053; 85025; 88304; 88305; 88311; 93005; C1713; J2405